=== PATIENT | male | born 1935 | race Native Hawaiian/Other Pacific Islander ===

== ENCOUNTER 2016-07-26 22:22 | Inpatient (IN) | payer MEDICARE ==
[2016-07-26 22:23] VITALS: BMI 23.1
[2016-07-26] MEDS ORDERED: Albuterol-Ipratrop 3 mg / 0.5 (3 ml) UD ONE (22:29)
--- NOTE | 2016-07-26 22:56 | C.PDOC ---
History Of Present Illness 81 y/o male presents to the ED with complains of SOB which onset after a bowel movement today. Pt denies chest pain, cough, dizziness or any other complaints. PMHx diabetes, renal failure. Pt stopped taking diuretic after running out of med 10 days ago. Chief Complaint (Nursing): Shortness Of Breath History Per: Patient History/Exam Limitations: no limitations Onset/Duration Of Symptoms: Hrs Current Symptoms Are (Timing): Still Present Severity: Mild Associated Symptoms: denies: Fever, Chills, Chest Pain, Dizziness Recent travel outside of the [place]: No Past Medical History Reviewed: Historical Data, Nursing Documentation, Vital Signs Vital Signs: Last Vital Signs Temp Pulse 73 07/26/16 22:36 Resp 18 07/26/16 23:15 BP 153/69 H 07/26/16 23:15 Pulse Ox 98 07/27/16 00:19 - Medical History PMH: Anemia, Diabetes, Diverticulitis, HTN, Hypercholesterolemia, Mitral Valve Prolapse, Pneumonia, Chronic Kidney Disease Surgical History: Appendectomy, Coronary Stent (3 yrs), Endoscopy - [facility] Procedures CYSTOSCOPY NEC (11/20/13) INSERT INDWELLING CATH (11/20/13) OTH LYSIS-PERITONEAL ADHES (11/20/13) URETHRAL DILATION (11/20/13) Family History: States: Unknown Family Hx - Social History Hx Tobacco Use: No Hx Alcohol Use: No Hx Substance Use: No - Immunization History Hx Tetanus Toxoid Vaccination: No Hx Influenza Vaccination: No Hx Pneumococcal Vaccination: No Review Of Systems Except As Marked, All Systems Reviewed And Found Negative. Constitutional: Negative for: Fever Cardiovascular: Negative for: Chest Pain Respiratory: Positive for: Shortness of Breath. Negative for: Cough Gastrointestinal: Negative for: Vomiting Neurological: Negative for: Dizziness Physical Exam - Physical Exam Appears: Non-toxic, No Acute Distress Skin: Warm, Dry, No Rash Head: Atraumatic, Normacephalic Oral Mucosa: Moist Throat: Normal, No Erythema Neck: Normal ROM, Supple, Other (JVD) Chest: Symmetrical Cardiovascular: Rhythm Regular, No Murmur Respiratory: Rales (bilateral lower lung quispe), No Rhonchi, No Wheezing, Other (patient short of breath) Gastrointestinal/Abdominal: Soft Extremity: No Pedal Edema Extremity: Bilateral: Atraumatic Neurological/Psych: Oriented x3, Normal Speech ED Course And Treatment - Laboratory Results Result Diagrams: 07/26/16 23:33 07/26/16 23:33 ECG: Interpreted By Me, Viewed By Me ECG Rhythm: Sinus Rhythm, 1st Degree HB ECG Interpretation: Normal, No Acute Changes Interpretation Of ECG: NSR, 1st degree av block, no acute change, normal tracings Rate From EC O2 Sat by Pulse Oximetry: 98 (on room air) Pulse Ox Interpretation: Normal - Radiology CXR: Interpreted by Me, Viewed By Me CXR Interpretation: Yes: Cardiomegaly, Other (pulm. congestion, lisa bases) Medical Decision Making Medical Decision Making: Plan: CXR, EKG, labs, IV fluids, Lasix Disposition Discussed With : Ana Noel Doctor Will See Patient In The: Hospital Counseled Patient/Family Regarding: Diagnosis - Disposition Disposition: HOSPITALIZED Disposition Time: 00:35 Condition: STABLE - POA Present On Arrival: None - Clinical Impression Clinical Impression: Dyspnea, CHF exacerbation, Hypertension, Renal insufficiency - Scribe Statement The provider has reviewed the documentation as recorded by the Beatris Moct[place]uma Provider Attestation: All medical record entries made by the Beatris were at my direction and personally dictated by me. I have reviewed the chart and agree that the record accurately reflects my personal performance of the history, physical exam, medical decision making, and the department course for this patient. I have also personally directed, reviewed, and agree with the discharge instructions and disposition.
[2016-07-26 23:36] LABS: BASO # 0.1 K/uL (0.0-0.2); BASO % 0.7 % (0.0-2.0); EOS # 0.4 K/uL (0.0-0.7); EOS % 3.8 % (0.0-4.0); HEMATOCRIT 25.5 % (35.0-51.0); LYMPH # 1.5 K/uL (1.0-4.3); LYMPH % 16.3 % (20.0-40.0); MEAN CELL VOLUME 61.6 fL (80.0-94.0); MEAN CORPUSCULAR HEMOGLOBIN 19.2 pg (27.0-31.0); MEAN CORPUSCULAR HGB CONC 31.1 g/dL (33.0-37.0); MEAN PLATELET VOLUME 8.8 fL (7.2-11.7); MONO # 1.1 K/uL (0.0-0.8); MONO % 11.3 % (0.0-10.0); RED CELL DISTRIBUTION WIDTH 18.1 % (11.5-14.5); WHITE BLOOD COUNT 9.5 K/uL (4.8-10.8)
[2016-07-26 23:41] LABS: POTASSIUM 4.5 mmol/L (3.6-5.2)
[2016-07-26 23:43] LABS: BILIRUBIN,TOTAL 0.4 mg/dL (0.2-1.3)
[2016-07-26 23:44] LABS: ALB/GLOB RATIO 1.4 (1.0-2.1); TOTAL PROTEIN 7.1 g/dL (6.3-8.3)
[2016-07-26 23:45] LABS: CALCIUM 8.3 mg/dl (8.6-10.4)
[2016-07-26 23:56] LABS: TROPONIN I 0.015 ng/mL (0.00-0.120)
[2016-07-27] MEDS ORDERED: Albuterol HFA 90 mcg/actuation (8 g) IH PRN (00:58)
--- NOTE | 2016-07-27 09:10 | RAD ---
PROCEDURE: CHEST RADIOGRAPH, 1 VIEW HISTORY: SOB COMPARISON: 02/11/2016 FINDINGS: LUNGS: Clear. PLEURA: No pneumothorax or pleural fluid seen. CARDIOVASCULAR: Mild cardiomegaly. Mild vascular congestion OSSEOUS STRUCTURES: No significant abnormalities. VISUALIZED UPPER ABDOMEN: Normal. OTHER FINDINGS: None. IMPRESSION: No active disease.
[2016-07-27] MEDS: Enoxaparin 30 mg Syringe SC SCH (09:34)
[2016-07-27] MEDS: (Novolog) Insulin Aspart, Recombinant 100 u/ml 10 ml vial SC SCH ×3 (09:38→16:52)
[2016-07-27] MEDS ORDERED: HYDROCHLOROTHIAZIDE PO SCH (10:00)
[2016-07-27] MEDS ORDERED: LOSARTAN PO SCH (10:00)
[2016-07-27] MEDS ORDERED: OLMESARTAN MED PO SCH (10:00)
[2016-07-27] MEDS ORDERED: AMLODIPINE BES PO SCH (10:00)
[2016-07-27] MEDS ORDERED: Home Med 1 UNIT (Atorvastatin [Lipitor] 20 MG) PO SCH (10:00)
[2016-07-27] MEDS ORDERED: Pantoprazole 40 mg EC Tab PO SCH (10:00)
--- NOTE | 2016-07-27 11:13 | CP.PCM.HP ---
History of Present Illness - History of Present Illness History of Present Illness: 81 y.o. male with PMH IDDM2 Hypertension CAD s/p Stent COPD CHF Anemia GIB admitted for acute onset of shortness of breath few hours prior to admission- there are no fevr no chest pain, no MARINELLI, but bety admits leg swelling and admits not taking his lasix for almost a week and reports wheezing but some occassional dry cough IN ER, patient was given asix CXR showed mild congestion, Hemoglobin showed 7, with no active bleeding patient was admitted for further evaluation and management PMH as above Surgery Stent meds see listing NKDA Present on Admission - Present on Admission Any Indicators Present on Admission: Yes History of DVT/PE: No History of Uncontrolled Diabetes: Yes Urinary Catheter: No Decubitus Ulcer Present: No Review of Systems - Constitutional Constitutional: absent: Chills, Fatigue, Lethargy, Malaise, Weakness - EENT Eyes: absent: Change in Vision, Other Visual Disturbances, Loss of Vision Ears: absent: Ear Discharge, Ear Pain Nose/Mouth/Throat: absent: Nasal Congestion, Nasal Discharge, Sore Throat - Cardiovascular Cardiovascular: absent: Chest Pain, Chest Pain at Rest, Dyspnea, Dyspnea on Exertion, Syncope - Respiratory Respiratory: Cough (occassional , dry ), Wheezing. absent: Chest Congestion - Gastrointestinal Gastrointestinal: absent: Abdominal Pain, Constipation, Diarrhea, Vomiting - Genitourinary Genitourinary: absent: Difficulty Urinating, Dysuria - Musculoskeletal Musculoskeletal: Joint Swelling (bipedal swelling ). absent: Abnormal Gait, Deformity - Integumentary Integumentary: absent: Bleeding Lesions, Skin Ulcer, Unusual Bruising - Neurological Neurological: absent: Abnormal Gait, Behavioral Changes, Convulsions - Psychiatric Psychiatric: absent: Behavioral Changes, Confusion, Depression - Endocrine Endocrine: absent: Polydipsia, Polyphagia, Polyuria - Hematologic/Lymphatic Hematologic: absent: Easy Bleeding, Easy Bruising Past Patient History - Infectious Disease Hx of Infectious Diseases: None - Tetanus Immunizations Tetanus Immunization: Unknown - Past Medical History & Family History Past Medical History?: Yes - Past Social History Smoking Status: Former Smoker - CARDIAC Hx Cardiac Disorders: Yes Hx Congestive Heart Failure: Yes Hx Hypercholesterolemia: Yes Hx Hypertension: Yes Hx Mitral Valve Prolapse: Yes - PULMONARY Hx Chronic Obstructive Pulmonary Disease (COPD): Yes Hx Pneumonia: Yes - NEUROLOGICAL Hx Neurological Disorder: No - HEENT Hx HEENT Problems: Yes Hx Cataracts: Yes (both eyes) - RENAL Hx Chronic Kidney Disease: Yes - ENDOCRINE/METABOLIC Hx Endocrine Disorders: Yes Hx Diabetes Mellitus Type 2: Yes - HEMATOLOGICAL/ONCOLOGICAL Hx Anemia: Yes - INTEGUMENTARY Hx Dermatological Problems: No - GASTROINTESTINAL Hx Diverticulitis: Yes - GENITOURINARY/GYNECOLOGICAL Hx Genitourinary Disorders: Yes Hx Prostate Cancer: Yes - PSYCHIATRIC Hx Substance Use: No - SURGICAL HISTORY Hx Appendectomy: Yes Hx Coronary Stent: Yes (3 yrs) - ANESTHESIA Hx Anesthesia: Yes Hx Anesthesia Reactions: No Hx Malignant Hyperthermia: No Meds Allergies/Adverse Reactions: Allergies Allergy/AdvReac Type Severity Reaction Status Date / Time No Known Allergies Allergy Verified 07/26/16 22:38 Physical Exam - Constitutional Appears: Non-toxic (in icu bed, conversant, ) - Head Exam Head Exam: ATRAUMATIC, NORMOCEPHALIC - Eye Exam Eye Exam: Normal appearance. absent: Nystagmus - ENT Exam ENT Exam: Mucous Membranes Moist - Neck Exam Neck exam: Positive for: Full Rom. Negative for: Tenderness - Respiratory Exam Respiratory Exam: Wheezes, NORMAL BREATHING PATTERN (distant ). absent: Respiratory Distress - Cardiovascular Exam Cardiovascular Exam: REGULAR RHYTHM - GI/Abdominal Exam GI & Abdominal Exam: Normal Bowel Sounds, Soft. absent: Tenderness - Extremities Exam Extremities exam: Positive for: full ROM, joint swelling (no edema at this point ) - Back Exam Back exam: FULL ROM. absent: tenderness - Neurological Exam Neurological exam: Alert, Normal Gait, Oriented x3 - Psychiatric Exam Psychiatric exam: Normal Affect, Normal Mood - Skin Skin Exam: Intact, Normal Color Results - Vital Signs Recent Vital Signs: Last Vital Signs Temp 98 F 07/27/16 07:20 Pulse 69 07/27/16 07:20 Resp 15 07/27/16 07:20 BP 173/68 H 07/27/16 09:33 Pulse Ox 100 07/27/16 07:20 - Labs Result Diagrams: 07/26/16 23:33 07/26/16 23:33 Labs: Laboratory Results - last 24 hr 07/27/16 07/27/16 06:28 07:35 POC Glucose (mg/dL) 161 H Total Creatine Kinase 232 H CK-MB (Mass) 2.99 Troponin I, Quant 0.0320 Assessment & Plan - Assessment and Plan (Free Text) Assessment: Patient admitted for acute SOB- possibilities Rule out PE- CT awaiting results COPD Exacerbation CHF axacerbation Severe Anemia- transfusion Gastro will try antibiotic , steroid, and respiratory treatment Lasix Gastro- will temporarily hold Aspirin, plavix and Lovenox- to leg sequential- until GI evaluation REnal and CHF diet heart healthy DM continue monitoring, sliding scale Discussion with consultants staff and patient and daughter at bedside
[2016-07-27] MEDS ORDERED: Azithromycin 500 MG in Sodium Chloride 0.9% 250 ML IVPB ONE (12:00)
[2016-07-27] MEDS ORDERED: MethylPREDNISolone 40 mg Vial IVP SCH (12:00)
[2016-07-27] MEDS: Albuterol-Ipratrop 3 mg / 0.5 (3 ml) UD INH SCH ×2 (13:47→19:14)
--- NOTE | 2016-07-27 14:00 | NM ---
COMPARISON: July 26, 2016. TECHNIQUE: 6.3 mCi technetium 99-m Xe-133 Gas. 3.4 mCI technetium 99-m MAA administered intravenously. FINDINGS: VENTILATION COMPONENT: Normal. PERFUSION COMPONENT: Heterogeneous distribution of radionuclide. No geographic, segmental, lobar abnormalities apparent on the present examination. IMPRESSION: Low probability ventilation perfusion scan for pulmonary embolism.
--- NOTE | 2016-07-27 17:53 | CP.PCM.CON ---
History of Present Illness - History of Present Illness History of Present Illness: pt seen and examined, full consult is dictated #[id number] Past Patient History - Infectious Disease Hx of Infectious Diseases: None - Tetanus Immunizations Tetanus Immunization: Unknown - Past Medical History & Family History Past Medical History?: Yes - Past Social History Smoking Status: Former Smoker - CARDIAC Hx Cardiac Disorders: Yes Hx Congestive Heart Failure: Yes Hx Hypercholesterolemia: Yes Hx Hypertension: Yes Hx Mitral Valve Prolapse: Yes - PULMONARY Hx Chronic Obstructive Pulmonary Disease (COPD): Yes Hx Pneumonia: Yes - NEUROLOGICAL Hx Neurological Disorder: No - HEENT Hx HEENT Problems: Yes Hx Cataracts: Yes (both eyes) - RENAL Hx Chronic Kidney Disease: Yes - ENDOCRINE/METABOLIC Hx Endocrine Disorders: Yes Hx Diabetes Mellitus Type 2: Yes - HEMATOLOGICAL/ONCOLOGICAL Hx Anemia: Yes - INTEGUMENTARY Hx Dermatological Problems: No - GASTROINTESTINAL Hx Diverticulitis: Yes - GENITOURINARY/GYNECOLOGICAL Hx Genitourinary Disorders: Yes Hx Prostate Cancer: Yes - PSYCHIATRIC Hx Substance Use: No - SURGICAL HISTORY Hx Appendectomy: Yes Hx Coronary Stent: Yes (3 yrs) - ANESTHESIA Hx Anesthesia: Yes Hx Anesthesia Reactions: No Hx Malignant Hyperthermia: No Meds Allergies/Adverse Reactions: Allergies Allergy/AdvReac Type Severity Reaction Status Date / Time No Known Allergies Allergy Verified 07/26/16 22:38 - Medications Medications: Current Medications Albuterol (Ventolin Hfa 90 Mcg/Actuation (8 G)) 2 puff IH RQ4 PRN PRN Reason: Wheezing Albuterol/Ipratropium (Duoneb 3 Mg/0.5 Mg (3 Ml) Ud) 3 ml INH RQ6 [facility] Last Admin: 07/27/16 13:47 Dose: 3 ml Amlodipine Besylate (Norvasc) 10 mg PO DAILY [facility] Last Admin: 07/27/16 12:26 Dose: 10 mg Aspirin (Ecotrin) 81 mg PO DAILY [facility] Last Admin: 07/27/16 09:34 Dose: 81 mg Azithromycin (Zithromax) 250 mg PO DAILY [facility] Stop: 07/31/16 10:01 Clopidogrel Bisulfate (Plavix) 75 mg PO DAILY [facility] Last Admin: 07/27/16 09:34 Dose: 75 mg Enoxaparin Sodium (Lovenox) 30 mg SC DAILY [facility] Last Admin: 07/27/16 09:34 Dose: 30 mg Famotidine (Pepcid) 20 mg PO DAILY [facility] Furosemide (Lasix) 20 mg IVP BID [facility] Glimepiride (Amaryl) 2 mg PO TID [facility] Last Admin: 07/27/16 13:51 Dose: 2 mg Hydralazine HCl (Apresoline) 50 mg PO TID [facility] Last Admin: 07/27/16 13:51 Dose: 50 mg Hydrochlorothiazide (Hydrodiuril) 25 mg PO DAILY [facility] Last Admin: 07/27/16 11:20 Dose: 25 mg Ceftriaxone Sodium 1 gm/ (Sodium Chloride) 100 mls @ 100 mls/hr IVPB Q24H [facility] Last Admin: 07/27/16 12:58 Dose: 100 mls/hr Insulin Aspart (Novolog) 0 unit SC TIDAC [facility] PRN Reason: Protocol Last Admin: 07/27/16 16:52 Dose: 10 unit Losartan Potassium (Cozaar) 100 mg PO DAILY [facility] Last Admin: 07/27/16 11:12 Dose: 100 mg Methylprednisolone (Solu-Medrol) 40 mg IVP Q8 [facility] Metoprolol Tartrate (Lopressor) 25 mg PO DAILY [facility] Rosuvastatin Calcium (Crestor) 10 mg PO HS [facility] Tiotropium [place] (Spiriva) 18 mcg INH RQ24 [facility] Results - Vital Signs Recent Vital Signs: Last Vital Signs Temp 97.2 F L 07/27/16 16:00 Pulse 67 07/27/16 16:00 Resp 16 07/27/16 16:00 BP 143/62 07/27/16 16:00 Pulse Ox 99 07/27/16 16:00 - Labs Result Diagrams: 07/26/16 23:33 07/26/16 23:33 Labs: Laboratory Results - last 24 hr 07/27/16 07/27/16 07/27/16 06:28 07:35 11:37 POC Glucose (mg/dL) 161 H Total Creatine Kinase 232 H CK-MB (Mass) 2.99 Troponin I, Quant 0.0320 Blood Type A POSITIVE Antibody Screen Negative 07/27/16 07/27/16 12:23 16:10 POC Glucose (mg/dL) 143 H 355 H Total Creatine Kinase CK-MB (Mass) Troponin I, Quant Blood Type Antibody Screen
--- NOTE | 2016-07-27 18:53 | CP.PCM.CON ---
History of Present Illness - History of Present Illness History of Present Illness: Reason for consultation: Shortness of breath 81-year-old male admitted for acute onset of shortness of breath few hours prior to admission, denies fever or chills, denies chest pain complaining of leg swelling and admits not taking his lasix for almost a week and reports wheezing but some occassional dry cough IN ER, patient was given asix CXR showed mild congestion, Hemoglobin showed 7, with no active bleeding Review of Systems - Review of Systems All systems: reviewed and no additional remarkable complaints except (Shortness of breath) Past Patient History - Infectious Disease Hx of Infectious Diseases: None - Tetanus Immunizations Tetanus Immunization: Unknown - Past Medical History & Family History Past Medical History?: Yes - Past Social History Smoking Status: Former Smoker - CARDIAC Hx Cardiac Disorders: Yes Hx Congestive Heart Failure: Yes Hx Hypercholesterolemia: Yes Hx Hypertension: Yes Hx Mitral Valve Prolapse: Yes - PULMONARY Hx Chronic Obstructive Pulmonary Disease (COPD): Yes Hx Pneumonia: Yes - NEUROLOGICAL Hx Neurological Disorder: No - HEENT Hx HEENT Problems: Yes Hx Cataracts: Yes (both eyes) - RENAL Hx Chronic Kidney Disease: Yes - ENDOCRINE/METABOLIC Hx Endocrine Disorders: Yes Hx Diabetes Mellitus Type 2: Yes - HEMATOLOGICAL/ONCOLOGICAL Hx Anemia: Yes - INTEGUMENTARY Hx Dermatological Problems: No - GASTROINTESTINAL Hx Diverticulitis: Yes - GENITOURINARY/GYNECOLOGICAL Hx Genitourinary Disorders: Yes Hx Prostate Cancer: Yes - PSYCHIATRIC Hx Substance Use: No - SURGICAL HISTORY Hx Appendectomy: Yes Hx Coronary Stent: Yes (3 yrs) - ANESTHESIA Hx Anesthesia: Yes Hx Anesthesia Reactions: No Hx Malignant Hyperthermia: No Meds Allergies/Adverse Reactions: Allergies Allergy/AdvReac Type Severity Reaction Status Date / Time No Known Allergies Allergy Verified 07/26/16 22:38 - Medications Medications: Current Medications Albuterol (Ventolin Hfa 90 Mcg/Actuation (8 G)) 2 puff IH RQ4 PRN PRN Reason: Wheezing Albuterol/Ipratropium (Duoneb 3 Mg/0.5 Mg (3 Ml) Ud) 3 ml INH RQ6 [facility] Last Admin: 07/27/16 13:47 Dose: 3 ml Amlodipine Besylate (Norvasc) 10 mg PO DAILY [facility] Last Admin: 07/27/16 12:26 Dose: 10 mg Aspirin (Ecotrin) 81 mg PO DAILY [facility] Last Admin: 07/27/16 09:34 Dose: 81 mg Azithromycin (Zithromax) 250 mg PO DAILY [facility] Stop: 07/31/16 10:01 Clopidogrel Bisulfate (Plavix) 75 mg PO DAILY [facility] Last Admin: 07/27/16 09:34 Dose: 75 mg Enoxaparin Sodium (Lovenox) 30 mg SC DAILY [facility] Last Admin: 07/27/16 09:34 Dose: 30 mg Famotidine (Pepcid) 20 mg PO DAILY [facility] Furosemide (Lasix) 20 mg IVP BID [facility] Last Admin: 07/27/16 18:09 Dose: 20 mg Glimepiride (Amaryl) 2 mg PO TID [facility] Last Admin: 07/27/16 18:09 Dose: 2 mg Hydralazine HCl (Apresoline) 50 mg PO TID [facility] Last Admin: 07/27/16 18:09 Dose: 50 mg Hydrochlorothiazide (Hydrodiuril) 25 mg PO DAILY [facility] Last Admin: 07/27/16 11:20 Dose: 25 mg Ceftriaxone Sodium 1 gm/ (Sodium Chloride) 100 mls @ 100 mls/hr IVPB Q24H [facility] Last Admin: 07/27/16 12:58 Dose: 100 mls/hr Insulin Aspart (Novolog) 0 unit SC TIDAC [facility] PRN Reason: Protocol Last Admin: 07/27/16 16:52 Dose: 10 unit Losartan Potassium (Cozaar) 100 mg PO DAILY [facility] Last Admin: 07/27/16 11:12 Dose: 100 mg Methylprednisolone (Solu-Medrol) 40 mg IVP Q8 [facility] Metoprolol Tartrate (Lopressor) 25 mg PO DAILY [facility] Rosuvastatin Calcium (Crestor) 10 mg PO HS [facility] Tiotropium [place] (Spiriva) 18 mcg INH RQ24 [facility] Physical Exam - Head Exam Head Exam: ATRAUMATIC, NORMOCEPHALIC - Eye Exam Eye Exam: Normal appearance - ENT Exam ENT Exam: Mucous Membranes Moist - Neck Exam Neck exam: Positive for: Normal Inspection - Respiratory Exam Respiratory Exam: Decreased Breath Sounds - Cardiovascular Exam Cardiovascular Exam: REGULAR RHYTHM - GI/Abdominal Exam GI & Abdominal Exam: Normal Bowel Sounds, Soft - Extremities Exam Extremities exam: Positive for: normal inspection Results - Vital Signs Recent Vital Signs: Last Vital Signs Temp 97.3 F L 07/27/16 18:00 Pulse 73 07/27/16 18:00 Resp 16 07/27/16 18:00 BP 151/69 H 07/27/16 18:09 Pulse Ox 99 07/27/16 16:00 - Labs Result Diagrams: 07/26/16 23:33 07/26/16 23:33 Labs: Laboratory Results - last 24 hr 07/27/16 07/27/16 07/27/16 06:28 07:35 11:37 POC Glucose (mg/dL) 161 H Total Creatine Kinase 232 H CK-MB (Mass) 2.99 Troponin I, Quant 0.0320 Stool Occult Blood Blood Type A POSITIVE Antibody Screen Negative 07/27/16 07/27/16 07/27/16 12:23 16:10 18:15 POC Glucose (mg/dL) 143 H 355 H Total Creatine Kinase CK-MB (Mass) Troponin I, Quant Stool Occult Blood Positive H Blood Type Antibody Screen Assessment & Plan (1) SOB (shortness of breath) Status: Acute Comment: Secondary to COPD and anemia. IV steroids and nebulizer treatment. Transfusions as necessary. Seen by nephrology
[2016-07-27] MEDS ORDERED: Fluticasone-Salmeterol 250-50mcg Diskus INH SCH (20:00)
[2016-07-27 20:25] LABS: HEMATOCRIT 29.5 % (35.0-51.0)
--- NOTE | 2016-07-27 20:47 | CON ---
DATE: 07/27/2016 The patient is located in ICU bed 18. Admitted to telemetry, but the patient is located in ICU at th is time. The patient is an 81-year-old elderly male with a past medical history significant for long-standing hypertension, diabetes, hyperlipidemia, coronary artery disease, chronic kidney disease, CHF status p ost cardiac cath and stent placement in May, was admitted to the Emergency Room with a chief com plaint of sudden onset shortness of breath. As per the patient, he tried to move his bowel movements yesterday. After that, he suddenly started feeling short of breath and he felt he was going to pass out, and he asked his to bring him to the hospital. The patient denies any chest pain, denies any palpitation. Denies any nausea, vomiting, diarrhea. Denies any abdominal pain. PAST MEDICAL HISTORY: Significant for long-standing hypertension, diabetes, hyperlipidemia, chronic kidney disease, proteinuria, coronary artery disease, and status post stent. PAST SURGICAL HISTORY: History of prostate surgery, and also hernia repair, and also appendectomy, a nd lipoma removal on the leg. ALLERGIES: No known drug allergies. SOCIAL HISTORY: The patient was a former smoker, quit a long time ago, more than 40 or 50 years ago. The patient takes a small quantity of wine after dinner daily. No drug abuse. PERSONAL HISTORY: He is and he has a very supportive family and . CURRENT MEDICATIONS: Include as follows: Glimepiride 0.2 mg p.o. t.i.d., and hydralazine 50 mg p.o. t.i.d., and Rocephin 1 g q. 24 hours, losartan 100 mg p.o. daily, Crestor 10 mg at bedtime, and DuoN eb inhaler q. 6 hours, aspirin 81 mg daily, hydrochlorothiazide 25 mg p.o. daily, and Lasix 20 mg p.o . b.i.d., metoprolol 25 mg p.o. daily, Lovenox on hold, and amlodipine 10 mg p.o. daily, NovoLog for sliding scale, and Pepcid 20 mg p.o. daily, Plavix 75 mg daily on hold, and prednisone 40 mg IV q. 8 hours, and Ventolin inhaler 2 puffs q. 4 hours, and Zithromax 250 mg p.o. daily. FAMILY HISTORY: Not significant. He has a very supportive family. REVIEW OF SYSTEMS: Significant for a sudden onset shortness of breath after moving his bowels, and d enies any chest pain. Denies any fever, cough. Denies any nausea, vomiting, diarrhea. The patient does complain of slight swelling of the legs last week, and he was noncompliant with Lasix. All othe r review of systems are reviewed and are negative. PHYSICAL EXAMINATION: VITAL SIGNS: As follows: Blood pressure 151/69, pulse 73, respirations 16, temperature 97.3, satura tion 99%. Height 5 feet 3 inches, and weight about 167 pounds. HENT AND PHYSICAL EXAMINATION: The patient is an 81-year-old elderly male, moderately built, moderat merline nourished, not in acute distress. HENT: Pupils normal, reactive to light and accommodation. Conjunctivae pink, sclerae anicteric. To ngue is moist. Trachea is midline. LUNGS: Symmetric on both sides. Bilateral breath sounds present. Occasional basal crackles present on the left side. CARDIOVASCULAR SYSTEM: Sunset at the 5th intercostal space midclavicular line. S1 and S2 audible. No murmur or gallop. ABDOMEN: Normal in appearance. Soft, tympanic, no guarding, no rigidity, no hepatosplenomegaly. CENTRAL NERVOUS SYSTEM: The patient is alert, awake, oriented x 3, nonfocal on examination. Cranial nerves II-XII grossly intact. Sensory and motor system is within normal limits. EXTREMITIES: No cyanosis, no clubbing, no edema. Dorsalis pedis pulses are palpable. LABORATORY DATA: Include as follows as of 07/26/2016: WBC 9.5, hemoglobin 7.9, hematocrit is 25.5, platelets 163, MCV 61.6. PT 11.2, PTT 36, and D-dimer 444. Sodium 129, potassium is 4.5, chloride 9 3, CO2 of 19, and anion gap is 22, BUN 48, creatinine is 2.5, and glucose is 190, calcium is 8.3, tot al bilirubin 0.4. AST 28, ALT 34, alkaline phos is 66. Troponin 0.015, and CPK 232, and CK-MB 2.9. Repeat troponin levels 0.032, and proBNP is 2810, total protein 7.1, albumin is 4.9. Stool for occu lt blood is positive. Accu-Cheks 161, 143, and 355. As of 07/26/2016, chest x-ray no active disease, and V/Q scan low probability for ventilation perfusi on scan for pulmonary embolism. In summary, the patient is an 81-year-old elderly Turk[place] male with a history of long-standing hyper tension, diabetes, hyperlipidemia, coronary artery disease status post cardiac cath and status post s tent placement in May, with elevated BUN and creatinine, low H and H. 1. 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 Cannot rule out u nderlying hypertensive nephrosclerosis. 2. Anemia, most likely a slow gastrointestinal bleed, and cannot rule out iron deficiency anemia. 3. Coronary artery disease. 4. Diabetes. 5. Hypertension. PLAN: Check iron, TIBC, ferritin level. The patient is receiving 1 unit of packed RBC transfusion a t this time. Follow up H and H level, and will consider to add erythropoietin stimulating agents dep ending upon iron saturation. Will follow with you. Thank you for allowing me to participate in your patient's care. Will also check PTH intact level, and repeat CBC, BMP in the a.m., and iron, TIBC, ferritin level in a.m. Aamir Galeano MD cc: [id number] TT: 07/27/2016 20:46:54 Confirmation # [id number] Dictation # [id number]
[2016-07-27 20:50] LABS: IRON 103 ug/dL (49-181)
--- NOTE | 2016-07-27 21:00 | CP.PCM.CON ---
History of Present Illness - History of Present Illness History of Present Illness: 81 Male with Hx of CAD s/p CHUCHO 06/16, HTN, CKD, Diastolic CHF admitted with Dyspnea and Anemia (GIB) feels better after IV Lasix and PRBC transfusion Past Patient History - Infectious Disease Hx of Infectious Diseases: None - Tetanus Immunizations Tetanus Immunization: Unknown - Past Medical History & Family History Past Medical History?: Yes - Past Social History Smoking Status: Former Smoker - CARDIAC Hx Cardiac Disorders: Yes Hx Congestive Heart Failure: Yes Hx Hypercholesterolemia: Yes Hx Hypertension: Yes Hx Mitral Valve Prolapse: Yes - PULMONARY Hx Chronic Obstructive Pulmonary Disease (COPD): Yes Hx Pneumonia: Yes - NEUROLOGICAL Hx Neurological Disorder: No - HEENT Hx HEENT Problems: Yes Hx Cataracts: Yes (both eyes) - RENAL Hx Chronic Kidney Disease: Yes - ENDOCRINE/METABOLIC Hx Endocrine Disorders: Yes Hx Diabetes Mellitus Type 2: Yes - HEMATOLOGICAL/ONCOLOGICAL Hx Anemia: Yes - INTEGUMENTARY Hx Dermatological Problems: No - GASTROINTESTINAL Hx Diverticulitis: Yes - GENITOURINARY/GYNECOLOGICAL Hx Genitourinary Disorders: Yes Hx Prostate Cancer: Yes - PSYCHIATRIC Hx Substance Use: No - SURGICAL HISTORY Hx Appendectomy: Yes Hx Coronary Stent: Yes (3 yrs) - ANESTHESIA Hx Anesthesia: Yes Hx Anesthesia Reactions: No Hx Malignant Hyperthermia: No Meds Allergies/Adverse Reactions: Allergies Allergy/AdvReac Type Severity Reaction Status Date / Time No Known Allergies Allergy Verified 07/26/16 22:38 - Medications Medications: Current Medications Albuterol (Ventolin Hfa 90 Mcg/Actuation (8 G)) 2 puff IH RQ4 PRN PRN Reason: Wheezing Albuterol/Ipratropium (Duoneb 3 Mg/0.5 Mg (3 Ml) Ud) 3 ml INH RQ6 [facility] Last Admin: 07/27/16 19:14 Dose: 3 ml Amlodipine Besylate (Norvasc) 10 mg PO DAILY [facility] Last Admin: 07/27/16 12:26 Dose: 10 mg Aspirin (Ecotrin) 81 mg PO DAILY [facility] Last Admin: 07/27/16 09:34 Dose: 81 mg Azithromycin (Zithromax) 250 mg PO DAILY [facility] Stop: 07/31/16 10:01 Clopidogrel Bisulfate (Plavix) 75 mg PO DAILY [facility] Last Admin: 07/27/16 09:34 Dose: 75 mg Enoxaparin Sodium (Lovenox) 30 mg SC DAILY [facility] Last Admin: 07/27/16 09:34 Dose: 30 mg Famotidine (Pepcid) 20 mg PO DAILY [facility] Furosemide (Lasix) 20 mg IVP BID [facility] Last Admin: 07/27/16 18:09 Dose: 20 mg Glimepiride (Amaryl) 2 mg PO TID [facility] Last Admin: 07/27/16 18:09 Dose: 2 mg Hydralazine HCl (Apresoline) 50 mg PO TID [facility] Last Admin: 07/27/16 18:09 Dose: 50 mg Hydrochlorothiazide (Hydrodiuril) 25 mg PO DAILY [facility] Last Admin: 07/27/16 11:20 Dose: 25 mg Ceftriaxone Sodium 1 gm/ (Sodium Chloride) 100 mls @ 100 mls/hr IVPB Q24H [facility] Last Admin: 07/27/16 12:58 Dose: 100 mls/hr Insulin Aspart (Novolog) 0 unit SC TIDAC [facility] PRN Reason: Protocol Last Admin: 07/27/16 16:52 Dose: 10 unit Losartan Potassium (Cozaar) 100 mg PO DAILY [facility] Last Admin: 07/27/16 11:12 Dose: 100 mg Methylprednisolone (Solu-Medrol) 40 mg IVP Q8 [facility] Metoprolol Tartrate (Lopressor) 25 mg PO DAILY [facility] Rosuvastatin Calcium (Crestor) 10 mg PO HS [facility] Tiotropium [place] (Spiriva) 18 mcg INH RQ24 [facility] Vitamin B Complex/Vit C/Folic Acid (Nephro-Anny) 1 tab PO DAILY [facility] Results - Vital Signs Recent Vital Signs: Last Vital Signs Temp 97.3 F L 07/27/16 18:00 Pulse 73 07/27/16 18:00 Resp 16 07/27/16 18:00 BP 151/69 H 07/27/16 18:09 Pulse Ox 99 07/27/16 16:00 - Labs Result Diagrams: 07/27/16 20:21 07/26/16 23:33 Labs: Laboratory Results - last 24 hr 07/27/16 07/27/16 07/27/16 06:28 07:35 11:37 Hgb Hct POC Glucose (mg/dL) 161 H Iron Total Creatine Kinase 232 H CK-MB (Mass) 2.99 Troponin I, Quant 0.0320 Stool Occult Blood Blood Type A POSITIVE Antibody Screen Negative 0307/27/16 07/27/16 12:23 16:10 18:15 Hgb Hct POC Glucose (mg/dL) 143 H 355 H Iron Total Creatine Kinase CK-MB (Mass) Troponin I, Quant Stool Occult Blood Positive H Blood Type Antibody Screen 07/27/16 20:21 Hgb 9.3 L Hct 29.5 L POC Glucose (mg/dL) Iron 103 Total Creatine Kinase 217 H CK-MB (Mass) 2.66 Troponin I, Quant 0.0190 Stool Occult Blood Blood Type Antibody Screen
--- NOTE | 2016-07-27 21:24 | CARD ---
APPROVED REPORT EKG Measurement Heart [id number] <Conclusion> Normal Sinus with mild first degree av block Atrial premature beats. Abnormal ECG
[2016-07-27] MEDS: MethylPREDNISolone 40 mg Vial IVP SCH (21:27)
[2016-07-28] MEDS: Albuterol-Ipratrop 3 mg / 0.5 (3 ml) UD INH SCH ×4 (01:18→19:16)
[2016-07-28] MEDS: MethylPREDNISolone 40 mg Vial IVP SCH ×3 (05:47→21:14)
[2016-07-28 06:26] LABS: HEMATOCRIT 29.6 % (35.0-51.0); MEAN CELL VOLUME 63.8 fL (80.0-94.0); MEAN CORPUSCULAR HEMOGLOBIN 20.2 pg (27.0-31.0); MEAN CORPUSCULAR HGB CONC 31.7 g/dL (33.0-37.0); MEAN PLATELET VOLUME 9.6 fL (7.2-11.7); WHITE BLOOD COUNT 9.2 K/uL (4.8-10.8)
[2016-07-28 06:37] LABS: INR 1.1
[2016-07-28 06:40] LABS: POTASSIUM 4.3 mmol/L (3.6-5.2)
[2016-07-28 06:43] LABS: PHOSPHOROUS 5.4 mg/dL (2.5-4.5)
[2016-07-28 06:44] LABS: CALCIUM 8.7 mg/dl (8.6-10.4)
--- NOTE | 2016-07-28 08:02 | CP.PCM.CON ---
History of Present Illness - History of Present Illness History of Present Illness: This is an 81 year old man admitted with shortness of breath and anemia. Patient is known to me from a previous admission in Aug, 2014, for abdominal pain. He had previously had an episode of abdominal pain attributed to small bowel obstruction in 2013, and he underwent laparotomy and lysis of adhesions on 11/20/13. He did well with NG suction, he resumed eating, and was discharged on the following day. Patient states that he was found to be anemic approximately one month ago and was started on iron supplements. He stopped taking his diuretic one week prior to admission, and began to experience leg swelling. On the day prior to admission, he noted shortness of breath. On evaluation in the ER, the hemoglobin was 7.9, down from 9.5 on 06/12/2016. Stool for occult blood was positive. He denies having nausea, vomiting, loss of appetite, loss of weight, heartburn, difficulty swallowing or rectal bleeding. The bowel movements have been regular , no constipation or diarrhea, but the color has been dark, which he has attributed to iron supplements. The patient has never had a colonoscopy. Review of Systems - Review of Systems All systems: reviewed and no additional remarkable complaints except - Constitutional Constitutional: absent: Fever - EENT Eyes: absent: Change in Vision - Cardiovascular Cardiovascular: Dyspnea, Dyspnea on Exertion. absent: Chest Pain, Syncope - Respiratory Respiratory: Wheezing. absent: Cough - Gastrointestinal Gastrointestinal: absent: Abdominal Pain, Constipation, Diarrhea, Dysphagia, Heartburn, Hematochezia, Nausea, Vomiting - Genitourinary Genitourinary: absent: Dysuria, Hematuria - Integumentary Integumentary: absent: Rash Past Patient History - Infectious Disease Hx of Infectious Diseases: None - Tetanus Immunizations Tetanus Immunization: Unknown - Past Medical History & Family History Past Medical History?: Yes - Past Social History Smoking Status: Former Smoker - CARDIAC Hx Cardiac Disorders: Yes Hx Congestive Heart Failure: Yes Hx Hypercholesterolemia: Yes Hx Hypertension: Yes Hx Mitral Valve Prolapse: Yes - PULMONARY Hx Chronic Obstructive Pulmonary Disease (COPD): Yes Hx Pneumonia: Yes - NEUROLOGICAL Hx Neurological Disorder: No - HEENT Hx HEENT Problems: Yes Hx Cataracts: Yes (both eyes) - RENAL Hx Chronic Kidney Disease: Yes - ENDOCRINE/METABOLIC Hx Endocrine Disorders: Yes Hx Diabetes Mellitus Type 2: Yes - HEMATOLOGICAL/ONCOLOGICAL Hx Anemia: Yes - INTEGUMENTARY Hx Dermatological Problems: No - GASTROINTESTINAL Hx Diverticulitis: Yes - GENITOURINARY/GYNECOLOGICAL Hx Genitourinary Disorders: Yes Hx Prostate Cancer: Yes - PSYCHIATRIC Hx Substance Use: No - SURGICAL HISTORY Hx Appendectomy: Yes Hx Coronary Stent: Yes (3 yrs) - ANESTHESIA Hx Anesthesia: Yes Hx Anesthesia Reactions: No Hx Malignant Hyperthermia: No Meds Allergies/Adverse Reactions: Allergies Allergy/AdvReac Type Severity Reaction Status Date / Time No Known Allergies Allergy Verified 07/26/16 22:38 - Medications Medications: Current Medications Albuterol (Ventolin Hfa 90 Mcg/Actuation (8 G)) 2 puff IH RQ4 PRN PRN Reason: Wheezing Albuterol/Ipratropium (Duoneb 3 Mg/0.5 Mg (3 Ml) Ud) 3 ml INH RQ6 [facility] Last Admin: 07/28/16 01:18 Dose: Not Given Amlodipine Besylate (Norvasc) 10 mg PO DAILY [facility] Last Admin: 07/27/16 12:26 Dose: 10 mg Aspirin (Ecotrin) 81 mg PO DAILY [facility] Last Admin: 07/27/16 09:34 Dose: 81 mg Azithromycin (Zithromax) 250 mg PO DAILY [facility] Stop: 07/31/16 10:01 Clopidogrel Bisulfate (Plavix) 75 mg PO DAILY [facility] Last Admin: 07/27/16 09:34 Dose: 75 mg Enoxaparin Sodium (Lovenox) 30 mg SC DAILY [facility] Last Admin: 07/27/16 09:34 Dose: 30 mg Famotidine (Pepcid) 20 mg PO DAILY [facility] Furosemide (Lasix) 20 mg IVP BID [facility] Last Admin: 07/27/16 18:09 Dose: 20 mg Glimepiride (Amaryl) 2 mg PO TID [facility] Last Admin: 07/27/16 18:09 Dose: 2 mg Hydralazine HCl (Apresoline) 50 mg PO TID [facility] Last Admin: 07/27/16 18:09 Dose: 50 mg Hydrochlorothiazide (Hydrodiuril) 25 mg PO DAILY [facility] Last Admin: 07/27/16 11:20 Dose: 25 mg Ceftriaxone Sodium 1 gm/ (Sodium Chloride) 100 mls @ 100 mls/hr IVPB Q24H [facility] Last Admin: 07/27/16 12:58 Dose: 100 mls/hr Insulin Aspart (Novolog) 0 unit SC TIDAC [facility] PRN Reason: Protocol Last Admin: 07/27/16 16:52 Dose: 10 unit Losartan Potassium (Cozaar) 100 mg PO DAILY [facility] Last Admin: 07/27/16 11:12 Dose: 100 mg Methylprednisolone (Solu-Medrol) 40 mg IVP Q8 [facility] Last Admin: 07/28/16 05:47 Dose: 40 mg Metoprolol Tartrate (Lopressor) 25 mg PO DAILY [facility] Rosuvastatin Calcium (Crestor) 10 mg PO HS [facility] Last Admin: 07/27/16 21:28 Dose: 10 mg Tiotropium [place] (Spiriva) 18 mcg INH RQ24 [facility] Vitamin B Complex/Vit C/Folic Acid (Nephro-Anny) 1 tab PO DAILY [facility] Physical Exam - Constitutional Appears: No Acute Distress - Head Exam Head Exam: ATRAUMATIC, NORMOCEPHALIC - Eye Exam Eye Exam: EOMI, PERRL - Neck Exam Neck exam: Negative for: Lymphadenopathy, Thyromegaly - Respiratory Exam Respiratory Exam: NORMAL BREATHING PATTERN. absent: Rales, Rhonchi, Wheezes - Cardiovascular Exam Cardiovascular Exam: REGULAR RHYTHM, +S1, +S2. absent: Gallop, Rubs, Systolic Murmur - GI/Abdominal Exam GI & Abdominal Exam: Normal Bowel Sounds, Soft. absent: Mass, Organomegaly, Tenderness - Rectal Exam Rectal Exam: Deferred - Extremities Exam Extremities exam: Negative for: calf tenderness, pedal edema Results - Vital Signs Recent Vital Signs: Last Vital Signs Temp 98 F 07/28/16 06:00 Pulse 87 07/28/16 06:00 Resp 13 07/28/16 06:00 BP 146/71 07/28/16 03:03 Pulse Ox 100 07/28/16 06:00 - Labs Result Diagrams: 07/28/16 06:18 07/28/16 06:18 Labs: Laboratory Results - last 24 hr 07/27/16 07/27/16 07/27/16 11:37 12:23 16:10 WBC RBC Hgb Hct MCV MCH MCHC RDW Plt Count MPV PT INR APTT Sodium Potassium Chloride Carbon Dioxide Anion Gap BUN Creatinine Est GFR ( Amer) Est GFR (Non-Af Amer) POC Glucose (mg/dL) 143 H 355 H Random Glucose Hemoglobin A1c Calcium Phosphorus Iron TIBC % Saturation Ferritin Total Creatine Kinase CK-MB (Mass) Troponin I, Quant Stool Occult Blood Blood Type A POSITIVE Antibody Screen Negative 07/27/16 07/27/16 07/27/16 18:15 20:21 21:11 WBC RBC Hgb 9.3 L Hct 29.5 L MCV MCH MCHC RDW Plt Count MPV PT INR APTT Sodium Potassium Chloride Carbon Dioxide Anion Gap BUN Creatinine Est GFR ( Amer) Est GFR (Non-Af Amer) POC Glucose (mg/dL) 162 H Random Glucose Hemoglobin A1c 7.8 H Calcium Phosphorus Iron 103 TIBC 278 % Saturation 37 Ferritin Total Creatine Kinase 217 H CK-MB (Mass) 2.66 Troponin I, Quant 0.0190 Stool Occult Blood Positive H Blood Type Antibody Screen 07/28/16 07/28/16 06:18 07:39 WBC 9.2 RBC 4.63 Hgb 9.4 L Hct 29.6 L MCV 63.8 L D MCH 20.2 L MCHC 31.7 L RDW 20.0 H Plt Count 198 MPV 9.6 PT 12.5 H INR 1.1 APTT 38 H Sodium 135 Potassium 4.3 Chloride 96 L Carbon Dioxide 18 L Anion Gap 25 H BUN 64 H Creatinine 2.8 H Est GFR ( Amer) 26 Est GFR (Non-Af Amer) 22 POC Glucose (mg/dL) 212 H Random Glucose 212 H Hemoglobin A1c Calcium 8.7 Phosphorus 5.4 H Iron TIBC % Saturation Ferritin 279.0 Total Creatine Kinase CK-MB (Mass) Troponin I, Quant Stool Occult Blood Blood Type Antibody Screen Assessment & Plan (1) Anemia Assessment and Plan: Patient was admitted with acute shortness of breath, exacerbation of CHF. He has been treated with aspirin, plavix and lovenox. There has been a documented drop in hemoglobin from 9.5 to 7.9, with positive stool occult blood. Patient should have EGD and colonoscopy when stable and cleared by cardiology. Status: Acute
[2016-07-28] MEDS: (Novolog) Insulin Aspart, Recombinant 100 u/ml 10 ml vial SC SCH ×4 (08:26→16:32)
--- NOTE | 2016-07-28 08:28 | CP.PCM.PN ---
Subjective - Date & Time of Evaluation Date of Evaluation: 07/28/16 Time of Evaluation: 08:15 - Subjective Subjective: Patient seen and examined. Lying comfortably in no acute distress Breathing much improved Afebrile Denies any chest pain For endoscopy today Status post transfusion of 1 unit packed RBCs Objective - Vital Signs/Intake and Output Vital Signs (last 24 hours): Temp Pulse Resp BP Pulse Ox 98 F 87 13 146/71 100 07/28/16 06:00 07/28/16 06:00 07/28/16 06:00 07/28/16 03:03 07/28/16 06:00 Intake and Output: 07/28/16 07/28/16 06:59 18:59 Intake Total 200 Output Total 900 Balance -700 - Medications Medications: Current Medications Albuterol (Ventolin Hfa 90 Mcg/Actuation (8 G)) 2 puff IH RQ4 PRN PRN Reason: Wheezing Albuterol/Ipratropium (Duoneb 3 Mg/0.5 Mg (3 Ml) Ud) 3 ml INH RQ6 [facility] Last Admin: 07/28/16 01:18 Dose: Not Given Amlodipine Besylate (Norvasc) 10 mg PO DAILY [facility] Last Admin: 07/27/16 12:26 Dose: 10 mg Aspirin (Ecotrin) 81 mg PO DAILY [facility] Last Admin: 07/27/16 09:34 Dose: 81 mg Azithromycin (Zithromax) 250 mg PO DAILY [facility] Stop: 07/31/16 10:01 Clopidogrel Bisulfate (Plavix) 75 mg PO DAILY [facility] Last Admin: 07/27/16 09:34 Dose: 75 mg Enoxaparin Sodium (Lovenox) 30 mg SC DAILY [facility] Last Admin: 07/27/16 09:34 Dose: 30 mg Famotidine (Pepcid) 20 mg PO DAILY [facility] Furosemide (Lasix) 20 mg IVP BID [facility] Last Admin: 07/27/16 18:09 Dose: 20 mg Glimepiride (Amaryl) 2 mg PO TID [facility] Last Admin: 07/27/16 18:09 Dose: 2 mg Hydralazine HCl (Apresoline) 50 mg PO TID [facility] Last Admin: 07/27/16 18:09 Dose: 50 mg Hydrochlorothiazide (Hydrodiuril) 25 mg PO DAILY [facility] Last Admin: 07/27/16 11:20 Dose: 25 mg Ceftriaxone Sodium 1 gm/ (Sodium Chloride) 100 mls @ 100 mls/hr IVPB Q24H [facility] Last Admin: 07/27/16 12:58 Dose: 100 mls/hr Insulin Aspart (Novolog) 0 unit SC TIDAC [facility] PRN Reason: Protocol Last Admin: 07/27/16 16:52 Dose: 10 unit Losartan Potassium (Cozaar) 100 mg PO DAILY [facility] Last Admin: 07/27/16 11:12 Dose: 100 mg Methylprednisolone (Solu-Medrol) 40 mg IVP Q8 [facility] Last Admin: 07/28/16 05:47 Dose: 40 mg Metoprolol Tartrate (Lopressor) 25 mg PO DAILY [facility] Rosuvastatin Calcium (Crestor) 10 mg PO HS [facility] Last Admin: 07/27/16 21:28 Dose: 10 mg Tiotropium [place] (Spiriva) 18 mcg INH RQ24 [facility] Vitamin B Complex/Vit C/Folic Acid (Nephro-Anny) 1 tab PO DAILY [facility] - Labs Labs: 07/28/16 06:18 07/28/16 06:18 PT 12.5 SECONDS (9.7-12.2) H 07/28/16 06:18 INR 1.1 07/28/16 06:18 APTT 38 SECONDS (21-34) H 07/28/16 06:18 - Head Exam Head Exam: ATRAUMATIC, NORMOCEPHALIC - Eye Exam Eye Exam: Normal appearance - ENT Exam ENT Exam: Mucous Membranes Moist - Neck Exam Neck Exam: Normal Inspection - Respiratory Exam Respiratory Exam: Clear to Ausculation Bilateral - Cardiovascular Exam Cardiovascular Exam: REGULAR RHYTHM - GI/Abdominal Exam GI & Abdominal Exam: Soft, Normal Bowel Sounds Assessment and Plan (1) SOB (shortness of breath) Assessment & Plan: Secondary to COPD and anemia Status post transfusion of 1 unit packed RBCs For EGD today Taper steroids and continue nebulizer treatment Status: Acute
[2016-07-28] MEDS: Tiotropium 18 mcg Cap For Inhalation INH SCH (09:12)
--- NOTE | 2016-07-28 10:24 | CP.PCM.PN ---
Subjective - Date & Time of Evaluation Date of Evaluation: 07/28/16 Time of Evaluation: 10:24 - Subjective Subjective: pt seen and examined, follow up consult is dictated #[id number] consider to taper off steroids with increasing bun check pth intact Objective - Vital Signs/Intake and Output Vital Signs (last 24 hours): Temp Pulse Resp BP Pulse Ox 98 F 87 13 146/71 100 07/28/16 06:00 07/28/16 06:00 07/28/16 06:00 07/28/16 03:03 07/28/16 06:00 Intake and Output: 07/28/16 07/28/16 06:59 18:59 Intake Total 200 Output Total 900 Balance -700 - Medications Medications: Current Medications Albuterol (Ventolin Hfa 90 Mcg/Actuation (8 G)) 2 puff IH RQ4 PRN PRN Reason: Wheezing Albuterol/Ipratropium (Duoneb 3 Mg/0.5 Mg (3 Ml) Ud) 3 ml INH RQ6 [facility] Last Admin: 07/28/16 08:48 Dose: 3 ml Amlodipine Besylate (Norvasc) 10 mg PO DAILY [facility] Last Admin: 07/27/16 12:26 Dose: 10 mg Aspirin (Ecotrin) 81 mg PO DAILY [facility] Last Admin: 07/27/16 09:34 Dose: 81 mg Azithromycin (Zithromax) 250 mg PO DAILY [facility] Stop: 07/31/16 10:01 Clopidogrel Bisulfate (Plavix) 75 mg PO DAILY [facility] Last Admin: 07/27/16 09:34 Dose: 75 mg Enoxaparin Sodium (Lovenox) 30 mg SC DAILY [facility] Last Admin: 07/27/16 09:34 Dose: 30 mg Famotidine (Pepcid) 20 mg PO DAILY [facility] Furosemide (Lasix) 20 mg IVP DAILY [facility] Glimepiride (Amaryl) 2 mg PO TID [facility] Last Admin: 07/27/16 18:09 Dose: 2 mg Hydralazine HCl (Apresoline) 50 mg PO TID [facility] Last Admin: 07/27/16 18:09 Dose: 50 mg Hydrochlorothiazide (Hydrodiuril) 25 mg PO DAILY [facility] Last Admin: 07/27/16 11:20 Dose: 25 mg Ceftriaxone Sodium 1 gm/ (Sodium Chloride) 100 mls @ 100 mls/hr IVPB Q24H [facility] Last Admin: 07/27/16 12:58 Dose: 100 mls/hr Insulin Aspart (Novolog) 0 unit SC TIDAC [facility] PRN Reason: Protocol Last Admin: 07/28/16 08:28 Dose: 4 unit Losartan Potassium (Cozaar) 100 mg PO DAILY [facility] Last Admin: 07/27/16 11:12 Dose: 100 mg Methylprednisolone (Solu-Medrol) 40 mg IVP Q8 [facility] Last Admin: 07/28/16 05:47 Dose: 40 mg Metoprolol Tartrate (Lopressor) 25 mg PO DAILY [facility] Rosuvastatin Calcium (Crestor) 10 mg PO HS [facility] Last Admin: 07/27/16 21:28 Dose: 10 mg Tiotropium [place] (Spiriva) 18 mcg INH RQ24 [facility] Last Admin: 07/28/16 09:12 Dose: 18 mcg Vitamin B Complex/Vit C/Folic Acid (Nephro-Anny) 1 tab PO DAILY [facility] - Labs Labs: 07/28/16 06:18 07/28/16 06:18 PT 12.5 SECONDS (9.7-12.2) H 07/28/16 06:18 INR 1.1 07/28/16 06:18 APTT 38 SECONDS (21-34) H 07/28/16 06:18
[2016-07-28] MEDS: Multivitamin Vitamin B Complex (Nephro-Vite) Tab PO SCH (10:26)
[2016-07-28 10:40] LABS: FOLATE > 20.0 ng/mL
--- NOTE | 2016-07-28 12:07 | CP.PCM.PN ---
Subjective - Date & Time of Evaluation Date of Evaluation: 07/28/16 Time of Evaluation: 11:00 - Subjective Subjective: patient seen- in ICU bed, was seen by renal and Gastro patient had 1 unit PRBC with no complication- has schedule for EGD off blood thinners temporarily Objective - Vital Signs/Intake and Output Vital Signs (last 24 hours): Temp Pulse Resp BP Pulse Ox 98 F 87 13 168/71 H 100 07/28/16 06:00 07/28/16 06:00 07/28/16 06:00 07/28/16 10:26 07/28/16 06:00 Intake and Output: 07/28/16 07/28/16 06:59 18:59 Intake Total 200 Output Total 900 Balance -700 - Medications Medications: Current Medications Albuterol (Ventolin Hfa 90 Mcg/Actuation (8 G)) 2 puff IH RQ4 PRN PRN Reason: Wheezing Albuterol/Ipratropium (Duoneb 3 Mg/0.5 Mg (3 Ml) Ud) 3 ml INH RQ6 [facility] Last Admin: 07/28/16 08:48 Dose: 3 ml Amlodipine Besylate (Norvasc) 10 mg PO DAILY [facility] Last Admin: 07/28/16 10:26 Dose: 10 mg Aspirin (Ecotrin) 81 mg PO DAILY [facility] Last Admin: 07/27/16 09:34 Dose: 81 mg Azithromycin (Zithromax) 250 mg PO DAILY [facility] Stop: 07/31/16 10:01 Last Admin: 07/28/16 10:27 Dose: 250 mg Clopidogrel Bisulfate (Plavix) 75 mg PO DAILY [facility] Last Admin: 07/27/16 09:34 Dose: 75 mg Enoxaparin Sodium (Lovenox) 30 mg SC DAILY [facility] Last Admin: 07/27/16 09:34 Dose: 30 mg Famotidine (Pepcid) 20 mg PO DAILY [facility] Last Admin: 07/28/16 10:26 Dose: 20 mg Furosemide (Lasix) 20 mg IVP DAILY [facility] Last Admin: 07/28/16 10:25 Dose: 20 mg Glimepiride (Amaryl) 2 mg PO TID [facility] Last Admin: 07/28/16 10:24 Dose: 2 mg Hydralazine HCl (Apresoline) 50 mg PO TID [facility] Last Admin: 07/28/16 10:24 Dose: 50 mg Hydrochlorothiazide (Hydrodiuril) 25 mg PO DAILY [facility] Last Admin: 07/28/16 10:25 Dose: 25 mg Ceftriaxone Sodium 1 gm/ (Sodium Chloride) 100 mls @ 100 mls/hr IVPB Q24H [facility] Last Admin: 07/28/16 10:43 Dose: 100 mls/hr Insulin Aspart (Novolog) 0 unit SC TIDAC [facility] PRN Reason: Protocol Last Admin: 07/28/16 11:50 Dose: 12 unit Losartan Potassium (Cozaar) 100 mg PO DAILY [facility] Last Admin: 07/28/16 10:25 Dose: 100 mg Methylprednisolone (Solu-Medrol) 40 mg IVP Q8 [facility] Last Admin: 07/28/16 05:47 Dose: 40 mg Metoprolol Tartrate (Lopressor) 25 mg PO DAILY [facility] Last Admin: 07/28/16 10:26 Dose: 25 mg Rosuvastatin Calcium (Crestor) 10 mg PO HS [facility] Last Admin: 07/27/16 21:28 Dose: 10 mg Tiotropium [place] (Spiriva) 18 mcg INH RQ24 [facility] Last Admin: 07/28/16 09:12 Dose: 18 mcg Vitamin B Complex/Vit C/Folic Acid (Nephro-Anny) 1 tab PO DAILY [facility] Last Admin: 07/28/16 10:26 Dose: 1 tab - Labs Labs: 07/28/16 06:18 07/28/16 06:18 PT 12.5 SECONDS (9.7-12.2) H 07/28/16 06:18 INR 1.1 07/28/16 06:18 APTT 38 SECONDS (21-34) H 07/28/16 06:18 - Constitutional Appears: Well, Non-toxic - Head Exam Head Exam: ATRAUMATIC, NORMOCEPHALIC - Eye Exam Eye Exam: Normal appearance - ENT Exam ENT Exam: Mucous Membranes Moist - Neck Exam Neck Exam: Full ROM. absent: Tenderness - Respiratory Exam Respiratory Exam: Clear to Ausculation Bilateral, NORMAL BREATHING PATTERN. absent: Wheezes (cleared) - Cardiovascular Exam Cardiovascular Exam: REGULAR RHYTHM - GI/Abdominal Exam GI & Abdominal Exam: Soft, Normal Bowel Sounds. absent: Tenderness - Extremities Exam Extremities Exam: Full ROM. absent: Pedal Edema - Back Exam Back Exam: Full ROM. absent: tenderness - Neurological Exam Neurological Exam: Alert, Awake, Normal Gait, Oriented x3 - Psychiatric Exam Psychiatric exam: Normal Affect, Normal Mood - Skin Skin Exam: Intact, Normal Color Assessment and Plan - Assessment and Plan (Free Text) Assessment: Patient admitted for Shortness of breath due to multiple factors Diastolic CHF- in exacerbation- due to non compliance - patient educated, meds adjusted cardio on case Severe Anemia- post PRBC with positive FOB- was seen by gastro -0 scheduled for endoscopy- off blood thinners temporarily, discussed with cardio. patient and family aware , risk discussed Hyponatremia- improved no seizure CRI- eval- Renal on case Copd exacerbation- o antibiotic, respiratory treatment steroid Diabets type 2, with recent elevation of sugar- on steroid, will follow sliding scale for now, will taper steroid , cannot start IVF-due to CHF Hypertension- monitopr adjust meds
--- NOTE | 2016-07-28 14:14 | CP.PCM.PN ---
Objective - Vital Signs/Intake and Output Vital Signs (last 24 hours): Temp Pulse Resp BP Pulse Ox 98 F 100 H 18 168/71 H 99 07/28/16 06:00 07/28/16 10:00 07/28/16 10:00 07/28/16 10:26 07/28/16 10:00 Intake and Output: 07/28/16 07/28/16 06:59 18:59 Intake Total 200 Output Total 900 Balance -700 - Medications Medications: Current Medications Albuterol (Ventolin Hfa 90 Mcg/Actuation (8 G)) 2 puff IH RQ4 PRN PRN Reason: Wheezing Albuterol/Ipratropium (Duoneb 3 Mg/0.5 Mg (3 Ml) Ud) 3 ml INH RQ6 [facility] Last Admin: 07/28/16 08:48 Dose: 3 ml Amlodipine Besylate (Norvasc) 10 mg PO DAILY [facility] Last Admin: 07/28/16 10:26 Dose: 10 mg Aspirin (Ecotrin) 81 mg PO DAILY [facility] Last Admin: 07/27/16 09:34 Dose: 81 mg Azithromycin (Zithromax) 250 mg PO DAILY [facility] Stop: 07/31/16 10:01 Last Admin: 07/28/16 10:27 Dose: 250 mg Clopidogrel Bisulfate (Plavix) 75 mg PO DAILY [facility] Last Admin: 07/27/16 09:34 Dose: 75 mg Enoxaparin Sodium (Lovenox) 30 mg SC DAILY [facility] Last Admin: 07/27/16 09:34 Dose: 30 mg Famotidine (Pepcid) 20 mg PO DAILY [facility] Last Admin: 07/28/16 10:26 Dose: 20 mg Furosemide (Lasix) 20 mg IVP DAILY [facility] Last Admin: 07/28/16 10:25 Dose: 20 mg Glimepiride (Amaryl) 2 mg PO TID [facility] Last Admin: 07/28/16 10:24 Dose: 2 mg Hydralazine HCl (Apresoline) 100 mg PO TID [facility] Hydrochlorothiazide (Hydrodiuril) 25 mg PO DAILY [facility] Last Admin: 07/28/16 10:25 Dose: 25 mg Ceftriaxone Sodium 1 gm/ (Sodium Chloride) 100 mls @ 100 mls/hr IVPB Q24H [facility] Last Admin: 07/28/16 10:43 Dose: 100 mls/hr Insulin Aspart (Novolog) 0 unit SC TIDAC [facility] PRN Reason: Protocol Last Admin: 07/28/16 11:50 Dose: 12 unit Losartan Potassium (Cozaar) 100 mg PO DAILY [facility] Last Admin: 07/28/16 10:25 Dose: 100 mg Methylprednisolone (Solu-Medrol) 40 mg IVP Q8 [facility] Last Admin: 07/28/16 05:47 Dose: 40 mg Metoprolol Tartrate (Lopressor) 25 mg PO DAILY [facility] Last Admin: 07/28/16 10:26 Dose: 25 mg Rosuvastatin Calcium (Crestor) 10 mg PO HS [facility] Last Admin: 07/27/16 21:28 Dose: 10 mg Tiotropium [place] (Spiriva) 18 mcg INH RQ24 [facility] Last Admin: 07/28/16 09:12 Dose: 18 mcg Vitamin B Complex/Vit C/Folic Acid (Nephro-Anny) 1 tab PO DAILY [facility] Last Admin: 07/28/16 10:26 Dose: 1 tab - Labs Labs: 07/28/16 06:18 07/28/16 06:18 PT 12.5 SECONDS (9.7-12.2) H 07/28/16 06:18 INR 1.1 07/28/16 06:18 APTT 38 SECONDS (21-34) H 07/28/16 06:18
--- NOTE | 2016-07-28 21:31 | CP.PCM.PN ---
Subjective - Date & Time of Evaluation Date of Evaluation: 07/28/16 Time of Evaluation: 17:00 - Subjective Subjective: Patient seen and evaluated Comfortable. Denies chest pain and dyspnea For GI work up on Sunday. Guiac positive stools Antiplatelets held Objective - Vital Signs/Intake and Output Vital Signs (last 24 hours): Temp Pulse Resp BP Pulse Ox 97.3 F L 82 17 136/52 L 96 07/28/16 18:00 07/28/16 20:02 07/28/16 20:02 07/28/16 20:02 07/28/16 20:02 Intake and Output: 07/28/16 07/29/16 18:59 06:59 Intake Total 1000 Output Total 870 Balance 130 - Medications Medications: Current Medications Albuterol (Ventolin Hfa 90 Mcg/Actuation (8 G)) 2 puff IH RQ4 PRN PRN Reason: Wheezing Albuterol/Ipratropium (Duoneb 3 Mg/0.5 Mg (3 Ml) Ud) 3 ml INH RQ6 [facility] Last Admin: 07/28/16 19:16 Dose: 3 ml Amlodipine Besylate (Norvasc) 10 mg PO DAILY [facility] Last Admin: 07/28/16 10:26 Dose: 10 mg Aspirin (Ecotrin) 81 mg PO DAILY [facility] Last Admin: 07/27/16 09:34 Dose: 81 mg Azithromycin (Zithromax) 250 mg PO DAILY [facility] Stop: 07/31/16 10:01 Last Admin: 07/28/16 10:27 Dose: 250 mg Clopidogrel Bisulfate (Plavix) 75 mg PO DAILY [facility] Last Admin: 07/27/16 09:34 Dose: 75 mg Enoxaparin Sodium (Lovenox) 30 mg SC DAILY [facility] Last Admin: 07/27/16 09:34 Dose: 30 mg Famotidine (Pepcid) 20 mg PO DAILY [facility] Last Admin: 07/28/16 10:26 Dose: 20 mg Furosemide (Lasix) 20 mg IVP DAILY [facility] Last Admin: 07/28/16 10:25 Dose: 20 mg Glimepiride (Amaryl) 2 mg PO TID [facility] Last Admin: 07/28/16 18:03 Dose: 2 mg Hydralazine HCl (Apresoline) 100 mg PO TID [facility] Last Admin: 07/28/16 18:29 Dose: 100 mg Hydrochlorothiazide (Hydrodiuril) 25 mg PO DAILY [facility] Last Admin: 07/28/16 10:25 Dose: 25 mg Ceftriaxone Sodium 1 gm/ (Sodium Chloride) 100 mls @ 100 mls/hr IVPB Q24H [facility] Last Admin: 07/28/16 10:43 Dose: 100 mls/hr Insulin Aspart (Novolog) 0 unit SC TIDAC [facility] PRN Reason: Protocol Last Admin: 07/28/16 16:32 Dose: Not Given Losartan Potassium (Cozaar) 100 mg PO DAILY [facility] Last Admin: 07/28/16 10:25 Dose: 100 mg Methylprednisolone (Solu-Medrol) 40 mg IVP Q8 [facility] Last Admin: 07/28/16 21:14 Dose: 40 mg Metoprolol Tartrate (Lopressor) 25 mg PO DAILY [facility] Last Admin: 07/28/16 10:26 Dose: 25 mg Rosuvastatin Calcium (Crestor) 10 mg PO HS [facility] Last Admin: 07/28/16 21:15 Dose: 10 mg Tiotropium [place] (Spiriva) 18 mcg INH RQ24 [facility] Last Admin: 07/28/16 09:12 Dose: 18 mcg Vitamin B Complex/Vit C/Folic Acid (Nephro-Anny) 1 tab PO DAILY [facility] Last Admin: 07/28/16 10:26 Dose: 1 tab - Labs Labs: 07/28/16 06:18 07/28/16 06:18 PT 12.5 SECONDS (9.7-12.2) H 07/28/16 06:18 INR 1.1 07/28/16 06:18 APTT 38 SECONDS (21-34) H 07/28/16 06:18
[2016-07-29] MEDS: Albuterol-Ipratrop 3 mg / 0.5 (3 ml) UD INH SCH ×4 (01:05→19:11)
--- NOTE | 2016-07-29 02:31 | PN ---
DATE: 07/28/2016 The patient is located in ICU, bed 18. REQUESTED BY: Dr. Ana Noel. REASON FOR FOLLOWUP: Chronic kidney disease. HISTORY OF PRESENT ILLNESS: The patient is an 81-year-old elderly Armenian male with a history of lo ngstanding hypertension, diabetes, CHF, coronary artery disease and is status post cardiac catheteriz ation and status post stent placement in 05/2016, was admitted with shortness of breath after moving his bowels in the house, sudden onset, and and decided to come to the hospital and the patient was found to be anemic also. The patient is not in acute distress, status post transfusion. Stool f or occult blood is positive. Denies any chest pain, palpitation. Denies any fever, cough, no abdomi nal pain, no nausea, vomiting, diarrhea. PHYSICAL EXAMINATION: VITAL SIGNS: This morning as follows: Blood pressure 168/71, pulse 100, respiration 18, saturation 99%, and temperature is 98. GENERAL: The patient is an 81-year-old elderly male, very pleasant, moderately built, moderately nou rished, not in acute distress. HEENT: Pupils normal, reactive to light and accommodation. Conjunctivae pink. Sclerae anicteric. Tongue is moist. NECK: Trachea is midline. LUNGS: Symmetric on both sides. Bilateral breath sounds present. Clear on auscultation. CARDIOVASCULAR: [place] in the fifth intercostal space midclavicular line. S1 and S2 audible. No murm ur or gallop. ABDOMEN: Normal in appearance, soft, tympanic. No guarding, no rigidity. No hepatosplenomegaly. CENTRAL NERVOUS SYSTEM: The patient is alert, awake, and oriented x 3. Nonfocal on examination. Cr anial nerves II through XII grossly intact. Sensory and motor system is within normal limits. EXTREMITIES: No cyanosis, no clubbing, no edema. CURRENT MEDICATIONS: Include as follows: Hydralazine 100 mg p.o. t.i.d., losartan 100 mg daily, Cre stor 10 mg at bedtime, DuoNeb inhaler 3 mL every 6 hours, aspirin 81 mg daily, on hold, and hydrochlo rothiazide 25 mg daily, Lasix 20 mg IV daily and metoprolol 25 mg daily. Lovenox is on hold and B co mplex 1 tablet daily and amlodipine 10 mg daily and famotidine 20 mg p.o. daily. Plavix on hold and Rocephin 1 gram daily and methylprednisolone 40 mg IV every 8 hours, Spiriva 18 mcg inhaler every 24 hours and azithromycin 500 mg IV piggyback daily and glimepiride 2 mg p.o. t.i.d. LABORATORY DATA: Include as follows: As of 07/28/2016, WBC 9.8, hemoglobin 9.4, hematocrit is 29.6, platelet 198. PT 12.5, INR is 1.1, PTT 38. Sodium 135, potassium 4.3, chloride 96, CO2 18, BUN 64, creatinine 2.8, glucose 212, calcium 8.7, phosphorus is 5.4. As of 07/27/2016, iron is 103, TIBC 27 8 and saturation is 37, ferritin level as of 07/28/2016 is 279 and B12 is more than 1000 an folic aci d is more than 20 and stool for occult blood is positive as of 07/27/2016 and hemoglobin A1c is 7.8. 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 1. 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 2. Anemia secondary to chronic kidney disease and cannot rule out a slow gastrointestinal bleed with positive stool for occult blood. 3. Coronary artery disease. 4. Hypertension. Blood pressure is stable. Continue his current medication. 5. Hyperphosphatemia, we will check PTH intact level to rule out secondary hyperparathyroidism. 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 Will follow with you. Thank you for allowing me to participate in your patient's care. Case discussed with Dr. Noel in [place] this morning. Aamir Galeano MD cc: [id number] TT: 07/29/2016 02:30:55 Confirmation # [id number] Dictation # [id number] mn
[2016-07-29] MEDS: MethylPREDNISolone 40 mg Vial IVP SCH ×3 (05:13→18:48)
[2016-07-29 07:38] LABS: HEMATOCRIT 29.1 % (38.5-50.0)
[2016-07-29] MEDS: (Novolog) Insulin Aspart, Recombinant 100 u/ml 10 ml vial SC SCH ×3 (08:00→16:30)
[2016-07-29] MEDS: Tiotropium 18 mcg Cap For Inhalation INH SCH (08:40)
[2016-07-29] MEDS: Enoxaparin 30 mg Syringe SC SCH (09:34)
[2016-07-29] MEDS: Multivitamin Vitamin B Complex (Nephro-Vite) Tab PO SCH (09:35)
--- NOTE | 2016-07-29 12:58 | CP.PCM.PN ---
Subjective - Date & Time of Evaluation Date of Evaluation: 07/29/16 Time of Evaluation: 12:58 - Subjective Subjective: COVERING DR ROBERTS Cleared by Cardiology per Dr Muñiz note No pain or bleeding Repeat CBC not seen Patient agreeable to EGD and Colonoscopy Sunday as he has been off anti- platelet Rx which will need to be resumed Objective - Vital Signs/Intake and Output Vital Signs (last 24 hours): Temp Pulse Resp BP Pulse Ox 98.0 F 86 20 140/72 96 07/29/16 08:25 07/29/16 08:25 07/29/16 08:25 07/29/16 09:35 07/28/16 23:40 Intake and Output: 07/29/16 07/29/16 06:59 18:59 Intake Total 290 Output Total 900 Balance -610 - Medications Medications: Current Medications Albuterol (Ventolin Hfa 90 Mcg/Actuation (8 G)) 2 puff IH RQ4 PRN PRN Reason: Wheezing Albuterol/Ipratropium (Duoneb 3 Mg/0.5 Mg (3 Ml) Ud) 3 ml INH RQ6 [facility] Last Admin: 07/29/16 08:40 Dose: Not Given Amlodipine Besylate (Norvasc) 10 mg PO DAILY [facility] Last Admin: 07/29/16 09:35 Dose: 10 mg Aspirin (Ecotrin) 81 mg PO DAILY [facility] Last Admin: 07/27/16 09:34 Dose: 81 mg Azithromycin (Zithromax) 250 mg PO DAILY [facility] Stop: 07/31/16 10:01 Last Admin: 07/29/16 09:35 Dose: 250 mg Clopidogrel Bisulfate (Plavix) 75 mg PO DAILY [facility] Last Admin: 07/27/16 09:34 Dose: 75 mg Enoxaparin Sodium (Lovenox) 30 mg SC DAILY [facility] Last Admin: 07/29/16 09:34 Dose: 30 mg Famotidine (Pepcid) 20 mg PO DAILY [facility] Last Admin: 07/29/16 09:35 Dose: 20 mg Furosemide (Lasix) 20 mg IVP DAILY [facility] Last Admin: 07/29/16 09:35 Dose: 20 mg Glimepiride (Amaryl) 2 mg PO TID [facility] Last Admin: 07/29/16 09:35 Dose: 2 mg Hydralazine HCl (Apresoline) 100 mg PO TID [facility] Last Admin: 07/29/16 09:46 Dose: 100 mg Hydrochlorothiazide (Hydrodiuril) 25 mg PO DAILY [facility] Last Admin: 07/29/16 09:34 Dose: 25 mg Ceftriaxone Sodium 1 gm/ (Sodium Chloride) 100 mls @ 100 mls/hr IVPB Q24H [facility] Last Admin: 07/29/16 11:02 Dose: 100 mls/hr Insulin Aspart (Novolog) 0 unit SC TIDAC [facility] PRN Reason: Protocol Last Admin: 07/29/16 08:00 Dose: 6 unit Losartan Potassium (Cozaar) 100 mg PO DAILY [facility] Last Admin: 07/29/16 09:34 Dose: 100 mg Methylprednisolone (Solu-Medrol) 40 mg IVP Q8 [facility] Last Admin: 07/29/16 05:13 Dose: 40 mg Metoprolol Tartrate (Lopressor) 25 mg PO DAILY [facility] Last Admin: 07/29/16 09:35 Dose: 25 mg Rosuvastatin Calcium (Crestor) 10 mg PO HS [facility] Last Admin: 07/28/16 21:15 Dose: 10 mg Tiotropium [place] (Spiriva) 18 mcg INH RQ24 [facility] Last Admin: 07/29/16 08:40 Dose: Not Given Vitamin B Complex/Vit C/Folic Acid (Nephro-Anny) 1 tab PO DAILY [facility] Last Admin: 07/29/16 09:35 Dose: 1 tab - Labs Labs: 07/28/16 06:18 07/29/16 06:30 PT 12.5 SECONDS (9.7-12.2) H 07/28/16 06:18 INR 1.1 07/28/16 06:18 APTT 38 SECONDS (21-34) H 07/28/16 06:18 - Constitutional Appears: No Acute Distress - Head Exam Head Exam: ATRAUMATIC, NORMOCEPHALIC - Eye Exam Eye Exam: EOMI, PERRL - Respiratory Exam Respiratory Exam: NORMAL BREATHING PATTERN - Cardiovascular Exam Cardiovascular Exam: REGULAR RHYTHM, +S1 - GI/Abdominal Exam GI & Abdominal Exam: Soft, Normal Bowel Sounds. absent: Guarding, Rigid, Tenderness, Mass, Organomegaly - Extremities Exam Extremities Exam: Normal Inspection Assessment and Plan (1) CHF exacerbation Assessment & Plan: Appears cleared by Cardio for GI workup on sunday Status: Acute (2) Coronary arteriosclerosis Assessment & Plan: antiplatelet meds on hold for GI work up. Status: Chronic (3) Iron deficiency anemia due to chronic blood loss Assessment & Plan: No further bleeding and tolerating his diet Discussed benefit of having both EGD and Colon performed on sunday as meds are currently held. Will need to resume anti-platelet drugs when clinically stable and work up is completed Prep order written for split dose prep. Status: Acute
--- NOTE | 2016-07-29 15:45 | CP.PCM.PN ---
Subjective - Date & Time of Evaluation Date of Evaluation: 07/29/16 Time of Evaluation: 03:00 - Subjective Subjective: Patient seen- was transferred to floor, ambulatory, no complaints- no episode of bleeding but reports stool was black when he was on iron patient was seen by Gastro and has schedule upper and lower endoscopy on sunday dpatient is aware that he is off blood thinner breathing is better Objective - Vital Signs/Intake and Output Vital Signs (last 24 hours): Temp Pulse Resp BP Pulse Ox 98.0 F 78 20 140/72 96 07/29/16 08:25 07/29/16 15:00 07/29/16 08:25 07/29/16 09:35 07/28/16 23:40 Intake and Output: 07/29/16 07/29/16 06:59 18:59 Intake Total 290 600 Output Total 900 Balance -610 600 - Medications Medications: Current Medications Albuterol (Ventolin Hfa 90 Mcg/Actuation (8 G)) 2 puff IH RQ4 PRN PRN Reason: Wheezing Albuterol/Ipratropium (Duoneb 3 Mg/0.5 Mg (3 Ml) Ud) 3 ml INH RQ6 [facility] Last Admin: 07/29/16 14:03 Dose: Not Given Amlodipine Besylate (Norvasc) 10 mg PO DAILY [facility] Last Admin: 07/29/16 09:35 Dose: 10 mg Aspirin (Ecotrin) 81 mg PO DAILY [facility] Last Admin: 07/27/16 09:34 Dose: 81 mg Azithromycin (Zithromax) 250 mg PO DAILY [facility] Stop: 07/31/16 10:01 Last Admin: 07/29/16 09:35 Dose: 250 mg Bisacodyl (Dulcolax) 10 mg PO ONCE ONE Stop: 07/29/16 17:01 Clopidogrel Bisulfate (Plavix) 75 mg PO DAILY [facility] Last Admin: 07/27/16 09:34 Dose: 75 mg Enoxaparin Sodium (Lovenox) 30 mg SC DAILY [facility] Last Admin: 07/29/16 09:34 Dose: 30 mg Famotidine (Pepcid) 20 mg PO DAILY [facility] Last Admin: 07/29/16 09:35 Dose: 20 mg Furosemide (Lasix) 20 mg IVP DAILY [facility] Last Admin: 07/29/16 09:35 Dose: 20 mg Glimepiride (Amaryl) 2 mg PO TID [facility] Last Admin: 07/29/16 13:10 Dose: 2 mg Hydralazine HCl (Apresoline) 100 mg PO TID [facility] Last Admin: 07/29/16 13:10 Dose: 100 mg Hydrochlorothiazide (Hydrodiuril) 25 mg PO DAILY [facility] Last Admin: 07/29/16 09:34 Dose: 25 mg Ceftriaxone Sodium 1 gm/ (Sodium Chloride) 100 mls @ 100 mls/hr IVPB Q24H [facility] Last Admin: 07/29/16 11:02 Dose: 100 mls/hr Insulin Aspart (Novolog) 0 unit SC TIDAC [facility] PRN Reason: Protocol Last Admin: 07/29/16 12:00 Dose: 12 unit Losartan Potassium (Cozaar) 100 mg PO DAILY [facility] Last Admin: 07/29/16 09:34 Dose: 100 mg Methylprednisolone (Solu-Medrol) 40 mg IVP Q8 [facility] Last Admin: 07/29/16 13:10 Dose: 40 mg Metoprolol Tartrate (Lopressor) 25 mg PO DAILY [facility] Last Admin: 07/29/16 09:35 Dose: 25 mg Polyethylene Glycol/Electrolytes (Golytely) 2,000 ml PO ONCE ONE Stop: 07/29/16 18:01 Polyethylene Glycol/Electrolytes (Golytely) 2,000 ml PO ONCE ONE Stop: 07/30/16 06:01 Rosuvastatin Calcium (Crestor) 10 mg PO HS [facility] Last Admin: 07/28/16 21:15 Dose: 10 mg Tiotropium [place] (Spiriva) 18 mcg INH RQ24 [facility] Last Admin: 07/29/16 08:40 Dose: Not Given Vitamin B Complex/Vit C/Folic Acid (Nephro-Anny) 1 tab PO DAILY [facility] Last Admin: 07/29/16 09:35 Dose: 1 tab - Labs Labs: 07/28/16 06:18 07/29/16 06:30 PT 12.5 SECONDS (9.7-12.2) H 07/28/16 06:18 INR 1.1 07/28/16 06:18 APTT 38 SECONDS (21-34) H 07/28/16 06:18 - Constitutional Appears: Well, Non-toxic - Head Exam Head Exam: ATRAUMATIC, NORMOCEPHALIC - Eye Exam Eye Exam: Normal appearance Pupil Exam: NORMAL ACCOMODATION - ENT Exam ENT Exam: Mucous Membranes Moist - Neck Exam Neck Exam: Full ROM. absent: Tenderness - Respiratory Exam Respiratory Exam: Clear to Ausculation Bilateral, NORMAL BREATHING PATTERN - Cardiovascular Exam Cardiovascular Exam: REGULAR RHYTHM - GI/Abdominal Exam GI & Abdominal Exam: Soft, Normal Bowel Sounds. absent: Tenderness - Extremities Exam Extremities Exam: Full ROM, Normal Capillary Refill, Normal Inspection - Neurological Exam Neurological Exam: Alert, Awake, Normal Gait, Oriented x3 - Psychiatric Exam Psychiatric exam: Normal Affect, Normal Mood - Skin Skin Exam: Intact, Normal Color Assessment and Plan - Assessment and Plan (Free Text) Assessment: Patient with multiple factors for shortness of breath- CHF- no more ingris breathing is better Anemia- post transfusion hemglobin improved to 9 and no active bleeding for endoscopy sunday COPD - improved with antibiotic and respiratory treatment will continue current meds- scherduled for endoscopy sunday-august resume blood thinners accordingly
[2016-07-29] MEDS ORDERED: Bisacodyl 5mg EC Tab PO ONE (17:00)
--- NOTE | 2016-07-29 17:32 | CP.PCM.PN ---
Subjective - Date & Time of Evaluation Date of Evaluation: 07/29/16 Time of Evaluation: 17:32 - Subjective Subjective: pt seen and examined, follow up consult is dictated #[id number] Objective - Vital Signs/Intake and Output Vital Signs (last 24 hours): Temp Pulse Resp BP Pulse Ox 97.3 F L 71 20 139/61 98 07/29/16 16:14 07/29/16 16:14 07/29/16 16:14 07/29/16 16:14 07/29/16 16:14 Intake and Output: 07/29/16 07/29/16 06:59 18:59 Intake Total 290 600 Output Total 900 Balance -610 600 - Medications Medications: Current Medications Albuterol (Ventolin Hfa 90 Mcg/Actuation (8 G)) 2 puff IH RQ4 PRN PRN Reason: Wheezing Albuterol/Ipratropium (Duoneb 3 Mg/0.5 Mg (3 Ml) Ud) 3 ml INH RQ6 [facility] Last Admin: 07/29/16 14:03 Dose: Not Given Amlodipine Besylate (Norvasc) 10 mg PO DAILY [facility] Last Admin: 07/29/16 09:35 Dose: 10 mg Aspirin (Ecotrin) 81 mg PO DAILY [facility] Last Admin: 07/27/16 09:34 Dose: 81 mg Azithromycin (Zithromax) 250 mg PO DAILY [facility] Stop: 07/31/16 10:01 Last Admin: 07/29/16 09:35 Dose: 250 mg Clopidogrel Bisulfate (Plavix) 75 mg PO DAILY [facility] Last Admin: 07/27/16 09:34 Dose: 75 mg Enoxaparin Sodium (Lovenox) 30 mg SC DAILY [facility] Last Admin: 07/29/16 09:34 Dose: 30 mg Famotidine (Pepcid) 20 mg PO DAILY [facility] Last Admin: 07/29/16 09:35 Dose: 20 mg Furosemide (Lasix) 20 mg IVP DAILY [facility] Last Admin: 07/29/16 09:35 Dose: 20 mg Glimepiride (Amaryl) 2 mg PO TID [facility] Last Admin: 07/29/16 13:10 Dose: 2 mg Hydralazine HCl (Apresoline) 100 mg PO TID [facility] Last Admin: 07/29/16 13:10 Dose: 100 mg Hydrochlorothiazide (Hydrodiuril) 25 mg PO DAILY [facility] Last Admin: 07/29/16 09:34 Dose: 25 mg Ceftriaxone Sodium 1 gm/ (Sodium Chloride) 100 mls @ 100 mls/hr IVPB Q24H [facility] Last Admin: 07/29/16 11:02 Dose: 100 mls/hr Insulin Aspart (Novolog) 0 unit SC TIDAC [facility] PRN Reason: Protocol Last Admin: 07/29/16 12:00 Dose: 12 unit Losartan Potassium (Cozaar) 100 mg PO DAILY [facility] Last Admin: 07/29/16 09:34 Dose: 100 mg Methylprednisolone (Solu-Medrol) 40 mg IVP Q8 [facility] Last Admin: 07/29/16 13:10 Dose: 40 mg Metoprolol Tartrate (Lopressor) 25 mg PO DAILY [facility] Last Admin: 07/29/16 09:35 Dose: 25 mg Polyethylene Glycol/Electrolytes (Golytely) 2,000 ml PO ONCE ONE Stop: 07/29/16 18:01 Polyethylene Glycol/Electrolytes (Golytely) 2,000 ml PO ONCE ONE Stop: 07/30/16 06:01 Rosuvastatin Calcium (Crestor) 10 mg PO HS [facility] Last Admin: 07/28/16 21:15 Dose: 10 mg Tiotropium [place] (Spiriva) 18 mcg INH RQ24 [facility] Last Admin: 07/29/16 08:40 Dose: Not Given Vitamin B Complex/Vit C/Folic Acid (Nephro-Anny) 1 tab PO DAILY [facility] Last Admin: 07/29/16 09:35 Dose: 1 tab - Labs Labs: 07/28/16 06:18 07/29/16 06:30 PT 12.5 SECONDS (9.7-12.2) H 07/28/16 06:18 INR 1.1 07/28/16 06:18 APTT 38 SECONDS (21-34) H 07/28/16 06:18
--- NOTE | 2016-07-29 17:55 | CP.PCM.PN ---
Subjective - Date & Time of Evaluation Date of Evaluation: 07/29/16 Time of Evaluation: 09:40 - Subjective Subjective: Patient seen and examined. Lying comfortably in no acute distress Denies shortness of breath, denies fever or chills, denies chest pain Objective - Vital Signs/Intake and Output Vital Signs (last 24 hours): Temp Pulse Resp BP Pulse Ox 97.3 F L 71 20 139/61 98 07/29/16 16:14 07/29/16 16:14 07/29/16 16:14 07/29/16 16:14 07/29/16 16:14 Intake and Output: 07/29/16 07/29/16 06:59 18:59 Intake Total 290 600 Output Total 900 Balance -610 600 - Medications Medications: Current Medications Albuterol (Ventolin Hfa 90 Mcg/Actuation (8 G)) 2 puff IH RQ4 PRN PRN Reason: Wheezing Albuterol/Ipratropium (Duoneb 3 Mg/0.5 Mg (3 Ml) Ud) 3 ml INH RQ6 [facility] Last Admin: 07/29/16 14:03 Dose: Not Given Amlodipine Besylate (Norvasc) 10 mg PO DAILY [facility] Last Admin: 07/29/16 09:35 Dose: 10 mg Aspirin (Ecotrin) 81 mg PO DAILY [facility] Last Admin: 07/27/16 09:34 Dose: 81 mg Azithromycin (Zithromax) 250 mg PO DAILY [facility] Stop: 07/31/16 10:01 Last Admin: 07/29/16 09:35 Dose: 250 mg Clopidogrel Bisulfate (Plavix) 75 mg PO DAILY [facility] Last Admin: 07/27/16 09:34 Dose: 75 mg Enoxaparin Sodium (Lovenox) 30 mg SC DAILY [facility] Last Admin: 07/29/16 09:34 Dose: 30 mg Famotidine (Pepcid) 20 mg PO DAILY [facility] Last Admin: 07/29/16 09:35 Dose: 20 mg Furosemide (Lasix) 20 mg IVP DAILY [facility] Last Admin: 07/29/16 09:35 Dose: 20 mg Glimepiride (Amaryl) 2 mg PO TID [facility] Last Admin: 07/29/16 13:10 Dose: 2 mg Hydralazine HCl (Apresoline) 100 mg PO TID [facility] Last Admin: 07/29/16 13:10 Dose: 100 mg Hydrochlorothiazide (Hydrodiuril) 25 mg PO DAILY [facility] Last Admin: 07/29/16 09:34 Dose: 25 mg Ceftriaxone Sodium 1 gm/ (Sodium Chloride) 100 mls @ 100 mls/hr IVPB Q24H [facility] Last Admin: 07/29/16 11:02 Dose: 100 mls/hr Insulin Aspart (Novolog) 0 unit SC TIDAC [facility] PRN Reason: Protocol Last Admin: 07/29/16 12:00 Dose: 12 unit Losartan Potassium (Cozaar) 100 mg PO DAILY [facility] Last Admin: 07/29/16 09:34 Dose: 100 mg Methylprednisolone (Solu-Medrol) 40 mg IVP Q8 [facility] Last Admin: 07/29/16 13:10 Dose: 40 mg Metoprolol Tartrate (Lopressor) 25 mg PO DAILY [facility] Last Admin: 07/29/16 09:35 Dose: 25 mg Polyethylene Glycol/Electrolytes (Golytely) 2,000 ml PO ONCE ONE Stop: 07/29/16 18:01 Polyethylene Glycol/Electrolytes (Golytely) 2,000 ml PO ONCE ONE Stop: 07/30/16 06:01 Rosuvastatin Calcium (Crestor) 10 mg PO HS [facility] Last Admin: 07/28/16 21:15 Dose: 10 mg Tiotropium [place] (Spiriva) 18 mcg INH RQ24 [facility] Last Admin: 07/29/16 08:40 Dose: Not Given Vitamin B Complex/Vit C/Folic Acid (Nephro-Anny) 1 tab PO DAILY [facility] Last Admin: 07/29/16 09:35 Dose: 1 tab - Labs Labs: 07/28/16 06:18 07/29/16 06:30 PT 12.5 SECONDS (9.7-12.2) H 07/28/16 06:18 INR 1.1 07/28/16 06:18 APTT 38 SECONDS (21-34) H 07/28/16 06:18 - Head Exam Head Exam: ATRAUMATIC, NORMOCEPHALIC - Eye Exam Eye Exam: Normal appearance - ENT Exam ENT Exam: Mucous Membranes Moist - Neck Exam Neck Exam: Normal Inspection - Respiratory Exam Respiratory Exam: Decreased Breath Sounds - Cardiovascular Exam Cardiovascular Exam: REGULAR RHYTHM - GI/Abdominal Exam GI & Abdominal Exam: Soft, Normal Bowel Sounds Assessment and Plan (1) SOB (shortness of breath) Assessment & Plan: Continue nebulizer treatment as needed For EGD and colonoscopy on Sunday Status: Acute
[2016-07-29] MEDS ORDERED: Peg-Electrolyte Oral Soln 4L (Golytely) PO ONE (18:00)
--- NOTE | 2016-07-29 22:40 | CP.PCM.PN ---
Subjective - Date & Time of Evaluation Date of Evaluation: 07/29/16 Time of Evaluation: 17:10 - Subjective Subjective: Patient feels better. denies chest pain and dyspnea Rising creatinine D/C lasix for now Patient assessed as low to intermediate risk for cardiac events for Endoscopy and Colonoscopy under concious sedation Objective - Vital Signs/Intake and Output Vital Signs (last 24 hours): Temp Pulse Resp BP Pulse Ox 97.3 F L 76 20 127/60 98 07/29/16 16:14 07/29/16 17:55 07/29/16 16:14 07/29/16 17:55 07/29/16 16:14 Intake and Output: 07/29/16 07/30/16 18:59 06:59 Intake Total 600 500 Balance 600 500 - Medications Medications: Current Medications Albuterol/Ipratropium (Duoneb 3 Mg/0.5 Mg (3 Ml) Ud) 3 ml INH RQ6 [facility] Last Admin: 07/29/16 19:11 Dose: 3 ml Amlodipine Besylate (Norvasc) 10 mg PO DAILY [facility] Last Admin: 07/29/16 09:35 Dose: 10 mg Aspirin (Ecotrin) 81 mg PO DAILY [facility] Last Admin: 07/27/16 09:34 Dose: 81 mg Azithromycin (Zithromax) 250 mg PO DAILY [facility] Stop: 07/31/16 10:01 Last Admin: 07/29/16 09:35 Dose: 250 mg Clopidogrel Bisulfate (Plavix) 75 mg PO DAILY [facility] Last Admin: 07/27/16 09:34 Dose: 75 mg Enoxaparin Sodium (Lovenox) 30 mg SC DAILY [facility] Last Admin: 07/29/16 09:34 Dose: 30 mg Famotidine (Pepcid) 20 mg PO DAILY [facility] Last Admin: 07/29/16 09:35 Dose: 20 mg Glimepiride (Amaryl) 2 mg PO TID [facility] Last Admin: 07/29/16 17:56 Dose: 2 mg Hydralazine HCl (Apresoline) 100 mg PO TID [facility] Last Admin: 07/29/16 17:56 Dose: 100 mg Hydrochlorothiazide (Hydrodiuril) 25 mg PO DAILY [facility] Last Admin: 07/29/16 09:34 Dose: 25 mg Ceftriaxone Sodium 1 gm/ (Sodium Chloride) 100 mls @ 100 mls/hr IVPB Q24H [facility] Last Admin: 07/29/16 11:02 Dose: 100 mls/hr Insulin Aspart (Novolog) 0 unit SC TIDAC [facility] PRN Reason: Protocol Last Admin: 07/29/16 16:30 Dose: Not Given Losartan Potassium (Cozaar) 100 mg PO DAILY [facility] Last Admin: 07/29/16 09:34 Dose: 100 mg Methylprednisolone (Solu-Medrol) 20 mg IVP Q8H [facility] Last Admin: 07/29/16 18:48 Dose: 20 mg Metoprolol Tartrate (Lopressor) 25 mg PO DAILY [facility] Last Admin: 07/29/16 09:35 Dose: 25 mg Polyethylene Glycol/Electrolytes (Golytely) 2,000 ml PO ONCE ONE Stop: 07/30/16 06:01 Polyethylene Glycol/Electrolytes (Golytely) 2,000 ml PO ONCE ONE Stop: 07/30/16 18:01 Polyethylene Glycol/Electrolytes (Golytely) 2,000 ml PO ONCE ONE Stop: 07/31/16 06:01 Rosuvastatin Calcium (Crestor) 10 mg PO HS [facility] Last Admin: 07/29/16 21:12 Dose: 10 mg Tiotropium [place] (Spiriva) 18 mcg INH RQ24 [facility] Last Admin: 07/29/16 08:40 Dose: Not Given Vitamin B Complex/Vit C/Folic Acid (Nephro-Anny) 1 tab PO DAILY [facility] Last Admin: 07/29/16 09:35 Dose: 1 tab - Labs Labs: 07/28/16 06:18 07/29/16 06:30 PT 12.5 SECONDS (9.7-12.2) H 07/28/16 06:18 INR 1.1 07/28/16 06:18 APTT 38 SECONDS (21-34) H 07/28/16 06:18
[2016-07-30] MEDS: Albuterol-Ipratrop 3 mg / 0.5 (3 ml) UD INH SCH ×6 (00:10→21:41)
--- NOTE | 2016-07-30 00:32 | PN ---
DATE: 07/29/2016 HISTORY OF PRESENT ILLNESS: The patient is an 81-year-old, elderly [place] male with a history of longstanding hypertension, diabetes, CHF, hyperlipidemia , coronary artery disease, status post stent placement about 2 months ago, was admitted with chief complaint of sudden onset of shortness of breath with defecation and denies any chest pain or palpitation. Denies any nausea, vomiting, or diarrhea. The patient was also found to have a low H and H, being treated for advanced congestive heart failure and status post transfusion of packed RBC transfusion 2 days ago and also found to have a stool for occult blood positive. The patient is being scheduled for possible EGD on Sunday. Denies any chest pain or palpitation. Denies any fever or cough. No abdominal pain. No nausea, vomiting, or diarrhea. PHYSICAL EXAMINATION: VITAL SIGNS: As follows: Blood pressure 139/61, pulse 71, respirations 20, temperature 97.3, saturation 98%. Height 5 feet 3 inches and weight is 145 pounds. GENERAL: The patient is an 81-year-old elderly male, well built, well nourished , not in acute distress. HEENT: Pupils normally reactive to light and accommodation. Conjunctivae pink. Sclerae anicteric. Tongue is moist. NECK: Trachea midline. LUNGS: Symmetric on both sides. Bilateral breath sounds present. Clear on auscultation. CARDIOVASCULAR: [place] in the 5th intercostal space midclavicular line. S1 and S2 audible. No murmur or gallop. ABDOMEN: Normal in appearance, soft, tympanic. No guarding, no rigidity. No hepatosplenomegaly. CENTRAL NERVOUS SYSTEM: The patient is alert, awake, oriented x 3, nonfocal on examination. Cranial nerves II-XII grossly intact. Sensory and motor system is within normal limits. EXTREMITIES: No cyanosis, no clubbing, no edema. CURRENT MEDICATIONS: Include as follows: Hydralazine 100 mg p.o. t.i.d., losartan 100 mg daily, Crestor 10 mg at bedtime, Dulcolax 10 mg p.o. x 1, DuoNeb inhaler q. 6 hours, aspirin 81 mg daily, hydrochlorothiazide 25 mg p.o. daily, Lasix 20 mg p.o. daily, metoprolol 25 mg p.o. daily, Lovenox 30 mg subcu daily, Nephro-Anny 1 tablet daily, amlodipine 10 mg daily, famotidine 20 mg p.o. daily, Plavix on hold, Rocephin 1 gram daily, methylprednisolone 20 mg IV q. 8 hours, Spiriva 18 mcg daily, azithromycin 250 mg p.o. daily, glimepiride 2 mg p.o. t.i.d. LABORATORY DATA: Include as follows: As of 07/29/2016, sodium 134, potassium is 4, chloride 93, CO2 19, BUN 85, creatinine 3.1, glucose 298, calcium is 8.0, . SUMMARY: The patient is an 81-year-old elderly male, with hypertension, diabetes, hyperlipidemia, chronic kidney disease, proteinuria, coronary artery disease, status post stent, with shortness of breath. 1. Renal failure and acute on chronic kidney disease. 2. Congestive heart failure. 3. Anemia secondary to renal failure and lower gastrointestinal bleed. 4. Hypertension. 5. Diabetes. 6. Chronic obstructive pulmonary disease. Check CMP and CBC daily. Consider to taper off steroids if possible. We will follow with you. Thank you for allowing me to participate in your patient's care. Aamir Galeano MD cc: [id number] TT: 07/30/2016 00:31:19 Confirmation # [id number] Dictation # [id number] [place] MTDD
[2016-07-30] MEDS ORDERED: Peg-Electrolyte Oral Soln 4L (Golytely) PO ONE ×2 (06:00→18:00)
[2016-07-30] MEDS: MethylPREDNISolone 40 mg Vial IVP SCH ×3 (06:14→17:47)
[2016-07-30 07:21] LABS: HEMOGLOBIN F <1.0 Percent (<2.0)
[2016-07-30 07:36] LABS: HEMATOCRIT 28.2 % (35.0-51.0); MEAN CELL VOLUME 64.1 fL (80.0-94.0); MEAN CORPUSCULAR HEMOGLOBIN 19.7 pg (27.0-31.0); MEAN CORPUSCULAR HGB CONC 30.8 g/dL (33.0-37.0); MEAN PLATELET VOLUME 9.1 fL (7.2-11.7); RED CELL DISTRIBUTION WIDTH 19.7 % (11.5-14.5)
[2016-07-30] MEDS: Tiotropium 18 mcg Cap For Inhalation INH SCH (07:39)
[2016-07-30] MEDS: (Novolog) Insulin Aspart, Recombinant 100 u/ml 10 ml vial SC SCH ×3 (08:01→16:36)
[2016-07-30] MEDS: Multivitamin Vitamin B Complex (Nephro-Vite) Tab PO SCH (09:30)
[2016-07-30] MEDS: Enoxaparin 30 mg Syringe SC SCH (09:30)
--- NOTE | 2016-07-30 11:09 | CP.PCM.PN ---
Subjective - Date & Time of Evaluation Date of Evaluation: 07/30/16 Time of Evaluation: 11:07 - Subjective Subjective: COVERING DR ROBERTS No bleeding or melena. On clear liquids Cardiac clearance now to intermediate risk with conscious sedation. Prep orders in progress Objective - Vital Signs/Intake and Output Vital Signs (last 24 hours): Temp Pulse Resp BP Pulse Ox 97.5 F L 87 20 143/63 96 07/30/16 08:16 07/30/16 08:27 07/30/16 08:16 07/30/16 09:31 07/30/16 08:16 Intake and Output: 07/30/16 07/30/16 06:59 18:59 Intake Total 500 Balance 500 - Medications Medications: Current Medications Albuterol/Ipratropium (Duoneb 3 Mg/0.5 Mg (3 Ml) Ud) 3 ml INH RQ6 [facility] Last Admin: 07/30/16 07:40 Dose: Not Given Amlodipine Besylate (Norvasc) 10 mg PO DAILY [facility] Last Admin: 07/30/16 09:31 Dose: 10 mg Aspirin (Ecotrin) 81 mg PO DAILY [facility] Last Admin: 07/30/16 09:31 Dose: 81 mg Azithromycin (Zithromax) 250 mg PO DAILY [facility] Stop: 07/31/16 10:01 Last Admin: 07/30/16 09:30 Dose: 250 mg Clopidogrel Bisulfate (Plavix) 75 mg PO DAILY [facility] Last Admin: 07/30/16 09:31 Dose: 75 mg Enoxaparin Sodium (Lovenox) 30 mg SC DAILY [facility] Last Admin: 07/30/16 09:30 Dose: 30 mg Famotidine (Pepcid) 20 mg PO DAILY [facility] Last Admin: 07/30/16 09:31 Dose: 20 mg Glimepiride (Amaryl) 2 mg PO TID [facility] Last Admin: 07/30/16 09:31 Dose: 2 mg Hydralazine HCl (Apresoline) 100 mg PO TID [facility] Last Admin: 07/30/16 09:35 Dose: 100 mg Hydrochlorothiazide (Hydrodiuril) 25 mg PO DAILY [facility] Last Admin: 07/30/16 09:35 Dose: 25 mg Ceftriaxone Sodium 1 gm/ (Sodium Chloride) 100 mls @ 100 mls/hr IVPB Q24H [facility] Last Admin: 07/29/16 11:02 Dose: 100 mls/hr Insulin Aspart (Novolog) 0 unit SC TIDAC [facility] PRN Reason: Protocol Last Admin: 07/30/16 08:01 Dose: 10 unit Losartan Potassium (Cozaar) 100 mg PO DAILY [facility] Last Admin: 07/30/16 09:31 Dose: 100 mg Methylprednisolone (Solu-Medrol) 20 mg IVP Q8H [facility] Last Admin: 07/30/16 09:31 Dose: 20 mg Metoprolol Tartrate (Lopressor) 25 mg PO DAILY [facility] Last Admin: 07/30/16 09:31 Dose: 25 mg Polyethylene Glycol/Electrolytes (Golytely) 2,000 ml PO ONCE ONE Stop: 07/30/16 18:01 Polyethylene Glycol/Electrolytes (Golytely) 2,000 ml PO ONCE ONE Stop: 07/31/16 06:01 Rosuvastatin Calcium (Crestor) 10 mg PO HS [facility] Last Admin: 07/29/16 21:12 Dose: 10 mg Tiotropium [place] (Spiriva) 18 mcg INH RQ24 [facility] Last Admin: 07/30/16 07:39 Dose: Not Given Vitamin B Complex/Vit C/Folic Acid (Nephro-Anny) 1 tab PO DAILY [facility] Last Admin: 07/30/16 09:30 Dose: 1 tab - Labs Labs: 07/30/16 07:28 07/29/16 06:30 PT 12.5 SECONDS (9.7-12.2) H 07/28/16 06:18 INR 1.1 07/28/16 06:18 APTT 38 SECONDS (21-34) H 07/28/16 06:18 - Constitutional Appears: No Acute Distress - Head Exam Head Exam: ATRAUMATIC, NORMOCEPHALIC - Eye Exam Eye Exam: EOMI, PERRL - Respiratory Exam Respiratory Exam: NORMAL BREATHING PATTERN - Cardiovascular Exam Cardiovascular Exam: REGULAR RHYTHM - GI/Abdominal Exam GI & Abdominal Exam: Soft, Normal Bowel Sounds. absent: Distended, Tenderness, Mass, Organomegaly Assessment and Plan (1) CHF exacerbation Assessment & Plan: stable at present, no SOB or CP Status: Acute (2) Coronary arteriosclerosis Assessment & Plan: as per Dr Muñiz Status: Chronic (3) Iron deficiency anemia due to chronic blood loss Assessment & Plan: Plan for EGD/Colonoscopy tomorrow. Prep orders for split dose prep in progress On clear liquid diet. Drop in Hgb to 8.7 noted Will repeat tomorrow Anti platelet meds on hold Status: Acute
--- NOTE | 2016-07-30 19:09 | CP.PCM.PN ---
Subjective - Date & Time of Evaluation Date of Evaluation: 07/30/16 Time of Evaluation: 19:09 - Subjective Subjective: pt seen and examined, follow up consult is dictated #[id number] Objective - Vital Signs/Intake and Output Vital Signs (last 24 hours): Temp Pulse Resp BP Pulse Ox 97.9 F 71 20 129/67 97 07/30/16 15:35 07/30/16 15:35 07/30/16 15:35 07/30/16 15:35 07/30/16 15:35 - Medications Medications: Current Medications Albuterol/Ipratropium (Duoneb 3 Mg/0.5 Mg (3 Ml) Ud) 3 ml INH RQ6 [facility] Last Admin: 07/30/16 13:36 Dose: 3 ml Amlodipine Besylate (Norvasc) 10 mg PO DAILY [facility] Last Admin: 07/30/16 09:31 Dose: 10 mg Aspirin (Ecotrin) 81 mg PO DAILY [facility] Last Admin: 07/30/16 09:31 Dose: 81 mg Azithromycin (Zithromax) 250 mg PO DAILY [facility] Stop: 07/31/16 10:01 Last Admin: 07/30/16 09:30 Dose: 250 mg Clopidogrel Bisulfate (Plavix) 75 mg PO DAILY [facility] Last Admin: 07/30/16 09:31 Dose: 75 mg Enoxaparin Sodium (Lovenox) 30 mg SC DAILY [facility] Last Admin: 07/30/16 09:30 Dose: 30 mg Famotidine (Pepcid) 20 mg PO DAILY [facility] Last Admin: 07/30/16 09:31 Dose: 20 mg Glimepiride (Amaryl) 2 mg PO TID [facility] Last Admin: 07/30/16 17:47 Dose: 2 mg Hydralazine HCl (Apresoline) 100 mg PO TID [facility] Last Admin: 07/30/16 18:48 Dose: 100 mg Hydrochlorothiazide (Hydrodiuril) 25 mg PO DAILY [facility] Last Admin: 07/30/16 09:35 Dose: 25 mg Ceftriaxone Sodium 1 gm/ (Sodium Chloride) 100 mls @ 100 mls/hr IVPB Q24H [facility] Last Admin: 07/30/16 11:10 Dose: 100 mls/hr Insulin Aspart (Novolog) 0 unit SC TIDAC [facility] PRN Reason: Protocol Last Admin: 07/30/16 16:36 Dose: 8 unit Losartan Potassium (Cozaar) 100 mg PO DAILY [facility] Last Admin: 07/30/16 09:31 Dose: 100 mg Methylprednisolone (Solu-Medrol) 20 mg IVP Q8H [facility] Last Admin: 07/30/16 17:47 Dose: 20 mg Metoprolol Tartrate (Lopressor) 25 mg PO DAILY [facility] Last Admin: 07/30/16 09:31 Dose: 25 mg Polyethylene Glycol/Electrolytes (Golytely) 2,000 ml PO ONCE ONE Stop: 07/31/16 06:01 Rosuvastatin Calcium (Crestor) 10 mg PO HS [facility] Last Admin: 07/29/16 21:12 Dose: 10 mg Tiotropium [place] (Spiriva) 18 mcg INH RQ24 [facility] Last Admin: 07/30/16 07:39 Dose: Not Given Vitamin B Complex/Vit C/Folic Acid (Nephro-Anny) 1 tab PO DAILY [facility] Last Admin: 07/30/16 09:30 Dose: 1 tab - Labs Labs: 07/30/16 07:28 07/29/16 06:30 PT 12.5 SECONDS (9.7-12.2) H 07/28/16 06:18 INR 1.1 07/28/16 06:18 APTT 38 SECONDS (21-34) H 07/28/16 06:18
--- NOTE | 2016-07-30 19:41 | CP.PCM.PN ---
Subjective - Date & Time of Evaluation Date of Evaluation: 07/30/16 Time of Evaluation: 01:10 - Subjective Subjective: Patient seen, in the floor, able to ambulate- aware of endoscopy procedure in am , on steroid , tapering - sugar - on the high side patient has no complaint reports, respoiratory treatment is helping Objective - Vital Signs/Intake and Output Vital Signs (last 24 hours): Temp Pulse Resp BP Pulse Ox 97.9 F 71 20 129/67 97 07/30/16 15:35 07/30/16 15:35 07/30/16 15:35 07/30/16 15:35 07/30/16 15:35 - Medications Medications: Current Medications Albuterol/Ipratropium (Duoneb 3 Mg/0.5 Mg (3 Ml) Ud) 3 ml INH RQ6 [facility] Last Admin: 07/30/16 13:36 Dose: 3 ml Amlodipine Besylate (Norvasc) 10 mg PO DAILY [facility] Last Admin: 07/30/16 09:31 Dose: 10 mg Aspirin (Ecotrin) 81 mg PO DAILY [facility] Last Admin: 07/30/16 09:31 Dose: 81 mg Azithromycin (Zithromax) 250 mg PO DAILY [facility] Stop: 07/31/16 10:01 Last Admin: 07/30/16 09:30 Dose: 250 mg Clopidogrel Bisulfate (Plavix) 75 mg PO DAILY [facility] Last Admin: 07/30/16 09:31 Dose: 75 mg Enoxaparin Sodium (Lovenox) 30 mg SC DAILY [facility] Last Admin: 07/30/16 09:30 Dose: 30 mg Famotidine (Pepcid) 20 mg PO DAILY [facility] Last Admin: 07/30/16 09:31 Dose: 20 mg Glimepiride (Amaryl) 2 mg PO TID [facility] Last Admin: 07/30/16 17:47 Dose: 2 mg Hydralazine HCl (Apresoline) 100 mg PO TID [facility] Last Admin: 07/30/16 18:48 Dose: 100 mg Hydrochlorothiazide (Hydrodiuril) 25 mg PO DAILY [facility] Last Admin: 07/30/16 09:35 Dose: 25 mg Ceftriaxone Sodium 1 gm/ (Sodium Chloride) 100 mls @ 100 mls/hr IVPB Q24H [facility] Last Admin: 07/30/16 11:10 Dose: 100 mls/hr Insulin Aspart (Novolog) 0 unit SC TIDAC [facility] PRN Reason: Protocol Last Admin: 07/30/16 16:36 Dose: 8 unit Losartan Potassium (Cozaar) 100 mg PO DAILY [facility] Last Admin: 07/30/16 09:31 Dose: 100 mg Metoprolol Tartrate (Lopressor) 25 mg PO DAILY [facility] Last Admin: 07/30/16 09:31 Dose: 25 mg Polyethylene Glycol/Electrolytes (Golytely) 2,000 ml PO ONCE ONE Stop: 07/31/16 06:01 Rosuvastatin Calcium (Crestor) 10 mg PO HS [facility] Last Admin: 07/29/16 21:12 Dose: 10 mg Tiotropium [place] (Spiriva) 18 mcg INH RQ24 [facility] Last Admin: 07/30/16 07:39 Dose: Not Given Vitamin B Complex/Vit C/Folic Acid (Nephro-Anny) 1 tab PO DAILY [facility] Last Admin: 07/30/16 09:30 Dose: 1 tab - Labs Labs: 07/30/16 07:28 07/29/16 06:30 PT 12.5 SECONDS (9.7-12.2) H 07/28/16 06:18 INR 1.1 07/28/16 06:18 APTT 38 SECONDS (21-34) H 07/28/16 06:18 - Constitutional Appears: Well, Non-toxic (ambulatroy conversant ) - Head Exam Head Exam: ATRAUMATIC, NORMOCEPHALIC - Eye Exam Eye Exam: Normal appearance - ENT Exam ENT Exam: Mucous Membranes Moist - Neck Exam Neck Exam: Full ROM. absent: Tenderness - Respiratory Exam Respiratory Exam: Clear to Ausculation Bilateral, NORMAL BREATHING PATTERN - Cardiovascular Exam Cardiovascular Exam: REGULAR RHYTHM - GI/Abdominal Exam GI & Abdominal Exam: Distended (slight, from fluid intake ), Soft, Normal Bowel Sounds. absent: Tenderness - Extremities Exam Extremities Exam: Full ROM. absent: Pedal Edema - Back Exam Back Exam: Full ROM. absent: tenderness - Neurological Exam Neurological Exam: Alert, Awake, Normal Gait, Oriented x3 - Psychiatric Exam Psychiatric exam: Normal Affect, Normal Mood - Skin Skin Exam: Intact, Normal Color Assessment and Plan - Assessment and Plan (Free Text) Assessment: Patient with hypertension, DM2, CAD admitted for CHF, COPD exacerbation, Anemia currently has dropping hemoglobin- blood thinners on hold- for endoscopy- will transufuse one unit prior to proceduer Hyperglycemia- will taper -stop steroid - planning for Insulin but will keep on sliding scale- -patient will be will be NPO tonight DEbility- discussion of subacute- patient will discuss with family
--- NOTE | 2016-07-30 20:07 | CP.PCM.PN ---
Subjective - Date & Time of Evaluation Date of Evaluation: 07/30/16 Time of Evaluation: 09:10 - Subjective Subjective: Patient scheduled for Endo/Colonoscopy tomorrow GIB with dropping Hgb Objective - Vital Signs/Intake and Output Vital Signs (last 24 hours): Temp Pulse Resp BP Pulse Ox 97.9 F 71 20 129/67 97 07/30/16 15:35 07/30/16 15:35 07/30/16 15:35 07/30/16 15:35 07/30/16 15:35 - Medications Medications: Current Medications Albuterol/Ipratropium (Duoneb 3 Mg/0.5 Mg (3 Ml) Ud) 3 ml INH RQ6 [facility] Last Admin: 07/30/16 13:36 Dose: 3 ml Amlodipine Besylate (Norvasc) 10 mg PO DAILY [facility] Last Admin: 07/30/16 09:31 Dose: 10 mg Aspirin (Ecotrin) 81 mg PO DAILY [facility] Last Admin: 07/30/16 09:31 Dose: 81 mg Azithromycin (Zithromax) 250 mg PO DAILY [facility] Stop: 07/31/16 10:01 Last Admin: 07/30/16 09:30 Dose: 250 mg Clopidogrel Bisulfate (Plavix) 75 mg PO DAILY [facility] Last Admin: 07/30/16 09:31 Dose: 75 mg Enoxaparin Sodium (Lovenox) 30 mg SC DAILY [facility] Last Admin: 07/30/16 09:30 Dose: 30 mg Famotidine (Pepcid) 20 mg PO DAILY [facility] Last Admin: 07/30/16 09:31 Dose: 20 mg Glimepiride (Amaryl) 2 mg PO TID [facility] Last Admin: 07/30/16 17:47 Dose: 2 mg Hydralazine HCl (Apresoline) 100 mg PO TID [facility] Last Admin: 07/30/16 18:48 Dose: 100 mg Hydrochlorothiazide (Hydrodiuril) 25 mg PO DAILY [facility] Last Admin: 07/30/16 09:35 Dose: 25 mg Ceftriaxone Sodium 1 gm/ (Sodium Chloride) 100 mls @ 100 mls/hr IVPB Q24H [facility] Last Admin: 07/30/16 11:10 Dose: 100 mls/hr Insulin Aspart (Novolog) 0 unit SC TIDAC [facility] PRN Reason: Protocol Last Admin: 04/02/17 16:36 Dose: 8 unit Losartan Potassium (Cozaar) 100 mg PO DAILY [facility] Last Admin: 07/30/16 09:31 Dose: 100 mg Metoprolol Tartrate (Lopressor) 25 mg PO DAILY [facility] Last Admin: 07/30/16 09:31 Dose: 25 mg Polyethylene Glycol/Electrolytes (Golytely) 2,000 ml PO ONCE ONE Stop: 07/31/16 06:01 Rosuvastatin Calcium (Crestor) 10 mg PO HS [facility] Last Admin: 07/29/16 21:12 Dose: 10 mg Tiotropium [place] (Spiriva) 18 mcg INH RQ24 [facility] Last Admin: 07/30/16 07:39 Dose: Not Given Vitamin B Complex/Vit C/Folic Acid (Nephro-Anny) 1 tab PO DAILY [facility] Last Admin: 07/30/16 09:30 Dose: 1 tab - Labs Labs: 07/30/16 07:28 07/29/16 06:30 PT 12.5 SECONDS (9.7-12.2) H 07/28/16 06:18 INR 1.1 07/28/16 06:18 APTT 38 SECONDS (21-34) H 07/28/16 06:18
--- NOTE | 2016-07-30 22:33 | PN ---
DATE: 07/30/2016 The patient is located in room 658, bed B. REQUESTED BY: Dr. Ana Noel REASON FOR FOLLOWUP: Acute renal failure, chronic kidney disease. HISTORY OF PRESENT ILLNESS: The patient is an 81-year-old elderly [place] male with history of longstanding hypertension, diabetes, proteinuria, hyperlipidemia, chronic kidney disease, anemia, CAD status post stents 2 months ago. Was admitted with the chief complaints of shortness of breath, sudden onset during defecation and patient was admitted for possible CHF and COPD exacerbation and rule out acute OH. The patient was also found to have a low H and H and is status post transfusion. The patient is scheduled for a possible EGD and colonoscopy in a.m. The patient is not in acute distress. Denies any chest pain, palpitation. Denies any fever or cough. No abdominal pain, no nausea, vomiting, diarrhea. PHYSICAL EXAMINATION: VITAL SIGNS: As follows: Blood pressure 129/67, pulse 71, respirations 20, temperature 97.9, saturation 97%. Height 5 feet 3 inches and weight is 145 pounds. GENERAL: The patient is an 81-year-old elderly male, moderately built, moderately nourished, not in distress. HEENT: Pupils normal, reactive to light and accommodation. Conjunctivae pink. Sclerae anicteric. Tongue is moist. NECK: Trachea is midline. LUNGS: Symmetric on both sides. Bilateral breath sounds present. Clear on auscultation. CARDIOVASCULAR: [place] at the fifth intercostal space midclavicular line. S1 and S2 audible. No murmur or gallop. ABDOMEN: Normal in appearance, soft, tympanic. No guarding, no rigidity. No hepatosplenomegaly. CENTRAL NERVOUS SYSTEM: The patient is alert, awake, oriented x 3, nonfocal on examination. Cranial nerves II-XII grossly intact. Sensory and motor system is within normal limits. EXTREMITIES: No cyanosis, no clubbing, no edema. CURRENT MEDICATIONS: Include, as follows: Hydralazine 100 mg p.o. t.i.d., losartan 100 mg daily, Crestor 10 mg, Dulcolax 10 mg p.o. daily, DuoNeb inhaler q.6 hours, aspirin 81 mg daily, hydrochlorothiazide 25 mg p.o. daily and metoprolol 25 mg p.o. daily and Lovenox and Nephro-Anny 1 tablet daily and amlodipine 10 mg daily, famotidine 20 mg p.o. daily and Plavix 75 mg daily and Rocephin 1 gram daily and Spiriva 18 mcg q.24 hours and azithromycin 250 mg p.o. daily and glimepiride 2 mg p.o. t.i.d. LABORATORY DATA: Includes, as follows: As of 07/30/2016: WBC 13, hemoglobin 9.7 , hematocrit is 28.2, MCV 64.1, platelets 176. Glucose 314 and 395, 343 and 240. SUMMARY: The patient is an 81-year-old elderly [place] male with a history of hypertension, diabetes, peripheral hypertension, diabetes, coronary artery disease, hyperlipidemia, chronic kidney disease, anemia and now stool for occult blood is positive. Was admitted with shortness of breath, status post transfusion. 1. Acute renal failure on chronic kidney disease, most likely secondary to vigorous diuresis. 2. Anemia secondary to renal failure and iron deficiency anemia and slow gastrointestinal loss. 3. Hypertension. 4. Status post congestive heart failure. The patient had a complete workup in the previous visits and also in the office. Continue to monitor hemoglobin and hematocrit and follow up with gastrointestinal for EGD and colonoscopy. Continue intravenous iron and Epogen. We will follow with you. Thank you for allowing me to participate in your patient's care and also, we will check for a hemoglobinopathy. Aamir Galeano MD cc: [id number] TT: 07/30/2016 22:32:30 Confirmation # [id number] Dictation # [id number] sn MTDD
[2016-07-31] MEDS: Albuterol-Ipratrop 3 mg / 0.5 (3 ml) UD INH SCH ×4 (02:10→19:13)
[2016-07-31] MEDS ORDERED: Peg-Electrolyte Oral Soln 4L (Golytely) PO ONE (06:00)
[2016-07-31 06:25] LABS: HEMATOCRIT 31.7 % (35.0-51.0); MEAN CELL VOLUME 65.6 fL (80.0-94.0); MEAN CORPUSCULAR HEMOGLOBIN 21.2 pg (27.0-31.0); MEAN CORPUSCULAR HGB CONC 32.3 g/dL (33.0-37.0); MEAN PLATELET VOLUME 9.1 fL (7.2-11.7); RED CELL DISTRIBUTION WIDTH 23.3 % (11.5-14.5); WHITE BLOOD COUNT 9.9 K/uL (4.8-10.8)
[2016-07-31] MEDS: Tiotropium 18 mcg Cap For Inhalation INH SCH (08:02)
[2016-07-31] MEDS: (Novolog) Insulin Aspart, Recombinant 100 u/ml 10 ml vial SC SCH ×4 (08:07→18:11)
[2016-07-31] MEDS ORDERED: Propofol 10 mg/ml Inj (20 ML) ONE ×2 (09:28)
[2016-07-31] MEDS ORDERED: Lactated Ringer's 500 ML IV ONE (09:32)
--- NOTE | 2016-07-31 11:13 | CP.PCM.PN ---
Subjective - Date & Time of Evaluation Date of Evaluation: 07/31/16 Time of Evaluation: 11:12 - Subjective Subjective: Pt was seen and examined at bedside after EGD and colonoscopy. Pt denies any dyspnea, chest pain, headache, palpitations, pain with inspiration, wheezes. Pt reports that he is doing well after the procedure. Objective - Vital Signs/Intake and Output Vital Signs (last 24 hours): Temp Pulse Resp BP Pulse Ox 98.2 F 71 13 138/61 99 07/31/16 10:20 07/31/16 10:50 07/31/16 10:50 07/31/16 10:50 07/31/16 10:50 Intake and Output: 07/31/16 07/31/16 06:59 18:59 Intake Total 375 Balance 375 - Medications Medications: Current Medications Albuterol/Ipratropium (Duoneb 3 Mg/0.5 Mg (3 Ml) Ud) 3 ml INH RQ6 [facility] Last Admin: 07/31/16 08:02 Dose: Not Given Amlodipine Besylate (Norvasc) 10 mg PO DAILY [facility] Last Admin: 07/30/16 09:31 Dose: 10 mg Aspirin (Ecotrin) 81 mg PO DAILY [facility] Last Admin: 07/30/16 09:31 Dose: 81 mg Clopidogrel Bisulfate (Plavix) 75 mg PO DAILY [facility] Last Admin: 07/30/16 09:31 Dose: 75 mg Famotidine (Pepcid) 20 mg PO DAILY [facility] Last Admin: 07/30/16 09:31 Dose: 20 mg Glimepiride (Amaryl) 2 mg PO TID [facility] Last Admin: 07/30/16 17:47 Dose: 2 mg Hydralazine HCl (Apresoline) 100 mg PO TID [facility] Last Admin: 07/30/16 18:48 Dose: 100 mg Hydrochlorothiazide (Hydrodiuril) 25 mg PO DAILY [facility] Last Admin: 07/30/16 09:35 Dose: 25 mg Ceftriaxone Sodium 1 gm/ (Sodium Chloride) 100 mls @ 100 mls/hr IVPB Q24H [facility] Last Admin: 07/30/16 11:10 Dose: 100 mls/hr Insulin Aspart (Novolog) 0 unit SC TIDAC [facility] PRN Reason: Protocol Last Admin: 07/31/16 08:32 Dose: 2 unit Losartan Potassium (Cozaar) 100 mg PO DAILY [facility] Last Admin: 07/30/16 09:31 Dose: 100 mg Metoprolol Tartrate (Lopressor) 25 mg PO DAILY [facility] Last Admin: 07/30/16 09:31 Dose: 25 mg Rosuvastatin Calcium (Crestor) 10 mg PO HS [facility] Last Admin: 07/30/16 22:36 Dose: 10 mg Tiotropium [place] (Spiriva) 18 mcg INH RQ24 [facility] Last Admin: 07/31/16 08:02 Dose: Not Given Vitamin B Complex/Vit C/Folic Acid (Nephro-Anny) 1 tab PO DAILY [facility] Last Admin: 07/30/16 09:30 Dose: 1 tab - Labs Labs: 07/31/16 05:58 07/29/16 06:30 PT 12.5 SECONDS (9.7-12.2) H 07/28/16 06:18 INR 1.1 07/28/16 06:18 APTT 38 SECONDS (21-34) H 07/28/16 06:18 - Constitutional Appears: Well, Non-toxic, No Acute Distress - Head Exam Head Exam: ATRAUMATIC, NORMAL INSPECTION - Eye Exam Eye Exam: Normal appearance - Respiratory Exam Respiratory Exam: Decreased Breath Sounds - Cardiovascular Exam Cardiovascular Exam: +S1, +S2 - Neurological Exam Neurological Exam: Alert, Awake, Oriented x3 - Skin Skin Exam: Dry, Normal Color, Warm Assessment and Plan (1) SOB (shortness of breath) Assessment & Plan: Pt is improving continue nebulizer treatments as needed continue recommendations by medicine team Status: Acute
[2016-07-31] MEDS: Multivitamin Vitamin B Complex (Nephro-Vite) Tab PO SCH (11:18)
--- NOTE | 2016-07-31 13:48 | CP.PCM.PN ---
Subjective - Date & Time of Evaluation Date of Evaluation: 07/31/16 Time of Evaluation: 13:47 - Subjective Subjective: pt seen and examined, follow up consult is dictated #[id number] d/c hctz, ivf 1/2 ns at 70-60 ml/hr bmp in am Objective - Vital Signs/Intake and Output Vital Signs (last 24 hours): Temp Pulse Resp BP Pulse Ox 97.3 F L 62 18 168/76 H 97 07/31/16 11:10 07/31/16 11:10 07/31/16 11:10 07/31/16 11:18 07/31/16 11:10 Intake and Output: 07/31/16 07/31/16 06:59 18:59 Intake Total 375 Balance 375 - Medications Medications: Current Medications Albuterol/Ipratropium (Duoneb 3 Mg/0.5 Mg (3 Ml) Ud) 3 ml INH RQ6 [facility] Last Admin: 07/31/16 08:02 Dose: Not Given Amlodipine Besylate (Norvasc) 10 mg PO DAILY [facility] Last Admin: 07/31/16 11:17 Dose: 10 mg Aspirin (Ecotrin) 81 mg PO DAILY [facility] Last Admin: 07/31/16 11:18 Dose: 81 mg Clopidogrel Bisulfate (Plavix) 75 mg PO DAILY [facility] Last Admin: 07/31/16 11:17 Dose: 75 mg Famotidine (Pepcid) 20 mg PO DAILY [facility] Last Admin: 07/31/16 11:24 Dose: 20 mg Glimepiride (Amaryl) 2 mg PO TID [facility] Last Admin: 07/31/16 11:18 Dose: 2 mg Hydralazine HCl (Apresoline) 100 mg PO TID [facility] Last Admin: 07/31/16 11:21 Dose: 100 mg Hydrochlorothiazide (Hydrodiuril) 25 mg PO DAILY [facility] Last Admin: 07/31/16 11:17 Dose: 25 mg Ceftriaxone Sodium 1 gm/ (Sodium Chloride) 100 mls @ 100 mls/hr IVPB Q24H [facility] Last Admin: 07/31/16 11:21 Dose: 100 mls/hr Insulin Aspart (Novolog) 0 unit SC TIDAC [facility] PRN Reason: Protocol Last Admin: 07/31/16 12:52 Dose: 4 unit Losartan Potassium (Cozaar) 100 mg PO DAILY [facility] Last Admin: 07/31/16 11:17 Dose: 100 mg Metoprolol Tartrate (Lopressor) 25 mg PO DAILY [facility] Last Admin: 07/31/16 11:18 Dose: 25 mg Rosuvastatin Calcium (Crestor) 10 mg PO HS [facility] Last Admin: 07/30/16 22:36 Dose: 10 mg Tiotropium [place] (Spiriva) 18 mcg INH RQ24 [facility] Last Admin: 07/31/16 08:02 Dose: Not Given Vitamin B Complex/Vit C/Folic Acid (Nephro-Anny) 1 tab PO DAILY [facility] Last Admin: 07/31/16 11:18 Dose: 1 tab - Labs Labs: 07/31/16 05:58 07/29/16 06:30 PT 12.5 SECONDS (9.7-12.2) H 07/28/16 06:18 INR 1.1 07/28/16 06:18 APTT 38 SECONDS (21-34) H 07/28/16 06:18
[2016-07-31 14:59] LABS: POTASSIUM 4.1 mmol/L (3.6-5.2)
[2016-07-31 15:32] LABS: CALCIUM 7.6 mg/dl (8.6-10.4)
[2016-07-31] MEDS: Sodium Chloride 0.45% 1,000 ML IV SCH (16:45)
--- NOTE | 2016-07-31 17:12 | CP.PCM.PN ---
Subjective - Date & Time of Evaluation Date of Evaluation: 07/31/16 Time of Evaluation: 01:10 - Subjective Subjective: patient seen, post endoscopy- is ambulatory conversant aware of EGD findings no complaints on breathing no current complaints Objective - Vital Signs/Intake and Output Vital Signs (last 24 hours): Temp Pulse Resp BP Pulse Ox 97.5 F L 64 20 119/58 L 97 07/31/16 16:12 07/31/16 16:12 07/31/16 16:12 07/31/16 16:12 07/31/16 16:12 Intake and Output: 07/31/16 07/31/16 06:59 18:59 Intake Total 375 Balance 375 - Medications Medications: Current Medications Albuterol/Ipratropium (Duoneb 3 Mg/0.5 Mg (3 Ml) Ud) 3 ml INH RQ6 [facility] Last Admin: 07/31/16 14:21 Dose: 3 ml Amlodipine Besylate (Norvasc) 10 mg PO DAILY [facility] Last Admin: 07/31/16 11:17 Dose: 10 mg Aspirin (Ecotrin) 81 mg PO DAILY [facility] Last Admin: 07/31/16 11:18 Dose: 81 mg Clopidogrel Bisulfate (Plavix) 75 mg PO DAILY [facility] Last Admin: 07/31/16 11:17 Dose: 75 mg Famotidine (Pepcid) 20 mg PO DAILY [facility] Last Admin: 07/31/16 11:24 Dose: 20 mg Glimepiride (Amaryl) 2 mg PO TID [facility] Last Admin: 07/31/16 14:12 Dose: 2 mg Hydralazine HCl (Apresoline) 100 mg PO TID [facility] Last Admin: 07/31/16 14:12 Dose: 100 mg Hydrochlorothiazide (Hydrodiuril) 25 mg PO DAILY [facility] Last Admin: 07/31/16 11:17 Dose: 25 mg Ceftriaxone Sodium 1 gm/ (Sodium Chloride) 100 mls @ 100 mls/hr IVPB Q24H [facility] Last Admin: 07/31/16 11:21 Dose: 100 mls/hr Sodium Chloride (Sodium Chloride 0.45%) 1,000 mls @ 70 mls/hr IV .[id number] [facility] Insulin Aspart (Novolog) 0 unit SC TIDAC [facility] PRN Reason: Protocol Last Admin: 07/31/16 12:52 Dose: 4 unit Losartan Potassium (Cozaar) 100 mg PO DAILY [facility] Last Admin: 07/31/16 11:17 Dose: 100 mg Metoprolol Tartrate (Lopressor) 25 mg PO DAILY [facility] Last Admin: 07/31/16 11:18 Dose: 25 mg Rosuvastatin Calcium (Crestor) 10 mg PO HS [facility] Last Admin: 07/30/16 22:36 Dose: 10 mg Tiotropium [place] (Spiriva) 18 mcg INH RQ24 [facility] Last Admin: 07/31/16 08:02 Dose: Not Given Vitamin B Complex/Vit C/Folic Acid (Nephro-Anny) 1 tab PO DAILY [facility] Last Admin: 07/31/16 11:18 Dose: 1 tab - Labs Labs: 07/31/16 05:58 07/31/16 14:36 PT 12.5 SECONDS (9.7-12.2) H 07/28/16 06:18 INR 1.1 07/28/16 06:18 APTT 38 SECONDS (21-34) H 07/28/16 06:18 - Constitutional Appears: Well - Head Exam Head Exam: ATRAUMATIC, NORMOCEPHALIC - Eye Exam Eye Exam: Normal appearance - ENT Exam ENT Exam: Mucous Membranes Moist - Neck Exam Neck Exam: Full ROM. absent: Tenderness - Respiratory Exam Respiratory Exam: Clear to Ausculation Bilateral, NORMAL BREATHING PATTERN - Cardiovascular Exam Cardiovascular Exam: REGULAR RHYTHM - GI/Abdominal Exam GI & Abdominal Exam: Soft, Normal Bowel Sounds. absent: Tenderness - Extremities Exam Extremities Exam: Full ROM. absent: Pedal Edema, Tenderness - Neurological Exam Neurological Exam: Alert, Awake, Normal Gait, Oriented x3 - Psychiatric Exam Psychiatric exam: Normal Affect, Normal Mood - Skin Skin Exam: Intact, Normal Color Assessment and Plan - Assessment and Plan (Free Text) Assessment: Patient with COPD,improving Anemia - improved after transfusion ChF- on lasix is status pos Endoscopy with bleeding andiodytsplaisa, blood thinners on hold discussed with Cardio is currently has worsened CRI and Dehydration possibly from colonoscopy prep/ cleansing , on IVF, with CHF monitoring Hyperglycemia- off steroid will continue to monitor for now
--- NOTE | 2016-07-31 21:05 | CP.PCM.PN ---
Subjective - Date & Time of Evaluation Date of Evaluation: 07/31/16 Time of Evaluation: 14:10 - Subjective Subjective: Patient seen and evaluated Breathing better S/P EGD Resume ASA and Plavix after clearance from GI Rising BUN/Creatinine. Renal on case Objective - Vital Signs/Intake and Output Vital Signs (last 24 hours): Temp Pulse Resp BP Pulse Ox 97.5 F L 64 20 119/58 L 97 07/31/16 16:12 07/31/16 16:12 07/31/16 16:12 07/31/16 16:12 07/31/16 16:12 - Medications Medications: Current Medications Albuterol/Ipratropium (Duoneb 3 Mg/0.5 Mg (3 Ml) Ud) 3 ml INH RQ6 [facility] Last Admin: 07/31/16 19:13 Dose: 3 ml Amlodipine Besylate (Norvasc) 10 mg PO DAILY [facility] Last Admin: 07/31/16 11:17 Dose: 10 mg Aspirin (Ecotrin) 81 mg PO DAILY [facility] Last Admin: 07/31/16 11:18 Dose: 81 mg Famotidine (Pepcid) 20 mg PO DAILY [facility] Last Admin: 07/31/16 11:24 Dose: 20 mg Glimepiride (Amaryl) 2 mg PO TID [facility] Last Admin: 07/31/16 17:50 Dose: 2 mg Hydralazine HCl (Apresoline) 100 mg PO TID [facility] Last Admin: 07/31/16 17:48 Dose: 100 mg Ceftriaxone Sodium 1 gm/ (Sodium Chloride) 100 mls @ 100 mls/hr IVPB Q24H [facility] Last Admin: 07/31/16 11:21 Dose: 100 mls/hr Sodium Chloride (Sodium Chloride 0.45%) 1,000 mls @ 70 mls/hr IV .[id number] [facility] Last Admin: 07/31/16 16:45 Dose: 70 mls/hr Insulin Aspart (Novolog) 0 unit SC TIDAC [facility] PRN Reason: Protocol Last Admin: 07/31/16 18:11 Dose: 2 unit Losartan Potassium (Cozaar) 100 mg PO DAILY [facility] Last Admin: 07/31/16 11:17 Dose: 100 mg Metoprolol Tartrate (Lopressor) 25 mg PO DAILY [facility] Last Admin: 07/31/16 11:18 Dose: 25 mg Rosuvastatin Calcium (Crestor) 10 mg PO HS [facility] Last Admin: 07/30/16 22:36 Dose: 10 mg Tiotropium [place] (Spiriva) 18 mcg INH RQ24 [facility] Last Admin: 07/31/16 08:02 Dose: Not Given Vitamin B Complex/Vit C/Folic Acid (Nephro-Anny) 1 tab PO DAILY [facility] Last Admin: 07/31/16 11:18 Dose: 1 tab - Labs Labs: 07/31/16 05:58 07/31/16 14:36 PT 12.5 SECONDS (9.7-12.2) H 07/28/16 06:18 INR 1.1 07/28/16 06:18 APTT 38 SECONDS (21-34) H 07/28/16 06:18
--- NOTE | 2016-07-31 21:46 | PN ---
DATE: 07/31/2016 The patient is located in room 658, bed B. REQUESTED BY: Dr. Ana Noel. REASON FOR FOLLOWUP: Acute renal failure, chronic kidney disease. HISTORY OF PRESENT ILLNESS: The patient is an 81-year-old elderly [place] male with a history of longstanding hypertension, diabetes, hyperlipidemia, coronary artery disease, CHF, CAD status post stent placement, was admitted with shortness of breath and also found to have a low H and H, and stool for occult blood was positive and increased BUN and creatinine. The patient underwent EGD and colonoscopy today. Colonoscopy consistent with internal hemorrhoids. EGD consistent with bleeding angiodysplasia, which was cauterized. The patient is not in acute distress, drowsy, arousable, following commands appropriately. No chest pain, no palpitations, no fever, no cough, no abdominal pain, no nausea, vomiting, diarrhea. No edema of the legs. PHYSICAL EXAMINATION: VITAL SIGNS: As follows: Blood pressure 119/58, pulse 64, respiration 20, temperature 97.5, saturation 97%, height 5 feet 3 inches and weight is 152 pounds. GENERAL: The patient is an 81-year-old elderly male, moderately built, moderately nourished, not in acute distress. HEENT: Pupils normal, reactive to light and accommodation. Conjunctivae pink. Sclerae anicteric. Tongue is moist. NECK: Trachea midline. LUNGS: Symmetric on both sides. Bilateral breath sounds present. Clear on auscultation. CARDIOVASCULAR: [place] in the fifth intercostal space midclavicular line. S1 and S2 audible. No murmur or gallop. ABDOMEN: Normal in appearance, soft, tympanic. No guarding, no rigidity. No hepatosplenomegaly. CENTRAL NERVOUS SYSTEM: The patient is alert, awake, oriented x 3, nonfocal on examination. EXTREMITIES: No cyanosis, no clubbing, no edema. CURRENT MEDICATIONS: Include as follows: Hydralazine 100 mg p.o. t.i.d., losartan 100 mg p.o. daily, Crestor 10 mg at bedtime, DuoNeb inhaler q. 6 hours , aspirin 81 mg daily, hydrochlorothiazide 25 mg p.o. daily, metoprolol 25 mg p.o. daily, Nephro-Anny 1 tablet daily, amlodipine 10 mg daily, famotidine 20 mg p.o. daily, Rocephin 1 gram daily, Spiriva 18 mcg inhaler q. 24 hours and glimepiride 2 mg p.o. t.i.d. LABORATORY DATA: Include as follows: As of 07/31/2016, WBC 9.9, hematocrit is 31.7, MCV 65.6, and platelets 189. Sodium 134, potassium 4.1, chloride 98, CO2 of 19, BUN 100, creatinine 3.2, glucose 217, calcium 7.6. SUMMARY: The patient is an 81-year-old elderly male with a history of longstanding hypertension, diabetes, hyperlipidemia, chronic kidney disease with proteinuria, CAD status post stent placement, was admitted with shortness of breath and low H and H, status post EGD and colonoscopy today and increased BUN and creatinine. 1. Acute on chronic kidney disease, baseline creatinine about 2-2.5. Increasing azotemia and increased creatinine is most likely secondary to GI bleed and steroids and vigorous diuresis. 2. Hypertension. Blood pressure is stable. 3. Anemia, status post transfusion. H and H is stable. Continue IV iron and Epogen. We will hold hydrochlorothiazide and we will start IV fluids half normal saline at 60-70 mL per hour and repeat BMP in the a.m. Hemoglobin electrophoresis normal pattern. Other laboratory data, PTH intact level is 64 as of 07/28/2016. [place] acid is more than 20. B12 is more than 1000. In summary, the patient is an 81-year-old elderly male with hypertension, diabetes, hyperlipidemia, chronic kidney disease. We will continue to monitor. BMP in a.m. We will follow with you. Thank you for allowing me to participate in your patient's care. Aamir Galeano MD cc: [id number] TT: 07/31/2016 21:45:13 Confirmation # [id number] Dictation # [id number]
[2016-08-01] MEDS: Albuterol-Ipratrop 3 mg / 0.5 (3 ml) UD INH SCH ×4 (01:20→13:20)
[2016-08-01] MEDS: Sodium Chloride 0.45% 1,000 ML IV SCH (05:27)
[2016-08-01 06:43] LABS: POTASSIUM 3.9 mmol/L (3.6-5.2)
[2016-08-01 06:47] LABS: CALCIUM 7.8 mg/dl (8.6-10.4)
[2016-08-01] MEDS: (Novolog) Insulin Aspart, Recombinant 100 u/ml 10 ml vial SC SCH ×3 (07:58→17:32)
[2016-08-01] MEDS: Multivitamin Vitamin B Complex (Nephro-Vite) Tab PO SCH (09:37)
--- NOTE | 2016-08-01 10:15 | CP.PCM.PN ---
Subjective - Date & Time of Evaluation Date of Evaluation: 08/01/16 Time of Evaluation: 09:30 - Subjective Subjective: Patient seen, is on liquid diet after endoscopy- tolerating was placed on IVF yesterday due to dehydration following colonoscopy prep today , patient has no complaints aware of endoscopy findings Objective - Vital Signs/Intake and Output Vital Signs (last 24 hours): Temp Pulse Resp BP Pulse Ox 97.7 F 80 18 167/74 H 96 08/01/16 07:10 08/01/16 07:10 08/01/16 07:10 08/01/16 09:38 08/01/16 07:10 Intake and Output: 08/01/16 08/01/16 06:59 18:59 Intake Total 560 Output Total 1200 Balance -640 - Medications Medications: Current Medications Albuterol/Ipratropium (Duoneb 3 Mg/0.5 Mg (3 Ml) Ud) 3 ml INH RQ6 [facility] Last Admin: 08/01/16 08:08 Dose: 3 ml Amlodipine Besylate (Norvasc) 10 mg PO DAILY [facility] Last Admin: 08/01/16 09:37 Dose: 10 mg Aspirin (Ecotrin) 81 mg PO DAILY [facility] Last Admin: 07/31/16 11:18 Dose: 81 mg Famotidine (Pepcid) 20 mg PO DAILY [facility] Last Admin: 08/01/16 09:36 Dose: 20 mg Glimepiride (Amaryl) 2 mg PO TID [facility] Last Admin: 08/01/16 09:36 Dose: 2 mg Hydralazine HCl (Apresoline) 100 mg PO TID [facility] Last Admin: 08/01/16 09:37 Dose: 100 mg Ceftriaxone Sodium 1 gm/ (Sodium Chloride) 100 mls @ 100 mls/hr IVPB Q24H [facility] Last Admin: 07/31/16 11:21 Dose: 100 mls/hr Insulin Aspart (Novolog) 0 unit SC TIDAC [facility] PRN Reason: Protocol Last Admin: 08/01/16 07:58 Dose: Not Given Losartan Potassium (Cozaar) 100 mg PO DAILY [facility] Last Admin: 08/01/16 09:37 Dose: 100 mg Metoprolol Tartrate (Lopressor) 25 mg PO DAILY [facility] Last Admin: 08/01/16 09:38 Dose: 25 mg Rosuvastatin Calcium (Crestor) 10 mg PO HS [facility] Last Admin: 07/31/16 21:45 Dose: 10 mg Tiotropium [place] (Spiriva) 18 mcg INH RQ24 [facility] Last Admin: 07/31/16 08:02 Dose: Not Given Vitamin B Complex/Vit C/Folic Acid (Nephro-Anny) 1 tab PO DAILY [facility] Last Admin: 08/01/16 09:37 Dose: 1 tab - Labs Labs: 07/31/16 05:58 08/01/16 06:05 PT 12.5 SECONDS (9.7-12.2) H 07/28/16 06:18 INR 1.1 07/28/16 06:18 APTT 38 SECONDS (21-34) H 07/28/16 06:18 - Constitutional Appears: Well, Non-toxic - Head Exam Head Exam: ATRAUMATIC, NORMOCEPHALIC - Eye Exam Eye Exam: Normal appearance - ENT Exam ENT Exam: Mucous Membranes Moist - Neck Exam Neck Exam: Full ROM. absent: Tenderness - Respiratory Exam Respiratory Exam: Decreased Breath Sounds (starts to congest ), NORMAL BREATHING PATTERN - Cardiovascular Exam Cardiovascular Exam: REGULAR RHYTHM - GI/Abdominal Exam GI & Abdominal Exam: Soft, Normal Bowel Sounds. absent: Tenderness - Extremities Exam Extremities Exam: Full ROM. absent: Pedal Edema - Neurological Exam Neurological Exam: Alert, Awake, Normal Gait, Oriented x3 - Psychiatric Exam Psychiatric exam: Normal Affect, Normal Mood - Skin Skin Exam: Intact, Normal Color Assessment and Plan - Assessment and Plan (Free Text) Assessment: Patient with COPD CHF DM2 CAD with Acute on chronic anemia- s/p transfusion EGD bleeding dysplasia, ,, ongoing diet observation post endoscopy episode of dehydration- placed on IVF - but starts to congest now- will DC IVF , currently no breathing problem, to monitor DM-sugar starts to go down =off steroid further observation
--- NOTE | 2016-08-01 13:21 | CP.PCM.PN ---
Subjective - Date & Time of Evaluation Date of Evaluation: 08/01/16 Time of Evaluation: 13:18 - Subjective Subjective: Pt seen and examined today at bedside, no acute distress, no acute events overnight. Pt was resting comfortably in bed, reports mild shortness of breath in the morning and required one breathing treatment but has since been asymptomatic. Pt currently denies chest pain, headache, nausea, fever, chills, vomiting, palpitations. Objective - Vital Signs/Intake and Output Vital Signs (last 24 hours): Temp Pulse Resp BP Pulse Ox 97.7 F 68 18 167/74 H 96 08/01/16 07:10 08/01/16 10:16 08/01/16 07:10 08/01/16 09:38 08/01/16 07:10 Intake and Output: 08/01/16 08/01/16 06:59 18:59 Intake Total 560 Output Total 1200 Balance -640 - Medications Medications: Current Medications Albuterol/Ipratropium (Duoneb 3 Mg/0.5 Mg (3 Ml) Ud) 3 ml INH RQ6 [facility] Last Admin: 08/01/16 08:08 Dose: 3 ml Amlodipine Besylate (Norvasc) 10 mg PO DAILY [facility] Last Admin: 08/01/16 09:37 Dose: 10 mg Aspirin (Ecotrin) 81 mg PO DAILY [facility] Last Admin: 07/31/16 11:18 Dose: 81 mg Famotidine (Pepcid) 20 mg PO DAILY [facility] Last Admin: 08/01/16 09:36 Dose: 20 mg Glimepiride (Amaryl) 2 mg PO TID [facility] Last Admin: 08/01/16 09:36 Dose: 2 mg Hydralazine HCl (Apresoline) 100 mg PO TID [facility] Last Admin: 08/01/16 09:37 Dose: 100 mg Ceftriaxone Sodium 1 gm/ (Sodium Chloride) 100 mls @ 100 mls/hr IVPB Q24H [facility] Last Admin: 08/01/16 11:28 Dose: 100 mls/hr Insulin Aspart (Novolog) 0 unit SC TIDAC [facility] PRN Reason: Protocol Last Admin: 08/01/16 12:42 Dose: 6 unit Losartan Potassium (Cozaar) 100 mg PO DAILY [facility] Last Admin: 08/01/16 09:37 Dose: 100 mg Metoprolol Tartrate (Lopressor) 25 mg PO DAILY [facility] Last Admin: 08/01/16 09:38 Dose: 25 mg Rosuvastatin Calcium (Crestor) 10 mg PO HS [facility] Last Admin: 07/31/16 21:45 Dose: 10 mg Tiotropium [place] (Spiriva) 18 mcg INH RQ24 [facility] Last Admin: 07/31/16 08:02 Dose: Not Given Vitamin B Complex/Vit C/Folic Acid (Nephro-Anny) 1 tab PO DAILY [facility] Last Admin: 08/01/16 09:37 Dose: 1 tab - Labs Labs: 07/31/16 05:58 08/01/16 06:05 PT 12.5 SECONDS (9.7-12.2) H 07/28/16 06:18 INR 1.1 07/28/16 06:18 APTT 38 SECONDS (21-34) H 07/28/16 06:18 - Constitutional Appears: Well, Non-toxic, No Acute Distress - Head Exam Head Exam: ATRAUMATIC, NORMAL INSPECTION - Eye Exam Eye Exam: Normal appearance - Respiratory Exam Respiratory Exam: Clear to Ausculation Bilateral. absent: Rales, Rhonchi, Wheezes - Neurological Exam Neurological Exam: Alert, Awake, Oriented x3 - Skin Skin Exam: Dry, Normal Color, Warm Assessment and Plan (1) SOB (shortness of breath) Assessment & Plan: Patient is improving Taper steroid dose today continue recommendations by medicine team Status: Acute
--- NOTE | 2016-08-01 17:52 | CP.PCM.PN ---
Subjective - Date & Time of Evaluation Date of Evaluation: 08/01/16 Time of Evaluation: 17:51 - Subjective Subjective: Discussed with Dr. Hakeem Mason to start ASA 81 now Resume Plavix after 2 weeks (Nightly doses) Continue PPI (Morning doses) Objective - Vital Signs/Intake and Output Vital Signs (last 24 hours): Temp Pulse Resp BP Pulse Ox 98.1 F 66 20 165/65 H 98 08/01/16 15:48 08/01/16 17:45 08/01/16 15:48 08/01/16 15:48 08/01/16 15:48 Intake and Output: 08/01/16 08/01/16 06:59 18:59 Intake Total 560 Output Total 1200 400 Balance -640 -400 - Medications Medications: Current Medications Amlodipine Besylate (Norvasc) 10 mg PO DAILY [facility] Last Admin: 08/01/16 09:37 Dose: 10 mg Aspirin (Ecotrin) 81 mg PO DAILY [facility] Last Admin: 07/31/16 11:18 Dose: 81 mg Famotidine (Pepcid) 20 mg PO DAILY [facility] Last Admin: 08/01/16 09:36 Dose: 20 mg Glimepiride (Amaryl) 2 mg PO TID [facility] Last Admin: 08/01/16 13:44 Dose: 2 mg Hydralazine HCl (Apresoline) 100 mg PO TID [facility] Last Admin: 08/01/16 13:44 Dose: 100 mg Ceftriaxone Sodium 1 gm/ (Sodium Chloride) 100 mls @ 100 mls/hr IVPB Q24H [facility] Last Admin: 08/01/16 11:28 Dose: 100 mls/hr Insulin Aspart (Novolog) 0 unit SC TIDAC [facility] PRN Reason: Protocol Last Admin: 08/01/16 17:32 Dose: Not Given Losartan Potassium (Cozaar) 100 mg PO DAILY [facility] Last Admin: 08/01/16 09:37 Dose: 100 mg Metoprolol Tartrate (Lopressor) 25 mg PO DAILY [facility] Last Admin: 08/01/16 09:38 Dose: 25 mg Rosuvastatin Calcium (Crestor) 10 mg PO HS [facility] Last Admin: 07/31/16 21:45 Dose: 10 mg Tiotropium [place] (Spiriva) 18 mcg INH RQ24 [facility] Last Admin: 07/31/16 08:02 Dose: Not Given Vitamin B Complex/Vit C/Folic Acid (Nephro-Anny) 1 tab PO DAILY [facility] Last Admin: 08/01/16 09:37 Dose: 1 tab - Labs Labs: 07/31/16 05:58 08/01/16 06:05 PT 12.5 SECONDS (9.7-12.2) H 07/28/16 06:18 INR 1.1 07/28/16 06:18 APTT 38 SECONDS (21-34) H 07/28/16 06:18
--- NOTE | 2016-08-01 19:50 | CP.PCM.PN ---
Subjective - Date & Time of Evaluation Date of Evaluation: 08/01/16 Time of Evaluation: 19:49 - Subjective Subjective: pt seen and examined, follow up consult is dictated #[id number] add lasix 40 mg daily po/iv agree to d/c ivf Objective - Vital Signs/Intake and Output Vital Signs (last 24 hours): Temp Pulse Resp BP Pulse Ox 98.1 F 71 20 169/67 H 98 08/01/16 15:48 08/01/16 17:53 08/01/16 15:48 08/01/16 17:53 08/01/16 15:48 Intake and Output: 08/01/16 08/02/16 18:59 06:59 Output Total 400 Balance -400 - Medications Medications: Current Medications Amlodipine Besylate (Norvasc) 10 mg PO DAILY [facility] Last Admin: 08/01/16 09:37 Dose: 10 mg Aspirin (Ecotrin) 81 mg PO DAILY [facility] Last Admin: 07/31/16 11:18 Dose: 81 mg Famotidine (Pepcid) 20 mg PO DAILY [facility] Last Admin: 08/01/16 09:36 Dose: 20 mg Glimepiride (Amaryl) 2 mg PO TID [facility] Last Admin: 08/01/16 17:51 Dose: 2 mg Hydralazine HCl (Apresoline) 100 mg PO TID [facility] Last Admin: 08/01/16 17:50 Dose: 100 mg Ceftriaxone Sodium 1 gm/ (Sodium Chloride) 100 mls @ 100 mls/hr IVPB Q24H [facility] Last Admin: 08/01/16 11:28 Dose: 100 mls/hr Insulin Aspart (Novolog) 0 unit SC TIDAC [facility] PRN Reason: Protocol Last Admin: 08/01/16 17:32 Dose: Not Given Losartan Potassium (Cozaar) 100 mg PO DAILY [facility] Last Admin: 08/01/16 09:37 Dose: 100 mg Metoprolol Tartrate (Lopressor) 25 mg PO DAILY [facility] Last Admin: 08/01/16 09:38 Dose: 25 mg Rosuvastatin Calcium (Crestor) 10 mg PO HS [facility] Last Admin: 07/31/16 21:45 Dose: 10 mg Tiotropium [place] (Spiriva) 18 mcg INH RQ24 [facility] Last Admin: 07/31/16 08:02 Dose: Not Given Vitamin B Complex/Vit C/Folic Acid (Nephro-Anny) 1 tab PO DAILY [facility] Last Admin: 08/01/16 09:37 Dose: 1 tab - Labs Labs: 07/31/16 05:58 08/01/16 06:05 PT 12.5 SECONDS (9.7-12.2) H 07/28/16 06:18 INR 1.1 07/28/16 06:18 APTT 38 SECONDS (21-34) H 07/28/16 06:18
--- NOTE | 2016-08-01 21:17 | PN ---
DATE: 08/01/2016 The patient is located in room 658, bed B. HISTORY OF PRESENT ILLNESS: The patient is an 81-year-old elderly [place] male with a history of lo ngstanding hypertension, diabetes, hyperlipidemia, proteinuria, chronic kidney disease, CAD, status p ost stent placement, who was admitted with shortness of breath. The patient is not in acute distress at this time, complaining of shortness of breath this morning, and IV fluids were discontinued. The patient was also found to have a low H and H and also positive stool for occult blood and underwent an EGD and colonoscopy, found to have internal hemorrhoids and also bleeding [facility], status post cauterization. The patient is on clear liquids. The patient is not in acute dist ress at this time. PHYSICAL EXAMINATION: VITAL SIGNS: Blood pressure 169/67, pulse 71, respirations 20, temperature 98.1, height is 5 feet 3 inches and weight is 171 pounds. GENERAL: The patient is an 81-year-old elderly male, moderately built, moderately nourished, not in acute distress. HEENT: Pupils normal, reactive to light and accommodation. Conjunctivae pink. Sclerae anicteric. Tongue is moist. NECK: Trachea is midline. LUNGS: Symmetric on both sides. Bilateral breath sounds present. Bilateral basal crackles present. CARDIOVASCULAR: [place] in the fifth intercostal space midclavicular line. S1 and S2 audible. No murm ur or gallop. ABDOMEN: Normal in appearance, soft, tympanic. No guarding, no rigidity. No hepatosplenomegaly. CENTRAL NERVOUS SYSTEM: The patient is alert, awake, oriented x 3, nonfocal on examination. Cranial nerves II through XII grossly intact. Sensory and motor system is within normal limits. EXTREMITIES: No cyanosis, no clubbing, no edema. CURRENT MEDICATIONS: Include as follows: Hydralazine 100 mg p.o. t.i.d., losartan 100 mg p.o. daily , Crestor 10 mg at bedtime, aspirin 81 mg daily, metoprolol 25 mg p.o. daily, Nephro-Anny 1 tablet da latisha, amlodipine 10 mg daily, insulin aspart for sliding scale, Pepcid 20 mg p.o. daily, Rocephin 1 gr am daily, Spiriva 18 mcg daily, Amaryl 2 mg p.o. t.i.d. LABORATORY DATA: MRSA screening from the nares are negative from 07/27 and 07/28. As of 08/01/2016, sodi um 140, potassium 3.9, chloride 98, CO2 23, BUN 87, creatinine 2.8, glucose 125, calcium 7.8. SUMMARY: The patient is an 81-year-old elderly male with a history of hypertension, diabetes, hyperl ipidemia, proteinuria, chronic kidney disease, anemia, status post transfusion, status post EGD and c olonoscopy, consistent with internal hemorrhoids and bleeding, angiodysplasia, and status post cauter ization. 1. Acute renal failure on chronic kidney disease. Renal function is slowly improving. 2. Hypertension. 3. Anemia secondary to slow upper gastrointestinal bleed from the angiodysplasia. 4. Congestive heart failure. We will add Lasix 40 mg p.o. daily starting from tomorrow if patient c an take by mouth. Otherwise, we will give Lasix 40 mg IV daily. Repeat BMP, CBC in a.m. We will fo llow with you. Thank you for allowing me to participate in your patient's care. Aamir Galeano MD cc: [id number] TT: 08/01/2016 21:17:05 Confirmation # [id number] Dictation # [id number]
[2016-08-02] MEDS: (Novolog) Insulin Aspart, Recombinant 100 u/ml 10 ml vial SC SCH ×3 (07:59→17:45)
[2016-08-02 08:27] LABS: HEMATOCRIT 38.1 % (35.0-51.0); MEAN CELL VOLUME 66.9 fL (80.0-94.0); MEAN CORPUSCULAR HEMOGLOBIN 20.6 pg (27.0-31.0); MEAN CORPUSCULAR HGB CONC 30.8 g/dL (33.0-37.0); MEAN PLATELET VOLUME 8.9 fL (7.2-11.7); RED CELL DISTRIBUTION WIDTH 23.4 % (11.5-14.5); WHITE BLOOD COUNT 8.3 K/uL (4.8-10.8)
[2016-08-02] MEDS: Tiotropium 18 mcg Cap For Inhalation INH SCH (08:31)
[2016-08-02 08:38] LABS: POTASSIUM 3.7 mmol/L (3.6-5.2)
[2016-08-02 08:41] LABS: CALCIUM 8.4 mg/dl (8.6-10.4)
[2016-08-02] MEDS: Multivitamin Vitamin B Complex (Nephro-Vite) Tab PO SCH (10:15)
--- NOTE | 2016-08-02 11:00 | CP.PCM.PN ---
Subjective - Date & Time of Evaluation Date of Evaluation: 08/02/16 Time of Evaluation: 10:00 - Subjective Subjective: Patient seen, in bed feels weak, does not feel good to get out of bed, no abdominal pain , no discolored stool no chest pain breathing is stable at bedside Objective - Vital Signs/Intake and Output Vital Signs (last 24 hours): Temp Pulse Resp BP Pulse Ox 98.3 F 81 20 161/61 H 94 L 08/02/16 09:04 08/02/16 09:04 08/02/16 09:04 08/02/16 10:15 08/02/16 09:04 Intake and Output: 08/02/16 08/02/16 06:59 18:59 Intake Total 600 Output Total 800 Balance -200 - Medications Medications: Current Medications Amlodipine Besylate (Norvasc) 10 mg PO DAILY [facility] Last Admin: 08/02/16 10:16 Dose: 10 mg Aspirin (Ecotrin) 81 mg PO DAILY [facility] Last Admin: 08/02/16 10:16 Dose: 81 mg Famotidine (Pepcid) 20 mg PO DAILY [facility] Last Admin: 08/02/16 10:16 Dose: 20 mg Furosemide (Lasix) 40 mg PO DAILY [facility] Last Admin: 08/02/16 10:15 Dose: 40 mg Glimepiride (Amaryl) 2 mg PO TID [facility] Last Admin: 08/02/16 10:16 Dose: 2 mg Hydralazine HCl (Apresoline) 100 mg PO TID [facility] Last Admin: 08/02/16 07:56 Dose: 100 mg Ceftriaxone Sodium 1 gm/ (Sodium Chloride) 100 mls @ 100 mls/hr IVPB Q24H [facility] Last Admin: 08/02/16 10:41 Dose: 100 mls/hr Insulin Aspart (Novolog) 0 unit SC TIDAC [facility] PRN Reason: Protocol Last Admin: 08/02/16 07:59 Dose: Not Given Losartan Potassium (Cozaar) 100 mg PO DAILY [facility] Last Admin: 08/02/16 10:16 Dose: 100 mg Metoprolol Tartrate (Lopressor) 25 mg PO DAILY [facility] Last Admin: 08/02/16 10:15 Dose: 25 mg Rosuvastatin Calcium (Crestor) 10 mg PO HS [facility] Last Admin: 08/01/16 21:36 Dose: 10 mg Tiotropium [place] (Spiriva) 18 mcg INH RQ24 [facility] Last Admin: 08/02/16 08:31 Dose: 18 mcg Vitamin B Complex/Vit C/Folic Acid (Nephro-Anny) 1 tab PO DAILY [facility] Last Admin: 08/02/16 10:15 Dose: 1 tab - Labs Labs: 08/02/16 08:17 08/02/16 08:17 PT 12.5 SECONDS (9.7-12.2) H 07/28/16 06:18 INR 1.1 07/28/16 06:18 APTT 38 SECONDS (21-34) H 07/28/16 06:18 - Constitutional Appears: Non-toxic ( but feels weak , stays in bed ) - Head Exam Head Exam: ATRAUMATIC, NORMOCEPHALIC - Eye Exam Eye Exam: Normal appearance. absent: Nystagmus - ENT Exam ENT Exam: Mucous Membranes Moist - Neck Exam Neck Exam: Full ROM. absent: Tenderness - Respiratory Exam Respiratory Exam: Decreased Breath Sounds, NORMAL BREATHING PATTERN - Cardiovascular Exam Cardiovascular Exam: REGULAR RHYTHM - Extremities Exam Extremities Exam: Full ROM. absent: Pedal Edema, Tenderness - Neurological Exam Neurological Exam: Alert, Awake, Normal Gait, Oriented x3 - Psychiatric Exam Psychiatric exam: Normal Affect, Normal Mood - Skin Skin Exam: Intact, Normal Color Assessment and Plan - Assessment and Plan (Free Text) Assessment: Patient with multiple medical problems anemia s/p transfusion improved s/p endoscopy COPD improving CHF improving Hypertension on ehigh side- adjust meds feeling weak, post prep liquid diets will observe monitor today
--- NOTE | 2016-08-02 11:28 | CP.PCM.PN ---
Subjective - Date & Time of Evaluation Date of Evaluation: 08/02/16 Time of Evaluation: 11:40 - Subjective Subjective: Patient seen and examined at bedside, no acute distress, no acute events overnight. The pt reports that he feels a bit weak but breathing is much better. Pt denies dyspnea, chest pain, palpitations, headache, nausea, vomiting , fever, chills, at this time. Objective - Vital Signs/Intake and Output Vital Signs (last 24 hours): Temp Pulse Resp BP Pulse Ox 98.3 F 81 20 161/61 H 94 L 08/02/16 09:04 08/02/16 09:04 08/02/16 09:04 08/02/16 10:15 08/02/16 09:04 Intake and Output: 08/02/16 08/02/16 06:59 18:59 Intake Total 600 Output Total 800 Balance -200 - Medications Medications: Current Medications Amlodipine Besylate (Norvasc) 10 mg PO DAILY [facility] Last Admin: 08/02/16 10:16 Dose: 10 mg Aspirin (Ecotrin) 81 mg PO DAILY [facility] Last Admin: 08/02/16 10:16 Dose: 81 mg Famotidine (Pepcid) 20 mg PO DAILY [facility] Last Admin: 08/02/16 10:16 Dose: 20 mg Furosemide (Lasix) 40 mg PO DAILY [facility] Last Admin: 08/02/16 10:15 Dose: 40 mg Glimepiride (Amaryl) 2 mg PO TID [facility] Last Admin: 08/02/16 10:16 Dose: 2 mg Hydralazine HCl (Apresoline) 100 mg PO TID [facility] Last Admin: 08/02/16 11:09 Dose: Not Given Ceftriaxone Sodium 1 gm/ (Sodium Chloride) 100 mls @ 100 mls/hr IVPB Q24H [facility] Last Admin: 08/02/16 10:41 Dose: 100 mls/hr Insulin Aspart (Novolog) 0 unit SC TIDAC [facility] PRN Reason: Protocol Last Admin: 08/02/16 07:59 Dose: Not Given Losartan Potassium (Cozaar) 100 mg PO DAILY [facility] Last Admin: 08/02/16 10:16 Dose: 100 mg Metoprolol Tartrate (Lopressor) 25 mg PO BID [facility] Rosuvastatin Calcium (Crestor) 10 mg PO HS [facility] Last Admin: 04/04/17 21:36 Dose: 10 mg Tiotropium [place] (Spiriva) 18 mcg INH RQ24 [facility] Last Admin: 08/02/16 08:31 Dose: 18 mcg Vitamin B Complex/Vit C/Folic Acid (Nephro-Anny) 1 tab PO DAILY [facility] Last Admin: 08/02/16 10:15 Dose: 1 tab - Labs Labs: 08/02/16 08:17 08/02/16 08:17 PT 12.5 SECONDS (9.7-12.2) H 07/28/16 06:18 INR 1.1 07/28/16 06:18 APTT 38 SECONDS (21-34) H 07/28/16 06:18 - Constitutional Appears: Well, Non-toxic, No Acute Distress - Head Exam Head Exam: ATRAUMATIC, NORMAL INSPECTION - Eye Exam Eye Exam: Normal appearance - Respiratory Exam Respiratory Exam: Clear to Ausculation Bilateral - Neurological Exam Neurological Exam: Alert, Awake, Oriented x3 - Skin Skin Exam: Dry, Normal Color, Warm Assessment and Plan (1) SOB (shortness of breath) Assessment & Plan: Patient is stable from pulm standpoint, cleared for discharge. Follow up if necessary. Patient COPD improving, continue with steroid treatments Continue recommendations from medicine team Status: Acute
--- NOTE | 2016-08-02 17:57 | CP.PCM.PN ---
Subjective - Date & Time of Evaluation Date of Evaluation: 08/02/16 Time of Evaluation: 17:57 - Subjective Subjective: pt seen and examined, follow up consult is dictated #[id number] Objective - Vital Signs/Intake and Output Vital Signs (last 24 hours): Temp Pulse Resp BP Pulse Ox 98.0 F 68 20 168/65 H 96 08/02/16 16:12 08/02/16 16:12 08/02/16 16:12 08/02/16 17:45 08/02/16 16:12 Intake and Output: 08/02/16 08/02/16 06:59 18:59 Intake Total 600 400 Output Total 800 Balance -200 400 - Medications Medications: Current Medications Amlodipine Besylate (Norvasc) 10 mg PO DAILY [facility] Last Admin: 08/02/16 10:16 Dose: 10 mg Aspirin (Ecotrin) 81 mg PO DAILY [facility] Last Admin: 08/02/16 10:16 Dose: 81 mg Famotidine (Pepcid) 20 mg PO DAILY [facility] Last Admin: 08/02/16 10:16 Dose: 20 mg Furosemide (Lasix) 40 mg PO DAILY [facility] Last Admin: 08/02/16 10:15 Dose: 40 mg Glimepiride (Amaryl) 2 mg PO TID [facility] Last Admin: 08/02/16 17:45 Dose: 2 mg Hydralazine HCl (Apresoline) 100 mg PO TID [facility] Last Admin: 08/02/16 17:44 Dose: 100 mg Ceftriaxone Sodium 1 gm/ (Sodium Chloride) 100 mls @ 100 mls/hr IVPB Q24H [facility] Last Admin: 08/02/16 10:41 Dose: 100 mls/hr Insulin Aspart (Novolog) 0 unit SC TIDAC [facility] PRN Reason: Protocol Last Admin: 08/02/16 17:45 Dose: 6 unit Losartan Potassium (Cozaar) 100 mg PO DAILY [facility] Last Admin: 08/02/16 10:16 Dose: 100 mg Metoprolol Tartrate (Lopressor) 25 mg PO BID [facility] Last Admin: 08/02/16 17:45 Dose: 25 mg Rosuvastatin Calcium (Crestor) 10 mg PO HS [facility] Last Admin: 08/01/16 21:36 Dose: 10 mg Tiotropium [place] (Spiriva) 18 mcg INH RQ24 [facility] Last Admin: 04/05/17 08:31 Dose: 18 mcg Vitamin B Complex/Vit C/Folic Acid (Nephro-Anny) 1 tab PO DAILY [facility] Last Admin: 08/02/16 10:15 Dose: 1 tab - Labs Labs: 08/02/16 08:17 08/02/16 08:17 PT 12.5 SECONDS (9.7-12.2) H 07/28/16 06:18 INR 1.1 07/28/16 06:18 APTT 38 SECONDS (21-34) H 07/28/16 06:18
--- NOTE | 2016-08-02 22:21 | CP.PCM.PN ---
Subjective - Date & Time of Evaluation Date of Evaluation: 08/02/16 Time of Evaluation: 12:05 - Subjective Subjective: Patient without cardiac events Objective - Vital Signs/Intake and Output Vital Signs (last 24 hours): Temp Pulse Resp BP Pulse Ox 98.0 F 78 20 168/65 H 96 08/02/16 16:12 08/02/16 17:00 08/02/16 16:12 08/02/16 17:45 08/02/16 16:12 Intake and Output: 08/02/16 08/03/16 18:59 06:59 Intake Total 400 Balance 400 - Medications Medications: Current Medications Amlodipine Besylate (Norvasc) 10 mg PO DAILY [facility] Last Admin: 08/02/16 10:16 Dose: 10 mg Aspirin (Ecotrin) 81 mg PO DAILY [facility] Last Admin: 08/02/16 10:16 Dose: 81 mg Famotidine (Pepcid) 20 mg PO DAILY [facility] Last Admin: 08/02/16 10:16 Dose: 20 mg Furosemide (Lasix) 40 mg PO DAILY [facility] Last Admin: 08/02/16 10:15 Dose: 40 mg Glimepiride (Amaryl) 2 mg PO TID [facility] Last Admin: 08/02/16 17:45 Dose: 2 mg Hydralazine HCl (Apresoline) 100 mg PO TID [facility] Last Admin: 08/02/16 17:44 Dose: 100 mg Ceftriaxone Sodium 1 gm/ (Sodium Chloride) 100 mls @ 100 mls/hr IVPB Q24H [facility] Last Admin: 08/02/16 10:41 Dose: 100 mls/hr Insulin Aspart (Novolog) 0 unit SC TIDAC [facility] PRN Reason: Protocol Last Admin: 08/02/16 17:45 Dose: 6 unit Losartan Potassium (Cozaar) 100 mg PO DAILY [facility] Last Admin: 08/02/16 10:16 Dose: 100 mg Metoprolol Tartrate (Lopressor) 25 mg PO BID [facility] Last Admin: 08/02/16 17:45 Dose: 25 mg Rosuvastatin Calcium (Crestor) 10 mg PO HS [facility] Last Admin: 08/02/16 21:14 Dose: 10 mg Tiotropium [place] (Spiriva) 18 mcg INH RQ24 [facility] Last Admin: 08/02/16 08:31 Dose: 18 mcg Vitamin B Complex/Vit C/Folic Acid (Nephro-Anny) 1 tab PO DAILY [facility] Last Admin: 08/02/16 10:15 Dose: 1 tab - Labs Labs: 08/02/16 08:17 08/02/16 08:17 PT 12.5 SECONDS (9.7-12.2) H 07/28/16 06:18 INR 1.1 07/28/16 06:18 APTT 38 SECONDS (21-34) H 07/28/16 06:18
--- NOTE | 2016-08-02 22:53 | PN ---
DATE: 08/02/2016 The patient is located in room 658, bed B. REQUESTED BY: Dr. Ana Noel. REASON FOR FOLLOWUP: Acute renal failure, chronic kidney disease stage IV. The patient is an 81-year-old elderly [place] male with a history of long- standing hypertension, diabetes, hyperlipidemia, chronic kidney disease stage IV , proteinuria, coronary artery disease status post stent placement, CHF, who was admitted with the chief complaints of shortness of breath. The patient is being treated for possible CONGESTIVE HEART FAILURE, and also found to have a low H and H status post transfusion of 2 units packed RBC. Subsequently, the patient underwent EGD and colonoscopy; found to have internal hemorrhoids and bleeding angiodysplasia in the stomach, status post cauterization. The patient was initially placed on clear liquids after cauterization. Now the patient is on regular diet. The patient is tolerating without any complications. Denies any chest pain, palpitations. Denies any fever or cough. VITAL SIGNS: As follows: Blood pressure 168/65, pulse 78, respirations 20, temperature 98, saturation 96%. Height 5 feet 3 inches, and weight is 150 pounds. HENT AND PHYSICAL EXAMINATION: The patient is an 81-year-old elderly [place] male, well built, well nourished, not in acute distress. HENT: Pupils normal, reactive to light and accommodation. Conjunctivae pink, sclerae anicteric. Tongue is moist. Trachea is midline. LUNGS: Symmetric on both sides. Bilateral breath sounds present. Clear on auscultation. CARDIOVASCULAR SYSTEM: [place] in the fifth intercostal space midclavicular line. S1 and S2 audible. No murmur or gallop. ABDOMEN: Normal in appearance, soft, tympanic. No guarding, no rigidity. No hepatosplenomegaly. CENTRAL NERVOUS SYSTEM: The patient is alert, awake, oriented x 3, nonfocal on examination. Cranial nerves II-XII grossly intact. Sensory and motor system is within normal limits. EXTREMITIES: No cyanosis, no clubbing, no edema. CURRENT MEDICATIONS: Include as follows: Hydralazine 100 mg p.o. t.i.d., losartan 100 mg p.o. daily, Crestor 10 mg at bedtime, aspirin 81 mg daily, Lasix 40 mg daily, and metoprolol 25 mg p.o. b.i.d., Nephro-Anny 1 tablet daily , amlodipine 10 mg p.o. daily, and famotidine 20 mg daily, Rocephin 1 g daily, and Spiriva 18 mcg inhaler daily, and glimepiride 2 mg p.o. t.i.d. LABORATORY DATA: Include as follows as of 08/02/2016: WBC 8.3, hemoglobin 11.7 , hematocrit is 38.1, and MCV is 66.9, platelets 174. Sodium 138, potassium 3.7 , chloride 98, CO2 of 29, BUN 55, creatinine 2.2, glucose 104, calcium 8.4. In summary, the patient is an 81-year-old elderly [place] male with a history of long-standing hypertension, diabetes, hyperlipidemia, coronary artery disease status post stents, chronic kidney disease stage IV, admitted with shortness of breath. 1. Acute on chronic kidney disease secondary to vigorous diuresis and steroids. Renal function is slowly improving; almost back to his baseline between 2 to 2.5. 2. Hypertension. Blood pressure is stable. 3. Status post upper gastrointestinal bleed. H and H is stable after EGD and cauterization of the angiodysplasia Will continue gentle diuresis, 40 mg Lasix, and titrate as needed. Will follow with you. Thank you for allowing me to participate in your patient's care, and the patient is stable from the renal standpoint to DC in a.m. Aamir Galeano MD cc: [id number] TT: 08/02/2016 22:53:05 Confirmation # [id number] Dictation # [id number] MTDD
[2016-08-03] MEDS: (Novolog) Insulin Aspart, Recombinant 100 u/ml 10 ml vial SC SCH ×3 (08:15→17:30)
[2016-08-03] MEDS: Multivitamin Vitamin B Complex (Nephro-Vite) Tab PO SCH (09:14)
[2016-08-03] MEDS: Tiotropium 18 mcg Cap For Inhalation INH SCH (10:13)
[2016-08-03 15:32] VITALS: BP 149/68; RESP 20; TEMP 98.3; O2SAT 94
--- NOTE | 2016-08-03 19:03 | CP.PCM.PN ---
Subjective - Date & Time of Evaluation Date of Evaluation: 08/03/16 Time of Evaluation: 11:15 - Subjective Subjective: Patient seen at bedside. patient had walkimg , no complaints no chets pain is ready to go home discussion of medications to call the clinic will RTC on sunday or sunday Objective - Vital Signs/Intake and Output Vital Signs (last 24 hours): Temp Pulse Resp BP Pulse Ox 98.3 F 63 20 149/68 94 L 08/03/16 15:31 08/03/16 15:31 08/03/16 15:31 08/03/16 17:30 08/03/16 15:31 Intake and Output: 08/03/16 08/03/16 06:59 18:59 Intake Total 360 460 Output Total 0 Balance 360 460 - Medications Medications: Current Medications Amlodipine Besylate (Norvasc) 10 mg PO DAILY [facility] Last Admin: 08/03/16 09:13 Dose: 10 mg Aspirin (Ecotrin) 81 mg PO DAILY [facility] Last Admin: 08/03/16 09:14 Dose: 81 mg Famotidine (Pepcid) 20 mg PO DAILY [facility] Last Admin: 08/03/16 09:13 Dose: 20 mg Furosemide (Lasix) 40 mg PO DAILY [facility] Last Admin: 08/03/16 09:14 Dose: 40 mg Glimepiride (Amaryl) 2 mg PO TID [facility] Last Admin: 08/03/16 17:30 Dose: 2 mg Hydralazine HCl (Apresoline) 100 mg PO Q8H [facility] Last Admin: 08/03/16 14:30 Dose: 100 mg Ceftriaxone Sodium 1 gm/ (Sodium Chloride) 100 mls @ 100 mls/hr IVPB Q24H [facility] Last Admin: 08/03/16 12:18 Dose: 100 mls/hr Insulin Aspart (Novolog) 0 unit SC TIDAC [facility] PRN Reason: Protocol Last Admin: 08/03/16 17:30 Dose: 4 unit Losartan Potassium (Cozaar) 100 mg PO DAILY [facility] Last Admin: 08/03/16 09:12 Dose: 100 mg Metoprolol Tartrate (Lopressor) 50 mg PO QAM [facility] Metoprolol Tartrate (Lopressor) 25 mg PO QPM [facility] Last Admin: 08/03/16 17:30 Dose: 25 mg Rosuvastatin Calcium (Crestor) 10 mg PO HS [facility] Last Admin: 08/02/16 21:14 Dose: 10 mg Tiotropium [place] (Spiriva) 18 mcg INH RQ24 [facility] Last Admin: 08/03/16 10:13 Dose: Not Given Vitamin B Complex/Vit C/Folic Acid (Nephro-Anny) 1 tab PO DAILY [facility] Last Admin: 08/03/16 09:14 Dose: 1 tab - Labs Labs: 08/02/16 08:17 08/02/16 08:17 PT 12.5 SECONDS (9.7-12.2) H 07/28/16 06:18 INR 1.1 07/28/16 06:18 APTT 38 SECONDS (21-34) H 07/28/16 06:18 - Constitutional Appears: Well, Non-toxic - Head Exam Head Exam: ATRAUMATIC, NORMOCEPHALIC - Eye Exam Eye Exam: Normal appearance - ENT Exam ENT Exam: Mucous Membranes Moist - Neck Exam Neck Exam: Full ROM. absent: Tenderness - Respiratory Exam Respiratory Exam: Decreased Breath Sounds, NORMAL BREATHING PATTERN - Cardiovascular Exam Cardiovascular Exam: REGULAR RHYTHM - GI/Abdominal Exam GI & Abdominal Exam: Soft, Normal Bowel Sounds. absent: Tenderness - Extremities Exam Extremities Exam: Full ROM, Normal Inspection. absent: Tenderness - Neurological Exam Neurological Exam: Alert, Awake, Normal Gait, Oriented x3 - Skin Skin Exam: Intact, Normal Color Assessment and Plan - Assessment and Plan (Free Text) Assessment: Patient with CHF Anemia COPD =. Hypertension improved Diabetes and creatinine to continue to monitor and will adjust medication as out patient discussed complaince to [facility] and meds patient to come to clinic sunday or sunday
--- NOTE | 2016-08-03 19:06 | CP.PCM.PN ---
Subjective - Date & Time of Evaluation Date of Evaluation: 08/03/16 Time of Evaluation: 19:05 - Subjective Subjective: pt seen and examined, follow up consult is dictated #[id number] Objective - Vital Signs/Intake and Output Vital Signs (last 24 hours): Temp Pulse Resp BP Pulse Ox 98.3 F 63 20 149/68 94 L 08/03/16 15:31 08/03/16 15:31 08/03/16 15:31 08/03/16 17:30 08/03/16 15:31 Intake and Output: 08/03/16 08/04/16 18:59 06:59 Intake Total 460 Output Total 0 Balance 460 - Medications Medications: Current Medications Amlodipine Besylate (Norvasc) 10 mg PO DAILY [facility] Last Admin: 08/03/16 09:13 Dose: 10 mg Aspirin (Ecotrin) 81 mg PO DAILY [facility] Last Admin: 08/03/16 09:14 Dose: 81 mg Famotidine (Pepcid) 20 mg PO DAILY [facility] Last Admin: 08/03/16 09:13 Dose: 20 mg Furosemide (Lasix) 40 mg PO DAILY [facility] Last Admin: 08/03/16 09:14 Dose: 40 mg Glimepiride (Amaryl) 2 mg PO TID [facility] Last Admin: 08/03/16 17:30 Dose: 2 mg Hydralazine HCl (Apresoline) 100 mg PO Q8H [facility] Last Admin: 08/03/16 14:30 Dose: 100 mg Ceftriaxone Sodium 1 gm/ (Sodium Chloride) 100 mls @ 100 mls/hr IVPB Q24H [facility] Last Admin: 08/03/16 12:18 Dose: 100 mls/hr Insulin Aspart (Novolog) 0 unit SC TIDAC [facility] PRN Reason: Protocol Last Admin: 08/03/16 17:30 Dose: 4 unit Losartan Potassium (Cozaar) 100 mg PO DAILY [facility] Last Admin: 08/03/16 09:12 Dose: 100 mg Metoprolol Tartrate (Lopressor) 50 mg PO QAM [facility] Metoprolol Tartrate (Lopressor) 25 mg PO QPM [facility] Last Admin: 08/03/16 17:30 Dose: 25 mg Rosuvastatin Calcium (Crestor) 10 mg PO HS [facility] Last Admin: 08/02/16 21:14 Dose: 10 mg Tiotropium [place] (Spiriva) 18 mcg INH RQ24 [facility] Last Admin: 08/03/16 10:13 Dose: Not Given Vitamin B Complex/Vit C/Folic Acid (Nephro-Anny) 1 tab PO DAILY [facility] Last Admin: 08/03/16 09:14 Dose: 1 tab - Labs Labs: 08/02/16 08:17 08/02/16 08:17 PT 12.5 SECONDS (9.7-12.2) H 07/28/16 06:18 INR 1.1 07/28/16 06:18 APTT 38 SECONDS (21-34) H 07/28/16 06:18
--- NOTE | 2016-08-03 19:06 | CP.PCM.DIS ---
Provider - Provider Date of Admission: 07/27/16 00:43 Attending physician: Ana Noel MD Time Spent in preparation of Discharge (in minutes): 30 Hospital Course - Lab Results Lab Results: Micro Results 07/28/16 Unknown Naris MRSA Culture - Final MRSA NOT DETECTED 07/27/16 09:23 Naris MRSA Culture (Admit) - Final MRSA NOT DETECTED Most Recent Lab Values WBC 8.3 K/uL (4.8-10.8) 08/02/16 08: RBC 5.70 Mil/uL (4.40-5.90) 08/02/16 08:17 Hgb 11.7 g/dL (12.0-18.0) L 08/02/16 08: Hct 38.1 % (35.0-51.0) 08/02/16 08: MCV 66.9 fL (80.0-94.0) L 08/02/16 08: MCH 20.6 pg (27.0-31.0) L 08/02/16 08: MCHC 30.8 g/dL (33.0-37.0) L 08/02/16 08:17 RDW 23.4 % (11.5-14.5) H 08/02/16 08:17 Plt Count 174 K/uL (130-400) 08/02/16 08:17 MPV 8.9 fL (7.2-11.7) 08/02/16 08:17 Neut % (Auto) 67.9 % (50.0-75.0) 07/26/16 23:33 Lymph % (Auto) 16.3 % (20.0-40.0) L 07/26/16 23:33 [place] % (Auto) 11.3 % (0.0-10.0) H 07/26/16 23:33 Eos % (Auto) 3.8 % (0.0-4.0) 07/26/16 23:33 Baso % (Auto) 0.7 % (0.0-2.0) 07/26/16 23:33 Neut # 6.4 K/uL (1.8-7.0) 07/26/16 23:33 Lymph # 1.5 K/uL (1.0-4.3) 07/26/16 23:33 [place] # 1.1 K/uL (0.0-0.8) H 07/26/16 23:33 Eos # 0.4 K/uL (0.0-0.7) 07/26/16 23:33 Baso # 0.1 K/uL (0.0-0.2) 07/26/16 23:33 Retic Count 1.5 % (0.5-1.5) 07/28/16 09:11 Hemoglobin A 96.9 Percent (>96.0) 07/28/16 09:11 Hemoglobin A2 2.1 Percent (1.8-3.5) 07/28/16 09:11 Hemoglobin C 0.0 Percent (0.0-0.0) 07/28/16 09:11 Hemoglobin F () <1.0 Percent (<2.0) 07/28/16 09:11 Hemoglobin S 0.0 Percent (0.0-0.0) 07/28/16 09:11 Variant Hemoglobin 0.0 Percent (0.0-0.0) 07/28/16 09:11 Hemoglobinopathy Red Blood Count 4.47 Mill/mcL (4.20-5.80) 07/28/16 09:11 Hemoglobinopathy Hct 29.1 % (38.5-50.0) L 07/28/16 09:11 Hemoglobinopathy Hgb 9.0 g/dL (13.2-17.1) L 07/28/16 09:11 Hemoglobinopathy MCV 65.2 fL (80.0-100.0) L 07/28/16 09:11 Hemoglobinopathy MCH 20.2 pg (27.0-33.0) L 07/28/16 09:11 Hemoglobinopathy RDW 20.0 % (11.0-15.0) H 07/28/16 09:11 Hemoglobinopathy Interp See note (()) 07/28/16 09:11 PT 12.5 SECONDS (9.7-12.2) H 07/28/16 06:18 INR 1.1 07/28/16 06:18 APTT 38 SECONDS (21-34) H 07/28/16 06:18 D-Dimer, Quantitative 444 ng/mlDDU (0-243) H 07/26/16 23:33 Sodium 138 mmol/L (132-148) 08/02/16 08:17 Potassium 3.7 mmol/L (3.6-5.2) 08/02/16 08:17 Chloride 98 mmol/L (98-107) 08/02/16 08:17 Carbon Dioxide 25 mmol/L (22-30) 08/02/16 08:17 Anion Gap 19 (10-20) 08/02/16 08:17 BUN 55 mg/dL (9-20) H 08/02/16 08:17 Creatinine 2.2 MG/DL (0.8-1.5) H 08/02/16 08:17 Est GFR ( Amer) 35 08/02/16 08:17 Est GFR (Non-Af Amer) 29 08/02/16 08:17 POC Glucose (mg/dL) 238 mg/dL (65-110) H 08/03/16 16:09 Random Glucose 104 mg/dL (75-110) 08/02/16 08:17 Hemoglobin A1c 7.8 % (4.2-6.5) H 07/27/16 20:21 Calcium 8.4 mg/dl (8.6-10.4) L 08/02/16 08:17 Phosphorus 5.4 mg/dL (2.5-4.5) H 07/28/16 06:18 Iron 103 ug/dL (49-181) 07/27/16 20:21 TIBC 278 ug/dL (250-450) 07/27/16 20:21 % Saturation 37 (20-55) 07/27/16 20:21 Ferritin 279.0 ng/mL 07/28/16 06:18 Total Bilirubin 0.4 mg/dL (0.2-1.3) 07/26/16 23:33 AST 28 U/L (17-59) 07/26/16 23:33 ALT 34 U/L (21-72) 07/26/16 23:33 Alkaline Phosphatase 66 U/L (38-126) 07/26/16 23:33 Total Creatine Kinase 176 U/L (55-170) H 07/28/16 09:11 CK-MB (Mass) 2.56 ng/mL (0.0-3.38) 07/28/16 09:11 Troponin I 0.0150 ng/mL (0.00-0.120) 07/26/16 23:33 Troponin I, Quant 0.0270 ng/mL (0.00-0.120) 07/28/16 09:11 NT-Pro-B Natriuret Pep 4360 pg/mL (0-900) H 07/28/16 09:11 Total Protein 7.1 g/dL (6.3-8.3) 07/26/16 23:33 Albumin 4.2 g/dL (3.5-5.0) 07/26/16 23:33 Globulin 2.9 gm/dL (2.2-3.9) 07/26/16 23:33 Albumin/Globulin Ratio 1.4 (1.0-2.1) 07/26/16 23:33 Vitamin B12 > 1000 pg/mL (239-931) H 07/28/16 09:11 Folate > 20.0 ng/mL 07/28/16 09:11 PTH Intact Whole Molec 64 pg/mL (14-64) 07/28/16 06:18 Stool Occult Blood Positive (NEGATIVE) H 07/27/16 18:15 Blood Type A POSITIVE 07/30/16 20:26 Antibody Screen Negative 07/30/16 20:26 - Hospital Course Hospital Course: patient admitted for acute SOB vq sacn indetreminate- found to have wheezing copd exacerbation and low h/h and fluid retention , patient had transfusion, lasix, copd treatment and patient improved, patient got weak after colon prep from liquid diet but improved - wants home Discharge Exam - Head Exam Head Exam: ATRAUMATIC, NORMOCEPHALIC - Eye Exam Eye Exam: Normal appearance. absent: Nystagmus - ENT Exam ENT Exam: Mucous Membranes Moist - Neck Exam Neck exam: Full Rom - Respiratory Exam Respiratory Exam: Decreased Breath Sounds, Clear to PA & Lateral, NORMAL BREATHING PATTERN - Cardiovascular Exam Cardiovascular Exam: REGULAR RHYTHM - GI/Abdominal Exam GI & Abdominal Exam: Normal Bowel Sounds, Soft. absent: Tenderness - Extremities Exam Extremities exam: full ROM - Back Exam Back exam: absent: tenderness - Neurological Exam Neurological exam: Alert, Normal Gait, Oriented x3 - Psychiatric Exam Psychiatric exam: Normal Affect, Normal Mood - Skin Skin Exam: Intact, Normal Color Discharge Plan - Follow Up Plan Condition: STABLE Disposition: HOME/ ROUTINE Instructions: Heart Failure (DC), Colonoscopy (DC), Heart Healthy Diet (DC), Upper Endoscopy (DC) Referrals: Hector Alicia MD [Staff Provider] - Rogerio Muñiz MD [Staff Provider] - Ana Noel MD [Medical Doctor] - Elias Wellington MD [Staff Provider] -
[2016-08-03 21:43] VITALS: PULSE 65
--- NOTE | 2016-08-04 01:28 | PN ---
DATE: 08/03/2016 LOCATION: The patient is located in room 658, bed B. REQUESTED BY: Dr. Ana Noel. REASON FOR FOLLOWUP: Acute renal failure, chronic kidney disease. HISTORY OF PRESENT ILLNESS: The patient is an 81-year-old elderly [place]amese male with a history of longstanding hypertension, diabetes, hyperlipidemia, proteinuria, chronic kidney disease stage IV, coronary artery disease status post stent placement, who was initially admitted with shortness of breath and found to have CHF and anemia and upper gastrointestinal bleed, status post esophagogastroduodenoscopy and colonoscopy consistent with UGI bledd sec to bleeding angiodysplasia, status post transfusion of 2 units packed RBC on admission. The patient is feeling much better, not in acute distress and denies any headache, dizziness. Denies any chest pain, palpitation. Denies any fever, cough. No nausea, vomiting, diarrhea and tolerating regular diet. PHYSICAL EXAMINATION: VITAL SIGNS: As follows: Blood pressure 149/68, pulse 63, respirations 20, temperature 98.3, saturation 94%. Height 5 feet 3 inches and weight is 150 pounds. GENERAL: The patient is an 81-year-old elderly male, moderately built, moderately nourished, not in acute distress. HEENT: Pupils normal, reactive to light and accommodation. Conjunctivae pink. Sclerae anicteric. Tongue is moist. NECK: Trachea is midline. LUNGS: Symmetric on both sides. Bilateral breath sounds present. Clear on auscultation. CARDIOVASCULAR: Moss in the fifth intercostal space midclavicular line. S1 and S2 audible. No murmur or gallop. ABDOMEN: Normal in appearance, soft, tympanic. No guarding, no rigidity. No hepatosplenomegaly. CENTRAL NERVOUS SYSTEM: The patient is alert, awake, oriented x 3, nonfocal on examination. Cranial nerves II through XII grossly intact. Sensory and motor system is within normal limits. EXTREMITIES: No cyanosis, no clubbing, no edema. CURRENT MEDICATIONS: Include as follows, glimepiride 2 mg p.o. t.i.d., hydralazine 100 mg p.o. t.i.d., Rocephin 1 gram daily and losartan 100 mg p.o. daily, Crestor 10 mg at bedtime, Ecotrin 81 mg daily, Lasix 40 mg p.o. daily, Lopressor 25 mg p.o. b.i.d., Nephro-Anny 1 tablet daily, amlodipine 10 mg daily , NovoLog for sliding scale, Pepcid 20 mg p.o. daily, Spiriva 18 mcg inhaler q. 24 hours. LABORATORY DATA: Includes as follows: Accu-Cheks 137, 201 and 238. As of 08/2016, sodium 138, potassium 3.7, chloride 98, CO2 25, BUN 55, creatinine 2.2 , glucose is 104 and calcium 8.4. SUMMARY: The patient is an 81-year-old elderly male with hypertension, diabetes , hyperlipidemia, coronary artery disease, proteinuria, chronic kidney disease, anemia status post gastrointestinal bleed secondary to angiodysplasia and status post EGD, colonoscopy and cauterization of angiodysplasia. 1. Acute renal failure and chronic kidney disease. Renal function is improving back to his baseline. 2. Hypertension. Blood pressure is stable. 3. Congestive heart failure. The lungs are clear. Continue Lasix 40 mg daily. 4. Status post anemia secondary to gastrointestinal bleed. H and H are stable. 5. Continue nephro care now and Nephro-Anny 1 tablet daily. The patient can be discharged from the renal standpoint and follow up in the office in 1 month. Thank you for allowing me to participate in your patient's care. Case discussed with Dr. Noel and also Dr. Cortés, mechanotherapist, in rounds. Aamir Galeano MD cc: [id number] TT: 08/04/2016 01:27:55 Confirmation # [id number] Dictation # [id number] adrianna GIORDANO
--- NOTE | 2016-08-05 17:13 | PCM.HF ---
Heart Failure Core Measure - Heart Failure Ejection Fraction: 40 % or Greater HEAVEN Inhibitor Prescribed: No Contraindication/Reason for not providing: on ARB Beta-Cami Prescribed: Metoprolol Succinate Angiotensin II Receptor Cami Prescribed: Yes AnticoagulationTherapy for Atrial Fibrillation/Atrialflutter: No Contraindication/Reason for not providing: no hx of afib Contraindication/Reason for not providing: ef>50 Hydralazine Nitrate Prescribed: Yes Implantable Cardioverter Defibrillator Therapy: No Contraindication/Reason for not providing: ef>50 Cardiac Resynchronization Therapy Prescribed: No Contraindication/Reason for not providing: ef>50 - Follow up Will be discharged to: Home Follow Up Date (must be within 7 days from discharge): 08/07/16 Follow Up Time: 09:00
== END 2016-08-03 21:00 | disposition home or self-care (01) | DRG 682 ==
LOC: C.ER 22:22 → C.9E 07-27 00:43 → C.9I 07-27 06:57 → C.6T 07-28 22:14
PROVIDERS: ADMIT Internal Medicine; ATTEND Internal Medicine
PROC: 0DJ08ZZ Inspection of Upper Intestinal Tract, Via Natural or Artificial Opening Endoscopic (ICD-10-PCS; 2016-07-31)
PROC: 0DJD8ZZ Inspection of Lower Intestinal Tract, Via Natural or Artificial Opening Endoscopic (ICD-10-PCS; principal; 2016-07-31 09:39)
PROC: 3E0G8GC Introduction of Other Therapeutic Substance into Upper GI, Via Natural or Artificial Opening Endoscopic (ICD-10-PCS; 2016-07-31 09:39)
DX: N17.9 Acute kidney failure, unspecified (principal); K55.21 Angiodysplasia of colon with hemorrhage; E87.1 Hypo-osmolality and hyponatremia; I13.0 Hypertensive heart and chronic kidney disease with heart failure and stage 1 through stage 4 chronic kidney disease, or unspecified chronic kidney disease; I50.32 Chronic diastolic (congestive) heart failure; N18.4 Chronic kidney disease, stage 4 (severe); E86.0 Dehydration; D50.0 Iron deficiency anemia secondary to blood loss (chronic); E78.00 Pure hypercholesterolemia, unspecified; I25.10 Atherosclerotic heart disease of native coronary artery without angina pectoris; K64.8 Other hemorrhoids; Z79.4 Long term (current) use of insulin; Z87.891 Personal history of nicotine dependence; K44.9 Diaphragmatic hernia without obstruction or gangrene

== ENCOUNTER 2017-03-19 18:21 | Emergency (ER) | payer MEDICARE ==
[2017-03-19 18:22] VITALS: BMI 23.1
[2017-03-19 18:30] VITALS: PULSE 54; RESP 16; TEMP 97.4; O2SAT 100
--- NOTE | 2017-03-19 19:58 | C.PDOC ---
History Of Present Illness 81 y/o male presents to ED with sudden onset left eye color change of conjunctiva from white to red. Patient also complaints of non productive cough for "couple of days", saw PMD and was given Amoxicillin with no improvement. Patient was singing in high notes earlier. No other complaints at this time. Time Seen by Provider: 03/19/17 18:36 Chief Complaint (Nursing): Eye Problem History Per: Patient History/Exam Limitations: no limitations Onset/Duration Of Symptoms: Days Current Symptoms Are (Timing): Still Present Past Medical History Reviewed: Historical Data, Nursing Documentation, Vital Signs Vital Signs: Last Vital Signs Temp 97.4 F L 03/19/17 18:28 Pulse 54 L 03/19/17 18:28 Resp 16 03/19/17 18:28 BP 131/58 L 03/19/17 20:17 Pulse Ox 100 03/19/17 20:01 - Medical History PMH: Anemia, CHF, COPD, Diabetes, Diverticulitis, HTN, Hypercholesterolemia, Mitral Valve Prolapse, Pneumonia, Chronic Kidney Disease Surgical History: Appendectomy, Coronary Stent (3 yrs), Endoscopy - [facility] Procedures CYSTOSCOPY NEC (11/20/13) INSERT INDWELLING CATH (11/20/13) INSPECTION OF LOWER INTESTINAL TRACT, ENDO (07/27/16) INSPECTION OF UPPER INTESTINAL TRACT, ENDO (07/27/16) INTRODUCTION OF OTHER THERAPEUTIC SUBSTANCE INTO UP GI, ENDO (07/27/16) OTH LYSIS-PERITONEAL ADHES (11/20/13) URETHRAL DILATION (11/20/13) Family History: States: No Known Family Hx - Social History Hx Tobacco Use: No Hx Alcohol Use: No Hx Substance Use: No - Immunization History Hx Tetanus Toxoid Vaccination: No Hx Influenza Vaccination: No Hx Pneumococcal Vaccination: No Review Of Systems Constitutional: Negative for: Fever, Chills Eyes: Positive for: Redness. Negative for: Vision Change Cardiovascular: Negative for: Chest Pain Respiratory: Negative for: Shortness of Breath Skin: Negative for: Rash Physical Exam - Physical Exam Appears: Non-toxic, No Acute Distress Skin: Warm, Dry, No Rash Head: Atraumatic, Normacephalic Eye(s): right: Normal Inspection, left: Other (+subconjunctival hemmorhage w/ mild pertusion respect to iris. (-)surrounding erythema ) Oral Mucosa: Moist Throat: Normal, No Erythema, No Exudate Neck: Normal ROM, Supple Chest: Symmetrical Cardiovascular: Rhythm Regular Respiratory: Normal Breath Sounds, No Rales, No Rhonchi, No Wheezing Gastrointestinal/Abdominal: Soft, No Tenderness, No Guarding, No Rebound Neurological/Psych: Oriented x3 ED Course And Treatment O2 Sat by Pulse Oximetry: 100 (RA) Pulse Ox Interpretation: Normal Reevaluation Time: 20:00 Reassessment Condition: Improved - Physician Consult Information Outcome Of Conversation: d/w Dr. Stephens- Optho Department Chairperson @ [facility], ok to f/ u in office tomorrow/ @ 9AM Medical Decision Making Medical Decision Making: spontaneous L subconjunctival hemorriage, painless, recent coughing and singing (nailing that high note) may have provoked Only on ASA so no sig anticoagulants to defer. though he took this AM HTN meds, supplemental dose given and well controlled @ d /c. OK to f/u with Optho tomorrow per Dr. Stephens Disposition Doctor Will See Patient In The: Office Counseled Patient/Family Regarding: Studies Performed, Diagnosis - Disposition Referrals: Redd Stephens MD [Staff Provider] - Disposition: HOME/ ROUTINE Disposition Time: 20:00 Condition: GOOD Additional Instructions: keep blood pressure well controlled Ice packs to L eye as needed Artificial Tears or eye lubricant for L eye discomfort Follow-up with Dr. Stephens @ [facility] tomorrow/Sunday @ 9AM Instructions: Subconjunctival Hemorrhage (ED) Forms: [facility] (Hebrew) - Clinical Impression Clinical Impression: Subconjunctival hemorrhage, Hypertension - Scribe Statement The provider has reviewed the documentation as recorded by the Gagandeepibmacho Hirsch All medical record entries made by the Scribe were at my direction and personally dictated by me. I have reviewed the chart and agree that the record accurately reflects my personal performance of the history, physical exam, medical decision making, and the department course for this patient. I have also personally directed, reviewed, and agree with the discharge instructions and disposition.
[2017-03-19 20:17] VITALS: BP 131/58
== END 2017-03-19 20:21 | disposition home or self-care (01) ==
LOC: C.ER 18:21
DX: H11.32 Conjunctival hemorrhage, left eye (principal); I10 Essential (primary) hypertension

== ENCOUNTER 2017-04-19 05:30 | Inpatient (IN) | payer MEDICARE ==
[2017-04-19 05:30] VITALS: BMI 23.1
[2017-04-19] MEDS ORDERED: Sodium Chloride 0.9% 1,000 ML IV ONE (05:44)
--- NOTE | 2017-04-19 05:46 | C.PDOC ---
History Of Present Illness Patient is a 81 y/o male who presents to the ED with a complaint of severe abdominal pain and obstipation for the last 10 hours. Denies nausea or vomiting. Patient has Hx of multiple bowel obstructions 3 years ago, DM, HTN, 1 cardiac stent, HLD, stage 4 chronic kidney disease, CHF, and anemia. Chief Complaint (Nursing): Abdominal Pain History Per: Patient History/Exam Limitations: no limitations Onset/Duration Of Symptoms: Hrs (10 hours) Current Symptoms Are (Timing): Still Present Location Of Pain/Discomfort: Diffuse Associated Symptoms: denies: Nausea, Vomiting Recent travel outside of the [place]: No Past Medical History Reviewed: Historical Data, Nursing Documentation, Vital Signs Vital Signs: Last Vital Signs Temp 98.4 F 04/19/17 06:23 Pulse 72 04/19/17 06:23 Resp 20 04/19/17 06:23 BP 178/58 H 04/19/17 06:23 Pulse Ox 96 04/19/17 06:23 - Medical History PMH: Anemia, CHF, COPD, Diabetes, Diverticulitis, HTN, Hypercholesterolemia, Mitral Valve Prolapse, Obstructive Bowel, Pneumonia, Chronic Kidney Disease Surgical History: Appendectomy, Coronary Stent (3 yrs), Endoscopy Other Surgeries: catheter March 2016 - [facility] Procedures CYSTOSCOPY NEC (11/20/13) INSERT INDWELLING CATH (11/20/13) INSPECTION OF LOWER INTESTINAL TRACT, ENDO (07/27/16) INSPECTION OF UPPER INTESTINAL TRACT, ENDO (07/27/16) INTRODUCTION OF OTHER THERAPEUTIC SUBSTANCE INTO UP GI, ENDO (07/27/16) OTH LYSIS-PERITONEAL ADHES (11/20/13) URETHRAL DILATION (11/20/13) Family History: States: Unknown Family Hx - Social History Hx Tobacco Use: No Hx Alcohol Use: No Hx Substance Use: No - Immunization History Hx Tetanus Toxoid Vaccination: No Hx Influenza Vaccination: No Hx Pneumococcal Vaccination: Yes Review Of Systems Constitutional: Negative for: Fever, Weakness Eyes: Negative for: Pain ENT: Negative for: Ear Pain Cardiovascular: Negative for: Chest Pain Respiratory: Negative for: Cough, Shortness of Breath Gastrointestinal: Positive for: Abdominal Pain, Constipation, Other (obstipation ). Negative for: Nausea, Vomiting Genitourinary: Negative for: Dysuria, Hematuria Musculoskeletal: Negative for: Neck Pain, Back Pain Skin: Negative for: Rash Neurological: Negative for: Weakness, Change in Speech, Confusion Physical Exam - Physical Exam Appears: Well, Non-toxic, In Acute Distress Skin: Normal Color, Warm, Dry Head: Atraumatic, Normacephalic Eye(s): bilateral: Normal Inspection Ear(s): Bilateral: Normal Oral Mucosa: Moist Tongue: Normal Appearing Lips: Normal Appearing Gingiva: Normal Appearing Chest: Symmetrical Cardiovascular: Rhythm Regular, No Murmur Respiratory: Normal Breath Sounds, No Rales, No Rhonchi, No Wheezing Gastrointestinal/Abdominal: No Bowel Sounds, Tenderness (diffusely), Distention , Guarding, No Rebound Back: Normal Inspection Male Genital: Normal Inspection Extremity: Normal ROM Neurological/Psych: Oriented x3, Normal Speech, Normal Cognition ED Course And Treatment - Laboratory Results Result Diagrams: 04/19/17 06:11 04/19/17 06:08 ECG Rhythm: Sinus Rhythm, 1st Degree HB Interpretation Of ECG: Infusion complexes. OK: 264. QRS: 98. QT: 402. QTC: 440. No ischemic changes Rate From EC (bpm) Progress Note: CXR, obstructive series XR, UA, and blood work ordered. Medical Decision Making Medical Decision Making: pt with abd pain with hx of multiple bowel obstructions. Ct a/p with po ordered. case turned over to physician at change of shift. Disposition - Disposition Disposition Time: 07:16 Condition: GUARDED Forms: [facility] (Yakut) - Clinical Impression Clinical Impression: Abdominal bloating, Abdominal distension, Abdominal wall pain, Small bowel obstruction due to adhesions - Scribe Statement The provider has reviewed the documentation as recorded by the Scribmacho Wilson All medical record entries made by the Gagandeepibmacho were at my direction and personally dictated by me. I have reviewed the chart and agree that the record accurately reflects my personal performance of the history, physical exam, medical decision making, and the department course for this patient. I have also personally directed, reviewed, and agree with the discharge instructions and disposition.
[2017-04-19 06:22] LABS: ALB/GLOB RATIO 1.5 (1.0-2.1); BILIRUBIN,TOTAL 0.6 mg/dL (0.2-1.3); CALCIUM 8.1 mg/dl (8.6-10.4); POTASSIUM 3.9 mmol/L (3.6-5.2); TOTAL PROTEIN 7.3 g/dL (6.3-8.3)
[2017-04-19 06:28] LABS: HEMATOCRIT 35.4 % (35.0-51.0); MEAN CORPUSCULAR HGB CONC 31.9 g/dL (33.0-37.0)
[2017-04-19 06:31] LABS: BASO % 0.3 % (0.0-2.0); EOS # 0.2 K/uL (0.0-0.7); EOS % 1.5 % (0.0-4.0); LYMPH # 1.6 K/uL (1.0-4.3); MEAN CORPUSCULAR HEMOGLOBIN 20.2 pg (27.0-31.0); MEAN PLATELET VOLUME 8.8 fL (7.2-11.7); MONO # 1.1 K/uL (0.0-0.8)
[2017-04-19 06:35] LABS: TROPONIN I 0.023 ng/mL (0.00-0.120)
[2017-04-19 06:42] LABS: MEAN CELL VOLUME 63.4 fL (80.0-94.0); WHITE BLOOD COUNT 16.1 K/uL (4.8-10.8)
[2017-04-19 06:43] LABS: LYMPH % 10.3 % (20.0-40.0); MONO % 6.6 % (0.0-10.0)
[2017-04-19] MEDS ORDERED: Iohexol 240 (50 ml) PO ONE (06:58)
[2017-04-19] MEDS ORDERED: Iohexol 240 (50 ml) ONE (07:02)
[2017-04-19 07:10] LABS: RBC URINE 1 /hpf (0-3); URINE BILIRUBIN NEGATIVE (NEGATIVE); URINE BLOOD NEGATIVE (NEGATIVE); URINE COLOR Straw (YELLOW); URINE GLUCOSE (UA) 2+ mg/dL (Normal); URINE KETONE NEGATIVE (NEGATIVE); URINE LEUKOCYTE ESTERASE NEG Leu/uL (Negative); URINE PROTEIN 2+ mg/dL (NEGATIVE); URINE UROBILINOGEN NORMAL mg/dL (0.2-1.0); WBC URINE < 1 /hpf (0-5)
--- NOTE | 2017-04-19 09:22 | RAD ---
PROCEDURE: Radiographs of the chest and abdomen (obstructive series) HISTORY: abd pain COMPARISON: No prior. TECHNIQUE: AP radiograph of the chest, with upright and supine radiographs of the abdomen. FINDINGS: CHEST: Lungs: Clear. Cardiovascular: Mild cardiomegaly. No pulmonary vascular congestion. Pleura: No pleural fluid. No pneumothorax. Other findings: Asymmetrically elevated right hemidiaphragm ABDOMEN AND PELVIS: Bowel: Air-fluid levels in mostly top-normal small bowel caliber loops are noted. A central mid-lower small bowel loop borderline focally prominent 4 point 2 cm. The other regional small bowel loops are not as focally prominent. Gas and stool throughout the colon is noted right stool retention noted Unremarkable bowel gas pattern. No evidence of mechanical obstruction. Free air: None. Bones: Thoraco lumbar spondylosis. Bilateral hip arthrosis Other findings: Hemipelvic surgical clips noted. Arterial vascular calcifications medial groin aspects. Source margins maintain IMPRESSION: No pulmonary infiltrate. Cardiomegaly Nonspecific bowel pattern. No high-grade or complete obstruction suggested. Small bowel air-fluid levels a nonspecific -a central level small-bowel loops is borderline caliber prominent -a minimal focal ileus here or a intermittent partial small bowel obstruction here or top-normal variant are all considerations. Consider CT abdomen and pelvis (which appears to have already been ordered)
--- NOTE | 2017-04-19 09:52 | CT ---
PROCEDURE: CT Abdomen and Pelvis with contrast HISTORY: Abdominal pain COMPARISON: 07/21/2015. TECHNIQUE: CT scan of the abdomen and pelvis was performed without administration of intravenous contrast. Oral contrast was administered. Coronal and sagittal reformatted images were obtained. Radiation dose: Total exam DLP = 384.13 mGy-cm. This CT exam was performed using one or more of the following dose reduction techniques: Automated exposure control, adjustment of the mA and/or kV according to patient size, and/or use of iterative reconstruction technique. FINDINGS: LOWER THORAX: There is right basilar atelectasis. The visualized left lung is clear. LIVER: Normal in size. No gross lesion or ductal dilatation. GALLBLADDER AND BILE DUCTS: No calcified gallstones. PANCREAS: Normal in size. No gross lesion or ductal dilatation. SPLEEN: Normal in size. ADRENALS: No discrete nodule. KIDNEYS AND URETERS: Normal in size. No nephrolithiasis or hydronephrosis. No solid mass. VASCULATURE: There are advanced atherosclerotic aortoiliac calcifications. No aortic aneurysm. BOWEL: There is moderate dilatation of the proximal and mid small bowel loops. The distal small bowel loops are decompressed. The ileocecal junction is normal. No definite transition zone is identified. There is moderate amount of stool scattered throughout the colon. APPENDIX: Normal appendix. PERITONEUM: No free-fluid. No free air. LYMPH NODES: No enlarged lymph nodes. BLADDER: Grossly normal in appearance. REPRODUCTIVE: Unremarkable. BONES: No acute fracture. Mild diffuse bone demineralization and multilevel degenerative disc disease, worse at L4-5. OTHER FINDINGS: There is a small sliding hiatal hernia and mild gastroesophageal reflux. There is a left inguinal hernia containing a segment of nonobstructed sigmoid colon. IMPRESSION: 1. Findings are most compatible with acute small bowel obstruction with a transition zone presumably in the distal small bowel in the right lower quadrant. 2. Small left inguinal hernia containing a segment of nonobstructed sigmoid colon. 3. Small sliding hiatal hernia and mild gastroesophageal reflux
[2017-04-19] MEDS ORDERED: Dextrose 5%/0.9% NS 1,000 ML IV ONE ×2 (10:29→10:45)
--- NOTE | 2017-04-19 10:35 | RAD ---
PROCEDURE: CHEST RADIOGRAPH, 1 VIEW HISTORY: NG TUBE INSERTION COMPARISON: Member 09/2016 FINDINGS: LUNGS: Clear. Mammilation to the right hemidiaphragm noted -unchanged PLEURA: No pneumothorax or pleural fluid seen. CARDIOVASCULAR: Cardiomegaly- and thoracic aortic arterial vascular calcifications-similar OSSEOUS STRUCTURES: Bilateral shoulder arthrosis VISUALIZED UPPER ABDOMEN: Normal. OTHER FINDINGS: NG tube tip below diaphragm in stomach IMPRESSION: NG tube tip in stomach. No acute cardiopulmonary pathology noted
--- NOTE | 2017-04-19 11:23 | CP.PCM.CON ---
History of Present Illness - History of Present Illness History of Present Illness: General Surgery Dr. Seymour 81 y/o M w/ PMHx of SBO presents to the ED c/o diffuse abd pain. Pain started around 5pm yesterday. Pain is intermittent w/ no radiation. Family present at bedside contributing to history. Per , pt had BM yesterday morning and small BM this morning. reports pt having dry heaves overnight but no emesis. Pt admits to nausea and abd distention but denies F/C, D/C. Family reports similar symptoms in the past for SBO. The last occurrence was in 2014 for which pt was successfully treated conservatively. PMHx: HTN, HLD, MVP, DM2, SBO, CAD Meds: reviewed in cahrt NKDA PSHx: Appy, Prostatectomy, Coronary stents x3, R inguinal hernia repair, likely enterolysis for SBO SHx: denies tobacco, EtOH, drug use FHx: noncontributory Review of Systems - Review of Systems All systems: reviewed and no additional remarkable complaints except (see HPI) Past Patient History - Infectious Disease Hx of Infectious Diseases: None - Tetanus Immunizations Tetanus Immunization: Unknown - Past Medical History & Family History Past Medical History?: Yes - Past Social History Smoking Status: Former Smoker - CARDIAC Hx Congestive Heart Failure: Yes Hx Hypercholesterolemia: Yes Hx Hypertension: Yes Hx Mitral Valve Prolapse: Yes - PULMONARY Hx Chronic Obstructive Pulmonary Disease (COPD): Yes Hx Pneumonia: Yes - NEUROLOGICAL Hx Neurological Disorder: No - HEENT Hx HEENT Problems: Yes Hx Cataracts: Yes (both eyes) - RENAL Hx Chronic Kidney Disease: Yes - ENDOCRINE/METABOLIC Hx Endocrine Disorders: Yes Hx Diabetes Mellitus Type 2: Yes - HEMATOLOGICAL/ONCOLOGICAL Hx Anemia: Yes - INTEGUMENTARY Hx Dermatological Problems: No - GASTROINTESTINAL Hx Diverticulitis: Yes - GENITOURINARY/GYNECOLOGICAL Hx Genitourinary Disorders: Yes Hx Prostate Cancer: Yes - PSYCHIATRIC Hx Substance Use: No - SURGICAL HISTORY Hx Appendectomy: Yes Hx Coronary Stent: Yes (3 yrs) - ANESTHESIA Hx Anesthesia: Yes Hx Anesthesia Reactions: No Hx Malignant Hyperthermia: No Meds Allergies/Adverse Reactions: Allergies Allergy/AdvReac Type Severity Reaction Status Date / Time No Known Allergies Allergy Verified 04/19/17 05:43 - Medications Medications: Current Medications Dextrose/Sodium Chloride (Dextrose 5%/0.9% Ns 1000 Ml) 1,000 mls @ 100 mls/hr IV .Q10H ONE Stop: 04/19/17 20:28 Last Admin: 04/19/17 10:53 Dose: 100 mls/hr Physical Exam - Constitutional Appears: Non-toxic, No Acute Distress - Head Exam Head Exam: NORMAL INSPECTION - Eye Exam Eye Exam: Normal appearance - ENT Exam ENT Exam: Mucous Membranes Moist - Respiratory Exam Respiratory Exam: NORMAL BREATHING PATTERN. absent: Accessory Muscle Use, Respiratory Distress - Cardiovascular Exam Cardiovascular Exam: absent: Bradycardia, Tachycardia - GI/Abdominal Exam GI & Abdominal Exam: Distended, Firm, Hernia (L inguinal hernia), Tenderness ( minimal TTP). absent: Guarding, Rebound, Rigid - Extremities Exam Extremities exam: Positive for: normal inspection - Neurological Exam Neurological exam: Alert, Oriented x3 - Psychiatric Exam Psychiatric exam: Normal Affect, Normal Mood - Skin Skin Exam: Intact, Normal Color, Warm Additional comments: midline abd scar present Results - Vital Signs Recent Vital Signs: Last Vital Signs Temp 98.4 F 04/19/17 06:23 Pulse 79 04/19/17 10:40 Resp 18 04/19/17 10:40 BP 173/74 H 04/19/17 10:40 Pulse Ox 96 04/19/17 10:40 - Labs Result Diagrams: 04/19/17 06:11 04/19/17 06:08 Labs: Laboratory Results - last 24 hr 04/19/17 04/19/17 04/19/17 05:47 06:08 06:08 WBC RBC Hgb Hct MCV MCH MCHC RDW Plt Count MPV Neut % (Auto) Lymph % (Auto) [place] % (Auto) Eos % (Auto) Baso % (Auto) Neut # Lymph # M[place]at # Eos # Baso # PT INR APTT Sodium 130 L Potassium 3.9 Chloride 97 L Carbon Dioxide 19 L Anion Gap 17 BUN 48 H Creatinine 2.7 H Est GFR ( Amer) 28 Est GFR (Non-Af Amer) 23 POC Glucose (mg/dL) 234 H Random Glucose 228 H Lactic Acid 1.4 Calcium 8.1 L Total Bilirubin 0.6 AST 24 ALT 27 Alkaline Phosphatase 74 Troponin I 0.0230 NT-Pro-B Natriuret Pep 801 Total Protein 7.3 Albumin 4.4 Globulin 2.9 Albumin/Globulin Ratio 1.5 Lipase 170 Urine Color Urine Clarity Urine pH Ur Specific [place] Urine Protein Urine Glucose (UA) Urine Ketones Urine Blood Urine Nitrate Urine Bilirubin Urine Urobilinogen Ur Leukocyte Esterase Urine WBC (Auto) Urine RBC (Auto) Ur Squamous Epith Cells 04/19/17 04/19/17 04/19/17 06:11 06:11 07:05 WBC 16.1 H D RBC 5.59 Hgb 11.3 L Hct 35.4 MCV 63.4 L D MCH 20.2 L MCHC 31.9 L RDW 16.0 H Plt Count 160 MPV 8.8 Neut % (Auto) 81.3 H Lymph % (Auto) 10.3 L [place] % (Auto) 6.6 Eos % (Auto) 1.5 Baso % (Auto) 0.3 Neut # 13.1 H Lymph # 1.6 [place]at # 1.1 H Eos # 0.2 Baso # 0.0 PT 10.7 INR 1.0 APTT 35 H Sodium Potassium Chloride Carbon Dioxide Anion Gap BUN Creatinine Est GFR ( Amer) Est GFR (Non-Af Amer) POC Glucose (mg/dL) Random Glucose Lactic Acid Calcium Total Bilirubin AST ALT Alkaline Phosphatase Troponin I NT-Pro-B Natriuret Pep Total Protein Albumin Globulin Albumin/Globulin Ratio Lipase Urine Color Straw Urine Clarity Clear Urine pH 5.0 Ur Specific [place] 1.012 Urine Protein 2+ H Urine Glucose (UA) 2+ H Urine Ketones Negative Urine Blood Negative Urine Nitrate Negative Urine Bilirubin Negative Urine Urobilinogen Normal Ur Leukocyte Esterase Neg Urine WBC (Auto) < 1 Urine RBC (Auto) 1 Ur Squamous Epith Cells < 1 - Imaging and Cardiology CT scan - abdomen Status: Image reviewed by me, Report reviewed by me Assessment & Plan - Assessment and Plan (Free Text) Assessment: 81 y/o M w/ SBO likely 2/2 adhesions - NGT to continuous suction - monitor NGT output - NPO, IVF - serum lactate and procal - pain management - serial abd exams - monitor bowel function - daily labs - GI/DVT PPx Pt discussed w/ Dr. Lion Puckett DO PGY2
--- NOTE | 2017-04-19 15:59 | CP.PCM.HP ---
History of Present Illness - History of Present Illness History of Present Illness: Patient with PMHNIDDM2 CAD S/p Stent CT 2008 Hypertenbsion cholesterol CHF S/p Appendenctomy SBO with repeated partial SBO with one SBO surgery CRI-Dr Iqbal History of GIB history Atrial Fib Prostate Ca s/p surgery with history of urinary retention episode was brought to ER due to abdominal pain and unable to move bowel for one day patient was eatinmg peanut- drink less water- and developed abdpminal pain- and inability to move bowel- he report s he had bowel movement previous day denies fever vomiting urinary bleeding chest pain he was [place] to ER [place] - Ct showed SBO- wast placed on NGT suction, NPO, surgeon was contacted admitted for further evaluation and mangement Surgery Appendectomy SBOP dehesion Prostate Ca Surgery Immunization- no Flu shot and no Pneumonia on record patient was advised but refuses and keep delaying Present on Admission - Present on Admission Any Indicators Present on Admission: Yes History of DVT/PE: No History of Uncontrolled Diabetes: Yes Urinary Catheter: No Decubitus Ulcer Present: No Review of Systems - Constitutional Constitutional: absent: Fever, Frequent Falls - EENT Eyes: absent: Other Visual Disturbances Ears: absent: Disequilibrium Nose/Mouth/Throat: absent: Sinus Pain, Dysphagia, Sore Throat, Neck Pain - Cardiovascular Cardiovascular: absent: Chest Pain, Dyspnea, Palpitations, Syncope - Respiratory Respiratory: absent: Cough, Dyspnea - Gastrointestinal Gastrointestinal: Abdominal Pain, Constipation. absent: Diarrhea, Vomiting - Genitourinary Genitourinary: absent: Difficulty Urinating, Hematuria - Musculoskeletal Musculoskeletal: absent: Abnormal Gait, Deformity - Integumentary Integumentary: absent: Rash, Swelling - Neurological Neurological: absent: Abnormal Gait, Abnormal Hearing, Abnormal Movements, Abnormal Speech, Behavioral Changes - Psychiatric Psychiatric: absent: Behavioral Changes, Confusion, Memory Loss - Endocrine Endocrine: absent: Palpitations - Hematologic/Lymphatic Hematologic: absent: Easy Bleeding, Easy Bruising Past Patient History - Infectious Disease Hx of Infectious Diseases: None - Tetanus Immunizations Tetanus Immunization: Unknown - Past Medical History & Family History Past Medical History?: Yes - Past Social History Smoking Status: Former Smoker Chewing Tobacco Use: No Cigar Use: No Alcohol: None - CARDIAC Hx Cardiac Disorders: Yes (CAD S/P Stent ) Hx Congestive Heart Failure: Yes Hx Hypercholesterolemia: Yes Hx Hypertension: Yes Hx Mitral Valve Prolapse: Yes - PULMONARY Hx Chronic Obstructive Pulmonary Disease (COPD): Yes Hx Pneumonia: Yes - NEUROLOGICAL Hx Neurological Disorder: No - HEENT Hx HEENT Problems: Yes Hx Cataracts: Yes (both eyes) - RENAL Hx Chronic Kidney Disease: Yes - ENDOCRINE/METABOLIC Hx Endocrine Disorders: Yes Hx Diabetes Mellitus Type 2: Yes - HEMATOLOGICAL/ONCOLOGICAL Hx Anemia: Yes - INTEGUMENTARY Hx Dermatological Problems: No - GASTROINTESTINAL Hx Diverticulitis: Yes - GENITOURINARY/GYNECOLOGICAL Hx Genitourinary Disorders: Yes Hx Prostate Cancer: Yes - PSYCHIATRIC Hx Substance Use: No - SURGICAL HISTORY Hx Appendectomy: Yes Hx Coronary Stent: Yes (3 yrs) - ANESTHESIA Hx Anesthesia: Yes Hx Anesthesia Reactions: No Hx Malignant Hyperthermia: No Meds Allergies/Adverse Reactions: Allergies Allergy/AdvReac Type Severity Reaction Status Date / Time No Known Allergies Allergy Verified 04/19/17 05:43 Physical Exam - Constitutional Appears: No Acute Distress (, in bed connected to NGT suction with coffe ground , conversant ) - ENT Exam ENT Exam: Mucous Membranes Moist - Neck Exam Neck exam: Positive for: Full Rom. Negative for: Tenderness - Respiratory Exam Respiratory Exam: Clear to Auscultation Bilateral, NORMAL BREATHING PATTERN - Cardiovascular Exam Cardiovascular Exam: REGULAR RHYTHM - GI/Abdominal Exam GI & Abdominal Exam: Distended, Hypoactive Bowel Sounds, Soft. absent: Tenderness - Neurological Exam Neurological exam: Alert, Normal Gait, Oriented x3 - Psychiatric Exam Psychiatric exam: Normal Affect, Normal Mood - Skin Skin Exam: Intact, Normal Color Results - Vital Signs Recent Vital Signs: Last Vital Signs Temp 97.3 F L 04/19/17 15:40 Pulse 75 04/19/17 15:40 Resp 16 04/19/17 15:40 BP 160/72 H 04/19/17 15:40 Pulse Ox 96 04/19/17 15:40 - Labs Result Diagrams: 04/22/17 07:54 04/22/17 07:54 Labs: Laboratory Results - last 24 hr 04/19/17 04/19/17 04/19/17 05:47 06:08 06:08 WBC RBC Hgb Hct MCV MCH MCHC RDW Plt Count MPV Neut % (Auto) Lymph % (Auto) [place] % (Auto) Eos % (Auto) Baso % (Auto) Neut # Lymph # [place] # Eos # Baso # PT INR APTT Sodium 130 L Potassium 3.9 Chloride 97 L Carbon Dioxide 19 L Anion Gap 17 BUN 48 H Creatinine 2.7 H Est GFR ( Amer) 28 Est GFR (Non-Af Amer) 23 POC Glucose (mg/dL) 234 H Random Glucose 228 H Lactic Acid 1.4 Calcium 8.1 L Total Bilirubin 0.6 AST 24 ALT 27 Alkaline Phosphatase 74 Troponin I 0.0230 NT-Pro-B Natriuret Pep 801 Total Protein 7.3 Albumin 4.4 Globulin 2.9 Albumin/Globulin Ratio 1.5 Lipase 170 Urine Color Urine Clarity Urine pH Ur Specific [place] Urine Protein Urine Glucose (UA) Urine Ketones Urine Blood Urine Nitrate Urine Bilirubin Urine Urobilinogen Ur Leukocyte Esterase Urine WBC (Auto) Urine RBC (Auto) Ur Squamous Epith Cells 04/19/17 04/19/17 04/19/17 06:11 06:11 07:05 WBC 16.1 H D RBC 5.59 Hgb 11.3 L Hct 35.4 MCV 63.4 L D MCH 20.2 L MCHC 31.9 L RDW 16.0 H Plt Count 160 MPV 8.8 Neut % (Auto) 81.3 H Lymph % (Auto) 10.3 L [place] % (Auto) 6.6 Eos % (Auto) 1.5 Baso % (Auto) 0.3 Neut # 13.1 H Lymph # 1.6 [place] # 1.1 H Eos # 0.2 Baso # 0.0 PT 10.7 INR 1.0 APTT 35 H Sodium Potassium Chloride Carbon Dioxide Anion Gap BUN Creatinine Est GFR ( Amer) Est GFR (Non-Af Amer) POC Glucose (mg/dL) Random Glucose Lactic Acid Calcium Total Bilirubin AST ALT Alkaline Phosphatase Troponin I NT-Pro-B Natriuret Pep Total Protein Albumin Globulin Albumin/Globulin Ratio Lipase Urine Color Straw Urine Clarity Clear Urine pH 5.0 Ur Specific [place] 1.012 Urine Protein 2+ H Urine Glucose (UA) 2+ H Urine Ketones Negative Urine Blood Negative Urine Nitrate Negative Urine Bilirubin Negative Urine Urobilinogen Normal Ur Leukocyte Esterase Neg Urine WBC (Auto) < 1 Urine RBC (Auto) 1 Ur Squamous Epith Cells < 1 04/19/17 04/19/17 04/19/17 12:47 13:42 15:16 WBC RBC Hgb Hct MCV MCH MCHC RDW Plt Count MPV Neut % (Auto) Lymph % (Auto) [place] % (Auto) Eos % (Auto) Baso % (Auto) Neut # Lymph # [place] # Eos # Baso # PT INR APTT Sodium Potassium Chloride Carbon Dioxide Anion Gap BUN Creatinine Est GFR ( Amer) Est GFR (Non-Af Amer) POC Glucose (mg/dL) 206 H Random Glucose Lactic Acid 1.8 1.8 Calcium Total Bilirubin AST ALT Alkaline Phosphatase Troponin I NT-Pro-B Natriuret Pep Total Protein Albumin Globulin Albumin/Globulin Ratio Lipase Urine Color Urine Clarity Urine pH Ur Specific [place] Urine Protein Urine Glucose (UA) Urine Ketones Urine Blood Urine Nitrate Urine Bilirubin Urine Urobilinogen Ur Leukocyte Esterase Urine WBC (Auto) Urine RBC (Auto) Ur Squamous Epith Cells Assessment & Plan - Assessment and Plan (Free Text) Assessment: Patient with PMH NIDDM2- will be NPO- hold oral hypoglycemics Hypertension to continue medication CHF- continue lasix CRI Protenuria- under the care of Renal history GIB- currently normal H/H, no active bleeding History of abdominal surgery , Appendectomy , dehsion , with recurrent SBO admissions that resolve spontaneously High WBC-afebrile, vitals stable- CXR no abnormality, will repeat CBC now admitted for SBO- currently on NGT suction- surgery aware - plan as per their notes will keep NPO , GI prophyaxis hold DVT prophyaxis- due to impending surgery discussion with patient and family ( and daughter)
[2017-04-19 20:16] LABS: BASO % 0.3 % (0.0-2.0); EOS # 0.2 K/uL (0.0-0.7); EOS % 2.1 % (0.0-4.0); HEMATOCRIT 32.4 % (35.0-51.0); LYMPH # 1.4 K/uL (1.0-4.3); LYMPH % 13.2 % (20.0-40.0); MEAN CORPUSCULAR HEMOGLOBIN 20.1 pg (27.0-31.0); MEAN CORPUSCULAR HGB CONC 31.9 g/dL (33.0-37.0); MEAN PLATELET VOLUME 9.1 fL (7.2-11.7); MONO # 0.9 K/uL (0.0-0.8); MONO % 8.9 % (0.0-10.0); RED CELL DISTRIBUTION WIDTH 15.4 % (11.5-14.5); WHITE BLOOD COUNT 10.4 K/uL (4.8-10.8)
[2017-04-19] MEDS: Dextrose 5%/0.9% NS 1,000 ML IV SCH (23:59)
--- NOTE | 2017-04-20 07:52 | CP.PCM.CON ---
History of Present Illness - History of Present Illness History of Present Illness: CC: Pre Operative cardiac risk assessment 81 y/o M w/ PMHx of SBO presents to the ED c/o diffuse abd pain. Pain started around 5pm day before yesterday. Pain is intermittent w/ no radiation. Family present at bedside contributing to history. Per , pt had BM yesterday morning and small BM this morning. reports pt having dry heaves overnight but no emesis. Pt admits to nausea and abd distention but denies F/C, D/C. Family reports similar symptoms in the past for SBO. The last occurrence was in 2014 for which pt was successfully treated conservatively. Patient had a RCA stent 05/2016, Normal EF. No interval cardiac events or symptoms PMHx: CAD s/p RCA stent CHUCHO, HTN, HLD, DM2, SBO, CAD Meds: reviewed in cahrt NKDA PSHx: Appy, Prostatectomy, Coronary stents x3, R inguinal hernia repair, likely enterolysis for SBO SHx: denies tobacco, EtOH, drug use FHx: noncontributory Review of Systems - Review of Systems All systems: reviewed and no additional remarkable complaints except (see HPI) Meds Allergies/Adverse Reactions: Allergies Allergy/AdvReac Type Severity Reaction Status Date / Time No Known Allergies Allergy Verified 04/19/17 05:43 - Medications Medications: Current Medications Dextrose/Sodium Chloride (Dextrose 5%/0.9% Ns 1000 Ml) 1,000 mls @ 100 mls/hr IV .Q10H ONE Stop: 04/19/17 20:28 Last Admin: 04/19/17 10:53 Dose: 100 mls/hr Physical Exam - Constitutional Appears: Non-toxic, No Acute Distress - Head Exam Head Exam: NORMAL INSPECTION - Eye Exam Eye Exam: Normal appearance - ENT Exam ENT Exam: Mucous Membranes Moist - Respiratory Exam Respiratory Exam: NORMAL BREATHING PATTERN. absent: Accessory Muscle Use, Respiratory Distress - Cardiovascular Exam Cardiovascular Exam: absent: Bradycardia, Tachycardia - GI/Abdominal Exam GI & Abdominal Exam: Distended, Firm, Hernia (L inguinal hernia), Tenderness ( minimal TTP). absent: Guarding, Rebound, Rigid - Extremities Exam Extremities exam: Positive for: normal inspection - Neurological Exam Neurological exam: Alert, Oriented x3 - Psychiatric Exam Psychiatric exam: Normal Affect, Normal Mood - Skin Skin Exam: Intact, Normal Color, Warm Additional comments: midline abd scar present Past Patient History - Infectious Disease Hx of Infectious Diseases: None - Tetanus Immunizations Tetanus Immunization: Unknown - Past Medical History & Family History Past Medical History?: Yes - Past Social History Smoking Status: Former Smoker Chewing Tobacco Use: No Cigar Use: No Alcohol: None - CARDIAC Hx Cardiac Disorders: Yes (CAD S/P Stent ) Hx Congestive Heart Failure: Yes Hx Hypercholesterolemia: Yes Hx Hypertension: Yes Hx Mitral Valve Prolapse: Yes - PULMONARY Hx Chronic Obstructive Pulmonary Disease (COPD): Yes Hx Pneumonia: Yes - NEUROLOGICAL Hx Neurological Disorder: No - HEENT Hx HEENT Problems: Yes Hx Cataracts: Yes (both eyes) - RENAL Hx Chronic Kidney Disease: Yes - ENDOCRINE/METABOLIC Hx Endocrine Disorders: Yes Hx Diabetes Mellitus Type 2: Yes - HEMATOLOGICAL/ONCOLOGICAL Hx Anemia: Yes - INTEGUMENTARY Hx Dermatological Problems: No - GASTROINTESTINAL Hx Diverticulitis: Yes - GENITOURINARY/GYNECOLOGICAL Hx Genitourinary Disorders: Yes Hx Prostate Cancer: Yes - PSYCHIATRIC Hx Substance Use: No - SURGICAL HISTORY Hx Appendectomy: Yes Hx Coronary Stent: Yes (3 yrs) - ANESTHESIA Hx Anesthesia: Yes Hx Anesthesia Reactions: No Hx Malignant Hyperthermia: No Meds Allergies/Adverse Reactions: Allergies Allergy/AdvReac Type Severity Reaction Status Date / Time No Known Allergies Allergy Verified 04/19/17 05:43 - Medications Medications: Current Medications Amlodipine Besylate (Norvasc) 10 mg PO DAILY [facility] Furosemide (Lasix) 20 mg PO DAILY [facility] Last Admin: 04/19/17 18:46 Dose: 20 mg Hydrochlorothiazide (Hydrodiuril) 25 mg PO DAILY [facility] Dextrose/Sodium Chloride (Dextrose 5%/0.9% Ns 1000 Ml) 1,000 mls @ 100 mls/hr IV .Q10H [facility] Last Admin: 04/19/17 23:59 Dose: 100 mls/hr Losartan Potassium (Cozaar) 100 mg PO DAILY [facility] Metoprolol Tartrate (Lopressor) 25 mg PO DAILY [facility] Last Admin: 04/19/17 18:47 Dose: 25 mg Morphine Sulfate (Morphine) 1 mg IV Q4 PRN PRN Reason: pain Last Admin: 04/19/17 22:24 Dose: 1 mg Ondansetron HCl (Zofran Inj) 4 mg IVP Q4H PRN PRN Reason: Nausea/Vomiting Pantoprazole Sodium (Protonix Inj) 40 mg IVP DAILY [facility] Last Admin: 04/19/17 18:20 Dose: 40 mg Pantoprazole Sodium (Protonix Ec Tab) 40 mg PO DAILY [facility] Rosuvastatin Calcium (Crestor) 10 mg PO HS [facility] Last Admin: 04/19/17 22:11 Dose: 10 mg Results - Vital Signs Recent Vital Signs: Last Vital Signs Temp 99.1 F 04/19/17 23:25 Pulse 85 04/19/17 23:25 Resp 20 04/19/17 23:25 BP 160/71 H 04/19/17 23:25 Pulse Ox 97 04/19/17 23:25 - Labs Result Diagrams: 04/19/17 20:09 04/19/17 06:08 Labs: Laboratory Results - last 24 hr 04/19/17 04/19/17 04/19/17 11:38 12:47 13:42 WBC RBC Hgb Hct MCV MCH MCHC RDW Plt Count MPV Neut % (Auto) Lymph % (Auto) [place] % (Auto) Eos % (Auto) Baso % (Auto) Neut # Lymph # [place] # Eos # Baso # POC Glucose (mg/dL) Lactic Acid 1.8 1.8 Procalcitonin 0.08 L 04/19/17 04/19/17 04/19/17 15:16 20:09 21:05 WBC 10.4 RBC 5.15 Hgb 10.4 L Hct 32.4 L MCV 63.0 L MCH 20.1 L MCHC 31.9 L RDW 15.4 H Plt Count 145 MPV 9.1 Neut % (Auto) 75.5 H Lymph % (Auto) 13.2 L [place] % (Auto) 8.9 Eos % (Auto) 2.1 Baso % (Auto) 0.3 Neut # 7.8 H Lymph # 1.4 [place] # 0.9 H Eos # 0.2 Baso # 0.0 POC Glucose (mg/dL) 206 H 181 H Lactic Acid Procalcitonin 04/20/17 07:34 WBC RBC Hgb Hct MCV MCH MCHC RDW Plt Count MPV Neut % (Auto) Lymph % (Auto) [place] % (Auto) Eos % (Auto) Baso % (Auto) Neut # Lymph # [place] # Eos # Baso # POC Glucose (mg/dL) 186 H Lactic Acid Procalcitonin Assessment & Plan - Assessment and Plan (Free Text) Assessment: 1. CAD s/p RCA stent 05/2016. No interval cardiac symptoms 2. Normal EF 3. HTN 4. CKD Patient planned for surgery for possible SBO Basing on the clinical profile: This patient is considered moderate Cardiac risk (2-5%) for abdominal surgery under general anaesthesia If benefit out weighs the risk please proceed with the surgery Recommend DVT prophylaxis and resume ASA 81 daily as soon as possible
--- NOTE | 2017-04-20 08:31 | CP.PCM.PN ---
Subjective - Date & Time of Evaluation Date of Evaluation: 04/20/17 Time of Evaluation: 08:40 - Subjective Subjective: patient seen- in bed- awake alert- still with NGT suction- today denies abdominal pain- takes BP meds, no i=urinary complaints no cough NPO FS on monitoring no fever repeat WBC normal noted patient aware of condition and plan Objective - Vital Signs/Intake and Output Vital Signs (last 24 hours): Temp Pulse Resp BP Pulse Ox 98.4 F 67 20 164/77 H 96 04/20/17 08:16 04/20/17 08:16 04/20/17 08:16 04/20/17 08:16 04/20/17 08:16 Intake and Output: 04/20/17 04/20/17 06:59 18:59 Intake Total 860 800 Output Total 450 900 Balance 410 -100 - Medications Medications: Current Medications Amlodipine Besylate (Norvasc) 10 mg PO DAILY [facility] Furosemide (Lasix) 20 mg PO DAILY [facility] Last Admin: 04/19/17 18:46 Dose: 20 mg Hydrochlorothiazide (Hydrodiuril) 25 mg PO DAILY [facility] Dextrose/Sodium Chloride (Dextrose 5%/0.9% Ns 1000 Ml) 1,000 mls @ 100 mls/hr IV .Q10H [facility] Last Admin: 04/19/17 23:59 Dose: 100 mls/hr Losartan Potassium (Cozaar) 100 mg PO DAILY [facility] Metoprolol Tartrate (Lopressor) 25 mg PO DAILY [facility] Last Admin: 04/19/17 18:47 Dose: 25 mg Morphine Sulfate (Morphine) 1 mg IV Q4 PRN PRN Reason: pain Last Admin: 04/19/17 22:24 Dose: 1 mg Ondansetron HCl (Zofran Inj) 4 mg IVP Q4H PRN PRN Reason: Nausea/Vomiting Pantoprazole Sodium (Protonix Susp) 40 mg PO DAILY [facility] Rosuvastatin Calcium (Crestor) 10 mg PO HS [facility] Last Admin: 04/19/17 22:11 Dose: 10 mg - Labs Labs: 04/19/17 20:09 04/19/17 06:08 PT 10.7 SECONDS (9.7-12.2) 04/19/17 06:11 INR 1.0 04/19/17 06:11 APTT 35 SECONDS (21-34) H 04/19/17 06:11 - Constitutional Appears: No Acute Distress - Head Exam Head Exam: ATRAUMATIC, NORMOCEPHALIC - Eye Exam Eye Exam: Normal appearance. absent: Nystagmus - ENT Exam ENT Exam: Mucous Membranes Moist - Neck Exam Neck Exam: Full ROM - Respiratory Exam Respiratory Exam: Clear to Ausculation Bilateral, NORMAL BREATHING PATTERN - Cardiovascular Exam Cardiovascular Exam: REGULAR RHYTHM - GI/Abdominal Exam GI & Abdominal Exam: Soft, Diminished Bowel Sounds - Back Exam Back Exam: absent: tenderness - Neurological Exam Neurological Exam: Alert, Awake, Normal Gait, Oriented x3 - Psychiatric Exam Psychiatric exam: Normal Affect, Normal Mood. absent: Depressed - Skin Skin Exam: Intact, Normal Color Assessment and Plan - Assessment and Plan (Free Text) Assessment: Patient SBO- improving with NGT suction, due to non worsening condition- patient placed on monitoring , no current plan for surgery Hypertension a will adjust dose accordingly DM- is NPO , oral hypoglycemics on hold, CAD seen and evaluste by cardio for possible surgery CRI, been evaluated by renal , stable, will monitor CHF- on diuretics, not in exacerbation continue monitoring
[2017-04-20] MEDS ORDERED: Phenol Topical 1.4% Throat Spray (180 ml) MT PRN (08:34)
[2017-04-20] MEDS: Pantoprazole 40 mg Susp UD PO SCH (09:36)
[2017-04-20] MEDS: Dextrose 5%/0.9% NS 1,000 ML IV SCH ×2 (09:37→18:20)
[2017-04-20] MEDS ORDERED: Influenza Vaccine 60 mcg/0.5 mL SYR (4YR UP) IM ONE (10:00)
--- NOTE | 2017-04-20 10:12 | CP.PCM.PN ---
Subjective - Date & Time of Evaluation Date of Evaluation: 04/20/17 Time of Evaluation: 07:15 - Subjective Subjective: General Surgery Dr. Seymour Pt S&E@bedside. NAEO. Pt's overall appearance better today than yesterday. Pt denies F/C, N/V. reports improved abd pain and distention. NGT output 300cc Objective - Vital Signs/Intake and Output Vital Signs (last 24 hours): Temp Pulse Resp BP Pulse Ox 98.4 F 67 20 164/77 H 96 04/20/17 08:16 04/20/17 08:16 04/20/17 08:16 04/20/17 09:36 04/20/17 08:16 Intake and Output: 04/20/17 04/20/17 06:59 18:59 Intake Total 860 800 Output Total 450 900 Balance 410 -100 - Medications Medications: Current Medications Amlodipine Besylate (Norvasc) 10 mg PO DAILY [facility] Last Admin: 04/20/17 09:36 Dose: 10 mg Furosemide (Lasix) 20 mg PO DAILY [facility] Last Admin: 04/20/17 09:36 Dose: 20 mg Hydrochlorothiazide (Hydrodiuril) 25 mg PO DAILY [facility] Last Admin: 04/20/17 09:36 Dose: 25 mg Dextrose/Sodium Chloride (Dextrose 5%/0.9% Ns 1000 Ml) 1,000 mls @ 100 mls/hr IV .Q10H [facility] Last Admin: 04/20/17 09:37 Dose: 100 mls/hr Losartan Potassium (Cozaar) 100 mg PO DAILY [facility] Last Admin: 04/20/17 09:36 Dose: 100 mg Metoprolol Tartrate (Lopressor) 25 mg PO DAILY [facility] Last Admin: 04/20/17 09:35 Dose: 25 mg Morphine Sulfate (Morphine) 1 mg IV Q4 PRN PRN Reason: pain Last Admin: 04/19/17 22:24 Dose: 1 mg Ondansetron HCl (Zofran Inj) 4 mg IVP Q4H PRN PRN Reason: Nausea/Vomiting Pantoprazole Sodium (Protonix Susp) 40 mg PO DAILY [facility] Last Admin: 04/20/17 09:36 Dose: 40 mg Phenol/Menthol (Phenaseptic 1.4% Throat [place]) 1 ml MT Q2H PRN PRN Reason: Sore Throat Rosuvastatin Calcium (Crestor) 10 mg PO HS [facility] Last Admin: 04/19/17 22:11 Dose: 10 mg - Labs Labs: 04/19/17 20:09 04/19/17 06:08 PT 10.7 SECONDS (9.7-12.2) 04/19/17 06:11 INR 1.0 04/19/17 06:11 APTT 35 SECONDS (21-34) H 04/19/17 06:11 - Constitutional Appears: Non-toxic, No Acute Distress - Head Exam Head Exam: NORMAL INSPECTION - Eye Exam Eye Exam: Normal appearance - ENT Exam ENT Exam: Mucous Membranes Moist Additional comments: NGT in place - Respiratory Exam Respiratory Exam: NORMAL BREATHING PATTERN. absent: Accessory Muscle Use, Respiratory Distress - Cardiovascular Exam Cardiovascular Exam: absent: Bradycardia, Tachycardia - GI/Abdominal Exam GI & Abdominal Exam: Distended (improved), Soft. absent: Firm, Guarding, Tenderness, Rebound - Extremities Exam Extremities Exam: Normal Inspection - Neurological Exam Neurological Exam: Alert, Awake, Oriented x3 - Psychiatric Exam Psychiatric exam: Normal Affect, Normal Mood - Skin Skin Exam: Dry, Intact, Normal Color, Warm Additional comments: midline scar present Assessment and Plan - Assessment and Plan (Free Text) Assessment: 81 y/o M w/ SBO - cont NGT to continuous suction - clamp NGT for Ambulation - cont NPO, IVF - f/u AM labs - cont pain management - serial abd exams - monitor bowel function - GI/DVT PPx Pt discussed w/ Dr. Lion Puckett DO PGY2
[2017-04-20 11:39] LABS: HEMATOCRIT 31.8 % (35.0-51.0); MEAN CELL VOLUME 63.5 fL (80.0-94.0); MEAN CORPUSCULAR HEMOGLOBIN 20.6 pg (27.0-31.0); MEAN CORPUSCULAR HGB CONC 32.4 g/dL (33.0-37.0); MEAN PLATELET VOLUME 9.1 fL (7.2-11.7); RED CELL DISTRIBUTION WIDTH 15.6 % (11.5-14.5); WHITE BLOOD COUNT 8.4 K/uL (4.8-10.8)
[2017-04-20 12:07] LABS: CALCIUM 7.3 mg/dl (8.6-10.4); POTASSIUM 3.2 mmol/L (3.6-5.2)
--- NOTE | 2017-04-20 18:42 | CARD ---
APPROVED REPORT EKG Measurement Heart [id number] <Conclusion> Sinus rhythm with 1st degree AV block with fusion complexes Inferior infarct, age undetermined Abnormal ECG
[2017-04-21 07:50] VITALS: RESP 20
--- NOTE | 2017-04-21 08:42 | CP.PCM.PN ---
Subjective - Date & Time of Evaluation Date of Evaluation: 04/21/17 Time of Evaluation: 09:00 - Subjective Subjective: patient seen- NGT out- started on clear liquids- tolerating - no abdominal jude- diet will be adjusted avccordingly had enema last night successful had gas paassage no fever noted low potassium supplemented yesterday noted BP - on the high side- will adjust meds patient has no other complaints patient aware of condition and plan Objective - Vital Signs/Intake and Output Vital Signs (last 24 hours): Temp Pulse Resp BP Pulse Ox 98.7 F 62 20 161/61 H 95 04/21/17 07:48 04/21/17 07:48 04/21/17 07:48 04/21/17 07:48 04/21/17 07:48 Intake and Output: 04/21/17 04/21/17 06:59 18:59 Intake Total 1700 Balance 1700 - Medications Medications: Current Medications Amlodipine Besylate (Norvasc) 10 mg PO DAILY [facility] Last Admin: 04/20/17 09:36 Dose: 10 mg Furosemide (Lasix) 20 mg PO DAILY [facility] Last Admin: 04/20/17 09:36 Dose: 20 mg Hydrochlorothiazide (Hydrodiuril) 25 mg PO DAILY [facility] Last Admin: 04/20/17 09:36 Dose: 25 mg Potassium Chloride/Dextrose/Sod Cl (Potassium Chl 20 Meq In D5-1/2ns) 1,000 mls @ 0 mls/hr IV .Q0M [facility] PRN Reason: Per Protocol Losartan Potassium (Cozaar) 100 mg PO DAILY [facility] Last Admin: 04/20/17 09:36 Dose: 100 mg Metoprolol Tartrate (Lopressor) 25 mg PO DAILY [facility] Last Admin: 04/20/17 09:35 Dose: 25 mg Morphine Sulfate (Morphine) 1 mg IV Q4 PRN PRN Reason: pain Last Admin: 04/19/17 22:24 Dose: 1 mg Ondansetron HCl (Zofran Inj) 4 mg IVP Q4H PRN PRN Reason: Nausea/Vomiting Pantoprazole Sodium (Protonix Susp) 40 mg PO DAILY [facility] Last Admin: 04/20/17 09:36 Dose: 40 mg Phenol/Menthol (Phenaseptic 1.4% Throat [place]) 1 ml MT Q2H PRN PRN Reason: Sore Throat Rosuvastatin Calcium (Crestor) 10 mg PO HS [facility] Last Admin: 04/20/17 21:25 Dose: 10 mg - Labs Labs: 04/20/17 11:29 04/20/17 11:29 PT 10.7 SECONDS (9.7-12.2) 04/19/17 06:11 INR 1.0 04/19/17 06:11 APTT 35 SECONDS (21-34) H 04/19/17 06:11 - Constitutional Appears: No Acute Distress - Head Exam Head Exam: ATRAUMATIC, NORMOCEPHALIC (eating tolerating clear lquids) - Eye Exam Eye Exam: Normal appearance - ENT Exam ENT Exam: Mucous Membranes Moist - Neck Exam Neck Exam: Full ROM - Respiratory Exam Respiratory Exam: Clear to Ausculation Bilateral, NORMAL BREATHING PATTERN - Cardiovascular Exam Cardiovascular Exam: REGULAR RHYTHM - GI/Abdominal Exam GI & Abdominal Exam: Soft, Diminished Bowel Sounds. absent: Tenderness - Back Exam Back Exam: absent: tenderness - Neurological Exam Neurological Exam: Alert, Awake, Normal Gait (walks to the bathroom), Oriented x3 - Psychiatric Exam Psychiatric exam: Normal Affect, Normal Mood - Skin Skin Exam: Intact, Normal Color Assessment and Plan - Assessment and Plan (Free Text) Assessment: Episode of SBO- post history of abdominal surgery- post NGT- tolerating clear liquids- to advance diet- and plan for home if improved DM- started on clear liquids- gladis start when on full diet TLC DM education Hypertension on the high side- will adjust does CRI with low ppotassium from GI disease- supplemented- not to be aggressive due to CRI Debilty- PT rehab referral continue other medications
[2017-04-21] MEDS ORDERED: Potassium Ch 20mEq in D5-1/2NS 1,000 ML IV SCH (08:45)
[2017-04-21] MEDS ORDERED: Influenza Vaccine 60 mcg/0.5 mL SYR (4YR UP) IM ONE (10:00)
[2017-04-21] MEDS: Pantoprazole 40 mg Susp UD PO SCH (10:41)
[2017-04-21 11:52] LABS: HEMATOCRIT 30.6 % (35.0-51.0); MEAN CELL VOLUME 63.8 fL (80.0-94.0); MEAN CORPUSCULAR HEMOGLOBIN 20.4 pg (27.0-31.0); MEAN PLATELET VOLUME 9.1 fL (7.2-11.7); RED CELL DISTRIBUTION WIDTH 15.6 % (11.5-14.5); WHITE BLOOD COUNT 7.3 K/uL (4.8-10.8)
[2017-04-21 12:23] LABS: CALCIUM 8.1 mg/dl (8.6-10.4); POTASSIUM 3.5 mmol/L (3.6-5.2)
--- NOTE | 2017-04-21 16:30 | CP.PCM.PN ---
Subjective - Date & Time of Evaluation Date of Evaluation: 04/21/17 Time of Evaluation: 15:10 - Subjective Subjective: Patient seen and evaluated Denies chest pain and dyspnea Patient passed flatus No surgery planned Resume ASA and Plavix Objective - Vital Signs/Intake and Output Vital Signs (last 24 hours): Temp Pulse Resp BP Pulse Ox 98.3 F 64 20 168/71 H 99 04/21/17 16:21 04/21/17 16:21 04/21/17 16:21 04/21/17 16:21 04/21/17 16:21 Intake and Output: 04/21/17 04/21/17 06:59 18:59 Intake Total 1700 450 Balance 1700 450 - Medications Medications: Current Medications Amlodipine Besylate (Norvasc) 10 mg PO DAILY [facility] Last Admin: 04/21/17 10:41 Dose: 10 mg Furosemide (Lasix) 20 mg PO DAILY [facility] Last Admin: 04/21/17 10:41 Dose: 20 mg Hydrochlorothiazide (Hydrodiuril) 25 mg PO DAILY [facility] Last Admin: 04/21/17 10:40 Dose: 25 mg Losartan Potassium (Cozaar) 100 mg PO DAILY [facility] Last Admin: 04/21/17 10:41 Dose: 100 mg Metoprolol Tartrate (Lopressor) 50 mg PO DAILY [facility] Morphine Sulfate (Morphine) 1 mg IV Q4 PRN PRN Reason: pain Last Admin: 04/19/17 22:24 Dose: 1 mg Ondansetron HCl (Zofran Inj) 4 mg IVP Q4H PRN PRN Reason: Nausea/Vomiting Pantoprazole Sodium (Protonix Susp) 40 mg PO DAILY [facility] Last Admin: 04/21/17 10:41 Dose: 40 mg Phenol/Menthol (Phenaseptic 1.4% Throat [place]) 1 ml MT Q2H PRN PRN Reason: Sore Throat Rosuvastatin Calcium (Crestor) 10 mg PO HS [facility] Last Admin: 04/20/17 21:25 Dose: 10 mg - Labs Labs: 04/21/17 11:30 04/21/17 11:30 PT 10.7 SECONDS (9.7-12.2) 04/19/17 06:11 INR 1.0 04/19/17 06:11 APTT 35 SECONDS (21-34) H 04/19/17 06:11
[2017-04-21] MEDS: Enoxaparin 40 mg Syringe SC SCH (17:41)
--- NOTE | 2017-04-21 18:06 | CP.PCM.PN ---
Subjective - Date & Time of Evaluation Date of Evaluation: 04/21/17 Time of Evaluation: 18:03 - Subjective Subjective: General surgery progress note for Dr. Magnus Cade, PGY-1 Pt S & E at bedside. Pt reports tolerating regular diet, flatus, ambulation. Denies N & V, F & C, abdominal pain, BM. Objective - Vital Signs/Intake and Output Vital Signs (last 24 hours): Temp Pulse Resp BP Pulse Ox 98.3 F 64 20 168/71 H 99 04/21/17 16:21 04/21/17 16:21 04/21/17 16:21 04/21/17 16:21 04/21/17 16:21 Intake and Output: 04/21/17 04/21/17 06:59 18:59 Intake Total 1700 450 Balance 1700 450 - Medications Medications: Current Medications Amlodipine Besylate (Norvasc) 10 mg PO DAILY [facility] Last Admin: 04/21/17 10:41 Dose: 10 mg Aspirin (Ecotrin) 81 mg PO DAILY [facility] Last Admin: 04/21/17 17:41 Dose: 81 mg Enoxaparin Sodium (Lovenox) 40 mg SC DAILY [facility] Last Admin: 04/21/17 17:41 Dose: 40 mg Furosemide (Lasix) 20 mg PO DAILY [facility] Last Admin: 04/21/17 10:41 Dose: 20 mg Hydrochlorothiazide (Hydrodiuril) 25 mg PO DAILY [facility] Last Admin: 04/21/17 10:40 Dose: 25 mg Losartan Potassium (Cozaar) 100 mg PO DAILY [facility] Last Admin: 04/21/17 10:41 Dose: 100 mg Metoprolol Tartrate (Lopressor) 50 mg PO DAILY [facility] Morphine Sulfate (Morphine) 1 mg IV Q4 PRN PRN Reason: pain Last Admin: 04/19/17 22:24 Dose: 1 mg Ondansetron HCl (Zofran Inj) 4 mg IVP Q4H PRN PRN Reason: Nausea/Vomiting Pantoprazole Sodium (Protonix Susp) 40 mg PO DAILY [facility] Last Admin: 04/21/17 10:41 Dose: 40 mg Phenol/Menthol (Phenaseptic 1.4% Throat [place]) 1 ml MT Q2H PRN PRN Reason: Sore Throat Rosuvastatin Calcium (Crestor) 10 mg PO [facility] Last Admin: 04/20/17 21:25 Dose: 10 mg - Labs Labs: 04/21/17 11:30 04/21/17 11:30 PT 10.7 SECONDS (9.7-12.2) 04/19/17 06:11 INR 1.0 04/19/17 06:11 APTT 35 SECONDS (21-34) H 04/19/17 06:11 - Constitutional Appears: Non-toxic, No Acute Distress - Head Exam Head Exam: ATRAUMATIC, NORMAL INSPECTION, NORMOCEPHALIC - Eye Exam Eye Exam: EOMI, Normal appearance - ENT Exam ENT Exam: Mucous Membranes Moist, Normal Exam - Neck Exam Neck Exam: Full ROM, Normal Inspection - Respiratory Exam Respiratory Exam: Clear to Ausculation Bilateral, NORMAL BREATHING PATTERN - Cardiovascular Exam Cardiovascular Exam: REGULAR RHYTHM, +S1, +S2 - GI/Abdominal Exam GI & Abdominal Exam: Soft, Normal Bowel Sounds. absent: Distended, Firm, Guarding, Rigid, Tenderness, Hyperactive Bowel Sounds, Rebound - Extremities Exam Extremities Exam: Normal Inspection. absent: Pedal Edema - Neurological Exam Neurological Exam: Alert, Awake, CN II-XII Intact, Oriented x3 - Psychiatric Exam Psychiatric exam: Normal Affect, Normal Mood - Skin Skin Exam: Dry, Intact, Normal Color, Warm Additional comments: Well healed midline linear abdominal scar Assessment and Plan - Assessment and Plan (Free Text) Assessment: 81M w/SBO -resolving Plan: Encourage ambulation Cont regular diet Pt has not required pain meds x 2 days [place] for BM DW attending Alyssia, PGY-1
[2017-04-22 08:06] LABS: HEMATOCRIT 30.8 % (35.0-51.0); MEAN CELL VOLUME 63.2 fL (80.0-94.0); MEAN CORPUSCULAR HEMOGLOBIN 20.5 pg (27.0-31.0); MEAN CORPUSCULAR HGB CONC 32.5 g/dL (33.0-37.0); MEAN PLATELET VOLUME 9.1 fL (7.2-11.7); RED CELL DISTRIBUTION WIDTH 15.2 % (11.5-14.5); WHITE BLOOD COUNT 7.1 K/uL (4.8-10.8)
[2017-04-22 08:38] LABS: CALCIUM 7.9 mg/dl (8.6-10.4); POTASSIUM 3.7 mmol/L (3.6-5.2)
--- NOTE | 2017-04-22 08:43 | CP.PCM.PN ---
Subjective - Date & Time of Evaluation Date of Evaluation: 04/22/17 Time of Evaluation: 09:30 - Subjective Subjective: Patient seen had no Ngt had eaten0 tolerated surgery clarified BM before sending home patienthas no BM up to this point denies other complaints no nausea no vomiting Objective - Vital Signs/Intake and Output Vital Signs (last 24 hours): Temp Pulse Resp BP Pulse Ox 98.4 F 66 20 162/69 H 98 04/22/17 07:39 04/22/17 07:39 04/22/17 07:39 04/22/17 07:39 04/22/17 07:39 Intake and Output: 04/22/17 04/22/17 06:59 18:59 Intake Total 250 Output Total 2 Balance 248 - Medications Medications: Current Medications Amlodipine Besylate (Norvasc) 10 mg PO DAILY [facility] Last Admin: 04/21/17 10:41 Dose: 10 mg Aspirin (Ecotrin) 81 mg PO DAILY [facility] Last Admin: 04/21/17 17:41 Dose: 81 mg Enoxaparin Sodium (Lovenox) 40 mg SC DAILY [facility] Last Admin: 04/21/17 17:41 Dose: 40 mg Furosemide (Lasix) 20 mg PO DAILY [facility] Last Admin: 04/21/17 10:41 Dose: 20 mg Hydrochlorothiazide (Hydrodiuril) 25 mg PO DAILY [facility] Last Admin: 04/21/17 10:40 Dose: 25 mg Losartan Potassium (Cozaar) 100 mg PO DAILY [facility] Last Admin: 04/21/17 10:41 Dose: 100 mg Metoprolol Tartrate (Lopressor) 50 mg PO DAILY [facility] Morphine Sulfate (Morphine) 1 mg IV Q4 PRN PRN Reason: pain Last Admin: 04/19/17 22:24 Dose: 1 mg Ondansetron HCl (Zofran Inj) 4 mg IVP Q4H PRN PRN Reason: Nausea/Vomiting Pantoprazole Sodium (Protonix Susp) 40 mg PO DAILY [facility] Last Admin: 04/21/17 10:41 Dose: 40 mg Phenol/Menthol (Phenaseptic 1.4% Throat [place]) 1 ml MT Q2H PRN PRN Reason: Sore Throat Rosuvastatin Calcium (Crestor) 10 mg PO HS [facility] Last Admin: 04/21/17 21:52 Dose: 10 mg - Labs Labs: 04/22/17 07:54 04/22/17 07:54 PT 10.7 SECONDS (9.7-12.2) 04/19/17 06:11 INR 1.0 04/19/17 06:11 APTT 35 SECONDS (21-34) H 04/19/17 06:11 - Constitutional Appears: Non-toxic - Head Exam Head Exam: ATRAUMATIC, NORMOCEPHALIC - Eye Exam Eye Exam: Normal appearance - ENT Exam ENT Exam: Mucous Membranes Moist - Respiratory Exam Respiratory Exam: Clear to Ausculation Bilateral, NORMAL BREATHING PATTERN - GI/Abdominal Exam GI & Abdominal Exam: Soft, Diminished Bowel Sounds. absent: Tenderness - Neurological Exam Neurological Exam: Alert, Awake, Normal Gait, Oriented x3 - Psychiatric Exam Psychiatric exam: Normal Affect, Normal Mood - Skin Skin Exam: Intact, Normal Color Assessment and Plan - Assessment and Plan (Free Text) Assessment: Patient with SBO_ with improved pain after NGT- awaiting BM prior yto discharge as per surgery NIDDM- started feeding- will adjust DM meds accordingly Hypertension- adjusted and monitro CRI- stable Hypokalemia corrected Anemia of chronic disease- stable Debility referred to PT
--- NOTE | 2017-04-22 09:05 | CP.PCM.PN ---
Subjective - Date & Time of Evaluation Date of Evaluation: 04/22/17 Time of Evaluation: 07:25 - Subjective Subjective: General surgery progress note for Dr. Magnus Cade, PGY-1 Pt S & E at bedside. Pt admits to flatus, ambulation, no recent BM. Denies N & V, F & C, ab pain. Tolerating diet. Objective - Vital Signs/Intake and Output Vital Signs (last 24 hours): Temp Pulse Resp BP Pulse Ox 98.4 F 66 20 162/69 H 98 04/22/17 07:39 04/22/17 07:39 04/22/17 07:39 04/22/17 07:39 04/22/17 07:39 Intake and Output: 04/22/17 04/22/17 06:59 18:59 Intake Total 250 Output Total 2 Balance 248 - Medications Medications: Current Medications Amlodipine Besylate (Norvasc) 10 mg PO DAILY [facility] Last Admin: 04/21/17 10:41 Dose: 10 mg Aspirin (Ecotrin) 81 mg PO DAILY [facility] Last Admin: 04/21/17 17:41 Dose: 81 mg Enoxaparin Sodium (Lovenox) 40 mg SC DAILY [facility] Last Admin: 04/21/17 17:41 Dose: 40 mg Furosemide (Lasix) 20 mg PO DAILY [facility] Last Admin: 04/21/17 10:41 Dose: 20 mg Hydrochlorothiazide (Hydrodiuril) 25 mg PO DAILY [facility] Last Admin: 04/21/17 10:40 Dose: 25 mg Losartan Potassium (Cozaar) 100 mg PO DAILY [facility] Last Admin: 04/21/17 10:41 Dose: 100 mg Metoprolol Tartrate (Lopressor) 50 mg PO DAILY [facility] Morphine Sulfate (Morphine) 1 mg IV Q4 PRN PRN Reason: pain Last Admin: 04/19/17 22:24 Dose: 1 mg Ondansetron HCl (Zofran Inj) 4 mg IVP Q4H PRN PRN Reason: Nausea/Vomiting Pantoprazole Sodium (Protonix Susp) 40 mg PO DAILY [facility] Last Admin: 04/21/17 10:41 Dose: 40 mg Phenol/Menthol (Phenaseptic 1.4% Throat [place]) 1 ml MT Q2H PRN PRN Reason: Sore Throat Rosuvastatin Calcium (Crestor) 10 mg PO HS [facility] Last Admin: 04/21/17 21:52 Dose: 10 mg - Labs Labs: 04/22/17 07:54 04/22/17 07:54 PT 10.7 SECONDS (9.7-12.2) 04/19/17 06:11 INR 1.0 04/19/17 06:11 APTT 35 SECONDS (21-34) H 04/19/17 06:11 - Constitutional Appears: Non-toxic, No Acute Distress - Head Exam Head Exam: ATRAUMATIC, NORMAL INSPECTION, NORMOCEPHALIC - Eye Exam Eye Exam: EOMI, Normal appearance - ENT Exam ENT Exam: Mucous Membranes Moist, Normal Exam - Neck Exam Neck Exam: Full ROM, Normal Inspection - Respiratory Exam Respiratory Exam: NORMAL BREATHING PATTERN - Cardiovascular Exam Cardiovascular Exam: REGULAR RHYTHM, +S1, +S2 - GI/Abdominal Exam GI & Abdominal Exam: Soft, Normal Bowel Sounds. absent: Distended, Firm, Guarding, Rigid, Tenderness, Rebound Additional comments: Well healed midline scar - Extremities Exam Extremities Exam: Normal Inspection. absent: Tenderness - Neurological Exam Neurological Exam: Alert, Awake, CN II-XII Intact, Oriented x3 - Psychiatric Exam Psychiatric exam: Normal Affect, Normal Mood - Skin Skin Exam: Dry, Intact, Normal Color, Warm Assessment and Plan - Assessment and Plan (Free Text) Assessment: 81M w/SBO- resolved Plan: Encourage ambulation Cont regular diet OK to d/c home after BM from surgical standpoint DW attending Alyssia, PGY-1
[2017-04-22] MEDS: Pantoprazole 40 mg Susp UD PO SCH (09:56)
[2017-04-22] MEDS: Enoxaparin 40 mg Syringe SC SCH (09:56)
--- NOTE | 2017-04-22 20:42 | CP.PCM.PN ---
Subjective - Date & Time of Evaluation Date of Evaluation: 04/22/17 Time of Evaluation: 15:10 - Subjective Subjective: Patient seen and evaluated Denies chest pain and dyspnea Passed flatus but no BM Will continue to monitor Objective - Vital Signs/Intake and Output Vital Signs (last 24 hours): Temp Pulse Resp BP Pulse Ox 97.9 F 57 L 20 157/70 H 98 04/22/17 15:00 04/22/17 15:00 04/22/17 15:00 04/22/17 15:00 04/22/17 15:00 Intake and Output: 04/22/17 04/23/17 18:59 06:59 Intake Total 450 Balance 450 - Medications Medications: Current Medications Amlodipine Besylate (Norvasc) 10 mg PO DAILY [facility] Last Admin: 04/22/17 09:55 Dose: 10 mg Aspirin (Ecotrin) 81 mg PO DAILY [facility] Last Admin: 04/22/17 09:56 Dose: 81 mg Enoxaparin Sodium (Lovenox) 40 mg SC DAILY [facility] Last Admin: 04/22/17 09:56 Dose: 40 mg Furosemide (Lasix) 20 mg PO DAILY [facility] Last Admin: 04/22/17 09:56 Dose: 20 mg Hydrochlorothiazide (Hydrodiuril) 25 mg PO DAILY [facility] Last Admin: 04/22/17 09:56 Dose: 25 mg Losartan Potassium (Cozaar) 100 mg PO DAILY [facility] Last Admin: 04/22/17 09:55 Dose: 100 mg Metoprolol Tartrate (Lopressor) 50 mg PO DAILY [facility] Last Admin: 04/22/17 09:55 Dose: 50 mg Morphine Sulfate (Morphine) 1 mg IV Q4 PRN PRN Reason: pain Last Admin: 04/19/17 22:24 Dose: 1 mg Ondansetron HCl (Zofran Inj) 4 mg IVP Q4H PRN PRN Reason: Nausea/Vomiting Pantoprazole Sodium (Protonix Susp) 40 mg PO DAILY [facility] Last Admin: 04/22/17 09:56 Dose: 40 mg Phenol/Menthol (Phenaseptic 1.4% Throat [place]) 1 ml MT Q2H PRN PRN Reason: Sore Throat Rosuvastatin Calcium (Crestor) 10 mg PO HS [facility] Last Admin: 04/21/17 21:52 Dose: 10 mg - Labs Labs: 04/22/17 07:54 04/22/17 07:54 PT 10.7 SECONDS (9.7-12.2) 04/19/17 06:11 INR 1.0 04/19/17 06:11 APTT 35 SECONDS (21-34) H 04/19/17 06:11
--- NOTE | 2017-04-23 05:39 | CP.PCM.PN ---
Subjective - Date & Time of Evaluation Date of Evaluation: 04/23/17 Time of Evaluation: 05:38 - Subjective Subjective: Gen Surg: Dr Seymour Pt S&E. Condition unchanged. Denies any further N/V. Passing flatus. Has not had BM yesterday but did have one on sunday. Pt cleared from surgery for discharge Objective - Vital Signs/Intake and Output Vital Signs (last 24 hours): Temp Pulse Resp BP Pulse Ox 97.8 F 68 20 174/55 H 98 04/23/17 00:00 04/23/17 00:00 04/23/17 00:00 04/23/17 00:00 04/23/17 00:00 Intake and Output: 04/22/17 04/23/17 18:59 06:59 Intake Total 450 Balance 450 - Medications Medications: Current Medications Amlodipine Besylate (Norvasc) 10 mg PO DAILY [facility] Last Admin: 04/22/17 09:55 Dose: 10 mg Aspirin (Ecotrin) 81 mg PO DAILY [facility] Last Admin: 04/22/17 09:56 Dose: 81 mg Enoxaparin Sodium (Lovenox) 40 mg SC DAILY [facility] Last Admin: 04/22/17 09:56 Dose: 40 mg Furosemide (Lasix) 20 mg PO DAILY [facility] Last Admin: 04/22/17 09:56 Dose: 20 mg Hydrochlorothiazide (Hydrodiuril) 25 mg PO DAILY [facility] Last Admin: 04/22/17 09:56 Dose: 25 mg Losartan Potassium (Cozaar) 100 mg PO DAILY [facility] Last Admin: 04/22/17 09:55 Dose: 100 mg Metoprolol Tartrate (Lopressor) 50 mg PO DAILY [facility] Last Admin: 04/22/17 09:55 Dose: 50 mg Morphine Sulfate (Morphine) 1 mg IV Q4 PRN PRN Reason: pain Last Admin: 04/19/17 22:24 Dose: 1 mg Ondansetron HCl (Zofran Inj) 4 mg IVP Q4H PRN PRN Reason: Nausea/Vomiting Pantoprazole Sodium (Protonix Susp) 40 mg PO DAILY [facility] Last Admin: 04/22/17 09:56 Dose: 40 mg Phenol/Menthol (Phenaseptic 1.4% Throat [place]) 1 ml MT Q2H PRN PRN Reason: Sore Throat Rosuvastatin Calcium (Crestor) 10 mg PO HS [facility] Last Admin: 04/22/17 21:50 Dose: 10 mg - Labs Labs: 04/22/17 07:54 04/22/17 07:54 PT 10.7 SECONDS (9.7-12.2) 04/19/17 06:11 INR 1.0 04/19/17 06:11 APTT 35 SECONDS (21-34) H 04/19/17 06:11 - Constitutional Appears: Non-toxic, No Acute Distress - Respiratory Exam Respiratory Exam: absent: Respiratory Distress - Cardiovascular Exam Cardiovascular Exam: REGULAR RHYTHM - GI/Abdominal Exam GI & Abdominal Exam: Soft. absent: Distended, Tenderness Assessment and Plan - Assessment and Plan (Free Text) Assessment: 81M with SBO; resolved Plan: clear for discharge d/w Dr Lion Pappas, PGY3
[2017-04-23 06:55] LABS: HEMATOCRIT 29.9 % (35.0-51.0); MEAN CELL VOLUME 62.5 fL (80.0-94.0); MEAN CORPUSCULAR HEMOGLOBIN 20.1 pg (27.0-31.0); MEAN CORPUSCULAR HGB CONC 32.1 g/dL (33.0-37.0); MEAN PLATELET VOLUME 8.9 fL (7.2-11.7); RED CELL DISTRIBUTION WIDTH 15.7 % (11.5-14.5); WHITE BLOOD COUNT 6.9 K/uL (4.8-10.8)
[2017-04-23 07:04] LABS: CALCIUM 7.3 mg/dl (8.6-10.4); POTASSIUM 3.4 mmol/L (3.6-5.2)
[2017-04-23 07:44] VITALS: PULSE 74; TEMP 97.9; O2SAT 97
[2017-04-23] MEDS: Pantoprazole 40 mg Susp UD PO SCH (09:07)
[2017-04-23] MEDS: Enoxaparin 40 mg Syringe SC SCH (09:07)
[2017-04-23 09:09] VITALS: BP 179/78
--- NOTE | 2017-04-23 10:23 | CP.PCM.PN ---
Subjective - Date & Time of Evaluation Date of Evaluation: 04/23/17 Time of Evaluation: 10:15 - Subjective Subjective: patient seen happy wants to go home had bowel movement with no pain no vomiting discussion of diet further plan will see patient first week of april in the clinic Objective - Vital Signs/Intake and Output Vital Signs (last 24 hours): Temp Pulse Resp BP Pulse Ox 97.9 F 74 20 179/78 H 97 04/23/17 07:41 04/23/17 07:41 04/23/17 07:41 04/23/17 09:08 04/23/17 07:41 - Medications Medications: Current Medications Amlodipine Besylate (Norvasc) 10 mg PO DAILY [facility] Last Admin: 04/23/17 09:07 Dose: 10 mg Aspirin (Ecotrin) 81 mg PO DAILY [facility] Last Admin: 04/23/17 09:08 Dose: 81 mg Enoxaparin Sodium (Lovenox) 40 mg SC DAILY [facility] Last Admin: 04/23/17 09:07 Dose: 40 mg Furosemide (Lasix) 20 mg PO DAILY [facility] Last Admin: 04/23/17 09:08 Dose: 20 mg Hydrochlorothiazide (Hydrodiuril) 25 mg PO DAILY [facility] Last Admin: 04/23/17 09:08 Dose: 25 mg Losartan Potassium (Cozaar) 100 mg PO DAILY [facility] Last Admin: 04/23/17 09:08 Dose: 100 mg Metoprolol Tartrate (Lopressor) 50 mg PO DAILY [facility] Last Admin: 04/23/17 09:07 Dose: 50 mg Morphine Sulfate (Morphine) 1 mg IV Q4 PRN PRN Reason: pain Last Admin: 04/19/17 22:24 Dose: 1 mg Ondansetron HCl (Zofran Inj) 4 mg IVP Q4H PRN PRN Reason: Nausea/Vomiting Pantoprazole Sodium (Protonix Susp) 40 mg PO DAILY [facility] Last Admin: 04/23/17 09:07 Dose: 40 mg Phenol/Menthol (Phenaseptic 1.4% Throat [place]) 1 ml MT Q2H PRN PRN Reason: Sore Throat Rosuvastatin Calcium (Crestor) 10 mg PO HS [facility] Last Admin: 04/22/17 21:50 Dose: 10 mg - Labs Labs: 04/23/17 06:45 04/23/17 06:45 PT 10.7 SECONDS (9.7-12.2) 04/19/17 06:11 INR 1.0 04/19/17 06:11 APTT 35 SECONDS (21-34) H 04/19/17 06:11 - Constitutional Appears: No Acute Distress - Head Exam Head Exam: ATRAUMATIC, NORMOCEPHALIC - Eye Exam Eye Exam: Normal appearance - ENT Exam ENT Exam: Mucous Membranes Moist - Respiratory Exam Respiratory Exam: Clear to Ausculation Bilateral, NORMAL BREATHING PATTERN - Cardiovascular Exam Cardiovascular Exam: REGULAR RHYTHM - GI/Abdominal Exam GI & Abdominal Exam: Soft, Normal Bowel Sounds. absent: Tenderness - Neurological Exam Neurological Exam: Alert, Awake, Normal Gait, Oriented x3 - Psychiatric Exam Psychiatric exam: Normal Affect, Normal Mood - Skin Skin Exam: Intact, Normal Color Assessment and Plan - Assessment and Plan (Free Text) Assessment: patient with SBO_ resolved improved with medical treatment with no surgical intervention patient stable can go home Hypertension will adjust medication IDDM- patient instructed to resume medication since he is back to feeding CRI Anemi will monitor gfollow up in the clinic in a week
--- NOTE | 2017-04-23 10:28 | CP.PCM.DIS ---
Provider - Provider Date of Admission: 04/19/17 11:43 Attending physician: Ana Noel MD Time Spent in preparation of Discharge (in minutes): 30 Hospital Course - Lab Results Lab Results: Most Recent Lab Values WBC 6.9 K/uL (4.8-10.8) 04/23/17 06:45 RBC 4.78 Mil/uL (4.40-5.90) 04/23/17 06:45 Hgb 9.6 g/dL (12.0-18.0) L 04/23/17 06:45 Hct 29.9 % (35.0-51.0) L 04/23/17 06:45 MCV 62.5 fL (80.0-94.0) L 04/23/17 06:45 MCH 20.1 pg (27.0-31.0) L 04/23/17 06:45 MCHC 32.1 g/dL (33.0-37.0) L 04/23/17 06:45 RDW 15.7 % (11.5-14.5) H 04/23/17 06:45 Plt Count 149 K/uL (130-400) 04/23/17 06:45 MPV 8.9 fL (7.2-11.7) 04/23/17 06:45 Neut % (Auto) 75.5 % (50.0-75.0) H 04/19/17 20:09 Lymph % (Auto) 13.2 % (20.0-40.0) L 04/19/17 20:09 [place] % (Auto) 8.9 % (0.0-10.0) 04/19/17 20:09 Eos % (Auto) 2.1 % (0.0-4.0) 04/19/17 20:09 Baso % (Auto) 0.3 % (0.0-2.0) 04/19/17 20:09 Neut # 7.8 K/uL (1.8-7.0) H 04/19/17 20:09 Lymph # 1.4 K/uL (1.0-4.3) 04/19/17 20:09 [place] # 0.9 K/uL (0.0-0.8) H 04/19/17 20:09 Eos # 0.2 K/uL (0.0-0.7) 04/19/17 20:09 Baso # 0.0 K/uL (0.0-0.2) 04/19/17 20:09 PT 10.7 SECONDS (9.7-12.2) 04/19/17 06:11 INR 1.0 04/19/17 06:11 APTT 35 SECONDS (21-34) H 04/19/17 06:11 Sodium 133 mmol/L (132-148) 04/23/17 06:45 Potassium 3.4 mmol/L (3.6-5.2) L 04/23/17 06:45 Chloride 98 mmol/L (98-107) 04/23/17 06:45 Carbon Dioxide 25 mmol/L (22-30) 04/23/17 06:45 Anion Gap 13 (10-20) 04/23/17 06:45 BUN 31 mg/dL (9-20) H 04/23/17 06:45 Creatinine 2.5 mg/dL (0.8-1.5) H 04/23/17 06:45 Est GFR ( Amer) 30 04/23/17 06:45 Est GFR (Non-Af Amer) 25 04/23/17 06:45 POC Glucose (mg/dL) 126 mg/dL (65-110) H 04/23/17 06:59 Random Glucose 129 mg/dL (75-110) H 04/23/17 06:45 Lactic Acid 1.8 mmol/L (0.7-2.1) 04/19/17 13:42 Calcium 7.3 mg/dl (8.6-10.4) L 04/23/17 06:45 Total Bilirubin 0.6 mg/dL (0.2-1.3) 04/19/17 06:08 AST 24 U/L (17-59) 04/19/17 06:08 ALT 27 U/L (21-72) 04/19/17 06:08 Alkaline Phosphatase 74 U/L (38-126) 04/19/17 06:08 Troponin I 0.0230 ng/mL (0.00-0.120) 04/19/17 06:08 NT-Pro-B Natriuret Pep 801 pg/mL (0-900) 04/19/17 06:08 Total Protein 7.3 g/dL (6.3-8.3) 04/19/17 06:08 Albumin 4.4 g/dL (3.5-5.0) 04/19/17 06:08 Globulin 2.9 gm/dL (2.2-3.9) 04/19/17 06:08 Albumin/Globulin Ratio 1.5 (1.0-2.1) 04/19/17 06:08 Lipase 170 U/L (23-300) 04/19/17 06:08 Procalcitonin 0.08 NG/ML (0.19-0.49) L 04/19/17 11:38 Urine Color Straw (YELLOW) 04/19/17 07:05 Urine Clarity Clear (Clear) 04/19/17 07:05 Urine pH 5.0 (5.0-8.0) 04/19/17 07:05 Ur Specific [place] 1.012 (1.003-1.030) 04/19/17 07:05 Urine Protein 2+ mg/dL (NEGATIVE) H 04/19/17 07:05 Urine Glucose (UA) 2+ mg/dL (Normal) H 04/19/17 07:05 Urine Ketones Negative mg/dL (NEGATIVE) 04/19/17 07:05 Urine Blood Negative (NEGATIVE) 04/19/17 07:05 Urine Nitrate Negative (NEGATIVE) 04/19/17 07:05 Urine Bilirubin Negative (NEGATIVE) 04/19/17 07:05 Urine Urobilinogen Normal mg/dL (0.2-1.0) 04/19/17 07:05 Ur Leukocyte Esterase Neg [place]/uL (Negative) 04/19/17 07:05 Urine WBC (Auto) < 1 /hpf (0-5) 04/19/17 07:05 Urine RBC (Auto) 1 /hpf (0-3) 04/19/17 07:05 Ur Squamous Epith Cells < 1 /hpf (0-5) 04/19/17 07:05 - Hospital Course Hospital Course: patient admitted for abdominal pain difficulty passing BM- was placed on NGT suction andNPO and improved had BM accodingly and was sent home without surgical intervention Discharge Exam - Head Exam Head Exam: ATRAUMATIC, NORMOCEPHALIC - Eye Exam Eye Exam: Normal appearance. absent: Nystagmus - ENT Exam ENT Exam: Mucous Membranes Moist - Neck Exam Neck exam: Full Rom - Respiratory Exam Respiratory Exam: Clear to PA & Lateral, NORMAL BREATHING PATTERN - GI/Abdominal Exam GI & Abdominal Exam: Normal Bowel Sounds, Soft. absent: Tenderness - Extremities Exam Extremities exam: full ROM - Neurological Exam Neurological exam: Alert, Normal Gait, Oriented x3 - Psychiatric Exam Psychiatric exam: Normal Affect, Normal Mood - Skin Skin Exam: Intact, Normal Color Discharge Plan - Follow Up Plan Condition: GUARDED Disposition: HOME/ ROUTINE
--- NOTE | 2017-04-23 22:02 | CP.PCM.PN ---
Subjective - Date & Time of Evaluation Date of Evaluation: 04/23/17 Time of Evaluation: 07:30 - Subjective Subjective: Patient seen and evaluated Denies chest pain and dyspnea No abdominal pain Possible d/c today Objective - Vital Signs/Intake and Output Vital Signs (last 24 hours): Temp Pulse Resp BP Pulse Ox 97.9 F 74 20 179/78 H 97 04/23/17 07:41 04/23/17 07:41 04/23/17 07:41 04/23/17 09:08 04/23/17 07:41 - Labs Labs: 04/23/17 06:45 04/23/17 06:45 PT 10.7 SECONDS (9.7-12.2) 04/19/17 06:11 INR 1.0 04/19/17 06:11 APTT 35 SECONDS (21-34) H 04/19/17 06:11
== END 2017-04-23 13:00 | disposition home or self-care (01) | DRG 389 ==
LOC: C.ER 05:30 → C.9E 11:43 → C.3T 15:34
PROVIDERS: ADMIT Internal Medicine; ATTEND Internal Medicine
DX: K56.50 Intestinal adhesions [bands], unspecified as to partial versus complete obstruction (principal); I13.0 Hypertensive heart and chronic kidney disease with heart failure and stage 1 through stage 4 chronic kidney disease, or unspecified chronic kidney disease; N18.4 Chronic kidney disease, stage 4 (severe); E11.22 Type 2 diabetes mellitus with diabetic chronic kidney disease; I48.91 Unspecified atrial fibrillation; I50.9 Heart failure, unspecified; E78.00 Pure hypercholesterolemia, unspecified; E87.6 Hypokalemia; I25.10 Atherosclerotic heart disease of native coronary artery without angina pectoris; I25.2 Old myocardial infarction; J44.9 Chronic obstructive pulmonary disease, unspecified; D63.8 Anemia in other chronic diseases classified elsewhere; Z79.02 Long term (current) use of antithrombotics/antiplatelets; Z79.4 Long term (current) use of insulin; Z79.82 Long term (current) use of aspirin; Z85.46 Personal history of malignant neoplasm of prostate; Z87.891 Personal history of nicotine dependence; Z95.5 Presence of coronary angioplasty implant and graft

== ENCOUNTER 2017-11-21 19:54 | Emergency (ER) | payer OTHER, MEDICARE ==
[2017-11-21 19:54] VITALS: BMI 23.1
[2017-11-21 20:09] VITALS: TEMP 98.4
--- NOTE | 2017-11-21 20:28 | C.PDOC ---
Time Seen by Provider: 11/21/17 20:11 Chief Complaint (Nursing): Abnormal Skin Integrity Past Medical History Vital Signs: Last Vital Signs Temp 98.4 F 11/21/17 20:03 Pulse 60 11/21/17 20:03 Resp 22 11/21/17 20:03 BP 206/57 H 11/21/17 20:03 Pulse Ox 99 11/21/17 20:03 - Medical History PMH: Anemia, CHF, COPD, Diabetes, Diverticulitis, HTN, Hypercholesterolemia, Mitral Valve Prolapse, Obstructive Bowel, Pneumonia, Chronic Kidney Disease Surgical History: Appendectomy, Coronary Stent (3 yrs), Endoscopy - [facility] Procedures CYSTOSCOPY NEC (11/20/13) INSERT INDWELLING CATH (11/20/13) INSPECTION OF LOWER INTESTINAL TRACT, ENDO (07/27/16) INSPECTION OF UPPER INTESTINAL TRACT, ENDO (07/27/16) INTRODUCTION OF OTHER THERAPEUTIC SUBSTANCE INTO UP GI, ENDO (07/27/16) OTH LYSIS-PERITONEAL ADHES (11/20/13) URETHRAL DILATION (11/20/13) Family History: States: Unknown Family Hx - Social History Hx Tobacco Use: No Hx Alcohol Use: Yes (occasionally) Hx Substance Use: No - Immunization History Hx Tetanus Toxoid Vaccination: No Hx Influenza Vaccination: No Hx Pneumococcal Vaccination: Yes ED Course And Treatment O2 Sat by Pulse Oximetry: 99 Disposition - Disposition
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
[2017-11-21 20:42] VITALS: BP 203/76; PULSE 58; RESP 20
[2017-11-21 20:53] VITALS: O2SAT 99
== END 2017-11-21 21:03 | disposition home or self-care (01) ==
LOC: C.ER 19:54
DX: Z04.1 Encounter for examination and observation following transport accident (principal); V49.59XA Passenger injured in collision with other motor vehicles in traffic accident, initial encounter; Y92.410 Unspecified street and highway as the place of occurrence of the external cause; E11.9 Type 2 diabetes mellitus without complications

== ENCOUNTER 2018-06-06 03:06 | Inpatient (IN) | payer MEDICARE ==
[2018-06-06 03:06] VITALS: BMI 23.1
--- NOTE | 2018-06-06 03:28 | C.PDOC ---
History Of Present Illness Patient ate sahni soup at dinner, and now presents with abdominal bloating, cramping. States he feels"backed up" and unable to have any flatus. Speaking in complete sentences. No f/c/n/v. Is a niddm Time Seen by Provider: 06/06/18 03:27 Chief Complaint (Nursing): Abdominal Pain History Per: Patient History/Exam Limitations: no limitations Onset/Duration Of Symptoms: Hrs Current Symptoms Are (Timing): Still Present Context: Food Severity: Moderate Pain Scale Rating Of: 5 Location Of Pain/Discomfort: Diffuse Radiation Of Pain To:: Back Quality Of Discomfort: Dull, Cramping, Pressure Associated Symptoms: denies: Fever, Chills, Nausea, Vomiting Exacerbating Factors: None Alleviating Factors: None Last Bowel Movement: Yesterday Recent travel outside of the [place]: No Additional History Per: Family Past Medical History Reviewed: Historical Data, Nursing Documentation, Vital Signs Vital Signs: Last Vital Signs Temp 97.7 F 06/06/18 03:13 Pulse 73 06/06/18 03:13 Resp 18 06/06/18 03:13 BP 198/65 H 06/06/18 03:13 Pulse Ox 99 06/06/18 03:13 - Medical History PMH: Anemia, CHF, COPD, Diabetes, Diverticulitis, HTN, Hypercholesterolemia, Mitral Valve Prolapse, Obstructive Bowel, Pneumonia, Chronic Kidney Disease Surgical History: Appendectomy, Coronary Stent (3 yrs), Endoscopy - [facility] Procedures CYSTOSCOPY NEC (11/20/13) INSERT INDWELLING CATH (11/20/13) INSPECTION OF LOWER INTESTINAL TRACT, ENDO (07/27/16) INSPECTION OF UPPER INTESTINAL TRACT, ENDO (07/27/16) INTRODUCTION OF OTHER THERAPEUTIC SUBSTANCE INTO UP GI, ENDO (07/27/16) OTH LYSIS-PERITONEAL ADHES (11/20/13) URETHRAL DILATION (11/20/13) Family History: States: No Known Family Hx - Social History Hx Tobacco Use: No Hx Alcohol Use: Yes (occasionally) Hx Substance Use: No - Immunization History Hx Tetanus Toxoid Vaccination: No Hx Influenza Vaccination: Yes Hx Pneumococcal Vaccination: Yes Review Of Systems Constitutional: Negative for: Fever, Chills Cardiovascular: Negative for: Chest Pain Respiratory: Negative for: Shortness of Breath Gastrointestinal: Positive for: Abdominal Pain. Negative for: Nausea, Vomiting Genitourinary: Negative for: Dysuria Musculoskeletal: Negative for: Back Pain Skin: Negative for: Rash Neurological: Negative for: Weakness Psych: Negative for: Anxiety Physical Exam - Physical Exam Appears: Non-toxic, No Acute Distress Skin: Warm, Dry Oral Mucosa: Moist Neck: Supple Chest: Symmetrical Cardiovascular: Rhythm Regular Respiratory: No Rales, No Rhonchi, No Wheezing Gastrointestinal/Abdominal: Bowel Sounds (tympanic to percussion), Soft, Tenderness, Distention, No Guarding, No Rebound Back: Normal Inspection Extremity: Normal ROM Extremity: Bilateral: Atraumatic Neurological/Psych: Oriented x3 Gait: Steady ED Course And Treatment - Laboratory Results Result Diagrams: 06/06/18 03:46 06/06/18 03:46 ECG: Interpreted By Me, Viewed By Me ECG Rhythm: Sinus Rhythm (71), 1st Degree HB, Nonspecific Changes O2 Sat by Pulse Oximetry: 99 Pulse Ox Interpretation: Normal Progress Note: i've placed an 18 fr NGT right nare without difficulty. about 200 cc of stomach contents drained. PT tolerated the procedure well Disposition Discussed With Dr.: Ana Noel Comment: accepted the pt on her service and took over the care at 5:44 AM Doctor Will See Patient In The: Hospital Counseled Patient/Family Regarding: Studies Performed, Diagnosis - Disposition Disposition: HOSPITALIZED Disposition Time: 03:28 Condition: FAIR Forms: [facility] (Yakut) - POA Present On Arrival: Poor Glycemic Control - Clinical Impression Clinical Impression: Small bowel obstruction, Abdominal pain in male, Abdominal bloating, Renal insufficiency Decision To Admit - Pt Status Changed To: Hospital Disposition Of: Inpatient - Admit Certification Admit to Inpatient:: After my assessment, the patient will require hospitalization for at least two midnights. This is because of the severity of symptoms shown, intensity of services needed, and/or the medical risk in this patient being treated as an outpatient. - InPatient: Physician Admission Certification:: After my assessment, the patient will r equire hospitalization for at least two midnights. This is because of the severity of symptoms shown, intensity of services needed, and/or the medical risk in this patient being treated as an outpatient. - . Bed Request Type: Regular Admitting Physician: Ana Noel Patient Diagnosis: Small bowel obstruction, Abdominal pain in male, Abdominal bloating, Renal insufficiency
[2018-06-06] MEDS ORDERED: Sodium Chloride 0.9% 1,000 ML ONE (03:49)
[2018-06-06 03:53] LABS: BASO # 0.1 K/uL (0.0-0.2); BASO % 0.8 % (0.0-2.0); EOS # 0.5 K/uL (0.0-0.7); EOS % 3.6 % (0.0-4.0); HEMOGLOBIN 8.3 g/dL (12.0-18.0); LYMPH # 1.4 K/uL (1.0-4.3); LYMPH % 11.2 % (20.0-40.0); MEAN CELL VOLUME 64.1 fL (80.0-94.0); MEAN CORPUSCULAR HEMOGLOBIN 19.5 pg (27.0-31.0); MEAN CORPUSCULAR HGB CONC 30.4 g/dL (33.0-37.0); MEAN PLATELET VOLUME 8.9 fL (7.2-11.7); MONO % 7.9 % (0.0-10.0); NEUT # 9.9 K/uL (1.8-7.0); NEUT % 76.5 % (50.0-75.0); RBC 4.25 Mil/uL (4.40-5.90); RED CELL DISTRIBUTION WIDTH 15.9 % (11.5-14.5); WHITE BLOOD COUNT 12.9 K/uL (4.8-10.8)
[2018-06-06] MEDS: Sodium Chloride 0.9% 1,000 ML IV ONE ×2 (03:53→11:12)
[2018-06-06 04:00] LABS: VENOUS BLOOD GAS BASE EXCESS -3.6 mmol/L (0.0-2.0); VENOUS BLOOD GAS PCO2 38 mmHg (40-60); VENOUS BLOOD GAS PO2 29 mm/Hg (30-55); VENOUS BLOOD PH 7.36 (7.32-7.43)
[2018-06-06 04:01] LABS: INR 1.1; PROTHROMBIN TIME 11.9 SECONDS (9.7-12.2)
[2018-06-06 04:08] LABS: ALB/GLOB RATIO 1.4 (1.0-2.1); ALBUMIN 4.4 g/dL (3.5-5.0); CALCIUM 8.3 mg/dl (8.6-10.4)
[2018-06-06 05:17] LABS: URINE BILIRUBIN NEGATIVE (NEGATIVE); URINE BLOOD NEGATIVE (NEGATIVE); URINE CLARITY Clear (Clear); URINE COLOR Straw (YELLOW); URINE GLUCOSE (UA) 1+ mg/dL (Normal); URINE HYALINE CAST 0-2 /lpf (0-2); URINE LEUKOCYTE ESTERASE NEG Leu/uL (Negative); URINE PROTEIN 3+ mg/dL (NEGATIVE); URINE UROBILINOGEN NORMAL mg/dL (0.2-1.0)
[2018-06-06] MEDS ORDERED: Sodium Chloride 0.9% 1,000 ML IV SCH (06:30)
--- NOTE | 2018-06-06 07:46 | CP.PCM.CON ---
History of Present Illness - History of Present Illness History of Present Illness: SURGERY CONSULT NOTE FOR DR. ANTON Reason: SBO 83M presents with abdominal pain that started yesterday. Patient states the pain is diffuse and achy. He denies nausea, vomiting, fevers and chills. Patient states he has not passed gas since yesterday. Last bowel movement was yesterday. He has a history of small bowel obstruction in 2013 that he was operated for and then 2017 which was managed non-operatively. PMH: HTN, HLD, MVP, DM, SBO, CAD PSH: Appy, prostatectomy, coronary stents*3, Ex-lap DEVIN Social: denies tobacco, alcohol and illicit drugs use Allergies: NKDA Past Patient History - Infectious Disease Hx of Infectious Diseases: None - Tetanus Immunizations Tetanus Immunization: Unknown - Past Medical History & Family History Past Medical History?: Yes - Past Social History Smoking Status: Former Smoker - CARDIAC Hx Congestive Heart Failure: Yes Hx Hypercholesterolemia: Yes Hx Hypertension: Yes Hx Mitral Valve Prolapse: Yes - PULMONARY Hx Chronic Obstructive Pulmonary Disease (COPD): Yes Hx Pneumonia: Yes - NEUROLOGICAL Hx Neurological Disorder: No - HEENT Hx HEENT Problems: Yes Hx Cataracts: Yes (both eyes) - RENAL Hx Chronic Kidney Disease: Yes - ENDOCRINE/METABOLIC Hx Endocrine Disorders: Yes Hx Diabetes Mellitus Type 2: Yes - HEMATOLOGICAL/ONCOLOGICAL Hx Anemia: Yes - INTEGUMENTARY Hx Dermatological Problems: No - GASTROINTESTINAL Hx Diverticulitis: Yes - GENITOURINARY/GYNECOLOGICAL Hx Genitourinary Disorders: Yes Hx Prostate Cancer: Yes - PSYCHIATRIC Hx Substance Use: No - SURGICAL HISTORY Hx Appendectomy: Yes Hx Coronary Stent: Yes (3 yrs) - ANESTHESIA Hx Anesthesia: Yes Hx Anesthesia Reactions: No Hx Malignant Hyperthermia: No Meds Allergies/Adverse Reactions: Allergies Allergy/AdvReac Type Severity Reaction Status Date / Time No Known Allergies Allergy Verified 06/06/18 03:16 - Medications Medications: Current Medications Amlodipine Besylate (Norvasc) 5 mg PO DAILY [facility] Aspirin (Ecotrin) 81 mg PO DAILY PATTI Home Med (Losartan/Hydrochlorothiazide [Losartan-Hctz 100-25 Mg Tab]) 1 each PO DAILY PATTI Home Med (Multivit-Min/Fa/Lycopen/Lutein [Centrum Silver Men Tablet]) 1 each PO DAILY PATTI Sodium Chloride (Sodium Chloride 0.9%) 1,000 mls @ 100 mls/hr IV .Q10H ONE Stop: 06/06/18 13:29 Last Admin: 06/06/18 03:53 Dose: 100 mls/hr Sodium Chloride (Sodium Chloride 0.9%) 1,000 mls @ 60 mls/hr IV .[id number] PATTI Labetalol HCl (Trandate) 50 mg PO AMHS PATTI Pantoprazole Sodium (Protonix Inj) 20 mg IVP DAILY PATTI Rosuvastatin Calcium (Crestor) 10 mg PO HS PATTI Physical Exam - Constitutional Appears: Non-toxic, No Acute Distress - ENT Exam ENT Exam: Mucous Membranes Moist - Respiratory Exam Respiratory Exam: Clear to Auscultation Bilateral, NORMAL BREATHING PATTERN - Cardiovascular Exam Cardiovascular Exam: REGULAR RHYTHM, +S1, +S2 - GI/Abdominal Exam GI & Abdominal Exam: Distended, Soft, Tenderness. absent: Firm, Guarding, Rebound, Rigid Additional comments: full, tender, distended NGT in place with bilious output Ex lap scar noted - Extremities Exam Extremities exam: Negative for: pedal edema, tenderness - Neurological Exam Neurological exam: Alert, Oriented x3 - Psychiatric Exam Psychiatric exam: Normal Affect, Normal Mood - Skin Skin Exam: Dry, Intact, Normal Color, Warm Results - Vital Signs Recent Vital Signs: Last Vital Signs Temp 98.2 F 06/06/18 06:49 Pulse 71 06/06/18 06:49 Resp 20 06/06/18 06:49 BP 182/71 H 06/06/18 06:49 Pulse Ox 95 06/06/18 06:49 - Labs Result Diagrams: 06/06/18 03:46 06/06/18 03:46 Labs: Laboratory Results - last 24 hr 06/06/18 06/06/18 06/06/18 03:44 03:46 03:46 WBC 12.9 H D RBC 4.25 L Hgb 8.3 L Hct 27.2 L MCV 64.1 L MCH 19.5 L MCHC 30.4 L RDW 15.9 H Plt Count 202 MPV 8.9 Neut % (Auto) 76.5 H Lymph % (Auto) 11.2 L [place] % (Auto) 7.9 Eos % (Auto) 3.6 Baso % (Auto) 0.8 Neut # (Auto) 9.9 H Lymph # (Auto) 1.4 [place] # (Auto) 1.0 H Eos # (Auto) 0.5 Baso # (Auto) 0.1 PT 11.9 INR 1.1 APTT 38 H pO2 29 L VBG pH 7.36 VBG pCO2 38 L VBG HCO3 20.9 VBG Total CO2 22.7 VBG O2 Sat (Calc) 60.7 VBG Base Excess -3.6 L VBG Potassium 4.4 Sodium 132.0 Chloride 101.0 Glucose 144 H Lactate 0.9 Potassium Carbon Dioxide Anion Gap BUN Creatinine Est GFR ( Amer) Est GFR (Non-Af Amer) POC Glucose (mg/dL) Random Glucose Calcium Total Bilirubin AST ALT Alkaline Phosphatase Total Protein Albumin Globulin Albumin/Globulin Ratio Lipase Venous Blood Potassium 4.4 Urine Color Urine Clarity Urine pH Ur Specific [place] Urine Protein Urine Glucose (UA) Urine Ketones Urine Blood Urine Nitrate Urine Bilirubin Urine Urobilinogen Ur Leukocyte Esterase Urine WBC (Auto) Urine RBC (Auto) Hyaline Casts B-Hydroxybutyrate 06/06/18 06/06/18 06/06/18 03:46 05:09 06:47 WBC RBC Hgb Hct MCV MCH MCHC RDW Plt Count MPV Neut % (Auto) Lymph % (Auto) [place] % (Auto) Eos % (Auto) Baso % (Auto) Neut # (Auto) Lymph # (Auto) [place] # (Auto) Eos # (Auto) Baso # (Auto) PT INR APTT pO2 VBG pH VBG pCO2 VBG HCO3 VBG Total CO2 VBG O2 Sat (Calc) VBG Base Excess VBG Potassium Sodium 129 L Chloride 94 L Glucose Lactate Potassium 5.1 Carbon Dioxide 20 L Anion Gap 20 BUN 64 H Creatinine 4.2 H Est GFR ( Amer) 16 Est GFR (Non-Af Amer) 14 POC Glucose (mg/dL) 178 H Random Glucose 153 H D Calcium 8.3 L Total Bilirubin 0.6 AST 23 ALT 12 L D Alkaline Phosphatase 106 Total Protein 7.5 Albumin 4.4 Globulin 3.0 Albumin/Globulin Ratio 1.4 Lipase 157 Venous Blood Potassium Urine Color Straw Urine Clarity Clear Urine pH 6.0 Ur Specific [place] 1.011 Urine Protein 3+ H Urine Glucose (UA) 1+ H Urine Ketones Negative Urine Blood Negative Urine Nitrate Negative Urine Bilirubin Negative Urine Urobilinogen Normal Ur Leukocyte Esterase Neg Urine WBC (Auto) < 1 Urine RBC (Auto) 1 Hyaline Casts 0-2 B-Hydroxybutyrate 0.60 H Assessment & Plan - Assessment and Plan (Free Text) Assessment: 83M with SBO Plan: - NPO - IVF - Pain control - Anti emetics - Monitor for flatus - F/u abdominal x-ray tomm AM Discussed with Dr. Lion Rios, PGY3
--- NOTE | 2018-06-06 09:15 | CP.PCM.HP ---
History of Present Illness - History of Present Illness History of Present Illness: 83 y.o. with PMH Hypertension CAD NIDDM2 REcurrent hospitalizations for SBO [facility] CHF admitted due to abdominal pain that showed SBO- patient reports that abdominal pain started one day [employer], after eating monggo. He denies vomiting nor nausea, his last regular BM was a day before. The pain became crampy attacks, he tried to move BM but very small came out,,, abdominal pain worsened hence ER. In ER- Ct abdomen showed SBO, NGT placed and admitted subsequently for further evaluation and management PMH and surgery as above CAD post stent Prostate ca s/p surgery Appendectomy Multiple hospitalization for SBO that resolved spontaneously Dehesion surgery one time Right inguinal Hernia repair NKDA Medication as per list Present on Admission - Present on Admission Any Indicators Present on Admission: Yes History of DVT/PE: No History of Uncontrolled Diabetes: Yes Urinary Catheter: No Decubitus Ulcer Present: No Review of Systems - Constitutional Constitutional: absent: Chills, Fatigue, Fever, Lethargy, Weakness - EENT Eyes: absent: Other Visual Disturbances Ears: absent: Disequilibrium, Dizziness Nose/Mouth/Throat: absent: Epistaxis, Nasal Obstruction, Sore Throat, Neck Pain - Cardiovascular Cardiovascular: absent: Chest Pain, Diaphoresis, Dyspnea, Rapid Heart Rate, Slow Heart Rate, Syncope - Respiratory Respiratory: absent: Cough, Dyspnea on Exertion, Chest Congestion - Gastrointestinal Gastrointestinal: Abdominal Pain, Change in Bowel Habits, Constipation - Genitourinary Genitourinary: absent: Difficulty Urinating - Musculoskeletal Musculoskeletal: absent: Abnormal Gait, Deformity, Joint Swelling, Numbness, Stiffness - Integumentary Integumentary: absent: Rash, Skin Ulcer, Jaundice - Neurological Neurological: absent: Abnormal Gait, Abnormal Hearing, Behavioral Changes, Convulsions, Dizziness, Syncope - Psychiatric Psychiatric: absent: Behavioral Changes, Confusion, Depression - Endocrine Endocrine: absent: Excessive Sweating, Flushing, Polydipsia, Polyphagia, Polyuria - Hematologic/Lymphatic Hematologic: absent: Easy Bleeding, Easy Bruising Past Patient History - Infectious Disease Hx of Infectious Diseases: None - Tetanus Immunizations Tetanus Immunization: Unknown - Past Medical History & Family History Past Medical History?: Yes - Past Social History Smoking Status: Never Smoked - CARDIAC Hx Congestive Heart Failure: Yes Hx Hypercholesterolemia: Yes Hx Hypertension: Yes Hx Mitral Valve Prolapse: Yes - PULMONARY Hx Chronic Obstructive Pulmonary Disease (COPD): Yes Hx Pneumonia: Yes - NEUROLOGICAL Hx Neurological Disorder: No - HEENT Hx HEENT Problems: Yes Hx Cataracts: Yes (both eyes) - RENAL Hx Chronic Kidney Disease: Yes - ENDOCRINE/METABOLIC Hx Endocrine Disorders: Yes Hx Diabetes Mellitus Type 2: Yes - HEMATOLOGICAL/ONCOLOGICAL Hx Anemia: Yes - INTEGUMENTARY Hx Dermatological Problems: No - MUSCULOSKELETAL/RHEUMATOLOGICAL Hx Falls: No - GASTROINTESTINAL Hx Diverticulitis: Yes - GENITOURINARY/GYNECOLOGICAL Hx Genitourinary Disorders: Yes Hx Prostate Cancer: Yes - PSYCHIATRIC Hx Substance Use: No - SURGICAL HISTORY Hx Appendectomy: Yes Hx Coronary Stent: Yes (3 yrs) - ANESTHESIA Hx Anesthesia: Yes Hx Anesthesia Reactions: No Hx Malignant Hyperthermia: No Meds Allergies/Adverse Reactions: Allergies Allergy/AdvReac Type Severity Reaction Status Date / Time No Known Allergies Allergy Verified 06/06/18 03:16 Physical Exam - Constitutional Appears: Non-toxic, No Acute Distress - Head Exam Head Exam: ATRAUMATIC, NORMOCEPHALIC - Eye Exam Eye Exam: Normal appearance - ENT Exam ENT Exam: Mucous Membranes Moist - Neck Exam Neck exam: Positive for: Full Rom. Negative for: Tenderness - Respiratory Exam Respiratory Exam: Clear to Auscultation Bilateral, NORMAL BREATHING PATTERN - Cardiovascular Exam Cardiovascular Exam: REGULAR RHYTHM - GI/Abdominal Exam GI & Abdominal Exam: Soft. absent: Distended (no ditention now, connected to NGT suction ), Guarding, Tenderness - Extremities Exam Extremities exam: Positive for: full ROM, normal inspection. Negative for: joint swelling, pedal edema, tenderness - Neurological Exam Neurological exam: Alert, Normal Gait, Oriented x3 - Psychiatric Exam Psychiatric exam: Normal Affect, Normal Mood - Skin Skin Exam: Intact, Normal Color Results - Vital Signs Recent Vital Signs: Last Vital Signs Temp 97.4 F L 06/06/18 09:05 Pulse 71 06/06/18 09:05 Resp 20 06/06/18 09:05 BP 184/75 H 06/06/18 09:05 Pulse Ox 95 06/06/18 09:05 - Labs Result Diagrams: 06/06/18 03:46 06/06/18 03:46 Labs: Laboratory Results - last 24 hr 06/06/18 06/06/18 06/06/18 03:44 03:46 03:46 WBC 12.9 H D RBC 4.25 L Hgb 8.3 L Hct 27.2 L MCV 64.1 L MCH 19.5 L MCHC 30.4 L RDW 15.9 H Plt Count 202 MPV 8.9 Neut % (Auto) 76.5 H Lymph % (Auto) 11.2 L [place] % (Auto) 7.9 Eos % (Auto) 3.6 Baso % (Auto) 0.8 Neut # (Auto) 9.9 H Lymph # (Auto) 1.4 [place] # (Auto) 1.0 H Eos # (Auto) 0.5 Baso # (Auto) 0.1 PT 11.9 INR 1.1 APTT 38 H pO2 29 L VBG pH 7.36 VBG pCO2 38 L VBG HCO3 20.9 VBG Total CO2 22.7 VBG O2 Sat (Calc) 60.7 VBG Base Excess -3.6 L VBG Potassium 4.4 Sodium 132.0 Chloride 101.0 Glucose 144 H Lactate 0.9 Potassium Carbon Dioxide Anion Gap BUN Creatinine Est GFR ( Amer) Est GFR (Non-Af Amer) POC Glucose (mg/dL) Random Glucose Calcium Total Bilirubin AST ALT Alkaline Phosphatase Total Protein Albumin Globulin Albumin/Globulin Ratio Lipase Venous Blood Potassium 4.4 Urine Color Urine Clarity Urine pH Ur Specific [place] Urine Protein Urine Glucose (UA) Urine Ketones Urine Blood Urine Nitrate Urine Bilirubin Urine Urobilinogen Ur Leukocyte Esterase Urine WBC (Auto) Urine RBC (Auto) Hyaline Casts B-Hydroxybutyrate 06/06/18 06/06/18 06/06/18 03:46 05:09 06:47 WBC RBC Hgb Hct MCV MCH MCHC RDW Plt Count MPV Neut % (Auto) Lymph % (Auto) [place] % (Auto) Eos % (Auto) Baso % (Auto) Neut # (Auto) Lymph # (Auto) [place] # (Auto) Eos # (Auto) Baso # (Auto) PT INR APTT pO2 VBG pH VBG pCO2 VBG HCO3 VBG Total CO2 VBG O2 Sat (Calc) VBG Base Excess VBG Potassium Sodium 129 L Chloride 94 L Glucose Lactate Potassium 5.1 Carbon Dioxide 20 L Anion Gap 20 BUN 64 H Creatinine 4.2 H Est GFR ( Amer) 16 Est GFR (Non-Af Amer) 14 POC Glucose (mg/dL) 178 H Random Glucose 153 H D Calcium 8.3 L Total Bilirubin 0.6 AST 23 ALT 12 L D Alkaline Phosphatase 106 Total Protein 7.5 Albumin 4.4 Globulin 3.0 Albumin/Globulin Ratio 1.4 Lipase 157 Venous Blood Potassium Urine Color Straw Urine Clarity Clear Urine pH 6.0 Ur Specific [place] 1.011 Urine Protein 3+ H Urine Glucose (UA) 1+ H Urine Ketones Negative Urine Blood Negative Urine Nitrate Negative Urine Bilirubin Negative Urine Urobilinogen Normal Ur Leukocyte Esterase Neg Urine WBC (Auto) < 1 Urine RBC (Auto) 1 Hyaline Casts 0-2 B-Hydroxybutyrate 0.60 H Assessment & Plan (1) Small bowel obstruction Assessment and Plan: with history of multiple surgeries, appendectomy, prostate cancer surgery, right inguinal hernia surgery, with repeated SBO hospitalizations , currently on NGT suction, no pain, for further observation, NPO, surgery on case Status: Acute (2) Anemia Assessment and Plan: acute drop in H/H- will transfuse, discussed with patient and daughter, also for prep for impending surgery Status: Acute (3) Coronary arteriosclerosis Assessment and Plan: with history of stent , due to pending surgery- 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 Status: Chronic (4) Hypertension associated with chronic kidney disease due to type 2 diabetes mellitus Assessment and Plan: currently uncontrolled, will adjust BP medications, further monitoring, Creatinine increasing -4 , will call renal , Status: Acute (5) CHF (congestive heart failure) Assessment and Plan: history of CHF, currently no fluid overload, patient is NPO, will place on IVF and monitor for congestion, add lasix Status: Acute (6) Diabetes mellitus Assessment and Plan: will hold DM meds, is currently NPO, on NGT suction, monitor sugar with no coverage for now Status: Acute - Assessment and Plan (Free Text) Assessment: Patient withmultiple medical problems, admitted for another episode of SBO- currently on NGT , no pain, under observation, surgery on case
--- NOTE | 2018-06-06 09:40 | CT ---
Date of service: 06/06/2018 PROCEDURE: CT Abdomen and Pelvis without intravenous contrast HISTORY: abd pain, bloated COMPARISON: Abdomen and pelvis CT 04/19/2017. TECHNIQUE: Helical CT of the abdomen and pelvis was performed without oral or intravenous contrast as per referring physician request. Coronal and sagittal reformats were generated.. Contrast dose: None Radiation dose: Total exam DLP = 271.71 mGy-cm. This CT exam was performed using one or more of the following dose reduction techniques: Automated exposure control, adjustment of the mA and/or kV according to patient size, and/or use of iterative reconstruction technique. FINDINGS: LOWER THORAX: Cardiomegaly reiterated with extensive coronary artery calcifications. No acute infiltrates, pleural or pericardial effusion. LIVER: Unremarkable. No gross lesion or ductal dilatation. GALLBLADDER AND BILE DUCTS: Prior cholecystectomy reiterated. PANCREAS: Unremarkable. No gross lesion or ductal dilatation. SPLEEN: Unremarkable. ADRENALS: Unremarkable. No mass. KIDNEYS AND URETERS: Unremarkable. No hydronephrosis. No solid mass. VASCULATURE: Nonaneurysmal abdominal aortic calcific atherosclerotic changes are identified. BOWEL: Stomach is distended with fluid without gross mural thickening evident. Small bowel is distended by fluid and a bit of gas with fecalization of a loop the begins at the left lower quadrant and transitions at the left upper quadrant to collapsed bowel compatible with high-grade mid to distal small bowel obstruction. Distal small bowel is collapsed. There is variable collapse or distention of colon with the ascending colon and partially filled with retained fecal material in the descending colon completely collapsed. There is no free intrarenal gas or definite mesenteric edema identified. No ascites. APPENDIX: Appendix not identified. Clinically correlate as to whether there is prior appendectomy. No CT evidence to suggest appendicitis. PERITONEUM: Unremarkable. No free fluid. No free air. LYMPH NODES: Unremarkable. No enlarged lymph nodes. BLADDER: Unremarkable. REPRODUCTIVE: Unremarkable. BONES: No acute fracture. OTHER FINDINGS: None. IMPRESSION: High-grade mid to distal small-bowel obstruction transitioning at left upper quadrant abdomen. Surgical consultation recommended. No free intra peritoneal gas collection or abscess identified. Concordant preliminary report from [place], 06/06/2017, 5:37 a.m..
[2018-06-06] MEDS ORDERED: LUTEIN PO SCH (10:00)
[2018-06-06] MEDS ORDERED: [UNRECOGNIZED DRUG - OTHER] PO SCH (10:00)
[2018-06-06] MEDS ORDERED: HYDROCHLOROTHIAZIDE PO SCH (10:00)
[2018-06-06] MEDS ORDERED: LYCOPEN PO SCH (10:00)
[2018-06-06] MEDS ORDERED: MULTIVIT MIN PO SCH (10:00)
[2018-06-06] MEDS ORDERED: LOSARTAN PO SCH (10:00)
[2018-06-06 14:58] LABS: HEMOGLOBIN 8.3 g/dL (12.0-18.0)
--- NOTE | 2018-06-06 18:11 | CP.PCM.CON ---
History of Present Illness - History of Present Illness History of Present Illness: pt is seen and examined, full consult is dictate #[id number] 1. 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 SBO 3. Anemia sec to ckd , can't r/o fe dificiency 4. htn 5. dm check fe,tibc, ferritin, b12, fa, pth intact urine for spep, upep, hept.b,c serology will add epogen 28872 units sc tiw iv fe if fes is <20% c/w ngt suction Past Patient History - Infectious Disease Hx of Infectious Diseases: None - Tetanus Immunizations Tetanus Immunization: Unknown - Past Medical History & Family History Past Medical History?: Yes - Past Social History Smoking Status: Never Smoked - CARDIAC Hx Congestive Heart Failure: Yes Hx Hypercholesterolemia: Yes Hx Hypertension: Yes Hx Mitral Valve Prolapse: Yes - PULMONARY Hx Chronic Obstructive Pulmonary Disease (COPD): Yes Hx Pneumonia: Yes - NEUROLOGICAL Hx Neurological Disorder: No - HEENT Hx HEENT Problems: Yes Hx Cataracts: Yes (both eyes) - RENAL Hx Chronic Kidney Disease: Yes - ENDOCRINE/METABOLIC Hx Endocrine Disorders: Yes Hx Diabetes Mellitus Type 2: Yes - HEMATOLOGICAL/ONCOLOGICAL Hx Anemia: Yes - INTEGUMENTARY Hx Dermatological Problems: No - MUSCULOSKELETAL/RHEUMATOLOGICAL Hx Falls: No - GASTROINTESTINAL Hx Diverticulitis: Yes - GENITOURINARY/GYNECOLOGICAL Hx Genitourinary Disorders: Yes Hx Prostate Cancer: Yes - PSYCHIATRIC Hx Substance Use: No - SURGICAL HISTORY Hx Appendectomy: Yes Hx Coronary Stent: Yes (3 yrs) - ANESTHESIA Hx Anesthesia: Yes Hx Anesthesia Reactions: No Hx Malignant Hyperthermia: No Meds Allergies/Adverse Reactions: Allergies Allergy/AdvReac Type Severity Reaction Status Date / Time No Known Allergies Allergy Verified 06/06/18 03:16 - Medications Medications: Current Medications Amlodipine Besylate (Norvasc) 5 mg PO DAILY [facility] Last Admin: 06/06/18 11:06 Dose: Not Given Aspirin (Ecotrin) 81 mg PO DAILY [facility] Furosemide (Lasix) 10 mg IVP ONCE ONE Stop: 06/06/18 22:01 Home Med (Multivit-Min/Fa/Lycopen/Lutein [Centrum Silver Men Tablet]) 1 each PO DAILY [facility] Sodium Chloride (Sodium Chloride 0.9%) 1,000 mls @ 60 mls/hr IV .[id number] [facility] Last Admin: 06/06/18 11:12 Dose: 60 mls/hr Labetalol HCl (Trandate) 50 mg PO [facility] Last Admin: 06/06/18 11:11 Dose: Not Given Losartan Potassium (Cozaar) 100 mg PO DAILY [facility] Ondansetron HCl (Zofran Inj) 4 mg IVP Q6 PRN PRN Reason: Nausea/Vomiting Pantoprazole Sodium (Protonix Inj) 20 mg IVP DAILY [facility] Last Admin: 06/06/18 11:09 Dose: 20 mg Rosuvastatin Calcium (Crestor) 10 mg PO HS [facility] Results - Vital Signs Recent Vital Signs: Last Vital Signs Temp 99 F 06/06/18 15:55 Pulse 74 06/06/18 15:55 Resp 20 06/06/18 15:55 BP 167/75 H 06/06/18 15:55 Pulse Ox 96 06/06/18 15:55 - Labs Result Diagrams: 06/06/18 14:55 06/06/18 03:46 Labs: Laboratory Results - last 24 hr 06/06/18 06/06/18 06/06/18 03:44 03:46 03:46 WBC 12.9 H D RBC 4.25 L Hgb 8.3 L Hct 27.2 L MCV 64.1 L MCH 19.5 L MCHC 30.4 L RDW 15.9 H Plt Count 202 MPV 8.9 Neut % (Auto) 76.5 H Lymph % (Auto) 11.2 L [place] % (Auto) 7.9 Eos % (Auto) 3.6 Baso % (Auto) 0.8 Neut # (Auto) 9.9 H Lymph # (Auto) 1.4 [place] # (Auto) 1.0 H Eos # (Auto) 0.5 Baso # (Auto) 0.1 PT 11.9 INR 1.1 APTT 38 H pO2 29 L VBG pH 7.36 VBG pCO2 38 L VBG HCO3 20.9 VBG Total CO2 22.7 VBG O2 Sat (Calc) 60.7 VBG Base Excess -3.6 L VBG Potassium 4.4 Sodium 132.0 Chloride 101.0 Glucose 144 H Lactate 0.9 Potassium Carbon Dioxide Anion Gap BUN Creatinine Est GFR ( Amer) Est GFR (Non-Af Amer) POC Glucose (mg/dL) Random Glucose Calcium Total Bilirubin AST ALT Alkaline Phosphatase Total Protein Albumin Globulin Albumin/Globulin Ratio Lipase Venous Blood Potassium 4.4 Urine Color Urine Clarity Urine pH Ur Specific [place] Urine Protein Urine Glucose (UA) Urine Ketones Urine Blood Urine Nitrate Urine Bilirubin Urine Urobilinogen Ur Leukocyte Esterase Urine WBC (Auto) Urine RBC (Auto) Hyaline Casts B-Hydroxybutyrate Blood Type Antibody Screen 06/06/18 06/06/18 06/06/18 03:46 05:09 06:47 WBC RBC Hgb Hct MCV MCH MCHC RDW Plt Count MPV Neut % (Auto) Lymph % (Auto) [place] % (Auto) Eos % (Auto) Baso % (Auto) Neut # (Auto) Lymph # (Auto) [place] # (Auto) Eos # (Auto) Baso # (Auto) PT INR APTT pO2 VBG pH VBG pCO2 VBG HCO3 VBG Total CO2 VBG O2 Sat (Calc) VBG Base Excess VBG Potassium Sodium 129 L Chloride 94 L Glucose Lactate Potassium 5.1 Carbon Dioxide 20 L Anion Gap 20 BUN 64 H Creatinine 4.2 H Est GFR ( Amer) 16 Est GFR (Non-Af Amer) 14 POC Glucose (mg/dL) 178 H Random Glucose 153 H D Calcium 8.3 L Total Bilirubin 0.6 AST 23 ALT 12 L D Alkaline Phosphatase 106 Total Protein 7.5 Albumin 4.4 Globulin 3.0 Albumin/Globulin Ratio 1.4 Lipase 157 Venous Blood Potassium Urine Color Straw Urine Clarity Clear Urine pH 6.0 Ur Specific [place] 1.011 Urine Protein 3+ H Urine Glucose (UA) 1+ H Urine Ketones Negative Urine Blood Negative Urine Nitrate Negative Urine Bilirubin Negative Urine Urobilinogen Normal Ur Leukocyte Esterase Neg Urine WBC (Auto) < 1 Urine RBC (Auto) 1 Hyaline Casts 0-2 B-Hydroxybutyrate 0.60 H Blood Type Antibody Screen 06/06/18 06/06/18 06/06/18 10:00 11:54 14:55 WBC RBC Hgb 8.3 L Hct 27.0 L MCV MCH MCHC RDW Plt Count MPV Neut % (Auto) Lymph % (Auto) [place] % (Auto) Eos % (Auto) Baso % (Auto) Neut # (Auto) Lymph # (Auto) [place] # (Auto) Eos # (Auto) Baso # (Auto) PT INR APTT pO2 VBG pH VBG pCO2 VBG HCO3 VBG Total CO2 VBG O2 Sat (Calc) VBG Base Excess VBG Potassium Sodium Chloride Glucose Lactate Potassium Carbon Dioxide Anion Gap BUN Creatinine Est GFR ( Amer) Est GFR (Non-Af Amer) POC Glucose (mg/dL) 110 Random Glucose Calcium Total Bilirubin AST ALT Alkaline Phosphatase Total Protein Albumin Globulin Albumin/Globulin Ratio Lipase Venous Blood Potassium Urine Color Urine Clarity Urine pH Ur Specific [place] Urine Protein Urine Glucose (UA) Urine Ketones Urine Blood Urine Nitrate Urine Bilirubin Urine Urobilinogen Ur Leukocyte Esterase Urine WBC (Auto) Urine RBC (Auto) Hyaline Casts B-Hydroxybutyrate Blood Type A POSITIVE Antibody Screen Negative
[2018-06-06] MEDS: Dextrose 5%/0.9% NS 1,000 ML IV SCH (22:23)
--- NOTE | 2018-06-07 06:16 | CON ---
DATE: 06/06/2018 LOCATION: The patient is located in room 671, bed B. REQUESTED BY: Dr. Ana Noel. REASON FOR CONSULTATION: Increased BUN and creatinine, anemia, for further evaluation. HISTORY OF PRESENT ILLNESS: Mr. Irving is about 83 years old [place], very pleasant, elderly [place] male with a past medical history significant for longstanding hypertension, diabetes, hyperlipidemia, coronary artery disease, status post stent placement, chronic kidney disease, CHF, status post stent placement in May 2016 who was admitted with chief complaints of sudden onset of abdominal distention, bloating sensation, abdominal pain since yesterday, unable to pass even gas. The patient also complains of abdominal pain. Denies any vomiting. The patient does complain of nausea and denies any headache, dizziness. Denies any chest pain. Denies any fever or cough. Denies any dysuria or frequency. Denies any edema of the legs. PAST MEDICAL HISTORY: Significant for longstanding hypertension, diabetes, hyperlipidemia, chronic kidney disease, proteinuria, coronary artery disease, status post stent placement. PAST SURGICAL HISTORY: Status post hernia repair and also history of appendectomy and lipoma removal on the leg and also prostate surgery and also surgery for intestinal obstruction about 5 years ago. ALLERGIES: NO KNOWN DRUG ALLERGIES. SOCIAL HISTORY: The patient was a former smoker, quit long time ago more than about 40-50 years ago. Occasional intake of wine after dinner. No drug abuse. PERSONAL HISTORY: He is . He has a very supportive and daughter. CURRENT MEDICATIONS: Include as follows: Losartan 100 mg p.o. daily, Crestor 10 mg p.o. at bedtime, IV fluids D5 normal saline at 80 mL/hour, aspirin on hold, amlodipine 5 mg p.o. daily, Protonix 20 mg IV daily, labetalol 50 mg p.o. in the morning and at bedtime, Zofran 4 mg IV every 6 hours p.r.n. FAMILY HISTORY: Not significant. Has a very supportive family. REVIEW OF SYSTEMS: Significant for sudden onset of abdominal distention and abdominal pain. All other review of systems are reviewed and are negative. PHYSICAL EXAMINATION: VITAL SIGNS: As follows: Blood pressure 167/75, pulse 74, respirations 20, temperature 99, saturation 96% on 2 liters nasal cannula. Height 5 feet 4 inches, weight is 140 pounds. GENERAL: Mr. Ha Irving is an 83 years old elderly [place] male, on [employer] with . HEENT: Pupils normal, reactive to light and accommodation. Conjunctivae slightly pale. Sclerae anicteric. Tongue is moist. Trachea is midline. LUNGS: Symmetric on both sides. Bilateral breath sounds present. Clear to auscultation. CVS: [place] at the fifth intercostal space, midclavicular line. S1, S2 audible. No murmur or gallop. ABDOMEN: Distended. Mild diffuse tenderness. Bowel sounds present. No guarding, no rigidity. No hepatosplenomegaly. The patient has a midline scar present from the previous surgery. HOSPITAL SUPERINTENDENT: The patient is alert, awake and oriented x3. Nonfocal neuro examination. Cranial nerves II-XII grossly intact. Sensory and motor system is within normal limits. EXTREMITIES: No cyanosis, no clubbing, no edema. LABORATORY DATA: Includes as follows: As of 06/06/2018, H and H, hemoglobin 8.3, hematocrit is 27. Accu-Cheks 178, 110, 121 and 116. Urinalysis, straw color, clear, pH 6, specific gravity 1.011 and protein 3+, glucose 1+, ketones negative, blood negative, nitrites negative, bilirubin negative, urobilinogen normal, leukocyte esterase negative, wbc less than 1, rbc 1, hyaline cast 0 to 2. As of 06/16/2018, WBC 12.9 hemoglobin 8.3, hematocrit is 27.2, MCV 64.1 and platelets 202 and PT 11.9 and INR is 1.1. PTT 38. ABG, VBG, pH 7.36, pO2 of 29, pCO2 of 38, bicarb 20.9 and saturation 60. Sodium 129, potassium 5.1, chloride 94, CO2 of 20, BUN 64 and creatinine 4.2, glucose 153, calcium 8.3. Total bili 0.6, AST 23, ALT 12, alkaline phosphatase 106, total protein 7.5, albumin is 4.4 and beta-hydroxybutyrate is 0.60. CT of the abdomen and pelvis as of 06/06/2018, high-grade mid to distal small bowel obstruction, transitioning at the left upper quadrant abdomen. Surgical consultation recommended. No free intraperitoneal gas collection or abscess identified. Adrenals unremarkable. Spleen unremarkable. Pancreas unremarkable, and kidneys and ureter unremarkable, no hydronephrosis, no solid mass. Peritoneum unremarkable. No free fluid or free air. Appendix not identified. Bladder unremarkable. Other lab data as of 09/27/2017, serum creatinine 3.3. As of 12/29/2017, serum creatinine 3.7. As of 04/18/2018, serum creatinine 4.2. As of 06/06/2018, serum creatinine 4.2. On review of the labs from the previous admissions, urinalysis as of 04/18/2018, 3+ protein and urine microalbumin as of 04/18/2018 more than 950. As of 07/23/2015, 24-hour urine protein 10.63 g. ASSESSMENT AND PLAN: In summary, Mr. Irving is an 83-year-old elderly [place] male with a history of longstanding hypertension, diabetes, hyperlipidemia, coronary artery disease, status post stent placement, anemia, chronic kidney disease with a glomerular filtration rate less than 15 mL/minute, proteinuria, was admitted with sudden onset of abdominal distention and abdominal pain since last night on [facility]. CT scan consistent with small bowel obstruction. 1. 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 The patient had a complete workup in the past. 2. High-grade mid to distal small bowel obstruction, transitioning at the left upper quadrant abdomen. 3. Anemia secondary to renal failure, rule out iron-deficiency anemia. 4. Hypertension. 5. Diabetes. Continue [facility]. Continue intravenous fluids D5 normal saline at 80 mL/hour, and we will check urine for random sample for the protein and creatinine ratio, and also we will check PTH intact level, iron, TIBC, ferritin level, hepatitis B and C serology, DARY, SPEP and UPEP and we will also add Epogen 10,000 units three times a week, Nephrocaps 1 tablet p.o. daily when the patient can take it and also we will give intravenous iron and hemoglobin electrophoresis. We will follow up with you. Thank you for allowing me to participate in your patient's care. Discussed with the patient's primary care physician, Dr. Ana Noel in rounds. Aamir Galeano MD [facility] # [id number]
[2018-06-07 08:16] LABS: BASO % 0.3 % (0.0-2.0); EOS # 0.2 K/uL (0.0-0.7); EOS % 2.7 % (0.0-4.0); HEMOGLOBIN 8.3 g/dL (12.0-18.0); LYMPH # 0.5 K/uL (1.0-4.3); LYMPH % 6.2 % (20.0-40.0); MEAN CELL VOLUME 64.4 fL (80.0-94.0); MEAN CORPUSCULAR HEMOGLOBIN 19.8 pg (27.0-31.0); MEAN CORPUSCULAR HGB CONC 30.7 g/dL (33.0-37.0); MEAN PLATELET VOLUME 8.8 fL (7.2-11.7); MONO # 0.3 K/uL (0.0-0.8); MONO % 3.9 % (0.0-10.0); NEUT # 7.2 K/uL (1.8-7.0); NEUT % 86.9 % (50.0-75.0); PLATELET COUNT 188 K/uL (130-400); RED CELL DISTRIBUTION WIDTH 15.8 % (11.5-14.5); WHITE BLOOD COUNT 8.3 K/uL (4.8-10.8)
[2018-06-07 09:28] LABS: CALCIUM 8.2 mg/dl (8.6-10.4)
--- NOTE | 2018-06-07 09:42 | CP.PCM.PN ---
Subjective - Date & Time of Evaluation Date of Evaluation: 06/07/18 Time of Evaluation: 07:00 - Subjective Subjective: Surgery: Dr. Seymour Pt seen and examined. No acute overnight events. Pt states his NGT fell out overnight but he denies any episodes of nausea/vomiting since then. He sates he is feeling a little better and abdominal pain has resolved. However, denies flatus or BM. Denies fevers/chills. Objective - Vital Signs/Intake and Output Vital Signs (last 24 hours): Temp Pulse Resp BP Pulse Ox 99.6 F 88 20 187/77 H 99 06/07/18 07:00 06/07/18 07:00 06/07/18 07:00 06/07/18 07:00 06/07/18 07:00 Intake and Output: 06/07/18 06/07/18 06:59 18:59 Intake Total 1100 Output Total 900 Balance 200 - Medications Medications: Current Medications Amlodipine Besylate (Norvasc) 5 mg PO DAILY [facility] Last Admin: 06/06/18 11:06 Dose: Not Given Aspirin (Ecotrin) 81 mg PO DAILY [facility] Home Med (Multivit-Min/Fa/Lycopen/Lutein [Centrum Silver Men Tablet]) 1 each PO DAILY [facility] Dextrose/Sodium Chloride (Dextrose 5%/0.9% Ns 1000 Ml) 1,000 mls @ 80 mls/hr IV .[id number] [facility] Last Admin: 06/06/18 22:23 Dose: 80 mls/hr Labetalol HCl (Trandate) 50 mg PO AMHS [facility] Last Admin: 06/06/18 22:24 Dose: Not Given Losartan Potassium (Cozaar) 100 mg PO DAILY [facility] Ondansetron HCl (Zofran Inj) 4 mg IVP Q6 PRN PRN Reason: Nausea/Vomiting Pantoprazole Sodium (Protonix Inj) 20 mg IVP DAILY [facility] Last Admin: 06/06/18 11:09 Dose: 20 mg Rosuvastatin Calcium (Crestor) 10 mg PO HS [facility] Last Admin: 06/06/18 22:23 Dose: Not Given - Labs Labs: 06/07/18 08:11 06/07/18 08:11 PT 11.9 SECONDS (9.7-12.2) 06/06/18 03:46 INR 1.1 06/06/18 03:46 APTT 38 SECONDS (21-34) H 06/06/18 03:46 - Constitutional Appears: Well, No Acute Distress - Head Exam Head Exam: ATRAUMATIC, NORMOCEPHALIC - Eye Exam Eye Exam: Normal appearance - ENT Exam ENT Exam: Mucous Membranes Moist - Respiratory Exam Respiratory Exam: NORMAL BREATHING PATTERN - Cardiovascular Exam Cardiovascular Exam: RRR - GI/Abdominal Exam GI & Abdominal Exam: Soft. absent: Tenderness - Extremities Exam Extremities Exam: absent: Tenderness - Neurological Exam Neurological Exam: Alert, Awake, Oriented x3 - Skin Skin Exam: Dry, Warm Assessment and Plan - Assessment and Plan (Free Text) Assessment: 83M with SBO Plan: - will need to replace NGT if starts vomiting - f/u abdominal X-ray - cont IVF per nephro for renal insufficiency - serial abdominal exams - encourage ambulation - d/w Dr. Lion Rowan
[2018-06-07] MEDS: Dextrose 5%/0.9% NS 1,000 ML IV SCH ×2 (09:52→23:42)
[2018-06-07 09:54] LABS: ANISOCYTOSIS SLIGHT; BANDS 1 % (0-2); EOSINOPHIL 5 % (0-4); HYPOCHROMIC SLIGHT; LYMPHOCYTE 8 % (20-40); MONOCYTE 5 % (0-10); NEUTROPHIL 81 % (50-75); PLATELET ESTIMATE NORMAL (NORMAL); POIKILOCYTOSIS SLIGHT; TOTAL CELLS COUNTED 100
[2018-06-07 09:55] LABS: OVALOCYTES SLIGHT
[2018-06-07] MEDS ORDERED: Furosemide 10 mg/mL LIQ (60mL) PO SCH (10:00)
[2018-06-07] MEDS: Multiple Vitamins Tab PO SCH (10:05)
--- NOTE | 2018-06-07 11:25 | CP.PCM.PN ---
Subjective - Date & Time of Evaluation Date of Evaluation: 06/07/18 Time of Evaluation: 11:23 - Subjective Subjective: todya filma showa gas down to lag bowel suggesting relief of obstruction. will start oral fuids today. Objective - Vital Signs/Intake and Output Vital Signs (last 24 hours): Temp Pulse Resp BP Pulse Ox 98.4 F 88 20 187/77 H 99 06/07/18 09:49 06/07/18 07:00 06/07/18 07:00 06/07/18 07:00 06/07/18 07:00 Intake and Output: 06/07/18 06/07/18 06:59 18:59 Intake Total 1100 Output Total 900 Balance 200 - Medications Medications: Current Medications Amlodipine Besylate (Norvasc) 5 mg PO DAILY [facility] Last Admin: 06/07/18 09:52 Dose: 5 mg Aspirin (Ecotrin) 81 mg PO DAILY [facility] Heparin Sodium (Porcine) (Heparin) 5,000 units SC Q8 [facility] Dextrose/Sodium Chloride (Dextrose 5%/0.9% Ns 1000 Ml) 1,000 mls @ 80 mls/hr IV .[id number] [facility] Last Admin: 06/07/18 09:52 Dose: Not Given Losartan Potassium (Cozaar) 100 mg PO DAILY [facility] Last Admin: 06/07/18 09:52 Dose: 100 mg Metoprolol Tartrate (Lopressor) 50 mg PO BID [facility] Last Admin: 06/07/18 10:01 Dose: Not Given Multivitamins (Hexavitamin) 1 tab PO DAILY [facility] Last Admin: 06/07/18 10:05 Dose: 1 tab Ondansetron HCl (Zofran Inj) 4 mg IVP Q6 PRN PRN Reason: Nausea/Vomiting Pantoprazole Sodium (Protonix Inj) 20 mg IVP DAILY [facility] Last Admin: 06/07/18 09:51 Dose: 20 mg Rosuvastatin Calcium (Crestor) 10 mg PO HS [facility] Last Admin: 06/06/18 22:23 Dose: Not Given - Labs Labs: 06/07/18 08:11 06/07/18 08:11 PT 11.9 SECONDS (9.7-12.2) 06/06/18 03:46 INR 1.1 06/06/18 03:46 APTT 38 SECONDS (21-34) H 06/06/18 03:46
--- NOTE | 2018-06-07 12:46 | RAD ---
Date of service: 06/07/2018 HISTORY: f/u SBO COMPARISON: None available. FINDINGS: BOWEL: There are gas-filled mildly prominent small bowel loops and gas in the colon. No free intraperitoneal air. The BONES: Normal. OTHER FINDINGS: None. IMPRESSION: Mildly prominent gas-filled small bowel loops and gas in the colon. No evidence of bowel obstruction.
--- NOTE | 2018-06-07 13:36 | CP.PCM.PN ---
Subjective - Date & Time of Evaluation Date of Evaluation: 06/07/18 Time of Evaluation: 03:00 - Subjective Subjective: chart review Vitals BP noted on high side repeat h/h low patient refused transfusion had discussed with renal reagarding epoietin noted passing flatus patient seen no more NGT patient reports he sneezed and NGT came out - no complications noted he had passed flatus- seen by surgery started on clear feeding Objective - Vital Signs/Intake and Output Vital Signs (last 24 hours): Temp Pulse Resp BP Pulse Ox 98.4 F 88 20 187/77 H 99 06/07/18 09:49 06/07/18 07:00 06/07/18 07:00 06/07/18 07:00 06/07/18 07:00 Intake and Output: 06/07/18 06/07/18 06:59 18:59 Intake Total 1100 Output Total 900 Balance 200 - Medications Medications: Current Medications Amlodipine Besylate (Norvasc) 5 mg PO DAILY [facility] Last Admin: 06/07/18 09:52 Dose: 5 mg Aspirin (Ecotrin) 81 mg PO DAILY [facility] Heparin Sodium (Porcine) (Heparin) 5,000 units SC Q8 [facility] Dextrose/Sodium Chloride (Dextrose 5%/0.9% Ns 1000 Ml) 1,000 mls @ 80 mls/hr IV .[id number] [facility] Last Admin: 06/07/18 09:52 Dose: Not Given Losartan Potassium (Cozaar) 100 mg PO DAILY [facility] Last Admin: 06/07/18 09:52 Dose: 100 mg Metoprolol Tartrate (Lopressor) 50 mg PO BID [facility] Last Admin: 06/07/18 10:01 Dose: Not Given Multivitamins (Hexavitamin) 1 tab PO DAILY [facility] Last Admin: 06/07/18 10:05 Dose: 1 tab Ondansetron HCl (Zofran Inj) 4 mg IVP Q6 PRN PRN Reason: Nausea/Vomiting Pantoprazole Sodium (Protonix Inj) 20 mg IVP DAILY [facility] Last Admin: 06/07/18 09:51 Dose: 20 mg Rosuvastatin Calcium (Crestor) 10 mg PO HS [facility] Last Admin: 06/06/18 22:23 Dose: Not Given - Labs Labs: 06/07/18 08:11 06/07/18 08:11 PT 11.9 SECONDS (9.7-12.2) 06/06/18 03:46 INR 1.1 06/06/18 03:46 APTT 38 SECONDS (21-34) H 06/06/18 03:46 - Constitutional Appears: Non-toxic, No Acute Distress - Head Exam Head Exam: ATRAUMATIC, NORMOCEPHALIC - Eye Exam Eye Exam: Normal appearance - ENT Exam ENT Exam: Mucous Membranes Moist - Neck Exam Neck Exam: Full ROM. absent: Tenderness - Respiratory Exam Respiratory Exam: Clear to Ausculation Bilateral - Cardiovascular Exam Cardiovascular Exam: REGULAR RHYTHM - GI/Abdominal Exam GI & Abdominal Exam: Soft, Hyperactive Bowel Sounds. absent: Tenderness - Extremities Exam Extremities Exam: Full ROM. absent: Joint Swelling, Pedal Edema, Tenderness - Neurological Exam Neurological Exam: Alert, Awake, Normal Gait, Oriented x3 - Psychiatric Exam Psychiatric exam: Normal Affect, Normal Mood - Skin Skin Exam: Intact, Normal Color Assessment and Plan (1) Small bowel obstruction Assessment & Plan: currently with passage of gas, feeding on observation Status: Acute (2) Anemia Assessment & Plan: refuses transfusion- will give procrit and iron - discussed with renal Status: Acute (3) Coronary arteriosclerosis Assessment & Plan: stable on meds Status: Chronic (4) Hypertension associated with chronic kidney disease due to type 2 diabetes mellitus Assessment & Plan: BP uncontrolled- will adjust meds Status: Acute (5) CHF (congestive heart failure) Assessment & Plan: stbale no fluid overload Status: Acute (6) Diabetes mellitus Assessment & Plan: NPO- now started on clear food and to advance - will resume accordingly Status: Acute
[2018-06-07] MEDS ORDERED: EPOETIN ALFA 10,000 UNIT/ML ML SC ONE (14:20)
[2018-06-07] MEDS: Ferric Sodium Gluconat Complex 62.5 mg/5 ml Vial IVPB SCH (15:04)
--- NOTE | 2018-06-07 18:25 | CP.PCM.PN ---
Subjective - Date & Time of Evaluation Date of Evaluation: 06/07/18 Time of Evaluation: 18:24 - Subjective Subjective: pt is seen and examined, follow up consult is dictated #[id number] Objective - Vital Signs/Intake and Output Vital Signs (last 24 hours): Temp Pulse Resp BP Pulse Ox 99 F 83 20 130/57 L 97 06/07/18 15:40 06/07/18 15:40 06/07/18 15:40 06/07/18 15:40 06/07/18 15:40 Intake and Output: 06/07/18 06/07/18 06:59 18:59 Intake Total 1100 Output Total 900 Balance 200 - Medications Medications: Current Medications Amlodipine Besylate (Norvasc) 5 mg PO DAILY [facility] Last Admin: 06/07/18 09:52 Dose: 5 mg Aspirin (Ecotrin) 81 mg PO DAILY [facility] Ferric Sodium Gluconate Complex (Ferrlecit) 125 mg IVPB DAILY [facility] Stop: 06/09/18 14:31 Last Admin: 06/07/18 15:04 Dose: 125 mg Heparin Sodium (Porcine) (Heparin) 5,000 units SC Q8 [facility] Last Admin: 06/07/18 14:07 Dose: 5,000 units Hydrochlorothiazide (Hydrodiuril) 25 mg PO DAILY [facility] Dextrose/Sodium Chloride (Dextrose 5%/0.9% Ns 1000 Ml) 1,000 mls @ 80 mls/hr IV .[id number] [facility] Last Admin: 06/07/18 09:52 Dose: Not Given Losartan Potassium (Cozaar) 100 mg PO DAILY [facility] Last Admin: 06/07/18 09:52 Dose: 100 mg Metoprolol Tartrate (Lopressor) 50 mg PO BID [facility] Last Admin: 06/07/18 10:01 Dose: Not Given Multivitamins (Hexavitamin) 1 tab PO DAILY [facility] Last Admin: 06/07/18 10:05 Dose: 1 tab Ondansetron HCl (Zofran Inj) 4 mg IVP Q6 PRN PRN Reason: Nausea/Vomiting Pantoprazole Sodium (Protonix Inj) 20 mg IVP DAILY [facility] Last Admin: 06/07/18 09:51 Dose: 20 mg Rosuvastatin Calcium (Crestor) 10 mg PO HS [facility] Last Admin: 06/06/18 22:23 Dose: Not Given - Labs Labs: 06/07/18 08:11 06/07/18 08:11 PT 11.9 SECONDS (9.7-12.2) 06/06/18 03:46 INR 1.1 06/06/18 03:46 APTT 38 SECONDS (21-34) H 06/06/18 03:46
--- NOTE | 2018-06-07 20:10 | CP.PCM.CON ---
History of Present Illness - History of Present Illness History of Present Illness: Reason For Consultation: CAD and cardiac assessment 83M presents with abdominal pain that started yesterday. Patient states the pain is diffuse and achy. He denies nausea, vomiting, fevers and chills. Patient states he has not passed gas since yesterday. Last bowel movement was yesterday. He has a history of small bowel obstruction in 2013 that he was operated for and then 2017 which was managed non-operatively. PMH: HTN, HLD, MVP, DM, SBO, CAD PSH: Appy, prostatectomy, coronary stents*3, Ex-lap DEVIN Social: denies tobacco, alcohol and illicit drugs use Allergies: NKDA Physical Exam - Constitutional Appears: Non-toxic, No Acute Distress - ENT Exam ENT Exam: Mucous Membranes Moist - Respiratory Exam Respiratory Exam: Clear to Auscultation Bilateral, NORMAL BREATHING PATTERN - Cardiovascular Exam Cardiovascular Exam: REGULAR RHYTHM, +S1, +S2 - GI/Abdominal Exam GI & Abdominal Exam: Distended, Soft, Tenderness. absent: Firm, Guarding, Rebound, Rigid Additional comments: full, tender, distended NGT in place with bilious output Ex lap scar noted - Extremities Exam Extremities exam: Negative for: pedal edema, tenderness - Neurological Exam Neurological exam: Alert, Oriented x3 - Psychiatric Exam Psychiatric exam: Normal Affect, Normal Mood - Skin Skin Exam: Dry, Intact, Normal Color, Warm Past Patient History - Infectious Disease Hx of Infectious Diseases: None - Tetanus Immunizations Tetanus Immunization: Unknown - Past Medical History & Family History Past Medical History?: Yes - Past Social History Smoking Status: Never Smoked - CARDIAC Hx Congestive Heart Failure: Yes Hx Hypercholesterolemia: Yes Hx Hypertension: Yes Hx Mitral Valve Prolapse: Yes - PULMONARY Hx Chronic Obstructive Pulmonary Disease (COPD): Yes Hx Pneumonia: Yes - NEUROLOGICAL Hx Neurological Disorder: No - HEENT Hx HEENT Problems: Yes Hx Cataracts: Yes (both eyes) - RENAL Hx Chronic Kidney Disease: Yes - ENDOCRINE/METABOLIC Hx Endocrine Disorders: Yes Hx Diabetes Mellitus Type 2: Yes - HEMATOLOGICAL/ONCOLOGICAL Hx Anemia: Yes - INTEGUMENTARY Hx Dermatological Problems: No - MUSCULOSKELETAL/RHEUMATOLOGICAL Hx Falls: No - GASTROINTESTINAL Hx Diverticulitis: Yes - GENITOURINARY/GYNECOLOGICAL Hx Genitourinary Disorders: Yes Hx Prostate Cancer: Yes - PSYCHIATRIC Hx Substance Use: No - SURGICAL HISTORY Hx Appendectomy: Yes Hx Coronary Stent: Yes (3 yrs) - ANESTHESIA Hx Anesthesia: Yes Hx Anesthesia Reactions: No Hx Malignant Hyperthermia: No Meds Allergies/Adverse Reactions: Allergies Allergy/AdvReac Type Severity Reaction Status Date / Time No Known Allergies Allergy Verified 06/06/18 03:16 - Medications Medications: Current Medications Amlodipine Besylate (Norvasc) 5 mg PO DAILY [facility] Last Admin: 06/07/18 09:52 Dose: 5 mg Aspirin (Ecotrin) 81 mg PO DAILY [facility] Ferric Sodium Gluconate Complex (Ferrlecit) 125 mg IVPB DAILY [facility] Stop: 06/09/18 14:31 Last Admin: 06/07/18 15:04 Dose: 125 mg Heparin Sodium (Porcine) (Heparin) 5,000 units SC Q8 [facility] Last Admin: 06/07/18 14:07 Dose: 5,000 units Hydrochlorothiazide (Hydrodiuril) 25 mg PO DAILY [facility] Dextrose/Sodium Chloride (Dextrose 5%/0.9% Ns 1000 Ml) 1,000 mls @ 80 mls/hr IV .[id number] [facility] Last Admin: 06/07/18 09:52 Dose: Not Given Losartan Potassium (Cozaar) 100 mg PO DAILY [facility] Last Admin: 06/07/18 09:52 Dose: 100 mg Metoprolol Tartrate (Lopressor) 50 mg PO BID [facility] Last Admin: 06/07/18 18:24 Dose: 50 mg Multivitamins (Hexavitamin) 1 tab PO DAILY [facility] Last Admin: 06/07/18 10:05 Dose: 1 tab Ondansetron HCl (Zofran Inj) 4 mg IVP Q6 PRN PRN Reason: Nausea/Vomiting Pantoprazole Sodium (Protonix Inj) 20 mg IVP DAILY [facility] Last Admin: 06/07/18 09:51 Dose: 20 mg Rosuvastatin Calcium (Crestor) 10 mg PO HS [facility] Last Admin: 06/06/18 22:23 Dose: Not Given Results - Vital Signs Recent Vital Signs: Last Vital Signs Temp 99 F 06/07/18 15:40 Pulse 83 06/07/18 15:40 Resp 20 06/07/18 15:40 BP 130/57 L 06/07/18 15:40 Pulse Ox 97 06/07/18 15:40 - Labs Result Diagrams: 06/07/18 08:11 06/07/18 08:11 Labs: Laboratory Results - last 24 hr 06/06/18 06/06/18 06/07/18 16:39 20:50 06:49 WBC RBC Hgb Hct MCV MCH MCHC RDW Plt Count MPV Neut % (Auto) Lymph % (Auto) [place] % (Auto) Eos % (Auto) Baso % (Auto) Neut # (Auto) Lymph # (Auto) [place] # (Auto) Eos # (Auto) Baso # (Auto) Neutrophils % (Manual) Band Neutrophils % Lymphocytes % (Manual) Monocytes % (Manual) Eosinophils % (Manual) Platelet Estimate Hypochromasia (manual) Poikilocytosis (manual Anisocytosis (manual) Ovalocytes Sodium Potassium Chloride Carbon Dioxide Anion Gap BUN Creatinine Est GFR ( Amer) Est GFR (Non-Af Amer) POC Glucose (mg/dL) 121 H 116 H 132 H Random Glucose Calcium 06/07/18 06/07/18 06/07/18 08:11 08:11 11:30 WBC 8.3 RBC 4.20 L Hgb 8.3 L Hct 27.0 L MCV 64.4 L MCH 19.8 L MCHC 30.7 L RDW 15.8 H Plt Count 188 MPV 8.8 Neut % (Auto) 86.9 H Lymph % (Auto) 6.2 L [place] % (Auto) 3.9 Eos % (Auto) 2.7 Baso % (Auto) 0.3 Neut # (Auto) 7.2 H Lymph # (Auto) 0.5 L [place] # (Auto) 0.3 Eos # (Auto) 0.2 Baso # (Auto) 0.0 Neutrophils % (Manual) 81 H Band Neutrophils % 1 Lymphocytes % (Manual) 8 L Monocytes % (Manual) 5 Eosinophils % (Manual) 5 H Platelet Estimate Normal Hypochromasia (manual) Slight Poikilocytosis (manual Slight Anisocytosis (manual) Slight Ovalocytes Slight Sodium 137 Potassium 4.3 Chloride 104 Carbon Dioxide 21 L Anion Gap 16 BUN 64 H Creatinine 5.0 H Est GFR ( Amer) 13 Est GFR (Non-Af Amer) 11 POC Glucose (mg/dL) 176 H Random Glucose 138 H Calcium 8.2 L 06/07/18 16:31 WBC RBC Hgb Hct MCV MCH MCHC RDW Plt Count MPV Neut % (Auto) Lymph % (Auto) [place] % (Auto) Eos % (Auto) Baso % (Auto) Neut # (Auto) Lymph # (Auto) [place] # (Auto) Eos # (Auto) Baso # (Auto) Neutrophils % (Manual) Band Neutrophils % Lymphocytes % (Manual) Monocytes % (Manual) Eosinophils % (Manual) Platelet Estimate Hypochromasia (manual) Poikilocytosis (manual Anisocytosis (manual) Ovalocytes Sodium Potassium Chloride Carbon Dioxide Anion Gap BUN Creatinine Est GFR ( Amer) Est GFR (Non-Af Amer) POC Glucose (mg/dL) 223 H Random Glucose Calcium Assessment & Plan - Assessment and Plan (Free Text) Assessment: SBO improving 1. CAD s/p RCA stent 05/2016. No interval cardiac symptoms 2. Normal EF 3. HTN 4. CKD
[2018-06-07 23:10] LABS: HEMOGLOBIN 6.8 g/dL (12.0-18.0); MEAN CELL VOLUME 62.6 fL (80.0-94.0); MEAN CORPUSCULAR HEMOGLOBIN 19.8 pg (27.0-31.0); MEAN CORPUSCULAR HGB CONC 31.6 g/dL (33.0-37.0); MEAN PLATELET VOLUME 8.4 fL (7.2-11.7); RBC 3.44 Mil/uL (4.40-5.90); RED CELL DISTRIBUTION WIDTH 15.2 % (11.5-14.5); WHITE BLOOD COUNT 7.9 K/uL (4.8-10.8)
[2018-06-07 23:27] LABS: SQUAMOUS EPITHIAL < 1 /hpf (0-5); URINE BILIRUBIN NEGATIVE (NEGATIVE); URINE BLOOD NEGATIVE (NEGATIVE); URINE CLARITY Clear (Clear); URINE COLOR Yellow (YELLOW); URINE GLUCOSE (UA) 1+ mg/dL (Normal); URINE LEUKOCYTE ESTERASE NEG Leu/uL (Negative); URINE PROTEIN 3+ mg/dL (NEGATIVE); URINE UROBILINOGEN NORMAL mg/dL (0.2-1.0)
[2018-06-07 23:37] LABS: ALB/GLOB RATIO 1.2 (1.0-2.1); ALBUMIN 3.1 g/dL (3.5-5.0); CALCIUM 7.4 mg/dl (8.6-10.4)
--- NOTE | 2018-06-08 04:57 | PN ---
DATE: 06/07/2018 FOLLOWUP RENAL CONSULTATION LOCATION: The patient is located in room 668, bed A. REQUESTED BY: Ana Noel MD REASON FOR FOLLOWUP: Acute renal failure on chronic kidney disease, small bowel obstruction. SUBJECTIVE: Mr. Irving is an 83-year-old elderly very pleasant [place] male with a history of longstanding hypertension, diabetes, coronary artery disease, status post stent placement, chronic kidney disease stage 4, proteinuria, anemia, history of small bowel obstruction few years ago, who was admitted with chief complaints of abdominal distention and pain and found to have a small bowel obstruction, and the patient was placed on NG tube suction yesterday. The patient is feeling much better and NG tube was removed and started on clear liquids. The patient still complains of mild abdominal pain. No nausea, no vomiting, no edema of the legs, no urinary symptoms. PHYSICAL EXAMINATION: VITAL SIGNS: As follows: Blood pressure 130/57, pulse 83, respirations 20, temperature 99, saturation 97%. Height 5 feet 4 inches, weight is 140 pounds. GENERAL: Mr. Irving is an 83-year-old elderly male, moderately built, moderately nourished, not in distress. HEENT: Pupils normal, reactive to light and accommodation. Conjunctivae pink. Sclerae anicteric and is moist. Trachea is midline. LUNGS: Symmetric on both sides. Bilateral breath sounds present. Clear to auscultation. CVS: [place] at the fifth intercostal space, midclavicular line. S1 and S2 audible. No murmur or gallop. ABDOMEN: Slightly distended and soft. Bowel sounds present. Mild diffuse tenderness present. No guarding. No rigidity. LINEN TECH: The patient is alert, awake, oriented x3. Nonfocal neuro examination. Cranial nerves II-XII grossly intact. Sensory motor system is within normal limits. EXTREMITIES: No cyanosis, no clubbing, no edema. CURRENT MEDICATIONS: Include as follows, losartan 100 mg p.o. daily, Crestor 10 mg daily, IV fluids of D5 normal saline at 80 mL/hour, aspirin 81 mg daily on hold, Ferrlecit 125 mg IV daily, subcu heparin 5000 units every 8 hours, multivitamin 1 tablet daily, hydrochlorothiazide 25 mg p.o. daily, metoprolol 50 mg p.o. b.i.d., amlodipine 5 mg p.o. daily, Protonix 20 mg IV daily, Tylenol and Zofran. LABORATORY DATA: Include as follows: As of 06/07/2018, WBC 8.3, hemoglobin 8.3, hematocrit is 27, MCV 64.4 and platelet 188. Sodium 137, potassium 4.3, chloride 104, CO2 of 21, BUN 64, creatinine is 5, glucose 138, calcium 8.2. ASSESSMENT AND PLAN: In summary, Mr. Irving is an 83-year-old elderly [place] male with a history of hypertension, diabetes, coronary artery disease, status post stent placement and chronic kidney disease stage 4, proteinuria, anemia, who was admitted with small bowel obstruction, abdominal pain and nausea. 1. Acute renal failure on chronic kidney disease secondary to decreased intravascular volume secondary to a nasogastric tube suction, and decreased oral intake. 2. Hypertension. Continue his current blood pressure medications, losartan, metoprolol and amlodipine. 3. Anemia secondary to renal failure and iron-deficiency anemia. Continue Ferrlecit and continue multivitamin. I agree with Epogen 10,000 units subcutaneously x1 dose. We will place him on three times a week. Continue clear liquids and advance as recommended by surgery team. 4. Hyperlipidemia. Continue Crestor 10 mg at bedtime. 5. Type 2 diabetes. Continue to monitor Accu-Cheks. We will follow with you. Thank you for allowing me to participate in your patient's care. Aamir Galeano MD
--- NOTE | 2018-06-08 08:31 | CP.PCM.PN ---
Subjective - Date & Time of Evaluation Date of Evaluation: 06/08/18 Time of Evaluation: 08:30 - Subjective Subjective: chart reviw patient had drop in H/H blood transfusion given on Procrit and ferlicit Temperature noted patient seen, no complaints, had eaten- no complaints, had bowel movement , urine no complaints temperature noted , resolved with tylenol cxr negative, , no cough no other complaints Objective - Vital Signs/Intake and Output Vital Signs (last 24 hours): Temp Pulse Resp BP Pulse Ox 97.4 F L 61 20 140/62 98 06/08/18 06:14 06/08/18 06:14 06/08/18 06:14 06/08/18 06:29 06/08/18 01:55 Intake and Output: 06/08/18 06/08/18 06:59 18:59 Intake Total 848 Output Total 300 Balance 548 - Medications Medications: Current Medications Acetaminophen (Tylenol 325mg Tab) 650 mg PO Q6 PRN PRN Reason: for temp 101 and above Last Admin: 06/07/18 21:59 Dose: 650 mg Amlodipine Besylate (Norvasc) 5 mg PO DAILY [facility] Last Admin: 06/07/18 09:52 Dose: 5 mg Aspirin (Ecotrin) 81 mg PO DAILY [facility] Ferric Sodium Gluconate Complex (Ferrlecit) 125 mg IVPB DAILY [facility] Stop: 06/09/18 14:31 Last Admin: 06/07/18 15:04 Dose: 125 mg Furosemide (Lasix) 20 mg IVP ONCE PRN PRN Reason: AFTER BLOOD TRANSFUSION Last Admin: 06/08/18 06:29 Dose: 20 mg Heparin Sodium (Porcine) (Heparin) 5,000 units SC Q8 [facility] Last Admin: 06/08/18 06:30 Dose: 5,000 units Hydrochlorothiazide (Hydrodiuril) 25 mg PO DAILY [facility] Dextrose/Sodium Chloride (Dextrose 5%/0.9% Ns 1000 Ml) 1,000 mls @ 80 mls/hr IV .[id number] [facility] Last Admin: 06/07/18 23:42 Dose: 80 mls/hr Losartan Potassium (Cozaar) 100 mg PO DAILY [facility] Last Admin: 06/07/18 09:52 Dose: 100 mg Metoprolol Tartrate (Lopressor) 50 mg PO BID [facility] Last Admin: 02/08/19 18:24 Dose: 50 mg Multivitamins (Hexavitamin) 1 tab PO DAILY [facility] Last Admin: 06/07/18 10:05 Dose: 1 tab Ondansetron HCl (Zofran Inj) 4 mg IVP Q6 PRN PRN Reason: Nausea/Vomiting Pantoprazole Sodium (Protonix Inj) 20 mg IVP DAILY [facility] Last Admin: 06/07/18 09:51 Dose: 20 mg Rosuvastatin Calcium (Crestor) 10 mg PO HS [facility] Last Admin: 06/07/18 22:03 Dose: 10 mg - Labs Labs: 06/07/18 23:07 06/07/18 23:07 PT 11.9 SECONDS (9.7-12.2) 06/06/18 03:46 INR 1.1 06/06/18 03:46 APTT 38 SECONDS (21-34) H 06/06/18 03:46 - Constitutional Appears: No Acute Distress - Head Exam Head Exam: ATRAUMATIC, NORMOCEPHALIC - Eye Exam Eye Exam: Normal appearance - ENT Exam ENT Exam: Mucous Membranes Moist - Neck Exam Neck Exam: Full ROM. absent: Tenderness - Respiratory Exam Respiratory Exam: Clear to Ausculation Bilateral, NORMAL BREATHING PATTERN - Cardiovascular Exam Cardiovascular Exam: REGULAR RHYTHM - GI/Abdominal Exam GI & Abdominal Exam: Soft, Normal Bowel Sounds. absent: Distended, Guarding, Tenderness - Extremities Exam Extremities Exam: Full ROM. absent: Joint Swelling, Pedal Edema, Tenderness - Back Exam Back Exam: Full ROM - Neurological Exam Neurological Exam: Alert, Awake, Normal Gait, Oriented x3 - Psychiatric Exam Psychiatric exam: Normal Affect, Normal Mood - Skin Skin Exam: Intact, Normal Color Assessment and Plan (1) Small bowel obstruction Assessment & Plan: improving , on advancing diet on observation Status: Acute (2) Anemia Assessment & Plan: with renal failure Creatinine 4- post transfusion , on ferlicit and procrit Status: Acute (3) Coronary arteriosclerosis Assessment & Plan: stabl sukumar chest pain Status: Chronic (4) Hypertension associated with chronic kidney disease due to type 2 diabetes mellitus Assessment & Plan: on monitoring Status: Acute (5) Diabetes mellitus Assessment & Plan: npo on advancing diet , still off DM meds- will resume accordingly Status: Acute
[2018-06-08] MEDS: Multiple Vitamins Tab PO SCH (09:57)
[2018-06-08] MEDS: Ferric Sodium Gluconat Complex 62.5 mg/5 ml Vial IVPB SCH (09:57)
--- NOTE | 2018-06-08 10:53 | CP.PCM.PN ---
Subjective - Date & Time of Evaluation Date of Evaluation: 06/08/18 Time of Evaluation: 10:52 - Subjective Subjective: pt is seen and examined, follow up consult is dictated #[id number] Objective - Vital Signs/Intake and Output Vital Signs (last 24 hours): Temp Pulse Resp BP Pulse Ox 97.3 F L 66 20 147/53 L 97 06/08/18 09:05 06/08/18 09:05 06/08/18 09:05 06/08/18 09:05 06/08/18 09:05 Intake and Output: 06/08/18 06/08/18 06:59 18:59 Intake Total 848 Output Total 300 Balance 548 - Medications Medications: Current Medications Acetaminophen (Tylenol 325mg Tab) 650 mg PO Q6 PRN PRN Reason: for temp 101 and above Last Admin: 06/07/18 21:59 Dose: 650 mg Amlodipine Besylate (Norvasc) 5 mg PO DAILY [facility] Last Admin: 06/08/18 09:58 Dose: 5 mg Aspirin (Ecotrin) 81 mg PO DAILY [facility] Ferric Sodium Gluconate Complex (Ferrlecit) 125 mg IVPB DAILY [facility] Stop: 06/09/18 14:31 Last Admin: 06/08/18 09:57 Dose: 125 mg Furosemide (Lasix) 20 mg IVP ONCE PRN PRN Reason: AFTER BLOOD TRANSFUSION Last Admin: 06/08/18 06:29 Dose: 20 mg Heparin Sodium (Porcine) (Heparin) 5,000 units SC Q8 [facility] Last Admin: 06/08/18 06:30 Dose: 5,000 units Hydrochlorothiazide (Hydrodiuril) 25 mg PO DAILY [facility] Last Admin: 06/08/18 09:58 Dose: 25 mg Dextrose/Sodium Chloride (Dextrose 5%/0.9% Ns 1000 Ml) 1,000 mls @ 80 mls/hr IV .[id number] [facility] Last Admin: 06/07/18 23:42 Dose: 80 mls/hr Losartan Potassium (Cozaar) 100 mg PO DAILY [facility] Last Admin: 06/08/18 09:57 Dose: 100 mg Metoprolol Tartrate (Lopressor) 50 mg PO BID [facility] Last Admin: 06/08/18 09:58 Dose: 50 mg Multivitamins (Hexavitamin) 1 tab PO DAILY [facility] Last Admin: 02/09/19 09:57 Dose: 1 tab Ondansetron HCl (Zofran Inj) 4 mg IVP Q6 PRN PRN Reason: Nausea/Vomiting Pantoprazole Sodium (Protonix Inj) 20 mg IVP DAILY [facility] Last Admin: 06/08/18 10:05 Dose: 20 mg Rosuvastatin Calcium (Crestor) 10 mg PO HS [facility] Last Admin: 06/07/18 22:03 Dose: 10 mg - Labs Labs: 06/07/18 23:07 06/07/18 23:07 PT 11.9 SECONDS (9.7-12.2) 06/06/18 03:46 INR 1.1 06/06/18 03:46 APTT 38 SECONDS (21-34) H 06/06/18 03:46
--- NOTE | 2018-06-08 11:08 | RAD ---
Date of service: 06/07/2018 HISTORY: Fever COMPARISON: No prior. FINDINGS: LUNGS: No active pulmonary disease. PLEURA: No significant pleural effusion identified, no pneumothorax apparent. CARDIOVASCULAR: Calcific atherosclerotic changes are seen related to the thoracic aorta. Cardiomegaly stable. No pulmonary vascular congestion. OSSEOUS STRUCTURES: No significant abnormalities. VISUALIZED UPPER ABDOMEN: Normal. OTHER FINDINGS: None. IMPRESSION: Stable cardiomegaly. No acute interval cardiopulmonary changes appreciable.
[2018-06-08 11:12] LABS: BASO % 0.6 % (0.0-2.0); EOS # 0.2 K/uL (0.0-0.7); EOS % 2.4 % (0.0-4.0); HEMOGLOBIN 8.4 g/dL (12.0-18.0); LYMPH % 13.9 % (20.0-40.0); MEAN CELL VOLUME 67.9 fL (80.0-94.0); MEAN CORPUSCULAR HEMOGLOBIN 21.4 pg (27.0-31.0); MEAN CORPUSCULAR HGB CONC 31.5 g/dL (33.0-37.0); MEAN PLATELET VOLUME 9.3 fL (7.2-11.7); MONO # 0.8 K/uL (0.0-0.8); NEUT # 5.2 K/uL (1.8-7.0); NEUT % 72.1 % (50.0-75.0); RBC 3.9 Mil/uL (4.40-5.90); RED CELL DISTRIBUTION WIDTH 17.4 % (11.5-14.5); WHITE BLOOD COUNT 7.2 K/uL (4.8-10.8)
[2018-06-08 11:20] LABS: CALCIUM 7.6 mg/dl (8.6-10.4)
[2018-06-08 11:28] LABS: COMPLEMENT C4 9.5 mg/dL (14.0-44.0)
[2018-06-08 11:53] LABS: HEPATITIS B SURFACE AG Negative (NEGATIVE)
[2018-06-08 11:59] LABS: % IRON SATURATION 55.6 (20-55)
[2018-06-08 12:00] LABS: HEPATITIS A IGM NEGATIVE (NEGATIVE); HEPATITIS B CORE AB NEGATIVE (NEGATIVE)
[2018-06-08 12:09] LABS: HEPATITIS C ANTIBODY NEGATIVE (NEGATIVE)
--- NOTE | 2018-06-08 20:03 | PN ---
DATE: 06/08/2018 REASON FOR FOLLOWUP: Acute renal failure, chronic kidney disease, small bowel obstruction, anemia. SUBJECTIVE: Mr. Irving is an 83 years old elderly very pleasant [place] male with a past medical history significant for longstanding hypertension, diabetes, coronary artery disease status post stent placement, hyperlipidemia, proteinuria nephrotic range, chronic kidney disease, anemia who was admitted with chief complaints of abdominal pain, distention and found to have a small bowel obstruction, status post NG tube placement and . NG tube was discontinued yesterday and started with clear liquids. The patient is tolerating clear liquids and no complaints. Mild abdominal discomfort. No fever. No cough. No chest pain or palpitation. No dysuria or frequency. No edema of the legs. OBJECTIVE: VITAL SIGNS: As follows, blood pressure 147/53, pulse 66, respirations 20, temperature 97.3, saturation 97%. Height 5 feet 4 inches and weight is 140 pounds. GENERAL: Mr. Irving is an 83-year-old elderly male, moderately moderate nourished, not in acute distress. HEENT: The pupils normal and reactive to light and accommodation. Conjunctivae pink. Sclerae anicteric. Tongue is moist. Trachea is midline. LUNGS: Symmetric on both sides. Bilateral breath sounds present. Clear to auscultation. CARDIOVASCULAR SYSTEM: [place] at the fifth intercostal space, midclavicular area. S1, S2 audible. No murmur or gallop. ABDOMEN: Normal in appearance, soft, tympanitic. Mild diffuse tenderness. No guarding. No rigidity. No hepatosplenomegaly. CENTRAL NERVOUS SYSTEM: The patient is alert, awake and oriented x3. Nonfocal neuro examination. Cranial nerves II-XII grossly intact. Sensory and motor system is within normal limits. EXTREMITIES: No cyanosis, no clubbing or edema. CURRENT MEDICATIONS: Include as follows, losartan 100 mg p.o. daily, Crestor 10 mg at bedtime, aspirin on hold, Ferrlecit 125 mg IV daily, subcu heparin 5000 units every 8 hours, multivitamin 1 tablet daily, hydrochlorothiazide 25 mg p.o. daily, Lasix 20 mg x1 dose, Lopressor 50 mg p.o. b.i.d., amlodipine 5 mg daily, Procrit 10,000 units three times a week, Protonix 20 mg IV daily, Tylenol and Zofran. LABORATORY DATA: Include as follows as of 06/08/2018, WBC 7.2, hemoglobin 8.4, hematocrit is 26.5, platelets 154. Sodium is 135, potassium 4.1, chloride 107, CO2 of 20, BUN 55, creatinine 4.7, glucose 215, calcium 7.6, phosphorus 3.8. Iron is 119, TIBC is 214, saturation is 55.6 and ferritin is 676. Urinalysis as of 06/07/2018, yellow clear, pH is 6, specific gravity 1.011, protein 3+, glucose 1+, ketone negative, blood negative, nitrite negative, bilirubin negative, urobilinogen normal, leukocyte esterase negative, wbc less than 1, rbc less than 1. Other laboratory data, complement level C3 is 84 and C4 is 9.5. Hepatitis C IgM antibody is negative, hepatitis B surface antigen negative, hepatitis B core antibody study IgM negative and hep C antibody is negative. DARY is pending. SPEP and UPEP is also pending. ASSESSMENT: In summary, Mr. Irving is an 83-year-old elderly [place] male with history of hypertension, diabetes, coronary artery disease, hyperlipidemia, chronic kidney disease, proteinuria was admitted with abdominal distention and pain and found to have a small bowel obstruction. 1. Small bowel obstruction, most likely secondary to previous surgery and adhesions. 2. Acute renal failure on chronic kidney disease. 3. Anemia most likely multifactorial. Chronic kidney disease and rule out lower gastrointestinal loss versus hemoglobinopathies. 3. Hypertension. 4. Diabetes. PLAN: Continue gentle IV hydration and half-normal saline 70 mL/hour. Continue Ferrlecit. Continue vitamins and we will start Epogen 10,000 units three times a week and also we will take hemoglobin electrophoresis. Continue his current blood pressure medication amlodipine 5 mg daily and metoprolol 50 mg p.o. b.i.d., and losartan 100 mg p.o. daily. Continue Crestor for hyperlipidemia. Continue clear liquids and advance diet as per the surgery recommendation. We will follow with you. Thank you for allowing me to participate in your patient's care. Aamir Galeano MD
--- NOTE | 2018-06-08 20:59 | CP.PCM.PN ---
Subjective - Date & Time of Evaluation Date of Evaluation: 06/08/18 Time of Evaluation: 17:30 - Subjective Subjective: General surgery note for Dr. Seymour Patient seen and examined at bedside. He has no complaints. tolerating soft diet well. denies N/V. endorses BM and flatus Objective - Vital Signs/Intake and Output Vital Signs (last 24 hours): Temp Pulse Resp BP Pulse Ox 97.7 F 58 L 20 160/73 H 98 06/08/18 15:00 06/08/18 16:18 06/08/18 15:00 06/08/18 15:00 06/08/18 16:18 - Medications Medications: Current Medications Acetaminophen (Tylenol 325mg Tab) 650 mg PO Q6 PRN PRN Reason: for temp 101 and above Last Admin: 06/07/18 21:59 Dose: 650 mg Amlodipine Besylate (Norvasc) 5 mg PO DAILY [facility] Last Admin: 06/08/18 09:58 Dose: 5 mg Aspirin (Ecotrin) 81 mg PO DAILY [facility] Epoetin Manny (Procrit) 10,000 unit SC MWF [facility] Ferric Sodium Gluconate Complex (Ferrlecit) 125 mg IVPB DAILY [facility] Stop: 06/09/18 14:31 Last Admin: 06/08/18 09:57 Dose: 125 mg Furosemide (Lasix) 20 mg IVP ONCE PRN PRN Reason: AFTER BLOOD TRANSFUSION Last Admin: 06/08/18 06:29 Dose: 20 mg Heparin Sodium (Porcine) (Heparin) 5,000 units SC Q8 [facility] Last Admin: 06/08/18 14:20 Dose: 5,000 units Hydrochlorothiazide (Hydrodiuril) 25 mg PO DAILY [facility] Last Admin: 06/08/18 09:58 Dose: 25 mg Losartan Potassium (Cozaar) 100 mg PO DAILY [facility] Last Admin: 06/08/18 09:57 Dose: 100 mg Metoprolol Tartrate (Lopressor) 50 mg PO BID [facility] Last Admin: 06/08/18 17:08 Dose: 50 mg Multivitamins (Hexavitamin) 1 tab PO DAILY [facility] Last Admin: 06/08/18 09:57 Dose: 1 tab Ondansetron HCl (Zofran Inj) 4 mg IVP Q6 PRN PRN Reason: Nausea/Vomiting Pantoprazole Sodium (Protonix Inj) 20 mg IVP DAILY [facility] Last Admin: 06/08/18 10:05 Dose: 20 mg Rosuvastatin Calcium (Crestor) 10 mg PO HS [facility] Last Admin: 06/07/18 22:03 Dose: 10 mg - Labs Labs: 06/08/18 11:00 06/08/18 11:00 PT 11.9 SECONDS (9.7-12.2) 06/06/18 03:46 INR 1.1 06/06/18 03:46 APTT 38 SECONDS (21-34) H 06/06/18 03:46 - Constitutional Appears: Well, Non-toxic, No Acute Distress - Head Exam Head Exam: ATRAUMATIC, NORMOCEPHALIC - Eye Exam Eye Exam: EOMI - ENT Exam ENT Exam: Mucous Membranes Moist - Respiratory Exam Respiratory Exam: NORMAL BREATHING PATTERN - Cardiovascular Exam Cardiovascular Exam: REGULAR RHYTHM - GI/Abdominal Exam GI & Abdominal Exam: Distended (mild, improved), Soft, Tenderness (LLQ). absent: Firm - Extremities Exam Extremities Exam: absent: Calf Tenderness, Pedal Edema - Neurological Exam Neurological Exam: Alert, Awake, Oriented x3 - Psychiatric Exam Psychiatric exam: Normal Affect, Normal Mood - Skin Skin Exam: Dry, Intact, Normal Color, Warm Assessment and Plan - Assessment and Plan (Free Text) Assessment: 83 M with PMH significant for recurrent SBO hospitalizations with resolving/resolved SBO Plan: - patient may be advanced to [facility] as tolerated - no further surgical management needed at this time, patient clear for D/C from surgical standpoint - discussed with Dr. Lion Thompson, PGY 1
--- NOTE | 2018-06-08 22:55 | CARD ---
APPROVED REPORT Date of service: 06/08/2018 EXAM: Two-dimensional and M-mode echocardiogram with Doppler and color Doppler. INDICATION CAD Mitral Valve Prolapse Congestive Heart Failure RISK FACTORS Hypertension Hyperlipidemia Diabetes 2D DIMENSIONS IVSd0.9 (0.7-1.1cm)Aortic Root (2D)3.1 (2.0-3.7cm) LVDd5.9 (3.9-5.9cm)PWd0.8 (0.7-1.1cm) LA [id number] (18-58mL)LVDs4.9 (2.5-4.0cm) FS (%) 25.0 %LVEF (%)55.0 (>50%) LVEF (Reynolds's)59.71 %IVC0.00 cm M-Mode DIMENSIONS Left Atrium (MM)4.69 (2.5-4.0cm)IVSd0.78 (0.7-1.1cm) Aortic Root2.77 (2.2-3.7cm)LVDd6.34 (4.0-5.6cm) Aortic Cusp Exc.1.63 (1.5-2.0cm)PWd0.75 (0.7-1.1cm) FS (%) 31 %LVDs4.36 (2.0-3.8cm) TAPSE16.01 cmLVEF (%)58 (>50%) Aortic Valve AI P 1/2 [id number] Mitral Valve MV E Wwwdosim763.1cm/sMV A Tulrjgqn21.7cm/sE/A ratio1.9 TDI Lateral E' Peak V7.00cm/sMedial E' Peak V4.03cm/sE/Lateral E'21.0 E/Medial E'36.5 Tricuspid Valve TR Peak [id number]/sTR Peak Gr.[id number] LEFT VENTRICLE The Left Ventricle is mildly dilated. There is normal left ventricular wall thickness. Left ventricle systolic function is normal. The Ejection Fraction is 55-60%. There is normal LV segmental wall motion. The left ventricular diastolic function is normal. RIGHT VENTRICLE The right ventricle is normal size. There is normal right ventricular wall thickness. The right ventricular systolic function is normal. ATRIA The left atrium is mildly dilated. The right atrium size is normal. The interatrial septum is intact with no evidence for an atrial septal defect. AORTIC VALVE The aortic valve is normal in structure. There is trace aortic regurgitation. There is no aortic valvular stenosis. MITRAL VALVE The mitral valve is normal in structure. There is no evidence of mitral valve prolapse. There is no mitral valve stenosis. Mitral regurgitation is moderate with eccentric jet. TRICUSPID VALVE The tricuspid valve is normal in structure. There is mild tricuspid regurgitation. Right ventricular systolic pressure is estimated at greater than 60 mmHg. There is severe pulmonary hypertension. PULMONIC VALVE The pulmonic valve is not well visualized. There is mild pulmonic valvular regurgitation. GREAT VESSELS The aortic root is normal in size. PERICARDIAL EFFUSION There is no significant pericardial effusion. <Conclusion> The LV systolic function is normal. The Ejection Fraction is 55-60%. There is trace aortic regurgitation. Mitral regurgitation is moderate with eccentric jet. There is mild tricuspid regurgitation. There is severe pulmonary hypertension. There is mild pulmonic valvular regurgitation.
[2018-06-09 08:03] LABS: BASO # 0.1 K/uL (0.0-0.2); BASO % 0.6 % (0.0-2.0); EOS # 0.5 K/uL (0.0-0.7); EOS % 4.5 % (0.0-4.0); HEMOGLOBIN 8.6 g/dL (12.0-18.0); LYMPH # 1.8 K/uL (1.0-4.3); LYMPH % 16.6 % (20.0-40.0); MEAN CORPUSCULAR HEMOGLOBIN 21.5 pg (27.0-31.0); MEAN CORPUSCULAR HGB CONC 31.9 g/dL (33.0-37.0); MEAN PLATELET VOLUME 8.8 fL (7.2-11.7); MONO # 1.3 K/uL (0.0-0.8); MONO % 12.5 % (0.0-10.0); NEUT % 65.8 % (50.0-75.0); RBC 4.02 Mil/uL (4.40-5.90); RED CELL DISTRIBUTION WIDTH 17.9 % (11.5-14.5); WHITE BLOOD COUNT 10.6 K/uL (4.8-10.8)
[2018-06-09 08:07] LABS: MEAN CELL VOLUME 67.4 fL (80.0-94.0)
--- NOTE | 2018-06-09 08:38 | CP.PCM.PN ---
Subjective - Date & Time of Evaluation Date of Evaluation: 06/09/18 Time of Evaluation: 07:00 - Subjective Subjective: GENERAL SURGERY PROGRESS NOTE FOR DR. ANTON Patient seen and examined at bedside. Pt is ambulating, tolerating diet. Denies nausea or vomiting. Had another BM this AM. Denies abdominal pain. Objective - Vital Signs/Intake and Output Vital Signs (last 24 hours): Temp Pulse Resp BP Pulse Ox 97.9 F 65 20 164/59 H 98 06/08/18 23:45 06/08/18 23:45 06/08/18 23:45 06/08/18 23:45 06/08/18 23:45 Intake and Output: 06/09/18 06/09/18 06:59 18:59 Intake Total 470 Output Total 450 Balance 20 - Medications Medications: Current Medications Acetaminophen (Tylenol 325mg Tab) 650 mg PO Q6 PRN PRN Reason: for temp 101 and above Last Admin: 06/07/18 21:59 Dose: 650 mg Amlodipine Besylate (Norvasc) 5 mg PO DAILY [facility] Last Admin: 06/08/18 09:58 Dose: 5 mg Aspirin (Ecotrin) 81 mg PO DAILY [facility] Epoetin Manny (Procrit) 10,000 unit SC MWF [facility] Ferric Sodium Gluconate Complex (Ferrlecit) 125 mg IVPB DAILY [facility] Stop: 06/09/18 14:31 Last Admin: 06/08/18 09:57 Dose: 125 mg Furosemide (Lasix) 20 mg IVP ONCE PRN PRN Reason: AFTER BLOOD TRANSFUSION Last Admin: 06/08/18 06:29 Dose: 20 mg Heparin Sodium (Porcine) (Heparin) 5,000 units SC Q8 [facility] Last Admin: 06/09/18 05:46 Dose: 5,000 units Hydrochlorothiazide (Hydrodiuril) 25 mg PO DAILY [facility] Last Admin: 06/08/18 09:58 Dose: 25 mg Losartan Potassium (Cozaar) 100 mg PO DAILY [facility] Last Admin: 06/08/18 09:57 Dose: 100 mg Metoprolol Tartrate (Lopressor) 50 mg PO BID [facility] Last Admin: 06/08/18 17:08 Dose: 50 mg Multivitamins (Hexavitamin) 1 tab PO DAILY [facility] Last Admin: 06/08/18 09:57 Dose: 1 tab Ondansetron HCl (Zofran Inj) 4 mg IVP Q6 PRN PRN Reason: Nausea/Vomiting Pantoprazole Sodium (Protonix Inj) 20 mg IVP DAILY [facility] Last Admin: 06/08/18 10:05 Dose: 20 mg Rosuvastatin Calcium (Crestor) 10 mg PO HS [facility] Last Admin: 06/08/18 21:13 Dose: 10 mg - Labs Labs: 06/09/18 08:00 06/08/18 11:00 PT 11.9 SECONDS (9.7-12.2) 06/06/18 03:46 INR 1.1 06/06/18 03:46 APTT 38 SECONDS (21-34) H 06/06/18 03:46 - Constitutional Appears: Non-toxic, No Acute Distress - Head Exam Head Exam: ATRAUMATIC, NORMAL INSPECTION - Eye Exam Eye Exam: EOMI, Normal appearance - Respiratory Exam Respiratory Exam: NORMAL BREATHING PATTERN. absent: Respiratory Distress - Cardiovascular Exam Cardiovascular Exam: +S1, +S2 - GI/Abdominal Exam GI & Abdominal Exam: Soft. absent: Distended, Firm, Guarding, Rigid, Tenderness, Rebound - Neurological Exam Neurological Exam: Alert, Awake, Oriented x3 - Psychiatric Exam Psychiatric exam: Normal Affect, Normal Mood - Skin Skin Exam: Normal Color Assessment and Plan - Assessment and Plan (Free Text) Assessment: 83yo M with SBO, resolved - Tolerating diet, having bowel function, ambulating - Clear for DC from surgical standpoint - D/w Dr. Lion Leavitt PGY-4
[2018-06-09] MEDS: Multiple Vitamins Tab PO SCH (09:23)
[2018-06-09] MEDS: Ferric Sodium Gluconat Complex 62.5 mg/5 ml Vial IVPB SCH (09:24)
--- NOTE | 2018-06-09 09:34 | CP.PCM.PN ---
Subjective - Date & Time of Evaluation Date of Evaluation: 06/09/18 Time of Evaluation: 09:30 - Subjective Subjective: chart review vitals noted high BP had BM had advanced diet patient seen conversant - happy no complaints discussed cardiac evaluation to complte before going home no surgery needed Objective - Vital Signs/Intake and Output Vital Signs (last 24 hours): Temp Pulse Resp BP Pulse Ox 98.3 F 76 20 194/80 H 97 06/09/18 08:51 06/09/18 08:51 06/09/18 08:51 06/09/18 08:51 06/09/18 08:51 Intake and Output: 06/09/18 06/09/18 06:59 18:59 Intake Total 470 Output Total 450 Balance 20 - Medications Medications: Current Medications Acetaminophen (Tylenol 325mg Tab) 650 mg PO Q6 PRN PRN Reason: for temp 101 and above Last Admin: 06/07/18 21:59 Dose: 650 mg Amlodipine Besylate (Norvasc) 5 mg PO DAILY [facility] Last Admin: 06/09/18 09:23 Dose: 5 mg Aspirin (Ecotrin) 81 mg PO DAILY [facility] Epoetin Manny (Procrit) 10,000 unit SC MWF [facility] Ferric Sodium Gluconate Complex (Ferrlecit) 125 mg IVPB DAILY [facility] Stop: 06/09/18 14:31 Last Admin: 06/09/18 09:24 Dose: 125 mg Furosemide (Lasix) 20 mg IVP ONCE PRN PRN Reason: AFTER BLOOD TRANSFUSION Last Admin: 06/08/18 06:29 Dose: 20 mg Heparin Sodium (Porcine) (Heparin) 5,000 units SC Q8 [facility] Last Admin: 06/09/18 05:46 Dose: 5,000 units Hydrochlorothiazide (Hydrodiuril) 25 mg PO DAILY [facility] Last Admin: 06/09/18 09:23 Dose: 25 mg Losartan Potassium (Cozaar) 100 mg PO DAILY [facility] Last Admin: 06/09/18 09:23 Dose: 100 mg Metoprolol Tartrate (Lopressor) 50 mg PO BID [facility] Last Admin: 06/09/18 09:24 Dose: 50 mg Multivitamins (Hexavitamin) 1 tab PO DAILY [facility] Last Admin: 06/09/18 09:23 Dose: 1 tab Ondansetron HCl (Zofran Inj) 4 mg IVP Q6 PRN PRN Reason: Nausea/Vomiting Pantoprazole Sodium (Protonix Inj) 20 mg IVP DAILY [facility] Last Admin: 06/09/18 09:23 Dose: 20 mg Rosuvastatin Calcium (Crestor) 10 mg PO HS [facility] Last Admin: 06/08/18 21:13 Dose: 10 mg - Labs Labs: 06/09/18 08:00 06/08/18 11:00 PT 11.9 SECONDS (9.7-12.2) 06/06/18 03:46 INR 1.1 06/06/18 03:46 APTT 38 SECONDS (21-34) H 06/06/18 03:46 - Constitutional Appears: No Acute Distress - Head Exam Head Exam: ATRAUMATIC, NORMOCEPHALIC - Eye Exam Eye Exam: Normal appearance - ENT Exam ENT Exam: Mucous Membranes Moist - Neck Exam Neck Exam: Full ROM - Respiratory Exam Respiratory Exam: Decreased Breath Sounds (clear but slighly congested towards bases ) - Cardiovascular Exam Cardiovascular Exam: REGULAR RHYTHM - GI/Abdominal Exam GI & Abdominal Exam: Soft, Normal Bowel Sounds. absent: Tenderness - Back Exam Back Exam: Full ROM. absent: rash noted - Neurological Exam Neurological Exam: Alert, Awake, Normal Gait, Oriented x3 - Psychiatric Exam Psychiatric exam: Normal Affect, Normal Mood - Skin Skin Exam: Intact, Normal Color Assessment and Plan (1) Small bowel obstruction Assessment & Plan: resolved with no surgery needed Status: Acute (2) Anemia Assessment & Plan: post transfusion, with CRI- on ferlicit and pocrit follw up h/h Status: Acute (3) Coronary arteriosclerosis Assessment & Plan: no chest pain on meds Status: Chronic (4) Hypertension associated with chronic kidney disease due to type 2 diabetes mellitus Assessment & Plan: renal aware, BP to control Status: Acute (5) Diabetes mellitus Assessment & Plan: due to NPO status, Dm meds were held, on FS monitoring, patient just resumed feeding- will resume accordingly Status: Acute - Assessment and Plan (Free Text) Assessment: further plan as per cardio
[2018-06-09] MEDS ORDERED: Nitroglycerin 50mg in D5W 50 MG/250 ML BOTTLE IV PRN ×3 (11:00→11:30)
--- NOTE | 2018-06-09 11:06 | PCM.RRT ---
<Roseanne Nicole Rosina - Last Filed: 06/10/18 07:06> [facility] Nurses Assessment - Situation Date: 06/09/18 Time [facility] was called: 10:54 [facility] Responder Arrival Time:: 10:55 [facility] Location:: Med/Surg [facility] Reason for Call: Respiratory Distress, Looks Sicker [facility] Called By: Physician, Patient/Family Request - IV IV Inserted during [facility]?: Yes New IV Insertion Tolerance: Good - Respiratory [facility] Delivery Method: Non Rebreather @% (15L) Oxygen Flow Rate: 20 - Ventilator Settings Ventilator Respiratory Rate Settin Ventilator Tidal Volume Settin - Diagnostic Test Ordered EKG: Yes Chest X-Ray: Yes - Stat Labs Ordered [facility] Stat Labs Ordered: CBC, TROPONIN [facility] Other Labs Ordered: CMP, Mag, Phos - Dede Coma Scale Coma Scale Eye Opening: Spontaneous Coma Scale Motor: Obeys Commands Movement Coma Scale Verbal: Oriented Coma Scale Total: 15 - Recommendations 5) [facility] Level of Care Recommendations: Transfer to ICU Notifications: Attending Physician, Consultations, Family or Designated Caregiver I.Reason for [facility] - A) Acute Change in Patient: (Select all that apply): Staff member or family is worried about patient, Acute change in respiratory rate less than 8 or greater than 28 (tachypnea) - Neurological Status (Select all that apply): Alert, Oriented - Respiratory Oxygen Delivery Method: Non Rebreather @% Oxygen Flow Rate: 20 - Constitutional Appears: Non-toxic, In Acute Distress - Head Head Exam: ATRAUMATIC, NORMAL INSPECTION, NORMOCEPHALIC - Eyes Eye Exam: EOMI, Normal appearance - Respiratory Exam Respiratory Exam: Accessory Muscle Use, Decreased Breath Sounds, Rhonchi - Cardiovascular Exam Cardiovascular Exam: Bradycardia, +S1, +S2 - GI/Abdominal Exam GI & Abdominal Exam: Soft, Normal Bowel Sounds. absent: Tenderness - Neurological Exam Neurological Exam: Alert, Awake, Oriented x3 - Extremities Exam Extremities Exam: Normal Inspection Plan - Assessment of Findings&Treatment Plan [facility] called for patient feeling very short of breath. Initial BP 237/91. Patient denied chest pain. Patient was found to have acute pulmonary edema with pink frothy sputum with severe shortness of breath and accessory muscle use. Lasix 20mg ivp given. Nitro drip ordered. Another Lasix 20mg ivp given and 2mg morphine iv. Cxray, EKG, CBC, CMP, Mag, Phos, AMANDA ordered. Patient placed on BiPAP and transferred immediately to ICU. <Surya Schwartz - Last Filed: 06/20/18 19:41> [facility] Nurses Assessment - Vital Signs Vital Signs: Rapid Response Vital Sign Blood Pressure 237/94 Temperature 97.5 F Oxygen Saturation 97 Attending/Attestation - Attestation I have personally seen and examined this patient.: Yes I have fully participated in the care of the patient.: Yes I have reviewed all pertinent clinical information, including history, physical exam and plan: Yes Notes (Text): 06/20/18 19:41 This is a late entry. Care of this patient was gone over in detail with resident Dr. Nicole. Surya Schwartz D.O.
[2018-06-09] MEDS ORDERED: Morphine 4 MG/ML VIAL ONE (11:16)
--- NOTE | 2018-06-09 11:47 | CP.PCM.CON ---
History of Present Illness - History of Present Illness History of Present Illness: Patient with a history of hypertension CAD diabetes small bowel obstruction renal insufficiency heart failure admitted to the hospital with possible recurrent small bowel obstruction. Patient was being monitored in the medical floor for small bowel obstruction. Had NG tube, it was removed later. Today suddenly patient become severe shortness of breath. Rapid response was called. Patient was immediately transferred to the intensive care unit Patient was noted to having severe acute pulmonary edema with pink frothy sputum, shortness of breath, and a severe accessory muscle usage on hypoxia and bradycardia. Patient was brought immediately to the ICU. Making some urine. Now he is placed on BiPAP. Nitroglycerin drip is running. Ramsay catheter inserted slight improvement in the vital signs noted Past medical history: CAD, post stent, prostate cancer, status post surgery, appendectomy, multiple hospitalization for small bowel obstruction, history of inguinal hernia repair in the past. Medications noted from the chart. Review of systems noted from the chart On examination: Patient is currently on BiPAP. ICU bed. FiO2 60%. Tolerating. Nitroglycerin 30 mcg/min Chest there are diffuse bilateral rales noted Regular heart sounds noted Abdomen soft nontender no pedal edema Patient's current labs reviewed, the labs during the [employer] still pending X-ray of the chest showing evidence of acute pulmonary edema Patient has elevated creatinine level 4.6 Patient received 60 mg IV Lasix now Nitroglycerin drip running now Morphine 2 mg IV given now. Assessment and recommendation: 83-year-old male With a history of renal insufficiency diabetes hypertension CAD now admitted with acute pulmonary edema systolic likely heart failure underlying diastolic heart failure cannot be ruled out. Flash pulmonary edema Supportive treatment at this time. BiPAP bronchodilator nitroglycerin drip. EKG done showing mild ischemic changes, but no ST-T changes noted Awaiting for labs We will continue to monitor in the intensive care unit closely. Patient's daughter at bedside spoke to her in detail. The overall prognosis is guarded, but condition is very critical. Past Patient History - Infectious Disease Hx of Infectious Diseases: None - Tetanus Immunizations Tetanus Immunization: Unknown - Past Medical History & Family History Past Medical History?: Yes - Past Social History Smoking Status: Never Smoked - CARDIAC Hx Cardiac Disorders: Yes (Coronary stent) Hx Congestive Heart Failure: Yes Hx Hypercholesterolemia: Yes Hx Hypertension: Yes - PULMONARY Hx Chronic Obstructive Pulmonary Disease (COPD): Yes - NEUROLOGICAL Hx Neurological Disorder: No - HEENT Hx HEENT Problems: Yes Hx Cataracts: Yes (both eyes) - RENAL Hx Chronic Kidney Disease: Yes - ENDOCRINE/METABOLIC Hx Diabetes Mellitus Type 2: Yes - HEMATOLOGICAL/ONCOLOGICAL Hx Anemia: Yes - INTEGUMENTARY Hx Dermatological Problems: No - MUSCULOSKELETAL/RHEUMATOLOGICAL Hx Falls: No - GASTROINTESTINAL Hx Diverticulitis: Yes - GENITOURINARY/GYNECOLOGICAL Hx Genitourinary Disorders: Yes Hx Prostate Cancer: Yes - PSYCHIATRIC Hx Substance Use: No - SURGICAL HISTORY Hx Appendectomy: Yes Hx Coronary Stent: Yes (3 yrs) - ANESTHESIA Hx Anesthesia: Yes Hx Anesthesia Reactions: No Hx Malignant Hyperthermia: No Meds Allergies/Adverse Reactions: Allergies Allergy/AdvReac Type Severity Reaction Status Date / Time No Known Allergies Allergy Verified 06/06/18 03:16 - Medications Medications: Current Medications Acetaminophen (Tylenol 325mg Tab) 650 mg PO Q6 PRN PRN Reason: for temp 101 and above Last Admin: 06/07/18 21:59 Dose: 650 mg Amlodipine Besylate (Norvasc) 5 mg PO DAILY [facility] Last Admin: 06/09/18 09:23 Dose: 5 mg Aspirin (Ecotrin) 81 mg PO DAILY [facility] Epoetin Manny (Procrit) 10,000 unit SC MWF [facility] Ferric Sodium Gluconate Complex (Ferrlecit) 125 mg IVPB DAILY [facility] Stop: 06/09/18 14:31 Last Admin: 06/09/18 09:24 Dose: 125 mg Furosemide (Lasix) 20 mg IVP ONCE PRN PRN Reason: AFTER BLOOD TRANSFUSION Last Admin: 06/08/18 06:29 Dose: 20 mg Heparin Sodium (Porcine) (Heparin) 5,000 units SC Q8 [facility] Last Admin: 06/09/18 05:46 Dose: 5,000 units Hydrochlorothiazide (Hydrodiuril) 25 mg PO DAILY [facility] Last Admin: 06/09/18 09:23 Dose: 25 mg Nitroglycerin/Dextrose (Nitroglycerin 50 Mg/250 Ml D5w) 50 mg in 250 mls @ 1.5 mls/hr IV .Q24H PRN; Protocol Losartan Potassium (Cozaar) 100 mg PO DAILY [facility] Last Admin: 06/09/18 09:23 Dose: 100 mg Metoprolol Tartrate (Lopressor) 50 mg PO BID [facility] Last Admin: 06/09/18 09:24 Dose: 50 mg Multivitamins (Hexavitamin) 1 tab PO DAILY [facility] Last Admin: 06/09/18 09:23 Dose: 1 tab Ondansetron HCl (Zofran Inj) 4 mg IVP Q6 PRN PRN Reason: Nausea/Vomiting Pantoprazole Sodium (Protonix Inj) 20 mg IVP DAILY [facility] Last Admin: 06/09/18 09:23 Dose: 20 mg Rosuvastatin Calcium (Crestor) 10 mg PO HS [facility] Last Admin: 06/08/18 21:13 Dose: 10 mg Results - Vital Signs Recent Vital Signs: Last Vital Signs Temp 98.3 F 06/09/18 08:51 Pulse 76 06/09/18 08:51 Resp 20 06/09/18 08:51 BP 195/80 H 06/09/18 11:33 Pulse Ox 97 06/09/18 08:51 - Labs Result Diagrams: 06/09/18 08:00 06/08/18 11:00 Labs: Laboratory Results - last 24 hr 06/07/18 06/08/18 06/08/18 08:33 09:10 11:00 WBC RBC Hgb Hct MCV MCH MCHC RDW Plt Count MPV Neut % (Auto) Lymph % (Auto) [place] % (Auto) Eos % (Auto) Baso % (Auto) Neut # (Auto) Lymph # (Auto) [place] # (Auto) Eos # (Auto) Baso # (Auto) Differential Comment POC Glucose (mg/dL) Iron % Saturation Ferritin 676.0 Total Protein (PEP) Ur Random Creatinine 38 U Random Total Protein 1991 H 2263 H Hepatitis A IgM Ab Hep Bs Antigen Hep B Core IgM Ab Hepatitis C Antibody 06/08/18 06/08/18 06/08/18 11:00 11:00 11:00 WBC RBC Hgb Hct MCV MCH MCHC RDW Plt Count MPV Neut % (Auto) Lymph % (Auto) [place] % (Auto) Eos % (Auto) Baso % (Auto) Neut # (Auto) Lymph # (Auto) [place] # (Auto) Eos # (Auto) Baso # (Auto) Differential Comment POC Glucose (mg/dL) Iron 119 % Saturation 55.6 H Ferritin Total Protein (PEP) 5.6 L Ur Random Creatinine U Random Total Protein Hepatitis A IgM Ab Negative Hep Bs Antigen Negative Hep B Core IgM Ab Negative Hepatitis C Antibody Negative 06/08/18 06/08/18 06/09/18 17:14 21:35 08:00 WBC 10.6 RBC 4.02 L Hgb 8.6 L Hct 27.1 L MCV 67.4 L MCH 21.5 L MCHC 31.9 L RDW 17.9 H Plt Count 168 MPV 8.8 Neut % (Auto) 65.8 Lymph % (Auto) 16.6 L [place] % (Auto) 12.5 H Eos % (Auto) 4.5 H Baso % (Auto) 0.6 Neut # (Auto) 7.0 Lymph # (Auto) 1.8 [place] # (Auto) 1.3 H Eos # (Auto) 0.5 Baso # (Auto) 0.1 Differential Comment POC Glucose (mg/dL) 118 H 184 H Iron % Saturation Ferritin Total Protein (PEP) Ur Random Creatinine U Random Total Protein Hepatitis A IgM Ab Hep Bs Antigen Hep B Core IgM Ab Hepatitis C Antibody
--- NOTE | 2018-06-09 15:03 | CP.PCM.PN ---
Subjective - Date & Time of Evaluation Date of Evaluation: 06/08/18 Time of Evaluation: 18:20 - Subjective Subjective: Patient seen and evaluated enies chest pain and dyspnea Physical Exam - Constitutional Appears: Non-toxic, No Acute Distress - ENT Exam ENT Exam: Mucous Membranes Moist - Respiratory Exam Respiratory Exam: Clear to Auscultation Bilateral, NORMAL BREATHING PATTERN - Cardiovascular Exam Cardiovascular Exam: REGULAR RHYTHM, +S1, +S2 - GI/Abdominal Exam GI & Abdominal Exam: Distended, Soft, Tenderness. absent: Firm, Guarding, Rebound, Rigid Additional comments: full, tender, distended NGT in place with bilious output Ex lap scar noted - Extremities Exam Extremities exam: Negative for: pedal edema, tenderness - Neurological Exam Neurological exam: Alert, Oriented x3 - Psychiatric Exam Psychiatric exam: Normal Affect, Normal Mood - Skin Skin Exam: Dry, Intact, Normal Color, Warm Assessment & Plan - Assessment and Plan (Free Text) Assessment: SBO improving 1. CAD s/p RCA stent 05/2016. No interval cardiac symptoms 2. Normal EF 3. HTN 4. CKD 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 EF 55% Avoid fluid overload Lasix as needed Naomy needs HD soon Objective - Vital Signs/Intake and Output Vital Signs (last 24 hours): Temp Pulse Resp BP Pulse Ox 98.8 F 71 17 136/65 100 06/09/18 12:00 06/09/18 14:40 06/09/18 14:40 06/09/18 14:36 06/09/18 14:40 Intake and Output: 06/09/18 06/09/18 06:59 18:59 Intake Total 470 12 Output Total 450 200 Balance 20 -188 - Medications Medications: Current Medications Acetaminophen (Tylenol 325mg Tab) 650 mg PO Q6 PRN PRN Reason: for temp 101 and above Last Admin: 06/07/18 21:59 Dose: 650 mg Amlodipine Besylate (Norvasc) 5 mg PO DAILY [facility] Last Admin: 06/09/18 09:23 Dose: 5 mg Aspirin (Ecotrin) 81 mg PO DAILY [facility] Epoetin Manny (Procrit) 10,000 unit SC MWF [facility] Furosemide (Lasix) 20 mg IVP ONCE PRN PRN Reason: AFTER BLOOD TRANSFUSION Last Admin: 06/08/18 06:29 Dose: 20 mg Furosemide (Lasix) 20 mg IVP BID [facility] Heparin Sodium (Porcine) (Heparin) 5,000 units SC Q8 [facility] Last Admin: 06/09/18 14:47 Dose: 5,000 units Hydrochlorothiazide (Hydrodiuril) 25 mg PO DAILY [facility] Last Admin: 06/09/18 09:23 Dose: 25 mg Nitroglycerin/Dextrose (Nitroglycerin 50 Mg/250 Ml D5w) 50 mg in 250 mls @ 1.5 mls/hr IV .Q24H PRN; Protocol Last Admin: 06/09/18 11:04 Dose: 5 mcg/min, 1.5 mls/hr Losartan Potassium (Cozaar) 100 mg PO DAILY [facility] Last Admin: 06/09/18 09:23 Dose: 100 mg Metoprolol Tartrate (Lopressor) 50 mg PO BID [facility] Last Admin: 06/09/18 09:24 Dose: 50 mg Multivitamins (Hexavitamin) 1 tab PO DAILY [facility] Last Admin: 06/09/18 09:23 Dose: 1 tab Pantoprazole Sodium (Protonix Inj) 20 mg IVP DAILY [facility] Last Admin: 06/09/18 09:23 Dose: 20 mg Rosuvastatin Calcium (Crestor) 10 mg PO HS [facility] Last Admin: 06/08/18 21:13 Dose: 10 mg - Labs Labs: 06/09/18 08:00 06/08/18 11:00 PT 11.9 SECONDS (9.7-12.2) 06/06/18 03:46 INR 1.1 06/06/18 03:46 APTT 38 SECONDS (21-34) H 06/06/18 03:46
--- NOTE | 2018-06-09 15:04 | CP.PCM.PN ---
Subjective - Date & Time of Evaluation Date of Evaluation: 06/09/18 Time of Evaluation: 15:03 - Subjective Subjective: Patient seen and evaluated Transferred to ICU for flash pulmonary edema On BiPAP Physical Exam - Constitutional Appears: Non-toxic, No Acute Distress - ENT Exam ENT Exam: Mucous Membranes Moist - Respiratory Exam Respiratory Exam: Clear to Auscultation Bilateral, NORMAL BREATHING PATTERN - Cardiovascular Exam Cardiovascular Exam: REGULAR RHYTHM, +S1, +S2 - GI/Abdominal Exam GI & Abdominal Exam: Distended, Soft, Tenderness. absent: Firm, Guarding, Rebound, Rigid Additional comments: full, tender, distended NGT in place with bilious output Ex lap scar noted - Extremities Exam Extremities exam: Negative for: pedal edema, tenderness - Neurological Exam Neurological exam: Alert, Oriented x3 - Psychiatric Exam Psychiatric exam: Normal Affect, Normal Mood - Skin Skin Exam: Dry, Intact, Normal Color, Warm Assessment & Plan - Assessment and Plan (Free Text) Assessment: SBO improving 1. CAD s/p RCA stent 05/2016. No interval cardiac symptoms 2. Normal EF 3. HTN 4. CKD 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 EF 55% Avoid fluid overload Lasix IV 20 bid Naomy needs HD soon Objective - Vital Signs/Intake and Output Vital Signs (last 24 hours): Temp Pulse Resp BP Pulse Ox 98.8 F 71 17 136/65 100 06/09/18 12:00 06/09/18 14:40 06/09/18 14:40 06/09/18 14:36 06/09/18 14:40 Intake and Output: 06/09/18 06/09/18 06:59 18:59 Intake Total 470 12 Output Total 450 200 Balance 20 -188 - Medications Medications: Current Medications Acetaminophen (Tylenol 325mg Tab) 650 mg PO Q6 PRN PRN Reason: for temp 101 and above Last Admin: 06/07/18 21:59 Dose: 650 mg Amlodipine Besylate (Norvasc) 5 mg PO DAILY [facility] Last Admin: 06/09/18 09:23 Dose: 5 mg Aspirin (Ecotrin) 81 mg PO DAILY [facility] Epoetin Manny (Procrit) 10,000 unit SC MWF [facility] Furosemide (Lasix) 20 mg IVP ONCE PRN PRN Reason: AFTER BLOOD TRANSFUSION Last Admin: 06/08/18 06:29 Dose: 20 mg Furosemide (Lasix) 20 mg IVP BID [facility] Heparin Sodium (Porcine) (Heparin) 5,000 units SC Q8 [facility] Last Admin: 06/09/18 14:47 Dose: 5,000 units Hydrochlorothiazide (Hydrodiuril) 25 mg PO DAILY [facility] Last Admin: 06/09/18 09:23 Dose: 25 mg Nitroglycerin/Dextrose (Nitroglycerin 50 Mg/250 Ml D5w) 50 mg in 250 mls @ 1.5 mls/hr IV .Q24H PRN; Protocol Last Admin: 06/09/18 11:04 Dose: 5 mcg/min, 1.5 mls/hr Losartan Potassium (Cozaar) 100 mg PO DAILY [facility] Last Admin: 06/09/18 09:23 Dose: 100 mg Metoprolol Tartrate (Lopressor) 50 mg PO BID [facility] Last Admin: 06/09/18 09:24 Dose: 50 mg Multivitamins (Hexavitamin) 1 tab PO DAILY [facility] Last Admin: 06/09/18 09:23 Dose: 1 tab Pantoprazole Sodium (Protonix Inj) 20 mg IVP DAILY [facility] Last Admin: 06/09/18 09:23 Dose: 20 mg Rosuvastatin Calcium (Crestor) 10 mg PO HS [facility] Last Admin: 06/08/18 21:13 Dose: 10 mg - Labs Labs: 06/09/18 08:00 06/08/18 11:00 PT 11.9 SECONDS (9.7-12.2) 06/06/18 03:46 INR 1.1 06/06/18 03:46 APTT 38 SECONDS (21-34) H 06/06/18 03:46
[2018-06-09 15:29] LABS: URINE BACTERIA RARE (<OCC); URINE BILIRUBIN NEGATIVE (NEGATIVE); URINE BLOOD 1+ (NEGATIVE); URINE CLARITY Clear (Clear); URINE COLOR Straw (YELLOW); URINE GLUCOSE (UA) NORMAL (Normal); URINE HYALINE CAST 0-2 /lpf (0-2); URINE LEUKOCYTE ESTERASE NEG Leu/uL (Negative); URINE PROTEIN 2+ mg/dL (NEGATIVE); URINE UROBILINOGEN NORMAL mg/dL (0.2-1.0)
[2018-06-09 16:30] LABS: BASO % 0.2 % (0.0-2.0); EOS % 0.3 % (0.0-4.0); HEMOGLOBIN 8.1 g/dL (12.0-18.0); LYMPH # 0.5 K/uL (1.0-4.3); LYMPH % 3.3 % (20.0-40.0); MEAN CELL VOLUME 68.1 fL (80.0-94.0); MEAN CORPUSCULAR HEMOGLOBIN 20.9 pg (27.0-31.0); MEAN CORPUSCULAR HGB CONC 30.6 g/dL (33.0-37.0); MEAN PLATELET VOLUME 8.9 fL (7.2-11.7); MONO % 6.4 % (0.0-10.0); NEUT # 13.5 K/uL (1.8-7.0); NEUT % 89.8 % (50.0-75.0); NRBC % 0.1 % (0.0-2.0); PLATELET COUNT 144 K/uL (130-400); RBC 3.88 Mil/uL (4.40-5.90); RED CELL DISTRIBUTION WIDTH 17.4 % (11.5-14.5)
--- NOTE | 2018-06-09 16:32 | RAD ---
Date of service: 06/09/2018 HISTORY: sob COMPARISON: Portable chest 06/07/2018 10:27 p.m.. FINDINGS: LUNGS: Patchy density right greater than left perihilar regions. PLEURA: No significant pleural effusion identified, no pneumothorax apparent. CARDIOVASCULAR: Calcific atherosclerotic changes are seen related to the thoracic aorta. Cardiomegaly appears stable. Moderate pulmonary vascular congestion suspected. OSSEOUS STRUCTURES: No significant abnormalities. VISUALIZED UPPER ABDOMEN: Normal. OTHER FINDINGS: None. IMPRESSION: Interval moderate pulmonary vascular congestion. Underlying airspace disease not excluded bilateral hilar regions, right greater than left.
[2018-06-09 16:49] LABS: ALB/GLOB RATIO 1.4 (1.0-2.1); ALBUMIN 3.5 g/dL (3.5-5.0); CALCIUM 7.9 mg/dl (8.6-10.4)
[2018-06-09 17:00] LABS: CK-MB 2.12 ng/mL (0.0-3.38); TROPONIN I 0.555 ng/mL (0.00-0.120)
[2018-06-09 17:09] LABS: BANDS 8 % (0-2); LYMPHOCYTE 4 % (20-40); MONOCYTE 4 % (0-10); NEUTROPHIL 84 % (50-75); PLATELET ESTIMATE NORMAL (NORMAL); TOTAL CELLS COUNTED 100
--- NOTE | 2018-06-09 17:49 | CP.PCM.PN ---
Subjective - Date & Time of Evaluation Date of Evaluation: 06/09/18 Time of Evaluation: 17:48 - Subjective Subjective: pt is seen and examined, follow up consult is dictated #[id number] Objective - Vital Signs/Intake and Output Vital Signs (last 24 hours): Temp Pulse Resp BP Pulse Ox 98.1 F 67 16 152/62 H 100 06/09/18 16:00 06/09/18 17:40 06/09/18 17:40 06/09/18 17:37 06/09/18 17:40 Intake and Output: 06/09/18 06/09/18 06:59 18:59 Intake Total 470 261 Output Total 450 725 Balance 20 -464 - Medications Medications: Current Medications Acetaminophen (Tylenol 325mg Tab) 650 mg PO Q6 PRN PRN Reason: for temp 101 and above Last Admin: 06/07/18 21:59 Dose: 650 mg Amlodipine Besylate (Norvasc) 5 mg PO DAILY [facility] Last Admin: 06/09/18 09:23 Dose: 5 mg Aspirin (Ecotrin) 81 mg PO DAILY [facility] Epoetin Manny (Procrit) 10,000 unit SC MWF [facility] Furosemide (Lasix) 20 mg IVP ONCE PRN PRN Reason: AFTER BLOOD TRANSFUSION Last Admin: 06/08/18 06:29 Dose: 20 mg Furosemide (Lasix) 20 mg IVP BID [facility] Heparin Sodium (Porcine) (Heparin) 5,000 units SC Q8 [facility] Last Admin: 06/09/18 14:47 Dose: 5,000 units Hydrochlorothiazide (Hydrodiuril) 25 mg PO DAILY [facility] Last Admin: 06/09/18 09:23 Dose: 25 mg Nitroglycerin/Dextrose (Nitroglycerin 50 Mg/250 Ml D5w) 50 mg in 250 mls @ 1.5 mls/hr IV .Q24H PRN; Protocol Last Admin: 06/09/18 11:04 Dose: 5 mcg/min, 1.5 mls/hr Losartan Potassium (Cozaar) 100 mg PO DAILY [facility] Last Admin: 06/09/18 09:23 Dose: 100 mg Metoprolol Tartrate (Lopressor) 50 mg PO BID [facility] Last Admin: 06/09/18 09:24 Dose: 50 mg Multivitamins (Hexavitamin) 1 tab PO DAILY [facility] Last Admin: 06/09/18 09:23 Dose: 1 tab Pantoprazole Sodium (Protonix Inj) 20 mg IVP DAILY [facility] Last Admin: 06/09/18 09:23 Dose: 20 mg Rosuvastatin Calcium (Crestor) 10 mg PO HS [facility] Last Admin: 06/08/18 21:13 Dose: 10 mg - Labs Labs: 06/09/18 16:25 06/09/18 16:25 PT 11.9 SECONDS (9.7-12.2) 06/06/18 03:46 INR 1.1 06/06/18 03:46 APTT 38 SECONDS (21-34) H 06/06/18 03:46
[2018-06-10] MEDS ORDERED: Labetalol 5mg/ml (4ml) IVP ONE (00:46)
--- NOTE | 2018-06-10 03:12 | PN ---
DATE: 06/09/2018 FOLLOWUP RENAL CONSULTATION LOCATION: The patient is located in ICU room 3. REQUESTED BY: Ana Noel MD REASON FOR FOLLOWUP: Chronic kidney disease, anemia, shortness of breath. SUBJECTIVE: Mr. Irving is an 83-year-old elderly [place] male with a past medical history significant for longstanding hypertension, diabetes, coronary artery disease, status post stent placement, hyperlipidemia, chronic kidney disease, proteinuria, anemia who was admitted with chief complaints of abdominal distention and pain. The patient was found to have a small bowel obstruction. Subsequently, the patient was placed on NG tube with low suction, and his symptoms improved slowly. The patient was also found to have anemia on admission and status post transfusion of 2 units of packed RBC. The patient was on clear liquids for recent small bowel obstruction. The patient was suddenly complaining of shortness of breath this morning. The patient had ASSISTANT OFFSET PRESS OPERATOR and transferred to ICU, started on IV nitro and also BiPAP and IV Lasix. The patient is feeling much better now and less shortness of breath. No chest pain. No palpitation. No fever. No cough. No abdominal pain. No nausea, vomiting, or diarrhea. PHYSICAL EXAMINATION: VITAL SIGNS: As follows: Blood pressure this evening 162/68, pulse 63, respirations 16, saturation 100% and temperature is 98.1. Height 5 feet 4 inches. Weight is 135 pounds. GENERAL: Mr. Irving is an 83-year-old elderly [place] male, moderately built, moderate nourished, not in acute distress. HEENT: Pupils are normal and reactive to light and accommodation. Conjunctivae pink. Sclerae anicteric. Tongue is moist. Trachea is midline. LUNGS: Symmetric on both sides. Bilateral breath sounds present. Bilateral crackles present, left more than the right. CARDIOVASCULAR SYSTEMS: Paoli at the fifth intercostal space, midclavicular line. S1 and S2 audible. No murmur. No gallop. ABDOMEN: Normal in appearance. Soft, tympanitic. No guarding. No rigidity. No hepatosplenomegaly. CENTRAL NERVOUS SYSTEM: The patient is alert, awake, oriented x3. Nonfocal neuro examination. Cranial nerves II through XII grossly intact. Sensory and motor system is within normal limits. EXTREMITIES: No cyanosis, no clubbing, no edema. MEDICATIONS: His current medications include as follows: Losartan 100 mg p.o. daily, Crestor 10 mg daily, aspirin 81 mg daily, subcu heparin 5000 units every 8 hours, multivitamin one tablet daily, hydrochlorothiazide 25 mg p.o. daily, Lasix 40 mg IV b.i.d., metoprolol 50 mg p.o. b.i.d., IV nitroglycerin at 5 mcg per minute, amlodipine 5 mg p.o. daily, Procrit 10,000 units three times a week, Protonix 20 mg IV daily, and Tylenol. LABORATORY DATA: Include as follows as of this afternoon: Sodium 135, potassium 4.8, chloride 104, CO2 of 21, BUN 54, creatinine is 5, GFR is 11, glucose 232, calcium 7.9, phosphorus 3.1, and magnesium is 2. Total bili 0.9, AST 25, ALT 19, alkaline phosphatase 114. CPK 137, CK-MB 2.1, and troponin 0.55. Total protein 6 and albumin is 3.5.. Chest x-ray this morning, interval moderate pulmonary venous vascular congestion and underlying airspace disease not excluded in bilateral hilar regions, right greater than the left. Echocardiogram as of 06/07/2018, impression, left ventricular systolic function is normal and ejection fraction is 55% to 60%. There is trace aortic regurgitation and mitral regurgitation is moderate with left eccentric jet. There is mild tricuspid regurgitation. There is severe pulmonary hypertension. There is mild pulmonary vascular regurgitation. ASSESSMENT AND PLAN: In summary, Mr. Irving is an about 83-year-old elderly [place] male with a history of longstanding hypertension, diabetes, coronary artery disease, status post stent placement, hyperlipidemia, anemia, proteinuria, chronic kidney disease with worsening renal function with a baseline creatinine on 05/21/2015 about 2 and on 07/28/2016 creatinine 2.8. His recent creatinine on 12/29/2017 was 3.7 and 04/18/2018 was 4.2 with flash pulmonary edema and status post ASSISTANT OFFSET PRESS OPERATOR this morning. 1. 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 2. Status post small bowel obstruction. 3. Anemia secondary to renal failure, cannot rule out iron-deficiency anemia. 4. Congestive heart failure. 5. Severe pulmonary hypertension. Discussed with the patient's family regarding possible very near future hemodialysis and need for hemodialysis access placement. Also, we will continue Lasix 40 mg intravenously every 12 hours today and re-evaluate in the morning, and we will adjust the dose as needed. Also, we will obtain vein mapping of the both upper extremities. Avoid intravenous lines and blood drawn from the left upper extremity. I discussed with the patient's two daughters and the patient's at bedside in detail regarding the need for access, and also we will continue to monitor troponin levels. We will get troponin levels every 8 hours x3. Thank you for allowing me to participate in your patient's care. Continue Epogen, continue intravenous iron and continue vitamins. Thank you for allowing me to participate in your patient's care. Follow up with Cardiology. Aamir Galeano MD
[2018-06-10 06:17] LABS: BASO # 0.1 K/uL (0.0-0.2); BASO % 0.3 % (0.0-2.0); HEMOGLOBIN 7.9 g/dL (12.0-18.0); LYMPH # 1.5 K/uL (1.0-4.3); LYMPH % 7.4 % (20.0-40.0); MEAN CELL VOLUME 67.1 fL (80.0-94.0); MEAN CORPUSCULAR HEMOGLOBIN 21.1 pg (27.0-31.0); MEAN CORPUSCULAR HGB CONC 31.5 g/dL (33.0-37.0); MEAN PLATELET VOLUME 9.8 fL (7.2-11.7); MONO # 2.9 K/uL (0.0-0.8); MONO % 14.5 % (0.0-10.0); NEUT # 15.3 K/uL (1.8-7.0); NEUT % 77.8 % (50.0-75.0); NRBC % 0.1 % (0.0-2.0); PLATELET COUNT 122 K/uL (130-400); RBC 3.75 Mil/uL (4.40-5.90); RED CELL DISTRIBUTION WIDTH 16.9 % (11.5-14.5); WHITE BLOOD COUNT 19.7 K/uL (4.8-10.8)
[2018-06-10 06:37] LABS: ALB/GLOB RATIO 1.2 (1.0-2.1); ALBUMIN 3.3 g/dL (3.5-5.0)
[2018-06-10 06:45] LABS: TROPONIN I 1.36 ng/mL (0.00-0.120)
[2018-06-10 08:11] LABS: BANDS 7 % (0-2); LYMPHOCYTE 6 % (20-40); MONOCYTE 18 % (0-10); NEUTROPHIL 68 % (50-75); REACTIVE LYMPHOCYTES 1 % (0-0); TOTAL CELLS COUNTED 100
[2018-06-10 08:12] LABS: ANISOCYTOSIS SLIGHT; HYPOCHROMIC MODERATE; MICROCYTOSIS SLIGHT; PLATELET ESTIMATE SLIGHTLY DECREASED (NORMAL)
[2018-06-10 08:13] LABS: OVALOCYTES SLIGHT
--- NOTE | 2018-06-10 08:24 | CP.PCM.PN ---
Subjective - Date & Time of Evaluation Date of Evaluation: 06/10/18 Time of Evaluation: 08:30 - Subjective Subjective: chart review had rapid response and transferred to ICU on BIPAP CXR review-congestion Labs noted elevated troponin patient seen in ICU daughter by bedside conversant, currently no complaints aware of condition and further plan had discussion with dialysis aware of further cardiac eval Objective - Vital Signs/Intake and Output Vital Signs (last 24 hours): Temp Pulse Resp BP Pulse Ox 97.6 F 65 16 135/54 L 100 06/10/18 04:00 06/10/18 06:23 06/10/18 06:23 06/10/18 06:23 06/10/18 06:23 Intake and Output: 06/10/18 06/10/18 06:59 18:59 Intake Total 36 6 Output Total 810 75 Balance -774 -69 - Medications Medications: Current Medications Acetaminophen (Tylenol 325mg Tab) 650 mg PO Q6 PRN PRN Reason: for temp 101 and above Last Admin: 06/09/18 23:45 Dose: 650 mg Amlodipine Besylate (Norvasc) 5 mg PO DAILY [facility] Last Admin: 06/09/18 09:23 Dose: 5 mg Aspirin (Ecotrin) 81 mg PO DAILY [facility] Epoetin Manny (Procrit) 10,000 unit SC MWF [facility] Furosemide (Lasix) 40 mg IVP BID [facility] Last Admin: 06/10/18 00:38 Dose: 40 mg Heparin Sodium (Porcine) (Heparin) 5,000 units SC Q8 [facility] Last Admin: 06/10/18 06:36 Dose: 5,000 units Hydrochlorothiazide (Hydrodiuril) 25 mg PO DAILY [facility] Last Admin: 06/09/18 09:23 Dose: 25 mg Nitroglycerin/Dextrose (Nitroglycerin 50 Mg/250 Ml D5w) 50 mg in 250 mls @ 1.5 mls/hr IV .Q24H PRN; Protocol Last Titration: 06/09/18 14:00 Dose: 10 mcg/min, 3 mls/hr Losartan Potassium (Cozaar) 100 mg PO DAILY [facility] Last Admin: 06/09/18 09:23 Dose: 100 mg Metoprolol Tartrate (Lopressor) 50 mg PO BID [facility] Last Admin: 06/09/18 18:21 Dose: 50 mg Multivitamins (Hexavitamin) 1 tab PO DAILY [facility] Last Admin: 06/09/18 09:23 Dose: 1 tab Pantoprazole Sodium (Protonix Inj) 20 mg IVP DAILY [facility] Last Admin: 06/09/18 09:23 Dose: 20 mg Rosuvastatin Calcium (Crestor) 10 mg PO HS [facility] Last Admin: 06/09/18 23:10 Dose: 10 mg - Labs Labs: 06/10/18 06:11 06/10/18 06:09 PT 11.9 SECONDS (9.7-12.2) 06/06/18 03:46 INR 1.1 06/06/18 03:46 APTT 38 SECONDS (21-34) H 06/06/18 03:46 - Constitutional Appears: No Acute Distress - Head Exam Head Exam: ATRAUMATIC, NORMOCEPHALIC - Eye Exam Eye Exam: Normal appearance. absent: Nystagmus - ENT Exam ENT Exam: Mucous Membranes Moist - Neck Exam Neck Exam: Full ROM - Respiratory Exam Respiratory Exam: Decreased Breath Sounds (with mild congestion), NORMAL BREATHING PATTERN - Cardiovascular Exam Cardiovascular Exam: REGULAR RHYTHM - GI/Abdominal Exam GI & Abdominal Exam: Soft, Normal Bowel Sounds. absent: Tenderness - Extremities Exam Extremities Exam: Full ROM. absent: Pedal Edema - Back Exam Back Exam: Full ROM. 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 Assessment & Plan: Patient with Hypertension and Renal Failure-with impending dialysis- plan as per renal Status: Acute (2) Coronary arteriosclerosis Assessment & Plan: CAD need further cardiac evaluation- discussion with cardio, awaiting dialysis plan Status: Chronic (3) Small bowel obstruction Assessment & Plan: resolved with BM Status: Acute (4) Anemia Assessment & Plan: with Renal failure procrit iron post transfusion- monitor Status: Acute (5) Diabetes mellitus Assessment & Plan: continue to monitor - FS onthe 200's, will re start medications Status: Acute (6) Renal insufficiency Assessment & Plan: plan for dialysis asper renal Status: Acute (7) Fever of unknown origin (FUO) Assessment & Plan: Fever, with no clear focus with episodic respiratory attack- antibiotic started Status: Acute
--- NOTE | 2018-06-10 09:41 | CP.PCM.PN ---
Subjective - Date & Time of Evaluation Date of Evaluation: 06/10/18 Time of Evaluation: 07:00 - Subjective Subjective: Surgery: Dr. Seymour Pt seen and examined. Yesterday an COMMUNICATIONS CLERK was called due to pt feeling SOB. He was transferred to the ICU and started on BiPAP secondary to flash pulmonary edema. This morning pt states he feels well and denies any abdominal pain. States he's tolerating diet and had a BM yesterday. Denies fevers/chills. Objective - Vital Signs/Intake and Output Vital Signs (last 24 hours): Temp Pulse Resp BP Pulse Ox 98.5 F 67 16 132/60 100 06/10/18 08:00 06/10/18 08:00 06/10/18 08:00 06/10/18 07:23 06/10/18 08:00 Intake and Output: 06/10/18 06/10/18 06:59 18:59 Intake Total 36 6 Output Total 810 75 Balance -774 -69 - Medications Medications: Current Medications Amlodipine Besylate (Norvasc) 10 mg PO DAILY [facility] Aspirin (Ecotrin) 81 mg PO DAILY [facility] Epoetin Manny (Procrit) 10,000 unit SC MWF [facility] Furosemide (Lasix) 40 mg IVP BID [facility] Last Admin: 06/10/18 00:38 Dose: 40 mg Heparin Sodium (Porcine) (Heparin) 5,000 units SC Q8 [facility] Last Admin: 06/10/18 06:36 Dose: 5,000 units Hydralazine HCl (Apresoline) 10 mg PO TID [facility] Hydrochlorothiazide (Hydrodiuril) 25 mg PO DAILY [facility] Last Admin: 06/09/18 09:23 Dose: 25 mg Nitroglycerin/Dextrose (Nitroglycerin 50 Mg/250 Ml D5w) 50 mg in 250 mls @ 1.5 mls/hr IV .Q24H PRN; Protocol Last Titration: 06/09/18 14:00 Dose: 10 mcg/min, 3 mls/hr Losartan Potassium (Cozaar) 100 mg PO DAILY [facility] Last Admin: 06/09/18 09:23 Dose: 100 mg Metoprolol Tartrate (Lopressor) 50 mg PO BID [facility] Last Admin: 06/09/18 18:21 Dose: 50 mg Multivitamins (Hexavitamin) 1 tab PO DAILY [facility] Last Admin: 06/09/18 09:23 Dose: 1 tab Pantoprazole Sodium (Protonix Inj) 20 mg IVP DAILY [facility] Last Admin: 06/09/18 09:23 Dose: 20 mg Rosuvastatin Calcium (Crestor) 10 mg PO HS [facility] Last Admin: 06/09/18 23:10 Dose: 10 mg - Labs Labs: 06/10/18 06:11 06/10/18 06:09 PT 11.9 SECONDS (9.7-12.2) 06/06/18 03:46 INR 1.1 06/06/18 03:46 APTT 38 SECONDS (21-34) H 06/06/18 03:46 - Constitutional Appears: Well, No Acute Distress - Head Exam Head Exam: ATRAUMATIC, NORMOCEPHALIC - Eye Exam Eye Exam: Normal appearance - ENT Exam ENT Exam: Mucous Membranes Moist - Respiratory Exam Respiratory Exam: NORMAL BREATHING PATTERN - Cardiovascular Exam Cardiovascular Exam: RRR - GI/Abdominal Exam GI & Abdominal Exam: Soft. absent: Distended, Tenderness - Neurological Exam Neurological Exam: Alert, Awake, Oriented x3 - Skin Skin Exam: Dry, Warm Assessment and Plan - Assessment and Plan (Free Text) Assessment: 83M admitted for SBO, now resolved. However, pt with flash pulmonary edema being treated in the ICU Plan: - cont medical mangement per ICU/primary teams - no further surgical intervention at this time - encourage ambulation - d/w Dr. Lion Rowan
[2018-06-10] MEDS: Multiple Vitamins Tab PO SCH (10:00)
[2018-06-10] MEDS: EPOETIN ALFA 10,000 UNIT/ML ML SC SCH (10:01)
--- NOTE | 2018-06-10 12:55 | CT ---
PROCEDURE: CT Abdomen and Pelvis without Oral or IV contrast. HISTORY: wbc increasing, hx sbo COMPARISON: CT abdomen and pelvis without contrast performed 06/06/18 TECHNIQUE: Contiguous axial images of the abdomen and pelvis. No oral or IV contrast administered. Coronal and Sagittal reformats generated and reviewed. Radiation dose: Total exam DLP = 1351.86 mGy-cm. This CT exam was performed using one or more of the following dose reduction techniques: Automated exposure control, adjustment of the mA and/or kV according to patient size, and/or use of iterative reconstruction technique. FINDINGS: There is limited evaluation of the solid organs without the administration of IV contrast. Examination limited by motion. LOWER THORAX: Small bibasilar infiltrates/edema. Small bilateral pleural effusions and associated consolidations. No visible pneumothorax. Partially imaged cardiomegaly. Trace pericardial effusion. Small hiatal hernia. LIVER: Unremarkable unenhanced appearance. GALLBLADDER AND BILE DUCTS: Unremarkable unenhanced appearance. PANCREAS: Unremarkable unenhanced appearance. SPLEEN: Unremarkable unenhanced appearance. ADRENALS: Nodular hypertrophy left adrenal gland. Right adrenal gland appears grossly unremarkable. KIDNEYS AND URETERS: No hydronephrosis or obstructing renal calculus. BLADDER: Ramsay catheter within a decompressed thick-walled urinary bladder. Air within the urinary bladder presumably due to recent instrumentation. REPRODUCTIVE: Uterus is present. APPENDIX: The appendix appears within normal limits of caliber. No secondary signs of acute appendicitis. BOWEL: The stomach is nondistended. Lack of oral contrast limits evaluation for bowel pathology. The bowel loops appear within normal limits of caliber without evidence of intestinal obstruction. PERITONEUM: No significant free fluid. No definite free air. LYMPH NODES: No bulky lymphadenopathy identified. VASCULATURE: Dense atherosclerotic calcifications of the aorta and branches. No aortic aneurysm. BONES: Osseous demineralization. Degenerative changes. Grade 1 anterolisthesis of L4 on L5. OTHER FINDINGS: Nonobstructive bowel containing left inguinal hernia. IMPRESSION: Examination limited by motion as well as lack of oral and IV contrast. Small bibasilar infiltrates/edema. Small bilateral pleural effusions and associated consolidations. Nonobstructive bowel containing left inguinal hernia. Nodular hypertrophy left adrenal gland. Ramsay catheter within a decompressed thick-walled urinary bladder. Air within the urinary bladder presumably due to recent instrumentation. Additional findings as above.
--- NOTE | 2018-06-10 13:34 | CP.CCUPN ---
CCU Subjective - Physician Review Subjective (Free Text): 06/10/18 13:28 Critical care progress note for Dr. Rodriguez. Patient seen and examined at bedside. Overnight patient spiked 1x fever of 102; controlled with tylenol. Additionally patient stated overnight he had some SOB that required the use of BIPAP. This AM patient has no active complaints. Patient is sitting well in bed and states he currently has no SOB. Patient denies headaches, vision changes, nausea, vomiting, f/c, chest pain. CCU Objective - Vital Signs / Intake & Output Vital Signs (Last 4 hours): Vital Signs Temp Pulse Resp BP Pulse Ox 06/10/18 12:31 67 19 143/44 L 100 06/10/18 12:05 72 17 146/47 L 100 06/10/18 12:00 100.8 F H 75 17 100 06/10/18 11:42 78 21 179/76 H 100 06/10/18 11:30 84 25 H 241/107 H 99 06/10/18 11:26 90 29 H 224/118 H 100 06/10/18 11:20 71 06/10/18 11:12 92 H 26 H 06/10/18 10:52 75 180/68 H 99 06/10/18 10:44 76 16 176/61 H 100 06/10/18 10:29 79 16 152/59 H 100 06/10/18 10:00 75 18 143/58 L 100 Intake and Output (Last 8hrs): Intake & Output 06/09/18 06/10/18 06/10/18 22:59 06:59 14:59 Intake Total 264 24 564 Output Total 915 570 475 Balance -651 -546 89 Intake: IV 189 Intake, IV Amount 24 24 15 Right Antecubital 24 24 15 Oral 240 360 Output: Urine 915 570 475 Urethral (Ramsay) [phone] - Physical Exam Head: Positive for: Atraumatic, Normocephalic Pupils: Positive for: PERRL Conjunctiva: Positive for: Normal Mouth: Positive for: Moist Mucous Membranes Neck: Positive for: Normal Range of Motion Respiratory/Chest: Positive for: Good Air Exchange, Rales (R > L ). Negative for: Accessory Muscle Use Cardiovascular: Positive for: Normal S1, S2 Abdomen: Positive for: Normal Bowel Sounds. Negative for: Tenderness, Distention Lower Extremity: Positive for: Normal Inspection. Negative for: Edema, Cyanosis Neurological: Positive for: GCS=15, Speech Normal Skin: Positive for: Warm, Normal Color Psychiatric: Positive for: Oriented x 3 - Medications Active Medications: Active Medications Generic Name Dose Route Start Last Admin Trade Name Freq PRN Reason Stop Dose Admin Amlodipine Besylate 10 mg 06/10/18 10:00 06/10/18 10:05 Norvasc PO 10 mg DAILY PATTI Administration Aspirin 81 mg 06/06/18 10:00 06/10/18 10:00 Ecotrin PO 81 mg DAILY PATTI Administration Epoetin Manny 10,000 unit 06/10/18 09:00 06/10/18 10:01 Procrit SC 10,000 unit MWF [facility] Administration Furosemide 40 mg 06/09/18 20:00 06/10/18 10:00 Lasix IVP 40 mg BID PATTI Administration Heparin Sodium (Porcine) 5,000 units 06/07/18 14:00 06/10/18 06:36 Heparin SC 5,000 units Q8 PATTI Administration Hydralazine HCl 10 mg 06/10/18 10:00 06/10/18 10:03 Apresoline PO 10 mg TID PATTI Administration Hydrochlorothiazide 25 mg 06/08/18 10:00 06/10/18 10:03 Hydrodiuril PO 25 mg DAILY [facility] Administration Nitroglycerin/Dextrose 50 mg in 250 mls @ 1.5 mls/hr 06/09/18 11:30 06/10/18 13:01 Nitroglycerin 50 Mg/250 Ml D5w IV 0 mcg/min .Q24H PRN 0 mls/hr Titration Protocol 5 MCG/MIN Vancomycin/Sodium Chloride 1 gm in 200 mls @ 133.333 mls/hr 06/10/18 14:00 Vancomycin 1 Gm/Ns 200 Ml IVPB 06/10/18 15:29 ONCE ONE Protocol Piperacillin Sod/Tazobactam Sod 2.25 gm in 50 mls @ 100 mls/hr 06/10/18 13:30 Zosyn 2.25 Gm Iv Premix IVPB Q6H [facility] Protocol Insulin Aspart 0 unit 06/10/18 16:30 Novolog SC ACHS [facility] Protocol Losartan Potassium 100 mg 06/07/18 10:00 06/10/18 09:59 Cozaar PO 100 mg DAILY [facility] Administration Metoprolol Tartrate 50 mg 06/07/18 10:00 06/10/18 10:00 Lopressor PO 50 mg BID PATTI Administration Multivitamins 1 tab 06/07/18 10:00 06/10/18 10:00 Hexavitamin PO 1 tab DAILY PATTI Administration Pantoprazole Sodium 20 mg 06/06/18 10:00 06/10/18 10:01 Protonix Inj IVP 20 mg DAILY PATTI Administration Rosuvastatin Calcium 10 mg 06/06/18 22:00 06/09/18 23:10 Crestor PO 10 mg HS PATTI Administration - Patient Studies Lab Studies: Microbiology Studies 06/09/18 15:14 Urine Culture - Final Urine,Ramsay No Growth (<1,000 CFU/ML) 06/07/18 21:49 Blood Culture - Preliminary Blood-Venous NO GROWTH AFTER 48 HOURS 06/07/18 21:49 Blood Culture - Preliminary Blood-Venous NO GROWTH AFTER 48 HOURS 06/07/18 23:15 Urine Culture - Final Urine Random No Growth (<1,000 CFU/ML) Lab Studies 06/10/18 06/10/18 06/10/18 Range/Units 11:52 07:14 06:11 WBC 19.7 H (4.8-10.8) K/uL RBC 3.75 L (4.40-5.90) Mil/uL Hgb 7.9 L (12.0-18.0) g/dL Hct 25.2 L (35.0-51.0) % MCV 67.1 L (80.0-94.0) fL MCH 21.1 L (27.0-31.0) pg MCHC 31.5 L (33.0-37.0) g/dL RDW 16.9 H (11.5-14.5) % Plt Count 122 L D (130-400) K/uL MPV 9.8 (7.2-11.7) fL Neut % (Auto) 77.8 H (50.0-75.0) % Lymph % (Auto) 7.4 L (20.0-40.0) % [place] % (Auto) 14.5 H (0.0-10.0) % Eos % (Auto) 0.0 (0.0-4.0) % Baso % (Auto) 0.3 (0.0-2.0) % Neut # (Auto) 15.3 H (1.8-7.0) K/uL Lymph # (Auto) 1.5 (1.0-4.3) K/uL [place] # (Auto) 2.9 H (0.0-0.8) K/uL Eos # (Auto) 0.0 (0.0-0.7) K/uL Baso # (Auto) 0.1 (0.0-0.2) K/uL Neutrophils % (Manual) 68 (50-75) % Band Neutrophils % 7 H (0-2) % Lymphocytes % (Manual) 6 L (20-40) % Reactive Lymphs % 1 H (0-0) % Monocytes % (Manual) 18 H (0-10) % Platelet Estimate Slightly decreased L (NORMAL) Hypochromasia (manual) Moderate Anisocytosis (manual) Slight Microcytosis (manual) Slight Ovalocytes Slight Sodium (132-148) mmol/L Potassium (3.6-5.2) mmol/L Chloride (98-107) mmol/L Carbon Dioxide (22-30) mmol/L Anion Gap (10-20) BUN (9-20) mg/dL Creatinine (0.8-1.5) mg/dL Est GFR ( Amer) Est GFR (Non-Af Amer) POC Glucose (mg/dL) 246 H 174 H (65-110) mg/dL Random Glucose (75-110) mg/dL Calcium (8.6-10.4) mg/dl Phosphorus (2.5-4.5) mg/dL Magnesium (1.6-2.3) mg/dL Total Bilirubin (0.2-1.3) mg/dL AST (17-59) U/L ALT (21-72) U/L Alkaline Phosphatase (38-126) U/L Total Creatine Kinase (55-170) U/L CK-MB (Mass) (0.0-3.38) ng/mL Troponin I (0.00-0.120) ng/mL Total Protein (6.3-8.3) g/dL Albumin (3.5-5.0) g/dL Globulin (2.2-3.9) gm/dL Albumin/Globulin Ratio (1.0-2.1) Urine Color (YELLOW) Urine Clarity (Clear) Urine pH (5.0-8.0) Ur Specific [place] (1.003-1.030) Urine Protein (NEGATIVE) mg/dL Urine Glucose (UA) (Normal) mg/dL Urine Ketones (NEGATIVE) mg/dL Urine Blood (NEGATIVE) Urine Nitrate (NEGATIVE) Urine Bilirubin (NEGATIVE) Urine Urobilinogen (0.2-1.0) mg/dL Ur Leukocyte Esterase (Negative) Fredy/uL Urine WBC (Auto) (0-5) /hpf Urine RBC (Auto) (0-3) /hpf Urine Bacteria (<OCC) Hyaline Casts (0-2) /lpf 06/10/18 06/09/18 06/09/18 Range/Units 06:09 23:29 20:49 WBC (4.8-10.8) K/uL RBC (4.40-5.90) Mil/uL Hgb (12.0-18.0) g/dL Hct (35.0-51.0) % MCV (80.0-94.0) fL MCH (27.0-31.0) pg MCHC (33.0-37.0) g/dL RDW (11.5-14.5) % Plt Count (130-400) K/uL MPV (7.2-11.7) fL Neut % (Auto) (50.0-75.0) % Lymph % (Auto) (20.0-40.0) % [place] % (Auto) (0.0-10.0) % Eos % (Auto) (0.0-4.0) % Baso % (Auto) (0.0-2.0) % Neut # (Auto) (1.8-7.0) K/uL Lymph # (Auto) (1.0-4.3) K/uL [place] # (Auto) (0.0-0.8) K/uL Eos # (Auto) (0.0-0.7) K/uL Baso # (Auto) (0.0-0.2) K/uL Neutrophils % (Manual) (50-75) % Band Neutrophils % (0-2) % Lymphocytes % (Manual) (20-40) % Reactive Lymphs % (0-0) % Monocytes % (Manual) (0-10) % Platelet Estimate (NORMAL) Hypochromasia (manual) Anisocytosis (manual) Microcytosis (manual) Ovalocytes Sodium 135 (132-148) mmol/L Potassium 4.0 (3.6-5.2) mmol/L Chloride 103 (98-107) mmol/L Carbon Dioxide 22 (22-30) mmol/L Anion Gap 15 (10-20) BUN 63 H (9-20) mg/dL Creatinine 5.3 H (0.8-1.5) mg/dL Est GFR ( Amer) 13 Est GFR (Non-Af Amer) 10 POC Glucose (mg/dL) 196 H (65-110) mg/dL Random Glucose 170 H D (75-110) mg/dL Calcium 8.0 L (8.6-10.4) mg/dl Phosphorus 4.2 (2.5-4.5) mg/dL Magnesium 2.1 (1.6-2.3) mg/dL Total Bilirubin 1.1 (0.2-1.3) mg/dL AST 22 (17-59) U/L ALT 22 (21-72) U/L Alkaline Phosphatase 102 (38-126) U/L Total Creatine Kinase (55-170) U/L CK-MB (Mass) (0.0-3.38) ng/mL Troponin I 1.3600 H* 0.5260 H* (0.00-0.120) ng/mL Total Protein 6.0 L (6.3-8.3) g/dL Albumin 3.3 L (3.5-5.0) g/dL Globulin 2.7 (2.2-3.9) gm/dL Albumin/Globulin Ratio 1.2 (1.0-2.1) Urine Color (YELLOW) Urine Clarity (Clear) Urine pH (5.0-8.0) Ur Specific [place] (1.003-1.030) Urine Protein (NEGATIVE) mg/dL Urine Glucose (UA) (Normal) mg/dL Urine Ketones (NEGATIVE) mg/dL Urine Blood (NEGATIVE) Urine Nitrate (NEGATIVE) Urine Bilirubin (NEGATIVE) Urine Urobilinogen (0.2-1.0) mg/dL Ur Leukocyte Esterase (Negative) Fredy/uL Urine WBC (Auto) (0-5) /hpf Urine RBC (Auto) (0-3) /hpf Urine Bacteria (<OCC) Hyaline Casts (0-2) /lpf 06/09/18 06/09/18 06/09/18 Range/Units 16:27 16:25 16:25 WBC 15.0 H (4.8-10.8) K/uL RBC 3.88 L (4.40-5.90) Mil/uL Hgb 8.1 L (12.0-18.0) g/dL Hct 26.4 L (35.0-51.0) % MCV 68.1 L (80.0-94.0) fL MCH 20.9 L (27.0-31.0) pg MCHC 30.6 L (33.0-37.0) g/dL RDW 17.4 H (11.5-14.5) % Plt Count 144 (130-400) K/uL MPV 8.9 (7.2-11.7) fL Neut % (Auto) 89.8 H (50.0-75.0) % Lymph % (Auto) 3.3 L (20.0-40.0) % [place] % (Auto) 6.4 (0.0-10.0) % Eos % (Auto) 0.3 (0.0-4.0) % Baso % (Auto) 0.2 (0.0-2.0) % Neut # (Auto) 13.5 H (1.8-7.0) K/uL Lymph # (Auto) 0.5 L (1.0-4.3) K/uL [place] # (Auto) 1.0 H (0.0-0.8) K/uL Eos # (Auto) 0.0 (0.0-0.7) K/uL Baso # (Auto) 0.0 (0.0-0.2) K/uL Neutrophils % (Manual) 84 H (50-75) % Band Neutrophils % 8 H (0-2) % Lymphocytes % (Manual) 4 L (20-40) % Reactive Lymphs % (0-0) % Monocytes % (Manual) 4 (0-10) % Platelet Estimate Normal (NORMAL) Hypochromasia (manual) Anisocytosis (manual) Microcytosis (manual) Ovalocytes Sodium 135 (132-148) mmol/L Potassium 4.8 (3.6-5.2) mmol/L Chloride 104 (98-107) mmol/L Carbon Dioxide 21 L (22-30) mmol/L Anion Gap 15 (10-20) BUN 54 H (9-20) mg/dL Creatinine 5.0 H (0.8-1.5) mg/dL Est GFR ( Amer) 13 Est GFR (Non-Af Amer) 11 POC Glucose (mg/dL) 264 H (65-110) mg/dL Random Glucose 232 H (75-110) mg/dL Calcium 7.9 L (8.6-10.4) mg/dl Phosphorus 3.1 (2.5-4.5) mg/dL Magnesium 2.0 (1.6-2.3) mg/dL Total Bilirubin 0.9 (0.2-1.3) mg/dL AST 25 (17-59) U/L ALT 19 L (21-72) U/L Alkaline Phosphatase 114 (38-126) U/L Total Creatine Kinase 137 (55-170) U/L CK-MB (Mass) 2.12 (0.0-3.38) ng/mL Troponin I 0.5550 H* (0.00-0.120) ng/mL Total Protein 6.0 L (6.3-8.3) g/dL Albumin 3.5 (3.5-5.0) g/dL Globulin 2.6 (2.2-3.9) gm/dL Albumin/Globulin Ratio 1.4 (1.0-2.1) Urine Color (YELLOW) Urine Clarity (Clear) Urine pH (5.0-8.0) Ur Specific [place] (1.003-1.030) Urine Protein (NEGATIVE) mg/dL Urine Glucose (UA) (Normal) mg/dL Urine Ketones (NEGATIVE) mg/dL Urine Blood (NEGATIVE) Urine Nitrate (NEGATIVE) Urine Bilirubin (NEGATIVE) Urine Urobilinogen (0.2-1.0) mg/dL Ur Leukocyte Esterase (Negative) Fredy/uL Urine WBC (Auto) (0-5) /hpf Urine RBC (Auto) (0-3) /hpf Urine Bacteria (<OCC) Hyaline Casts (0-2) /lpf 06/09/18 Range/Units 15:14 WBC (4.8-10.8) K/uL RBC (4.40-5.90) Mil/uL Hgb (12.0-18.0) g/dL Hct (35.0-51.0) % MCV (80.0-94.0) fL MCH (27.0-31.0) pg MCHC (33.0-37.0) g/dL RDW (11.5-14.5) % Plt Count (130-400) K/uL MPV (7.2-11.7) fL Neut % (Auto) (50.0-75.0) % Lymph % (Auto) (20.0-40.0) % [place] % (Auto) (0.0-10.0) % Eos % (Auto) (0.0-4.0) % Baso % (Auto) (0.0-2.0) % Neut # (Auto) (1.8-7.0) K/uL Lymph # (Auto) (1.0-4.3) K/uL [place] # (Auto) (0.0-0.8) K/uL Eos # (Auto) (0.0-0.7) K/uL Baso # (Auto) (0.0-0.2) K/uL Neutrophils % (Manual) (50-75) % Band Neutrophils % (0-2) % Lymphocytes % (Manual) (20-40) % Reactive Lymphs % (0-0) % Monocytes % (Manual) (0-10) % Platelet Estimate (NORMAL) Hypochromasia (manual) Anisocytosis (manual) Microcytosis (manual) Ovalocytes Sodium (132-148) mmol/L Potassium (3.6-5.2) mmol/L Chloride (98-107) mmol/L Carbon Dioxide (22-30) mmol/L Anion Gap (10-20) BUN (9-20) mg/dL Creatinine (0.8-1.5) mg/dL Est GFR ( Amer) Est GFR (Non-Af Amer) POC Glucose (mg/dL) (65-110) mg/dL Random Glucose (75-110) mg/dL Calcium (8.6-10.4) mg/dl Phosphorus (2.5-4.5) mg/dL Magnesium (1.6-2.3) mg/dL Total Bilirubin (0.2-1.3) mg/dL AST (17-59) U/L ALT (21-72) U/L Alkaline Phosphatase (38-126) U/L Total Creatine Kinase (55-170) U/L CK-MB (Mass) (0.0-3.38) ng/mL Troponin I (0.00-0.120) ng/mL Total Protein (6.3-8.3) g/dL Albumin (3.5-5.0) g/dL Globulin (2.2-3.9) gm/dL Albumin/Globulin Ratio (1.0-2.1) Urine Color Straw (YELLOW) Urine Clarity Clear (Clear) Urine pH 5.0 (5.0-8.0) Ur Specific [place] 1.006 (1.003-1.030) Urine Protein 2+ H (NEGATIVE) mg/dL Urine Glucose (UA) Normal (Normal) mg/dL Urine Ketones Negative (NEGATIVE) mg/dL Urine Blood 1+ H (NEGATIVE) Urine Nitrate Negative (NEGATIVE) Urine Bilirubin Negative (NEGATIVE) Urine Urobilinogen Normal (0.2-1.0) mg/dL Ur Leukocyte Esterase Neg (Negative) Fredy/uL Urine WBC (Auto) 2 (0-5) /hpf Urine RBC (Auto) 4 H (0-3) /hpf Urine Bacteria Rare (<OCC) Hyaline Casts 0-2 (0-2) /lpf Laboratory Results - last 24 hr 06/09/18 06/09/18 06/09/18 15:14 16:25 16:25 WBC 15.0 H RBC 3.88 L Hgb 8.1 L Hct 26.4 L MCV 68.1 L MCH 20.9 L MCHC 30.6 L RDW 17.4 H Plt Count 144 MPV 8.9 Neut % (Auto) 89.8 H Lymph % (Auto) 3.3 L [place] % (Auto) 6.4 Eos % (Auto) 0.3 Baso % (Auto) 0.2 Neut # (Auto) 13.5 H Lymph # (Auto) 0.5 L [place] # (Auto) 1.0 H Eos # (Auto) 0.0 Baso # (Auto) 0.0 Neutrophils % (Manual) 84 H Band Neutrophils % 8 H Lymphocytes % (Manual) 4 L Reactive Lymphs % Monocytes % (Manual) 4 Platelet Estimate Normal Hypochromasia (manual) Anisocytosis (manual) Microcytosis (manual) Ovalocytes Sodium 135 Potassium 4.8 Chloride 104 Carbon Dioxide 21 L Anion Gap 15 BUN 54 H Creatinine 5.0 H Est GFR ( Amer) 13 Est GFR (Non-Af Amer) 11 POC Glucose (mg/dL) Random Glucose 232 H Calcium 7.9 L Phosphorus 3.1 Magnesium 2.0 Total Bilirubin 0.9 AST 25 ALT 19 L Alkaline Phosphatase 114 Total Creatine Kinase 137 CK-MB (Mass) 2.12 Troponin I 0.5550 H* Total Protein 6.0 L Albumin 3.5 Globulin 2.6 Albumin/Globulin Ratio 1.4 Urine Color Straw Urine Clarity Clear Urine pH 5.0 Ur Specific [place] 1.006 Urine Protein 2+ H Urine Glucose (UA) Normal Urine Ketones Negative Urine Blood 1+ H Urine Nitrate Negative Urine Bilirubin Negative Urine Urobilinogen Normal Ur Leukocyte Esterase Neg Urine WBC (Auto) 2 Urine RBC (Auto) 4 H Urine Bacteria Rare Hyaline Casts 0-2 06/09/18 06/09/18 06/09/18 16:27 20:49 23:29 WBC RBC Hgb Hct MCV MCH MCHC RDW Plt Count MPV Neut % (Auto) Lymph % (Auto) [place] % (Auto) Eos % (Auto) Baso % (Auto) Neut # (Auto) Lymph # (Auto) [place] # (Auto) Eos # (Auto) Baso # (Auto) Neutrophils % (Manual) Band Neutrophils % Lymphocytes % (Manual) Reactive Lymphs % Monocytes % (Manual) Platelet Estimate Hypochromasia (manual) Anisocytosis (manual) Microcytosis (manual) Ovalocytes Sodium Potassium Chloride Carbon Dioxide Anion Gap BUN Creatinine Est GFR ( Amer) Est GFR (Non-Af Amer) POC Glucose (mg/dL) 264 H 196 H Random Glucose Calcium Phosphorus Magnesium Total Bilirubin AST ALT Alkaline Phosphatase Total Creatine Kinase CK-MB (Mass) Troponin I 0.5260 H* Total Protein Albumin Globulin Albumin/Globulin Ratio Urine Color Urine Clarity Urine pH Ur Specific [place] Urine Protein Urine Glucose (UA) Urine Ketones Urine Blood Urine Nitrate Urine Bilirubin Urine Urobilinogen Ur Leukocyte Esterase Urine WBC (Auto) Urine RBC (Auto) Urine Bacteria Hyaline Casts 06/10/18 06/10/18 06/10/18 06:09 06:11 07:14 WBC 19.7 H RBC 3.75 L Hgb 7.9 L Hct 25.2 L MCV 67.1 L MCH 21.1 L MCHC 31.5 L RDW 16.9 H Plt Count 122 L D MPV 9.8 Neut % (Auto) 77.8 H Lymph % (Auto) 7.4 L [place] % (Auto) 14.5 H Eos % (Auto) 0.0 Baso % (Auto) 0.3 Neut # (Auto) 15.3 H Lymph # (Auto) 1.5 [place] # (Auto) 2.9 H Eos # (Auto) 0.0 Baso # (Auto) 0.1 Neutrophils % (Manual) 68 Band Neutrophils % 7 H Lymphocytes % (Manual) 6 L Reactive Lymphs % 1 H Monocytes % (Manual) 18 H Platelet Estimate Slightly decreased L Hypochromasia (manual) Moderate Anisocytosis (manual) Slight Microcytosis (manual) Slight Ovalocytes Slight Sodium 135 Potassium 4.0 Chloride 103 Carbon Dioxide 22 Anion Gap 15 BUN 63 H Creatinine 5.3 H Est GFR ( Amer) 13 Est GFR (Non-Af Amer) 10 POC Glucose (mg/dL) 174 H Random Glucose 170 H D Calcium 8.0 L Phosphorus 4.2 Magnesium 2.1 Total Bilirubin 1.1 AST 22 ALT 22 Alkaline Phosphatase 102 Total Creatine Kinase CK-MB (Mass) Troponin I 1.3600 H* Total Protein 6.0 L Albumin 3.3 L Globulin 2.7 Albumin/Globulin Ratio 1.2 Urine Color Urine Clarity Urine pH Ur Specific [place] Urine Protein Urine Glucose (UA) Urine Ketones Urine Blood Urine Nitrate Urine Bilirubin Urine Urobilinogen Ur Leukocyte Esterase Urine WBC (Auto) Urine RBC (Auto) Urine Bacteria Hyaline Casts 06/10/18 11:52 WBC RBC Hgb Hct MCV MCH MCHC RDW Plt Count MPV Neut % (Auto) Lymph % (Auto) [place] % (Auto) Eos % (Auto) Baso % (Auto) Neut # (Auto) Lymph # (Auto) [place] # (Auto) Eos # (Auto) Baso # (Auto) Neutrophils % (Manual) Band Neutrophils % Lymphocytes % (Manual) Reactive Lymphs % Monocytes % (Manual) Platelet Estimate Hypochromasia (manual) Anisocytosis (manual) Microcytosis (manual) Ovalocytes Sodium Potassium Chloride Carbon Dioxide Anion Gap BUN Creatinine Est GFR ( Amer) Est GFR (Non-Af Amer) POC Glucose (mg/dL) 246 H Random Glucose Calcium Phosphorus Magnesium Total Bilirubin AST ALT Alkaline Phosphatase Total Creatine Kinase CK-MB (Mass) Troponin I Total Protein Albumin Globulin Albumin/Globulin Ratio Urine Color Urine Clarity Urine pH Ur Specific [place] Urine Protein Urine Glucose (UA) Urine Ketones Urine Blood Urine Nitrate Urine Bilirubin Urine Urobilinogen Ur Leukocyte Esterase Urine WBC (Auto) Urine RBC (Auto) Urine Bacteria Hyaline Casts Radiology Impressions: Radiology Impressions Chest X-Ray 06/09/18 11:00 IMPRESSION: Interval moderate pulmonary vascular congestion. Underlying airspace disease not excluded bilateral hilar regions, right greater than left. Abdomen/Pelvis CT 06/10/18 09:16 IMPRESSION: Examination limited by motion as well as lack of oral and IV contrast. Small bibasilar infiltrates/edema. Small bilateral pleural effusions and associated consolidations. Nonobstructive bowel containing left inguinal hernia. Nodular hypertrophy left adrenal gland. Ramsay catheter within a decompressed thick-walled urinary bladder. Air within the urinary bladder presumably due to recent instrumentation. Additional findings as above. Fingerstick Blood Sugar Results: 246 Review of Systems - Constitutional Constitutional: absent: Fever, Chills, Sweats - EENT Eyes: UNREMARKABLE. absent: Blurred Vision Ears: UNREMARKABLE Nose/Mouth/Throat: UNREMARKABLE - Cardiovascular Cardiovascular: UNREMARKABLE. absent: Chest Pain, Chest Pain at Rest - Respiratory Respiratory: Cough, UNREMARKABLE. absent: Dyspnea - Gastrointestinal Gastrointestinal: absent: Abdominal Pain, Diarrhea, UNREMARKABLE - Genitourinary Genitourinary: absent: Dysuria - Musculoskeletal Musculoskeletal: UNREMARKABLE - Integumentary Integumentary: absent: Bleeding Lesions - Neurological Neurological: UNREMARKABLE. absent: Headaches - Psychiatric Psychiatric: UNREMARKABLE - Endocrine Endocrine: UNREMARKABLE - Hematologic/Lymphatic Hematologic: UNREMARKABLE Critical Care Progress Note - Extremities/Vascular Does the Patient have a Central Venous Catheter?: No Does the Patient need a Ramsay Catheter?: Yes Catheter Insertion Criteria: Need for accurate measurement of output in critically ill patient - Prophylaxis GI Prophylaxis GI: PPI - Prophylaxis DVT Prophylaxis DVT: Heparin SQ - Nutrition Nutrition: Nutrition Category Date Time Status Heart Healthy Diet [DIET] Diets 06/09/18 Breakfast Active Assessment/Plan - Assessment and Plan (Free Text) Assessment: 83 M w/ PMHx of SBO, renal insufficiency, HF transferred to ICU for SOB/ pulmonary edema Plan: Neuro: - A&O x 3 Cardiac: - elevated trops; likely due to pulmonary congestion - EKG: sinus w/ 1st degree block - Echo: EF 55-60%, normal systolic fxn, trace aortic reguirgiation, moderate mitral regurgitation, severe pulmonary HTN - Hx of HTN, increase norvasc to 10 mg PO daily, hydralizine 10 mg PO TID, HCTZ 25 mg PO daily, Lasix 40 mg IV BID, metoprolol 50 mg PO BID - aspirin 81 mg po daily - nitrodrip - crestor 10 mg daily Pulm - CXR 06/10: no infiltrate observed, improved pulmonary congestion from 06/09; will await official read GI - admitted for SBO, NGT removed 06/09, denies N/V - CT abd/pelv (06/10): Small bibasilar infiltrates/edema. Small bilateral pleural effusions and associated consolidations. 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 Small bilateral pleura l effusions and associated consolidations. - 1 X Vanc - start Zosyn 2.25 gm Q6H PPx - Protonix 20 for GI ppx - DVT ppx: SCDs, Heparin contraindicated as patient is active
--- NOTE | 2018-06-10 13:44 | RAD ---
Date of service: 06/10/2018 HISTORY: shortness of breath COMPARISON: Chest radiograph dated 06/09/2018. FINDINGS: LUNGS: Improved aeration. Pulmonary vascular congestion. No focal consolidation. PLEURA: Eventration of the right hemidiaphragm. No significant pleural effusion identified, no pneumothorax apparent. CARDIOVASCULAR: Aortic atherosclerotic calcifications. Cardiomediastinal silhouette stably enlarged. OSSEOUS STRUCTURES: Unchanged. VISUALIZED UPPER ABDOMEN: Normal. OTHER FINDINGS: None. IMPRESSION: Improved aeration. Pulmonary vascular congestion. No focal consolidation or pleural effusion.
[2018-06-10] MEDS ORDERED: Vancomycin 1 gm/NS 200 ml 1 GM/200 ML BAG IVPB ONE (14:00)
[2018-06-10] MEDS: Piperacill/Tazo 2.25gm in Dex 2.25 GM/50 ML BAG IVPB SCH ×2 (15:03→19:45)
[2018-06-10] MEDS: (Novolog) Insulin Aspart, Recombinant 100 u/ml 10 ml vial SC SCH ×2 (16:56→21:27)
[2018-06-10] MEDS: Insulin Detemir 100 units/ml Vial (Levemir) SC SCH (17:59)
--- NOTE | 2018-06-10 18:07 | CP.PCM.PN ---
Subjective - Date & Time of Evaluation Date of Evaluation: 06/10/18 Time of Evaluation: 18:07 - Subjective Subjective: pt is seen and examined, follow up consult is dictated #[id number] Objective - Vital Signs/Intake and Output Vital Signs (last 24 hours): Temp Pulse Resp BP Pulse Ox 98.4 F 65 15 114/43 L 100 06/10/18 16:00 06/10/18 17:01 06/10/18 17:01 06/10/18 17:59 06/10/18 17:01 Intake and Output: 06/10/18 06/10/18 06:59 18:59 Intake Total 36 1054 Output Total 810 670 Balance -774 384 - Medications Medications: Current Medications Amlodipine Besylate (Norvasc) 10 mg PO DAILY [facility] Last Admin: 06/10/18 10:05 Dose: 10 mg Aspirin (Ecotrin) 81 mg PO DAILY [facility] Last Admin: 06/10/18 10:00 Dose: 81 mg Epoetin Manny (Procrit) 10,000 unit SC MWF [facility] Last Admin: 06/10/18 10:01 Dose: 10,000 unit Furosemide (Lasix) 40 mg IVP BID [facility] Last Admin: 06/10/18 17:59 Dose: 40 mg Heparin Sodium (Porcine) (Heparin) 5,000 units SC Q8 [facility] Last Admin: 06/10/18 15:27 Dose: Not Given Hydralazine HCl (Apresoline) 10 mg PO TID [facility] Last Admin: 06/10/18 17:54 Dose: Not Given Hydrochlorothiazide (Hydrodiuril) 25 mg PO DAILY [facility] Last Admin: 06/10/18 10:03 Dose: 25 mg Nitroglycerin/Dextrose (Nitroglycerin 50 Mg/250 Ml D5w) 50 mg in 250 mls @ 1.5 mls/hr IV .Q24H [facility]N; Protocol Last Titration: 06/10/18 13:01 Dose: 0 mcg/min, 0 mls/hr Piperacillin Sod/Tazobactam Sod (Zosyn 2.25 Gm Iv Premix) 2.25 gm in 50 mls @ 100 mls/hr IVPB Q6H [facility]; Protocol Last Admin: 06/10/18 15:03 Dose: 100 mls/hr Insulin Aspart (Novolog) 0 unit SC ACHS [facility]; Protocol Last Admin: 06/10/18 16:56 Dose: 3 u Insulin Detemir (Levemir) 10 unit SC DAILY [facility] Last Admin: 06/10/18 17:59 Dose: 10 u Losartan Potassium (Cozaar) 100 mg PO DAILY [facility] Last Admin: 06/10/18 09:59 Dose: 100 mg Metoprolol Tartrate (Lopressor) 50 mg PO BID [facility] Last Admin: 06/10/18 10:00 Dose: 50 mg Multivitamins (Hexavitamin) 1 tab PO DAILY [facility] Last Admin: 06/10/18 10:00 Dose: 1 tab Pantoprazole Sodium (Protonix Inj) 20 mg IVP DAILY [facility] Last Admin: 06/10/18 10:01 Dose: 20 mg Rosuvastatin Calcium (Crestor) 10 mg PO HS [facility] Last Admin: 06/09/18 23:10 Dose: 10 mg - Labs Labs: 06/10/18 06:11 06/10/18 06:09 PT 11.9 SECONDS (9.7-12.2) 06/06/18 03:46 INR 1.1 06/06/18 03:46 APTT 38 SECONDS (21-34) H 06/06/18 03:46
[2018-06-11] MEDS: Piperacill/Tazo 2.25gm in Dex 2.25 GM/50 ML BAG IVPB SCH ×4 (00:36→20:56)
--- NOTE | 2018-06-11 03:25 | PN ---
DATE: 06/10/2018 FOLLOWUP RENAL CONSULTATION LOCATION: The patient is located in ICU, 3. REQUESTED BY: Ana Noel MD HISTORY OF PRESENT ILLNESS: Mr. Irving is an 83-year-old elderly Citizen Of [place] male with a past medical history significant for longstanding hypertension, diabetes, coronary artery disease, status post stent placement, chronic kidney disease stage IV, anemia, alpha thalassemia, proteinuria who was admitted with chief complaints of abdominal distention and pain and found to have a small bowel obstruction, status post NG tube placement and low Gumco suction, and the patient symptoms improved after 24 hours and started on clear liquids, and the patient went into flash pulmonary edema yesterday, requiring transfer to ICU and placed on BiPAP machine, and also IV nitroglycerin drip and IV Lasix was given. The patient is feeling much better, resting comfortably, not in distress. PHYSICAL EXAMINATION: VITAL SIGNS: As follows: Blood pressure 115/48, pulse 67, respirations about 17, saturation 100%, and temperature is 98.8. T-max early this morning was 102. Height 5 feet 4 inches, weight is 139 pounds. GENERAL: Mr. Irving is an 83-year-old elderly Citizen [place] male, moderately built, moderately nourished, not in acute distress. HEENT: Pupils normal and reactive to light and accommodation. Conjunctivae pale. Sclerae anicteric. Tongue is moist. Trachea is midline. LUNGS: Symmetric on both sides. Bilateral breath sounds present. Occasional basal crackles present. CARDIOVASCULAR SYSTEM: [place] at the fifth intercostal space, midclavicular line. S1, S2 audible. No murmur or gallop. ABDOMEN: Normal in appearance, soft, tympanitic. No guarding. No rigidity. No hepatosplenomegaly. CENTRAL NERVOUS SYSTEM: The patient is alert, awake, oriented x3. Nonfocal neuro examination. Cranial nerves II through XII grossly intact. Sensory and motor system is within normal limits. EXTREMITIES: No cyanosis, no clubbing, no edema. LABORATORY DATA: Include as follows: As of 06/10/2018, WBC 19.7, hemoglobin 7.9, hematocrit is 25.2, platelets 122, neutrophils 68, bands 7, lymphs 6, monos 18. Sodium 135, potassium is 4, chloride 103, CO2 of 22, BUN 63, creatinine 5.3, glucose 170, calcium is 8, phosphorus 4.2, magnesium 2.1. Total bili 1.1, AST 22, ALT 22, alkaline phosphatase 102. Troponin levels 0.55, 0.52, and 1.36. Blood cultures as of 06/07/2018 negative day 2, and urine culture was negative as of 06/07/2018, and a repeat urine culture as of 06/09/2018 no growth and blood culture x1 identified as a gram-negative rods. Other reports, chest x-ray as of 06/10/2018, improved aeration, pulmonary vascular congestion. No focal consolidation or pleural effusion. CT of the abdomen and pelvis as of 06/10/2018, impression, examination limited by motion as well as lack of oral and IV contrast, small bibasilar infiltrates and edema, small bilateral pleural effusions and associated consolidation. Nonobstructive bowel containing left inguinal hernia, nodular hypertrophy of left adrenal gland. A Ramsay catheter with a decompressive thick-walled within the urinary bladder, presumably due to recent instrumentation. IMPRESSION: In summary, Mr. Irving is an 83-year-old elderly Citizen Of [place] male with a history of hypertension, diabetes, chronic kidney disease, anemia, proteinuria who was admitted with abdominal pain and distention and found to have a small bowel obstruction and status post NG tube placement and attaching low Gumco suction, and improved his symptoms after 24 hours, and subsequently, the patient was on clear liquids, and the patient went into flash pulmonary edema yesterday morning, and requiring transfer to intensive care unit, and also placed on BiLevel positive airway pressure and intravenous nitroglycerin and intravenous Lasix. The patient spiked to 102 last night, and his blood culture now is positive for gram-negative rods x1. 1. Acute on chronic kidney disease, IV to V. 2. Anemia secondary to chronic kidney disease and cannot rule out secondary to thalassemia alpha in view of persistent microcytic anemia with normal liver function test and normal iron studies. 3. Hypertension. 4. Diabetes. 5. Non-ST elevation myocardial infarction, most likely stress induced secondary to flash pulmonary edema. Follow up with Cardiology, and continue gentle diuresis, and the patient's family is thinking still about dialysis. We will continue monitor and continue IV antibiotics, and we will follow with you. Thank you for allowing me to participate in your patient's care. Discussed with the patient's at bedside this evening. Aamir Galeano MD
[2018-06-11 05:34] LABS: ALBUMIN (PEP) 3.1 g/dL (3.8-4.8); ALPHA-1-GLOBULIN (PEP) 0.4 g/dL (0.2-0.3)
--- NOTE | 2018-06-11 06:10 | CP.PCM.PN ---
Subjective - Date & Time of Evaluation Date of Evaluation: 06/10/18 Time of Evaluation: 15:00 - Subjective Subjective: Patient seen and evaluated Transferred to ICU for flash pulmonary edema On BiPAP last night Now with NC feels better Physical Exam - Constitutional Appears: Non-toxic, No Acute Distress - ENT Exam ENT Exam: Mucous Membranes Moist - Respiratory Exam Respiratory Exam: Clear to Auscultation Bilateral, NORMAL BREATHING PATTERN - Cardiovascular Exam Cardiovascular Exam: REGULAR RHYTHM, +S1, +S2 - GI/Abdominal Exam GI & Abdominal Exam: Distended, Soft, Tenderness. absent: Firm, Guarding, Rebound, Rigid Additional comments: full, tender, distended NGT in place with bilious output Ex lap scar noted - Extremities Exam Extremities exam: Negative for: pedal edema, tenderness - Neurological Exam Neurological exam: Alert, Oriented x3 - Psychiatric Exam Psychiatric exam: Normal Affect, Normal Mood - Skin Skin Exam: Dry, Intact, Normal Color, Warm Assessment & Plan - Assessment and Plan (Free Text) Assessment: SBO improving 1. CAD s/p RCA stent 05/2016. No interval cardiac symptoms 2. Normal EF 3. HTN 4. CKD 5. ACS 6. Fevere/Sepsis? 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 EF 55% Avoid fluid overload Lasix IV as needed Naomy needs HD soon Consider Heparin drip for 1-2 days No plavix for now Objective - Vital Signs/Intake and Output Vital Signs (last 24 hours): Temp Pulse Resp BP Pulse Ox 98.2 F 63 12 135/46 L 100 06/11/18 04:00 06/11/18 04:01 06/11/18 04:01 06/11/18 04:01 06/11/18 04:01 Intake and Output: 06/10/18 06/11/18 18:59 06:59 Intake Total 1054 330 Output Total 700 640 Balance 354 -310 - Medications Medications: Current Medications Amlodipine Besylate (Norvasc) 10 mg PO DAILY [facility] Last Admin: 06/10/18 10:05 Dose: 10 mg Aspirin (Ecotrin) 81 mg PO DAILY [facility] Last Admin: 06/10/18 10:00 Dose: 81 mg Epoetin Manny (Procrit) 10,000 unit SC MWF [facility] Last Admin: 06/10/18 10:01 Dose: 10,000 unit Furosemide (Lasix) 40 mg IVP BID [facility] Last Admin: 06/10/18 17:59 Dose: 40 mg Heparin Sodium (Porcine) (Heparin) 5,000 units SC Q8 [facility] Last Admin: 06/10/18 22:10 Dose: 5,000 units Hydralazine HCl (Apresoline) 10 mg PO TID [facility] Last Admin: 06/10/18 17:54 Dose: Not Given Hydrochlorothiazide (Hydrodiuril) 25 mg PO DAILY [facility] Last Admin: 06/10/18 10:03 Dose: 25 mg Nitroglycerin/Dextrose (Nitroglycerin 50 Mg/250 Ml D5w) 50 mg in 250 mls @ 1.5 mls/hr IV .Q24H [facility]; Protocol Last Titration: 06/10/18 13:01 Dose: 0 mcg/min, 0 mls/hr Piperacillin Sod/Tazobactam Sod (Zosyn 2.25 Gm Iv Premix) 2.25 gm in 50 mls @ 100 mls/hr IVPB Q6H [facility]; Protocol Last Admin: 06/11/18 00:36 Dose: 100 mls/hr Insulin Aspart (Novolog) 0 unit SC ACHS [facility]; Protocol Last Admin: 06/10/18 21:27 Dose: Not Given Insulin Detemir (Levemir) 10 unit SC DAILY [facility] Last Admin: 06/10/18 17:59 Dose: 10 u Losartan Potassium (Cozaar) 100 mg PO DAILY [facility] Last Admin: 06/10/18 09:59 Dose: 100 mg Metoprolol Tartrate (Lopressor) 50 mg PO BID [facility] Last Admin: 06/10/18 18:51 Dose: Not Given Multivitamins (Hexavitamin) 1 tab PO DAILY [facility] Last Admin: 06/10/18 10:00 Dose: 1 tab Pantoprazole Sodium (Protonix Inj) 20 mg IVP DAILY [facility] Last Admin: 06/10/18 10:01 Dose: 20 mg Rosuvastatin Calcium (Crestor) 10 mg PO HS [facility] Last Admin: 06/10/18 22:10 Dose: 10 mg - Labs Labs: 06/10/18 06:11 06/10/18 06:09 PT 11.9 SECONDS (9.7-12.2) 06/06/18 03:46 INR 1.1 06/06/18 03:46 APTT 38 SECONDS (21-34) H 06/06/18 03:46
[2018-06-11 06:20] LABS: BASO # 0.1 K/uL (0.0-0.2); BASO % 0.3 % (0.0-2.0); EOS # 0.1 K/uL (0.0-0.7); EOS % 0.6 % (0.0-4.0); HEMOGLOBIN 7.4 g/dL (12.0-18.0); LYMPH # 1.8 K/uL (1.0-4.3); LYMPH % 10.2 % (20.0-40.0); MEAN CELL VOLUME 65.8 fL (80.0-94.0); MEAN CORPUSCULAR HEMOGLOBIN 21.3 pg (27.0-31.0); MEAN CORPUSCULAR HGB CONC 32.4 g/dL (33.0-37.0); MEAN PLATELET VOLUME 9.7 fL (7.2-11.7); MONO # 1.9 K/uL (0.0-0.8); NEUT # 13.4 K/uL (1.8-7.0); NEUT % 77.9 % (50.0-75.0); RBC 3.45 Mil/uL (4.40-5.90); RED CELL DISTRIBUTION WIDTH 16.5 % (11.5-14.5); WHITE BLOOD COUNT 17.2 K/uL (4.8-10.8)
[2018-06-11 06:39] LABS: ALB/GLOB RATIO 1.2 (1.0-2.1); ALBUMIN 3.2 g/dL (3.5-5.0); CALCIUM 7.4 mg/dl (8.6-10.4)
[2018-06-11] MEDS: (Novolog) Insulin Aspart, Recombinant 100 u/ml 10 ml vial SC SCH ×4 (07:30→21:55)
--- NOTE | 2018-06-11 08:21 | CP.PCM.PN ---
Subjective - Date & Time of Evaluation Date of Evaluation: 06/11/18 Time of Evaluation: 07:30 - Subjective Subjective: General Surgery Dr. Seymour Pt seen and examined @bedside. No acute events overnight. denies CP, SBO, abd pain, F/C, N/V. (+)BM/Flatus. tolerating diet. Objective - Vital Signs/Intake and Output Vital Signs (last 24 hours): Temp Pulse Resp BP Pulse Ox 98.2 F 67 14 134/49 L 100 06/11/18 04:00 06/11/18 07:00 06/11/18 07:00 06/11/18 06:55 06/11/18 07:00 Intake and Output: 06/11/18 06/11/18 06:59 18:59 Intake Total 380 Output Total 640 Balance -260 - Medications Medications: Current Medications Amlodipine Besylate (Norvasc) 10 mg PO DAILY [facility] Last Admin: 06/10/18 10:05 Dose: 10 mg Aspirin (Ecotrin) 81 mg PO DAILY [facility] Last Admin: 06/10/18 10:00 Dose: 81 mg Epoetin Manny (Procrit) 10,000 unit SC MWF [facility] Last Admin: 06/10/18 10:01 Dose: 10,000 unit Furosemide (Lasix) 40 mg IVP BID [facility] Last Admin: 06/10/18 17:59 Dose: 40 mg Heparin Sodium (Porcine) (Heparin) 5,000 units SC Q8 [facility] Last Admin: 06/11/18 06:55 Dose: 5,000 units Hydralazine HCl (Apresoline) 10 mg PO TID [facility] Last Admin: 06/10/18 17:54 Dose: Not Given Hydrochlorothiazide (Hydrodiuril) 25 mg PO DAILY [facility] Last Admin: 06/10/18 10:03 Dose: 25 mg Nitroglycerin/Dextrose (Nitroglycerin 50 Mg/250 Ml D5w) 50 mg in 250 mls @ 1.5 mls/hr IV .Q24H [facility]; Protocol Last Titration: 06/10/18 13:01 Dose: 0 mcg/min, 0 mls/hr Piperacillin Sod/Tazobactam Sod (Zosyn 2.25 Gm Iv Premix) 2.25 gm in 50 mls @ 100 mls/hr IVPB Q6H [facility]; Protocol Last Admin: 06/11/18 00:36 Dose: 100 mls/hr Insulin Aspart (Novolog) 0 unit SC ACHS [facility]; Protocol Last Admin: 06/10/18 21:27 Dose: Not Given Insulin Detemir (Levemir) 10 unit SC DAILY [facility] Last Admin: 06/10/18 17:59 Dose: 10 u Losartan Potassium (Cozaar) 100 mg PO DAILY [facility] Last Admin: 06/10/18 09:59 Dose: 100 mg Metoprolol Tartrate (Lopressor) 50 mg PO BID [facility] Last Admin: 06/10/18 18:51 Dose: Not Given Multivitamins (Hexavitamin) 1 tab PO DAILY [facility] Last Admin: 06/10/18 10:00 Dose: 1 tab Pantoprazole Sodium (Protonix Inj) 20 mg IVP DAILY [facility] Last Admin: 06/10/18 10:01 Dose: 20 mg Rosuvastatin Calcium (Crestor) 10 mg PO HS [facility] Last Admin: 06/10/18 22:10 Dose: 10 mg - Labs Labs: 06/11/18 06:10 06/11/18 06:10 PT 11.9 SECONDS (9.7-12.2) 06/06/18 03:46 INR 1.1 06/06/18 03:46 APTT 38 SECONDS (21-34) H 06/06/18 03:46 - Constitutional Appears: Non-toxic, No Acute Distress - Eye Exam Eye Exam: Normal appearance - ENT Exam ENT Exam: Mucous Membranes Moist - Respiratory Exam Respiratory Exam: absent: Accessory Muscle Use, Respiratory Distress, NORMAL BREATHING PATTERN - Cardiovascular Exam Cardiovascular Exam: Irregular Rhythm. absent: Bradycardia, Tachycardia - GI/Abdominal Exam GI & Abdominal Exam: Soft. absent: Distended, Firm, Guarding, Tenderness - Extremities Exam Extremities Exam: Normal Inspection - Neurological Exam Neurological Exam: Alert, Awake, Oriented x3 - Psychiatric Exam Psychiatric exam: Normal Affect, Normal Mood - Skin Skin Exam: Dry, Intact, Normal Color, Warm Assessment and Plan - Assessment and Plan (Free Text) Assessment: 83 y/o M w/ resolved SBO Plan: - advance diet as tolerated - monitor bowel fxn - cont medical management for resolved Pulm edema - no surgical intervention at this time. - Pt cleared for discharge from surgical stand point Pt discussed w/ Dr. Lion Puckett DO PGY3
--- NOTE | 2018-06-11 09:18 | CP.PCM.PN ---
Subjective - Date & Time of Evaluation Date of Evaluation: 06/11/18 Time of Evaluation: 10:40 - Subjective Subjective: chart review vitals BP stable Temp-afebrile chills noted yesterday lab -cultur- positive juani on antibiotic Patient seen was eating -no abdominal pain- has passed gas no BM aware of Renal plan of dialysis currently no complaints Discussion with ICU- for dialysis today Objective - Vital Signs/Intake and Output Vital Signs (last 24 hours): Temp Pulse Resp BP Pulse Ox 98.2 F 67 14 134/49 L 100 06/11/18 04:00 06/11/18 07:00 06/11/18 07:00 06/11/18 06:55 06/11/18 07:00 Intake and Output: 06/11/18 06/11/18 06:59 18:59 Intake Total 380 Output Total 640 Balance -260 - Medications Medications: Current Medications Amlodipine Besylate (Norvasc) 10 mg PO DAILY [facility] Last Admin: 06/10/18 10:05 Dose: 10 mg Aspirin (Ecotrin) 81 mg PO DAILY [facility] Last Admin: 06/10/18 10:00 Dose: 81 mg Epoetin Manny (Procrit) 10,000 unit SC MWF [facility] Last Admin: 06/10/18 10:01 Dose: 10,000 unit Furosemide (Lasix) 40 mg IVP BID [facility] Last Admin: 06/10/18 17:59 Dose: 40 mg Heparin Sodium (Porcine) (Heparin) 5,000 units SC Q8 [facility] Last Admin: 06/11/18 06:55 Dose: 5,000 units Hydralazine HCl (Apresoline) 10 mg PO TID [facility] Last Admin: 06/10/18 17:54 Dose: Not Given Hydrochlorothiazide (Hydrodiuril) 25 mg PO DAILY [facility] Last Admin: 06/10/18 10:03 Dose: 25 mg Nitroglycerin/Dextrose (Nitroglycerin 50 Mg/250 Ml D5w) 50 mg in 250 mls @ 1.5 mls/hr IV .Q24H [facility]; Protocol Last Titration: 06/10/18 13:01 Dose: 0 mcg/min, 0 mls/hr Piperacillin Sod/Tazobactam Sod (Zosyn 2.25 Gm Iv Premix) 2.25 gm in 50 mls @ 100 mls/hr IVPB Q6H [facility]; Protocol Last Admin: 06/11/18 08:30 Dose: 100 mls/hr Insulin Aspart (Novolog) 0 unit SC ACHS [facility]; Protocol Last Admin: 06/11/18 07:30 Dose: Not Given Insulin Detemir (Levemir) 10 unit SC DAILY [facility] Last Admin: 06/10/18 17:59 Dose: 10 u Losartan Potassium (Cozaar) 100 mg PO DAILY [facility] Last Admin: 06/10/18 09:59 Dose: 100 mg Metoprolol Tartrate (Lopressor) 50 mg PO BID [facility] Last Admin: 06/10/18 18:51 Dose: Not Given Multivitamins (Hexavitamin) 1 tab PO DAILY [facility] Last Admin: 06/10/18 10:00 Dose: 1 tab Pantoprazole Sodium (Protonix Inj) 20 mg IVP DAILY [facility] Last Admin: 06/10/18 10:01 Dose: 20 mg Rosuvastatin Calcium (Crestor) 10 mg PO HS [facility] Last Admin: 06/10/18 22:10 Dose: 10 mg - Labs Labs: 06/11/18 06:10 06/11/18 06:10 PT 11.9 SECONDS (9.7-12.2) 06/06/18 03:46 INR 1.1 06/06/18 03:46 APTT 38 SECONDS (21-34) H 06/06/18 03:46 - Constitutional Appears: No Acute Distress - Head Exam Head Exam: ATRAUMATIC, NORMOCEPHALIC - Eye Exam Eye Exam: Normal appearance. absent: Nystagmus - ENT Exam ENT Exam: Mucous Membranes Moist - Neck Exam Neck Exam: Full ROM. absent: Tenderness - Respiratory Exam Respiratory Exam: Clear to Ausculation Bilateral, NORMAL BREATHING PATTERN ( ) - Cardiovascular Exam Cardiovascular Exam: Irregular Rhythm - GI/Abdominal Exam GI & Abdominal Exam: Soft, Normal Bowel Sounds. absent: Tenderness - Extremities Exam Extremities Exam: Full ROM. absent: Pedal Edema - Back Exam Back Exam: Full ROM - Neurological Exam Neurological Exam: Alert, Awake, Normal Gait, Oriented x3 - Psychiatric Exam Psychiatric exam: Normal Affect, Normal Mood - Skin Skin Exam: Intact, Normal Color Assessment and Plan (1) Renal insufficiency Assessment & Plan: worsening- for HD as per alma; Status: Acute (2) Hypertension associated with chronic kidney disease due to type 2 diabetes mellitus Assessment & Plan: BP control and renal intervention Status: Acute (3) Coronary arteriosclerosis Assessment & Plan: no chest pain,stable Status: Chronic (4) Small bowel obstruction Assessment & Plan: resolved- feeding no abdominal pain, has flatus no bowel antonieta[=vement- further observation Status: Acute (5) Anemia Assessment & Plan: with ANNIE, post transfusion on procrit ferlicit, further monitoring Status: Acute (6) Diabetes mellitus Assessment & Plan: is now feeding- with Insulin resumed, monitoring and adjust accordingly Status: Acute (7) Fever of unknown origin (FUO) Assessment & Plan: on antibiotic, Status: Acute (8) CHF (congestive heart failure) Assessment & Plan: Diastolic, acute over chronic- ,post repid response, ICU, lasix, currently respiratory better , Status: Acute
[2018-06-11] MEDS: Multiple Vitamins Tab PO SCH ×2 (10:00→12:37)
[2018-06-11 10:52] LABS: BASO % 0.3 % (0.0-2.0); EOS # 0.2 K/uL (0.0-0.7); HEMOGLOBIN 7.6 g/dL (12.0-18.0); LYMPH # 1.5 K/uL (1.0-4.3); LYMPH % 9.1 % (20.0-40.0); MEAN CELL VOLUME 65.7 fL (80.0-94.0); MEAN CORPUSCULAR HEMOGLOBIN 20.9 pg (27.0-31.0); MEAN CORPUSCULAR HGB CONC 31.8 g/dL (33.0-37.0); MEAN PLATELET VOLUME 9.2 fL (7.2-11.7); MONO # 1.5 K/uL (0.0-0.8); NEUT # 13.6 K/uL (1.8-7.0); NEUT % 80.6 % (50.0-75.0); NRBC % 0.1 % (0.0-2.0); PLATELET COUNT 89 K/uL (130-400); RBC 3.65 Mil/uL (4.40-5.90); RED CELL DISTRIBUTION WIDTH 17.5 % (11.5-14.5); WHITE BLOOD COUNT 16.9 K/uL (4.8-10.8)
[2018-06-11 10:59] LABS: INR 1.1; PROTHROMBIN TIME 12.5 SECONDS (9.7-12.2)
[2018-06-11 11:12] LABS: ALB/GLOB RATIO 1.2 (1.0-2.1); ALBUMIN 3.2 g/dL (3.5-5.0); CALCIUM 7.6 mg/dl (8.6-10.4)
--- NOTE | 2018-06-11 11:31 | CP.PCM.PN ---
Subjective - Date & Time of Evaluation Date of Evaluation: 06/11/18 Time of Evaluation: 11:30 - Subjective Subjective: pt is seen and examined, follow up consult is dictated # pt will benefit from hemodialysis if pt and his family agrees , please obtain vascular surgery consult for perma cath and av fistula avoid iv line and blood draw from left ue Objective - Vital Signs/Intake and Output Vital Signs (last 24 hours): Temp Pulse Resp BP Pulse Ox 98.2 F 70 14 139/58 L 100 06/11/18 08:00 06/11/18 10:00 06/11/18 10:00 06/11/18 09:55 06/11/18 10:00 Intake and Output: 06/11/18 06/11/18 06:59 18:59 Intake Total 380 440 Output Total 640 450 Balance -260 -10 - Medications Medications: Current Medications Amlodipine Besylate (Norvasc) 10 mg PO DAILY [facility] Last Admin: 06/10/18 10:05 Dose: 10 mg Aspirin (Ecotrin) 81 mg PO DAILY [facility] Last Admin: 06/10/18 10:00 Dose: 81 mg Epoetin Manny (Procrit) 10,000 unit SC MWF [facility] Last Admin: 06/10/18 10:01 Dose: 10,000 unit Furosemide (Lasix) 40 mg IVP BID [facility] Last Admin: 06/10/18 17:59 Dose: 40 mg Heparin Sodium (Porcine) (Heparin) 5,000 units SC Q8 [facility] Last Admin: 06/11/18 06:55 Dose: 5,000 units Hydralazine HCl (Apresoline) 10 mg PO TID [facility] Last Admin: 06/10/18 17:54 Dose: Not Given Hydrochlorothiazide (Hydrodiuril) 25 mg PO DAILY [facility] Last Admin: 06/10/18 10:03 Dose: 25 mg Nitroglycerin/Dextrose (Nitroglycerin 50 Mg/250 Ml D5w) 50 mg in 250 mls @ 1.5 mls/hr IV .Q24H [facility]; Protocol Last Titration: 06/10/18 13:01 Dose: 0 mcg/min, 0 mls/hr Piperacillin Sod/Tazobactam Sod (Zosyn 2.25 Gm Iv Premix) 2.25 gm in 50 mls @ 100 mls/hr IVPB Q6H [facility]; Protocol Last Admin: 06/11/18 08:30 Dose: 100 mls/hr Insulin Aspart (Novolog) 0 unit SC ACHS [facility]; Protocol Last Admin: 06/11/18 07:30 Dose: Not Given Insulin Detemir (Levemir) 10 unit SC DAILY [facility] Last Admin: 06/10/18 17:59 Dose: 10 u Losartan Potassium (Cozaar) 100 mg PO DAILY [facility] Last Admin: 06/10/18 09:59 Dose: 100 mg Metoprolol Tartrate (Lopressor) 50 mg PO BID [facility] Last Admin: 06/10/18 18:51 Dose: Not Given Multivitamins (Hexavitamin) 1 tab PO DAILY [facility] Last Admin: 06/10/18 10:00 Dose: 1 tab Pantoprazole Sodium (Protonix Ec Tab) 20 mg PO DAILY [facility] Rosuvastatin Calcium (Crestor) 10 mg PO HS [facility] Last Admin: 06/10/18 22:10 Dose: 10 mg - Labs Labs: 06/11/18 10:48 06/11/18 10:48 PT 12.5 SECONDS (9.7-12.2) H 06/11/18 10:48 INR 1.1 06/11/18 10:48 APTT 57 SECONDS (21-34) H 06/11/18 10:48
[2018-06-11 11:38] LABS: BANDS 2 % (0-2); EOSINOPHIL 1 % (0-4); LYMPHOCYTE 7 % (20-40); MONOCYTE 5 % (0-10); NEUTROPHIL 85 % (50-75); PLATELET ESTIMATE DECREASED (NORMAL); TOTAL CELLS COUNTED 100
[2018-06-11 11:39] LABS: ANISOCYTOSIS SLIGHT; HYPOCHROMIC MODERATE; MICROCYTOSIS MODERATE; OVALOCYTES MODERATE
--- NOTE | 2018-06-11 11:42 | PQF ---
PROVIDER RESPONSE TEXT: Acute on chronic diastolic CHF, Patient transferred to [facility], presented pulmonary Edema, on Lasix REVIEWER QUERY TEXT: CHF Acuity and Type Congestive Heart Failure is documented in the Medical Record. Please document the type and acuity (in cludes probable or suspected) Such as: Type: The patient's Clinical Indicators include: "83-year-old male With a history of renal insufficiency diabetes hypertension CAD now admitted with a cute pulmonary edema systolic likely heart failure underlying diastolic heart failure cannot be ruled out". ECHO: The LV systolic function is normal. The Ejection Fraction is 55-60%. There is trace aortic regurgitation. Mitral regurgitation is moderate with eccentric jet. There is mild tricuspid regurgitation. There is severe pulmonary hypertension. There is mild pulmonic valvular regurgitation. "[employer] called for patient feeling very short of breath. Initial BP 237/91.Patient denied chest pain. Patient was found to have acute pulmonary edema with pink frothy sputum with severe shortness of rae th and accessory muscle use. Lasix 20mg ivp given. Nitro drip ordered. Another Lasix 20mg ivp given and 2mg morphine iv. Patient placed on BiPAP and transferred immediately to ICU". Please consider verify clinical findings possible matching with acute on chronic diastolic CHF, and d ocument it, if agree. Query created by: Jin Simpson on 06/10/2018 10:44 AM Electronically signed by: Ana Noel MD 06/11/2018 11:40 AM
--- NOTE | 2018-06-11 12:42 | CP.CCUPN ---
<Primo Mclain M - Last Filed: 06/11/18 15:24> CCU Subjective - Physician Review Subjective (Free Text): Critical care progress note for Dr. Alicia. Patient seen and examined at bedside. No overnight events. Patient last fever yesterday 06/10 @ 100.8 F @ 12PM. Patient states he has no SOB, producing urine, bowel movements. Patient has no active complaints. Patient denies headaches, vision changes, nausea, vomiting, f/c, chest pain. CCU Objective - Vital Signs / Intake & Output Vital Signs (Last 4 hours): Vital Signs Pulse Resp BP Pulse Ox 06/11/18 10:00 70 14 100 06/11/18 09:55 71 10 L 139/58 L 100 06/11/18 09:00 70 14 98 06/11/18 08:55 69 13 142/47 L 100 Intake and Output (Last 8hrs): Intake & Output 06/10/18 06/11/18 06/11/18 22:59 06:59 14:59 Intake Total 300 330 440 Output Total 240 550 450 Balance 60 -220 -10 Intake: Intake, IV Amount 300 50 Right Antecubital 300 50 Oral 0 280 440 Output: Urine 240 550 450 Urethral (Ramsay) 240 550 Urine, Voided 450 - Physical Exam Head: Positive for: Atraumatic, Normocephalic Pupils: Positive for: PERRL Conjunctiva: Positive for: Normal Mouth: Positive for: Moist Mucous Membranes Neck: Positive for: Normal Range of Motion Respiratory/Chest: Positive for: Good Air Exchange, Rales (R > L ). Negative for: Accessory Muscle Use Cardiovascular: Positive for: Normal S1, S2 Abdomen: Positive for: Normal Bowel Sounds. Negative for: Tenderness, Distention Lower Extremity: Positive for: Normal Inspection. Negative for: Edema, Cyanosis Neurological: Positive for: GCS=15, Speech Normal Skin: Positive for: Warm, Normal Color Psychiatric: Positive for: Oriented x 3 - Medications Active Medications: Active Medications Generic Name Dose Route Start Last Admin Trade Name Freq PRN Reason Stop Dose Admin Amlodipine Besylate 10 mg 06/10/18 10:00 06/11/18 12:39 Norvasc PO 10 mg DAILY PATTI Administration Aspirin 81 mg 06/06/18 10:00 06/10/18 10:00 Ecotrin PO 81 mg DAILY PATTI Administration Epoetin Manny 10,000 unit 06/10/18 09:00 06/10/18 10:01 Procrit SC 10,000 unit MWF [facility] Administration Furosemide 40 mg 06/09/18 20:00 06/10/18 17:59 Lasix IVP 40 mg BID PATTI Administration Heparin Sodium (Porcine) 5,000 units 06/10/18 16:00 06/11/18 06:55 Heparin SC 5,000 units Q8 PATTI Administration Hydralazine HCl 10 mg 06/10/18 10:00 06/10/18 17:54 Apresoline PO Not Given TID PATTI Hydrochlorothiazide 25 mg 06/08/18 10:00 06/11/18 10:00 Hydrodiuril PO 25 mg DAILY [facility] Administration Nitroglycerin/Dextrose 50 mg in 250 mls @ 1.5 mls/hr 06/09/18 11:30 06/10/18 13:01 Nitroglycerin 50 Mg/250 Ml D5w IV 0 mcg/min .Q24H PRN 0 mls/hr Titration Protocol 5 MCG/MIN Piperacillin Sod/Tazobactam Sod 2.25 gm in 50 mls @ 100 mls/hr 06/10/18 13:30 06/11/18 08:30 Zosyn 2.25 Gm Iv Premix IVPB 100 mls/hr Q6H [facility] Administration Protocol Insulin Aspart 0 unit 06/10/18 16:30 06/11/18 07:30 Novolog SC Not Given ACHS [facility] Protocol Insulin Detemir 10 unit 06/10/18 17:45 06/10/18 17:59 Levemir SC 10 u DAILY [facility] Administration Losartan Potassium 100 mg 06/07/18 10:00 06/11/18 12:39 Cozaar PO 100 mg DAILY [facility] Administration Metoprolol Tartrate 50 mg 06/07/18 10:00 06/11/18 10:50 Lopressor PO 50 mg BID PATTI Administration Multivitamins 1 tab 06/07/18 10:00 06/11/18 12:37 Hexavitamin PO 1 tab DAILY [facility] Administration Pantoprazole Sodium 20 mg 06/12/18 10:00 Protonix Ec Tab PO DAILY [facility] Rosuvastatin Calcium 10 mg 06/06/18 22:00 06/10/18 22:10 Crestor PO 10 mg HS [facility] Administration - Patient Studies Lab Studies: Microbiology Studies 06/10/18 10:36 Blood Culture - Preliminary Blood Gram Negative Carlos Gram Stain - Final 06/07/18 21:49 Blood Culture - Preliminary Blood-Venous NO GROWTH AFTER 3 DAYS 06/07/18 21:49 Blood Culture - Preliminary Blood-Venous NO GROWTH AFTER 3 DAYS 06/09/18 13:20 MRSA Culture (Admit) - Final Nose MRSA NOT DETECTED 06/09/18 15:14 Urine Culture - Final Urine,Ramsay No Growth (<1,000 CFU/ML) Lab Studies 06/11/18 06/11/18 06/11/18 Range/Units 10:48 10:48 10:48 WBC 16.9 H (4.8-10.8) K/uL RBC 3.65 L (4.40-5.90) Mil/uL Hgb 7.6 L (12.0-18.0) g/dL Hct 24.0 L (35.0-51.0) % MCV 65.7 L (80.0-94.0) fL MCH 20.9 L (27.0-31.0) pg MCHC 31.8 L (33.0-37.0) g/dL RDW 17.5 H (11.5-14.5) % Plt Count 89 L (130-400) K/uL MPV 9.2 (7.2-11.7) fL Neut % (Auto) 80.6 H (50.0-75.0) % Lymph % (Auto) 9.1 L (20.0-40.0) % [place] % (Auto) 9.0 (0.0-10.0) % Eos % (Auto) 1.0 (0.0-4.0) % Baso % (Auto) 0.3 (0.0-2.0) % Neut # (Auto) 13.6 H (1.8-7.0) K/uL Lymph # (Auto) 1.5 (1.0-4.3) K/uL [place] # (Auto) 1.5 H (0.0-0.8) K/uL Eos # (Auto) 0.2 (0.0-0.7) K/uL Baso # (Auto) 0.0 (0.0-0.2) K/uL Neutrophils % (Manual) 85 H (50-75) % Band Neutrophils % 2 (0-2) % Lymphocytes % (Manual) 7 L (20-40) % Monocytes % (Manual) 5 (0-10) % Eosinophils % (Manual) 1 (0-4) % Platelet Estimate Decreased L (NORMAL) Hypochromasia (manual) Moderate Anisocytosis (manual) Slight Microcytosis (manual) Moderate Ovalocytes Moderate PT 12.5 H (9.7-12.2) SECONDS INR 1.1 APTT 57 H (21-34) SECONDS Sodium 134 (132-148) mmol/L Potassium 3.3 L (3.6-5.2) mmol/L Chloride 99 (98-107) mmol/L Carbon Dioxide 21 L (22-30) mmol/L Anion Gap 17 (10-20) BUN 82 H (9-20) mg/dL Creatinine 6.1 H (0.8-1.5) mg/dL Est GFR ( Amer) 11 Est GFR (Non-Af Amer) 9 POC Glucose (mg/dL) (65-110) mg/dL Random Glucose 197 H D (75-110) mg/dL Calcium 7.6 L (8.6-10.4) mg/dl Phosphorus (2.5-4.5) mg/dL Magnesium (1.6-2.3) mg/dL Total Bilirubin 1.1 (0.2-1.3) mg/dL AST 25 (17-59) U/L ALT 28 (21-72) U/L Alkaline Phosphatase 105 (38-126) U/L Total Protein 6.0 L (6.3-8.3) g/dL Albumin 3.2 L (3.5-5.0) g/dL Albumin (PEP) (3.8-4.8) g/dL Globulin 2.8 (2.2-3.9) gm/dL Albumin/Globulin Ratio 1.2 (1.0-2.1) Dxizm-9-Ouwmcxyqd (0.2-0.3) g/dL Bjtcg-9-Nwtdcujph (0.5-0.9) g/dL Dgau-6-Ukengoyf (0.4-0.6) g/dL Iwtw-6-Oxslhayb (0.2-0.5) g/dL Gamma Globulins (0.8-1.7) g/dL Abnorm Protein Band 1 Abnorm Protein Band 2 Abnorm Protein Band 3 PTH Intact Whole Molec (14-64) pg/mL CAROLINE & SPEP Interp DARY Screen (Negative) 06/11/18 06/11/18 06/11/18 Range/Units 07:24 06:10 06:10 WBC 17.2 H (4.8-10.8) K/uL RBC 3.45 L (4.40-5.90) Mil/uL Hgb 7.4 L (12.0-18.0) g/dL Hct 22.7 L (35.0-51.0) % MCV 65.8 L (80.0-94.0) fL MCH 21.3 L (27.0-31.0) pg MCHC 32.4 L (33.0-37.0) g/dL RDW 16.5 H (11.5-14.5) % Plt Count 84 L D (130-400) K/uL MPV 9.7 (7.2-11.7) fL Neut % (Auto) 77.9 H (50.0-75.0) % Lymph % (Auto) 10.2 L (20.0-40.0) % [place] % (Auto) 11.0 H (0.0-10.0) % Eos % (Auto) 0.6 (0.0-4.0) % Baso % (Auto) 0.3 (0.0-2.0) % Neut # (Auto) 13.4 H (1.8-7.0) K/uL Lymph # (Auto) 1.8 (1.0-4.3) K/uL [place] # (Auto) 1.9 H (0.0-0.8) K/uL Eos # (Auto) 0.1 (0.0-0.7) K/uL Baso # (Auto) 0.1 (0.0-0.2) K/uL Neutrophils % (Manual) (50-75) % Band Neutrophils % (0-2) % Lymphocytes % (Manual) (20-40) % Monocytes % (Manual) (0-10) % Eosinophils % (Manual) (0-4) % Platelet Estimate (NORMAL) Hypochromasia (manual) Anisocytosis (manual) Microcytosis (manual) Ovalocytes PT (9.7-12.2) SECONDS INR APTT (21-34) SECONDS Sodium 135 (132-148) mmol/L Potassium 3.5 L (3.6-5.2) mmol/L Chloride 102 (98-107) mmol/L Carbon Dioxide 22 (22-30) mmol/L Anion Gap 15 (10-20) BUN 80 H (9-20) mg/dL Creatinine 5.9 H (0.8-1.5) mg/dL Est GFR ( Amer) 11 Est GFR (Non-Af Amer) 9 POC Glucose (mg/dL) 105 (65-110) mg/dL Random Glucose 103 D (75-110) mg/dL Calcium 7.4 L (8.6-10.4) mg/dl Phosphorus 4.6 H (2.5-4.5) mg/dL Magnesium 2.3 (1.6-2.3) mg/dL Total Bilirubin 1.2 (0.2-1.3) mg/dL AST 32 (17-59) U/L ALT 30 (21-72) U/L Alkaline Phosphatase 97 (38-126) U/L Total Protein 5.9 L (6.3-8.3) g/dL Albumin 3.2 L (3.5-5.0) g/dL Albumin (PEP) (3.8-4.8) g/dL Globulin 2.7 (2.2-3.9) gm/dL Albumin/Globulin Ratio 1.2 (1.0-2.1) Gumwj-1-Fwtbrwgrj (0.2-0.3) g/dL Vdpmg-5-Diukvjdsk (0.5-0.9) g/dL Dxav-0-Ipknjhul (0.4-0.6) g/dL Nxjn-2-Sngkgyef (0.2-0.5) g/dL Gamma Globulins (0.8-1.7) g/dL Abnorm Protein Band 1 Abnorm Protein Band 2 Abnorm Protein Band 3 PTH Intact Whole Molec (14-64) pg/mL CAROLINE & SPEP Interp DARY Screen (Negative) 06/10/18 06/10/18 06/08/18 Range/Units 21:00 16:31 11:00 WBC (4.8-10.8) K/uL RBC (4.40-5.90) Mil/uL Hgb (12.0-18.0) g/dL Hct (35.0-51.0) % MCV (80.0-94.0) fL MCH (27.0-31.0) pg MCHC (33.0-37.0) g/dL RDW (11.5-14.5) % Plt Count (130-400) K/uL MPV (7.2-11.7) fL Neut % (Auto) (50.0-75.0) % Lymph % (Auto) (20.0-40.0) % [place] % (Auto) (0.0-10.0) % Eos % (Auto) (0.0-4.0) % Baso % (Auto) (0.0-2.0) % Neut # (Auto) (1.8-7.0) K/uL Lymph # (Auto) (1.0-4.3) K/uL [place] # (Auto) (0.0-0.8) K/uL Eos # (Auto) (0.0-0.7) K/uL Baso # (Auto) (0.0-0.2) K/uL Neutrophils % (Manual) (50-75) % Band Neutrophils % (0-2) % Lymphocytes % (Manual) (20-40) % Monocytes % (Manual) (0-10) % Eosinophils % (Manual) (0-4) % Platelet Estimate (NORMAL) Hypochromasia (manual) Anisocytosis (manual) Microcytosis (manual) Ovalocytes PT (9.7-12.2) SECONDS INR APTT (21-34) SECONDS Sodium (132-148) mmol/L Potassium (3.6-5.2) mmol/L Chloride (98-107) mmol/L Carbon Dioxide (22-30) mmol/L Anion Gap (10-20) BUN (9-20) mg/dL Creatinine (0.8-1.5) mg/dL Est GFR ( Amer) Est GFR (Non-Af Amer) POC Glucose (mg/dL) 215 H 272 H (65-110) mg/dL Random Glucose (75-110) mg/dL Calcium (8.6-10.4) mg/dl Phosphorus (2.5-4.5) mg/dL Magnesium (1.6-2.3) mg/dL Total Bilirubin (0.2-1.3) mg/dL AST (17-59) U/L ALT (21-72) U/L Alkaline Phosphatase (38-126) U/L Total Protein (6.3-8.3) g/dL Albumin (3.5-5.0) g/dL Albumin (PEP) 3.1 L (3.8-4.8) g/dL Globulin (2.2-3.9) gm/dL Albumin/Globulin Ratio (1.0-2.1) Igjmw-7-Yifwmgyty 0.4 H (0.2-0.3) g/dL Xjlfc-1-Qdmwcgnui 0.8 (0.5-0.9) g/dL Zann-2-Ygjccysc 0.3 L (0.4-0.6) g/dL Twsp-5-Vhuvzxvl 0.3 (0.2-0.5) g/dL Gamma Globulins 0.8 (0.8-1.7) g/dL Abnorm Protein Band 1 TEST NOT PERFORMED Abnorm Protein Band 2 TEST NOT PERFORMED Abnorm Protein Band 3 TEST NOT PERFORMED PTH Intact Whole Molec (14-64) pg/mL CAROLINE & SPEP Interp See note DARY Screen Negative (Negative) 06/08/18 Range/Units 11:00 WBC (4.8-10.8) K/uL RBC (4.40-5.90) Mil/uL Hgb (12.0-18.0) g/dL Hct (35.0-51.0) % MCV (80.0-94.0) fL MCH (27.0-31.0) pg MCHC (33.0-37.0) g/dL RDW (11.5-14.5) % Plt Count (130-400) K/uL MPV (7.2-11.7) fL Neut % (Auto) (50.0-75.0) % Lymph % (Auto) (20.0-40.0) % [place] % (Auto) (0.0-10.0) % Eos % (Auto) (0.0-4.0) % Baso % (Auto) (0.0-2.0) % Neut # (Auto) (1.8-7.0) K/uL Lymph # (Auto) (1.0-4.3) K/uL [place] # (Auto) (0.0-0.8) K/uL Eos # (Auto) (0.0-0.7) K/uL Baso # (Auto) (0.0-0.2) K/uL Neutrophils % (Manual) (50-75) % Band Neutrophils % (0-2) % Lymphocytes % (Manual) (20-40) % Monocytes % (Manual) (0-10) % Eosinophils % (Manual) (0-4) % Platelet Estimate (NORMAL) Hypochromasia (manual) Anisocytosis (manual) Microcytosis (manual) Ovalocytes PT (9.7-12.2) SECONDS INR APTT (21-34) SECONDS Sodium (132-148) mmol/L Potassium (3.6-5.2) mmol/L Chloride (98-107) mmol/L Carbon Dioxide (22-30) mmol/L Anion Gap (10-20) BUN (9-20) mg/dL Creatinine (0.8-1.5) mg/dL Est GFR ( Amer) Est GFR (Non-Af Amer) POC Glucose (mg/dL) (65-110) mg/dL Random Glucose (75-110) mg/dL Calcium (8.6-10.4) mg/dl Phosphorus (2.5-4.5) mg/dL Magnesium (1.6-2.3) mg/dL Total Bilirubin (0.2-1.3) mg/dL AST (17-59) U/L ALT (21-72) U/L Alkaline Phosphatase (38-126) U/L Total Protein (6.3-8.3) g/dL Albumin (3.5-5.0) g/dL Albumin (PEP) (3.8-4.8) g/dL Globulin (2.2-3.9) gm/dL Albumin/Globulin Ratio (1.0-2.1) Mmbie-6-Jklgwyado (0.2-0.3) g/dL Jtcxi-0-Altdtflub (0.5-0.9) g/dL Pahf-9-Nmeiupiv (0.4-0.6) g/dL Xggu-2-Tjjafmhi (0.2-0.5) g/dL Gamma Globulins (0.8-1.7) g/dL Abnorm Protein Band 1 Abnorm Protein Band 2 Abnorm Protein Band 3 PTH Intact Whole Molec 135 H (14-64) pg/mL CAROLINE & SPEP Interp DARY Screen (Negative) Laboratory Results - last 24 hr 06/08/18 06/08/18 06/10/18 11:00 11:00 16:31 WBC RBC Hgb Hct MCV MCH MCHC RDW Plt Count MPV Neut % (Auto) Lymph % (Auto) [place] % (Auto) Eos % (Auto) Baso % (Auto) Neut # (Auto) Lymph # (Auto) [place] # (Auto) Eos # (Auto) Baso # (Auto) Neutrophils % (Manual) Band Neutrophils % Lymphocytes % (Manual) Monocytes % (Manual) Eosinophils % (Manual) Platelet Estimate Hypochromasia (manual) Anisocytosis (manual) Microcytosis (manual) Ovalocytes PT INR APTT Sodium Potassium Chloride Carbon Dioxide Anion Gap BUN Creatinine Est GFR ( Amer) Est GFR (Non-Af Amer) POC Glucose (mg/dL) 272 H Random Glucose Calcium Phosphorus Magnesium Total Bilirubin AST ALT Alkaline Phosphatase Total Protein Albumin Albumin (PEP) 3.1 L Globulin Albumin/Globulin Ratio [place]-7-Bjqfqwwdt 0.4 H Iiewb-9-Hohraarwf 0.8 Fgeg-9-Xcrjwqqh 0.3 L Zfby-9-Loovxbqx 0.3 Gamma Globulins 0.8 Abnorm Protein Band 1 TEST NOT PERFORMED Abnorm Protein Band 2 TEST NOT PERFORMED Abnorm Protein Band 3 TEST NOT PERFORMED PTH Intact Whole Molec 135 H CAROLINE & SPEP Interp See note DARY Screen Negative 06/10/18 06/11/18 06/11/18 21:00 06:10 06:10 WBC 17.2 H RBC 3.45 L Hgb 7.4 L Hct 22.7 L MCV 65.8 L MCH 21.3 L MCHC 32.4 L RDW 16.5 H Plt Count 84 L D MPV 9.7 Neut % (Auto) 77.9 H Lymph % (Auto) 10.2 L [place] % (Auto) 11.0 H Eos % (Auto) 0.6 Baso % (Auto) 0.3 Neut # (Auto) 13.4 H Lymph # (Auto) 1.8 [place] # (Auto) 1.9 H Eos # (Auto) 0.1 Baso # (Auto) 0.1 Neutrophils % (Manual) Band Neutrophils % Lymphocytes % (Manual) Monocytes % (Manual) Eosinophils % (Manual) Platelet Estimate Hypochromasia (manual) Anisocytosis (manual) Microcytosis (manual) Ovalocytes PT INR APTT Sodium 135 Potassium 3.5 L Chloride 102 Carbon Dioxide 22 Anion Gap 15 BUN 80 H Creatinine 5.9 H Est GFR ( Amer) 11 Est GFR (Non-Af Amer) 9 POC Glucose (mg/dL) 215 H Random Glucose 103 D Calcium 7.4 L Phosphorus 4.6 H Magnesium 2.3 Total Bilirubin 1.2 AST 32 ALT 30 Alkaline Phosphatase 97 Total Protein 5.9 L Albumin 3.2 L Albumin (PEP) Globulin 2.7 Albumin/Globulin Ratio 1.2 Heeum-4-Aaapnidff Uxqym-9-Wcdmgiami Deyk-6-Lhbjsxtn Nedl-3-Gcqslmyb Gamma Globulins Abnorm Protein Band 1 Abnorm Protein Band 2 Abnorm Protein Band 3 PTH Intact Whole Molec CAROLINE & SPEP Interp DARY Screen 06/11/18 06/11/18 06/11/18 07:24 10:48 10:48 WBC 16.9 H RBC 3.65 L Hgb 7.6 L Hct 24.0 L MCV 65.7 L MCH 20.9 L MCHC 31.8 L RDW 17.5 H Plt Count 89 L MPV 9.2 Neut % (Auto) 80.6 H Lymph % (Auto) 9.1 L [place] % (Auto) 9.0 Eos % (Auto) 1.0 Baso % (Auto) 0.3 Neut # (Auto) 13.6 H Lymph # (Auto) 1.5 [place] # (Auto) 1.5 H Eos # (Auto) 0.2 Baso # (Auto) 0.0 Neutrophils % (Manual) 85 H Band Neutrophils % 2 Lymphocytes % (Manual) 7 L Monocytes % (Manual) 5 Eosinophils % (Manual) 1 Platelet Estimate Decreased L Hypochromasia (manual) Moderate Anisocytosis (manual) Slight Microcytosis (manual) Moderate Ovalocytes Moderate PT 12.5 H INR 1.1 APTT 57 H Sodium Potassium Chloride Carbon Dioxide Anion Gap BUN Creatinine Est GFR ( Amer) Est GFR (Non-Af Amer) POC Glucose (mg/dL) 105 Random Glucose Calcium Phosphorus Magnesium Total Bilirubin AST ALT Alkaline Phosphatase Total Protein Albumin Albumin (PEP) Globulin Albumin/Globulin Ratio [place]-7-Hrapiomph Mtbgb-3-Kvrvqixnm Idea-8-Fzdmxryd Ompd-6-Gunddkkc Gamma Globulins Abnorm Protein Band 1 Abnorm Protein Band 2 Abnorm Protein Band 3 PTH Intact Whole Molec CAROLINE & SPEP Interp DARY Screen 06/11/18 10:48 WBC RBC Hgb Hct MCV MCH MCHC RDW Plt Count MPV Neut % (Auto) Lymph % (Auto) [place] % (Auto) Eos % (Auto) Baso % (Auto) Neut # (Auto) Lymph # (Auto) [place] # (Auto) Eos # (Auto) Baso # (Auto) Neutrophils % (Manual) Band Neutrophils % Lymphocytes % (Manual) Monocytes % (Manual) Eosinophils % (Manual) Platelet Estimate Hypochromasia (manual) Anisocytosis (manual) Microcytosis (manual) Ovalocytes PT INR APTT Sodium 134 Potassium 3.3 L Chloride 99 Carbon Dioxide 21 L Anion Gap 17 BUN 82 H Creatinine 6.1 H Est GFR ( Amer) 11 Est GFR (Non-Af Amer) 9 POC Glucose (mg/dL) Random Glucose 197 H D Calcium 7.6 L Phosphorus Magnesium Total Bilirubin 1.1 AST 25 ALT 28 Alkaline Phosphatase 105 Total Protein 6.0 L Albumin 3.2 L Albumin (PEP) Globulin 2.8 Albumin/Globulin Ratio 1.2 Cpbmd-9-Nlxfgmdyq Pwyui-8-Fxavcpyzn Wjsp-8-Bwksvlib Thgz-7-Mqvadryv Gamma Globulins Abnorm Protein Band 1 Abnorm Protein Band 2 Abnorm Protein Band 3 PTH Intact Whole Molec CAROLINE & SPEP Interp DARY Screen Radiology Impressions: Radiology Impressions Chest X-Ray 06/10/18 09:10 IMPRESSION: Improved aeration. Pulmonary vascular congestion. No focal consolidation or pleural effusion. Abdomen/Pelvis CT 06/10/18 09:16 IMPRESSION: Examination limited by motion as well as lack of oral and IV contrast. Small bibasilar infiltrates/edema. Small bilateral pleural effusions and associated consolidations. Nonobstructive bowel containing left inguinal hernia. Nodular hypertrophy left adrenal gland. Ramsay catheter within a decompressed thick-walled urinary bladder. Air within the urinary bladder presumably due to recent instrumentation. Additional findings as above. Fingerstick Blood Sugar Results: 145 Review of Systems - Constitutional Constitutional: absent: Fever, Chills, Sweats, Weakness - EENT Eyes: UNREMARKABLE Ears: UNREMARKABLE Nose/Mouth/Throat: UNREMARKABLE - Cardiovascular Cardiovascular: UNREMARKABLE. absent: Dyspnea on Exertion - Respiratory Respiratory: UNREMARKABLE - Gastrointestinal Gastrointestinal: UNREMARKABLE - Genitourinary Genitourinary: UNREMARKABLE - Reproductive: Male Reproductive:Male: UNREMARKABLE - Musculoskeletal Musculoskeletal: UNREMARKABLE - Integumentary Integumentary: UNREMARKABLE - Neurological Neurological: UNREMARKABLE - Psychiatric Psychiatric: UNREMARKABLE - Endocrine Endocrine: UNREMARKABLE - Hematologic/Lymphatic Hematologic: UNREMARKABLE Critical Care Progress Note - Extremities/Vascular Does the Patient have a Central Venous Catheter?: No Does the Patient need a Central Venous Catheter?: No Does the Patient have a Ramsay Catheter?: No Does the Patient need a Ramsay Catheter?: No - Prophylaxis GI Prophylaxis GI: PPI - Prophylaxis DVT Prophylaxis DVT: Heparin SQ - Nutrition Nutrition: Nutrition Category Date Time Status Heart Healthy Diet [DIET] Diets 06/09/18 Breakfast Active Assessment/Plan - Assessment and Plan (Free Text) Assessment: 83 M w/ PMHx of SBO, renal insufficiency, HF transferred to ICU for SOB/ pulmonary edema; platlets downtrending, Cr uptremding, gram negative carlos bacteremia Plan: Neuro: - A&O x 3 Cardiac: - elevated trops; likely due to pulmonary congestion - EKG: sinus w/ 1st degree block - Echo: EF 55-60%, normal systolic fxn, trace aortic reguirgiation, moderate mitral regurgitation, severe pulmonary HTN - Hx of HTN, increase norvasc to 10 mg PO daily, hydralizine 10 mg PO TID, HCTZ 25 mg PO daily, Lasix 40 mg IV BID, metoprolol 50 mg PO BID - aspirin 81 mg po daily - crestor 10 mg daily - possible cardiac cath prior to discharge per cardio Pulm - CXR 06/11: no infiltrate observed, improved pulmonary congestion from 06/09; will await official read GI - admitted for SBO, resolved via NGT; removed 06/09, denies N/V - CT abd/pelv (06/10): Small bibasilar infiltrates/edema. Small bilateral pleural effusions and associated consolidations. 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 Evans vascular for permacath & AVF - vein mapping - possible OR tomorrow, provided patient consent - c/w cozaar 100 mg PO daily, HCTZ 25 mg PO daily Endo - hx of diabetes - ISS Heme - H/H 7.4/22.7 - possibly due to CKD5 - per nephro procrit 10k SC MWF ID - Afebrile for 24H - Blood culture06/10 - gram negative rods - CT abd/pelv (06/10): Small bibasilar infiltrates/edema. Small bilateral pleural effusions and associated consolidations. - 1 X Vanc on 06/10 - start Zosyn 2.25 gm Q6H (06/10) PPx - Protonix 20 for GI ppx - DVT ppx: SCDs, Heparin 5000 units Q8 <Hector Alicia - Last Filed: 06/11/18 17:53> CCU Subjective - Physician Review Critical Care Time Spent (in minutes): 45 CCU Objective - Vital Signs / Intake & Output Vital Signs (Last 4 hours): Vital Signs Pulse Resp BP Pulse Ox 06/11/18 15:00 64 14 100 06/11/18 14:54 62 14 141/53 L 100 06/11/18 14:00 67 14 100 06/11/18 13:55 68 16 139/57 L 100 Intake and Output (Last 8hrs): Intake & Output 06/11/18 06/11/18 06/11/18 06:59 14:59 22:59 Intake Total 330 1260 Output Total 550 1020 0 Balance -220 240 0 Weight 139 lb 9.6 oz Intake: Intake, IV Amount 50 Right Antecubital 50 Oral 280 1260 Output: Urine 550 1020 0 Urethral (Ramsay) 550 Urine, Voided 1020 0 - Medications Active Medications: Active Medications Generic Name Dose Route Start Last Admin Trade Name Freq PRN Reason Stop Dose Admin Amlodipine Besylate 10 mg 06/10/18 10:00 06/11/18 12:39 Norvasc PO 10 mg DAILY PATTI Administration Aspirin 81 mg 06/06/18 10:00 06/11/18 10:00 Ecotrin PO Not Given DAILY PATTI Epoetin Manny 10,000 unit 06/10/18 09:00 06/10/18 10:01 Procrit SC 10,000 unit MWF PATTI Administration Furosemide 40 mg 06/09/18 20:00 06/11/18 11:00 Lasix IVP 40 mg BID PATTI Administration Heparin Sodium (Porcine) 5,000 units 06/10/18 16:00 06/11/18 14:00 Heparin SC 5,000 units Q8 PATTI Administration Hydralazine HCl 10 mg 06/10/18 10:00 06/11/18 15:30 Apresoline PO 10 mg TID PATTI Administration Hydrochlorothiazide 25 mg 06/08/18 10:00 06/11/18 10:00 Hydrodiuril PO 25 mg DAILY PATTI Administration Nitroglycerin/Dextrose 50 mg in 250 mls @ 1.5 mls/hr 06/09/18 11:30 06/10/18 13:01 Nitroglycerin 50 Mg/250 Ml D5w IV 0 mcg/min .Q24H PRN 0 mls/hr Titration Protocol 5 MCG/MIN Piperacillin Sod/Tazobactam Sod 2.25 gm in 50 mls @ 100 mls/hr 06/10/18 13:30 06/11/18 13:00 Zosyn 2.25 Gm Iv Premix IVPB 100 mls/hr Q6H [facility] Administration Protocol Insulin Aspart 0 unit 06/10/18 16:30 06/11/18 17:09 Novolog SC 3 u ACHS [facility] Administration Protocol Insulin Detemir 10 unit 06/10/18 17:45 06/11/18 13:09 Levemir SC Not Given DAILY [facility] Losartan Potassium 100 mg 06/07/18 10:00 06/11/18 12:39 Cozaar PO 100 mg DAILY [facility] Administration Metoprolol Tartrate 50 mg 06/07/18 10:00 06/11/18 10:50 Lopressor PO 50 mg BID [facility] Administration Multivitamins 1 tab 06/07/18 10:00 06/11/18 12:37 Hexavitamin PO 1 tab DAILY [facility] Administration Pantoprazole Sodium 20 mg 06/12/18 10:00 Protonix Ec Tab PO DAILY [facility] Potassium Chloride 40 meq 06/12/18 12:45 K-Dur 20 Meq Er Tab PO 06/12/18 12:46 ONCE ONE Rosuvastatin Calcium 10 mg 06/06/18 22:00 06/10/18 22:10 Crestor PO 10 mg HS [facility] Administration - Patient Studies Lab Studies: Microbiology Studies 06/10/18 10:36 Blood Culture - Preliminary Blood Gram Negative Carlos Gram Stain - Final 06/07/18 21:49 Blood Culture - Preliminary Blood-Venous NO GROWTH AFTER 3 DAYS 06/07/18 21:49 Blood Culture - Preliminary Blood-Venous NO GROWTH AFTER 3 DAYS 06/09/18 13:20 MRSA Culture (Admit) - Final Nose MRSA NOT DETECTED Lab Studies 06/11/18 06/11/18 06/11/18 Range/Units 16:29 11:15 10:48 WBC (4.8-10.8) K/uL RBC (4.40-5.90) Mil/uL Hgb (12.0-18.0) g/dL Hct (35.0-51.0) % MCV (80.0-94.0) fL MCH (27.0-31.0) pg MCHC (33.0-37.0) g/dL RDW (11.5-14.5) % Plt Count (130-400) K/uL MPV (7.2-11.7) fL Neut % (Auto) (50.0-75.0) % Lymph % (Auto) (20.0-40.0) % [place] % (Auto) (0.0-10.0) % Eos % (Auto) (0.0-4.0) % Baso % (Auto) (0.0-2.0) % Neut # (Auto) (1.8-7.0) K/uL Lymph # (Auto) (1.0-4.3) K/uL [place] # (Auto) (0.0-0.8) K/uL Eos # (Auto) (0.0-0.7) K/uL Baso # (Auto) (0.0-0.2) K/uL Neutrophils % (Manual) (50-75) % Band Neutrophils % (0-2) % Lymphocytes % (Manual) (20-40) % Monocytes % (Manual) (0-10) % Eosinophils % (Manual) (0-4) % Platelet Estimate (NORMAL) Hypochromasia (manual) Anisocytosis (manual) Microcytosis (manual) Ovalocytes PT (9.7-12.2) SECONDS INR APTT (21-34) SECONDS Sodium 134 (132-148) mmol/L Potassium 3.3 L (3.6-5.2) mmol/L Chloride 99 (98-107) mmol/L Carbon Dioxide 21 L (22-30) mmol/L Anion Gap 17 (10-20) BUN 82 H (9-20) mg/dL Creatinine 6.1 H (0.8-1.5) mg/dL Est GFR ( Amer) 11 Est GFR (Non-Af Amer) 9 POC Glucose (mg/dL) 278 H 233 H (65-110) mg/dL Random Glucose 197 H D (75-110) mg/dL Calcium 7.6 L (8.6-10.4) mg/dl Phosphorus (2.5-4.5) mg/dL Magnesium (1.6-2.3) mg/dL Total Bilirubin 1.1 (0.2-1.3) mg/dL AST 25 (17-59) U/L ALT 28 (21-72) U/L Alkaline Phosphatase 105 (38-126) U/L Total Protein 6.0 L (6.3-8.3) g/dL Albumin 3.2 L (3.5-5.0) g/dL Albumin (PEP) (3.8-4.8) g/dL Globulin 2.8 (2.2-3.9) gm/dL Albumin/Globulin Ratio 1.2 Qbkkc-9-Yatfiuezp % Gncen-4-Jxwushvgh % Beta Globulins % Jwue-8-Oyyykjoc (0.4-0.6) g/dL Lkof-5-Pzxkwmuc (0.2-0.5) g/dL Gamma Globulins % Abnorm Protein Band 1 Abnorm Protein Band 2 Abnorm Protein Band 3 Urine Albumin (PEP) % Ur Protein Fractions CAROLINE & SPEP Interp 06/11/18 06/11/18 06/11/18 Range/Units 10:48 10:48 07:24 WBC 16.9 H (4.8-10.8) K/uL RBC 3.65 L (4.40-5.90) Mil/uL Hgb 7.6 L (12.0-18.0) g/dL Hct 24.0 L (35.0-51.0) % MCV 65.7 L (80.0-94.0) fL MCH 20.9 L (27.0-31.0) pg MCHC 31.8 L (33.0-37.0) g/dL RDW 17.5 H (11.5-14.5) % Plt Count 89 L (130-400) K/uL MPV 9.2 (7.2-11.7) fL Neut % (Auto) 80.6 H (50.0-75.0) % Lymph % (Auto) 9.1 L (20.0-40.0) % [place] % (Auto) 9.0 (0.0-10.0) % Eos % (Auto) 1.0 (0.0-4.0) % Baso % (Auto) 0.3 (0.0-2.0) % Neut # (Auto) 13.6 H (1.8-7.0) K/uL Lymph # (Auto) 1.5 (1.0-4.3) K/uL [place] # (Auto) 1.5 H (0.0-0.8) K/uL Eos # (Auto) 0.2 (0.0-0.7) K/uL Baso # (Auto) 0.0 (0.0-0.2) K/uL Neutrophils % (Manual) 85 H (50-75) % Band Neutrophils % 2 (0-2) % Lymphocytes % (Manual) 7 L (20-40) % Monocytes % (Manual) 5 (0-10) % Eosinophils % (Manual) 1 (0-4) % Platelet Estimate Decreased L (NORMAL) Hypochromasia (manual) Moderate Anisocytosis (manual) Slight Microcytosis (manual) Moderate Ovalocytes Moderate PT 12.5 H (9.7-12.2) SECONDS INR 1.1 APTT 57 H (21-34) SECONDS Sodium (132-148) mmol/L Potassium (3.6-5.2) mmol/L Chloride (98-107) mmol/L Carbon Dioxide (22-30) mmol/L Anion Gap (10-20) BUN (9-20) mg/dL Creatinine (0.8-1.5) mg/dL Est GFR ( Amer) Est GFR (Non-Af Amer) POC Glucose (mg/dL) 105 (65-110) mg/dL Random Glucose (75-110) mg/dL Calcium (8.6-10.4) mg/dl Phosphorus (2.5-4.5) mg/dL Magnesium (1.6-2.3) mg/dL Total Bilirubin (0.2-1.3) mg/dL AST (17-59) U/L ALT (21-72) U/L Alkaline Phosphatase (38-126) U/L Total Protein (6.3-8.3) g/dL Albumin (3.5-5.0) g/dL Albumin (PEP) (3.8-4.8) g/dL Globulin (2.2-3.9) gm/dL Albumin/Globulin Ratio Eteni-6-Luvrsxwyb % Pjwud-3-Wyorefvkh % Beta Globulins % Wklg-2-Bitcpqqu (0.4-0.6) g/dL Snrc-8-Hlcrgweb (0.2-0.5) g/dL Gamma Globulins % Abnorm Protein Band 1 Abnorm Protein Band 2 Abnorm Protein Band 3 Urine Albumin (PEP) % Ur Protein Fractions CAROLINE & SPEP Interp 06/11/18 06/11/18 06/10/18 Range/Units 06:10 06:10 21:00 WBC 17.2 H (4.8-10.8) K/uL RBC 3.45 L (4.40-5.90) Mil/uL Hgb 7.4 L (12.0-18.0) g/dL Hct 22.7 L (35.0-51.0) % MCV 65.8 L (80.0-94.0) fL MCH 21.3 L (27.0-31.0) pg MCHC 32.4 L (33.0-37.0) g/dL RDW 16.5 H (11.5-14.5) % Plt Count 84 L D (130-400) K/uL MPV 9.7 (7.2-11.7) fL Neut % (Auto) 77.9 H (50.0-75.0) % Lymph % (Auto) 10.2 L (20.0-40.0) % [place] % (Auto) 11.0 H (0.0-10.0) % Eos % (Auto) 0.6 (0.0-4.0) % Baso % (Auto) 0.3 (0.0-2.0) % Neut # (Auto) 13.4 H (1.8-7.0) K/uL Lymph # (Auto) 1.8 (1.0-4.3) K/uL [place] # (Auto) 1.9 H (0.0-0.8) K/uL Eos # (Auto) 0.1 (0.0-0.7) K/uL Baso # (Auto) 0.1 (0.0-0.2) K/uL Neutrophils % (Manual) (50-75) % Band Neutrophils % (0-2) % Lymphocytes % (Manual) (20-40) % Monocytes % (Manual) (0-10) % Eosinophils % (Manual) (0-4) % Platelet Estimate (NORMAL) Hypochromasia (manual) Anisocytosis (manual) Microcytosis (manual) Ovalocytes PT (9.7-12.2) SECONDS INR APTT (21-34) SECONDS Sodium 135 (132-148) mmol/L Potassium 3.5 L (3.6-5.2) mmol/L Chloride 102 (98-107) mmol/L Carbon Dioxide 22 (22-30) mmol/L Anion Gap 15 (10-20) BUN 80 H (9-20) mg/dL Creatinine 5.9 H (0.8-1.5) mg/dL Est GFR ( Amer) 11 Est GFR (Non-Af Amer) 9 POC Glucose (mg/dL) 215 H (65-110) mg/dL Random Glucose 103 D (75-110) mg/dL Calcium 7.4 L (8.6-10.4) mg/dl Phosphorus 4.6 H (2.5-4.5) mg/dL Magnesium 2.3 (1.6-2.3) mg/dL Total Bilirubin 1.2 (0.2-1.3) mg/dL AST 32 (17-59) U/L ALT 30 (21-72) U/L Alkaline Phosphatase 97 (38-126) U/L Total Protein 5.9 L (6.3-8.3) g/dL Albumin 3.2 L (3.5-5.0) g/dL Albumin (PEP) (3.8-4.8) g/dL Globulin 2.7 (2.2-3.9) gm/dL Albumin/Globulin Ratio 1.2 Wgjak-6-Gshdarhbo % Jalfy-5-Yhjjeuoic % Beta Globulins % Odem-6-Igcslxkk (0.4-0.6) g/dL Mkft-2-Sidlojra (0.2-0.5) g/dL Gamma Globulins % Abnorm Protein Band 1 Abnorm Protein Band 2 Abnorm Protein Band 3 Urine Albumin (PEP) % Ur Protein Fractions CAROLINE & SPEP Interp 06/08/18 06/08/18 Range/Units 11:00 09:10 WBC (4.8-10.8) K/uL RBC (4.40-5.90) Mil/uL Hgb (12.0-18.0) g/dL Hct (35.0-51.0) % MCV (80.0-94.0) fL MCH (27.0-31.0) pg MCHC (33.0-37.0) g/dL RDW (11.5-14.5) % Plt Count (130-400) K/uL MPV (7.2-11.7) fL Neut % (Auto) (50.0-75.0) % Lymph % (Auto) (20.0-40.0) % [place] % (Auto) (0.0-10.0) % Eos % (Auto) (0.0-4.0) % Baso % (Auto) (0.0-2.0) % Neut # (Auto) (1.8-7.0) K/uL Lymph # (Auto) (1.0-4.3) K/uL [place] # (Auto) (0.0-0.8) K/uL Eos # (Auto) (0.0-0.7) K/uL Baso # (Auto) (0.0-0.2) K/uL Neutrophils % (Manual) (50-75) % Band Neutrophils % (0-2) % Lymphocytes % (Manual) (20-40) % Monocytes % (Manual) (0-10) % Eosinophils % (Manual) (0-4) % Platelet Estimate (NORMAL) Hypochromasia (manual) Anisocytosis (manual) Microcytosis (manual) Ovalocytes PT (9.7-12.2) SECONDS INR APTT (21-34) SECONDS Sodium (132-148) mmol/L Potassium (3.6-5.2) mmol/L Chloride (98-107) mmol/L Carbon Dioxide (22-30) mmol/L Anion Gap (10-20) BUN (9-20) mg/dL Creatinine (0.8-1.5) mg/dL Est GFR ( Amer) Est GFR (Non-Af Amer) POC Glucose (mg/dL) (65-110) mg/dL Random Glucose (75-110) mg/dL Calcium (8.6-10.4) mg/dl Phosphorus (2.5-4.5) mg/dL Magnesium (1.6-2.3) mg/dL Total Bilirubin (0.2-1.3) mg/dL AST (17-59) U/L ALT (21-72) U/L Alkaline Phosphatase (38-126) U/L Total Protein (6.3-8.3) g/dL Albumin (3.5-5.0) g/dL Albumin (PEP) 3.1 L (3.8-4.8) g/dL Globulin (2.2-3.9) gm/dL Albumin/Globulin Ratio 1.82 Femvf-2-Xvwbhczrd 0.4 H 7.6 % Aaxyy-9-Zfdpgsmee 0.8 5.9 % Beta Globulins 11.2 % Wrii-2-Xorhvnzr 0.3 L (0.4-0.6) g/dL Tgsb-2-Pohtyqjs 0.3 (0.2-0.5) g/dL Gamma Globulins 0.8 10.8 % Abnorm Protein Band 1 TEST NOT PERFORMED Abnorm Protein Band 2 TEST NOT PERFORMED Abnorm Protein Band 3 TEST NOT PERFORMED Urine Albumin (PEP) 64.5 % Ur Protein Fractions See note CAROLINE & SPEP Interp See note Laboratory Results - last 24 hr 06/08/18 06/08/18 06/10/18 09:10 11:00 21:00 WBC RBC Hgb Hct MCV MCH MCHC RDW Plt Count MPV Neut % (Auto) Lymph % (Auto) [place] % (Auto) Eos % (Auto) Baso % (Auto) Neut # (Auto) Lymph # (Auto) [place] # (Auto) Eos # (Auto) Baso # (Auto) Neutrophils % (Manual) Band Neutrophils % Lymphocytes % (Manual) Monocytes % (Manual) Eosinophils % (Manual) Platelet Estimate Hypochromasia (manual) Anisocytosis (manual) Microcytosis (manual) Ovalocytes PT INR APTT Sodium Potassium Chloride Carbon Dioxide Anion Gap BUN Creatinine Est GFR ( Amer) Est GFR (Non-Af Amer) POC Glucose (mg/dL) 215 H Random Glucose Calcium Phosphorus Magnesium Total Bilirubin AST ALT Alkaline Phosphatase Total Protein Albumin Albumin (PEP) 3.1 L Globulin Albumin/Globulin Ratio 1.82 Nrhbg-1-Omptkravp 7.6 0.4 H Apisc-1-Uxtfdvcro 5.9 0.8 Beta Globulins 11.2 Xtri-2-Yrbzpllt 0.3 L Vite-9-Tziwtfmo 0.3 Gamma Globulins 10.8 0.8 Abnorm Protein Band 1 TEST NOT PERFORMED Abnorm Protein Band 2 TEST NOT PERFORMED Abnorm Protein Band 3 TEST NOT PERFORMED Urine Albumin (PEP) 64.5 Ur Protein Fractions See note CAROLINE & SPEP Interp See note 06/11/18 06/11/18 06/11/18 06:10 06:10 07:24 WBC 17.2 H RBC 3.45 L Hgb 7.4 L Hct 22.7 L MCV 65.8 L MCH 21.3 L MCHC 32.4 L RDW 16.5 H Plt Count 84 L D MPV 9.7 Neut % (Auto) 77.9 H Lymph % (Auto) 10.2 L [place] % (Auto) 11.0 H Eos % (Auto) 0.6 Baso % (Auto) 0.3 Neut # (Auto) 13.4 H Lymph # (Auto) 1.8 [place] # (Auto) 1.9 H Eos # (Auto) 0.1 Baso # (Auto) 0.1 Neutrophils % (Manual) Band Neutrophils % Lymphocytes % (Manual) Monocytes % (Manual) Eosinophils % (Manual) Platelet Estimate Hypochromasia (manual) Anisocytosis (manual) Microcytosis (manual) Ovalocytes PT INR APTT Sodium 135 Potassium 3.5 L Chloride 102 Carbon Dioxide 22 Anion Gap 15 BUN 80 H Creatinine 5.9 H Est GFR ( Amer) 11 Est GFR (Non-Af Amer) 9 POC Glucose (mg/dL) 105 Random Glucose 103 D Calcium 7.4 L Phosphorus 4.6 H Magnesium 2.3 Total Bilirubin 1.2 AST 32 ALT 30 Alkaline Phosphatase 97 Total Protein 5.9 L Albumin 3.2 L Albumin (PEP) Globulin 2.7 Albumin/Globulin Ratio 1.2 Fjgce-4-Zlnoejrif Ritan-0-Uywwycnzu Beta Globulins Hlyp-0-Crhudrea Dphn-1-Prbyibfc Gamma Globulins Abnorm Protein Band 1 Abnorm Protein Band 2 Abnorm Protein Band 3 Urine Albumin (PEP) Ur Protein Fractions CAROLINE & SPEP Interp 06/11/18 06/11/18 06/11/18 10:48 10:48 10:48 WBC 16.9 H RBC 3.65 L Hgb 7.6 L Hct 24.0 L MCV 65.7 L MCH 20.9 L MCHC 31.8 L RDW 17.5 H Plt Count 89 L MPV 9.2 Neut % (Auto) 80.6 H Lymph % (Auto) 9.1 L [place] % (Auto) 9.0 Eos % (Auto) 1.0 Baso % (Auto) 0.3 Neut # (Auto) 13.6 H Lymph # (Auto) 1.5 [place] # (Auto) 1.5 H Eos # (Auto) 0.2 Baso # (Auto) 0.0 Neutrophils % (Manual) 85 H Band Neutrophils % 2 Lymphocytes % (Manual) 7 L Monocytes % (Manual) 5 Eosinophils % (Manual) 1 Platelet Estimate Decreased L Hypochromasia (manual) Moderate Anisocytosis (manual) Slight Microcytosis (manual) Moderate Ovalocytes Moderate PT 12.5 H INR 1.1 APTT 57 H Sodium 134 Potassium 3.3 L Chloride 99 Carbon Dioxide 21 L Anion Gap 17 BUN 82 H Creatinine 6.1 H Est GFR ( Amer) 11 Est GFR (Non-Af Amer) 9 POC Glucose (mg/dL) Random Glucose 197 H D Calcium 7.6 L Phosphorus Magnesium Total Bilirubin 1.1 AST 25 ALT 28 Alkaline Phosphatase 105 Total Protein 6.0 L Albumin 3.2 L Albumin (PEP) Globulin 2.8 Albumin/Globulin Ratio 1.2 Doyaa-5-Biklnqxmh Oqfwq-3-Ycmyrumnp Beta Globulins Zxse-0-Vtvbxubk Kxop-2-Oiqtjsrw Gamma Globulins Abnorm Protein Band 1 Abnorm Protein Band 2 Abnorm Protein Band 3 Urine Albumin (PEP) Ur Protein Fractions CAROLINE & SPEP Interp 06/11/18 06/11/18 11:15 16:29 WBC RBC Hgb Hct MCV MCH MCHC RDW Plt Count MPV Neut % (Auto) Lymph % (Auto) [place] % (Auto) Eos % (Auto) Baso % (Auto) Neut # (Auto) Lymph # (Auto) [place] # (Auto) Eos # (Auto) Baso # (Auto) Neutrophils % (Manual) Band Neutrophils % Lymphocytes % (Manual) Monocytes % (Manual) Eosinophils % (Manual) Platelet Estimate Hypochromasia (manual) Anisocytosis (manual) Microcytosis (manual) Ovalocytes PT INR APTT Sodium Potassium Chloride Carbon Dioxide Anion Gap BUN Creatinine Est GFR ( Amer) Est GFR (Non-Af Amer) POC Glucose (mg/dL) 233 H 278 H Random Glucose Calcium Phosphorus Magnesium Total Bilirubin AST ALT Alkaline Phosphatase Total Protein Albumin Albumin (PEP) Globulin Albumin/Globulin Ratio Ojzfe-2-Mivawfdyh Xczif-8-Ibhgynujt Beta Globulins Dflr-0-Odzozihi Sllb-2-Fquydkjz Gamma Globulins Abnorm Protein Band 1 Abnorm Protein Band 2 Abnorm Protein Band 3 Urine Albumin (PEP) Ur Protein Fractions CAROLINE & SPEP Interp Radiology Impressions: Radiology Impressions Abdomen/Pelvis CT 06/10/18 09:16 IMPRESSION: Examination limited by motion as well as lack of oral and IV contrast. Small bibasilar infiltrates/edema. Small bilateral pleural effusions and associated consolidations. Nonobstructive bowel containing left inguinal hernia. Nodular hypertrophy left adrenal gland. Ramsay catheter within a decompressed thick-walled urinary bladder. Air within the urinary bladder presumably due to recent instrumentation. Additional findings as above. Critical Care Progress Note - Nutrition Nutrition: Nutrition Category Date Time Status Heart Healthy Diet [DIET] Diets 06/09/18 Breakfast Active NPO Diet [DIET] Diets 06/12/18 Breakfast Active Attending/Attestation - Attestation I have personally seen and examined this patient.: Yes I have fully participated in the care of the patient.: Yes I have reviewed all pertinent clinical information: Yes Notes (Text): 06/11/18 17:51 Patient seen and examined in the intensive care unit. Case discussed with nephrology and the plan is to start hemodialysis Patient indecisive about the dialysis Possible cardiac cath once hemodialysis done Continue present medication
[2018-06-11] MEDS: Insulin Detemir 100 units/ml Vial (Levemir) SC SCH (13:09)
[2018-06-11 15:16] LABS: ALBUMIN 64.5 %; ALPHA-1 GLOBULIN 7.6 %
--- NOTE | 2018-06-11 17:07 | CP.PCM.CON ---
History of Present Illness - History of Present Illness History of Present Illness: SURGERY CONSULT NOTE FOR DR. BILLINGS Reason: Renal failure 83M with PMHx of HTN, hyperlipidemia, DM, SBO, CAD originally presented to the ED on 06/06 with abdominal pain. He was found to have SBO which was treated conservatively with NG tube and bowel rest. However, on 06/09, pt had [employer] for SOB and was found to have acute pulmonary edema and was transferred to the ICU. Pt had worsening renal function and nephrology recommending dialysis. PMH: HTN, HLD, MVP, DM, SBO, CAD, renal insufficiency PSH: Appy, prostatectomy, coronary stents*3, Ex-lap DEVIN Social: denies tobacco, alcohol and illicit drugs use Allergies: NKDA Review of Systems - Review of Systems All systems: reviewed and no additional remarkable complaints except (as per hpi) Past Patient History - Infectious Disease Hx of Infectious Diseases: None - Tetanus Immunizations Tetanus Immunization: Unknown - Past Medical History & Family History Past Medical History?: Yes - Past Social History Smoking Status: Never Smoked - CARDIAC Hx Cardiac Disorders: Yes (Coronary stent) Hx Congestive Heart Failure: Yes Hx Hypercholesterolemia: Yes Hx Hypertension: Yes - PULMONARY Hx Chronic Obstructive Pulmonary Disease (COPD): Yes - NEUROLOGICAL Hx Neurological Disorder: No - HEENT Hx HEENT Problems: Yes Hx Cataracts: Yes (both eyes) - RENAL Hx Chronic Kidney Disease: Yes - ENDOCRINE/METABOLIC Hx Diabetes Mellitus Type 2: Yes - HEMATOLOGICAL/ONCOLOGICAL Hx Anemia: Yes - INTEGUMENTARY Hx Dermatological Problems: No - MUSCULOSKELETAL/RHEUMATOLOGICAL Hx Falls: No - GASTROINTESTINAL Hx Diverticulitis: Yes - GENITOURINARY/GYNECOLOGICAL Hx Genitourinary Disorders: Yes Hx Prostate Cancer: Yes - PSYCHIATRIC Hx Substance Use: No - SURGICAL HISTORY Hx Appendectomy: Yes Hx Coronary Stent: Yes (3 yrs) - ANESTHESIA Hx Anesthesia: Yes Hx Anesthesia Reactions: No Hx Malignant Hyperthermia: No Meds Allergies/Adverse Reactions: Allergies Allergy/AdvReac Type Severity Reaction Status Date / Time No Known Allergies Allergy Verified 06/06/18 03:16 - Medications Medications: Current Medications Amlodipine Besylate (Norvasc) 10 mg PO DAILY [facility] Last Admin: 06/11/18 12:39 Dose: 10 mg Aspirin (Ecotrin) 81 mg PO DAILY [facility] Last Admin: 06/11/18 10:00 Dose: Not Given Epoetin Manny (Procrit) 10,000 unit SC MWF [facility] Last Admin: 06/10/18 10:01 Dose: 10,000 unit Furosemide (Lasix) 40 mg IVP BID [facility] Last Admin: 06/11/18 11:00 Dose: 40 mg Heparin Sodium (Porcine) (Heparin) 5,000 units SC Q8 [facility] Last Admin: 06/11/18 14:00 Dose: 5,000 units Hydralazine HCl (Apresoline) 10 mg PO TID [facility] Last Admin: 06/11/18 15:30 Dose: 10 mg Hydrochlorothiazide (Hydrodiuril) 25 mg PO DAILY [facility] Last Admin: 06/11/18 10:00 Dose: 25 mg Nitroglycerin/Dextrose (Nitroglycerin 50 Mg/250 Ml D5w) 50 mg in 250 mls @ 1.5 mls/hr IV .Q24H PRN; Protocol Last Titration: 06/10/18 13:01 Dose: 0 mcg/min, 0 mls/hr Piperacillin Sod/Tazobactam Sod (Zosyn 2.25 Gm Iv Premix) 2.25 gm in 50 mls @ 100 mls/hr IVPB Q6H [facility]; Protocol Last Admin: 06/11/18 13:00 Dose: 100 mls/hr Insulin Aspart (Novolog) 0 unit SC ACHS [facility]; Protocol Last Admin: 06/11/18 11:30 Dose: Not Given Insulin Detemir (Levemir) 10 unit SC DAILY [facility] Last Admin: 06/11/18 13:09 Dose: Not Given Losartan Potassium (Cozaar) 100 mg PO DAILY [facility] Last Admin: 06/11/18 12:39 Dose: 100 mg Metoprolol Tartrate (Lopressor) 50 mg PO BID [facility] Last Admin: 06/11/18 10:50 Dose: 50 mg Multivitamins (Hexavitamin) 1 tab PO DAILY [facility] Last Admin: 06/11/18 12:37 Dose: 1 tab Pantoprazole Sodium (Protonix Ec Tab) 20 mg PO DAILY [facility] Potassium Chloride (K-Dur 20 Meq Er Tab) 40 meq PO ONCE ONE Stop: 06/12/18 12:46 Rosuvastatin Calcium (Crestor) 10 mg PO HS [facility] Last Admin: 06/10/18 22:10 Dose: 10 mg Physical Exam - Constitutional Appears: Non-toxic, No Acute Distress - Head Exam Head Exam: ATRAUMATIC, NORMAL INSPECTION - Eye Exam Eye Exam: EOMI, Normal appearance - Respiratory Exam Respiratory Exam: NORMAL BREATHING PATTERN. absent: Respiratory Distress - Cardiovascular Exam Cardiovascular Exam: +S1, +S2 - GI/Abdominal Exam GI & Abdominal Exam: Soft. absent: Distended, Rigid, Tenderness - Neurological Exam Neurological exam: Alert, CN II-XII Intact, Oriented x3 - Psychiatric Exam Psychiatric exam: Normal Affect, Normal Mood - Skin Skin Exam: Dry, Warm Results - Vital Signs Recent Vital Signs: Last Vital Signs Temp 98.2 F 06/11/18 09:55 Pulse 64 06/11/18 15:00 Resp 14 06/11/18 15:00 BP 141/53 L 06/11/18 14:54 Pulse Ox 100 06/11/18 15:00 - Labs Result Diagrams: 06/11/18 10:48 06/11/18 10:48 Labs: Laboratory Results - last 24 hr 06/08/18 06/08/18 06/10/18 09:10 11:00 21:00 WBC RBC Hgb Hct MCV MCH MCHC RDW Plt Count MPV Neut % (Auto) Lymph % (Auto) [place] % (Auto) Eos % (Auto) Baso % (Auto) Neut # (Auto) Lymph # (Auto) [place] # (Auto) Eos # (Auto) Baso # (Auto) Neutrophils % (Manual) Band Neutrophils % Lymphocytes % (Manual) Monocytes % (Manual) Eosinophils % (Manual) Platelet Estimate Hypochromasia (manual) Anisocytosis (manual) Microcytosis (manual) Ovalocytes PT INR APTT Sodium Potassium Chloride Carbon Dioxide Anion Gap BUN Creatinine Est GFR ( Amer) Est GFR (Non-Af Amer) POC Glucose (mg/dL) 215 H Random Glucose Calcium Phosphorus Magnesium Total Bilirubin AST ALT Alkaline Phosphatase Total Protein Albumin Albumin (PEP) 3.1 L Globulin Albumin/Globulin Ratio 1.82 Etgcn-0-Chidhvmkn 7.6 0.4 H Mqtej-3-Gtnppklyd 5.9 0.8 Beta Globulins 11.2 Xtpc-1-Mtdfshhw 0.3 L Gwef-5-Lgyaaefd 0.3 Gamma Globulins 10.8 0.8 Abnorm Protein Band 1 TEST NOT PERFORMED Abnorm Protein Band 2 TEST NOT PERFORMED Abnorm Protein Band 3 TEST NOT PERFORMED Urine Albumin (PEP) 64.5 Ur Protein Fractions See note CAROLINE & SPEP Interp See note 06/11/18 06/11/18 06/11/18 06:10 06:10 07:24 WBC 17.2 H RBC 3.45 L Hgb 7.4 L Hct 22.7 L MCV 65.8 L MCH 21.3 L MCHC 32.4 L RDW 16.5 H Plt Count 84 L D MPV 9.7 Neut % (Auto) 77.9 H Lymph % (Auto) 10.2 L [place] % (Auto) 11.0 H Eos % (Auto) 0.6 Baso % (Auto) 0.3 Neut # (Auto) 13.4 H Lymph # (Auto) 1.8 [place] # (Auto) 1.9 H Eos # (Auto) 0.1 Baso # (Auto) 0.1 Neutrophils % (Manual) Band Neutrophils % Lymphocytes % (Manual) Monocytes % (Manual) Eosinophils % (Manual) Platelet Estimate Hypochromasia (manual) Anisocytosis (manual) Microcytosis (manual) Ovalocytes PT INR APTT Sodium 135 Potassium 3.5 L Chloride 102 Carbon Dioxide 22 Anion Gap 15 BUN 80 H Creatinine 5.9 H Est GFR ( Amer) 11 Est GFR (Non-Af Amer) 9 POC Glucose (mg/dL) 105 Random Glucose 103 D Calcium 7.4 L Phosphorus 4.6 H Magnesium 2.3 Total Bilirubin 1.2 AST 32 ALT 30 Alkaline Phosphatase 97 Total Protein 5.9 L Albumin 3.2 L Albumin (PEP) Globulin 2.7 Albumin/Globulin Ratio 1.2 Vdpef-5-Mksaofkvo Pclvs-9-Rqkekzofl Beta Globulins Wlwv-2-Wsdynamv Vynv-1-Xdujlrcy Gamma Globulins Abnorm Protein Band 1 Abnorm Protein Band 2 Abnorm Protein Band 3 Urine Albumin (PEP) Ur Protein Fractions CAROLINE & SPEP Interp 06/11/18 06/11/18 06/11/18 10:48 10:48 10:48 WBC 16.9 H RBC 3.65 L Hgb 7.6 L Hct 24.0 L MCV 65.7 L MCH 20.9 L MCHC 31.8 L RDW 17.5 H Plt Count 89 L MPV 9.2 Neut % (Auto) 80.6 H Lymph % (Auto) 9.1 L [place] % (Auto) 9.0 Eos % (Auto) 1.0 Baso % (Auto) 0.3 Neut # (Auto) 13.6 H Lymph # (Auto) 1.5 [place] # (Auto) 1.5 H Eos # (Auto) 0.2 Baso # (Auto) 0.0 Neutrophils % (Manual) 85 H Band Neutrophils % 2 Lymphocytes % (Manual) 7 L Monocytes % (Manual) 5 Eosinophils % (Manual) 1 Platelet Estimate Decreased L Hypochromasia (manual) Moderate Anisocytosis (manual) Slight Microcytosis (manual) Moderate Ovalocytes Moderate PT 12.5 H INR 1.1 APTT 57 H Sodium 134 Potassium 3.3 L Chloride 99 Carbon Dioxide 21 L Anion Gap 17 BUN 82 H Creatinine 6.1 H Est GFR ( Amer) 11 Est GFR (Non-Af Amer) 9 POC Glucose (mg/dL) Random Glucose 197 H D Calcium 7.6 L Phosphorus Magnesium Total Bilirubin 1.1 AST 25 ALT 28 Alkaline Phosphatase 105 Total Protein 6.0 L Albumin 3.2 L Albumin (PEP) Globulin 2.8 Albumin/Globulin Ratio 1.2 Khikk-4-Kqtemoarc Ygivs-8-Vbomwebvt Beta Globulins Pilc-6-Bwlmmdly Yavy-7-Atnktbtf Gamma Globulins Abnorm Protein Band 1 Abnorm Protein Band 2 Abnorm Protein Band 3 Urine Albumin (PEP) Ur Protein Fractions CAROLINE & SPEP Interp 06/11/18 06/11/18 11:15 16:29 WBC RBC Hgb Hct MCV MCH MCHC RDW Plt Count MPV Neut % (Auto) Lymph % (Auto) [place] % (Auto) Eos % (Auto) Baso % (Auto) Neut # (Auto) Lymph # (Auto) [place] # (Auto) Eos # (Auto) Baso # (Auto) Neutrophils % (Manual) Band Neutrophils % Lymphocytes % (Manual) Monocytes % (Manual) Eosinophils % (Manual) Platelet Estimate Hypochromasia (manual) Anisocytosis (manual) Microcytosis (manual) Ovalocytes PT INR APTT Sodium Potassium Chloride Carbon Dioxide Anion Gap BUN Creatinine Est GFR ( Amer) Est GFR (Non-Af Amer) POC Glucose (mg/dL) 233 H 278 H Random Glucose Calcium Phosphorus Magnesium Total Bilirubin AST ALT Alkaline Phosphatase Total Protein Albumin Albumin (PEP) Globulin Albumin/Globulin Ratio Rnspx-9-Tvdqikbss Sitxf-8-Vkqrmmvfk Beta Globulins Tbek-3-Nvfrpejh Dkqd-0-Bnsuopoc Gamma Globulins Abnorm Protein Band 1 Abnorm Protein Band 2 Abnorm Protein Band 3 Urine Albumin (PEP) Ur Protein Fractions CAROLINE & SPEP Interp Assessment & Plan - Assessment and Plan (Free Text) Assessment: 83M with PMHx of HTN, hyperlipidemia, DM, SBO, CAD, resolved SBO now with renal failure requiring dialysis - Plan for Permacath tomorrow - Risks, benefits, and alternatives discussed with pt and family at length. Pt agrees for procedure and written consent was obtained - NPO past midnight - Hold heparin in AM - Discussed plan with Dr. Nathan Leavitt PGY-4
[2018-06-11] MEDS ORDERED: Potassium Chloride 20 mEq/15 ml LIQ UD PO ONE ×2 (18:49→20:30)
[2018-06-12] MEDS: Piperacill/Tazo 2.25gm in Dex 2.25 GM/50 ML BAG IVPB SCH ×2 (01:30→06:46)
[2018-06-12 05:53] LABS: BASO # 0.1 K/uL (0.0-0.2); BASO % 0.6 % (0.0-2.0); EOS # 0.4 K/uL (0.0-0.7); EOS % 2.9 % (0.0-4.0); HEMOGLOBIN 7.7 g/dL (12.0-18.0); LYMPH # 1.9 K/uL (1.0-4.3); MEAN CELL VOLUME 66.6 fL (80.0-94.0); MEAN CORPUSCULAR HGB CONC 31.5 g/dL (33.0-37.0); MEAN PLATELET VOLUME 9.8 fL (7.2-11.7); MONO # 1.3 K/uL (0.0-0.8); MONO % 8.8 % (0.0-10.0); NEUT # 10.8 K/uL (1.8-7.0); NEUT % 74.7 % (50.0-75.0); NRBC % 0.1 % (0.0-2.0); RBC 3.67 Mil/uL (4.40-5.90); RED CELL DISTRIBUTION WIDTH 17.2 % (11.5-14.5); WHITE BLOOD COUNT 14.5 K/uL (4.8-10.8)
[2018-06-12 06:19] LABS: ALB/GLOB RATIO 1.1 (1.0-2.1); ALBUMIN 3.2 g/dL (3.5-5.0); CALCIUM 7.6 mg/dl (8.6-10.4)
--- NOTE | 2018-06-12 07:03 | CP.PCM.PN ---
Subjective - Date & Time of Evaluation Date of Evaluation: 06/11/18 Time of Evaluation: 17:30 - Subjective Subjective: Patient seen and evaluatedPatient seen and evaluated Denies chest pain and dyspnea Physical Exam - Constitutional Appears: Non-toxic, No Acute Distress - ENT Exam ENT Exam: Mucous Membranes Moist - Respiratory Exam Respiratory Exam: Clear to Auscultation Bilateral, NORMAL BREATHING PATTERN - Cardiovascular Exam Cardiovascular Exam: REGULAR RHYTHM, +S1, +S2 - GI/Abdominal Exam GI & Abdominal Exam: Distended, Soft, Tenderness. absent: Firm, Guarding, Rebound, Rigid Additional comments: full, tender, distended NGT in place with bilious output Ex lap scar noted - Extremities Exam Extremities exam: Negative for: pedal edema, tenderness - Neurological Exam Neurological exam: Alert, Oriented x3 - Psychiatric Exam Psychiatric exam: Normal Affect, Normal Mood - Skin Skin Exam: Dry, Intact, Normal Color, Warm Assessment & Plan - Assessment and Plan (Free Text) Assessment: SBO improved 1. CAD s/p RCA stent 05/2016. No interval cardiac symptoms 2. Normal EF 3. HTN 4. CKD 5. ACS 6. Fevere/Sepsis? 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 EF 55% Avoid fluid overload Lasix IV as needed Patient developing anemia likely CKD May need transfusion and definitive renal therapy (HD) phillip Objective - Vital Signs/Intake and Output Vital Signs (last 24 hours): Temp Pulse Resp BP Pulse Ox 98.2 F 66 11 L 136/59 L 95 06/12/18 03:00 06/12/18 06:09 06/12/18 06:09 06/12/18 06:09 06/12/18 06:09 Intake and Output: 06/11/18 06/12/18 18:59 06:59 Intake Total 1260 460 Output Total 1020 500 Balance 240 -40 - Medications Medications: Current Medications Amlodipine Besylate (Norvasc) 10 mg PO DAILY [facility] Last Admin: 06/11/18 12:39 Dose: 10 mg Aspirin (Ecotrin) 81 mg PO DAILY [facility] Last Admin: 06/11/18 10:00 Dose: Not Given Epoetin Manny (Procrit) 10,000 unit SC MWF [facility] Last Admin: 06/10/18 10:01 Dose: 10,000 unit Furosemide (Lasix) 40 mg IVP BID [facility] Last Admin: 06/11/18 18:35 Dose: 40 mg Heparin Sodium (Porcine) (Heparin) 5,000 units SC Q8 [facility] Last Admin: 06/11/18 21:05 Dose: 5,000 units Hydralazine HCl (Apresoline) 10 mg PO TID [facility] Last Admin: 06/11/18 18:37 Dose: 10 mg Hydrochlorothiazide (Hydrodiuril) 25 mg PO DAILY [facility] Last Admin: 06/11/18 10:00 Dose: 25 mg Nitroglycerin/Dextrose (Nitroglycerin 50 Mg/250 Ml D5w) 50 mg in 250 mls @ 1.5 mls/hr IV .Q24H PRN; Protocol Last Titration: 06/10/18 13:01 Dose: 0 mcg/min, 0 mls/hr Piperacillin Sod/Tazobactam Sod (Zosyn 2.25 Gm Iv Premix) 2.25 gm in 50 mls @ 100 mls/hr IVPB Q6H [facility]; Protocol Last Admin: 06/12/18 06:46 Dose: 100 mls/hr Insulin Aspart (Novolog) 0 unit SC ACHS [facility]; Protocol Last Admin: 06/11/18 21:55 Dose: Not Given Insulin Detemir (Levemir) 10 unit SC DAILY [facility] Last Admin: 06/11/18 13:09 Dose: Not Given Losartan Potassium (Cozaar) 100 mg PO DAILY [facility] Last Admin: 06/11/18 12:39 Dose: 100 mg Metoprolol Tartrate (Lopressor) 50 mg PO BID [facility] Last Admin: 06/11/18 18:37 Dose: 50 mg Multivitamins (Hexavitamin) 1 tab PO DAILY [facility] Last Admin: 06/11/18 12:37 Dose: 1 tab Pantoprazole Sodium (Protonix Ec Tab) 20 mg PO DAILY [facility] Rosuvastatin Calcium (Crestor) 10 mg PO HS [facility] Last Admin: 06/11/18 21:05 Dose: 10 mg - Labs Labs: 06/12/18 05:49 06/12/18 05:49 PT 12.5 SECONDS (9.7-12.2) H 06/11/18 10:48 INR 1.1 06/11/18 10:48 APTT 57 SECONDS (21-34) H 06/11/18 10:48
--- NOTE | 2018-06-12 07:13 | PN ---
DATE: 06/11/2018 FOLLOWUP RENAL CONSULTATION LOCATION: The patient is located in ICU, bed 3. REQUESTED BY: Ana Noel MD REASON FOR FOLLOWUP: Acute renal failure, chronic kidney disease, anemia, non-ST elevation myocardial infarction, status post flash pulmonary edema. HISTORY OF PRESENT ILLNESS: The patient is an 83-year-old elderly very pleasant [place] male with a past medical history significant for longstanding hypertension, diabetes, hyperlipidemia, chronic kidney disease, anemia, alpha thalassemia, microcytic anemia, CKD, nephrotic-range proteinuria, CAD, status post stent placement, status post abdominal surgery who was admitted with chief complaints of abdominal pain, abdominal distention, found to have a small bowel obstruction, and subsequently, the patient was placed on low Gumco suction. His symptoms improved after 24 hours and started on clear liquids. The patient went into flash pulmonary edema two days ago requiring transfer to ICU and placed initially BiPAP machine and also IV nitroglycerin and IV Lasix. The patient is feeling much better, not in acute distress, and also the patient had elevated troponin levels. The patient is not in acute distress. Denies any chest pain or palpitation. Denies any fever or cough. No abdominal pain. No nausea, vomiting, or diarrhea. PHYSICAL EXAMINATION: VITAL SIGNS: As follows: Blood pressure 141/53, pulse 62, respirations 14, saturation 100%, and temperature 98.2. Height 5 feet 4 inches, weight is 139 pounds. GENERAL: The patient is an 83-year-old elderly [place] male, moderately built, moderately nourished, not in acute distress. HEENT: Pupils normal and reactive to light and accommodation. Conjunctivae pink. Sclerae anicteric. Tongue is moist. Trachea is midline. LUNGS: Symmetric on both sides. Bilateral breath sounds present. Occasional basal crackles present. CARDIOVASCULAR SYSTEM: [place] at the fifth intercostal space, midclavicular line. S1, S2 audible. No murmur or gallop. ABDOMEN: Normal in appearance, soft, tympanitic. No guarding. No rigidity. No hepatosplenomegaly. CENTRAL NERVOUS SYSTEM: The patient is alert, awake, and oriented x3. Nonfocal neuro examination. Cranial nerves II through XII grossly intact. Sensory and motor system is within normal limits. EXTREMITIES: No cyanosis, no clubbing, no edema. MEDICATIONS: Include hydralazine 10 mg p.o. t.i.d., losartan 100 mg p.o. daily, Crestor 10 mg at bedtime, aspirin 81 mg daily, heparin on hold, vitamins, multivitamin 1 tablet daily, hydrochlorothiazide 25 mg p.o. daily, Lasix 40 mg IV b.i.d., Levemir 10 units subcu daily, Lopressor 50 mg p.o. b.i.d., IV nitroglycerin 5 mcg per minute, amlodipine 10 mg p.o. daily, Procrit 10,000 units 3 times a week, Protonix 20 mg p.o. daily, Zosyn 2.25 g IV every 6 hours. LABORATORY DATA: Include as follows: Blood culture x1 as of 06/10/2018, blood cultures are positive for gram-negative rods by aerobic and anaerobic bottles. Urine culture was negative as of 06/09/2018. Other laboratory data as of 06/11/2018, WBC 16.9, hemoglobin 7.6, hematocrit is 24, MCV 65.7, platelets 89, neutrophils 85, bands 2, lymphs 7, monos 5, eosinophils 1, PT 12.5, PTT 57. Sodium 134, potassium 3.3, chloride 99, CO2 of 21, BUN 82, creatinine 6.1, glucose 197, calcium 7.6, total bili 1.5, AST 25, ALT 28, alkaline phosphatase 105, total protein 6, and albumin is 3.2. Chest x-ray report is pending as of 06/11/2018. IMPRESSION: In summary, the patient is an 83-year-old elderly [place] male with a history of longstanding hypertension, diabetes, hyperlipidemia, coronary artery disease, status post stent placement who was admitted with small bowel obstruction and status post low Gumco suction and status post flash pulmonary edema requiring transfer to ICU and the patient has spiked to 102 on 06/09/2018, and his blood culture is positive for gram-negative rods, both aerobic and anaerobic bottles. 1. Acute renal failure, on chronic kidney disease. 2. Gram-negative sepsis. 3. Anemia, most likely secondary to chronic kidney disease and alpha thalassemia. 4. Status post pulmonary edema. 5. Non-ST elevation myocardial infarction. PLAN: Continue IV antibiotics and consider ID consultation and also discuss with rubber goods inspector tester, who is also agreeing for possible initiation for the renal replacement therapy. Discussed with the patient, and he is awaiting for the patient's family decision. Repeat blood cultures and consider to wait for PermCath until the repeat blood cultures are negative. No need for emergency dialysis in a.m., and we will wait for the PermCath until blood cultures are negative. We will follow with you. Thank you for allowing me to participate in your patient's care Aamir Galeano MD
[2018-06-12] MEDS: (Novolog) Insulin Aspart, Recombinant 100 u/ml 10 ml vial SC SCH ×4 (07:30→22:26)
--- NOTE | 2018-06-12 10:19 | CP.PCM.PN ---
Subjective - Date & Time of Evaluation Date of Evaluation: 06/12/18 Time of Evaluation: 10:18 - Subjective Subjective: pt is seen and examined, follow up consult is dictated #[id number] please consider nettie catheter for now once repeat c/s are negative can plan perma cath transfuse 2 units prbc Objective - Vital Signs/Intake and Output Vital Signs (last 24 hours): Temp Pulse Resp BP Pulse Ox 98.3 F 67 13 144/50 L 100 06/12/18 07:00 06/12/18 08:09 06/12/18 08:09 06/12/18 08:09 06/12/18 07:10 Intake and Output: 06/12/18 06/12/18 06:59 18:59 Intake Total 460 0 Output Total 500 Balance -40 0 - Medications Medications: Current Medications Amlodipine Besylate (Norvasc) 10 mg PO DAILY [facility] Last Admin: 06/11/18 12:39 Dose: 10 mg Aspirin (Ecotrin) 81 mg PO DAILY [facility] Last Admin: 06/11/18 10:00 Dose: Not Given Epoetin Manny (Procrit) 10,000 unit SC MWF [facility] Last Admin: 06/10/18 10:01 Dose: 10,000 unit Furosemide (Lasix) 40 mg IVP BID [facility] Last Admin: 06/11/18 18:35 Dose: 40 mg Heparin Sodium (Porcine) (Heparin) 5,000 units SC Q8 [facility] Last Admin: 06/11/18 21:05 Dose: 5,000 units Hydralazine HCl (Apresoline) 10 mg PO TID [facility] Last Admin: 06/11/18 18:37 Dose: 10 mg Hydrochlorothiazide (Hydrodiuril) 25 mg PO DAILY [facility] Last Admin: 06/11/18 10:00 Dose: 25 mg Nitroglycerin/Dextrose (Nitroglycerin 50 Mg/250 Ml D5w) 50 mg in 250 mls @ 1.5 mls/hr IV .Q24H [facility]; Protocol Last Titration: 06/10/18 13:01 Dose: 0 mcg/min, 0 mls/hr Meropenem 500 mg/ Sodium (Chloride) 100 mls @ 100 mls/hr IVPB Q24H [facility]; Protocol Insulin Aspart (Novolog) 0 unit SC ACHS [facility]; Protocol Last Admin: 06/12/18 07:30 Dose: Not Given Insulin Detemir (Levemir) 10 unit SC DAILY [facility] Last Admin: 06/11/18 13:09 Dose: Not Given Losartan Potassium (Cozaar) 100 mg PO DAILY [facility] Last Admin: 06/11/18 12:39 Dose: 100 mg Metoprolol Tartrate (Lopressor) 50 mg PO BID [facility] Last Admin: 06/11/18 18:37 Dose: 50 mg Multivitamins (Hexavitamin) 1 tab PO DAILY [facility] Last Admin: 06/11/18 12:37 Dose: 1 tab Pantoprazole Sodium (Protonix Ec Tab) 20 mg PO DAILY [facility] Rosuvastatin Calcium (Crestor) 10 mg PO HS [facility] Last Admin: 06/11/18 21:05 Dose: 10 mg - Labs Labs: 06/12/18 05:49 06/12/18 05:49 PT 12.5 SECONDS (9.7-12.2) H 06/11/18 10:48 INR 1.1 06/11/18 10:48 APTT 57 SECONDS (21-34) H 06/11/18 10:48
[2018-06-12] MEDS: Insulin Detemir 100 units/ml Vial (Levemir) SC SCH (11:15)
[2018-06-12] MEDS: EPOETIN ALFA 10,000 UNIT/ML ML SC SCH (11:22)
--- NOTE | 2018-06-12 11:23 | CP.PCM.PN ---
Subjective - Date & Time of Evaluation Date of Evaluation: 06/12/18 Time of Evaluation: 12:00 - Subjective Subjective: chart review noted preparation for dialysis noted constipation vitals reviewed patient seen, had bowel movement after supository no abdominal pain feeding - no complaints was seen by renal- prep for dialysis ongoing daughter by bedside aware no breathing problem Objective - Vital Signs/Intake and Output Vital Signs (last 24 hours): Temp Pulse Resp BP Pulse Ox 98.3 F 67 16 144/51 L 97 06/12/18 07:00 06/12/18 11:09 06/12/18 11:09 06/12/18 11:09 06/12/18 11:09 Intake and Output: 06/12/18 06/12/18 06:59 18:59 Intake Total 460 0 Output Total 500 Balance -40 0 - Medications Medications: Current Medications Amlodipine Besylate (Norvasc) 10 mg PO DAILY [facility] Last Admin: 06/11/18 12:39 Dose: 10 mg Aspirin (Ecotrin) 81 mg PO DAILY [facility] Last Admin: 06/11/18 10:00 Dose: Not Given Epoetin Manny (Procrit) 10,000 unit SC MWF [facility] Last Admin: 06/10/18 10:01 Dose: 10,000 unit Furosemide (Lasix) 40 mg IVP BID [facility] Last Admin: 06/11/18 18:35 Dose: 40 mg Heparin Sodium (Porcine) (Heparin) 5,000 units SC Q8 [facility] Last Admin: 06/11/18 21:05 Dose: 5,000 units Hydralazine HCl (Apresoline) 10 mg PO TID [facility] Last Admin: 06/12/18 11:13 Dose: Not Given Hydrochlorothiazide (Hydrodiuril) 25 mg PO DAILY [facility] Last Admin: 06/11/18 10:00 Dose: 25 mg Nitroglycerin/Dextrose (Nitroglycerin 50 Mg/250 Ml D5w) 50 mg in 250 mls @ 1.5 mls/hr IV .Q24H [facility]; Protocol Last Titration: 06/10/18 13:01 Dose: 0 mcg/min, 0 mls/hr Meropenem 500 mg/ Sodium (Chloride) 100 mls @ 100 mls/hr IVPB Q24H [facility]; Protocol Insulin Aspart (Novolog) 0 unit SC ACHS [facility]; Protocol Last Admin: 06/12/18 11:16 Dose: Not Given Insulin Detemir (Levemir) 10 unit SC DAILY [facility] Last Admin: 06/12/18 11:15 Dose: Not Given Losartan Potassium (Cozaar) 100 mg PO DAILY [facility] Last Admin: 06/11/18 12:39 Dose: 100 mg Metoprolol Tartrate (Lopressor) 50 mg PO BID [facility] Last Admin: 06/12/18 11:15 Dose: Not Given Multivitamins (Hexavitamin) 1 tab PO DAILY [facility] Last Admin: 06/11/18 12:37 Dose: 1 tab Pantoprazole Sodium (Protonix Ec Tab) 20 mg PO DAILY [facility] Rosuvastatin Calcium (Crestor) 10 mg PO HS [facility] Last Admin: 06/11/18 21:05 Dose: 10 mg - Labs Labs: 06/12/18 05:49 06/12/18 05:49 PT 12.5 SECONDS (9.7-12.2) H 06/11/18 10:48 INR 1.1 06/11/18 10:48 APTT 57 SECONDS (21-34) H 06/11/18 10:48 - Constitutional Appears: Non-toxic, No Acute Distress - Head Exam Head Exam: ATRAUMATIC, NORMOCEPHALIC - Eye Exam Eye Exam: Normal appearance. absent: Nystagmus - ENT Exam ENT Exam: Mucous Membranes Moist - Neck Exam Neck Exam: Full ROM. absent: Tenderness - Respiratory Exam Respiratory Exam: Decreased Breath Sounds - Cardiovascular Exam Cardiovascular Exam: REGULAR RHYTHM - GI/Abdominal Exam GI & Abdominal Exam: Soft, Normal Bowel Sounds. absent: Distended, Tenderness - Back Exam Back Exam: Full ROM - Neurological Exam Neurological Exam: Alert, Awake, Oriented x3 (in bed in icu ) - Psychiatric Exam Psychiatric exam: Normal Affect, Normal Mood - Skin Skin Exam: Intact, Normal Color Assessment and Plan (1) Renal insufficiency Assessment & Plan: preparation for HD Status: Acute (2) Hypertension associated with chronic kidney disease due to type 2 diabetes mellitus Assessment & Plan: under renal care prep for dialysis, adjust BP meds Status: Acute (3) Coronary arteriosclerosis Assessment & Plan: currently no chest pain, furher cardiac evaluation after renal Status: Chronic (4) Small bowel obstruction Assessment & Plan: currently no abdominal pain, feeding with BM yesterday Status: Acute (5) Anemia Assessment & Plan: with renal failure on ferlicit propcrit , post transfusion, monitoring Status: Acute (6) Diabetes mellitus Status: Acute (7) Fever of unknown origin (FUO) Assessment & Plan: culture came back positive, on antibiotic with improvement Status: Acute (8) CHF (congestive heart failure) Assessment & Plan: with episode of rapid response, better, on diuretics, with renal failure HD prep Status: Acute
--- NOTE | 2018-06-12 11:38 | CP.CCUPN ---
<Chantell Mclains M - Last Filed: 06/12/18 13:52> CCU Subjective - Physician Review Subjective (Free Text): Critical care progress note for Dr. Alicia. Patient seen and examined at bedside. No overnight events. Patient afebrile > 24H with downtrending WBC. Patient states he has no SOB, producing urine, bowel movements. Patient has no active complaints. Patient denies headaches, vision changes, nausea, vomiting, f/c, chest pain. Patient scheduled for permacath later today. 06/12/18 11:40 CCU Objective - Vital Signs / Intake & Output Vital Signs (Last 4 hours): Vital Signs Pulse Resp BP Pulse Ox 06/12/18 11:22 144/51 L 06/12/18 11:09 67 16 144/51 L 97 06/12/18 10:09 143/58 L 06/12/18 10:00 62 13 99 06/12/18 09:10 64 13 154/55 H 99 06/12/18 08:09 67 13 144/50 L Intake and Output (Last 8hrs): Intake & Output 06/11/18 06/12/18 06/12/18 22:59 06:59 14:59 Intake Total 410 50 0 Output Total 0 500 Balance 410 -450 0 Intake: Intake, IV Amount 50 50 Right Antecubital 50 50 Oral 360 0 0 Output: Urine 0 500 Urine, Voided 0 500 Stool 0 0 Other: # Bowel Movements 1 - Physical Exam Head: Positive for: Atraumatic, Normocephalic Pupils: Positive for: PERRL Conjunctiva: Positive for: Normal Mouth: Positive for: Moist Mucous Membranes Neck: Positive for: Normal Range of Motion Respiratory/Chest: Positive for: Good Air Exchange, Rales (R > L ). Negative for: Accessory Muscle Use Cardiovascular: Positive for: Normal S1, S2 Abdomen: Positive for: Normal Bowel Sounds. Negative for: Tenderness, Distention Lower Extremity: Positive for: Normal Inspection. Negative for: Edema, Cyanosis Neurological: Positive for: GCS=15, Speech Normal Skin: Positive for: Warm, Normal Color Psychiatric: Positive for: Oriented x 3 - Medications Active Medications: Active Medications Generic Name Dose Route Start Last Admin Trade Name Freq PRN Reason Stop Dose Admin Amlodipine Besylate 10 mg 06/10/18 10:00 06/11/18 12:39 Norvasc PO 10 mg DAILY [facility] Administration Aspirin 81 mg 06/06/18 10:00 06/11/18 10:00 Ecotrin PO Not Given DAILY [facility] Epoetin Manny 10,000 unit 06/10/18 09:00 06/12/18 11:22 Procrit SC 10,000 unit MWF [facility] Administration Furosemide 40 mg 06/09/18 20:00 06/12/18 11:22 Lasix IVP 40 mg BID [facility] Administration Heparin Sodium (Porcine) 5,000 units 06/10/18 16:00 06/11/18 21:05 Heparin SC 5,000 units Q8 [facility] Administration Hydralazine HCl 10 mg 06/10/18 10:00 06/12/18 11:13 Apresoline PO Not Given TID [facility] Hydrochlorothiazide 25 mg 06/08/18 10:00 06/11/18 10:00 Hydrodiuril PO 25 mg DAILY [facility] Administration Nitroglycerin/Dextrose 50 mg in 250 mls @ 1.5 mls/hr 06/09/18 11:30 06/10/18 13:01 Nitroglycerin 50 Mg/250 Ml D5w IV 0 mcg/min .Q24H PRN 0 mls/hr Titration Protocol 5 MCG/MIN Meropenem 500 mg/ Sodium 100 mls @ 100 mls/hr 06/12/18 14:00 Chloride IVPB Q24H [facility] Protocol Insulin Aspart 0 unit 06/10/18 16:30 06/12/18 11:16 Novolog SC Not Given ACHS [facility] Protocol Insulin Detemir 10 unit 06/10/18 17:45 06/12/18 11:15 Levemir SC Not Given DAILY [facility] Losartan Potassium 100 mg 06/07/18 10:00 06/11/18 12:39 Cozaar PO 100 mg DAILY [facility] Administration Metoprolol Tartrate 50 mg 06/07/18 10:00 06/12/18 11:15 Lopressor PO Not Given BID [facility] Multivitamins 1 tab 06/07/18 10:00 06/11/18 12:37 Hexavitamin PO 1 tab DAILY [facility] Administration Pantoprazole Sodium 20 mg 06/12/18 10:00 Protonix Ec Tab PO DAILY [facility] Rosuvastatin Calcium 10 mg 06/06/18 22:00 06/11/18 21:05 Crestor PO 10 mg HS [facility] Administration - Patient Studies Lab Studies: Microbiology Studies 06/10/18 10:36 Blood Culture - Final Blood Klebsiella Pneumoniae Ssp Pneu Gram Stain - Final 06/07/18 21:49 Blood Culture - Preliminary Blood-Venous NO GROWTH AFTER 4 DAYS 06/07/18 21:49 Blood Culture - Preliminary Blood-Venous NO GROWTH AFTER 4 DAYS Lab Studies 06/12/18 06/12/18 06/12/18 Range/Units 07:04 05:49 05:49 WBC (4.8-10.8) K/uL RBC (4.40-5.90) Mil/uL Hgb (12.0-18.0) g/dL Hct (35.0-51.0) % MCV (80.0-94.0) fL MCH (27.0-31.0) pg MCHC (33.0-37.0) g/dL RDW (11.5-14.5) % Plt Count (130-400) K/uL MPV (7.2-11.7) fL Neut % (Auto) (50.0-75.0) % Lymph % (Auto) (20.0-40.0) % Sunflower % (Auto) (0.0-10.0) % Eos % (Auto) (0.0-4.0) % Baso % (Auto) (0.0-2.0) % Neut # (Auto) (1.8-7.0) K/uL Lymph # (Auto) (1.0-4.3) K/uL Sunflower # (Auto) (0.0-0.8) K/uL Eos # (Auto) (0.0-0.7) K/uL Baso # (Auto) (0.0-0.2) K/uL Neutrophils % (Manual) (50-75) % Band Neutrophils % (0-2) % Lymphocytes % (Manual) (20-40) % Monocytes % (Manual) (0-10) % Eosinophils % (Manual) (0-4) % Platelet Estimate (NORMAL) Hypochromasia (manual) Anisocytosis (manual) Microcytosis (manual) Ovalocytes Sodium 134 (132-148) mmol/L Potassium 3.7 (3.6-5.2) mmol/L Chloride 100 (98-107) mmol/L Carbon Dioxide 21 L (22-30) mmol/L Anion Gap 17 (10-20) BUN 83 H (9-20) mg/dL Creatinine 7.1 H (0.8-1.5) mg/dL Est GFR ( Amer) 9 Est GFR (Non-Af Amer) 7 POC Glucose (mg/dL) 165 H (65-110) mg/dL Random Glucose 173 H (75-110) mg/dL Calcium 7.6 L (8.6-10.4) mg/dl Phosphorus 4.4 (2.5-4.5) mg/dL Magnesium 2.3 (1.6-2.3) mg/dL Total Bilirubin 0.8 (0.2-1.3) mg/dL AST 21 (17-59) U/L ALT 34 (21-72) U/L Alkaline Phosphatase 135 H D (38-126) U/L Total Protein 6.1 L (6.3-8.3) g/dL Albumin 3.2 L (3.5-5.0) g/dL Globulin 2.9 (2.2-3.9) gm/dL Albumin/Globulin Ratio 1.1 Skvyv-2-Tquzubfsf % Uyqti-4-Ezxxbmaor % Beta Globulins % Gamma Globulins % Urine Albumin (PEP) % Ur Protein Fractions Blood Type A POSITIVE Antibody Screen Negative 06/12/18 06/11/18 06/11/18 Range/Units 05:49 21:19 16:29 WBC 14.5 H (4.8-10.8) K/uL RBC 3.67 L (4.40-5.90) Mil/uL Hgb 7.7 L (12.0-18.0) g/dL Hct 24.4 L (35.0-51.0) % MCV 66.6 L (80.0-94.0) fL MCH 21.0 L (27.0-31.0) pg MCHC 31.5 L (33.0-37.0) g/dL RDW 17.2 H (11.5-14.5) % Plt Count 102 L (130-400) K/uL MPV 9.8 (7.2-11.7) fL Neut % (Auto) 74.7 (50.0-75.0) % Lymph % (Auto) 13.0 L (20.0-40.0) % Sunflower % (Auto) 8.8 (0.0-10.0) % Eos % (Auto) 2.9 (0.0-4.0) % Baso % (Auto) 0.6 (0.0-2.0) % Neut # (Auto) 10.8 H (1.8-7.0) K/uL Lymph # (Auto) 1.9 (1.0-4.3) K/uL Sunflower # (Auto) 1.3 H (0.0-0.8) K/uL Eos # (Auto) 0.4 (0.0-0.7) K/uL Baso # (Auto) 0.1 (0.0-0.2) K/uL Neutrophils % (Manual) (50-75) % Band Neutrophils % (0-2) % Lymphocytes % (Manual) (20-40) % Monocytes % (Manual) (0-10) % Eosinophils % (Manual) (0-4) % Platelet Estimate (NORMAL) Hypochromasia (manual) Anisocytosis (manual) Microcytosis (manual) Ovalocytes Sodium (132-148) mmol/L Potassium (3.6-5.2) mmol/L Chloride (98-107) mmol/L Carbon Dioxide (22-30) mmol/L Anion Gap (10-20) BUN (9-20) mg/dL Creatinine (0.8-1.5) mg/dL Est GFR ( Amer) Est GFR (Non-Af Amer) POC Glucose (mg/dL) 209 H 278 H (65-110) mg/dL Random Glucose (75-110) mg/dL Calcium (8.6-10.4) mg/dl Phosphorus (2.5-4.5) mg/dL Magnesium (1.6-2.3) mg/dL Total Bilirubin (0.2-1.3) mg/dL AST (17-59) U/L ALT (21-72) U/L Alkaline Phosphatase (38-126) U/L Total Protein (6.3-8.3) g/dL Albumin (3.5-5.0) g/dL Globulin (2.2-3.9) gm/dL Albumin/Globulin Ratio Bjgzd-8-Uhkevukxf % Dvoxs-9-Nyvkiqeri % Beta Globulins % Gamma Globulins % Urine Albumin (PEP) % Ur Protein Fractions Blood Type Antibody Screen 06/11/18 06/11/18 06/08/18 Range/Units 11:15 10:48 09:10 WBC (4.8-10.8) K/uL RBC (4.40-5.90) Mil/uL Hgb (12.0-18.0) g/dL Hct (35.0-51.0) % MCV (80.0-94.0) fL MCH (27.0-31.0) pg MCHC (33.0-37.0) g/dL RDW (11.5-14.5) % Plt Count (130-400) K/uL MPV (7.2-11.7) fL Neut % (Auto) (50.0-75.0) % Lymph % (Auto) (20.0-40.0) % Sunflower % (Auto) (0.0-10.0) % Eos % (Auto) (0.0-4.0) % Baso % (Auto) (0.0-2.0) % Neut # (Auto) (1.8-7.0) K/uL Lymph # (Auto) (1.0-4.3) K/uL Sunflower # (Auto) (0.0-0.8) K/uL Eos # (Auto) (0.0-0.7) K/uL Baso # (Auto) (0.0-0.2) K/uL Neutrophils % (Manual) 85 H (50-75) % Band Neutrophils % 2 (0-2) % Lymphocytes % (Manual) 7 L (20-40) % Monocytes % (Manual) 5 (0-10) % Eosinophils % (Manual) 1 (0-4) % Platelet Estimate Decreased L (NORMAL) Hypochromasia (manual) Moderate Anisocytosis (manual) Slight Microcytosis (manual) Moderate Ovalocytes Moderate Sodium (132-148) mmol/L Potassium (3.6-5.2) mmol/L Chloride (98-107) mmol/L Carbon Dioxide (22-30) mmol/L Anion Gap (10-20) BUN (9-20) mg/dL Creatinine (0.8-1.5) mg/dL Est GFR ( Amer) Est GFR (Non-Af Amer) POC Glucose (mg/dL) 233 H (65-110) mg/dL Random Glucose (75-110) mg/dL Calcium (8.6-10.4) mg/dl Phosphorus (2.5-4.5) mg/dL Magnesium (1.6-2.3) mg/dL Total Bilirubin (0.2-1.3) mg/dL AST (17-59) U/L ALT (21-72) U/L Alkaline Phosphatase (38-126) U/L Total Protein (6.3-8.3) g/dL Albumin (3.5-5.0) g/dL Globulin (2.2-3.9) gm/dL Albumin/Globulin Ratio 1.82 Gbjif-2-Tpadrfmpa 7.6 % Urpoy-5-Uzjzalbqf 5.9 % Beta Globulins 11.2 % Gamma Globulins 10.8 % Urine Albumin (PEP) 64.5 % Ur Protein Fractions See note Blood Type Antibody Screen Laboratory Results - last 24 hr 06/08/18 06/11/18 06/11/18 09:10 10:48 11:15 WBC RBC Hgb Hct MCV MCH MCHC RDW Plt Count MPV Neut % (Auto) Lymph % (Auto) Sunflower % (Auto) Eos % (Auto) Baso % (Auto) Neut # (Auto) Lymph # (Auto) Sunflower # (Auto) Eos # (Auto) Baso # (Auto) Neutrophils % (Manual) 85 H Band Neutrophils % 2 Lymphocytes % (Manual) 7 L Monocytes % (Manual) 5 Eosinophils % (Manual) 1 Platelet Estimate Decreased L Hypochromasia (manual) Moderate Anisocytosis (manual) Slight Microcytosis (manual) Moderate Ovalocytes Moderate Sodium Potassium Chloride Carbon Dioxide Anion Gap BUN Creatinine Est GFR ( Amer) Est GFR (Non-Af Amer) POC Glucose (mg/dL) 233 H Random Glucose Calcium Phosphorus Magnesium Total Bilirubin AST ALT Alkaline Phosphatase Total Protein Albumin Globulin Albumin/Globulin Ratio 1.82 Hwkpp-2-Txvnkudbm 7.6 Btnwi-0-Blwpmggwk 5.9 Beta Globulins 11.2 Gamma Globulins 10.8 Urine Albumin (PEP) 64.5 Ur Protein Fractions See note Blood Type Antibody Screen 06/11/18 06/11/18 06/12/18 16:29 21:19 05:49 WBC 14.5 H RBC 3.67 L Hgb 7.7 L Hct 24.4 L MCV 66.6 L MCH 21.0 L MCHC 31.5 L RDW 17.2 H Plt Count 102 L MPV 9.8 Neut % (Auto) 74.7 Lymph % (Auto) 13.0 L Sunflower % (Auto) 8.8 Eos % (Auto) 2.9 Baso % (Auto) 0.6 Neut # (Auto) 10.8 H Lymph # (Auto) 1.9 Sunflower # (Auto) 1.3 H Eos # (Auto) 0.4 Baso # (Auto) 0.1 Neutrophils % (Manual) Band Neutrophils % Lymphocytes % (Manual) Monocytes % (Manual) Eosinophils % (Manual) Platelet Estimate Hypochromasia (manual) Anisocytosis (manual) Microcytosis (manual) Ovalocytes Sodium Potassium Chloride Carbon Dioxide Anion Gap BUN Creatinine Est GFR ( Amer) Est GFR (Non-Af Amer) POC Glucose (mg/dL) 278 H 209 H Random Glucose Calcium Phosphorus Magnesium Total Bilirubin AST ALT Alkaline Phosphatase Total Protein Albumin Globulin Albumin/Globulin Ratio Cnjek-2-Xjttqlegd Arvhu-0-Inmkvmbyw Beta Globulins Gamma Globulins Urine Albumin (PEP) Ur Protein Fractions Blood Type Antibody Screen 06/12/18 06/12/18 06/12/18 05:49 05:49 07:04 WBC RBC Hgb Hct MCV MCH MCHC RDW Plt Count MPV Neut % (Auto) Lymph % (Auto) Sunflower % (Auto) Eos % (Auto) Baso % (Auto) Neut # (Auto) Lymph # (Auto) Sunflower # (Auto) Eos # (Auto) Baso # (Auto) Neutrophils % (Manual) Band Neutrophils % Lymphocytes % (Manual) Monocytes % (Manual) Eosinophils % (Manual) Platelet Estimate Hypochromasia (manual) Anisocytosis (manual) Microcytosis (manual) Ovalocytes Sodium 134 Potassium 3.7 Chloride 100 Carbon Dioxide 21 L Anion Gap 17 BUN 83 H Creatinine 7.1 H Est GFR ( Amer) 9 Est GFR (Non-Af Amer) 7 POC Glucose (mg/dL) 165 H Random Glucose 173 H Calcium 7.6 L Phosphorus 4.4 Magnesium 2.3 Total Bilirubin 0.8 AST 21 ALT 34 Alkaline Phosphatase 135 H D Total Protein 6.1 L Albumin 3.2 L Globulin 2.9 Albumin/Globulin Ratio 1.1 Wtwbm-4-Zywgojobs Xdehb-9-Uhggntloa Beta Globulins Gamma Globulins Urine Albumin (PEP) Ur Protein Fractions Blood Type A POSITIVE Antibody Screen Negative Radiology Impressions: Radiology Impressions Abdomen/Pelvis CT 06/10/18 09:16 IMPRESSION: Examination limited by motion as well as lack of oral and IV contrast. Small bibasilar infiltrates/edema. Small bilateral pleural effusions and associated consolidations. Nonobstructive bowel containing left inguinal hernia. Nodular hypertrophy left adrenal gland. Ramsay catheter within a decompressed thick-walled urinary bladder. Air within the urinary bladder presumably due to recent instrumentation. Additional findings as above. Fingerstick Blood Sugar Results: 165 Review of Systems - Constitutional Constitutional: absent: Fever, Chills, Sweats - EENT Eyes: UNREMARKABLE Ears: UNREMARKABLE Nose/Mouth/Throat: UNREMARKABLE - Cardiovascular Cardiovascular: UNREMARKABLE - Respiratory Respiratory: UNREMARKABLE - Gastrointestinal Gastrointestinal: UNREMARKABLE - Genitourinary Genitourinary: UNREMARKABLE - Musculoskeletal Musculoskeletal: UNREMARKABLE - Integumentary Integumentary: UNREMARKABLE - Neurological Neurological: UNREMARKABLE - Psychiatric Psychiatric: UNREMARKABLE - Endocrine Endocrine: UNREMARKABLE - Hematologic/Lymphatic Hematologic: UNREMARKABLE Critical Care Progress Note - Extremities/Vascular Does the Patient have a Central Venous Catheter?: No Does the Patient need a Central Venous Catheter?: No Does the Patient have a Ramsay Catheter?: No Does the Patient need a Ramsay Catheter?: No - Prophylaxis GI Prophylaxis GI: PPI - Prophylaxis DVT Prophylaxis DVT: Heparin SQ, SCDs - Nutrition Nutrition: Nutrition Category Date Time Status NPO Diet [DIET] Diets 06/12/18 Breakfast Active Assessment/Plan - Assessment and Plan (Free Text) Assessment: 83 M w/ PMHx of SBO, renal insufficiency, HF transferred to ICU for SOB/ pulmonary edema; platlets normalizing, Cr uptremding, klebsiella bacteremia, in itially supposed to go to [facility] 06/12, however due to bacteremia changed to nettie catheter Plan: Neuro: - A&O x 3 Cardiac: - elevated trops; likely due to pulmonary congestion - EKG: sinus w/ 1st degree block - Echo: EF 55-60%, normal systolic fxn, trace aortic reguirgiation, moderate mitral regurgitation, severe pulmonary HTN - Hx of HTN, increase norvasc to 10 mg PO daily, hydralizine 10 mg PO TID, HCTZ 25 mg PO daily, Lasix 40 mg IV BID, metoprolol 50 mg PO BID - aspirin 81 mg po daily - crestor 10 mg daily - possible cardiac cath prior to discharge per cardio Pulm - CXR 06/11: no infiltrate observed, improved pulmonary congestion from 06/09; will await official read GI - admitted for SBO, resolved via NGT; removed 06/09, denies N/V - CT abd/pelv (06/10): Small bibasilar infiltrates/edema. Small bilateral pleural effusions and associated consolidations. 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 Evans vascular for dialysis placement - vein mapping - OR today for nettie cath (no longer permcath due to gram (-) rods) - c/w cozaar 100 mg PO daily, HCTZ 25 mg PO daily Endo - hx of diabetes - ISS Heme - H/H 7.7/24.7 - possibly due to CKD5 - per nephro procrit 10k SC MWF - will transfuse 2 X PRBC w/ dialysis in preparation for cardiac cath ID - CT abd/pelv (06/10): Small bibasilar infiltrates/edema. Small bilateral pleural effusions and associated consolidations - Afebrile > 24H, WBC downtrending to 14.5 - Blood culture 06/10 - gram negative rods- klebsiella, sensitive to meropenum - F/u repeat B/C from 06/11 - Zosyn 2.25 gm Q6H (06/10) switched to meropenum (06/12) - 1 X Vanc on 06/10 PPx - Protonix 20 for GI ppx - DVT ppx: SCDs, Heparin 5000 units Q8 (held prior to OR) <Hector Alicia - Last Filed: 06/12/18 16:46> CCU Subjective - Physician Review Critical Care Time Spent (in minutes): 45 CCU Objective - Vital Signs / Intake & Output Vital Signs (Last 4 hours): Vital Signs Pulse Resp BP Pulse Ox 06/12/18 13:09 67 13 156/63 H 98 Intake and Output (Last 8hrs): Intake & Output 06/12/18 06/12/18 06/12/18 06:59 14:59 22:59 Intake Total 50 50 Output Total 500 Balance -450 50 Intake: IV 50 Intake, IV Amount 50 Right Antecubital 50 Oral 0 0 Output: Urine 500 Urine, Voided 500 Stool 0 - Medications Active Medications: Active Medications Generic Name Dose Route Start Last Admin Trade Name Freq PRN Reason Stop Dose Admin Amlodipine Besylate 10 mg 06/10/18 10:00 06/11/18 12:39 Norvasc PO 10 mg DAILY [facility] Administration Aspirin 81 mg 06/06/18 10:00 06/11/18 10:00 Ecotrin PO Not Given DAILY [facility] Epoetin Manny 10,000 unit 06/10/18 09:00 06/12/18 11:22 Procrit SC 10,000 unit MWF [facility] Administration Furosemide 40 mg 06/09/18 20:00 06/12/18 11:22 Lasix IVP 40 mg BID [facility] Administration Heparin Sodium (Porcine) 5,000 units 06/10/18 16:00 06/11/18 21:05 Heparin SC 5,000 units Q8 [facility] Administration Hydralazine HCl 10 mg 06/12/18 14:00 Apresoline PO QID [facility] Hydrochlorothiazide 25 mg 06/08/18 10:00 06/11/18 10:00 Hydrodiuril PO 25 mg DAILY [facility] Administration Meropenem 500 mg/ Sodium 100 mls @ 100 mls/hr 06/12/18 14:00 06/12/18 15:43 Chloride IVPB 100 mls/hr Q24H [facility] Administration Protocol Insulin Aspart 0 unit 06/10/18 16:30 06/12/18 11:16 Novolog SC Not Given ACHS [facility] Protocol Insulin Detemir 10 unit 06/10/18 17:45 06/12/18 11:15 Levemir SC Not Given DAILY [facility] Losartan Potassium 100 mg 06/07/18 10:00 06/11/18 12:39 Cozaar PO 100 mg DAILY [facility] Administration Metoprolol Tartrate 50 mg 06/07/18 10:00 06/12/18 11:15 Lopressor PO Not Given BID [facility] Multivitamins 1 tab 06/07/18 10:00 06/11/18 12:37 Hexavitamin PO 1 tab DAILY [facility] Administration Pantoprazole Sodium 20 mg 06/12/18 10:00 Protonix Ec Tab PO DAILY [facility] Rosuvastatin Calcium 10 mg 06/06/18 22:00 06/11/18 21:05 Crestor PO 10 mg HS [facility] Administration - Patient Studies Lab Studies: Microbiology Studies 06/10/18 10:36 Blood Culture - Final Blood Klebsiella Pneumoniae Ssp Pneu Gram Stain - Final 06/07/18 21:49 Blood Culture - Preliminary Blood-Venous NO GROWTH AFTER 4 DAYS 06/07/18 21:49 Blood Culture - Preliminary Blood-Venous NO GROWTH AFTER 4 DAYS Lab Studies 06/12/18 06/12/18 06/12/18 Range/Units 16:33 11:20 07:04 WBC (4.8-10.8) K/uL RBC (4.40-5.90) Mil/uL Hgb (12.0-18.0) g/dL Hct (35.0-51.0) % MCV (80.0-94.0) fL MCH (27.0-31.0) pg MCHC (33.0-37.0) g/dL RDW (11.5-14.5) % Plt Count (130-400) K/uL MPV (7.2-11.7) fL Neut % (Auto) (50.0-75.0) % Lymph % (Auto) (20.0-40.0) % Sunflower % (Auto) (0.0-10.0) % Eos % (Auto) (0.0-4.0) % Baso % (Auto) (0.0-2.0) % Neut # (Auto) (1.8-7.0) K/uL Lymph # (Auto) (1.0-4.3) K/uL Sunflower # (Auto) (0.0-0.8) K/uL Eos # (Auto) (0.0-0.7) K/uL Baso # (Auto) (0.0-0.2) K/uL Sodium (132-148) mmol/L Potassium (3.6-5.2) mmol/L Chloride (98-107) mmol/L Carbon Dioxide (22-30) mmol/L Anion Gap (10-20) BUN (9-20) mg/dL Creatinine (0.8-1.5) mg/dL Est GFR ( Amer) Est GFR (Non-Af Amer) POC Glucose (mg/dL) 157 H 146 H 165 H (65-110) mg/dL Random Glucose (75-110) mg/dL Calcium (8.6-10.4) mg/dl Phosphorus (2.5-4.5) mg/dL Magnesium (1.6-2.3) mg/dL Total Bilirubin (0.2-1.3) mg/dL AST (17-59) U/L ALT (21-72) U/L Alkaline Phosphatase (38-126) U/L Total Protein (6.3-8.3) g/dL Albumin (3.5-5.0) g/dL Globulin (2.2-3.9) gm/dL Albumin/Globulin Ratio (1.0-2.1) Blood Type Antibody Screen 06/12/18 06/12/18 06/12/18 Range/Units 05:49 05:49 05:49 WBC 14.5 H (4.8-10.8) K/uL RBC 3.67 L (4.40-5.90) Mil/uL Hgb 7.7 L (12.0-18.0) g/dL Hct 24.4 L (35.0-51.0) % MCV 66.6 L (80.0-94.0) fL MCH 21.0 L (27.0-31.0) pg MCHC 31.5 L (33.0-37.0) g/dL RDW 17.2 H (11.5-14.5) % Plt Count 102 L (130-400) K/uL MPV 9.8 (7.2-11.7) fL Neut % (Auto) 74.7 (50.0-75.0) % Lymph % (Auto) 13.0 L (20.0-40.0) % Sunflower % (Auto) 8.8 (0.0-10.0) % Eos % (Auto) 2.9 (0.0-4.0) % Baso % (Auto) 0.6 (0.0-2.0) % Neut # (Auto) 10.8 H (1.8-7.0) K/uL Lymph # (Auto) 1.9 (1.0-4.3) K/uL Sunflower # (Auto) 1.3 H (0.0-0.8) K/uL Eos # (Auto) 0.4 (0.0-0.7) K/uL Baso # (Auto) 0.1 (0.0-0.2) K/uL Sodium 134 (132-148) mmol/L Potassium 3.7 (3.6-5.2) mmol/L Chloride 100 (98-107) mmol/L Carbon Dioxide 21 L (22-30) mmol/L Anion Gap 17 (10-20) BUN 83 H (9-20) mg/dL Creatinine 7.1 H (0.8-1.5) mg/dL Est GFR ( Amer) 9 Est GFR (Non-Af Amer) 7 POC Glucose (mg/dL) (65-110) mg/dL Random Glucose 173 H (75-110) mg/dL Calcium 7.6 L (8.6-10.4) mg/dl Phosphorus 4.4 (2.5-4.5) mg/dL Magnesium 2.3 (1.6-2.3) mg/dL Total Bilirubin 0.8 (0.2-1.3) mg/dL AST 21 (17-59) U/L ALT 34 (21-72) U/L Alkaline Phosphatase 135 H D (38-126) U/L Total Protein 6.1 L (6.3-8.3) g/dL Albumin 3.2 L (3.5-5.0) g/dL Globulin 2.9 (2.2-3.9) gm/dL Albumin/Globulin Ratio 1.1 (1.0-2.1) Blood Type A POSITIVE Antibody Screen Negative 06/11/18 Range/Units 21:19 WBC (4.8-10.8) K/uL RBC (4.40-5.90) Mil/uL Hgb (12.0-18.0) g/dL Hct (35.0-51.0) % MCV (80.0-94.0) fL MCH (27.0-31.0) pg MCHC (33.0-37.0) g/dL RDW (11.5-14.5) % Plt Count (130-400) K/uL MPV (7.2-11.7) fL Neut % (Auto) (50.0-75.0) % Lymph % (Auto) (20.0-40.0) % Sunflower % (Auto) (0.0-10.0) % Eos % (Auto) (0.0-4.0) % Baso % (Auto) (0.0-2.0) % Neut # (Auto) (1.8-7.0) K/uL Lymph # (Auto) (1.0-4.3) K/uL Sunflower # (Auto) (0.0-0.8) K/uL Eos # (Auto) (0.0-0.7) K/uL Baso # (Auto) (0.0-0.2) K/uL Sodium (132-148) mmol/L Potassium (3.6-5.2) mmol/L Chloride (98-107) mmol/L Carbon Dioxide (22-30) mmol/L Anion Gap (10-20) BUN (9-20) mg/dL Creatinine (0.8-1.5) mg/dL Est GFR ( Amer) Est GFR (Non-Af Amer) POC Glucose (mg/dL) 209 H (65-110) mg/dL Random Glucose (75-110) mg/dL Calcium (8.6-10.4) mg/dl Phosphorus (2.5-4.5) mg/dL Magnesium (1.6-2.3) mg/dL Total Bilirubin (0.2-1.3) mg/dL AST (17-59) U/L ALT (21-72) U/L Alkaline Phosphatase (38-126) U/L Total Protein (6.3-8.3) g/dL Albumin (3.5-5.0) g/dL Globulin (2.2-3.9) gm/dL Albumin/Globulin Ratio (1.0-2.1) Blood Type Antibody Screen Laboratory Results - last 24 hr 06/11/18 06/12/18 06/12/18 21:19 05:49 05:49 WBC 14.5 H RBC 3.67 L Hgb 7.7 L Hct 24.4 L MCV 66.6 L MCH 21.0 L MCHC 31.5 L RDW 17.2 H Plt Count 102 L MPV 9.8 Neut % (Auto) 74.7 Lymph % (Auto) 13.0 L Sunflower % (Auto) 8.8 Eos % (Auto) 2.9 Baso % (Auto) 0.6 Neut # (Auto) 10.8 H Lymph # (Auto) 1.9 Sunflower # (Auto) 1.3 H Eos # (Auto) 0.4 Baso # (Auto) 0.1 Sodium 134 Potassium 3.7 Chloride 100 Carbon Dioxide 21 L Anion Gap 17 BUN 83 H Creatinine 7.1 H Est GFR ( Amer) 9 Est GFR (Non-Af Amer) 7 POC Glucose (mg/dL) 209 H Random Glucose 173 H Calcium 7.6 L Phosphorus 4.4 Magnesium 2.3 Total Bilirubin 0.8 AST 21 ALT 34 Alkaline Phosphatase 135 H D Total Protein 6.1 L Albumin 3.2 L Globulin 2.9 Albumin/Globulin Ratio 1.1 Blood Type Antibody Screen 06/12/18 06/12/18 06/12/18 05:49 07:04 11:20 WBC RBC Hgb Hct MCV MCH MCHC RDW Plt Count MPV Neut % (Auto) Lymph % (Auto) Sunflower % (Auto) Eos % (Auto) Baso % (Auto) Neut # (Auto) Lymph # (Auto) Sunflower # (Auto) Eos # (Auto) Baso # (Auto) Sodium Potassium Chloride Carbon Dioxide Anion Gap BUN Creatinine Est GFR ( Amer) Est GFR (Non-Af Amer) POC Glucose (mg/dL) 165 H 146 H Random Glucose Calcium Phosphorus Magnesium Total Bilirubin AST ALT Alkaline Phosphatase Total Protein Albumin Globulin Albumin/Globulin Ratio Blood Type A POSITIVE Antibody Screen Negative 06/12/18 16:33 WBC RBC Hgb Hct MCV MCH MCHC RDW Plt Count MPV Neut % (Auto) Lymph % (Auto) Sunflower % (Auto) Eos % (Auto) Baso % (Auto) Neut # (Auto) Lymph # (Auto) Sunflower # (Auto) Eos # (Auto) Baso # (Auto) Sodium Potassium Chloride Carbon Dioxide Anion Gap BUN Creatinine Est GFR ( Amer) Est GFR (Non-Af Amer) POC Glucose (mg/dL) 157 H Random Glucose Calcium Phosphorus Magnesium Total Bilirubin AST ALT Alkaline Phosphatase Total Protein Albumin Globulin Albumin/Globulin Ratio Blood Type Antibody Screen Radiology Impressions: Radiology Impressions Chest X-Ray 06/11/18 06:58 IMPRESSION: No active disease. Resolved pulmonary edema identified previously Critical Care Progress Note - Nutrition Nutrition: Nutrition Category Date Time Status Renal Diet [DIET] Diets 06/12/18 Dinner Active Attending/Attestation - Attestation I have personally seen and examined this patient.: Yes I have fully participated in the care of the patient.: Yes I have reviewed all pertinent clinical information: Yes Notes (Text): 06/12/18 16:45 Patient seen and examined in the intensive care unit. Status post dialysis catheter insertion Hemodialysis Possible cardiac cath on Sunday Continue present treatment
--- NOTE | 2018-06-12 11:56 | RAD ---
Date of service: 06/11/2018 HISTORY: flash pulmonary edema COMPARISON: 06/09/2018 and 06/10/2018 serial chest radiographs FINDINGS: LUNGS: No active pulmonary disease. PLEURA: No significant pleural effusion identified, no pneumothorax apparent. CARDIOVASCULAR: No radiographic findings to suggest acute or significant cardiovascular disease. Atherosclerotic calcifications identified primarily aortic arch. OSSEOUS STRUCTURES: No significant abnormalities. VISUALIZED UPPER ABDOMEN: Normal. OTHER FINDINGS: None. IMPRESSION: No active disease. Resolved pulmonary edema identified previously
[2018-06-12] MEDS ORDERED: Potassium Chloride 20 mEq ER Tab PO ONE (12:45)
[2018-06-12] MEDS ORDERED: Meropenem 500 MG in Sodium Chloride 0.9% 100 ML IVPB SCH (14:00)
[2018-06-12] MEDS ORDERED: Lidocaine Hydrochloride 0 ML INJ ONE (15:59)
[2018-06-12] MEDS ORDERED: HEPARIN-NS 5,000 UNITS/500 ML 5,000 UNIT/500 ML BAG IV ONE (15:59)
[2018-06-12] MEDS ORDERED: Midazolam 2 MG/2 ML VIAL ONE (16:01)
--- NOTE | 2018-06-12 16:24 | PCM.SURG1 ---
Surgeon's Initial Post Op Note - Surgeon's Notes Surgeon: Dr. Evans Switchman Supervisor: Dr. Leavitt PGY-4 Type of Anesthesia: IV Sedation, Local Pre-Operative Diagnosis: Renal failure requiring dialysis Operative Findings: placement confirmed via fluoro Post-Operative Diagnosis: Renal failure requiring dialysis Operation Performed: Right IJ Dialysis catheter placement Specimen/Specimens Removed: none Estimated Blood Loss: EBL {In ML}: 20 Blood Products Given: N/A Drains Used: No Drains Post-Op Condition: Fair Date of Surgery/Procedure: 06/12/18 Time of Surgery/Procedure: 16:24
--- NOTE | 2018-06-12 17:22 | RAD ---
HISTORY: s/p Right IJ [place] COMPARISON: Chest x-ray performed 06/11/18 TECHNIQUE: Chest, one view. FINDINGS: LUNGS: External artifact limits evaluation of the right lung apex. Right IJ approach catheter extends to the right atrium. Patchy atelectasis or infiltrate within the medial inferior aspect of the right upper lobe. PLEURA: No significant pleural effusion identified. No definite pneumothorax . CARDIOVASCULAR: Cardiomegaly. Atherosclerotic calcifications present. OSSEOUS STRUCTURES: Degenerative changes. VISUALIZED UPPER ABDOMEN: Elevation of the right hemithorax. OTHER FINDINGS: None. IMPRESSION: External artifact limits evaluation of the right lung apex. Right IJ approach catheter extends to the right atrium. Patchy atelectasis or infiltrate within the medial inferior aspect of the right upper lobe. Cardiomegaly.
[2018-06-12] MEDS: Multiple Vitamins Tab PO SCH (18:52)
[2018-06-12] MEDS: Pantoprazole 20 mg EC Tab PO SCH (18:58)
--- NOTE | 2018-06-13 01:09 | PN ---
DATE: 06/12/2018 LOCATION: The patient is located in ICU, Room 3. REQUESTED BY: Dr. Ana Noel. REASON FOR RENAL FOLLOWUP: Acute renal failure, chronic kidney disease, for initiation of the renal replacement therapy. SUBJECTIVE: Mr. 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 The patient was initially admitted for small bowel obstruction and status post NG tube placement and Gumco suction. His symptoms improved with low Gumco suction and started on clear liquids. Subsequently, the patient underwent into flash pulmonary edema requiring initiation of the IV nitro, IV Lasix and BiPAP machine. His symptoms improved and his hospital course complicated by fever on 06/09/2018 and blood culture was drawn during the febrile period and blood culture is positive for Klebsiella pneumonia. The patient is on IV antibiotic. The patient is not in acute distress. Denies any chest pain or palpitation. Denies any fever or cough. No abdominal pain. No nausea, vomiting. His renal function is slowly deteriorating and the patient agreed for initiation of the renal replacement therapy and signed the consent for the Augie catheter placement and also for the hemodialysis placement. The patient is not in distress. The patient is being dialyzed. PHYSICAL EXAMINATION: VITAL SIGNS: As follows: Blood pressure 166/77, pulse 72, respirations 14, temperature 96.9, saturation 100%. Height 5 feet 4 inches and weight 164 pounds. GENERAL: Mr. Irving is an 83 years old elderly male, moderately built, moderately nourished, not in acute distress. HEENT: Pupils normal, react to light and accommodation. Conjunctivae pale. Sclerae anicteric. Tongue is moist and trachea is midline. LUNGS: Symmetric on both sides. Bilateral breath sounds present. Clear to auscultation. CARDIOVASCULAR SYSTEM: [place] at the fifth intercostal space, midclavicular line. S1, S2 audible. No murmur or gallop. ABDOMEN: Normal in appearance. Soft, tympanitic. No guarding, no rigidity. No hepatosplenomegaly. CENTRAL NERVOUS SYSTEM: The patient is alert, awake, oriented x3. Nonfocal neuro examination. Cranial nerves II-XII grossly intact. Sensory and motor system is within normal limits. EXTREMITIES: No cyanosis, no clubbing, no edema. CURRENT MEDICATIONS: Include as follows: Hydralazine 10 mg p.o. four times a day, losartan 100 mg p.o. daily, Crestor 10 mg at bedtime, aspirin 81 mg daily, subcu heparin on hold, multivitamin 1 tablet daily, hydrochlorothiazide 25 mg p.o. daily, Lasix 40 mg IV b.i.d., Levemir 10 units subcu daily, Lopressor 50 mg p.o. b.i.d., meropenem 500 mg IV every 24 hours, Norvasc 10 mg daily, NovoLog for sliding scale, Epogen 10,000 units subcu three times a week, and Protonix 20 mg p.o. daily. LABORATORY DATA: Includes as follows: As of 06/12/2018, WBC 14.5, hemoglobin 7.7, hematocrit is 24.4, platelets 102 and sodium 134, potassium 3.7, chloride 100, CO2 of 21, BUN 83, creatinine 7.1 and glucose is 173, calcium 7.6, phosphorus 4.4, magnesium 2.3. Total bili 0.3, AST 21, ALT 34, alkaline phosphatase 135, total protein 6.1, albumin is 3.2. His blood culture report as of 06/10/2018, positive for Klebsiella pneumonia. ASSESSMENT: In summary, Mr. 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 Due to worsening renal function, his baseline creatinine was 4.2 in 03/2018 and the patient was admitted with a creatinine 5 and small bowel obstruction and also his hospital course complicated by flash pulmonary edema and also elevated troponin levels, status post transfusion of 2 units during his initial admission with worsening renal function and blood culture from 06/10/2018 positive for Klebsiella pneumonia. 1. Acute renal failure on chronic kidney disease. 2. Gram-negative sepsis. 3. 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 4. Hypertension. 5. Diabetes. 6. Status post flash pulmonary edema. 7. Pulmonary hypertension. PLAN: The patient agreed for initiation of the renal replacement therapy. Requested Augie catheter placement at this time due to recent gram-negative sepsis, and we will wait for PermCath until the blood cultures are negative and white count is improved. The patient is being dialyzed at this time and we will also transfuse 1 unit of packed RBC during dialysis today and another unit tomorrow. Continue IV antibiotics for gram-negative sepsis as per the primary team and ICU, Merrem 500 mg every 24 hours. Continue his antihypertensive medication, losartan and metoprolol and also amlodipine and hydralazine. Follow up with Cardiology for further recommendation. We will follow up with you. Thank you for allowing me to participate in your patient's care. Aamir Galeano MD
--- NOTE | 2018-06-13 01:10 | OP ---
PROCEDURE DATE: 06/12/2018 PREOPERATIVE DIAGNOSIS: Renal failure. POSTOPERATIVE DIAGNOSIS: Renal failure. PROCEDURE CARRIED OUT: Placement of temporary dialysis catheter in right jugular vein with ultrasound guidance. SURGEON: Tate Evans Jr., MD BEAD WIRE TAPER: Mary Leavitt DO. ANESTHESIOLOGIST: Epi Almanza DO INDICATIONS: The patient is an 83-year-old man with renal insufficiency, who now requires urgent dialysis. OPERATIVE FINDINGS: Catheter was inserted uneventfully via the jugular vein. DESCRIPTION OF PROCEDURE: The patient was given local anesthesia. Using ultrasound guidance and micropuncture technique, the right jugular vein was punctured under fluoroscopic control. The guidewire was advanced centrally. This was initially punctured with micropuncture kit. This was exchanged with an 0.035 wire, and the catheter was positioned appropriately. This was flushed with heparinized saline with good return. There were no operative complications or problems. It was secured to the skin with sutures. It originated on the right jugular vein and terminated in the superior vena cava. Tate Evans Jr., MD
[2018-06-13 06:20] LABS: BASO # 0.1 K/uL (0.0-0.2); EOS # 0.5 K/uL (0.0-0.7); EOS % 4.4 % (0.0-4.0); HEMOGLOBIN 9.6 g/dL (12.0-18.0); LYMPH # 1.4 K/uL (1.0-4.3); LYMPH % 12.2 % (20.0-40.0); MEAN CELL VOLUME 68.8 fL (80.0-94.0); MEAN CORPUSCULAR HEMOGLOBIN 21.8 pg (27.0-31.0); MEAN CORPUSCULAR HGB CONC 31.7 g/dL (33.0-37.0); MEAN PLATELET VOLUME 9.5 fL (7.2-11.7); MONO # 1.2 K/uL (0.0-0.8); MONO % 10.5 % (0.0-10.0); NEUT # 8.1 K/uL (1.8-7.0); NEUT % 71.9 % (50.0-75.0); NRBC % 0.1 % (0.0-2.0); RBC 4.42 Mil/uL (4.40-5.90); RED CELL DISTRIBUTION WIDTH 25.2 % (11.5-14.5); WHITE BLOOD COUNT 11.2 K/uL (4.8-10.8)
[2018-06-13 06:36] LABS: ALB/GLOB RATIO 1.2 (1.0-2.1); ALBUMIN 3.6 g/dL (3.5-5.0); CALCIUM 8.1 mg/dl (8.6-10.4)
[2018-06-13] MEDS: (Novolog) Insulin Aspart, Recombinant 100 u/ml 10 ml vial SC SCH ×5 (07:58→21:37)
[2018-06-13] MEDS ORDERED: Potassium Chloride 20 mEq ER Tab PO ONE (08:06)
--- NOTE | 2018-06-13 08:56 | CP.PCM.PN ---
Subjective - Date & Time of Evaluation Date of Evaluation: 06/13/18 Time of Evaluation: 06:45 - Subjective Subjective: Vascular Surgery: Dr. Evans Pt seen and examined. No acute overnight events. States he feels well and denies any complaints at this time. Pt is tolerating regular diet and having BMs/flatus. Admits to ambulating. Denies fevers/chills. Objective - Vital Signs/Intake and Output Vital Signs (last 24 hours): Temp Pulse Resp BP Pulse Ox 99.1 F 75 15 162/60 H 100 06/13/18 08:00 06/13/18 08:00 06/13/18 08:00 06/13/18 07:21 06/13/18 08:00 Intake and Output: 06/13/18 06/13/18 06:59 18:59 Intake Total 325 0 Output Total 450 Balance -125 0 - Medications Medications: Current Medications Amlodipine Besylate (Norvasc) 10 mg PO DAILY [facility] Last Admin: 06/12/18 18:58 Dose: Not Given Aspirin (Ecotrin) 81 mg PO DAILY [facility] Last Admin: 06/12/18 11:00 Dose: Not Given Epoetin Manny (Procrit) 10,000 unit SC MWF [facility] Last Admin: 06/12/18 11:22 Dose: 10,000 unit Furosemide (Lasix) 40 mg IVP BID [facility] Last Admin: 06/12/18 19:46 Dose: 40 mg Heparin Sodium (Porcine) (Heparin) 5,000 units SC Q8 [facility] Last Admin: 06/11/18 21:05 Dose: 5,000 units Hydralazine HCl (Apresoline) 10 mg PO QID [facility] Last Admin: 06/12/18 22:26 Dose: 10 mg Hydrochlorothiazide (Hydrodiuril) 25 mg PO DAILY [facility] Last Admin: 06/12/18 18:53 Dose: Not Given Meropenem 500 mg/ Sodium (Chloride) 100 mls @ 100 mls/hr IVPB Q24H [facility]; Protocol Last Admin: 06/12/18 15:43 Dose: 100 mls/hr Insulin Aspart (Novolog) 0 unit SC ACHS [facility]; Protocol Last Admin: 06/13/18 07:58 Dose: Not Given Insulin Detemir (Levemir) 10 unit SC DAILY [facility] Last Admin: 02/13/19 11:15 Dose: Not Given Losartan Potassium (Cozaar) 100 mg PO DAILY [facility] Last Admin: 06/12/18 11:00 Dose: Not Given Metoprolol Tartrate (Lopressor) 50 mg PO BID [facility] Last Admin: 06/12/18 19:47 Dose: 50 mg Multivitamins (Hexavitamin) 1 tab PO DAILY [facility] Last Admin: 06/12/18 18:52 Dose: Not Given Pantoprazole Sodium (Protonix Ec Tab) 20 mg PO DAILY [facility] Last Admin: 06/12/18 18:58 Dose: Not Given Rosuvastatin Calcium (Crestor) 10 mg PO HS [facility] Last Admin: 06/12/18 22:25 Dose: 10 mg - Labs Labs: 06/13/18 06:12 06/13/18 06:12 PT 12.5 SECONDS (9.7-12.2) H 06/11/18 10:48 INR 1.1 06/11/18 10:48 APTT 57 SECONDS (21-34) H 06/11/18 10:48 - Constitutional Appears: Well, No Acute Distress - Eye Exam Eye Exam: Normal appearance - ENT Exam ENT Exam: Mucous Membranes Moist - Neck Exam Additional comments: R neck with HD catheter, dressing C/D/I - Respiratory Exam Respiratory Exam: NORMAL BREATHING PATTERN - Cardiovascular Exam Cardiovascular Exam: RRR - GI/Abdominal Exam GI & Abdominal Exam: Soft. absent: Tenderness - Extremities Exam Extremities Exam: absent: Tenderness - Neurological Exam Neurological Exam: Alert, Awake, Oriented x3 - Skin Skin Exam: Dry, Warm Assessment and Plan - Assessment and Plan (Free Text) Assessment: 83M s/p R IJ HD catheter; POD#1 Plan: - cont IV ABX - if pt still needs HD and once infection resolved; will switch out for permacath - d/w Dr. Nathan Rwoan
[2018-06-13] MEDS: Insulin Detemir 100 units/ml Vial (Levemir) SC SCH (09:35)
[2018-06-13] MEDS: Multiple Vitamins Tab PO SCH (09:36)
[2018-06-13] MEDS: Pantoprazole 20 mg EC Tab PO SCH (09:37)
--- NOTE | 2018-06-13 11:08 | RAD ---
PROCEDURE: HISTORY: As above COMPARISON: None TECHNIQUE: Total fluoroscopic time utilized during the procedure: 4.5 seconds ; 0.97927 mGy cm 2 FINDINGS: Submitted images from the current procedure: 1 Please refer to the physician's notes performing the procedure. IMPRESSION: Less than 1 hour fluoroscopic time utilized during performance of the procedure
--- NOTE | 2018-06-13 11:09 | CP.CCUPN ---
<Primo Mclain M - Last Filed: 06/13/18 13:55> CCU Subjective - Physician Review Subjective (Free Text): Critical care progress note for Dr. Blackburn. Patient seen and examined at bedside. No acute overnight events reported. Patient had 1st time dialysis yesterday with 0 ml volume removed, received 1 PRBC with transfusion. Patient has no active complaints. Patient denies chest pain, SOB, abdominal pain, diarrhea, constipation. Patient is still producing urine with no complaints. Critical Care Time Spent (in minutes): 40 CCU Objective - Vital Signs / Intake & Output Vital Signs (Last 4 hours): Vital Signs Temp Pulse Resp BP Pulse Ox 06/13/18 11:00 69 14 100 06/13/18 10:36 70 11 L 185/66 H 06/13/18 10:00 81 12 06/13/18 09:36 179/61 H 06/13/18 09:21 75 13 179/61 H 88 L 06/13/18 09:00 76 14 100 06/13/18 08:21 70 15 152/56 H 94 L 06/13/18 08:00 99.1 F 75 15 100 06/13/18 07:21 66 12 162/60 H 95 Intake and Output (Last 8hrs): Intake & Output 06/12/18 06/13/18 06/13/18 22:59 06:59 14:59 Intake Total 325 0 470 Output Total 350 450 400 Balance -25 -450 70 Weight 64 lb 6.4 oz 132 lb 12.8 oz Intake: Intake, IV Amount 0 0 0 Right Antecubital 0 0 Right Forearm 0 Right Wrist 0 Oral 0 470 Blood Product 325 Red Blood Cells Cpd As1 325 Lr Unit [id number] Output: Urine 350 450 200 Urine, Voided 350 450 200 Urine/Stool Mix 200 Other: # Voids Urine, Voided 1 1 # Bowel Movements 0 1 - Physical Exam Head: Positive for: Atraumatic, Normocephalic Pupils: Positive for: PERRL Conjunctiva: Positive for: Normal Mouth: Positive for: Moist Mucous Membranes Neck: Positive for: Normal Range of Motion, Other (L nettie cath in place, dr estephaniaing clean, dry, intact ) Respiratory/Chest: Positive for: Good Air Exchange, Rales (R > L ). Negative for: Accessory Muscle Use Cardiovascular: Positive for: Normal S1, S2 Abdomen: Positive for: Normal Bowel Sounds. Negative for: Tenderness, Distention Upper Extremity: Positive for: NORMAL PULSES, Other (Left limb alert for future AVF) Lower Extremity: Positive for: Normal Inspection. Negative for: Edema, Cyanosis Neurological: Positive for: GCS=15, Speech Normal Skin: Positive for: Warm, Normal Color Psychiatric: Positive for: Oriented x 3 - Medications Active Medications: Active Medications Generic Name Dose Route Start Last Admin Trade Name [place] PRN Reason Stop Dose Admin Amlodipine Besylate 10 mg 06/10/18 10:00 06/13/18 09:38 Norvasc PO 10 mg DAILY [facility] Administration Aspirin 81 mg 06/06/18 10:00 06/13/18 09:36 Ecotrin PO 81 mg DAILY [facility] Administration Epoetin Manny 10,000 unit 06/10/18 09:00 06/12/18 11:22 Procrit SC 10,000 unit MWF [facility] Administration Furosemide 40 mg 06/09/18 20:00 06/13/18 09:36 Lasix IVP 40 mg BID [facility] Administration Heparin Sodium (Porcine) 5,000 units 06/10/18 16:00 06/11/18 21:05 Heparin SC 5,000 units Q8 [facility] Administration Hydralazine HCl 10 mg 06/13/18 12:00 Apresoline PO Q6H [facility] Hydrochlorothiazide 25 mg 06/08/18 10:00 06/13/18 09:36 Hydrodiuril PO 25 mg DAILY [facility] Administration Ceftriaxone Sodium 1 gm/ 100 mls @ 100 mls/hr 06/13/18 15:00 Sodium Chloride IVPB Q12H [facility] Protocol Insulin Aspart 0 unit 06/10/18 16:30 06/13/18 07:58 Novolog SC Not Given ACHS [facility] Protocol Insulin Detemir 10 unit 06/10/18 17:45 06/13/18 09:35 Levemir SC 10 u DAILY [facility] Administration Losartan Potassium 100 mg 06/07/18 10:00 06/13/18 09:37 Cozaar PO 100 mg DAILY [facility] Administration Metoprolol Tartrate 50 mg 06/13/18 22:00 Lopressor PO Q12H [facility] Multivitamins 1 tab 06/07/18 10:00 06/13/18 09:36 Hexavitamin PO 1 tab DAILY [facility] Administration Pantoprazole Sodium 20 mg 06/12/18 10:00 02/14/19 09:37 Protonix Ec Tab PO 20 mg DAILY [facility] Administration Rosuvastatin Calcium 10 mg 06/06/18 22:00 06/12/18 22:25 Crestor PO 10 mg HS [facility] Administration - Patient Studies Lab Studies: Microbiology Studies 06/12/18 00:37 Blood Culture - Preliminary Blood-Venous NO GROWTH AFTER 24 HOURS 06/12/18 00:37 Blood Culture - Preliminary Blood-Venous NO GROWTH AFTER 24 HOURS 06/07/18 21:49 Blood Culture - Final Blood-Venous NO GROWTH AFTER 5 DAYS Gram Stain - Final TEST NOT PERFORMED 06/07/18 21:49 Blood Culture - Final Blood-Venous NO GROWTH AFTER 5 DAYS Gram Stain - Final TEST NOT PERFORMED 06/10/18 10:36 Blood Culture - Final Blood Klebsiella Pneumoniae Ssp Pneu Gram Stain - Final Lab Studies 06/13/18 06/13/18 06/13/18 Range/Units 07:07 06:12 06:12 WBC 11.2 H (4.8-10.8) K/uL RBC 4.42 (4.40-5.90) Mil/uL Hgb 9.6 L (12.0-18.0) g/dL Hct 30.4 L (35.0-51.0) % MCV 68.8 L D (80.0-94.0) fL MCH 21.8 L (27.0-31.0) pg MCHC 31.7 L (33.0-37.0) g/dL RDW 25.2 H (11.5-14.5) % Plt Count 145 (130-400) K/uL MPV 9.5 (7.2-11.7) fL Neut % (Auto) 71.9 (50.0-75.0) % Lymph % (Auto) 12.2 L (20.0-40.0) % [place] % (Auto) 10.5 H (0.0-10.0) % Eos % (Auto) 4.4 H (0.0-4.0) % Baso % (Auto) 1.0 (0.0-2.0) % Neut # (Auto) 8.1 H (1.8-7.0) K/uL Lymph # (Auto) 1.4 (1.0-4.3) K/uL [place] # (Auto) 1.2 H (0.0-0.8) K/uL Eos # (Auto) 0.5 (0.0-0.7) K/uL Baso # (Auto) 0.1 (0.0-0.2) K/uL Sodium 135 (132-148) mmol/L Potassium 3.5 L (3.6-5.2) mmol/L Chloride 97 L (98-107) mmol/L Carbon Dioxide 27 (22-30) mmol/L Anion Gap 14 (10-20) BUN 50 H (9-20) mg/dL Creatinine 4.7 H (0.8-1.5) mg/dL Est GFR ( Amer) 14 Est GFR (Non-Af Amer) 12 POC Glucose (mg/dL) 132 H (65-110) mg/dL Random Glucose 129 H D (75-110) mg/dL Calcium 8.1 L (8.6-10.4) mg/dl Phosphorus 4.4 (2.5-4.5) mg/dL Magnesium 2.1 (1.6-2.3) mg/dL Total Bilirubin 0.9 (0.2-1.3) mg/dL AST 34 (17-59) U/L ALT 35 (21-72) U/L Alkaline Phosphatase 213 H D (38-126) U/L Total Protein 6.7 (6.3-8.3) g/dL Albumin 3.6 (3.5-5.0) g/dL Globulin 3.1 (2.2-3.9) gm/dL Albumin/Globulin Ratio 1.2 (1.0-2.1) Blood Type Antibody Screen 06/12/18 06/12/18 06/12/18 Range/Units 21:01 16:33 11:20 WBC (4.8-10.8) K/uL RBC (4.40-5.90) Mil/uL Hgb (12.0-18.0) g/dL Hct (35.0-51.0) % MCV (80.0-94.0) fL MCH (27.0-31.0) pg MCHC (33.0-37.0) g/dL RDW (11.5-14.5) % Plt Count (130-400) K/uL MPV (7.2-11.7) fL Neut % (Auto) (50.0-75.0) % Lymph % (Auto) (20.0-40.0) % [place] % (Auto) (0.0-10.0) % Eos % (Auto) (0.0-4.0) % Baso % (Auto) (0.0-2.0) % Neut # (Auto) (1.8-7.0) K/uL Lymph # (Auto) (1.0-4.3) K/uL [place] # (Auto) (0.0-0.8) K/uL Eos # (Auto) (0.0-0.7) K/uL Baso # (Auto) (0.0-0.2) K/uL Sodium (132-148) mmol/L Potassium (3.6-5.2) mmol/L Chloride (98-107) mmol/L Carbon Dioxide (22-30) mmol/L Anion Gap (10-20) BUN (9-20) mg/dL Creatinine (0.8-1.5) mg/dL Est GFR ( Amer) Est GFR (Non-Af Amer) POC Glucose (mg/dL) 128 H 157 H 146 H (65-110) mg/dL Random Glucose (75-110) mg/dL Calcium (8.6-10.4) mg/dl Phosphorus (2.5-4.5) mg/dL Magnesium (1.6-2.3) mg/dL Total Bilirubin (0.2-1.3) mg/dL AST (17-59) U/L ALT (21-72) U/L Alkaline Phosphatase (38-126) U/L Total Protein (6.3-8.3) g/dL Albumin (3.5-5.0) g/dL Globulin (2.2-3.9) gm/dL Albumin/Globulin Ratio (1.0-2.1) Blood Type Antibody Screen 06/12/18 Range/Units 05:49 WBC (4.8-10.8) K/uL RBC (4.40-5.90) Mil/uL Hgb (12.0-18.0) g/dL Hct (35.0-51.0) % MCV (80.0-94.0) fL MCH (27.0-31.0) pg MCHC (33.0-37.0) g/dL RDW (11.5-14.5) % Plt Count (130-400) K/uL MPV (7.2-11.7) fL Neut % (Auto) (50.0-75.0) % Lymph % (Auto) (20.0-40.0) % [place] % (Auto) (0.0-10.0) % Eos % (Auto) (0.0-4.0) % Baso % (Auto) (0.0-2.0) % Neut # (Auto) (1.8-7.0) K/uL Lymph # (Auto) (1.0-4.3) K/uL [place] # (Auto) (0.0-0.8) K/uL Eos # (Auto) (0.0-0.7) K/uL Baso # (Auto) (0.0-0.2) K/uL Sodium (132-148) mmol/L Potassium (3.6-5.2) mmol/L Chloride (98-107) mmol/L Carbon Dioxide (22-30) mmol/L Anion Gap (10-20) BUN (9-20) mg/dL Creatinine (0.8-1.5) mg/dL Est GFR ( Amer) Est GFR (Non-Af Amer) POC Glucose (mg/dL) (65-110) mg/dL Random Glucose (75-110) mg/dL Calcium (8.6-10.4) mg/dl Phosphorus (2.5-4.5) mg/dL Magnesium (1.6-2.3) mg/dL Total Bilirubin (0.2-1.3) mg/dL AST (17-59) U/L ALT (21-72) U/L Alkaline Phosphatase (38-126) U/L Total Protein (6.3-8.3) g/dL Albumin (3.5-5.0) g/dL Globulin (2.2-3.9) gm/dL Albumin/Globulin Ratio (1.0-2.1) Blood Type A POSITIVE Antibody Screen Negative Laboratory Results - last 24 hr 06/12/18 06/12/18 06/12/18 05:49 11:20 16:33 WBC RBC Hgb Hct MCV MCH MCHC RDW Plt Count MPV Neut % (Auto) Lymph % (Auto) [place] % (Auto) Eos % (Auto) Baso % (Auto) Neut # (Auto) Lymph # (Auto) [place] # (Auto) Eos # (Auto) Baso # (Auto) Sodium Potassium Chloride Carbon Dioxide Anion Gap BUN Creatinine Est GFR ( Amer) Est GFR (Non-Af Amer) POC Glucose (mg/dL) 146 H 157 H Random Glucose Calcium Phosphorus Magnesium Total Bilirubin AST ALT Alkaline Phosphatase Total Protein Albumin Globulin Albumin/Globulin Ratio Blood Type A POSITIVE Antibody Screen Negative 06/12/18 06/13/18 06/13/18 21:01 06:12 06:12 WBC 11.2 H RBC 4.42 Hgb 9.6 L Hct 30.4 L MCV 68.8 L D MCH 21.8 L MCHC 31.7 L RDW 25.2 H Plt Count 145 MPV 9.5 Neut % (Auto) 71.9 Lymph % (Auto) 12.2 L [place] % (Auto) 10.5 H Eos % (Auto) 4.4 H Baso % (Auto) 1.0 Neut # (Auto) 8.1 H Lymph # (Auto) 1.4 [place] # (Auto) 1.2 H Eos # (Auto) 0.5 Baso # (Auto) 0.1 Sodium 135 Potassium 3.5 L Chloride 97 L Carbon Dioxide 27 Anion Gap 14 BUN 50 H Creatinine 4.7 H Est GFR ( Amer) 14 Est GFR (Non-Af Amer) 12 POC Glucose (mg/dL) 128 H Random Glucose 129 H D Calcium 8.1 L Phosphorus 4.4 Magnesium 2.1 Total Bilirubin 0.9 AST 34 ALT 35 Alkaline Phosphatase 213 H D Total Protein 6.7 Albumin 3.6 Globulin 3.1 Albumin/Globulin Ratio 1.2 Blood Type Antibody Screen 06/13/18 07:07 WBC RBC Hgb Hct MCV MCH MCHC RDW Plt Count MPV Neut % (Auto) Lymph % (Auto) [place] % (Auto) Eos % (Auto) Baso % (Auto) Neut # (Auto) Lymph # (Auto) [place] # (Auto) Eos # (Auto) Baso # (Auto) Sodium Potassium Chloride Carbon Dioxide Anion Gap BUN Creatinine Est GFR ( Amer) Est GFR (Non-Af Amer) POC Glucose (mg/dL) 132 H Random Glucose Calcium Phosphorus Magnesium Total Bilirubin AST ALT Alkaline Phosphatase Total Protein Albumin Globulin Albumin/Globulin Ratio Blood Type Antibody Screen Radiology Impressions: Radiology Impressions Chest X-Ray 06/11/18 06:58 IMPRESSION: No active disease. Resolved pulmonary edema identified previously Chest X-Ray 06/12/18 16:24 IMPRESSION: External artifact limits evaluation of the right lung apex. Right IJ approach catheter extends to the right atrium. Patchy atelectasis or infiltrate within the medial inferior aspect of the right upper lobe. Cardiomegaly. Interventional Procedure 06/12/18 16:40 IMPRESSION: Less than 1 hour fluoroscopic time utilized during performance of the procedure Fingerstick Blood Sugar Results: 132 Review of Systems - Constitutional Constitutional: absent: Fever, Chills, Sweats - EENT Eyes: UNREMARKABLE Ears: UNREMARKABLE - Cardiovascular Cardiovascular: UNREMARKABLE. absent: Chest Pain, Dyspnea - Respiratory Respiratory: UNREMARKABLE - Gastrointestinal Gastrointestinal: UNREMARKABLE - Genitourinary Genitourinary: UNREMARKABLE. absent: Hematuria - Musculoskeletal Musculoskeletal: UNREMARKABLE - Integumentary Integumentary: UNREMARKABLE. absent: Hirsutism - Neurological Neurological: UNREMARKABLE. absent: Abnormal Hearing, Headaches - Psychiatric Psychiatric: UNREMARKABLE. absent: Confusion, Depression - Endocrine Endocrine: UNREMARKABLE Critical Care Progress Note - Extremities/Vascular Does the Patient have a Central Venous Catheter?: No Does the Patient need a Central Venous Catheter?: No Does the Patient have a Ramsay Catheter?: No Does the Patient need a Ramsay Catheter?: No - Prophylaxis GI Prophylaxis GI: PPI - Prophylaxis DVT Prophylaxis DVT: Heparin SQ - Nutrition Nutrition: Nutrition Category Date Time Status Renal Diet [DIET] Diets 06/12/18 Dinner Active Assessment/Plan - Assessment and Plan (Free Text) Assessment: 83 M w/ PMHx of SBO, renal insufficiency, HF transferred to ICU for SOB/ pulmonary edema; platlets normalizing, POD #1 s/p nettie catheter insertion (permacath avoided due to bactermia), klebsiella bacteremia, had tolerated dialysis 2, post 1 PRBC, likely ICU downgrade to [facility] following dialysis and repeat CBC/CMP Plan: Neuro: - A&O x 3 Cardiac: - elevated trops; likely due to pulmonary congestion, currently down trending - EKG: sinus w/ 1st degree block - Echo: EF 55-60%, normal systolic fxn, trace aortic reguirgiation, moderate mitral regurgitation, severe pulmonary HTN - Hx of HTN, norvasc to 10 mg PO daily, hydralizine 10 mg PO Q6H, HCTZ 25 mg PO daily, Lasix 40 mg IV BID, metoprolol 50 mg PO Q12H - aspirin 81 mg po daily - crestor 10 mg daily - possible cardiac cath Sunday Pulm - CXR 06/12: patchy atelectasis or infiltrate within medial inferior aspect of RUL GI - admitted for SBO, resolved via NGT; removed 06/09, denies N/V - CT abd/pelv (06/10): Small bibasilar infiltrates/edema. Small bilateral pleural effusions and associated consolidations. 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 Small bilateral pleural effusions and associated consolidations - Afebrile > 48H, WBC downtrending to 11s - Blood culture 06/10 - gram negative rods- klebsiella, sensitive to meropenum, ceftriaxone - Repeat Blood culture from 06/11 - negative - Zosyn 2.25 gm Q6H (06/10) switched to meropenum (06/12) switched to ceftriaxone 1g daily (06/13) - 1 X Vanc on 06/10 PPx - Protonix 20 for GI ppx - DVT ppx: SCDs, Heparin 5000 units Q8 <Juan Blackburn M - Last Filed: 06/18/18 08:05> CCU Objective - Vital Signs / Intake & Output Vital Signs (Last 4 hours): Vital Signs Temp Pulse Resp BP Pulse Ox 06/18/18 08:00 98.7 F 62 20 166/68 H 97 Intake and Output (Last 8hrs): Intake & Output 06/17/18 06/18/18 06/18/18 22:59 06:59 14:59 Output Total 350 Balance -350 Weight 130 lb Output: Urine 350 Urine, Voided 350 Other: # Voids Urine, Voided 2 1 - Medications Active Medications: Active Medications Generic Name Dose Route Start Last Admin Trade Name Rg PRN Reason Stop Dose Admin Amlodipine Besylate 10 mg 06/10/18 10:00 06/17/18 10:06 Norvasc PO 10 mg DAILY [facility] Administration Aspirin 81 mg 06/06/18 10:00 06/17/18 10:06 Ecotrin PO 81 mg DAILY [facility] Administration Epoetin Manny 10,000 unit 06/15/18 11:30 06/17/18 08:21 Procrit SC 10,000 unit MWF [facility] Administration Furosemide 40 mg 06/09/18 20:00 06/17/18 17:31 Lasix IVP 40 mg BID [facility] Administration Heparin Sodium (Porcine) 2,200 units 06/15/18 10:00 06/15/18 12:05 Heparin (For Dialysis) IVP 2,200 units TTS [facility] Administration Heparin Sodium (Porcine) 5,000 units 06/17/18 00:45 06/18/18 05:37 Heparin SC 5,000 units Q8 [facility] Administration Hydralazine HCl 50 mg 06/16/18 10:00 06/17/18 22:09 Apresoline PO 50 mg QID [facility] Administration Hydrochlorothiazide 25 mg 06/08/18 10:00 06/17/18 10:06 Hydrodiuril PO 25 mg DAILY [facility] Administration Ceftriaxone Sodium 1 gm/ 100 mls @ 100 mls/hr 06/13/18 18:00 06/17/18 17:33 Sodium Chloride IVPB 100 mls/hr 1800 [facility] Administration Protocol Insulin Aspart 0 unit 06/10/18 16:30 06/17/18 22:00 Novolog SC Not Given ACHS [facility] Protocol Insulin Detemir 15 unit 06/14/18 12:42 06/17/18 10:07 Levemir SC 15 u DAILY [facility] Administration Losartan Potassium 100 mg 06/07/18 10:00 06/17/18 10:06 Cozaar PO 100 mg DAILY [facility] Administration Metoprolol Tartrate 50 mg 06/13/18 22:00 06/17/18 22:10 Lopressor PO 50 mg Q12H [facility] Administration Multivitamins 1 tab 06/07/18 10:00 06/17/18 10:06 Hexavitamin PO 1 tab DAILY [facility] Administration Pantoprazole Sodium 20 mg 06/12/18 10:00 06/17/18 10:06 Protonix Ec Tab PO 20 mg DAILY [facility] Administration Paricalcitol 2 mcg 06/15/18 10:00 06/15/18 12:04 Zemplar IV 2 mcg TTS [facility] Administration Rosuvastatin Calcium 10 mg 06/06/18 22:00 06/17/18 22:10 Crestor PO 10 mg HS [facility] Administration - Patient Studies Lab Studies: Lab Studies 06/17/18 06/17/18 Range/Units 07:42 07:42 WBC 11.9 H (4.8-10.8) K/uL RBC 4.70 (4.40-5.90) Mil/uL Hgb 10.3 L (12.0-18.0) g/dL Hct 33.0 L (35.0-51.0) % MCV 70.4 L (80.0-94.0) fL MCH 21.8 L (27.0-31.0) pg MCHC 31.1 L (33.0-37.0) g/dL RDW 24.6 H (11.5-14.5) % Plt Count 236 (130-400) K/uL MPV 9.7 (7.2-11.7) fL Neut % (Auto) 67.0 (50.0-75.0) % Lymph % (Auto) 18.1 L (20.0-40.0) % [place] % (Auto) 9.6 (0.0-10.0) % Eos % (Auto) 4.2 H (0.0-4.0) % Baso % (Auto) 1.1 (0.0-2.0) % Neut # (Auto) 8.0 H (1.8-7.0) K/uL Lymph # (Auto) 2.1 (1.0-4.3) K/uL [place] # (Auto) 1.1 H (0.0-0.8) K/uL Eos # (Auto) 0.5 (0.0-0.7) K/uL Baso # (Auto) 0.1 (0.0-0.2) K/uL Sodium 134 (132-148) mmol/L Potassium 3.5 L (3.6-5.2) mmol/L Chloride 97 L (98-107) mmol/L Carbon Dioxide 24 (22-30) mmol/L Anion Gap 17 (10-20) BUN 43 H (9-20) mg/dL Creatinine 5.2 H (0.8-1.5) mg/dL Est GFR ( Amer) 13 Est GFR (Non-Af Amer) 11 Random Glucose 154 H (75-110) mg/dL Calcium 8.3 L (8.6-10.4) mg/dl Phosphorus 5.0 H (2.5-4.5) mg/dL Magnesium 1.9 (1.6-2.3) mg/dL Total Bilirubin 0.4 (0.2-1.3) mg/dL AST 33 (17-59) U/L ALT 39 (21-72) U/L Alkaline Phosphatase 161 H D (38-126) U/L Total Protein 6.7 (6.3-8.3) g/dL Albumin 3.7 (3.5-5.0) g/dL Globulin 3.0 (2.2-3.9) gm/dL Albumin/Globulin Ratio 1.2 (1.0-2.1) Laboratory Results - last 24 hr 06/17/18 06/17/18 07:42 07:42 WBC 11.9 H RBC 4.70 Hgb 10.3 L Hct 33.0 L MCV 70.4 L MCH 21.8 L MCHC 31.1 L RDW 24.6 H Plt Count 236 MPV 9.7 Neut % (Auto) 67.0 Lymph % (Auto) 18.1 L [place] % (Auto) 9.6 Eos % (Auto) 4.2 H Baso % (Auto) 1.1 Neut # (Auto) 8.0 H Lymph # (Auto) 2.1 [place] # (Auto) 1.1 H Eos # (Auto) 0.5 Baso # (Auto) 0.1 Sodium 134 Potassium 3.5 L Chloride 97 L Carbon Dioxide 24 Anion Gap 17 BUN 43 H Creatinine 5.2 H Est GFR ( Amer) 13 Est GFR (Non-Af Amer) 11 Random Glucose 154 H Calcium 8.3 L Phosphorus 5.0 H Magnesium 1.9 Total Bilirubin 0.4 AST 33 ALT 39 Alkaline Phosphatase 161 H D Total Protein 6.7 Albumin 3.7 Globulin 3.0 Albumin/Globulin Ratio 1.2 Critical Care Progress Note - Nutrition Nutrition: Nutrition Category Date Time Status Renal Diet [DIET] Diets 06/12/18 Dinner Active Attending/Attestation - Attestation I have personally seen and examined this patient.: Yes I have fully participated in the care of the patient.: Yes I have reviewed all pertinent clinical information: Yes Notes (Text): Today: May The patient was Seen/interviewed and examined by me at the bedside during ICU round, Medical records reviewed and Management issues were discussed and formulated with the house staff. Events reviewed I have reviewed all the relevant clinical, laboratory, hemodynamic, radiographic data and medications Pain issues, skin care, head of the bed elevation, glycemic control were addressed. I concur with resident's assessment and plan of care as transcribed in Dr. Mclain note.
--- NOTE | 2018-06-13 11:10 | CP.PCM.PN ---
Subjective - Date & Time of Evaluation Date of Evaluation: 06/13/18 Time of Evaluation: 11:00 - Subjective Subjective: chart review Vitals noted had first dialysis yesterday had one unit PRBC no unusual event patient seen discussion with HD nurse patient reports no complain can transfer from bed to chair he will have another HD today plan of transfer today feeding no abdominal pain had BM Objective - Vital Signs/Intake and Output Vital Signs (last 24 hours): Temp Pulse Resp BP Pulse Ox 99.1 F 69 14 185/66 H 100 06/13/18 08:00 06/13/18 11:00 06/13/18 11:00 06/13/18 10:36 06/13/18 11:00 Intake and Output: 06/13/18 06/13/18 06:59 18:59 Intake Total 325 470 Output Total 450 400 Balance -125 70 - Medications Medications: Current Medications Amlodipine Besylate (Norvasc) 10 mg PO DAILY [facility] Last Admin: 06/13/18 09:38 Dose: 10 mg Aspirin (Ecotrin) 81 mg PO DAILY [facility] Last Admin: 06/13/18 09:36 Dose: 81 mg Epoetin Manny (Procrit) 10,000 unit SC MWF [facility] Last Admin: 06/12/18 11:22 Dose: 10,000 unit Furosemide (Lasix) 40 mg IVP BID [facility] Last Admin: 06/13/18 09:36 Dose: 40 mg Heparin Sodium (Porcine) (Heparin) 5,000 units SC Q8 [facility] Last Admin: 06/11/18 21:05 Dose: 5,000 units Hydralazine HCl (Apresoline) 10 mg PO Q6H [facility] Hydrochlorothiazide (Hydrodiuril) 25 mg PO DAILY [facility] Last Admin: 06/13/18 09:36 Dose: 25 mg Ceftriaxone Sodium 1 gm/ (Sodium Chloride) 100 mls @ 100 mls/hr IVPB Q12H [facility]; Protocol Insulin Aspart (Novolog) 0 unit SC ACHS [facility]; Protocol Last Admin: 06/13/18 07:58 Dose: Not Given Insulin Detemir (Levemir) 10 unit SC DAILY [facility] Last Admin: 06/13/18 09:35 Dose: 10 u Losartan Potassium (Cozaar) 100 mg PO DAILY [facility] Last Admin: 06/13/18 09:37 Dose: 100 mg Metoprolol Tartrate (Lopressor) 50 mg PO Q12H [facility] Multivitamins (Hexavitamin) 1 tab PO DAILY [facility] Last Admin: 06/13/18 09:36 Dose: 1 tab Pantoprazole Sodium (Protonix Ec Tab) 20 mg PO DAILY [facility] Last Admin: 06/13/18 09:37 Dose: 20 mg Rosuvastatin Calcium (Crestor) 10 mg PO HS [facility] Last Admin: 06/12/18 22:25 Dose: 10 mg - Labs Labs: 06/13/18 06:12 06/13/18 06:12 PT 12.5 SECONDS (9.7-12.2) H 06/11/18 10:48 INR 1.1 06/11/18 10:48 APTT 57 SECONDS (21-34) H 06/11/18 10:48 - Constitutional Appears: Non-toxic, No Acute Distress - Head Exam Head Exam: ATRAUMATIC, NORMOCEPHALIC - Eye Exam Eye Exam: absent: Nystagmus - ENT Exam ENT Exam: Mucous Membranes Moist - Neck Exam Neck Exam: Full ROM - Respiratory Exam Respiratory Exam: Clear to Ausculation Bilateral, NORMAL BREATHING PATTERN - Cardiovascular Exam Cardiovascular Exam: REGULAR RHYTHM - GI/Abdominal Exam GI & Abdominal Exam: Soft, Tenderness, Normal Bowel Sounds. absent: Distended - Extremities Exam Extremities Exam: Full ROM. 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 improved with antibiotic Status: Acute (8) CHF (congestive heart failure) Status: Acute - Assessment and Plan (Free Text) Assessment: Debility- for PT eval for subacute
--- NOTE | 2018-06-13 11:12 | CP.PCM.PN ---
Subjective - Date & Time of Evaluation Date of Evaluation: 06/13/18 Time of Evaluation: 11:12 - Subjective Subjective: pt is seen and examined by me, follow up consult is dictated #[id number] s/p rtijv nettie cath placement yesterday s/p 1 st hd yesterday for another treatment of hd today Objective - Vital Signs/Intake and Output Vital Signs (last 24 hours): Temp Pulse Resp BP Pulse Ox 99.1 F 69 14 185/66 H 100 06/13/18 08:00 06/13/18 11:00 06/13/18 11:00 06/13/18 10:36 06/13/18 11:00 Intake and Output: 06/13/18 06/13/18 06:59 18:59 Intake Total 325 470 Output Total 450 400 Balance -125 70 - Medications Medications: Current Medications Amlodipine Besylate (Norvasc) 10 mg PO DAILY [facility] Last Admin: 06/13/18 09:38 Dose: 10 mg Aspirin (Ecotrin) 81 mg PO DAILY [facility] Last Admin: 06/13/18 09:36 Dose: 81 mg Epoetin Manny (Procrit) 10,000 unit SC MWF [facility] Last Admin: 06/12/18 11:22 Dose: 10,000 unit Furosemide (Lasix) 40 mg IVP BID [facility] Last Admin: 06/13/18 09:36 Dose: 40 mg Heparin Sodium (Porcine) (Heparin) 5,000 units SC Q8 [facility] Last Admin: 06/11/18 21:05 Dose: 5,000 units Hydralazine HCl (Apresoline) 10 mg PO Q6H [facility] Hydrochlorothiazide (Hydrodiuril) 25 mg PO DAILY [facility] Last Admin: 06/13/18 09:36 Dose: 25 mg Ceftriaxone Sodium 1 gm/ (Sodium Chloride) 100 mls @ 100 mls/hr IVPB Q12H [facility]; Protocol Insulin Aspart (Novolog) 0 unit SC ACHS [facility]; Protocol Last Admin: 06/13/18 07:58 Dose: Not Given Insulin Detemir (Levemir) 10 unit SC DAILY [facility] Last Admin: 06/13/18 09:35 Dose: 10 u Losartan Potassium (Cozaar) 100 mg PO DAILY [facility] Last Admin: 06/13/18 09:37 Dose: 100 mg Metoprolol Tartrate (Lopressor) 50 mg PO Q12H [facility] Multivitamins (Hexavitamin) 1 tab PO DAILY [facility] Last Admin: 06/13/18 09:36 Dose: 1 tab Pantoprazole Sodium (Protonix Ec Tab) 20 mg PO DAILY [facility] Last Admin: 06/13/18 09:37 Dose: 20 mg Rosuvastatin Calcium (Crestor) 10 mg PO HS [facility] Last Admin: 06/12/18 22:25 Dose: 10 mg - Labs Labs: 06/13/18 06:12 06/13/18 06:12 PT 12.5 SECONDS (9.7-12.2) H 06/11/18 10:48 INR 1.1 06/11/18 10:48 APTT 57 SECONDS (21-34) H 06/11/18 10:48
[2018-06-13] MEDS ORDERED: Paricalcitol 2 mcg/ml Inj IV ONE ×2 (13:00→16:15)
[2018-06-13 17:35] LABS: BASO # 0.1 K/uL (0.0-0.2); EOS # 0.3 K/uL (0.0-0.7); EOS % 3.6 % (0.0-4.0); HEMOGLOBIN 10.2 g/dL (12.0-18.0); LYMPH # 1.3 K/uL (1.0-4.3); LYMPH % 13.9 % (20.0-40.0); MEAN CELL VOLUME 69.7 fL (80.0-94.0); MEAN CORPUSCULAR HEMOGLOBIN 21.6 pg (27.0-31.0); MEAN PLATELET VOLUME 9.6 fL (7.2-11.7); MONO # 1.1 K/uL (0.0-0.8); MONO % 11.3 % (0.0-10.0); NEUT # 6.8 K/uL (1.8-7.0); NEUT % 70.2 % (50.0-75.0); NRBC % 0.3 % (0.0-2.0); RBC 4.71 Mil/uL (4.40-5.90); RED CELL DISTRIBUTION WIDTH 24.9 % (11.5-14.5); WHITE BLOOD COUNT 9.7 K/uL (4.8-10.8)
[2018-06-13 18:25] LABS: ALB/GLOB RATIO 1.1 (1.0-2.1); ALBUMIN 3.7 g/dL (3.5-5.0); CALCIUM 8.3 mg/dl (8.6-10.4)
--- NOTE | 2018-06-14 00:55 | PN ---
DATE: 06/13/2018 LOCATION: The patient is located in room ICU, bed 3. REQUESTED BY: Dr. Ana Noel. 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 SUBJECTIVE: Mr. 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 Subsequently, the patient underwent flash pulmonary edema and hypertension and also elevated troponin levels requiring transfer to ICU, placed on IV nitro and IV Lasix and BiPAP. His symptoms gradually improved and also the patient spiked to 102 on 06/09/2018 in ICU and blood cultures were drawn and identified as positive for Klebsiella pneumoniae, on IV antibiotics. The patient also found to have worsening renal function with diuresis requiring initiation of the renal replacement therapy. The patient agreed for hemodialysis and underwent Augie catheter placement for hemodialysis. The patient underwent hemodialysis yesterday and also scheduled for another treatment this afternoon. The patient is out of bed to chair, feeling much better, no complaints. No chest pain, no palpitation. No fever. No cough. No abdominal pain. No nausea, vomiting, diarrhea. PHYSICAL EXAMINATION: VITAL SIGNS: As follows: Blood pressure this morning 153/51, pulse 69, respirations 14 and temperature 99.1, saturation 100%. Height 5 feet 4 inches and weight is 132 pounds. GENERAL: Mr. Irving is an 83 years old elderly male, moderately built, moderately nourished, not in acute distress. HEENT: Pupils normal, react to light and accommodation. Conjunctivae pink. Sclerae anicteric. Tongue is moist and trachea is midline. LUNGS: Symmetric on both sides. Occasional basal crackles present. CARDIOVASCULAR SYSTEM: [place] at the fifth intercostal space, midclavicular line. S1, S2 audible. No murmur or gallop. ABDOMEN: Normal in appearance, soft, tympanitic. No guarding, no rigidity. No hepatosplenomegaly. CENTRAL NERVOUS SYSTEM: The patient is alert, awake, oriented x3. Nonfocal neuro examination. Cranial nerves II-XII grossly intact. Sensory and motor system is within normal limits. EXTREMITIES: No cyanosis, no clubbing, no edema. LABORATORY DATA: Includes as follows: As of 06/13/2018, WBC 11.2, hemoglobin 9.6, hematocrit is 30.4 and MCV 68.8 and platelets 145. Sodium 135, potassium 3.5, chloride 97, CO2 of 27, BUN 50, creatinine 4.7, glucose 129, calcium 8.1, phosphorus 4.4, magnesium 2.1. Total bili 0.9, AST 34, ALT 35, alkaline phosphatase is 213, total protein 6.7, albumin is 3.6. His other laboratory data as of 06/10/2018, blood culture x1 positive for Klebsiella pneumoniae sensitive to all antibiotics except ampicillin, sensitive to meropenem also. Repeat blood culture as of 06/12/2018, negative x2, day 1. Chest x-ray, as of 06/12/2018, external artifact limits evaluation of the lung, upper apex. Right internal jugular approach catheter extends into the right atrium. Patchy atelectasis or infiltrates within the medial inferior aspect of the right upper lobe, cardiomegaly. ASSESSMENT: In summary, Mr. Irving is an 83-year-old elderly [place] male with a history of longstanding hypertension, diabetes, anemia, also thalassemia, coronary artery disease, status post stent placement, renal failure, proteinuria with worsening renal function with a baseline creatinine about 4.2 in 03/2018 and now admitted with a creatinine 5 with a glomerular filtration rate about 12 to 14 with a small bowel obstruction and also went into flash pulmonary edema and elevated troponin levels and also fever. Blood culture positive for Klebsiella pneumoniae. 1. Acute renal failure on chronic kidney disease V versus progression of the chronic kidney disease V to end-stage renal disease. 2. Anemia secondary to renal failure and iron deficiency cannot be ruled out and alpha-thalassemia. 3. Coronary artery disease. 4. Gram-negative sepsis secondary to Klebsiella pneumoniae. 5. Hypertension. 6. Diabetes. 7. Coronary artery disease with elevated troponin levels, most likely secondary to demand ischemia with flash pulmonary edema, cannot rule out non-ST elevation myocardial infarction. PLAN: The patient's repeat cultures are negative so far, day 1. Continue to monitor. Continue IV antibiotics as per ID recommendations. Continue his antihypertensive medications, hydralazine 10 mg p.o. every 6 hours, losartan 100 mg p.o. daily, metoprolol 50 mg every 12 hours, amlodipine 10 mg daily, continue Procrit 10,000 units three times a week, Sunday, Sunday, and Sunday and continue GI prophylaxis, Protonix 20 mg p.o. daily and also continue vitamins 1 tablet p.o. daily and subcu heparin for DVT prophylaxis 5000 units every 8 hours and aspirin 81 mg p.o. daily. Continue Crestor 10 mg at bedtime, continue Rocephin 1 g daily for Klebsiella pneumoniae sepsis. We will follow up with Vascular Surgery for AV fistula and PermCath placement when cleared by ID. We will follow up with you. Thank you for allowing me to participate in your patient's care. Aamir Galeano MD
--- NOTE | 2018-06-14 06:00 | CP.PCM.PN ---
Subjective - Date & Time of Evaluation Date of Evaluation: 06/12/18 Time of Evaluation: 16:20 - Subjective Subjective: Patient seen and evaluatedPatient seen and evaluated Denies chest pain and dyspnea Physical Exam - Constitutional Appears: Non-toxic, No Acute Distress - ENT Exam ENT Exam: Mucous Membranes Moist - Respiratory Exam Respiratory Exam: Clear to Auscultation Bilateral, NORMAL BREATHING PATTERN - Cardiovascular Exam Cardiovascular Exam: REGULAR RHYTHM, +S1, +S2 - GI/Abdominal Exam GI & Abdominal Exam: Distended, Soft, Tenderness. absent: Firm, Guarding, Rebound, Rigid Additional comments: full, tender, distended NGT in place with bilious output Ex lap scar noted - Extremities Exam Extremities exam: Negative for: pedal edema, tenderness - Neurological Exam Neurological exam: Alert, Oriented x3 - Psychiatric Exam Psychiatric exam: Normal Affect, Normal Mood - Skin Skin Exam: Dry, Intact, Normal Color, Warm Assessment & Plan - Assessment and Plan (Free Text) Assessment: SBO improved 1. CAD s/p RCA stent 05/2016. No interval cardiac symptoms 2. Normal EF 3. HTN 4. CKD 5. ACS 6. Fevere/Sepsis? 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 EF 55% Avoid fluid overload Lasix IV as needed Patient developing anemia likely CKD May need transfusion and definitive renal therapy (HD) phillip Objective - Vital Signs/Intake and Output Vital Signs (last 24 hours): Temp Pulse Resp BP Pulse Ox 98.7 F 57 L 14 140/65 90 L 06/13/18 20:00 06/14/18 05:00 06/14/18 05:00 06/14/18 05:36 06/14/18 05:00 Intake and Output: 06/13/18 06/14/18 18:59 06:59 Intake Total 520 730 Output Total 900 600 Balance -380 130 - Medications Medications: Current Medications Amlodipine Besylate (Norvasc) 10 mg PO DAILY [facility] Last Admin: 06/13/18 09:38 Dose: 10 mg Aspirin (Ecotrin) 81 mg PO DAILY [facility] Last Admin: 06/13/18 09:36 Dose: 81 mg Epoetin Manny (Procrit) 10,000 unit SC MWF [facility] Last Admin: 06/12/18 11:22 Dose: 10,000 unit Furosemide (Lasix) 40 mg IVP BID [facility] Last Admin: 06/13/18 18:31 Dose: 40 mg Heparin Sodium (Porcine) (Heparin) 5,000 units SC Q8 [facility] Last Admin: 06/13/18 22:43 Dose: 5,000 units Hydralazine HCl (Apresoline) 10 mg PO Q6H [facility] Last Admin: 06/14/18 00:32 Dose: 10 mg Hydrochlorothiazide (Hydrodiuril) 25 mg PO DAILY [facility] Last Admin: 06/13/18 09:36 Dose: 25 mg Ceftriaxone Sodium 1 gm/ (Sodium Chloride) 100 mls @ 100 mls/hr IVPB 1800 [facility]; Protocol Last Admin: 06/13/18 17:18 Dose: 100 mls/hr Insulin Aspart (Novolog) 0 unit SC ACHS [facility]; Protocol Last Admin: 06/13/18 21:37 Dose: Not Given Insulin Detemir (Levemir) 10 unit SC DAILY [facility] Last Admin: 06/13/18 09:35 Dose: 10 u Losartan Potassium (Cozaar) 100 mg PO DAILY [facility] Last Admin: 06/13/18 09:37 Dose: 100 mg Metoprolol Tartrate (Lopressor) 50 mg PO Q12H [facility] Last Admin: 06/13/18 22:43 Dose: 50 mg Multivitamins (Hexavitamin) 1 tab PO DAILY [facility] Last Admin: 06/13/18 09:36 Dose: 1 tab Pantoprazole Sodium (Protonix Ec Tab) 20 mg PO DAILY [facility] Last Admin: 06/13/18 09:37 Dose: 20 mg Rosuvastatin Calcium (Crestor) 10 mg PO HS [facility] Last Admin: 06/13/18 22:43 Dose: 10 mg - Labs Labs: 06/13/18 17:25 06/13/18 17:25 PT 12.5 SECONDS (9.7-12.2) H 06/11/18 10:48 INR 1.1 06/11/18 10:48 APTT 57 SECONDS (21-34) H 06/11/18 10:48
--- NOTE | 2018-06-14 06:01 | CP.PCM.PN ---
Subjective - Date & Time of Evaluation Date of Evaluation: 06/13/18 Time of Evaluation: 19:20 - Subjective Subjective: Patient seen and evaluatedPatient seen and evaluated Denies chest pain and dyspnea S/P Hemodialysis Physical Exam - Constitutional Appears: Non-toxic, No Acute Distress - ENT Exam ENT Exam: Mucous Membranes Moist - Respiratory Exam Respiratory Exam: Clear to Auscultation Bilateral, NORMAL BREATHING PATTERN - Cardiovascular Exam Cardiovascular Exam: REGULAR RHYTHM, +S1, +S2 - GI/Abdominal Exam GI & Abdominal Exam: Distended, Soft, Tenderness. absent: Firm, Guarding, Rebound, Rigid Additional comments: full, tender, distended NGT in place with bilious output Ex lap scar noted - Extremities Exam Extremities exam: Negative for: pedal edema, tenderness - Neurological Exam Neurological exam: Alert, Oriented x3 - Psychiatric Exam Psychiatric exam: Normal Affect, Normal Mood - Skin Skin Exam: Dry, Intact, Normal Color, Warm Assessment & Plan - Assessment and Plan (Free Text) Assessment: SBO improved 1. CAD s/p RCA stent 05/2016. No interval cardiac symptoms 2. Normal EF 3. HTN 4. CKD 5. ACS 6. Fevere/Sepsis? 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 EF 55% Avoid fluid overload Lasix IV as needed HD initiated Patient feels better Objective - Vital Signs/Intake and Output Vital Signs (last 24 hours): Temp Pulse Resp BP Pulse Ox 98.7 F 57 L 14 140/65 90 L 06/13/18 20:00 06/14/18 05:00 06/14/18 05:00 06/14/18 05:36 06/14/18 05:00 Intake and Output: 06/13/18 06/14/18 18:59 06:59 Intake Total 520 730 Output Total 900 600 Balance -380 130 - Medications Medications: Current Medications Amlodipine Besylate (Norvasc) 10 mg PO DAILY [facility] Last Admin: 06/13/18 09:38 Dose: 10 mg Aspirin (Ecotrin) 81 mg PO DAILY [facility] Last Admin: 06/13/18 09:36 Dose: 81 mg Epoetin Manny (Procrit) 10,000 unit SC MWF [facility] Last Admin: 06/12/18 11:22 Dose: 10,000 unit Furosemide (Lasix) 40 mg IVP BID [facility] Last Admin: 06/13/18 18:31 Dose: 40 mg Heparin Sodium (Porcine) (Heparin) 5,000 units SC Q8 [facility] Last Admin: 06/13/18 22:43 Dose: 5,000 units Hydralazine HCl (Apresoline) 10 mg PO Q6H [facility] Last Admin: 06/14/18 00:32 Dose: 10 mg Hydrochlorothiazide (Hydrodiuril) 25 mg PO DAILY [facility] Last Admin: 06/13/18 09:36 Dose: 25 mg Ceftriaxone Sodium 1 gm/ (Sodium Chloride) 100 mls @ 100 mls/hr IVPB 1800 [facility]; Protocol Last Admin: 06/13/18 17:18 Dose: 100 mls/hr Insulin Aspart (Novolog) 0 unit SC ACHS [facility]; Protocol Last Admin: 06/13/18 21:37 Dose: Not Given Insulin Detemir (Levemir) 10 unit SC DAILY [facility] Last Admin: 06/13/18 09:35 Dose: 10 u Losartan Potassium (Cozaar) 100 mg PO DAILY [facility] Last Admin: 06/13/18 09:37 Dose: 100 mg Metoprolol Tartrate (Lopressor) 50 mg PO Q12H [facility] Last Admin: 06/13/18 22:43 Dose: 50 mg Multivitamins (Hexavitamin) 1 tab PO DAILY [facility] Last Admin: 06/13/18 09:36 Dose: 1 tab Pantoprazole Sodium (Protonix Ec Tab) 20 mg PO DAILY [facility] Last Admin: 06/13/18 09:37 Dose: 20 mg Rosuvastatin Calcium (Crestor) 10 mg PO HS [facility] Last Admin: 06/13/18 22:43 Dose: 10 mg - Labs Labs: 06/13/18 17:25 06/13/18 17:25 PT 12.5 SECONDS (9.7-12.2) H 06/11/18 10:48 INR 1.1 06/11/18 10:48 APTT 57 SECONDS (21-34) H 06/11/18 10:48
[2018-06-14 06:13] LABS: BASO # 0.1 K/uL (0.0-0.2); EOS # 0.5 K/uL (0.0-0.7); EOS % 4.6 % (0.0-4.0); HEMOGLOBIN 10.1 g/dL (12.0-18.0); LYMPH # 1.6 K/uL (1.0-4.3); LYMPH % 14.7 % (20.0-40.0); MEAN CELL VOLUME 70.4 fL (80.0-94.0); MEAN CORPUSCULAR HEMOGLOBIN 21.8 pg (27.0-31.0); MEAN PLATELET VOLUME 10.6 fL (7.2-11.7); MONO # 1.4 K/uL (0.0-0.8); MONO % 12.4 % (0.0-10.0); NEUT # 7.4 K/uL (1.8-7.0); NEUT % 67.3 % (50.0-75.0); NRBC % 0.1 % (0.0-2.0); RBC 4.61 Mil/uL (4.40-5.90)
[2018-06-14 06:37] LABS: ALB/GLOB RATIO 1.1 (1.0-2.1); ALBUMIN 3.5 g/dL (3.5-5.0); CALCIUM 8.1 mg/dl (8.6-10.4)
[2018-06-14] MEDS: Pantoprazole 20 mg EC Tab PO SCH (10:02)
[2018-06-14] MEDS: Multiple Vitamins Tab PO SCH (10:02)
[2018-06-14] MEDS: Insulin Detemir 100 units/ml Vial (Levemir) SC SCH (10:04)
[2018-06-14] MEDS: (Novolog) Insulin Aspart, Recombinant 100 u/ml 10 ml vial SC SCH ×4 (10:04→23:01)
--- NOTE | 2018-06-14 11:12 | CARD ---
APPROVED REPORT Date of service: 06/06/2018 EKG Measurement Heart [id number] <Conclusion> Sinus rhythm with 1st degree AV block Otherwise normal ECG
--- NOTE | 2018-06-14 12:42 | CP.PCM.PN ---
Subjective - Date & Time of Evaluation Date of Evaluation: 06/14/18 Time of Evaluation: 12:00 - Subjective Subjective: chart review vitals BP noted on high side, had HD sugar rising patient seen comfortable felt better after 2 cycles of HD laboratory discussed ambulatory feeding had BM, no abdominal pain Objective - Vital Signs/Intake and Output Vital Signs (last 24 hours): Temp Pulse Resp BP Pulse Ox 98.3 F 57 L 13 158/66 H 100 06/14/18 11:58 06/14/18 08:00 06/14/18 08:00 06/14/18 11:58 06/14/18 11:58 Intake and Output: 06/14/18 06/14/18 06:59 18:59 Intake Total 730 Output Total 600 200 Balance 130 -200 - Medications Medications: Current Medications Amlodipine Besylate (Norvasc) 10 mg PO DAILY [facility] Last Admin: 06/14/18 10:03 Dose: 10 mg Aspirin (Ecotrin) 81 mg PO DAILY [facility] Last Admin: 06/14/18 10:02 Dose: 81 mg Epoetin Manny (Procrit) 10,000 unit SC MWF [facility] Last Admin: 06/12/18 11:22 Dose: 10,000 unit Furosemide (Lasix) 40 mg IVP BID [facility] Last Admin: 06/14/18 10:03 Dose: 40 mg Heparin Sodium (Porcine) (Heparin) 5,000 units SC Q8 [facility] Last Admin: 06/14/18 06:07 Dose: 5,000 units Hydralazine HCl (Apresoline) 10 mg PO Q6H [facility] Last Admin: 06/14/18 06:08 Dose: 10 mg Hydrochlorothiazide (Hydrodiuril) 25 mg PO DAILY [facility] Last Admin: 06/14/18 10:03 Dose: 25 mg Ceftriaxone Sodium 1 gm/ (Sodium Chloride) 100 mls @ 100 mls/hr IVPB 1800 [facility]; Protocol Last Admin: 06/13/18 17:18 Dose: 100 mls/hr Insulin Aspart (Novolog) 0 unit SC ACHS [facility]; Protocol Last Admin: 06/14/18 10:04 Dose: 1 u Insulin Detemir (Levemir) 10 unit SC DAILY [facility] Last Admin: 06/14/18 10:04 Dose: 10 u Losartan Potassium (Cozaar) 100 mg PO DAILY [facility] Last Admin: 06/14/18 10:03 Dose: 100 mg Metoprolol Tartrate (Lopressor) 50 mg PO Q12H [facility] Last Admin: 06/14/18 10:03 Dose: 50 mg Multivitamins (Hexavitamin) 1 tab PO DAILY [facility] Last Admin: 06/14/18 10:02 Dose: 1 tab Pantoprazole Sodium (Protonix Ec Tab) 20 mg PO DAILY [facility] Last Admin: 06/14/18 10:02 Dose: 20 mg Rosuvastatin Calcium (Crestor) 10 mg PO HS [facility] Last Admin: 06/13/18 22:43 Dose: 10 mg - Labs Labs: 06/14/18 06:09 06/14/18 06:09 PT 12.5 SECONDS (9.7-12.2) H 06/11/18 10:48 INR 1.1 06/11/18 10:48 APTT 57 SECONDS (21-34) H 06/11/18 10:48 - Constitutional Appears: Non-toxic, No Acute Distress - Head Exam Head Exam: ATRAUMATIC, NORMOCEPHALIC - Eye Exam Eye Exam: Normal appearance - ENT Exam ENT Exam: Mucous Membranes Moist - Respiratory Exam Respiratory Exam: Decreased Breath Sounds, NORMAL BREATHING PATTERN - Cardiovascular Exam Cardiovascular Exam: REGULAR RHYTHM - GI/Abdominal Exam GI & Abdominal Exam: Soft, Normal Bowel Sounds. absent: Distended - Extremities Exam Extremities Exam: Full ROM. absent: Joint Swelling, Pedal Edema, Tenderness - Neurological Exam Neurological Exam: Alert, Awake, Normal Gait, Oriented x3 - Psychiatric Exam Psychiatric exam: Normal Affect, Normal Mood - Skin Skin Exam: Intact, Normal Color Assessment and Plan (1) Renal failure (ARF), acute on chronic Assessment & Plan: had 2 cylcles of HD with bloos transfusion, feeling better Status: Acute (2) Hypertension associated with chronic kidney disease due to type 2 diabetes mellitus Assessment & Plan: will adjust BP accordingly on HD Status: Acute (3) Coronary arteriosclerosis Assessment & Plan: no chest pain Status: Chronic (4) Small bowel obstruction Assessment & Plan: asymptomatic with BM Status: Acute (5) Anemia Assessment & Plan: with CRI post transfusion.procrit- improving Status: Acute (6) Diabetes mellitus Assessment & Plan: , feeding improving sugar risisng , adjust insulin Status: Acute (7) CHF (congestive heart failure) Assessment & Plan: stable, no fluid overload , had HD , feeling better Status: Acute
[2018-06-14] MEDS: EPOETIN ALFA 10,000 UNIT/ML ML SC SCH (12:58)
--- NOTE | 2018-06-14 15:53 | CP.PCM.PN ---
Subjective - Date & Time of Evaluation Date of Evaluation: 06/14/18 Time of Evaluation: 15:53 - Subjective Subjective: pt is seen and examined, follow up consult is dictated #[id number] for hd in am Objective - Vital Signs/Intake and Output Vital Signs (last 24 hours): Temp Pulse Resp BP Pulse Ox 98.3 F 58 L 8 L 158/66 H 91 L 06/14/18 11:58 06/14/18 12:09 06/14/18 12:09 06/14/18 12:09 06/14/18 12:09 Intake and Output: 06/14/18 06/14/18 06:59 18:59 Intake Total 730 Output Total 600 200 Balance 130 -200 - Medications Medications: Current Medications Amlodipine Besylate (Norvasc) 10 mg PO DAILY [facility] Last Admin: 06/14/18 10:03 Dose: 10 mg Aspirin (Ecotrin) 81 mg PO DAILY [facility] Last Admin: 06/14/18 10:02 Dose: 81 mg Epoetin Manny (Procrit) 10,000 unit SC MWF [facility] Last Admin: 06/14/18 12:58 Dose: 10,000 unit Furosemide (Lasix) 40 mg IVP BID [facility] Last Admin: 06/14/18 10:03 Dose: 40 mg Heparin Sodium (Porcine) (Heparin) 5,000 units SC Q8 [facility] Last Admin: 06/14/18 14:07 Dose: 5,000 units Hydralazine HCl (Apresoline) 10 mg PO Q6H [facility] Last Admin: 06/14/18 12:40 Dose: 10 mg Hydrochlorothiazide (Hydrodiuril) 25 mg PO DAILY [facility] Last Admin: 06/14/18 10:03 Dose: 25 mg Ceftriaxone Sodium 1 gm/ (Sodium Chloride) 100 mls @ 100 mls/hr IVPB 1800 [facility]; Protocol Last Admin: 06/13/18 17:18 Dose: 100 mls/hr Insulin Aspart (Novolog) 0 unit SC ACHS [facility]; Protocol Last Admin: 06/14/18 12:44 Dose: 2 u Insulin Detemir (Levemir) 15 unit SC DAILY [facility] Losartan Potassium (Cozaar) 100 mg PO DAILY [facility] Last Admin: 06/14/18 10:03 Dose: 100 mg Metoprolol Tartrate (Lopressor) 50 mg PO Q12H [facility] Last Admin: 06/14/18 10:03 Dose: 50 mg Multivitamins (Hexavitamin) 1 tab PO DAILY [facility] Last Admin: 06/14/18 10:02 Dose: 1 tab Pantoprazole Sodium (Protonix Ec Tab) 20 mg PO DAILY [facility] Last Admin: 06/14/18 10:02 Dose: 20 mg Rosuvastatin Calcium (Crestor) 10 mg PO HS [facility] Last Admin: 06/13/18 22:43 Dose: 10 mg - Labs Labs: 06/14/18 06:09 06/14/18 06:09 PT 12.5 SECONDS (9.7-12.2) H 06/11/18 10:48 INR 1.1 06/11/18 10:48 APTT 57 SECONDS (21-34) H 06/11/18 10:48
--- NOTE | 2018-06-15 01:17 | PN ---
DATE: 06/14/2018 FOLLOWUP RENAL CONSULTATION LOCATION: The patient is located in room 668. SUBJECTIVE: Mr. Irving is an 83-year-old elderly very pleasant [place] male with a history of longstanding hypertension, diabetes, chronic kidney disease stage 4 to 5, anemia, proteinuria, coronary artery disease, status post stent placement who was admitted with abdominal distention and pain and found to have a small bowel obstruction, status post low Gomco suction and his symptoms improved after 24 hours and started on clear liquids. Subsequently, the patient's course was complicated by flash pulmonary edema, requiring transfer to ICU and placing on BiPAP, IV Lasix and IV nitroglycerin, and also the patient developed fever in ICU room of 102 on 06/09/2018, and subsequently blood culture was growing Klebsiella pneumoniae x1 set, on IV antibiotics. His symptoms improved and WBC improved and also his renal function got worse in ICU, requiring initiation of the renal replacement therapy and also elevated troponin levels. The patient is feeling much better now. PHYSICAL EXAMINATION: VITAL SIGNS: As follows: Blood pressure 130/64, pulse 60, respiration about 13, and saturation 91% to 100%, temperature 98.3. Height 5 feet 4 inches. Weight is 133 pounds. GENERAL: Mr. Irving is an 83-year-old elderly male, moderately built, moderately nourished, not in acute distress. HEENT: Pupils are normal and reactive to light and accommodation. Conjunctivae pink. Sclerae anicteric. Tongue is moist. Trachea is midline. LUNGS: Symmetric on both sides. Bilateral breath sounds present. Clear to auscultation. CARDIOVASCULAR SYSTEM: [place] at the fifth intercostal space, midclavicular line. S1 and S2 audible. No murmur or gallop. ABDOMEN: Normal in appearance. Soft, tympanitic. No guarding. No rigidity. No hepatosplenomegaly. CENTRAL NERVOUS SYSTEM: The patient is alert, awake, oriented x3. Nonfocal neuro examination. Cranial nerves II through XII are grossly intact. Sensory and motor system is within normal limits. EXTREMITIES: No cyanosis, no clubbing, no edema. CURRENT MEDICATIONS: Include as follows: Hydralazine, Rocephin, losartan, Crestor, aspirin, heparin, multivitamins, hydrochlorothiazide, Lasix, metoprolol, amlodipine, Epogen, and Protonix. LABORATORY DATA: Include as follows: WBC 11, hemoglobin 10.1, hematocrit 32.5, platelets 172. Sodium 136, potassium 3.4, chloride 98, CO2 of 13, BUN 34, creatinine 3.7, glucose 169, calcium 8.1, phosphorus 4.4, and magnesium 1.9. Total bili 0.5, AST 31, alkaline phosphatase 212, total protein 6.7, and albumin 3.7. ASSESSMENT: In summary, Mr. Irving is an 83-year-old elderly [place] male with a history of hypertension, diabetes, coronary disease, chronic kidney disease stage 4 to 5, anemia who was admitted with small bowel obstruction, status post flash pulmonary edema, status post gram-negative sepsis with worsening renal function, on hemodialysis. 1. Acute on chronic kidney disease versus progression of chronic kidney disease to end-stage renal disease. 2. Gram-negative sepsis secondary to Klebsiella pneumoniae. 3. Anemia. 4. Hypertension. 5. Diabetes. 6. Status post congestive heart failure. PLAN: Continue IV antibiotics as per PMD. Continue followup with Vascular Surgery for AV fistula placement and PermCath and also follow up with Cardiology for further management. We will follow with you. Thank you for allowing me to participate in your patient's care. Aamir Galeano MD
[2018-06-15 07:08] LABS: ALB/GLOB RATIO 1.1 (1.0-2.1); ALBUMIN 3.6 g/dL (3.5-5.0); CALCIUM 8.1 mg/dl (8.6-10.4)
[2018-06-15 07:11] LABS: BASO # 0.1 K/uL (0.0-0.2); EOS # 0.4 K/uL (0.0-0.7); EOS % 4.6 % (0.0-4.0); HEMOGLOBIN 10.3 g/dL (12.0-18.0); LYMPH # 1.8 K/uL (1.0-4.3); LYMPH % 19.6 % (20.0-40.0); MEAN CELL VOLUME 70.2 fL (80.0-94.0); MEAN CORPUSCULAR HEMOGLOBIN 21.6 pg (27.0-31.0); MEAN CORPUSCULAR HGB CONC 30.7 g/dL (33.0-37.0); MEAN PLATELET VOLUME 10.3 fL (7.2-11.7); MONO # 1.2 K/uL (0.0-0.8); MONO % 13.1 % (0.0-10.0); NEUT # 5.7 K/uL (1.8-7.0); NEUT % 61.7 % (50.0-75.0); NRBC % 0.1 % (0.0-2.0); RBC 4.77 Mil/uL (4.40-5.90); RED CELL DISTRIBUTION WIDTH 25.5 % (11.5-14.5); WHITE BLOOD COUNT 9.3 K/uL (4.8-10.8)
[2018-06-15] MEDS: (Novolog) Insulin Aspart, Recombinant 100 u/ml 10 ml vial SC SCH ×4 (07:56→22:20)
[2018-06-15] MEDS: Insulin Detemir 100 units/ml Vial (Levemir) SC SCH (08:50)
--- NOTE | 2018-06-15 08:54 | CP.PCM.PN ---
Subjective - Date & Time of Evaluation Date of Evaluation: 06/15/18 Time of Evaluation: 08:30 - Subjective Subjective: chart review vitals=BP on high side- meds adjusted HD schedule Patient seen comfortable discussed subacute with HD scheduled HD today patient aware of condition and plan no complaints Objective - Vital Signs/Intake and Output Vital Signs (last 24 hours): Temp Pulse Resp BP Pulse Ox 98.0 F 70 20 161/75 H 97 06/15/18 07:10 06/15/18 07:10 06/15/18 07:10 06/15/18 07:10 06/15/18 07:10 Intake and Output: 06/15/18 06/15/18 06:59 18:59 Intake Total 350 Output Total 1400 Balance -1050 - Medications Medications: Current Medications Amlodipine Besylate (Norvasc) 10 mg PO DAILY [facility] Last Admin: 06/14/18 10:03 Dose: 10 mg Aspirin (Ecotrin) 81 mg PO DAILY [facility] Last Admin: 06/14/18 10:02 Dose: 81 mg Epoetin Manny (Procrit) 10,000 unit SC MWF [facility] Last Admin: 06/14/18 12:58 Dose: 10,000 unit Furosemide (Lasix) 40 mg IVP BID [facility] Last Admin: 06/14/18 18:39 Dose: 40 mg Heparin Sodium (Porcine) (Heparin) 5,000 units SC Q8 [facility] Last Admin: 06/15/18 05:35 Dose: 5,000 units Hydralazine HCl (Apresoline) 25 mg PO TID [facility] Hydrochlorothiazide (Hydrodiuril) 25 mg PO DAILY [facility] Last Admin: 06/14/18 10:03 Dose: 25 mg Ceftriaxone Sodium 1 gm/ (Sodium Chloride) 100 mls @ 100 mls/hr IVPB 1800 [facility]; Protocol Last Admin: 06/14/18 19:04 Dose: 100 mls/hr Insulin Aspart (Novolog) 0 unit SC ACHS [facility]; Protocol Last Admin: 06/15/18 07:56 Dose: 1 u Insulin Detemir (Levemir) 15 unit SC DAILY [facility] Losartan Potassium (Cozaar) 100 mg PO DAILY [facility] Last Admin: 06/14/18 10:03 Dose: 100 mg Metoprolol Tartrate (Lopressor) 50 mg PO Q12H [facility] Last Admin: 06/14/18 23:01 Dose: 50 mg Multivitamins (Hexavitamin) 1 tab PO DAILY [facility] Last Admin: 06/14/18 10:02 Dose: 1 tab Pantoprazole Sodium (Protonix Ec Tab) 20 mg PO DAILY [facility] Last Admin: 06/14/18 10:02 Dose: 20 mg Paricalcitol (Zemplar) 2 mcg IV TTS [facility] Rosuvastatin Calcium (Crestor) 10 mg PO HS [facility] Last Admin: 06/14/18 23:00 Dose: 10 mg - Labs Labs: 06/15/18 06:50 06/15/18 06:50 PT 12.5 SECONDS (9.7-12.2) H 06/11/18 10:48 INR 1.1 06/11/18 10:48 APTT 57 SECONDS (21-34) H 06/11/18 10:48 - Constitutional Appears: Non-toxic, No Acute Distress (ambulatory ) - Eye Exam Eye Exam: absent: Nystagmus - ENT Exam ENT Exam: Mucous Membranes Moist - Respiratory Exam Respiratory Exam: Decreased Breath Sounds, NORMAL BREATHING PATTERN - Cardiovascular Exam Cardiovascular Exam: REGULAR RHYTHM - GI/Abdominal Exam GI & Abdominal Exam: Soft, Normal Bowel Sounds. absent: Tenderness - Extremities Exam Extremities Exam: Full ROM. absent: Pedal Edema - Back Exam Back Exam: Full ROM - Neurological Exam Neurological Exam: Alert, Awake, Normal Gait, Oriented x3 - Psychiatric Exam Psychiatric exam: Normal Affect, Normal Mood - Skin Skin Exam: Intact, Normal Color Assessment and Plan (1) Renal failure (ARF), acute on chronic Assessment & Plan: ongoing HD Status: Acute (2) Hypertension associated with chronic kidney disease due to type 2 diabetes mellitus Assessment & Plan: to adjust meds accordingly , now on HD Status: Acute (3) Coronary arteriosclerosis Assessment & Plan: chest pain free Status: Chronic (4) Small bowel obstruction Assessment & Plan: no symptoms. is feeding Status: Acute (5) Anemia Assessment & Plan: improving Status: Acute (6) Diabetes mellitus Assessment & Plan: noted changes, feeding -will adjust insulin accordingly Status: Acute (7) CHF (congestive heart failure) Assessment & Plan: stable , no SOB Status: Acute - Assessment and Plan (Free Text) Assessment: subacute discussion with patient , with HD center
[2018-06-15] MEDS: Multiple Vitamins Tab PO SCH ×2 (10:46→14:16)
[2018-06-15] MEDS: Pantoprazole 20 mg EC Tab PO SCH ×2 (10:47→14:16)
[2018-06-15] MEDS: Paricalcitol 2 mcg/ml Inj IV SCH (12:04)
[2018-06-15] MEDS: Epoetin Alfa 10,000 unit/ml Dialysis SC SCH (12:04)
--- NOTE | 2018-06-15 12:19 | CARD ---
APPROVED REPORT Date of service: 06/09/2018 EKG Measurement Heart [id number] <Conclusion> Sinus rhythm with 1st degree AV block Otherwise normal ECG
--- NOTE | 2018-06-15 19:59 | CP.PCM.PN ---
Subjective - Date & Time of Evaluation Date of Evaluation: 06/15/18 Time of Evaluation: 12:30 - Subjective Subjective: Providing nephrology coverage for Dr. Galeano: 84 yo M w/ pmh of htn, dm, CAD s/p stent, and CKD IV/V, admitted with gram neg sepsis, worsening renal failure, initiated on HD earlier this week; Seen on HD, not reporting any complaints; Objective - Vital Signs/Intake and Output Vital Signs (last 24 hours): Temp Pulse Resp BP Pulse Ox 97.8 F 73 20 166/79 H 96 06/15/18 15:00 06/15/18 18:45 06/15/18 15:00 06/15/18 18:08 06/15/18 15:00 Intake and Output: 06/15/18 06/16/18 18:59 06:59 Output Total 200 Balance -200 - Medications Medications: Current Medications Amlodipine Besylate (Norvasc) 10 mg PO DAILY [facility] Last Admin: 06/15/18 10:47 Dose: Not Given Aspirin (Ecotrin) 81 mg PO DAILY [facility] Last Admin: 06/15/18 10:45 Dose: Not Given Epoetin Manny (Procrit) 10,000 unit SC MWF [facility] Last Admin: 06/15/18 12:04 Dose: 10,000 unit Furosemide (Lasix) 40 mg IVP BID [facility] Last Admin: 06/15/18 18:08 Dose: 40 mg Heparin Sodium (Porcine) (Heparin) 5,000 units SC Q8 [facility] Last Admin: 06/15/18 14:17 Dose: 5,000 units Heparin Sodium (Porcine) (Heparin (For Dialysis)) 2,200 units IVP TTS [facility] Last Admin: 06/15/18 12:05 Dose: 2,200 units Hydralazine HCl (Apresoline) 25 mg PO TID [facility] Last Admin: 06/15/18 18:03 Dose: 25 mg Hydrochlorothiazide (Hydrodiuril) 25 mg PO DAILY [facility] Last Admin: 06/15/18 14:16 Dose: 25 mg Ceftriaxone Sodium 1 gm/ (Sodium Chloride) 100 mls @ 100 mls/hr IVPB 1800 [facility]; Protocol Last Admin: 06/15/18 18:04 Dose: 100 mls/hr Insulin Aspart (Novolog) 0 unit SC ACHS [facility]; Protocol Last Admin: 06/15/18 17:26 Dose: 4 u Insulin Detemir (Levemir) 15 unit SC DAILY [facility] Last Admin: 06/15/18 08:50 Dose: 15 u Losartan Potassium (Cozaar) 100 mg PO DAILY [facility] Last Admin: 06/15/18 14:17 Dose: 100 mg Metoprolol Tartrate (Lopressor) 50 mg PO Q12H [facility] Last Admin: 06/15/18 10:46 Dose: Not Given Multivitamins (Hexavitamin) 1 tab PO DAILY [facility] Last Admin: 06/15/18 14:16 Dose: 1 tab Pantoprazole Sodium (Protonix Ec Tab) 20 mg PO DAILY [facility] Last Admin: 06/15/18 14:16 Dose: 20 mg Paricalcitol (Zemplar) 2 mcg IV TTS [facility] Last Admin: 06/15/18 12:04 Dose: 2 mcg Rosuvastatin Calcium (Crestor) 10 mg PO HS [facility] Last Admin: 06/14/18 23:00 Dose: 10 mg - Labs Labs: 06/15/18 06:50 06/15/18 06:50 PT 12.5 SECONDS (9.7-12.2) H 06/11/18 10:48 INR 1.1 06/11/18 10:48 APTT 57 SECONDS (21-34) H 06/11/18 10:48 - Constitutional Appears: Non-toxic, No Acute Distress - Eye Exam Eye Exam: Normal appearance - Respiratory Exam Respiratory Exam: absent: Rhonchi, Wheezes, Respiratory Distress - Cardiovascular Exam Cardiovascular Exam: RRR, +S1, +S2 - GI/Abdominal Exam GI & Abdominal Exam: Soft. absent: Distended, Tenderness - Neurological Exam Neurological Exam: Alert, Awake - Psychiatric Exam Psychiatric exam: Normal Affect, Normal Mood. absent: Agitated - Skin Skin Exam: Warm. absent: Cyanosis Assessment and Plan (1) ESRD on hemodialysis Assessment & Plan: Stable electrolyte and volume status; receiving HD today via temp IJ catheter; tolerating well; -Will be on TTS HD schedule for now; -f/u with vasc surgery for tunneled HD cath placement and AVF creation; Status: Acute (2) Hypertensive CKD, ESRD on dialysis Assessment & Plan: BP still elevated; will increase hydralazine to 50 mg q8h, continue rest of meds including IV diuretics; Status: Acute (3) Anemia in CKD (chronic kidney disease) Assessment & Plan: Hgb just at goal (10-11g), continue EPO on HD; no need for IV iron; Status: Acute (4) Gram negative sepsis Assessment & Plan: On ceftriaxone, no renal dose adjustment needed; Status: Acute (5) Chronic kidney disease-mineral and bone disorder Assessment & Plan: Phos just at goal (< 5.5), will start on phoslo 1 tab w/ meals; Status: Acute
--- NOTE | 2018-06-15 20:42 | CP.PCM.PN ---
Subjective - Date & Time of Evaluation Date of Evaluation: 06/15/18 Time of Evaluation: 09:15 - Subjective Subjective: Patient seen and evaluatedPatient seen and evaluated Denies chest pain and dyspnea S/P Hemodialysis Physical Exam - Constitutional Appears: Non-toxic, No Acute Distress - ENT Exam ENT Exam: Mucous Membranes Moist - Respiratory Exam Respiratory Exam: Clear to Auscultation Bilateral, NORMAL BREATHING PATTERN - Cardiovascular Exam Cardiovascular Exam: REGULAR RHYTHM, +S1, +S2 - GI/Abdominal Exam GI & Abdominal Exam: Distended, Soft, Tenderness. absent: Firm, Guarding, Rebound, Rigid Additional comments: full, tender, distended NGT in place with bilious output Ex lap scar noted - Extremities Exam Extremities exam: Negative for: pedal edema, tenderness - Neurological Exam Neurological exam: Alert, Oriented x3 - Psychiatric Exam Psychiatric exam: Normal Affect, Normal Mood - Skin Skin Exam: Dry, Intact, Normal Color, Warm Assessment & Plan - Assessment and Plan (Free Text) Assessment: SBO improved 1. CAD s/p RCA stent 05/2016. No interval cardiac symptoms 2. Normal EF 3. HTN 4. CKD 5. ACS 6. Fevere/Sepsis? 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 EF 55% Avoid fluid overload Lasix IV as needed HD initiated Patient feels better Objective - Vital Signs/Intake and Output Vital Signs (last 24 hours): Temp Pulse Resp BP Pulse Ox 97.8 F 73 20 166/79 H 96 06/15/18 15:00 06/15/18 18:45 06/15/18 15:00 06/15/18 18:08 06/15/18 15:00 Intake and Output: 06/15/18 06/16/18 18:59 06:59 Output Total 200 Balance -200 - Medications Medications: Current Medications Amlodipine Besylate (Norvasc) 10 mg PO DAILY [facility] Last Admin: 06/15/18 10:47 Dose: Not Given Aspirin (Ecotrin) 81 mg PO DAILY [facility] Last Admin: 06/15/18 10:45 Dose: Not Given Epoetin Manny (Procrit) 10,000 unit SC MWF [facility] Last Admin: 06/15/18 12:04 Dose: 10,000 unit Furosemide (Lasix) 40 mg IVP BID [facility] Last Admin: 06/15/18 18:08 Dose: 40 mg Heparin Sodium (Porcine) (Heparin) 5,000 units SC Q8 [facility] Last Admin: 06/15/18 14:17 Dose: 5,000 units Heparin Sodium (Porcine) (Heparin (For Dialysis)) 2,200 units IVP TTS [facility] Last Admin: 06/15/18 12:05 Dose: 2,200 units Hydralazine HCl (Apresoline) 25 mg PO TID [facility] Last Admin: 06/15/18 18:03 Dose: 25 mg Hydrochlorothiazide (Hydrodiuril) 25 mg PO DAILY [facility] Last Admin: 06/15/18 14:16 Dose: 25 mg Ceftriaxone Sodium 1 gm/ (Sodium Chloride) 100 mls @ 100 mls/hr IVPB 1800 [facility]; Protocol Last Admin: 06/15/18 18:04 Dose: 100 mls/hr Insulin Aspart (Novolog) 0 unit SC ACHS [facility]; Protocol Last Admin: 06/15/18 17:26 Dose: 4 u Insulin Detemir (Levemir) 15 unit SC DAILY [facility] Last Admin: 06/15/18 08:50 Dose: 15 u Losartan Potassium (Cozaar) 100 mg PO DAILY [facility] Last Admin: 06/15/18 14:17 Dose: 100 mg Metoprolol Tartrate (Lopressor) 50 mg PO Q12H [facility] Last Admin: 06/15/18 10:46 Dose: Not Given Multivitamins (Hexavitamin) 1 tab PO DAILY [facility] Last Admin: 06/15/18 14:16 Dose: 1 tab Pantoprazole Sodium (Protonix Ec Tab) 20 mg PO DAILY [facility] Last Admin: 06/15/18 14:16 Dose: 20 mg Paricalcitol (Zemplar) 2 mcg IV TTS [facility] Last Admin: 06/15/18 12:04 Dose: 2 mcg Rosuvastatin Calcium (Crestor) 10 mg PO HS [facility] Last Admin: 06/14/18 23:00 Dose: 10 mg - Labs Labs: 06/15/18 06:50 06/15/18 06:50 PT 12.5 SECONDS (9.7-12.2) H 06/11/18 10:48 INR 1.1 06/11/18 10:48 APTT 57 SECONDS (21-34) H 06/11/18 10:48
--- NOTE | 2018-06-15 20:42 | CP.PCM.PN ---
Subjective - Date & Time of Evaluation Date of Evaluation: 06/14/18 Time of Evaluation: 17:10 - Subjective Subjective: Patient seen and evaluatedPatient seen and evaluated No cardiac events On Hemodialysis Physical Exam - Constitutional Appears: Non-toxic, No Acute Distress - ENT Exam ENT Exam: Mucous Membranes Moist - Respiratory Exam Respiratory Exam: Clear to Auscultation Bilateral, NORMAL BREATHING PATTERN - Cardiovascular Exam Cardiovascular Exam: REGULAR RHYTHM, +S1, +S2 - GI/Abdominal Exam GI & Abdominal Exam: Distended, Soft, Tenderness. absent: Firm, Guarding, Rebound, Rigid Additional comments: full, tender, distended NGT in place with bilious output Ex lap scar noted - Extremities Exam Extremities exam: Negative for: pedal edema, tenderness - Neurological Exam Neurological exam: Alert, Oriented x3 - Psychiatric Exam Psychiatric exam: Normal Affect, Normal Mood - Skin Skin Exam: Dry, Intact, Normal Color, Warm Assessment & Plan - Assessment and Plan (Free Text) Assessment: SBO improved 1. CAD s/p RCA stent 05/2016. No interval cardiac symptoms 2. Normal EF 3. HTN 4. CKD 5. ACS 6. Fevere/Sepsis? 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 EF 55% Avoid fluid overload Lasix IV as needed On initiated Objective - Vital Signs/Intake and Output Vital Signs (last 24 hours): Temp Pulse Resp BP Pulse Ox 97.8 F 73 20 166/79 H 96 06/15/18 15:00 06/15/18 18:45 06/15/18 15:00 06/15/18 18:08 06/15/18 15:00 Intake and Output: 06/15/18 06/16/18 18:59 06:59 Output Total 200 Balance -200 - Medications Medications: Current Medications Amlodipine Besylate (Norvasc) 10 mg PO DAILY [facility] Last Admin: 06/15/18 10:47 Dose: Not Given Aspirin (Ecotrin) 81 mg PO DAILY [facility] Last Admin: 06/15/18 10:45 Dose: Not Given Epoetin Manny (Procrit) 10,000 unit SC MWF [facility] Last Admin: 06/15/18 12:04 Dose: 10,000 unit Furosemide (Lasix) 40 mg IVP BID [facility] Last Admin: 06/15/18 18:08 Dose: 40 mg Heparin Sodium (Porcine) (Heparin) 5,000 units SC Q8 [facility] Last Admin: 06/15/18 14:17 Dose: 5,000 units Heparin Sodium (Porcine) (Heparin (For Dialysis)) 2,200 units IVP TTS [facility] Last Admin: 06/15/18 12:05 Dose: 2,200 units Hydralazine HCl (Apresoline) 25 mg PO TID [facility] Last Admin: 06/15/18 18:03 Dose: 25 mg Hydrochlorothiazide (Hydrodiuril) 25 mg PO DAILY [facility] Last Admin: 06/15/18 14:16 Dose: 25 mg Ceftriaxone Sodium 1 gm/ (Sodium Chloride) 100 mls @ 100 mls/hr IVPB 1800 [facility]; Protocol Last Admin: 06/15/18 18:04 Dose: 100 mls/hr Insulin Aspart (Novolog) 0 unit SC ACHS [facility]; Protocol Last Admin: 06/15/18 17:26 Dose: 4 u Insulin Detemir (Levemir) 15 unit SC DAILY [facility] Last Admin: 06/15/18 08:50 Dose: 15 u Losartan Potassium (Cozaar) 100 mg PO DAILY [facility] Last Admin: 06/15/18 14:17 Dose: 100 mg Metoprolol Tartrate (Lopressor) 50 mg PO Q12H [facility] Last Admin: 06/15/18 10:46 Dose: Not Given Multivitamins (Hexavitamin) 1 tab PO DAILY [facility] Last Admin: 06/15/18 14:16 Dose: 1 tab Pantoprazole Sodium (Protonix Ec Tab) 20 mg PO DAILY [facility] Last Admin: 06/15/18 14:16 Dose: 20 mg Paricalcitol (Zemplar) 2 mcg IV TTS [facility] Last Admin: 06/15/18 12:04 Dose: 2 mcg Rosuvastatin Calcium (Crestor) 10 mg PO HS [facility] Last Admin: 06/14/18 23:00 Dose: 10 mg - Labs Labs: 06/15/18 06:50 06/15/18 06:50 PT 12.5 SECONDS (9.7-12.2) H 06/11/18 10:48 INR 1.1 06/11/18 10:48 APTT 57 SECONDS (21-34) H 06/11/18 10:48
[2018-06-16] MEDS: (Novolog) Insulin Aspart, Recombinant 100 u/ml 10 ml vial SC SCH ×4 (08:10→22:28)
[2018-06-16 09:10] LABS: BASO # 0.2 K/uL (0.0-0.2); BASO % 1.4 % (0.0-2.0); EOS # 0.5 K/uL (0.0-0.7); EOS % 4.5 % (0.0-4.0); HEMOGLOBIN 10.8 g/dL (12.0-18.0); LYMPH # 2.1 K/uL (1.0-4.3); LYMPH % 19.8 % (20.0-40.0); MEAN CELL VOLUME 70.9 fL (80.0-94.0); MEAN CORPUSCULAR HGB CONC 31.1 g/dL (33.0-37.0); MEAN PLATELET VOLUME 9.8 fL (7.2-11.7); MONO # 1.2 K/uL (0.0-0.8); MONO % 11.1 % (0.0-10.0); NEUT # 6.7 K/uL (1.8-7.0); NEUT % 63.2 % (50.0-75.0); NRBC % 0.3 % (0.0-2.0); RBC 4.92 Mil/uL (4.40-5.90); RED CELL DISTRIBUTION WIDTH 25.3 % (11.5-14.5); WHITE BLOOD COUNT 10.7 K/uL (4.8-10.8)
--- NOTE | 2018-06-16 09:23 | CP.PCM.PN ---
Subjective - Date & Time of Evaluation Date of Evaluation: 06/16/18 Time of Evaluation: 09:20 - Subjective Subjective: chart review Vitals BP still on high side despite dose adjustment had HD yesterday patient seen in bed aware had dialysis yesterday no current complaints on feeding had bowel movement no abdominal pain Objective - Vital Signs/Intake and Output Vital Signs (last 24 hours): Temp Pulse Resp BP Pulse Ox 98.0 F 59 L 20 162/62 H 99 06/16/18 07:30 06/16/18 07:30 06/16/18 07:30 06/16/18 07:30 06/16/18 07:30 Intake and Output: 06/16/18 06/16/18 06:59 18:59 Intake Total 460 Output Total 350 Balance 110 - Medications Medications: Current Medications Amlodipine Besylate (Norvasc) 10 mg PO DAILY [facility] Last Admin: 06/15/18 10:47 Dose: Not Given Aspirin (Ecotrin) 81 mg PO DAILY [facility] Last Admin: 06/15/18 10:45 Dose: Not Given Epoetin Manny (Procrit) 10,000 unit SC MWF [facility] Last Admin: 06/15/18 12:04 Dose: 10,000 unit Furosemide (Lasix) 40 mg IVP BID [facility] Last Admin: 06/15/18 18:08 Dose: 40 mg Heparin Sodium (Porcine) (Heparin) 5,000 units SC Q8 [facility] Last Admin: 06/16/18 05:38 Dose: 5,000 units Heparin Sodium (Porcine) (Heparin (For Dialysis)) 2,200 units IVP TTS [facility] Last Admin: 06/15/18 12:05 Dose: 2,200 units Hydralazine HCl (Apresoline) 50 mg PO QID [facility] Hydrochlorothiazide (Hydrodiuril) 25 mg PO DAILY [facility] Last Admin: 06/15/18 14:16 Dose: 25 mg Ceftriaxone Sodium 1 gm/ (Sodium Chloride) 100 mls @ 100 mls/hr IVPB 1800 [facility]; Protocol Last Admin: 06/15/18 18:04 Dose: 100 mls/hr Insulin Aspart (Novolog) 0 unit SC ACHS [facility]; Protocol Last Admin: 06/16/18 08:10 Dose: 1 u Insulin Detemir (Levemir) 15 unit SC DAILY [facility] Last Admin: 06/15/18 08:50 Dose: 15 u Losartan Potassium (Cozaar) 100 mg PO DAILY [facility] Last Admin: 06/15/18 14:17 Dose: 100 mg Metoprolol Tartrate (Lopressor) 50 mg PO Q12H [facility] Last Admin: 06/15/18 22:56 Dose: 50 mg Multivitamins (Hexavitamin) 1 tab PO DAILY [facility] Last Admin: 06/15/18 14:16 Dose: 1 tab Pantoprazole Sodium (Protonix Ec Tab) 20 mg PO DAILY [facility] Last Admin: 06/15/18 14:16 Dose: 20 mg Paricalcitol (Zemplar) 2 mcg IV TTS [facility] Last Admin: 06/15/18 12:04 Dose: 2 mcg Rosuvastatin Calcium (Crestor) 10 mg PO HS [facility] Last Admin: 06/15/18 22:56 Dose: 10 mg - Labs Labs: 06/16/18 09:05 06/15/18 06:50 PT 12.5 SECONDS (9.7-12.2) H 06/11/18 10:48 INR 1.1 06/11/18 10:48 APTT 57 SECONDS (21-34) H 06/11/18 10:48 - Constitutional Appears: Non-toxic, No Acute Distress - Head Exam Head Exam: ATRAUMATIC, NORMOCEPHALIC - Eye Exam Eye Exam: Normal appearance - ENT Exam ENT Exam: Mucous Membranes Moist - Neck Exam Neck Exam: Full ROM (bandaged surgical site ) - Respiratory Exam Respiratory Exam: Decreased Breath Sounds - Cardiovascular Exam Cardiovascular Exam: REGULAR RHYTHM - GI/Abdominal Exam GI & Abdominal Exam: Soft, Normal Bowel Sounds. absent: Distended, Mass - Extremities Exam Extremities Exam: Full ROM. absent: Joint Swelling, Pedal Edema, Tenderness - Neurological Exam Neurological Exam: Alert, Awake, Normal Gait, Oriented x3 - Psychiatric Exam Psychiatric exam: Normal Affect, Normal Mood - Skin Skin Exam: Intact, Normal Color Assessment and Plan (1) Renal failure (ARF), acute on chronic Assessment & Plan: on HD and follow up, renal on case Status: Acute (2) Hypertension associated with chronic kidney disease due to type 2 diabetes mellitus Assessment & Plan: BP not on goal- adjusting medication and dose Status: Acute (3) Coronary arteriosclerosis Assessment & Plan: no chest pain on med s Status: Chronic (4) Small bowel obstruction Assessment & Plan: no symptoms, on feeding Status: Acute (5) Anemia Assessment & Plan: post HD - transfusion- improving Status: Acute (6) Diabetes mellitus Assessment & Plan: with feeding, FS is rising , will adjust insulin accordingly Status: Acute (7) CHF (congestive heart failure) Assessment & Plan: currently controlled post HD Status: Acute - Assessment and Plan (Free Text) Assessment: for subacute weekend oreder placed discussed with patient
[2018-06-16] MEDS: Multiple Vitamins Tab PO SCH (10:52)
[2018-06-16] MEDS: Insulin Detemir 100 units/ml Vial (Levemir) SC SCH (10:54)
[2018-06-16] MEDS: Pantoprazole 20 mg EC Tab PO SCH (10:56)
--- NOTE | 2018-06-16 20:53 | CP.PCM.PN ---
Subjective - Date & Time of Evaluation Date of Evaluation: 06/16/18 Time of Evaluation: 09:35 - Subjective Subjective: No cardiac events noted Stable hemodynamics On Hemodialysis Physical Exam - Constitutional Appears: Non-toxic, No Acute Distress - ENT Exam ENT Exam: Mucous Membranes Moist - Respiratory Exam Respiratory Exam: Clear to Auscultation Bilateral, NORMAL BREATHING PATTERN - Cardiovascular Exam Cardiovascular Exam: REGULAR RHYTHM, +S1, +S2 - GI/Abdominal Exam GI & Abdominal Exam: Distended, Soft, Tenderness. absent: Firm, Guarding, Rebound, Rigid Additional comments: full, tender, distended NGT in place with bilious output Ex lap scar noted - Extremities Exam Extremities exam: Negative for: pedal edema, tenderness - Neurological Exam Neurological exam: Alert, Oriented x3 - Psychiatric Exam Psychiatric exam: Normal Affect, Normal Mood - Skin Skin Exam: Dry, Intact, Normal Color, Warm Assessment & Plan - Assessment and Plan (Free Text) Assessment: SBO improved 1. CAD s/p RCA stent 05/2016. No interval cardiac symptoms 2. Normal EF 3. HTN 4. CKD on HD 5. ACS 6. Fevere/Sepsis? 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 EF 55% Objective - Vital Signs/Intake and Output Vital Signs (last 24 hours): Temp Pulse Resp BP Pulse Ox 97.8 F 68 20 147/63 99 06/16/18 15:00 06/16/18 19:00 06/16/18 15:00 06/16/18 18:10 06/16/18 15:00 - Medications Medications: Current Medications Amlodipine Besylate (Norvasc) 10 mg PO DAILY [facility] Last Admin: 06/16/18 10:52 Dose: 10 mg Aspirin (Ecotrin) 81 mg PO DAILY [facility] Last Admin: 06/16/18 10:51 Dose: 81 mg Epoetin Manny (Procrit) 10,000 unit SC MWF [facility] Last Admin: 06/15/18 12:04 Dose: 10,000 unit Furosemide (Lasix) 40 mg IVP BID [facility] Last Admin: 06/16/18 18:10 Dose: 40 mg Heparin Sodium (Porcine) (Heparin (For Dialysis)) 2,200 units IVP TTS [facility] Last Admin: 06/15/18 12:05 Dose: 2,200 units Hydralazine HCl (Apresoline) 50 mg PO QID [facility] Last Admin: 06/16/18 18:21 Dose: 50 mg Hydrochlorothiazide (Hydrodiuril) 25 mg PO DAILY [facility] Last Admin: 06/16/18 10:51 Dose: 25 mg Ceftriaxone Sodium 1 gm/ (Sodium Chloride) 100 mls @ 100 mls/hr IVPB 1800 [facility]; Protocol Last Admin: 06/16/18 17:48 Dose: 100 mls/hr Insulin Aspart (Novolog) 0 unit SC ACHS [facility]; Protocol Last Admin: 06/16/18 17:30 Dose: 1 u Insulin Detemir (Levemir) 15 unit SC DAILY [facility] Last Admin: 06/16/18 10:54 Dose: 15 u Losartan Potassium (Cozaar) 100 mg PO DAILY [facility] Last Admin: 06/16/18 10:52 Dose: 100 mg Metoprolol Tartrate (Lopressor) 50 mg PO Q12H [facility] Last Admin: 06/16/18 11:01 Dose: 50 mg Multivitamins (Hexavitamin) 1 tab PO DAILY [facility] Last Admin: 06/16/18 10:52 Dose: 1 tab Pantoprazole Sodium (Protonix Ec Tab) 20 mg PO DAILY [facility] Last Admin: 06/16/18 10:56 Dose: 20 mg Paricalcitol (Zemplar) 2 mcg IV TTS [facility] Last Admin: 06/15/18 12:04 Dose: 2 mcg Rosuvastatin Calcium (Crestor) 10 mg PO HS [facility] Last Admin: 06/15/18 22:56 Dose: 10 mg - Labs Labs: 06/16/18 09:05 06/15/18 06:50 PT 12.5 SECONDS (9.7-12.2) H 06/11/18 10:48 INR 1.1 06/11/18 10:48 APTT 57 SECONDS (21-34) H 06/11/18 10:48
[2018-06-17 07:54] LABS: BASO # 0.1 K/uL (0.0-0.2); BASO % 1.1 % (0.0-2.0); EOS # 0.5 K/uL (0.0-0.7); EOS % 4.2 % (0.0-4.0); HEMOGLOBIN 10.3 g/dL (12.0-18.0); LYMPH # 2.1 K/uL (1.0-4.3); LYMPH % 18.1 % (20.0-40.0); MEAN CELL VOLUME 70.4 fL (80.0-94.0); MEAN CORPUSCULAR HEMOGLOBIN 21.8 pg (27.0-31.0); MEAN CORPUSCULAR HGB CONC 31.1 g/dL (33.0-37.0); MEAN PLATELET VOLUME 9.7 fL (7.2-11.7); MONO # 1.1 K/uL (0.0-0.8); MONO % 9.6 % (0.0-10.0); RBC 4.7 Mil/uL (4.40-5.90); RED CELL DISTRIBUTION WIDTH 24.6 % (11.5-14.5); WHITE BLOOD COUNT 11.9 K/uL (4.8-10.8)
[2018-06-17 08:13] LABS: ALB/GLOB RATIO 1.2 (1.0-2.1); ALBUMIN 3.7 g/dL (3.5-5.0); CALCIUM 8.3 mg/dl (8.6-10.4)
[2018-06-17] MEDS: (Novolog) Insulin Aspart, Recombinant 100 u/ml 10 ml vial SC SCH ×4 (08:21→22:00)
[2018-06-17] MEDS: Epoetin Alfa 10,000 unit/ml Dialysis SC SCH (08:21)
[2018-06-17] MEDS: Multiple Vitamins Tab PO SCH (10:06)
[2018-06-17] MEDS: Pantoprazole 20 mg EC Tab PO SCH (10:06)
[2018-06-17] MEDS: Insulin Detemir 100 units/ml Vial (Levemir) SC SCH (10:07)
--- NOTE | 2018-06-17 10:18 | CP.PCM.PN ---
Subjective - Date & Time of Evaluation Date of Evaluation: 06/17/18 Time of Evaluation: 10:00 - Subjective Subjective: chart review BP meds adjustment BP improving plan for sub acute ordered patient seen patient seen no complaints daughters at bedside -discussion fsub acute discussion staff discussion- awaiyting slot and vascular acces Objective - Vital Signs/Intake and Output Vital Signs (last 24 hours): Temp Pulse Resp BP Pulse Ox 98.4 F 61 20 144/66 98 06/17/18 08:04 06/17/18 08:04 06/17/18 08:04 06/17/18 10:05 06/17/18 08:04 Intake and Output: 06/17/18 06/17/18 06:59 18:59 Intake Total 400 Output Total 100 Balance 300 - Medications Medications: Current Medications Amlodipine Besylate (Norvasc) 10 mg PO DAILY [facility] Last Admin: 06/17/18 10:06 Dose: 10 mg Aspirin (Ecotrin) 81 mg PO DAILY [facility] Last Admin: 06/17/18 10:06 Dose: 81 mg Epoetin Manny (Procrit) 10,000 unit SC MWF [facility] Last Admin: 06/17/18 08:21 Dose: 10,000 unit Furosemide (Lasix) 40 mg IVP BID [facility] Last Admin: 06/17/18 10:05 Dose: 40 mg Heparin Sodium (Porcine) (Heparin (For Dialysis)) 2,200 units IVP TTS [facility] Last Admin: 06/15/18 12:05 Dose: 2,200 units Heparin Sodium (Porcine) (Heparin) 5,000 units SC Q8 [facility] Last Admin: 06/17/18 06:52 Dose: Not Given Hydralazine HCl (Apresoline) 50 mg PO QID [facility] Last Admin: 06/17/18 10:06 Dose: 50 mg Hydrochlorothiazide (Hydrodiuril) 25 mg PO DAILY [facility] Last Admin: 06/17/18 10:06 Dose: 25 mg Ceftriaxone Sodium 1 gm/ (Sodium Chloride) 100 mls @ 100 mls/hr IVPB 1800 [facility]; Protocol Last Admin: 06/16/18 17:48 Dose: 100 mls/hr Insulin Aspart (Novolog) 0 unit SC ACHS [facility]; Protocol Last Admin: 06/17/18 08:21 Dose: 1 u Insulin Detemir (Levemir) 15 unit SC DAILY [facility] Last Admin: 06/17/18 10:07 Dose: 15 u Losartan Potassium (Cozaar) 100 mg PO DAILY [facility] Last Admin: 06/17/18 10:06 Dose: 100 mg Metoprolol Tartrate (Lopressor) 50 mg PO Q12H [facility] Last Admin: 06/17/18 10:06 Dose: 50 mg Multivitamins (Hexavitamin) 1 tab PO DAILY [facility] Last Admin: 06/17/18 10:06 Dose: 1 tab Pantoprazole Sodium (Protonix Ec Tab) 20 mg PO DAILY [facility] Last Admin: 06/17/18 10:06 Dose: 20 mg Paricalcitol (Zemplar) 2 mcg IV TTS [facility] Last Admin: 06/15/18 12:04 Dose: 2 mcg Rosuvastatin Calcium (Crestor) 10 mg PO HS [facility] Last Admin: 06/16/18 22:34 Dose: 10 mg - Labs Labs: 06/17/18 07:42 06/17/18 07:42 PT 12.5 SECONDS (9.7-12.2) H 06/11/18 10:48 INR 1.1 06/11/18 10:48 APTT 57 SECONDS (21-34) H 06/11/18 10:48 - Constitutional Appears: Well, No Acute Distress - Head Exam Head Exam: ATRAUMATIC, NORMOCEPHALIC - Eye Exam Eye Exam: Normal appearance. absent: Nystagmus - ENT Exam ENT Exam: Mucous Membranes Moist - Neck Exam Neck Exam: Full ROM. absent: Tenderness - Respiratory Exam Respiratory Exam: Decreased Breath Sounds, Clear to Ausculation Bilateral, NORMAL BREATHING PATTERN - Cardiovascular Exam Cardiovascular Exam: REGULAR RHYTHM - GI/Abdominal Exam GI & Abdominal Exam: Soft, Normal Bowel Sounds. absent: Distended, Tenderness - Extremities Exam Extremities Exam: Full ROM. absent: Joint Swelling, Pedal Edema - Back Exam Back Exam: NORMAL INSPECTION - Neurological Exam Neurological Exam: Alert, Awake, Normal Gait, Oriented x3 - Psychiatric Exam Psychiatric exam: Normal Affect, Normal Mood - Skin Skin Exam: Intact, Normal Color Assessment and Plan (1) Renal failure (ARF), acute on chronic Assessment & Plan: on HD- for vascular access while waiting for slot/subacute care Status: Acute (2) Hypertension associated with chronic kidney disease due to type 2 diabetes mellitus Assessment & Plan: BP with adjusting doses, on HD Status: Acute (3) Coronary arteriosclerosis Assessment & Plan: stable, no chest pain- as per cardio no further procedure at this point, will wait for renal to be stabilized Status: Chronic (4) Small bowel obstruction Assessment & Plan: asymptomatic with feeding with BM Status: Acute (5) Anemia Assessment & Plan: improving Status: Acute (6) Diabetes mellitus Assessment & Plan: increasing sugar with feeding will adjust insulin as needed Status: Acute (7) CHF (congestive heart failure) Assessment & Plan: stable,controlled Status: Acute - Assessment and Plan (Free Text) Assessment: 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
--- NOTE | 2018-06-17 14:04 | CP.PCM.PN ---
Subjective - Date & Time of Evaluation Date of Evaluation: 06/17/18 Time of Evaluation: 06:00 - Subjective Subjective: Patient seen and evaluated bedside. Patient states he is feeling better, eating well, denies SOB. He has been getting out of bed into chair but not walking around yet. Objective - Vital Signs/Intake and Output Vital Signs (last 24 hours): Temp Pulse Resp BP Pulse Ox 98.4 F 62 20 147/61 98 06/17/18 08:04 06/17/18 13:21 06/17/18 08:04 06/17/18 13:21 06/17/18 08:04 Intake and Output: 06/17/18 06/17/18 06:59 18:59 Intake Total 400 Output Total 100 Balance 300 - Medications Medications: Current Medications Amlodipine Besylate (Norvasc) 10 mg PO DAILY [facility] Last Admin: 06/17/18 10:06 Dose: 10 mg Aspirin (Ecotrin) 81 mg PO DAILY [facility] Last Admin: 06/17/18 10:06 Dose: 81 mg Epoetin Manny (Procrit) 10,000 unit SC MWF [facility] Last Admin: 06/17/18 08:21 Dose: 10,000 unit Furosemide (Lasix) 40 mg IVP BID [facility] Last Admin: 06/17/18 10:05 Dose: 40 mg Heparin Sodium (Porcine) (Heparin (For Dialysis)) 2,200 units IVP TTS [facility] Last Admin: 06/15/18 12:05 Dose: 2,200 units Heparin Sodium (Porcine) (Heparin) 5,000 units SC Q8 [facility] Last Admin: 06/17/18 13:21 Dose: 5,000 units Hydralazine HCl (Apresoline) 50 mg PO QID [facility] Last Admin: 06/17/18 13:21 Dose: 50 mg Hydrochlorothiazide (Hydrodiuril) 25 mg PO DAILY [facility] Last Admin: 06/17/18 10:06 Dose: 25 mg Ceftriaxone Sodium 1 gm/ (Sodium Chloride) 100 mls @ 100 mls/hr IVPB 1800 [facility]; Protocol Last Admin: 06/16/18 17:48 Dose: 100 mls/hr Insulin Aspart (Novolog) 0 unit SC ACHS [facility]; Protocol Last Admin: 06/17/18 12:02 Dose: 3 u Insulin Detemir (Levemir) 15 unit SC DAILY [facility] Last Admin: 06/17/18 10:07 Dose: 15 u Losartan Potassium (Cozaar) 100 mg PO DAILY [facility] Last Admin: 06/17/18 10:06 Dose: 100 mg Metoprolol Tartrate (Lopressor) 50 mg PO Q12H [facility] Last Admin: 06/17/18 10:06 Dose: 50 mg Multivitamins (Hexavitamin) 1 tab PO DAILY [facility] Last Admin: 06/17/18 10:06 Dose: 1 tab Pantoprazole Sodium (Protonix Ec Tab) 20 mg PO DAILY [facility] Last Admin: 06/17/18 10:06 Dose: 20 mg Paricalcitol (Zemplar) 2 mcg IV TTS [facility] Last Admin: 06/15/18 12:04 Dose: 2 mcg Rosuvastatin Calcium (Crestor) 10 mg PO HS [facility] Last Admin: 06/16/18 22:34 Dose: 10 mg - Labs Labs: 06/17/18 07:42 06/17/18 07:42 PT 12.5 SECONDS (9.7-12.2) H 06/11/18 10:48 INR 1.1 06/11/18 10:48 APTT 57 SECONDS (21-34) H 06/11/18 10:48 - Constitutional Appears: No Acute Distress - Respiratory Exam Respiratory Exam: Clear to Ausculation Bilateral - Cardiovascular Exam Cardiovascular Exam: REGULAR RHYTHM, +S1, +S2 - Extremities Exam Extremities Exam: absent: Pedal Edema - Neurological Exam Neurological Exam: Alert, Awake, Oriented x3 Assessment and Plan - Assessment and Plan (Free Text) Plan: Assessment and Plan (1) ESRD on hemodialysis Assessment & Plan: -continue HD TTS via IJ catheter until tunneled catheter placed -will f/u with vasc surgery for tunneled HD cath placement and AVF creation Status: Acute (2) Hypertensive CKD, ESRD on dialysis Assessment & Plan: -BP improving to 144/66 -continue current meds lasix, HCTZ, hydralazine, norvasc Status: Acute (3) Anemia in CKD (chronic kidney disease) Assessment & Plan: -Hgb at goal (10-11g), continue EPO on HD; no need for IV iron; Status: Acute (4) Gram negative sepsis Assessment & Plan: On ceftriaxone, no renal dose adjustment needed Status: Acute (5) Chronic kidney disease-mineral and bone disorder Assessment & Plan: -Phos just at goal (< 5.5) -phoslo 1 tab Status: Acute
--- NOTE | 2018-06-17 23:50 | CP.PCM.PN ---
Subjective - Date & Time of Evaluation Date of Evaluation: 06/17/18 Time of Evaluation: 16:15 - Subjective Subjective: Patient without cardiac events Comfortable Objective - Vital Signs/Intake and Output Vital Signs (last 24 hours): Temp Pulse Resp BP Pulse Ox 97.4 F L 59 L 20 138/58 L 97 06/17/18 15:31 06/17/18 15:31 18 15:31 06/17/18 17:31 06/17/18 15:31 Intake and Output: 06/17/18 06/18/18 18:59 06:59 Intake Total 400 Output Total 150 200 Balance 250 -200 - Medications Medications: Current Medications Amlodipine Besylate (Norvasc) 10 mg PO DAILY [facility] Last Admin: 06/17/18 10:06 Dose: 10 mg Aspirin (Ecotrin) 81 mg PO DAILY [facility] Last Admin: 06/17/18 10:06 Dose: 81 mg Epoetin Manny (Procrit) 10,000 unit SC MWF [facility] Last Admin: 06/17/18 08:21 Dose: 10,000 unit Furosemide (Lasix) 40 mg IVP BID [facility] Last Admin: 06/17/18 17:31 Dose: 40 mg Heparin Sodium (Porcine) (Heparin (For Dialysis)) 2,200 units IVP TTS [facility] Last Admin: 06/15/18 12:05 Dose: 2,200 units Heparin Sodium (Porcine) (Heparin) 5,000 units SC Q8 [facility] Last Admin: 06/17/18 22:10 Dose: 5,000 units Hydralazine HCl (Apresoline) 50 mg PO QID [facility] Last Admin: 06/17/18 22:09 Dose: 50 mg Hydrochlorothiazide (Hydrodiuril) 25 mg PO DAILY [facility] Last Admin: 06/17/18 10:06 Dose: 25 mg Ceftriaxone Sodium 1 gm/ (Sodium Chloride) 100 mls @ 100 mls/hr IVPB 1800 [facility]; Protocol Last Admin: 06/17/18 17:33 Dose: 100 mls/hr Insulin Aspart (Novolog) 0 unit SC ACHS [facility]; Protocol Last Admin: 06/17/18 17:32 Dose: 2 u Insulin Detemir (Levemir) 15 unit SC DAILY [facility] Last Admin: 06/17/18 10:07 Dose: 15 u Losartan Potassium (Cozaar) 100 mg PO DAILY [facility] Last Admin: 06/17/18 10:06 Dose: 100 mg Metoprolol Tartrate (Lopressor) 50 mg PO Q12H [facility] Last Admin: 06/17/18 22:10 Dose: 50 mg Multivitamins (Hexavitamin) 1 tab PO DAILY [facility] Last Admin: 06/17/18 10:06 Dose: 1 tab Pantoprazole Sodium (Protonix Ec Tab) 20 mg PO DAILY [facility] Last Admin: 06/17/18 10:06 Dose: 20 mg Paricalcitol (Zemplar) 2 mcg IV TTS [facility] Last Admin: 06/15/18 12:04 Dose: 2 mcg Rosuvastatin Calcium (Crestor) 10 mg PO HS [facility] Last Admin: 06/17/18 22:10 Dose: 10 mg - Labs Labs: 06/17/18 07:42 06/17/18 07:42 PT 12.5 SECONDS (9.7-12.2) H 06/11/18 10:48 INR 1.1 06/11/18 10:48 APTT 57 SECONDS (21-34) H 06/11/18 10:48
[2018-06-18] MEDS: (Novolog) Insulin Aspart, Recombinant 100 u/ml 10 ml vial SC SCH ×4 (08:16→23:23)
--- NOTE | 2018-06-18 11:13 | CP.PCM.PN ---
Subjective - Date & Time of Evaluation Date of Evaluation: 06/18/18 Time of Evaluation: 11:30 - Subjective Subjective: chart review BP noted on high side went for HD this am no unusual event patient seen on HD, no complaints' good PO intake good appetite feels good after HD discussion with staff plan for sub acute awaiting vascular access Objective - Vital Signs/Intake and Output Vital Signs (last 24 hours): Temp Pulse Resp BP Pulse Ox 97.6 F 66 16 163/70 H 66 L 06/18/18 09:07 06/18/18 09:07 06/18/18 09:07 06/18/18 09:40 06/18/18 09:07 Intake and Output: 06/18/18 06/18/18 06:59 18:59 Output Total 200 Balance -200 - Medications Medications: Current Medications Amlodipine Besylate (Norvasc) 10 mg PO DAILY [facility] Last Admin: 06/17/18 10:06 Dose: 10 mg Aspirin (Ecotrin) 81 mg PO DAILY [facility] Last Admin: 06/17/18 10:06 Dose: 81 mg Epoetin Manny (Procrit) 10,000 unit SC MWF [facility] Last Admin: 06/17/18 08:21 Dose: 10,000 unit Furosemide (Lasix) 40 mg IVP BID [facility] Last Admin: 06/18/18 10:29 Dose: Not Given Heparin Sodium (Porcine) (Heparin) 5,000 units SC Q8 [facility] Last Admin: 06/18/18 05:37 Dose: 5,000 units Hydralazine HCl (Apresoline) 50 mg PO QID [facility] Last Admin: 06/18/18 10:29 Dose: Not Given Hydrochlorothiazide (Hydrodiuril) 25 mg PO DAILY [facility] Last Admin: 06/17/18 10:06 Dose: 25 mg Ceftriaxone Sodium 1 gm/ (Sodium Chloride) 100 mls @ 100 mls/hr IVPB 1800 [facility]; Protocol Last Admin: 06/17/18 17:33 Dose: 100 mls/hr Insulin Aspart (Novolog) 0 unit SC ACHS [facility]; Protocol Last Admin: 06/18/18 08:16 Dose: 1 u Insulin Detemir (Levemir) 15 unit SC DAILY [facility] Last Admin: 06/17/18 10:07 Dose: 15 u Losartan Potassium (Cozaar) 100 mg PO DAILY [facility] Last Admin: 06/17/18 10:06 Dose: 100 mg Metoprolol Tartrate (Lopressor) 50 mg PO Q12H [facility] Last Admin: 06/17/18 22:10 Dose: 50 mg Multivitamins (Hexavitamin) 1 tab PO DAILY [facility] Last Admin: 06/17/18 10:06 Dose: 1 tab Pantoprazole Sodium (Protonix Ec Tab) 20 mg PO DAILY [facility] Last Admin: 06/17/18 10:06 Dose: 20 mg Paricalcitol (Zemplar) 2 mcg IV TTS [facility] Last Admin: 06/15/18 12:04 Dose: 2 mcg Rosuvastatin Calcium (Crestor) 10 mg PO HS [facility] Last Admin: 06/17/18 22:10 Dose: 10 mg - Labs Labs: 06/17/18 07:42 06/17/18 07:42 PT 12.5 SECONDS (9.7-12.2) H 06/11/18 10:48 INR 1.1 06/11/18 10:48 APTT 57 SECONDS (21-34) H 06/11/18 10:48 - Constitutional Appears: Non-toxic, No Acute Distress - Head Exam Head Exam: ATRAUMATIC, NORMOCEPHALIC - Eye Exam Eye Exam: Normal appearance. absent: Nystagmus - ENT Exam ENT Exam: Mucous Membranes Moist - Neck Exam Neck Exam: Full ROM. absent: Tenderness - Respiratory Exam Respiratory Exam: Decreased Breath Sounds, Clear to Ausculation Bilateral, NORMAL BREATHING PATTERN - Cardiovascular Exam Cardiovascular Exam: REGULAR RHYTHM - GI/Abdominal Exam GI & Abdominal Exam: Soft, Normal Bowel Sounds. absent: Distended - Extremities Exam Extremities Exam: Full ROM. absent: Pedal Edema - Back Exam Back Exam: Full ROM - Neurological Exam Neurological Exam: Alert, Awake, Normal Gait, Oriented x3 - Psychiatric Exam Psychiatric exam: Normal Affect, Normal Mood - Skin Skin Exam: Intact, Normal Color Assessment and Plan (1) Renal failure (ARF), acute on chronic Status: Acute (2) Hypertension associated with chronic kidney disease due to type 2 diabetes mellitus Status: Acute (3) Coronary arteriosclerosis Status: Chronic (4) Small bowel obstruction Status: Acute (5) Anemia Status: Acute (6) Diabetes mellitus Status: Acute (7) CHF (congestive heart failure) Status: Acute - Assessment and Plan (Free Text) Assessment: Patient with multiple medical prob;em Pneumonia improving CHF. ARF - on HD- improved SB) been feeding - has BM- good stable Hypertension- to adjust dose accordingly IDDM@ increasng sugar now that patient is feeding - will adjust Insulin dose accordingly for subacute, HD
--- NOTE | 2018-06-18 11:13 | VASCLAB ---
Date of service: 06/17/2018 PROCEDURE: Upper Extremity Venous Mapping HISTORY: Vein mapping, Pre-op AVF PRIORS: None. TECHNIQUE: Bilateral upper extremity, internal jugular, subclavian, axillary, brachial, ulnar, radial, basilic and upper cephalic veins were evaluated. Flow was assessed with color Doppler, compressibility, assessment of phasic flow and augmentation response. Report prepared by DAVID Keen FINDINGS: RIGHT: 1. Internal Jugular Vein: Perm-a-cath in place. 2. Subclavian Vein:Compressibility - Fully compressible: Thrombus - None : Flow - Phasic 3. Axillary Vein: Compressibility - Fully compressible: Thrombus - None 4. Brachial Vein: Compressibility - Fully compressible: Thrombus - None 5. Ulnar Vein:Compressibility - Fully compressible: Thrombus - None 6. Radial Vein:Compressibility - Fully compressible: Thrombus - None 7. Cephalic Vein: Compressibility - Fully compressible: thrombus - None 7.1. Upper Arm: Proximal Diameter: 0.33cm. Mid Diameter: 0.38cm. Distal Diameter: 0.33 7.2. Forearm: Proximal Diameter: 0.30 Mid Diameter:0.34cm. Distal Diameter: 0.22cm 8. Basilic Vein:Compressibility - Fully compressible: thrombus - None 8.1. Upper Arm:Proximal Diameter: 0.30 Mid Diameter: 0.31 Distal Diameter: 0.26cm. 8.2. Forearm: Proximal Diameter: 0.21cm. Mid Diameter:0.18cm. Distal Diameter: 0.15 LEFT: 1. Internal Jugular Vein: Compressibility - Fully compressible: Thrombus - None : Flow - Phasic 2. Subclavian Vein:Compressibility - Fully compressible: Thrombus - None : Flow - Phasic 3. Axillary Vein: Compressibility - Fully compressible: Thrombus - None 4. Brachial Vein: Compressibility - Fully compressible: Thrombus - None 5. Ulnar Vein:Compressibility - Fully compressible: Thrombus - None 6. Radial Vein:Compressibility - Fully compressible: Thrombus - None 7. Cephalic Vein: Compressibility - Fully compressible: thrombus - None 7.1. Upper Arm: Proximal Diameter: 0.22cm. Mid Diameter: 0.20cm. Distal Diameter: 0.18 7.2. Forearm: Proximal Diameter: 0.17cm. Mid Diameter:0.17cm. Distal Diameter: 0.16cm 8. Basilic Vein:Compressibility - Fully compressible: thrombus - None 8.1. Upper Arm:Proximal Diameter: 0.33cm. Mid Diameter: 0.43cm. Distal Diameter: 0.25cm. 8.2. Forearm: Proximal Diameter: 0.23cm. Mid Diameter:0.17cm. Distal Diameter: 0.20cm. OTHER FINDINGS: There was no deep or superficial venous thrombosis noted in both upper extremities. IMPRESSION: Please refer to above listed measurements for vein size.
[2018-06-18] MEDS: Insulin Detemir 100 units/ml Vial (Levemir) SC SCH (12:03)
[2018-06-18] MEDS: Paricalcitol 2 mcg/ml Inj IV SCH (12:48)
--- NOTE | 2018-06-18 13:35 | CP.PCM.PN ---
<BettyPa Suzie - Last Filed: 06/18/18 17:57> Subjective - Date & Time of Evaluation Date of Evaluation: 06/18/18 Time of Evaluation: 13:32 - Subjective Subjective: Nephrology progress note - Betty, PGY - 2 Patient seen and examined at bedside. No overnight events reported. At this time has no complaints and feels that he is tolerating hemodialysis well. Denies any diarrhea, SOB, nausea, vomiting, or chest discomfort. Objective - Vital Signs/Intake and Output Vital Signs (last 24 hours): Temp Pulse Resp BP Pulse Ox 97.3 F L 97 H 16 164/83 H 66 L 06/18/18 12:15 06/18/18 12:15 06/18/18 09:07 06/18/18 12:15 06/18/18 09:07 Intake and Output: 06/18/18 06/18/18 06:59 18:59 Output Total 200 Balance -200 - Medications Medications: Current Medications Amlodipine Besylate (Norvasc) 10 mg PO DAILY [facility] Last Admin: 06/17/18 10:06 Dose: 10 mg Aspirin (Ecotrin) 81 mg PO DAILY [facility] Last Admin: 06/17/18 10:06 Dose: 81 mg Epoetin Manny (Procrit) 10,000 unit SC MWF [facility] Last Admin: 06/17/18 08:21 Dose: 10,000 unit Furosemide (Lasix) 40 mg IVP BID [facility] Last Admin: 06/18/18 10:29 Dose: Not Given Heparin Sodium (Porcine) (Heparin) 5,000 units SC Q8 [facility] Last Admin: 06/18/18 05:37 Dose: 5,000 units Heparin Sodium (Porcine) (Heparin (For Dialysis)) 2,100 units IVP TTS [facility] Last Admin: 06/18/18 12:43 Dose: 2,100 units Hydralazine HCl (Apresoline) 50 mg PO QID [facility] Last Admin: 06/18/18 10:29 Dose: Not Given Ceftriaxone Sodium 1 gm/ (Sodium Chloride) 100 mls @ 100 mls/hr IVPB 1800 [facility]; Protocol Last Admin: 06/17/18 17:33 Dose: 100 mls/hr Insulin Aspart (Novolog) 0 unit SC ACHS [facility]; Protocol Last Admin: 06/18/18 08:16 Dose: 1 u Insulin Detemir (Levemir) 17 unit SC Q24H [facility] Losartan Potassium (Cozaar) 100 mg PO DAILY [facility] Last Admin: 06/17/18 10:06 Dose: 100 mg Metoprolol Tartrate (Lopressor) 50 mg PO Q12H [facility] Last Admin: 06/17/18 22:10 Dose: 50 mg Multivitamins (Hexavitamin) 1 tab PO DAILY [facility] Last Admin: 06/17/18 10:06 Dose: 1 tab Pantoprazole Sodium (Protonix Ec Tab) 20 mg PO DAILY [facility] Last Admin: 06/17/18 10:06 Dose: 20 mg Paricalcitol (Zemplar) 2 mcg IV TTS [facility] Last Admin: 06/18/18 12:48 Dose: 2 mcg Rosuvastatin Calcium (Crestor) 10 mg PO HS [facility] Last Admin: 06/17/18 22:10 Dose: 10 mg - Labs Labs: 06/17/18 07:42 06/17/18 07:42 PT 12.5 SECONDS (9.7-12.2) H 06/11/18 10:48 INR 1.1 06/11/18 10:48 APTT 57 SECONDS (21-34) H 06/11/18 10:48 - Constitutional Appears: Well - Head Exam Head Exam: ATRAUMATIC, NORMAL INSPECTION, NORMOCEPHALIC - Eye Exam Eye Exam: EOMI, Normal appearance, PERRL Pupil Exam: NORMAL ACCOMODATION, PERRL - ENT Exam ENT Exam: Mucous Membranes Moist, Normal Exam - Neck Exam Neck Exam: Full ROM, Normal Inspection. absent: Lymphadenopathy - Respiratory Exam Respiratory Exam: Clear to Ausculation Bilateral, NORMAL BREATHING PATTERN - Cardiovascular Exam Cardiovascular Exam: REGULAR RHYTHM, +S1, +S2. absent: Murmur - GI/Abdominal Exam GI & Abdominal Exam: Soft, Normal Bowel Sounds. absent: Tenderness - Extremities Exam Extremities Exam: Full ROM, Normal Capillary Refill, Normal Inspection. absent: Joint Swelling, Pedal Edema - Back Exam Back Exam: NORMAL INSPECTION - Neurological Exam Neurological Exam: Alert, Awake, CN II-XII Intact, Normal Gait, Oriented x3 - Psychiatric Exam Psychiatric exam: Normal Affect, Normal Mood - Skin Skin Exam: Dry, Intact, Normal Color, Warm Assessment and Plan (1) ESRD on hemodialysis Assessment & Plan: Patient tolerating dialysis well. Will consult vascular surgery regarding placement of an AV fistula as well as tunneled permacath which will be used until fistula matures. Status: Acute (2) Anemia in CKD (chronic kidney disease) Assessment & Plan: -Hgb at goal (10-11g), continue EPO on HD; no need for IV iron Status: Acute (3) Chronic kidney disease-mineral and bone disorder Assessment & Plan: -Phos just at goal (< 5.5) -phoslo 1 tab Status: Acute (4) Gram negative sepsis Assessment & Plan: On ceftriaxone, no renal dose adjustment needed Status: Acute (5) Hypertension associated with chronic kidney disease due to type 2 diabetes mellitus Assessment & Plan: -continue current meds lasix, HCTZ, hydralazine, norvasc Status: Acute <Ivan Vegas - Last Filed: 06/19/18 05:23> Objective - Vital Signs/Intake and Output Vital Signs (last 24 hours): Temp Pulse Resp BP Pulse Ox 98.2 F 62 20 117/53 L 97 06/18/18 23:35 06/18/18 23:35 06/18/18 23:35 06/18/18 23:35 06/18/18 23:35 Intake and Output: 06/18/18 06/19/18 18:59 06:59 Intake Total 300 Balance 300 - Medications Medications: Current Medications Amlodipine Besylate (Norvasc) 10 mg PO DAILY [facility] Last Admin: 06/18/18 13:44 Dose: 10 mg Aspirin (Ecotrin) 81 mg PO DAILY [facility] Last Admin: 06/18/18 13:43 Dose: 81 mg Epoetin Manny (Procrit) 10,000 unit SC MWF [facility] Last Admin: 06/17/18 08:21 Dose: 10,000 unit Furosemide (Lasix) 40 mg IVP BID [facility] Last Admin: 06/18/18 18:23 Dose: 40 mg Heparin Sodium (Porcine) (Heparin) 5,000 units SC Q8 [facility] Last Admin: 06/19/18 05:04 Dose: Not Given Heparin Sodium (Porcine) (Heparin (For Dialysis)) 2,100 units IVP TTS [facility] Last Admin: 06/18/18 12:43 Dose: 2,100 units Hydralazine HCl (Apresoline) 50 mg PO QID [facility] Last Admin: 06/18/18 22:11 Dose: 50 mg Insulin Aspart (Novolog) 0 unit SC ACHS [facility]; Protocol Last Admin: 06/18/18 23:23 Dose: Not Given Insulin Detemir (Levemir) 17 unit SC Q24H [facility] Last Admin: 06/18/18 12:03 Dose: Not Given Losartan Potassium (Cozaar) 100 mg PO DAILY [facility] Last Admin: 06/18/18 13:43 Dose: 100 mg Metoprolol Tartrate (Lopressor) 50 mg PO Q12H [facility] Last Admin: 06/18/18 22:12 Dose: 50 mg Multivitamins (Hexavitamin) 1 tab PO DAILY [facility] Last Admin: 06/18/18 13:44 Dose: 1 tab Pantoprazole Sodium (Protonix Ec Tab) 20 mg PO DAILY [facility] Last Admin: 06/18/18 13:45 Dose: 20 mg Paricalcitol (Zemplar) 2 mcg IV TTS [facility] Last Admin: 06/18/18 12:48 Dose: 2 mcg Rosuvastatin Calcium (Crestor) 10 mg PO HS [facility] Last Admin: 06/18/18 22:12 Dose: 10 mg - Labs Labs: 06/17/18 07:42 06/17/18 07:42 PT 12.5 SECONDS (9.7-12.2) H 06/11/18 10:48 INR 1.1 06/11/18 10:48 APTT 57 SECONDS (21-34) H 06/11/18 10:48 Assessment and Plan (1) ESRD on hemodialysis Status: Acute (2) Hypertensive CKD, ESRD on dialysis Status: Acute (3) Anemia in CKD (chronic kidney disease) Status: Acute (4) Gram negative sepsis Status: Acute (5) Chronic kidney disease-mineral and bone disorder Status: Acute Attending/Attestation - Attestation I have personally seen and examined this patient.: Yes I have fully participated in the care of the patient.: Yes I have reviewed all pertinent clinical information, including history, physical exam and plan: Yes Notes (Text): Providing nephrology coverage for Dr. Galeano: Patient seen and examined; I agree with the resident's note as above with the following additions/edits: 84 yo M w/ pmh of htn, dm, CAD s/p stent, and CKD IV/V, admitted with gram neg sepsis, worsening renal failure, initiated on HD last week; Patient seen on HD; low UF goal as patient is euvolemic on exam; being dialyzed via temp IJ catheter; vascular surgery to place tunneled HD cath and AVF tentatively for tomorrow; HTN of ESRD; BP improved with higher dose of hydralazine; discontinuing HCTZ (no benefit at this advanced stage of renal failure); continue rest of meds, can change lasix to PO; Anemia of CKD; hgb at goal, continue EPO on HD; Phos at goal (<5.5) off binders, can start as needed.
[2018-06-18] MEDS: Multiple Vitamins Tab PO SCH (13:44)
[2018-06-18] MEDS: Pantoprazole 20 mg EC Tab PO SCH (13:45)
--- NOTE | 2018-06-19 07:09 | CP.PCM.PN ---
Subjective - Date & Time of Evaluation Date of Evaluation: 06/18/18 Time of Evaluation: 19:30 - Subjective Subjective: No cardiac events noted Stable hemodynamics On Hemodialysis Physical Exam - Constitutional Appears: Non-toxic, No Acute Distress - ENT Exam ENT Exam: Mucous Membranes Moist - Respiratory Exam Respiratory Exam: Clear to Auscultation Bilateral, NORMAL BREATHING PATTERN - Cardiovascular Exam Cardiovascular Exam: REGULAR RHYTHM, +S1, +S2 - GI/Abdominal Exam GI & Abdominal Exam: Distended, Soft, Tenderness. absent: Firm, Guarding, Rebound, Rigid Additional comments: full, tender, distended NGT in place with bilious output Ex lap scar noted - Extremities Exam Extremities exam: Negative for: pedal edema, tenderness - Neurological Exam Neurological exam: Alert, Oriented x3 - Psychiatric Exam Psychiatric exam: Normal Affect, Normal Mood - Skin Skin Exam: Dry, Intact, Normal Color, Warm Assessment & Plan - Assessment and Plan (Free Text) Assessment: SBO improved 1. CAD s/p RCA stent 05/2016. No interval cardiac symptoms 2. Normal EF 3. HTN 4. CKD on HD 5. ACS 6. Fevere/Sepsis? 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 EF 55% Patient for AVF. Assessed as moderate cardiac risk for VA, CHF D/W with the patient and his If benefit outweighs the risk please proceed with the surgery Avoid fluid overload No further cardiac work up planned at this time Objective - Vital Signs/Intake and Output Vital Signs (last 24 hours): Temp Pulse Resp BP Pulse Ox 98.2 F 62 20 117/53 L 97 06/18/18 23:35 06/18/18 23:35 06/18/18 23:35 06/18/18 23:35 06/18/18 23:35 - Medications Medications: Current Medications Amlodipine Besylate (Norvasc) 10 mg PO DAILY [facility] Last Admin: 06/18/18 13:44 Dose: 10 mg Aspirin (Ecotrin) 81 mg PO DAILY [facility] Last Admin: 06/18/18 13:43 Dose: 81 mg Epoetin Manny (Procrit) 10,000 unit SC MWF [facility] Last Admin: 06/17/18 08:21 Dose: 10,000 unit Furosemide (Lasix) 40 mg IVP BID [facility] Last Admin: 06/18/18 18:23 Dose: 40 mg Heparin Sodium (Porcine) (Heparin) 5,000 units SC Q8 [facility] Last Admin: 06/19/18 05:04 Dose: Not Given Heparin Sodium (Porcine) (Heparin (For Dialysis)) 2,100 units IVP TTS [facility] Last Admin: 06/18/18 12:43 Dose: 2,100 units Hydralazine HCl (Apresoline) 50 mg PO QID [facility] Last Admin: 06/18/18 22:11 Dose: 50 mg Insulin Aspart (Novolog) 0 unit SC ACHS [facility]; Protocol Last Admin: 06/18/18 23:23 Dose: Not Given Insulin Detemir (Levemir) 17 unit SC Q24H [facility] Last Admin: 06/18/18 12:03 Dose: Not Given Losartan Potassium (Cozaar) 100 mg PO DAILY [facility] Last Admin: 06/18/18 13:43 Dose: 100 mg Metoprolol Tartrate (Lopressor) 50 mg PO Q12H [facility] Last Admin: 06/18/18 22:12 Dose: 50 mg Multivitamins (Hexavitamin) 1 tab PO DAILY [facility] Last Admin: 06/18/18 13:44 Dose: 1 tab Pantoprazole Sodium (Protonix Ec Tab) 20 mg PO DAILY [facility] Last Admin: 06/18/18 13:45 Dose: 20 mg Paricalcitol (Zemplar) 2 mcg IV TTS [facility] Last Admin: 06/18/18 12:48 Dose: 2 mcg Rosuvastatin Calcium (Crestor) 10 mg PO HS [facility] Last Admin: 06/18/18 22:12 Dose: 10 mg - Labs Labs: 06/17/18 07:42 06/17/18 07:42 PT 12.5 SECONDS (9.7-12.2) H 06/11/18 10:48 INR 1.1 06/11/18 10:48 APTT 57 SECONDS (21-34) H 06/11/18 10:48
[2018-06-19 08:07] LABS: BASO # 0.1 K/uL (0.0-0.2); BASO % 1.7 % (0.0-2.0); EOS # 0.3 K/uL (0.0-0.7); EOS % 4.1 % (0.0-4.0); HEMOGLOBIN 10.4 g/dL (12.0-18.0); LYMPH # 1.7 K/uL (1.0-4.3); MEAN CELL VOLUME 70.7 fL (80.0-94.0); MEAN CORPUSCULAR HEMOGLOBIN 22.1 pg (27.0-31.0); MEAN CORPUSCULAR HGB CONC 31.2 g/dL (33.0-37.0); MEAN PLATELET VOLUME 9.9 fL (7.2-11.7); MONO % 11.8 % (0.0-10.0); NEUT # 5.3 K/uL (1.8-7.0); NEUT % 62.4 % (50.0-75.0); NRBC % 0.1 % (0.0-2.0); RBC 4.73 Mil/uL (4.40-5.90); RED CELL DISTRIBUTION WIDTH 25.6 % (11.5-14.5); WHITE BLOOD COUNT 8.5 K/uL (4.8-10.8)
[2018-06-19 08:13] LABS: ALB/GLOB RATIO 1.3 (1.0-2.1); ALBUMIN 3.6 g/dL (3.5-5.0); CALCIUM 8.2 mg/dl (8.6-10.4); INR 1.2; PROTHROMBIN TIME 12.7 SECONDS (9.7-12.2)
[2018-06-19] MEDS: Multiple Vitamins Tab PO SCH (10:12)
[2018-06-19] MEDS: (Novolog) Insulin Aspart, Recombinant 100 u/ml 10 ml vial SC SCH ×4 (10:13→21:14)
[2018-06-19] MEDS: Pantoprazole 20 mg EC Tab PO SCH (10:13)
[2018-06-19] MEDS ORDERED: HEPARIN-NS 5,000 UNITS/500 ML 0 UNIT/0 ML BAG IV ONE (10:32)
[2018-06-19] MEDS ORDERED: ceFAZolin 1 gm in NS 1 GM/100 ML BAG IVPB ONE (10:33)
[2018-06-19] MEDS ORDERED: Lidocaine 2% MPF (5 ml) Inj ONE (10:38)
[2018-06-19] MEDS ORDERED: Ropivacaine 0.5% PF (20 ml) inj INJ ONE ×2 (10:39→10:57)
[2018-06-19] MEDS ORDERED: Propofol 10 mg/ml Inj (20 ML) ONE (10:40)
[2018-06-19] MEDS ORDERED: Midazolam 2 MG/2 ML VIAL ONE (10:40)
[2018-06-19] MEDS ORDERED: HEPARIN-NS 5,000 UNITS/500 ML 5,000 UNIT/500 ML BAG IV ONE (10:48)
--- NOTE | 2018-06-19 13:40 | PCM.SURG1 ---
Surgeon's Initial Post Op Note - Surgeon's Notes Surgeon: Dr. Evans Ceramic Tile Installer: Dr. Puckett PGY3 Type of Anesthesia: General IV, Block Regional Pre-Operative Diagnosis: End-stage renal disease Operative Findings: see dictation Post-Operative Diagnosis: same Operation Performed: radio-cephalic AV fistula, Right IJ permacath placement Specimen/Specimens Removed: none Estimated Blood Loss: EBL {In ML}: 12 Blood Products Given: N/A Drains Used: No Drains Post-Op Condition: Good Date of Surgery/Procedure: 06/19/18 Time of Surgery/Procedure: 13:40
[2018-06-19] MEDS ORDERED: HYDROmorphone 0.5 mg/0.5 ml ISec IVP PRN (13:47)
[2018-06-19] MEDS ORDERED: Sodium Chloride 0.9% 1,000 ML IV SCH (14:00)
--- NOTE | 2018-06-19 14:12 | RAD ---
Date of service: 06/19/2018 HISTORY: permacath placement COMPARISON: 06/12/2018. FINDINGS: Right-sided dialysis catheter terminates in the right atrium. LUNGS: The lungs are well inflated. There is mild pulmonary venous congestion. PLEURA: No pleural effusions or pneumothorax. CARDIOVASCULAR: There is moderate cardiomegaly. There are aortic atherosclerotic calcifications present. OSSEOUS STRUCTURES: Within normal limits for the patient's age. VISUALIZED UPPER ABDOMEN: Normal. OTHER FINDINGS: None. IMPRESSION: Right-sided dialysis catheter terminates in the right atrium. Moderate cardiomegaly and mild pulmonary venous congestion.
--- NOTE | 2018-06-19 15:04 | CP.PCM.PN ---
Subjective - Date & Time of Evaluation Date of Evaluation: 06/19/18 Time of Evaluation: 07:00 - Subjective Subjective: chart review vitals noted not in the room-went for ORpatient seen pos left arm vascular access and daughter by beside patient had eaten no abdominal pain plan for subacute discussion has slot for HD this time they want it near the daughter's house director social on case Objective - Vital Signs/Intake and Output Vital Signs (last 24 hours): Temp Pulse Resp BP Pulse Ox 97.8 F 74 20 156/65 H 98 06/19/18 08:28 06/19/18 08:28 06/19/18 08:28 06/19/18 08:28 06/19/18 08:28 Intake and Output: 06/19/18 06/19/18 06:59 18:59 Intake Total 600 Balance 600 - Medications Medications: Current Medications Amlodipine Besylate (Norvasc) 10 mg PO DAILY [facility] Last Admin: 06/19/18 10:13 Dose: Not Given Aspirin (Ecotrin) 81 mg PO DAILY [facility] Last Admin: 06/19/18 10:12 Dose: Not Given Epoetin Manny (Procrit) 10,000 unit SC TTS [facility] Furosemide (Lasix) 40 mg IVP BID [facility] Last Admin: 06/19/18 10:12 Dose: Not Given Heparin Sodium (Porcine) (Heparin) 5,000 units SC Q8 [facility] Last Admin: 06/19/18 05:04 Dose: Not Given Heparin Sodium (Porcine) (Heparin (For Dialysis)) 2,100 units IVP TTS [facility] Last Admin: 06/18/18 12:43 Dose: 2,100 units Hydralazine HCl (Apresoline) 50 mg PO QID [facility] Last Admin: 06/19/18 10:12 Dose: Not Given Hydromorphone HCl (Dilaudid) 0.5 mg IVP Q10M PRN PRN Reason: Pain, moderate (4-7) Stop: 06/19/18 15:48 Sodium Chloride (Sodium Chloride 0.9%) 1,000 mls @ 75 mls/hr IV .[id number] [facility] Insulin Aspart (Novolog) 0 unit SC ACHS [facility]; Protocol Last Admin: 06/19/18 10:13 Dose: Not Given Insulin Detemir (Levemir) 17 unit SC Q24H [facility] Last Admin: 06/18/18 12:03 Dose: Not Given Losartan Potassium (Cozaar) 100 mg PO DAILY [facility] Last Admin: 06/19/18 10:12 Dose: Not Given Metoprolol Tartrate (Lopressor) 50 mg PO Q12H [facility] Last Admin: 06/19/18 10:11 Dose: 50 mg Multivitamins (Hexavitamin) 1 tab PO DAILY [facility] Last Admin: 06/19/18 10:12 Dose: Not Given Ondansetron HCl (Zofran Inj) 4 mg IVP ONCE PRN PRN Reason: Nausea/Vomiting Stop: 06/19/18 15:48 Pantoprazole Sodium (Protonix Ec Tab) 20 mg PO DAILY [facility] Last Admin: 06/19/18 10:13 Dose: Not Given Paricalcitol (Zemplar) 2 mcg IV TTS [facility] Last Admin: 06/18/18 12:48 Dose: 2 mcg Rosuvastatin Calcium (Crestor) 10 mg PO HS [facility] Last Admin: 06/18/18 22:12 Dose: 10 mg - Labs Labs: 06/19/18 07:49 06/19/18 07:49 PT 12.7 SECONDS (9.7-12.2) H 06/19/18 07:49 INR 1.2 06/19/18 07:49 APTT 38 SECONDS (21-34) H 06/19/18 07:49 - Constitutional Appears: Non-toxic, No Acute Distress - Head Exam Head Exam: ATRAUMATIC, NORMOCEPHALIC - Eye Exam Eye Exam: Normal appearance - ENT Exam ENT Exam: Mucous Membranes Moist - Neck Exam Neck Exam: Full ROM. absent: Tenderness - Respiratory Exam Respiratory Exam: Decreased Breath Sounds, Clear to Ausculation Bilateral, NORMAL BREATHING PATTERN - Cardiovascular Exam Cardiovascular Exam: REGULAR RHYTHM - GI/Abdominal Exam GI & Abdominal Exam: Soft, Normal Bowel Sounds. absent: Distended, Tenderness - Extremities Exam Extremities Exam: Full ROM. absent: Pedal Edema - Neurological Exam Neurological Exam: Alert, Awake, Normal Gait, Oriented x3 - Psychiatric Exam Psychiatric exam: Normal Affect, Normal Mood - Skin Skin Exam: Intact, Normal Color Assessment and Plan - Assessment and Plan (Free Text) Assessment: patient with multiple medical problems CAD CHF IDDM2 Anemia Hypertension ESRD now on HD vascular acces done today for subacute patient and family aware of plan
[2018-06-19] MEDS: Insulin Detemir 100 units/ml Vial (Levemir) SC SCH (15:43)
--- NOTE | 2018-06-19 16:37 | RAD ---
Date of service: 06/19/2018 PROCEDURE: Intraoperative Fluoroscopy. HISTORY: RENAL FAILURE FINDINGS: Fluoroscopic assistance was provided for PermCath placement. Total fluoroscopic time (continuous mode) utilized during the procedure 19.4 seconds. Dose report: DLP [id number] (mGy/m2) . Please refer to the operative report from HANY López.
[2018-06-19] MEDS ORDERED: Insulin Detemir 100 units/ml Vial (Levemir) SC SCH (19:58)
--- NOTE | 2018-06-19 21:17 | CP.PCM.PN ---
Subjective - Date & Time of Evaluation Date of Evaluation: 06/19/18 Time of Evaluation: 17:35 - Subjective Subjective: pt is seen and examined, follow up consult is dictated #[id number] for hd in am s/p rt ijv pc and left avf Objective - Vital Signs/Intake and Output Vital Signs (last 24 hours): Temp Pulse Resp BP Pulse Ox 97.3 F L 68 20 158/72 H 99 06/19/18 15:55 06/19/18 15:55 06/19/18 15:55 06/19/18 18:29 06/19/18 15:55 Intake and Output: 06/19/18 06/20/18 18:59 06:59 Intake Total 625 Output Total 100 Balance 525 - Medications Medications: Current Medications Amlodipine Besylate (Norvasc) 10 mg PO DAILY [facility] Last Admin: 06/19/18 10:13 Dose: Not Given Aspirin (Ecotrin) 81 mg PO DAILY [facility] Last Admin: 06/19/18 10:12 Dose: Not Given Epoetin Manny (Procrit) 10,000 unit SC TTS [facility] Furosemide (Lasix) 40 mg IVP BID [facility] Last Admin: 06/19/18 18:29 Dose: 40 mg Heparin Sodium (Porcine) (Heparin) 5,000 units SC Q8 [facility] Last Admin: 06/19/18 21:12 Dose: 5,000 units Heparin Sodium (Porcine) (Heparin (For Dialysis)) 2,100 units IVP TTS [facility] Last Admin: 06/18/18 12:43 Dose: 2,100 units Hydralazine HCl (Apresoline) 50 mg PO QID [facility] Last Admin: 06/19/18 21:13 Dose: 50 mg Insulin Aspart (Novolog) 0 unit SC ACHS [facility]; Protocol Last Admin: 06/19/18 21:14 Dose: Not Given Insulin Detemir (Levemir) 19 unit SC Q24H [facility] Last Admin: 06/19/18 20:30 Dose: 19 units Losartan Potassium (Cozaar) 100 mg PO DAILY [facility] Last Admin: 06/19/18 10:12 Dose: Not Given Metoprolol Tartrate (Lopressor) 50 mg PO Q12H [facility] Last Admin: 06/19/18 21:14 Dose: 50 mg Multivitamins (Hexavitamin) 1 tab PO DAILY [facility] Last Admin: 06/19/18 10:12 Dose: Not Given Pantoprazole Sodium (Protonix Ec Tab) 20 mg PO DAILY [facility] Last Admin: 06/19/18 10:13 Dose: Not Given Paricalcitol (Zemplar) 2 mcg IV TTS [facility] Last Admin: 06/18/18 12:48 Dose: 2 mcg Rosuvastatin Calcium (Crestor) 10 mg PO HS [facility] Last Admin: 06/19/18 21:13 Dose: 10 mg - Labs Labs: 06/19/18 07:49 06/19/18 07:49 PT 12.7 SECONDS (9.7-12.2) H 06/19/18 07:49 INR 1.2 06/19/18 07:49 APTT 38 SECONDS (21-34) H 06/19/18 07:49
--- NOTE | 2018-06-20 00:07 | OP ---
PROCEDURE DATE: 06/19/2018 PREOPERATIVE DIAGNOSIS: Renal failure. POSTOPERATIVE DIAGNOSIS: Renal failure. PROCEDURE CARRIED OUT: 1. Placement of PermCath in right jugular vein with C-arm fluoroscopy, ultrasound guidance and micropuncture technique. 2. Creation of arteriovenous fistula of left wrist. SURGEON: Tate Evans Jr., MD CORPORATE CLAIMS EXAMINER: Kaylie Puckett DO ANESTHESIOLOGIST: Mr. Barron. ANESTHESIA: Local block. INDICATIONS: The patient is an elderly man with renal insufficiency, who requires dialysis, has a temporary catheter in the neck. OPERATIVE FINDINGS: The old catheter was removed. DESCRIPTION OF PROCEDURE: Using ultrasound guidance and micropuncture technique, we punctured below the previous catheter. We got into the vein uneventfully, then advanced the guidewire and sheath assembly. It originated on the right chest wall, went to the jugular vein and terminated in the superior vena cava. There was excellent return. It was secured to the skin and flushed with heparinized saline. It was a tunneled catheter. We then turned our attention to the left arm. Initially, there were not good veins visible on vein mapping etc., but after the block was administered, the veins were much better. We created a snuffbox fistula at the left wrist. The vein and artery were dissected free. They were anastomosed in an end-to-side fashion using loupe magnification and heparin anticoagulation. At the end of the procedure, there was good flow to the fistula and the procedure was terminated. Blood loss for the procedure was 25 mL. The wound was closed with 5-0 nylon sutures. Heparin was used with vessel loupe control and loupe magnification. Operation carried out was snuffbox fistula of the left wrist. Tate Evans Jr., MD cc: Ana Noel MD
--- NOTE | 2018-06-20 02:12 | PN ---
DATE: 06/19/2018 FOLLOWUP RENAL CONSULTATION LOCATION: Room 668, bed B REQUESTED BY: Ana Noel MD REASON FOR FOLLOWUP: End-stage renal disease, anemia, for continuation of hemodialysis. SUBJECTIVE: Mr. 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 The patient was placed on low Gomco suction and symptoms improved after 24 hours and started on clear liquids. His hospital course was complicated by flash pulmonary edema and also elevated troponin levels requiring transfer to ICU, placed on IV nitro and also BiPap machine and IV Lasix. His symptoms improved with worsening renal function and with elevated troponins requiring initiation of the renal replacement therapy, also found to have gram-negative sepsis, Klebsiella pneumonia. The patient is on IV antibiotics. His white count improved after IV antibiotics initiation. The patient was started hemodialysis with temporary catheter. Subsequently, his catheter was changed to right internal jugular PermCath and also radiocephalic AV fistula placement today. The patient is not in acute distress. Complains of numbness in the whole left arm, still feeling post anesthesia effect as per the patient and no tingling sensation. No cold sensation in the fingers, fingers are warm to touch. Denies any chest pain or palpitation. Denies any fever or cough. No abdominal pain. No nausea, vomiting, diarrhea. PHYSICAL EXAMINATION: GENERAL: Mr. Irving is an 83-year-old elderly Belgian male, moderately build, moderately nourished, not in acute distress. VITAL SIGNS: Blood pressure this evening 157/68, pulse 68, respiration 20, temperature 97.3, saturation 99%. Height 5 feet 4 inches, weight is 130 pounds. HEENT: Pupils normal and reactive to light and accommodation. Conjunctivae pink. Sclerae anicteric. Tongue is moist and trachea is midline. LUNGS: Symmetric on both sides. Bilateral breath sounds present. Clear to auscultation. CARDIOVASCULAR SYSTEM: [place] at the fifth intercostal space, midclavicular area. S1 and S2 audible. No murmur or gallop. ABDOMEN: Normal in appearance. Soft, tympanic. No guarding, no rigidity. No hepatosplenomegaly. The patient has a midline scar present from the previous surgery. EXTREMITIES: No cyanosis, no clubbing, no edema. Status post left radiocephalic AV fistula with good bruit. CENTRAL NERVOUS SYSTEM: The patient is alert, awake, oriented x3. Nonfocal neuro examination. Cranial nerves II-XII grossly intact. Sensory and motor system is within normal limits. LABORATORY DATA: Include as follows: As of 06/19/2018, WBC 8.5, hemoglobin 10.4, hematocrit is 33.4, MCV 70.7, and platelets 239. PT 12.7, INR 1.2, PTT 38. Sodium 135, potassium 3.8, chloride 100, CO2 29, BUN 38, creatinine 4.4, glucose 173, calcium 8.2, phosphorus 4.3 magnesium 2.1, total bili 0.5, AST 30, ALT 39, alkaline phosphatase 129, total protein 6.4, albumin is 3.9. CURRENT MEDICATIONS: Include as follows: Hydralazine 50 mg p.o. four times a day, and losartan 100 mg p.o. daily, Crestor 10 mg at bedtime, aspirin 81 mg daily, subcu heparin 5000 subcu every 8 hours, heparin in the catheter post dialysis three times a week 2100 units, hexavitamin 1 tablet daily and Lasix 40 mg IV b.i.d., Levemir 19 units subcu every 24 hours, Lopressor 50 mg p.o. every 12 hours, amlodipine 10 mg daily NovoLog for sliding scale, Procrit 10,000 units times a week, Protonix 20 mg p.o. daily, Zemplar 2 mcg IV three times a week. ASSESSMENT AND PLAN: In summary, Mr. Irving is an 83-year-old elderly very pleasant Belgian male with a history of hypertension, diabetes, hyperlipidemia, coronary artery disease status post stent placement, nephrotic range proteinuria, chronic kidney disease stage IV to V, anemia, lost followup for more than a year and admitted with small bowel obstruction, abdominal pain. His hospital course is complicated by non-ST elevation myocardial infarction and also gram-negative sepsis with worsening renal function requiring initiation of the renal replacement therapy. 1. End-stage renal disease, most likely secondary to underlying diabetic nephropathy, cannot rule out acute on chronic kidney disease V. 2. 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 3. Hypertension. Continue his current medications including hydralazine, losartan, metoprolol, and amlodipine. The patient underwent arteriovenous fistula placement and also internal jugular PermCath on the right side. The patient is stable from the renal standpoint, awaiting for the outpatient hemodialysis unit placement. Initially the patient's family agreed for [facility] dialysis center, now they are decided to go to patient's daughter's house and would like to make arrangement for the dialysis in [facility] close to the patient's daughter. We will discuss with the social service for further arrangement. We will schedule for hemodialysis in a.m. We will follow with you. Thank you for allowing me to participate in your patient's care. Aamir Galeano MD
[2018-06-20] MEDS: (Novolog) Insulin Aspart, Recombinant 100 u/ml 10 ml vial SC SCH ×4 (07:26→22:10)
--- NOTE | 2018-06-20 09:02 | CP.PCM.PN ---
Subjective - Date & Time of Evaluation Date of Evaluation: 06/20/18 Time of Evaluation: 08:54 - Subjective Subjective: Vascular Surgery Dr. Evans Pt S&E @bedside. pt underwent L AVF creation and RIJ permacath placement yesterday. pt tolerated procedure well w/ no complications. No acute events overnight. Pt has no complaints this AM. some minor discomfort at surgical site. denies F/C, N/V. tolerating diet. Objective - Vital Signs/Intake and Output Vital Signs (last 24 hours): Temp Pulse Resp BP Pulse Ox 98.2 F 67 20 165/63 H 96 06/20/18 08:31 06/20/18 08:31 06/20/18 08:31 06/20/18 08:31 06/20/18 08:31 - Medications Medications: Current Medications Amlodipine Besylate (Norvasc) 10 mg PO DAILY [facility] Last Admin: 06/19/18 10:13 Dose: Not Given Aspirin (Ecotrin) 81 mg PO DAILY [facility] Last Admin: 06/19/18 10:12 Dose: Not Given Epoetin Manny (Procrit) 10,000 unit SC TTS [facility] Furosemide (Lasix) 40 mg IVP BID [facility] Last Admin: 06/19/18 18:29 Dose: 40 mg Heparin Sodium (Porcine) (Heparin (For Dialysis)) 2,100 units IVP TTS [facility] Last Admin: 06/18/18 12:43 Dose: 2,100 units Hydralazine HCl (Apresoline) 50 mg PO QID [facility] Last Admin: 06/19/18 21:13 Dose: 50 mg Insulin Aspart (Novolog) 0 unit SC ACHS [facility]; Protocol Last Admin: 06/20/18 07:26 Dose: Not Given Insulin Detemir (Levemir) 19 unit SC Q24H [facility] Last Admin: 06/19/18 20:30 Dose: 19 units Losartan Potassium (Cozaar) 100 mg PO DAILY [facility] Last Admin: 06/19/18 10:12 Dose: Not Given Metoprolol Tartrate (Lopressor) 50 mg PO Q12H [facility] Last Admin: 06/19/18 21:14 Dose: 50 mg Multivitamins (Hexavitamin) 1 tab PO DAILY [facility] Last Admin: 06/19/18 10:12 Dose: Not Given Pantoprazole Sodium (Protonix Ec Tab) 20 mg PO DAILY [facility] Last Admin: 02/20/19 10:13 Dose: Not Given Paricalcitol (Zemplar) 2 mcg IV TTS [facility] Last Admin: 06/18/18 12:48 Dose: 2 mcg Rosuvastatin Calcium (Crestor) 10 mg PO HS [facility] Last Admin: 06/19/18 21:13 Dose: 10 mg - Labs Labs: 06/19/18 07:49 06/19/18 07:49 PT 12.7 SECONDS (9.7-12.2) H 06/19/18 07:49 INR 1.2 06/19/18 07:49 APTT 38 SECONDS (21-34) H 06/19/18 07:49 - Constitutional Appears: Non-toxic, No Acute Distress - Head Exam Head Exam: NORMAL INSPECTION - Eye Exam Eye Exam: Normal appearance - ENT Exam ENT Exam: Mucous Membranes Moist - Respiratory Exam Respiratory Exam: NORMAL BREATHING PATTERN. absent: Accessory Muscle Use, Decreased Breath Sounds - Cardiovascular Exam Cardiovascular Exam: REGULAR RHYTHM. absent: Bradycardia, Tachycardia - GI/Abdominal Exam GI & Abdominal Exam: Soft. absent: Tenderness - Extremities Exam Additional comments: palpable thrill palpable radial artery - Neurological Exam Neurological Exam: Alert, Awake, Oriented x3 - Psychiatric Exam Psychiatric exam: Normal Affect, Normal Mood - Skin Skin Exam: Dry, Intact, Normal Color, Warm Assessment and Plan - Assessment and Plan (Free Text) Assessment: 83 y/o M w/ ESRD POD#1 s/p L radiocephalic AVF and RIJ permacath placement Plan: - cont HD via permacath - monitor site for bleeding - vascular checks Qshift - no further surgical intervention needed Further recs per Dr. Nathan Puckett DO PGY3
[2018-06-20] MEDS ORDERED: Epoetin Alfa 10,000 unit/ml Dialysis SC SCH (10:00)
--- NOTE | 2018-06-20 10:29 | CP.PCM.PN ---
Subjective - Date & Time of Evaluation Date of Evaluation: 06/20/18 Time of Evaluation: 10:00 - Subjective Subjective: chart review BP still uncontrolled despite HD sugar rising -on Insulin no unusual event overnight patient seen in HD conversant no complaint feeding no abdominal pain SBO is resolved discussion with CM- has to change subacute as per daughter lives far away Objective - Vital Signs/Intake and Output Vital Signs (last 24 hours): Temp Pulse Resp BP Pulse Ox 98.2 F 67 20 165/63 H 96 06/20/18 08:31 06/20/18 08:31 06/20/18 08:31 06/20/18 08:31 06/20/18 08:31 - Medications Medications: Current Medications Amlodipine Besylate (Norvasc) 10 mg PO DAILY [facility] Last Admin: 06/19/18 10:13 Dose: Not Given Aspirin (Ecotrin) 81 mg PO DAILY [facility] Last Admin: 06/19/18 10:12 Dose: Not Given Epoetin Manny (Procrit) 10,000 unit SC TTS [facility] Furosemide (Lasix) 40 mg IVP BID [facility] Last Admin: 06/19/18 18:29 Dose: 40 mg Heparin Sodium (Porcine) (Heparin (For Dialysis)) 2,100 units IVP TTS [facility] Last Admin: 06/18/18 12:43 Dose: 2,100 units Hydralazine HCl (Apresoline) 100 mg PO TID [facility] Insulin Aspart (Novolog) [facility]; Protocol Last Admin: 06/20/18 07:26 Dose: Not Given Insulin Detemir (Levemir) 22 unit SC Q24H [facility] Losartan Potassium (Cozaar) 100 mg PO DAILY [facility] Last Admin: 06/19/18 10:12 Dose: Not Given Metoprolol Tartrate (Lopressor) 50 mg PO Q12H [facility] Last Admin: 06/19/18 21:14 Dose: 50 mg Multivitamins (Hexavitamin) 1 tab PO DAILY [facility] Last Admin: 06/19/18 10:12 Dose: Not Given Pantoprazole Sodium (Protonix Ec Tab) 20 mg PO DAILY [facility] Last Admin: 06/19/18 10:13 Dose: Not Given Paricalcitol (Zemplar) 2 mcg IV TTS [facility] Last Admin: 06/18/18 12:48 Dose: 2 mcg Rosuvastatin Calcium (Crestor) 10 mg PO HS [facility] Last Admin: 06/19/18 21:13 Dose: 10 mg - Labs Labs: 06/19/18 07:49 06/19/18 07:49 PT 12.7 SECONDS (9.7-12.2) H 06/19/18 07:49 INR 1.2 06/19/18 07:49 APTT 38 SECONDS (21-34) H 06/19/18 07:49 - Constitutional Appears: Non-toxic - Head Exam Head Exam: ATRAUMATIC, NORMOCEPHALIC - Eye Exam Eye Exam: Normal appearance - Cardiovascular Exam Cardiovascular Exam: REGULAR RHYTHM - GI/Abdominal Exam GI & Abdominal Exam: Soft, Normal Bowel Sounds. absent: Distended, Tenderness - Neurological Exam Neurological Exam: Alert, Awake, Normal Gait, Oriented x3 - Psychiatric Exam Psychiatric exam: Normal Affect, Normal Mood - Skin Skin Exam: Intact, Normal Color Assessment and Plan - Assessment and Plan (Free Text) Plan: Patient with ESRD on HD for subacute awaiting slot Hypertension- stiull on the high side- adjust BP meds accordingly CAD chest pain free CHF - on lasix, HD IDDM2- rising sugar- will adjust dose accordingly for sub acute/PT /HD patient anf family aware of condition and plan
--- NOTE | 2018-06-20 10:36 | CP.PCM.PN ---
Subjective - Date & Time of Evaluation Date of Evaluation: 06/20/18 Time of Evaluation: 10:36 - Subjective Subjective: pt is seen and examined, follow up consult is dictated #[id number] seen in hemodialysis Objective - Vital Signs/Intake and Output Vital Signs (last 24 hours): Temp Pulse Resp BP Pulse Ox 98.7 F 75 16 174/64 H 98 06/20/18 10:28 06/20/18 10:28 06/20/18 10:28 06/20/18 10:28 06/20/18 09:00 - Medications Medications: Current Medications Amlodipine Besylate (Norvasc) 10 mg PO DAILY [facility] Last Admin: 06/19/18 10:13 Dose: Not Given Aspirin (Ecotrin) 81 mg PO DAILY [facility] Last Admin: 06/19/18 10:12 Dose: Not Given Epoetin Manny (Procrit) 10,000 unit SC TTS [facility] Furosemide (Lasix) 40 mg IVP BID [facility] Last Admin: 06/19/18 18:29 Dose: 40 mg Heparin Sodium (Porcine) (Heparin (For Dialysis)) 2,100 units IVP TTS [facility] Last Admin: 06/18/18 12:43 Dose: 2,100 units Hydralazine HCl (Apresoline) 100 mg PO TID [facility] Insulin Aspart (Novolog) 0 unit SC [facility]; Protocol Last Admin: 06/20/18 07:26 Dose: Not Given Insulin Detemir (Levemir) 22 unit SC Q24H [facility] Losartan Potassium (Cozaar) 100 mg PO DAILY [facility] Last Admin: 06/19/18 10:12 Dose: Not Given Metoprolol Tartrate (Lopressor) 50 mg PO Q12H [facility] Last Admin: 06/19/18 21:14 Dose: 50 mg Multivitamins (Hexavitamin) 1 tab PO DAILY [facility] Last Admin: 06/19/18 10:12 Dose: Not Given Pantoprazole Sodium (Protonix Ec Tab) 20 mg PO DAILY [facility] Last Admin: 06/19/18 10:13 Dose: Not Given Paricalcitol (Zemplar) 2 mcg IV TTS [facility] Last Admin: 06/18/18 12:48 Dose: 2 mcg Rosuvastatin Calcium (Crestor) 10 mg PO HS [facility] Last Admin: 06/19/18 21:13 Dose: 10 mg - Labs Labs: 06/19/18 07:49 06/19/18 07:49 PT 12.7 SECONDS (9.7-12.2) H 06/19/18 07:49 INR 1.2 06/19/18 07:49 APTT 38 SECONDS (21-34) H 06/19/18 07:49
[2018-06-20] MEDS: Multiple Vitamins Tab PO SCH (11:29)
[2018-06-20] MEDS: Pantoprazole 20 mg EC Tab PO SCH (11:30)
[2018-06-20] MEDS: Paricalcitol 2 mcg/ml Inj IV SCH (12:22)
[2018-06-20] MEDS: Epoetin Alfa 10,000 unit/ml Dialysis IV SCH (13:15)
[2018-06-20] MEDS: Insulin Detemir 100 units/ml Vial (Levemir) SC SCH (13:42)
--- NOTE | 2018-06-21 08:05 | PN ---
DATE: 06/20/2018 FOLLOWUP RENAL CONSULTATION LOCATION: The patient is located in room 668, bed B. REQUESTED BY: Ana Noel MD REASON FOR RENAL CONSULTATION: End-stage renal disease for continuation of hemodialysis. SUBJECTIVE: Ha Irving is an 83-year-old elderly [place] male with a history of longstanding hypertension, diabetes, coronary artery disease status post stent placement, CAD, proteinuria, anemia, was admitted with abdominal pain, distention and admitted for a small bowel obstruction status post low Gomco suction placement for 24 hours and symptoms improved. Subsequently his hospital course complicated by flash pulmonary edema and elevated troponin levels requiring transfer to ICU and placed on the BiPAP, IV nitro and IV Lasix and symptoms improved. His hospital course also complicated in ICU by gram-negative sepsis with Klebsiella pneumonia and with elevated WBC count started on IV antibiotics with worsening renal function requiring initiation of the renal replacement therapy. The patient is feeling better, not in acute distress and denies any complaints. No chest pain or palpitation. No fever. No cough. Status post right intrajugular PermCath and also left forearm AV fistula. The patient denies any chest pain or palpitation. Denies any fever or cough. No abdominal pain. No nausea, vomiting, diarrhea. The patient was seen and examined during hemodialysis today. UF goal is about 500 mL. PHYSICAL EXAMINATION: VITAL SIGNS: Blood pressure 174/64, pulse 75, respirations 16, temperature 98.7 and saturation 100%. Height 5 feet 4 inches, weight is 130 pounds. GENERAL: Mr. Irving is an 83-year-old elderly [place] male, moderately built, moderately nourished, not in acute distress. HEENT: Pupils normal, react to light and accommodation. Conjunctivae pink, sclerae anicteric. Tongue is moist and trachea is midline. LUNGS: Symmetric on both sides. Bilateral breath sounds present. Clear to auscultation. CVS: [place] in the fifth intercostal space, midclavicular line. S1, S2, audible. No murmur or gallop. ABDOMEN: Normal in appearance, soft, tympanitic. No guarding. No hepatosplenomegaly. 4[employer]ER: The patient is alert, awake, oriented x3. Nonfocal neuro examination. Cranial nerves II-XII grossly intact. Sensory and motor system is within normal limits. EXTREMITIES: No cyanosis, no clubbing, no edema. CURRENT MEDICATIONS: Include as follows, hydralazine 100 mg p.o. t.i.d., losartan 100 mg p.o. daily, Crestor 10 mg p.o. at bedtime, aspirin 81 mg daily, heparin 3700 units intracatheter three times a week, multivitamin 1 tablet daily, Lasix 40 mg IV b.i.d., Levemir 22 units subcu every 24 hours, metoprolol 15 every 12 hours, amlodipine 10 mg daily, Epogen 75705 units three times a week, Protonix 20 mg p.o. daily and Zemplar 2 mcg IV three times a week. LABORATORY DATA: No new labs available. As of 06/19/2018, WBC 8.5, hemoglobin 10.4 and hematocrit is 33.4, platelets 239. PT 12.7, PTT 38. Sodium 135, potassium 3.8, chloride 100, CO2 29, BUN38, creatinine 4.4, glucose 173, calcium 8.2, phosphorus 4.3, magnesium 2.1. Total bili 0.3, AST 30, ALT 39, alkaline phos 129, total protein 6.4, albumin is 3.6. Accu-Cheks last night 188 and this morning 155. ASSESSMENT: In summary, Mr. Irving is an 83-year-old elderly very pleasant [place] male with history of longstanding hypertension, diabetes, coronary artery disease status post stents, hyperlipidemia, proteinuria, anemia, was admitted with small bowel obstruction, nausea, vomiting, abdominal pain status post low Gomco suction and status post treatment for flash pulmonary edema and treatment for gram-negative sepsis with Klebsiella pneumonia, status post right intrajugular PermCath and the left upper extremity arteriovenous fistula. 1. End-stage renal disease, most likely secondary to diabetic nephropathy. 2. Hypertension. 3. Diabetes. 4. Anemia secondary to renal failure and cannot rule out alpha thalassemia. PLAN: Continue hemodialysis three times a week. Continue Epogen and Zemplar. Continue his current antihypertensive medications hydralazine, metoprolol, amlodipine and losartan and continue GI prophylaxis with Protonix. The patient is awaiting outpatient hemodialysis unit placement in [facility] where he would like to stay with his daughter. Initially family requested [facility], now family changed their mind that he is going to move to his daughter's house, so social work coordinator in working up for outpatient hemodialysis unit placement. Thank you for allowing me to participate in your patient's care. The patient was seen and examined during dialysis this morning. Aamir Galeano MD
[2018-06-21] MEDS: (Novolog) Insulin Aspart, Recombinant 100 u/ml 10 ml vial SC SCH ×3 (08:44→21:59)
[2018-06-21] MEDS: Pantoprazole 20 mg EC Tab PO SCH (10:19)
[2018-06-21] MEDS: Insulin Detemir 100 units/ml Vial (Levemir) SC SCH (10:19)
[2018-06-21] MEDS: Multiple Vitamins Tab PO SCH (10:21)
--- NOTE | 2018-06-21 14:16 | CP.PCM.PN ---
Subjective - Date & Time of Evaluation Date of Evaluation: 06/21/18 Time of Evaluation: 12:30 - Subjective Subjective: patient's chart reviewed BP running high patient seen- eating no pain, no vomting BM good no chest pain awaiting for transfer family changes place of subacute Objective - Vital Signs/Intake and Output Vital Signs (last 24 hours): Temp Pulse Resp BP Pulse Ox 98.9 F 69 20 171/59 H 98 06/21/18 07:00 06/21/18 07:00 06/21/18 07:00 06/21/18 10:19 06/21/18 07:00 - Medications Medications: Current Medications Amlodipine Besylate (Norvasc) 10 mg PO DAILY [facility] Last Admin: 06/21/18 10:19 Dose: 10 mg Aspirin (Ecotrin) 81 mg PO DAILY [facility] Last Admin: 06/21/18 10:18 Dose: 81 mg Epoetin Manny (Procrit) 10,000 unit IV TTS [facility] Last Admin: 06/20/18 13:15 Dose: 10,000 unit Furosemide (Lasix) 40 mg IVP BID [facility] Last Admin: 06/21/18 10:19 Dose: 40 mg Heparin Sodium (Porcine) (Heparin (For Dialysis)) 3,700 units IVP TTS [facility] Last Admin: 06/20/18 12:23 Dose: 3,700 units Hydralazine HCl (Apresoline) 100 mg PO TID [facility] Last Admin: 06/21/18 10:18 Dose: 100 mg Insulin Aspart (Novolog) 0 unit SC ACHS [facility]; Protocol Last Admin: 06/21/18 08:44 Dose: Not Given Insulin Detemir (Levemir) 22 unit SC Q24H [facility] Last Admin: 06/21/18 10:19 Dose: 22 u Losartan Potassium (Cozaar) 100 mg PO DAILY [facility] Last Admin: 06/21/18 10:19 Dose: 100 mg Metoprolol Tartrate (Lopressor) 50 mg PO Q12H [facility] Last Admin: 06/20/18 22:12 Dose: 50 mg Multivitamins (Hexavitamin) 1 tab PO DAILY [facility] Last Admin: 06/21/18 10:21 Dose: 1 tab Pantoprazole Sodium (Protonix Ec Tab) 20 mg PO DAILY [facility] Last Admin: 06/21/18 10:19 Dose: 20 mg Paricalcitol (Zemplar) 2 mcg IV TTS [facility] Last Admin: 06/20/18 12:22 Dose: 2 mcg Rosuvastatin Calcium (Crestor) 10 mg PO HS [facility] Last Admin: 06/20/18 22:09 Dose: 10 mg - Labs Labs: 06/19/18 07:49 06/19/18 07:49 PT 12.7 SECONDS (9.7-12.2) H 06/19/18 07:49 INR 1.2 06/19/18 07:49 APTT 38 SECONDS (21-34) H 06/19/18 07:49 - Constitutional Appears: Non-toxic, No Acute Distress - Head Exam Head Exam: ATRAUMATIC, NORMOCEPHALIC - Eye Exam Eye Exam: absent: Nystagmus - ENT Exam ENT Exam: Mucous Membranes Moist - Respiratory Exam Respiratory Exam: Decreased Breath Sounds, Clear to Ausculation Bilateral, NORMAL BREATHING PATTERN - Cardiovascular Exam Cardiovascular Exam: REGULAR RHYTHM - GI/Abdominal Exam GI & Abdominal Exam: Soft, Normal Bowel Sounds. absent: Tenderness - Extremities Exam Extremities Exam: Full ROM. absent: Pedal Edema - Neurological Exam Neurological Exam: Alert, Awake, Normal Gait, Oriented x3 - Skin Skin Exam: Intact, Normal Color Assessment and Plan - Assessment and Plan (Free Text) Assessment: Patient with multiple medical problemsnow with ESRD on HD - subacute transfer ongoing Hypertension-meds adjusted- will monitor IDDM@- Insulin and adjust accordingly CAD AFib HF, on meds,controlled Debility SBO resolved for sub acute on HD
--- NOTE | 2018-06-21 19:11 | CP.PCM.PN ---
Subjective - Date & Time of Evaluation Date of Evaluation: 06/21/18 Time of Evaluation: 19:11 - Subjective Subjective: pt is seen and examined, follow up consult is dictated #[id number] for hd tomorrow Objective - Vital Signs/Intake and Output Vital Signs (last 24 hours): Temp Pulse Resp BP Pulse Ox 97.8 F 71 20 134/68 100 06/21/18 15:00 06/21/18 15:00 06/21/18 15:00 06/21/18 17:36 06/21/18 15:00 - Medications Medications: Current Medications Amlodipine Besylate (Norvasc) 10 mg PO DAILY [facility] Last Admin: 06/21/18 10:19 Dose: 10 mg Aspirin (Ecotrin) 81 mg PO DAILY [facility] Last Admin: 06/21/18 10:18 Dose: 81 mg Epoetin Manny (Procrit) 10,000 unit IV TTS [facility] Last Admin: 06/20/18 13:15 Dose: 10,000 unit Furosemide (Lasix) 40 mg IVP BID [facility] Last Admin: 06/21/18 17:36 Dose: 40 mg Heparin Sodium (Porcine) (Heparin (For Dialysis)) 3,700 units IVP TTS [facility] Last Admin: 06/20/18 12:23 Dose: 3,700 units Hydralazine HCl (Apresoline) 100 mg PO TID [facility] Last Admin: 06/21/18 17:35 Dose: 100 mg Insulin Aspart (Novolog) 0 unit SC ACHS [facility]; Protocol Last Admin: 06/21/18 17:34 Dose: 3 u Insulin Detemir (Levemir) 22 unit SC Q24H [facility] Last Admin: 06/21/18 10:19 Dose: 22 u Losartan Potassium (Cozaar) 100 mg PO DAILY [facility] Last Admin: 06/21/18 10:19 Dose: 100 mg Metoprolol Tartrate (Lopressor) 50 mg PO Q12H [facility] Last Admin: 06/20/18 22:12 Dose: 50 mg Multivitamins (Hexavitamin) 1 tab PO DAILY [facility] Last Admin: 06/21/18 10:21 Dose: 1 tab Pantoprazole Sodium (Protonix Ec Tab) 20 mg PO DAILY [facility] Last Admin: 06/21/18 10:19 Dose: 20 mg Paricalcitol (Zemplar) 2 mcg IV TTS [facility] Last Admin: 06/20/18 12:22 Dose: 2 mcg Rosuvastatin Calcium (Crestor) 10 mg PO HS [facility] Last Admin: 06/20/18 22:09 Dose: 10 mg - Labs Labs: 06/19/18 07:49 06/19/18 07:49 PT 12.7 SECONDS (9.7-12.2) H 06/19/18 07:49 INR 1.2 06/19/18 07:49 APTT 38 SECONDS (21-34) H 06/19/18 07:49
--- NOTE | 2018-06-22 03:12 | PN ---
DATE: 06/21/2018 FOLLOWUP RENAL CONSULTATION LOCATION: The patient is located in room 668, bed B. REQUESTED BY: Ana Noel MD REASON FOR FOLLOWUP: End-stage renal disease, continuation of hemodialysis. SUBJECTIVE: Mr. Irving is an 83-year-old elderly very pleasant [place] male with a history of longstanding hypertension, diabetes, hyperlipidemia, coronary artery disease, status post stent placement about 10 years ago, nephrotic-range proteinuria, anemia who was admitted initially to the hospital with abdominal distention and pain, nausea and vomiting and found to have a high-grade small-bowel obstruction. Subsequently, the patient was placed on low [place]om[place] suction. His symptoms improved after 24 hours. Also, the patient developed flash pulmonary edema and NSTEMI. Also, the patient was found to have gram-negative sepsis. Blood culture was positive for Klebsiella pneumoniae in the ICU with elevated WBC count, started on IV antibiotics. Also, the patient developed worsening renal function since admission, requiring initiation of the renal replacement therapy. The patient underwent right internal jugular PermCath and also left forearm AV fistula. The patient denies any complaints. Denies any chest pain or palpitation. Denies any fever or cough. No abdominal pain. No nausea, vomiting, or diarrhea. PHYSICAL EXAMINATION: VITAL SIGNS: As follows: Blood pressure 134/68, pulse 71, respiration 20, temperature 97.8, saturation 100%. Height 5 feet 4 inches. Weight is 130 pounds. GENERAL: Mr. Irving is an 83-year-old elderly male, moderately built, moderate nourished, not in acute distress. HEENT: Pupils are normal and reactive to light and accommodation. Conjunctivae pink. Sclerae anicteric. Tongue is moist. Trachea is midline. LUNGS: Symmetric on both sides. Bilateral breath sounds present. Clear to auscultation. CARDIOVASCULAR SYSTEM: [place] at the fifth intercostal space, midclavicular line. S1 and S2 audible. No murmur or gallop. ABDOMEN: Normal in appearance. Soft, tympanitic. No guarding. No rigidity. No hepatosplenomegaly. CENTRAL NERVOUS SYSTEM: The patient is alert, awake, oriented x3. Nonfocal neuro examination. Cranial nerves II through XII grossly intact. Sensory and motor system is within normal limits. EXTREMITIES: No cyanosis, no clubbing, no edema. CURRENT MEDICATIONS: Include as follows: Hydralazine 100 mg p.o. t.i.d., losartan 100 mg p.o. daily, Crestor 10 mg daily, aspirin 81 mg daily, heparin 3700 units three times a week in the dialysis catheter, multivitamin one tablet daily, Lasix 40 mg IV b.i.d., Levemir 22 units subcu daily, metoprolol 50 mg p.o. every 12 hours, amlodipine 10 mg daily, Epogen 10,000 units three times a week, Protonix 20 mg p.o. daily, Zemplar 2 mcg three times a week. LABORATORY DATA: No new labs are available. Accu-Cheks, 100, 415, and 267. ASSESSMENT AND PLAN: In summary, Mr. Irving is an 83-year-old elderly [place] male with a history of longstanding hypertension, diabetes, hyperlipidemia, coronary artery disease, status post stent placement, anemia, proteinuria, chronic kidney disease with a baseline creatinine about 4.2 a few months ago who was admitted with shortness of breath, abdominal pain and distention and found to have high-grade small-bowel obstruction. 1. End-stage renal disease. Continue hemodialysis three times a week. 2. Hypertension. 3. Diabetes. 4. Ucf-CV-dmovhofoa myocardial infarction. 5. Anemia secondary to renal failure and cannot rule out alpha thalassemia. 6. Status post Klebsiella pneumoniae sepsis. The patient is waiting for the outpatient hemodialysis unit placement in [facility] where the patient is going to stay with his daughter for the next one month until his comes back home. Discussed with the patient and the patient's daughter at bedside this evening. Repeat labs in the morning. Thank you for allowing me to participate in your patient's care. Aamir Galeano MD
--- NOTE | 2018-06-22 09:14 | CP.PCM.PN ---
Subjective - Date & Time of Evaluation Date of Evaluation: 06/22/18 Time of Evaluation: 01:20 - Subjective Subjective: chart review vitals BP noted, afebrile lab= noted high sugar last night no unusual event overnight patient seen, feeding self, conversant, no complaint on HD shedule awaiting transfer aware of condition and plan Objective - Vital Signs/Intake and Output Vital Signs (last 24 hours): Temp Pulse Resp BP Pulse Ox 98.1 F 68 20 151/57 H 98 06/22/18 08:36 06/22/18 08:36 06/22/18 08:36 06/22/18 08:36 06/22/18 08:36 Intake and Output: 06/22/18 06/22/18 06:59 18:59 Output Total 300 Balance -300 - Medications Medications: Current Medications Amlodipine Besylate (Norvasc) 10 mg PO DAILY [facility] Last Admin: 06/21/18 10:19 Dose: 10 mg Aspirin (Ecotrin) 81 mg PO DAILY [facility] Last Admin: 06/21/18 10:18 Dose: 81 mg Epoetin Manny (Procrit) 10,000 unit IV TTS [facility] Last Admin: 06/20/18 13:15 Dose: 10,000 unit Furosemide (Lasix) 40 mg IVP BID [facility] Last Admin: 06/21/18 17:36 Dose: 40 mg Heparin Sodium (Porcine) (Heparin (For Dialysis)) 3,700 units IVP TTS [facility] Last Admin: 06/20/18 12:23 Dose: 3,700 units Hydralazine HCl (Apresoline) 100 mg PO TID [facility] Last Admin: 06/21/18 17:35 Dose: 100 mg Insulin Aspart (Novolog) 0 unit SC ACHS [facility]; Protocol Last Admin: 06/21/18 21:59 Dose: Not Given Insulin Detemir (Levemir) 22 unit SC Q24H [facility] Last Admin: 06/21/18 10:19 Dose: 22 u Losartan Potassium (Cozaar) 100 mg PO DAILY [facility] Last Admin: 06/21/18 10:19 Dose: 100 mg Metoprolol Tartrate (Lopressor) 50 mg PO Q12H [facility] Last Admin: 06/21/18 21:45 Dose: 50 mg Multivitamins (Hexavitamin) 1 tab PO DAILY [facility] Last Admin: 06/21/18 10:21 Dose: 1 tab Pantoprazole Sodium (Protonix Ec Tab) 20 mg PO DAILY [facility] Last Admin: 06/21/18 10:19 Dose: 20 mg Paricalcitol (Zemplar) 2 mcg IV TTS [facility] Last Admin: 06/20/18 12:22 Dose: 2 mcg Rosuvastatin Calcium (Crestor) 10 mg PO HS [facility] Last Admin: 06/21/18 21:45 Dose: 10 mg - Labs Labs: 06/19/18 07:49 06/19/18 07:49 PT 12.7 SECONDS (9.7-12.2) H 06/19/18 07:49 INR 1.2 06/19/18 07:49 APTT 38 SECONDS (21-34) H 06/19/18 07:49 - Constitutional Appears: Non-toxic, No Acute Distress - Head Exam Head Exam: ATRAUMATIC, NORMOCEPHALIC - Eye Exam Eye Exam: Normal appearance. absent: Nystagmus - ENT Exam ENT Exam: Mucous Membranes Moist - Neck Exam Neck Exam: Full ROM. absent: Tenderness - Respiratory Exam Respiratory Exam: Decreased Breath Sounds, Clear to Ausculation Bilateral, NORMAL BREATHING PATTERN - Cardiovascular Exam Cardiovascular Exam: REGULAR RHYTHM - GI/Abdominal Exam GI & Abdominal Exam: Soft, Normal Bowel Sounds. absent: Distended, Tenderness - Extremities Exam Extremities Exam: Full ROM. absent: Pedal Edema - Neurological Exam Neurological Exam: Alert, Awake, Normal Gait, Oriented x3 - Psychiatric Exam Psychiatric exam: Normal Affect, Normal Mood - Skin Skin Exam: Intact, Normal Color Assessment and Plan - Assessment and Plan (Free Text) Assessment: Patient with multiple medical problem [facility] ongoing Hypertension- bp meds adjusted - monitor Afib CAD CHF IDDM2 DeBility Anemia DVT and GI prophylaxis ongoing monitoring and adjust medication dose as needed
[2018-06-22] MEDS: Insulin Detemir 100 units/ml Vial (Levemir) SC SCH (10:44)
[2018-06-22] MEDS: Multiple Vitamins Tab PO SCH (10:44)
[2018-06-22] MEDS: Pantoprazole 20 mg EC Tab PO SCH (10:45)
[2018-06-22] MEDS: Paricalcitol 2 mcg/ml Inj IV SCH (11:16)
[2018-06-22] MEDS: Epoetin Alfa 10,000 unit/ml Dialysis IV SCH (11:16)
[2018-06-22] MEDS: (Novolog) Insulin Aspart, Recombinant 100 u/ml 10 ml vial SC SCH ×5 (13:51→22:21)
--- NOTE | 2018-06-22 16:18 | CP.PCM.PN ---
Subjective - Date & Time of Evaluation Date of Evaluation: 06/22/18 Time of Evaluation: 16:17 - Subjective Subjective: pt is seen and examined, follow up consult is dictated #[id number] s/p hd today, uf 300 ml stable hd tx Objective - Vital Signs/Intake and Output Vital Signs (last 24 hours): Temp Pulse Resp BP Pulse Ox 98 F 74 18 143/57 L 98 06/22/18 12:40 06/22/18 14:20 06/22/18 09:40 06/22/18 14:20 06/22/18 12:40 Intake and Output: 06/22/18 06/22/18 06:59 18:59 Output Total 300 Balance -300 - Medications Medications: Current Medications Amlodipine Besylate (Norvasc) 10 mg PO DAILY [facility] Last Admin: 06/22/18 10:44 Dose: Not Given Aspirin (Ecotrin) 81 mg PO DAILY [facility] Last Admin: 06/22/18 10:44 Dose: Not Given Epoetin Manny (Procrit) 10,000 unit IV TTS [facility] Last Admin: 06/22/18 11:16 Dose: 10,000 unit Furosemide (Lasix) 40 mg IVP BID [facility] Last Admin: 06/22/18 10:44 Dose: Not Given Heparin Sodium (Porcine) (Heparin (For Dialysis)) 3,700 units IVP TTS [facility] Last Admin: 06/22/18 11:16 Dose: 3,700 units Hydralazine HCl (Apresoline) 100 mg PO TID [facility] Last Admin: 06/22/18 14:21 Dose: 100 mg Insulin Aspart (Novolog) 0 unit SC ACHS [facility]; Protocol Last Admin: 06/22/18 13:51 Dose: 1 u Insulin Detemir (Levemir) 24 unit SC Q24H [facility] Last Admin: 06/22/18 10:44 Dose: Not Given Losartan Potassium (Cozaar) 100 mg PO DAILY [facility] Last Admin: 06/22/18 10:43 Dose: Not Given Metoprolol Tartrate (Lopressor) 50 mg PO Q12H [facility] Last Admin: 06/22/18 10:44 Dose: Not Given Multivitamins (Hexavitamin) 1 tab PO DAILY [facility] Last Admin: 06/22/18 10:44 Dose: Not Given Pantoprazole Sodium (Protonix Ec Tab) 20 mg PO DAILY [facility] Last Admin: 06/22/18 10:45 Dose: Not Given Paricalcitol (Zemplar) 2 mcg IV TTS [facility] Last Admin: 06/22/18 11:16 Dose: 2 mcg Rosuvastatin Calcium (Crestor) 10 mg PO HS [facility] Last Admin: 06/21/18 21:45 Dose: 10 mg - Labs Labs: 06/19/18 07:49 06/19/18 07:49 PT 12.7 SECONDS (9.7-12.2) H 06/19/18 07:49 INR 1.2 06/19/18 07:49 APTT 38 SECONDS (21-34) H 06/19/18 07:49
--- NOTE | 2018-06-22 19:10 | CP.PCM.PN ---
Subjective - Date & Time of Evaluation Date of Evaluation: 06/19/18 Time of Evaluation: 08:00 - Subjective Subjective: Covering for Dr Antonino For OR for vascular access for dialysis no chest pain no sob Objective - Vital Signs/Intake and Output Vital Signs (last 24 hours): Temp Pulse Resp BP Pulse Ox 98 F 74 18 131/53 L 98 06/22/18 12:40 06/22/18 14:20 06/22/18 09:40 06/22/18 17:20 06/22/18 12:40 - Medications Medications: Current Medications Amlodipine Besylate (Norvasc) 10 mg PO DAILY [facility] Last Admin: 06/22/18 10:44 Dose: Not Given Aspirin (Ecotrin) 81 mg PO DAILY [facility] Last Admin: 06/22/18 10:44 Dose: Not Given Epoetin Manny (Procrit) 10,000 unit IV TTS [facility] Last Admin: 06/22/18 11:16 Dose: 10,000 unit Furosemide (Lasix) 40 mg IVP BID [facility] Last Admin: 06/22/18 17:20 Dose: 40 mg Heparin Sodium (Porcine) (Heparin (For Dialysis)) 3,700 units IVP TTS [facility] Last Admin: 06/22/18 11:16 Dose: 3,700 units Hydralazine HCl (Apresoline) 100 mg PO TID [facility] Last Admin: 06/22/18 17:19 Dose: 50 mg Insulin Aspart (Novolog) 0 unit SC ACHS [facility]; Protocol Last Admin: 06/22/18 17:22 Dose: 2 u Insulin Detemir (Levemir) 24 unit SC Q24H [facility] Last Admin: 06/22/18 10:44 Dose: Not Given Losartan Potassium (Cozaar) 100 mg PO DAILY [facility] Last Admin: 06/22/18 10:43 Dose: Not Given Metoprolol Tartrate (Lopressor) 50 mg PO Q12H [facility] Last Admin: 06/22/18 10:44 Dose: Not Given Multivitamins (Hexavitamin) 1 tab PO DAILY [facility] Last Admin: 06/22/18 10:44 Dose: Not Given Pantoprazole Sodium (Protonix Ec Tab) 20 mg PO DAILY [facility] Last Admin: 06/22/18 10:45 Dose: Not Given Paricalcitol (Zemplar) 2 mcg IV TTS [facility] Last Admin: 02/23/19 11:16 Dose: 2 mcg Rosuvastatin Calcium (Crestor) 10 mg PO HS [facility] Last Admin: 06/21/18 21:45 Dose: 10 mg - Labs Labs: 06/19/18 07:49 06/19/18 07:49 PT 12.7 SECONDS (9.7-12.2) H 06/19/18 07:49 INR 1.2 06/19/18 07:49 APTT 38 SECONDS (21-34) H 06/19/18 07:49 - Constitutional Appears: Non-toxic - Eye Exam Eye Exam: absent: Scleral icterus - ENT Exam ENT Exam: Mucous Membranes Moist - Neck Exam Neck Exam: Full ROM - Respiratory Exam Respiratory Exam: NORMAL BREATHING PATTERN - Cardiovascular Exam Cardiovascular Exam: REGULAR RHYTHM - GI/Abdominal Exam GI & Abdominal Exam: Soft - Extremities Exam Extremities Exam: absent: Pedal Edema Assessment and Plan - Assessment and Plan (Free Text) Assessment: ESRD T2dm Plan: Cont meds
--- NOTE | 2018-06-22 19:16 | CP.PCM.PN ---
Subjective - Date & Time of Evaluation Date of Evaluation: 06/20/18 Time of Evaluation: 09:00 - Subjective Subjective: appears comfortble lying in bed no chest pain no sob Objective - Vital Signs/Intake and Output Vital Signs (last 24 hours): Temp Pulse Resp BP Pulse Ox 98 F 74 18 131/53 L 98 06/22/18 12:40 06/22/18 14:20 06/22/18 09:40 06/22/18 17:20 06/22/18 12:40 - Medications Medications: Current Medications Amlodipine Besylate (Norvasc) 10 mg PO DAILY [facility] Last Admin: 06/22/18 10:44 Dose: Not Given Aspirin (Ecotrin) 81 mg PO DAILY [facility] Last Admin: 06/22/18 10:44 Dose: Not Given Epoetin Manny (Procrit) 10,000 unit IV TTS [facility] Last Admin: 06/22/18 11:16 Dose: 10,000 unit Furosemide (Lasix) 40 mg IVP BID [facility] Last Admin: 06/22/18 17:20 Dose: 40 mg Heparin Sodium (Porcine) (Heparin (For Dialysis)) 3,700 units IVP TTS [facility] Last Admin: 06/22/18 11:16 Dose: 3,700 units Hydralazine HCl (Apresoline) 100 mg PO TID [facility] Last Admin: 06/22/18 17:19 Dose: 50 mg Insulin Aspart (Novolog) 0 unit SC ACHS [facility]; Protocol Last Admin: 06/22/18 17:22 Dose: 2 u Insulin Detemir (Levemir) 24 unit SC Q24H [facility] Last Admin: 06/22/18 10:44 Dose: Not Given Losartan Potassium (Cozaar) 100 mg PO DAILY [facility] Last Admin: 06/22/18 10:43 Dose: Not Given Metoprolol Tartrate (Lopressor) 50 mg PO Q12H [facility] Last Admin: 06/22/18 10:44 Dose: Not Given Multivitamins (Hexavitamin) 1 tab PO DAILY [facility] Last Admin: 06/22/18 10:44 Dose: Not Given Pantoprazole Sodium (Protonix Ec Tab) 20 mg PO DAILY [facility] Last Admin: 06/22/18 10:45 Dose: Not Given Paricalcitol (Zemplar) 2 mcg IV TTS [facility] Last Admin: 06/22/18 11:16 Dose: 2 mcg Rosuvastatin Calcium (Crestor) 10 mg PO HS [facility] Last Admin: 06/21/18 21:45 Dose: 10 mg - Labs Labs: 06/19/18 07:49 06/19/18 07:49 PT 12.7 SECONDS (9.7-12.2) H 06/19/18 07:49 INR 1.2 06/19/18 07:49 APTT 38 SECONDS (21-34) H 06/19/18 07:49 - Constitutional Appears: Non-toxic - Head Exam Head Exam: ATRAUMATIC - Eye Exam Eye Exam: Scleral icterus - ENT Exam ENT Exam: Normal Exam - Respiratory Exam Respiratory Exam: NORMAL BREATHING PATTERN - Cardiovascular Exam Cardiovascular Exam: REGULAR RHYTHM - GI/Abdominal Exam GI & Abdominal Exam: Soft - Extremities Exam Extremities Exam: absent: Pedal Edema - Neurological Exam Neurological Exam: Alert, Oriented x3 Assessment and Plan - Assessment and Plan (Free Text) Assessment: ESRD HTN T2dm Plan: For TALIB Cont HD Agree with meds
--- NOTE | 2018-06-22 19:26 | CP.PCM.PN ---
Subjective - Date & Time of Evaluation Date of Evaluation: 06/21/18 Time of Evaluation: 08:15 - Subjective Subjective: no chest pain no sob NAD lying in bed comfortably Objective - Vital Signs/Intake and Output Vital Signs (last 24 hours): Temp Pulse Resp BP Pulse Ox 98 F 74 18 131/53 L 98 06/22/18 12:40 06/22/18 14:20 06/22/18 09:40 06/22/18 17:20 06/22/18 12:40 - Medications Medications: Current Medications Amlodipine Besylate (Norvasc) 10 mg PO DAILY [facility] Last Admin: 06/22/18 10:44 Dose: Not Given Aspirin (Ecotrin) 81 mg PO DAILY [facility] Last Admin: 06/22/18 10:44 Dose: Not Given Epoetin Manny (Procrit) 10,000 unit IV TTS [facility] Last Admin: 06/22/18 11:16 Dose: 10,000 unit Furosemide (Lasix) 40 mg IVP BID [facility] Last Admin: 06/22/18 17:20 Dose: 40 mg Heparin Sodium (Porcine) (Heparin (For Dialysis)) 3,700 units IVP TTS [facility] Last Admin: 06/22/18 11:16 Dose: 3,700 units Hydralazine HCl (Apresoline) 100 mg PO TID [facility] Last Admin: 06/22/18 17:19 Dose: 50 mg Insulin Aspart (Novolog) 0 unit SC ACHS [facility]; Protocol Last Admin: 06/22/18 17:22 Dose: 2 u Insulin Detemir (Levemir) 24 unit SC Q24H [facility] Last Admin: 06/22/18 10:44 Dose: Not Given Losartan Potassium (Cozaar) 100 mg PO DAILY [facility] Last Admin: 06/22/18 10:43 Dose: Not Given Metoprolol Tartrate (Lopressor) 50 mg PO Q12H [facility] Last Admin: 06/22/18 10:44 Dose: Not Given Multivitamins (Hexavitamin) 1 tab PO DAILY [facility] Last Admin: 06/22/18 10:44 Dose: Not Given Pantoprazole Sodium (Protonix Ec Tab) 20 mg PO DAILY [facility] Last Admin: 06/22/18 10:45 Dose: Not Given Paricalcitol (Zemplar) 2 mcg IV TTS [facility] Last Admin: 06/22/18 11:16 Dose: 2 mcg Rosuvastatin Calcium (Crestor) 10 mg PO HS [facility] Last Admin: 06/21/18 21:45 Dose: 10 mg - Labs Labs: 06/19/18 07:49 06/19/18 07:49 PT 12.7 SECONDS (9.7-12.2) H 06/19/18 07:49 INR 1.2 06/19/18 07:49 APTT 38 SECONDS (21-34) H 06/19/18 07:49 - Constitutional Appears: Non-toxic - Head Exam Head Exam: NORMAL INSPECTION - Eye Exam Eye Exam: absent: Scleral icterus - Neck Exam Neck Exam: Full ROM - Respiratory Exam Respiratory Exam: NORMAL BREATHING PATTERN - Cardiovascular Exam Cardiovascular Exam: REGULAR RHYTHM - GI/Abdominal Exam GI & Abdominal Exam: Soft, Normal Bowel Sounds - Extremities Exam Extremities Exam: absent: Pedal Edema Assessment and Plan - Assessment and Plan (Free Text) Assessment: ESRD CAD T2dm HTN Plan: Awaiting TALIB Family requesting facility close to daughter's house Cont meds
--- NOTE | 2018-06-23 01:10 | PN ---
DATE: 06/22/2018 FOLLOWUP RENAL CONSULTATION LOCATION: The patient is located in room 668, bed B. REQUESTED BY: Ana Noel MD REASON FOR FOLLOWUP: End-stage renal disease, continuation of hemodialysis. SUBJECTIVE: Mr. Irving is an 83-year-old elderly very pleasant [place] male with a past medical history significant for longstanding hypertension, diabetes, hyperlipidemia, chronic kidney disease stage 4 to 5, proteinuria, anemia, questionable alpha thalassemia who was admitted with the chief complaints of abdominal pain, distention and found to have small bowel obstruction, status post stent placement and low Gomco suction and symptoms improved after 24 hours. His hospital course complicated by flash pulmonary edema, NSTEMI and also gram-negative sepsis Klebsiella pneumonia, on IV antibiotics. Also, his renal function deteriorated in the hospital, requiring initiation of the renal replacement therapy. The patient is on hemodialysis three times a week, Sunday, and Sunday. The patient is feeling better. Denies any headache or dizziness. Denies any chest pain or palpitation. Denies any fever or cough. No abdominal pain. No nausea, vomiting, or diarrhea. PHYSICAL EXAMINATION: VITAL SIGNS: As follows: Blood pressure 151/75, pulse 68, respirations about 20, temperature 98, and saturation 98%. Height 5 feet 4 inches. Weight is 130 pounds. GENERAL: Mr. Irving is an 83-year-old elderly male, moderately built, moderately nourished, not in acute distress. HEENT: Pupils are normal and reactive to light and accommodation. Conjunctivae pink. Sclerae anicteric. Tongue is moist. Trachea is midline. LUNGS: Symmetric on both sides. Bilateral breath sounds present. Clear to auscultation. CARDIOVASCULAR SYSTEM: [place] at the fifth intercostal space, midclavicular line. S1 and S2 audible. No murmur or gallop. ABDOMEN: Normal in appearance. Soft, tympanitic. No guarding. No rigidity. No hepatosplenomegaly. CENTRAL NERVOUS SYSTEM: The patient is alert, awake, oriented x3. Nonfocal neuro examination. Cranial nerves II through XII grossly intact. Sensory and motor system is within normal limits. EXTREMITIES: No cyanosis, no clubbing, no edema. CURRENT MEDICATIONS: Include as follows: Hydralazine, losartan, Crestor, aspirin, heparin 3700 units three times a week in the PermCath, multivitamins, Lasix 40 mg IV b.i.d., Levemir 24 units subcu every 24 hours, metoprolol 50 mg p.o. every 12 hours, amlodipine 10 mg daily, NovoLog per sliding scale, Epogen 10,000 units three times a week, Protonix 20 mg p.o. daily, Zemplar 2 mcg three times a week of Sunday, and Sunday. LABORATORY DATA: No new labs available for today. Accu-Cheks 168 and 166. ASSESSMENT AND PLAN: In summary, Mr. Irving is an 83-year-old elderly [place]ian male with a history of longstanding hypertension, diabetes, coronary artery disease, hyperlipidemia, status post stent placement about 10 years ago with increased blood urea nitrogen and creatinine who was admitted with small bowel obstruction and also hospital course complicated by flash pulmonary edema, [id number]-[id number] myocardial infarction and also Klebsiella pneumoniae sepsis, on hemodialysis three times a week. 1. End-stage renal disease, most likely secondary to diabetic nephropathy, cannot rule out underlying hypertensive nephrosclerosis. Status post right internal jugular PermCath and left wrist arteriovenous fistula. 2. Hypertension. Continue his blood pressure medications, hydralazine, losartan, amlodipine and metoprolol. 3. Anemia secondary to renal failure and cannot rule out alpha thalassemia. 4. Diabetes. The patient is awaiting for the outpatient hemodialysis unit placement in [facility] where he is planning to move with his daughter. We will follow with correctional counselor/case manager and social service. Continue Procrit and Zemplar during dialysis three times a week. Thank you for allowing me to participate in your patient's care. Aamir Galeano MD
[2018-06-23] MEDS: (Novolog) Insulin Aspart, Recombinant 100 u/ml 10 ml vial SC SCH ×4 (07:35→21:22)
--- NOTE | 2018-06-23 09:21 | CP.PCM.PN ---
Subjective - Date & Time of Evaluation Date of Evaluation: 06/23/18 Time of Evaluation: 09:10 - Subjective Subjective: chart reviewBP better afebrile sugar improving had HD patient seen had HD yesterday, no complaints breathing okay abdomen stable awaiting for placement Objective - Vital Signs/Intake and Output Vital Signs (last 24 hours): Temp Pulse Resp BP Pulse Ox 98.7 F 68 20 127/52 L 96 06/22/18 23:35 06/22/18 23:35 06/22/18 23:35 06/22/18 23:35 06/22/18 23:35 Intake and Output: 06/23/18 06/23/18 06:59 18:59 Output Total 200 Balance -200 - Medications Medications: Current Medications Amlodipine Besylate (Norvasc) 10 mg PO DAILY [facility] Last Admin: 06/22/18 10:44 Dose: Not Given Aspirin (Ecotrin) 81 mg PO DAILY [facility] Last Admin: 06/22/18 10:44 Dose: Not Given Epoetin Manny (Procrit) 10,000 unit IV TTS [facility] Last Admin: 06/22/18 11:16 Dose: 10,000 unit Furosemide (Lasix) 40 mg IVP BID [facility] Last Admin: 06/22/18 17:20 Dose: 40 mg Heparin Sodium (Porcine) (Heparin (For Dialysis)) 3,700 units IVP TTS [facility] Last Admin: 06/22/18 11:16 Dose: 3,700 units Hydralazine HCl (Apresoline) 100 mg PO TID [facility] Last Admin: 06/22/18 17:19 Dose: 100 mg Insulin Aspart (Novolog) 0 unit SC ACHS [facility]; Protocol Last Admin: 06/23/18 07:35 Dose: Not Given Insulin Detemir (Levemir) 24 unit SC Q24H [facility] Last Admin: 06/22/18 10:44 Dose: Not Given Losartan Potassium (Cozaar) 100 mg PO DAILY [facility] Last Admin: 06/22/18 10:43 Dose: Not Given Metoprolol Tartrate (Lopressor) 50 mg PO Q12H [facility] Last Admin: 06/22/18 22:22 Dose: 50 mg Multivitamins (Hexavitamin) 1 tab PO DAILY [facility] Last Admin: 06/22/18 10:44 Dose: Not Given Pantoprazole Sodium (Protonix Ec Tab) 20 mg PO DAILY [facility] Last Admin: 06/22/18 10:45 Dose: Not Given Paricalcitol (Zemplar) 2 mcg IV TTS [facility] Last Admin: 06/22/18 11:16 Dose: 2 mcg Rosuvastatin Calcium (Crestor) 10 mg PO HS [facility] Last Admin: 06/22/18 22:23 Dose: 10 mg - Labs Labs: 06/19/18 07:49 06/19/18 07:49 PT 12.7 SECONDS (9.7-12.2) H 06/19/18 07:49 INR 1.2 06/19/18 07:49 APTT 38 SECONDS (21-34) H 06/19/18 07:49 - Constitutional Appears: Non-toxic, No Acute Distress - Head Exam Head Exam: ATRAUMATIC, NORMOCEPHALIC - Eye Exam Eye Exam: Normal appearance. absent: Nystagmus - ENT Exam ENT Exam: Mucous Membranes Moist - Neck Exam Neck Exam: Full ROM. absent: Tenderness - Respiratory Exam Respiratory Exam: Clear to Ausculation Bilateral, NORMAL BREATHING PATTERN - Cardiovascular Exam Cardiovascular Exam: REGULAR RHYTHM - GI/Abdominal Exam GI & Abdominal Exam: Soft, Normal Bowel Sounds. absent: Tenderness - Extremities Exam Extremities Exam: Full ROM. absent: Pedal Edema - Neurological Exam Neurological Exam: Alert, Awake, Normal Gait, Oriented x3 - Psychiatric Exam Psychiatric exam: Normal Affect, Normal Mood - Skin Skin Exam: Intact, Normal Color Assessment and Plan - Assessment and Plan (Free Text) Assessment: Patient with ESRD- on HD - schedule arrangement awaiting transfer to subacute currently has no complaints SBO resolved IDDM@- improving Hypertension with BP improving continue to adjust meds as needed CHF improved Anemia improving -monitoring for sub acute
[2018-06-23] MEDS: Pantoprazole 20 mg EC Tab PO SCH (10:16)
[2018-06-23] MEDS: Multiple Vitamins Tab PO SCH (10:16)
[2018-06-23] MEDS: Insulin Detemir 100 units/ml Vial (Levemir) SC SCH (10:29)
--- NOTE | 2018-06-23 15:27 | CP.PCM.PN ---
Subjective - Date & Time of Evaluation Date of Evaluation: 06/23/18 Time of Evaluation: 15:26 - Subjective Subjective: pt is seen and examined, follow up consult is dictated #[id number] check labs in am Objective - Vital Signs/Intake and Output Vital Signs (last 24 hours): Temp Pulse Resp BP Pulse Ox 98.5 F 65 20 165/67 H 94 L 06/23/18 09:23 06/23/18 09:23 06/23/18 09:23 06/23/18 10:17 06/23/18 09:23 Intake and Output: 06/23/18 06/23/18 06:59 18:59 Output Total 200 Balance -200 - Medications Medications: Current Medications Amlodipine Besylate (Norvasc) 10 mg PO DAILY [facility] Last Admin: 06/23/18 10:16 Dose: 10 mg Aspirin (Ecotrin) 81 mg PO DAILY [facility] Last Admin: 06/23/18 10:16 Dose: 81 mg Epoetin Manny (Procrit) 10,000 unit IV TTS [facility] Last Admin: 06/22/18 11:16 Dose: 10,000 unit Furosemide (Lasix) 40 mg IVP BID [facility] Last Admin: 06/23/18 10:17 Dose: 40 mg Hydralazine HCl (Apresoline) 100 mg PO TID [facility] Last Admin: 06/23/18 14:47 Dose: 100 mg Insulin Aspart (Novolog) 0 unit SC ACHS [facility]; Protocol Last Admin: 06/23/18 11:57 Dose: 2 u Insulin Detemir (Levemir) 24 unit SC Q24H [facility] Last Admin: 06/23/18 10:29 Dose: 24 units Losartan Potassium (Cozaar) 100 mg PO DAILY [facility] Last Admin: 06/23/18 10:16 Dose: 100 mg Metoprolol Tartrate (Lopressor) 50 mg PO Q12H [facility] Last Admin: 06/23/18 10:30 Dose: 50 mg Multivitamins (Hexavitamin) 1 tab PO DAILY [facility] Last Admin: 06/23/18 10:16 Dose: 1 tab Pantoprazole Sodium (Protonix Ec Tab) 20 mg PO DAILY [facility] Last Admin: 06/23/18 10:16 Dose: 20 mg Paricalcitol (Zemplar) 2 mcg IV TTS [facility] Last Admin: 06/22/18 11:16 Dose: 2 mcg Rosuvastatin Calcium (Crestor) 10 mg PO HS [facility] Last Admin: 06/22/18 22:23 Dose: 10 mg - Labs Labs: 06/19/18 07:49 06/19/18 07:49 PT 12.7 SECONDS (9.7-12.2) H 06/19/18 07:49 INR 1.2 06/19/18 07:49 APTT 38 SECONDS (21-34) H 06/19/18 07:49
--- NOTE | 2018-06-23 17:48 | CP.PCM.PN ---
Subjective - Date & Time of Evaluation Date of Evaluation: 06/23/18 Time of Evaluation: 13:30 - Subjective Subjective: Pt seen with family at bedside No chest pain No sob NAD Objective - Vital Signs/Intake and Output Vital Signs (last 24 hours): Temp Pulse Resp BP Pulse Ox 98.3 F 62 20 129/57 L 96 06/23/18 15:40 06/23/18 15:40 06/23/18 15:40 06/23/18 17:20 06/23/18 15:40 Intake and Output: 06/23/18 06/23/18 06:59 18:59 Output Total 200 Balance -200 - Medications Medications: Current Medications Amlodipine Besylate (Norvasc) 10 mg PO DAILY [facility] Last Admin: 06/23/18 10:16 Dose: 10 mg Aspirin (Ecotrin) 81 mg PO DAILY [facility] Last Admin: 06/23/18 10:16 Dose: 81 mg Epoetin Manny (Procrit) 10,000 unit IV TTS [facility] Last Admin: 06/22/18 11:16 Dose: 10,000 unit Furosemide (Lasix) 40 mg IVP BID [facility] Last Admin: 06/23/18 17:20 Dose: 40 mg Hydralazine HCl (Apresoline) 100 mg PO TID [facility] Last Admin: 06/23/18 17:20 Dose: 100 mg Insulin Aspart (Novolog) 0 unit SC [facility]; Protocol Last Admin: 06/23/18 16:45 Dose: Not Given Insulin Detemir (Levemir) 24 unit SC Q24H [facility] Last Admin: 06/23/18 10:29 Dose: 24 units Losartan Potassium (Cozaar) 100 mg PO DAILY [facility] Last Admin: 06/23/18 10:16 Dose: 100 mg Metoprolol Tartrate (Lopressor) 50 mg PO Q12H [facility] Last Admin: 06/23/18 10:30 Dose: 50 mg Multivitamins (Hexavitamin) 1 tab PO DAILY [facility] Last Admin: 06/23/18 10:16 Dose: 1 tab Pantoprazole Sodium (Protonix Ec Tab) 20 mg PO DAILY [facility] Last Admin: 06/23/18 10:16 Dose: 20 mg Paricalcitol (Zemplar) 2 mcg IV TTS [facility] Last Admin: 06/22/18 11:16 Dose: 2 mcg Rosuvastatin Calcium (Crestor) 10 mg PO HS [facility] Last Admin: 06/22/18 22:23 Dose: 10 mg - Labs Labs: 06/19/18 07:49 06/19/18 07:49 PT 12.7 SECONDS (9.7-12.2) H 06/19/18 07:49 INR 1.2 06/19/18 07:49 APTT 38 SECONDS (21-34) H 06/19/18 07:49 - Constitutional Appears: Non-toxic - Head Exam Head Exam: NORMAL INSPECTION - Eye Exam Eye Exam: absent: Scleral icterus - Neck Exam Neck Exam: Full ROM - Respiratory Exam Respiratory Exam: Clear to Ausculation Bilateral - Cardiovascular Exam Cardiovascular Exam: REGULAR RHYTHM - Extremities Exam Extremities Exam: Normal Inspection, Pedal Edema - Neurological Exam Neurological Exam: Alert, Oriented x3 Assessment and Plan - Assessment and Plan (Free Text) Assessment: ESRD CAD T2dm HTN Plan: Cont HD [facility] Ok for transfer to rehab
--- NOTE | 2018-06-24 02:19 | PN ---
DATE: 06/23/2018 FOLLOWUP RENAL CONSULTATION LOCATION: The patient is located in room 668, bed B. REQUESTED BY: Dr. Ana Noel. REASON FOR FOLLOWUP: End-stage renal disease, continuation of hemodialysis. SUBJECTIVE: Mr. 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 Subsequently, the patient was placed on low-Gomco suction. His symptoms resolved after 24 hours and was started on clear liquids and went into flash pulmonary edema and also NSTEMI requiring transfer to ICU and placed on IV Lasix and IV nitro and also BiPAP machine. His symptoms resolved and also in ICU, the patient developed Klebsiella pneumoniae, sepsis, treated with IV antibiotics and with worsening renal function, the patient required renal replacement therapy and started on hemodialysis with a temporary catheter. Subsequently, Augie catheter was changed to right intrajugular PermCath and also underwent left forearm AV fistula placement. The patient denies feeling better. Denies any headache, dizziness. Denies any chest pain or palpitation. Denies any fever or cough. No abdominal pain. No nausea, vomiting, diarrhea. PHYSICAL EXAMINATION: VITAL SIGNS: This afternoon as follows: Blood pressure 129/57, pulse 62, respirations 20, temperature 98.3, saturation 96%. Height 5 feet 4 inches, weight is 130 pounds. GENERAL: Mr. Irving is an 83-year-old elderly male, moderately built, moderately nourished, not in acute distress. HEENT: Pupils normal, react to light and accommodation. Conjunctivae pink. Sclerae anicteric. Tongue is moist and trachea is midline. LUNGS: Symmetric on both sides. Bilateral breath sounds present. Clear to auscultation. CARDIOVASCULAR SYSTEM: [place] at the fifth intercostal space, midclavicular line. S1, S2 audible. No murmur or gallop. ABDOMEN: Normal in appearance. Soft, tympanitic. No guarding, no rigidity. No hepatosplenomegaly. CENTRAL NERVOUS SYSTEM: The patient is alert, awake, oriented x3. Nonfocal neuro examination. Cranial nerves II-XII grossly intact. Sensory and motor system is within normal limits. EXTREMITIES: No cyanosis, no clubbing, no edema. CURRENT MEDICATIONS: Include as follows: Hydralazine 100 mg p.o. t.i.d., losartan 100 mg p.o. daily, Crestor 10 mg at bedtime, aspirin 81 mg daily, multivitamin 1 tablet daily, Lasix 40 mg IV b.i.d., Levemir 25 units subcu every 24 hours, metoprolol 50 mg every 12 hours, amlodipine 10 mg daily and NovoLog for sliding scale, Procrit 10,000 units three times a week, Protonix 20 mg p.o. daily and Zemplar 2 mcg three times a week. LABORATORY DATA: No new labs available and Accu-Cheks 162 and 244 and 146. ASSESSMENT AND PLAN: In summary, Mr. 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 The hospital course complicated by flash pulmonary edema, non-ST elevation myocardial infarction, and gram-negative sepsis with worsening renal function requiring initiation of the renal replacement therapy, status post right intrajugular PermCath and left forearm arteriovenous fistula. 1. End-stage renal disease. Continue hemodialysis three times a week, Sunday, , Sunday. The patient is awaiting for the outpatient hemodialysis unit placement in [facility] close to the patient's daughter's house. 2. Hypertension. Continue his current blood pressure medication, hydralazine, losartan, amlodipine and metoprolol. 3. 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 Continue Procrit and multivitamins. 4. Diabetes. Continue Levemir 24 units subcutaneous at bedtime and follow up Accu-Cheks. Continue Crestor and aspirin and Lasix and continue Zemplar 2 mcg three times a week. Continue gastrointestinal prophylaxis, Protonix 20 mg by mouth daily. We will follow up with you. Thank you for allowing me to participate in your patient's care. We will discuss with the social service in the morning regarding the outpatient hemodialysis placement. Discussed with the patient's daughter and the patient's son-in-law at bedside. We will check labs in the morning. Aamir Galeano MD [facility] # [id number]
[2018-06-24] MEDS: (Novolog) Insulin Aspart, Recombinant 100 u/ml 10 ml vial SC SCH ×4 (07:45→22:34)
[2018-06-24 08:32] LABS: HEMOGLOBIN 10.6 g/dL (12.0-18.0); MEAN CELL VOLUME 70.1 fL (80.0-94.0); MEAN CORPUSCULAR HEMOGLOBIN 22.1 pg (27.0-31.0); MEAN CORPUSCULAR HGB CONC 31.5 g/dL (33.0-37.0); MEAN PLATELET VOLUME 9.1 fL (7.2-11.7); RBC 4.82 Mil/uL (4.40-5.90); RED CELL DISTRIBUTION WIDTH 24.9 % (11.5-14.5); WHITE BLOOD COUNT 7.4 K/uL (4.8-10.8)
[2018-06-24 08:48] LABS: ALB/GLOB RATIO 1.4 (1.0-2.1); ALBUMIN 3.6 g/dL (3.5-5.0); CALCIUM 8.5 mg/dl (8.6-10.4)
[2018-06-24] MEDS: Pantoprazole 20 mg EC Tab PO SCH (10:44)
[2018-06-24] MEDS: Multiple Vitamins Tab PO SCH (10:45)
[2018-06-24] MEDS: Insulin Detemir 100 units/ml Vial (Levemir) SC SCH (10:45)
--- NOTE | 2018-06-24 19:24 | CP.PCM.PN ---
Subjective - Date & Time of Evaluation Date of Evaluation: 06/24/18 Time of Evaluation: 19:23 - Subjective Subjective: pt is seen and examined, follow up consult is dictated #[id number] for hd in am, and d/c to [facility] Objective - Vital Signs/Intake and Output Vital Signs (last 24 hours): Temp Pulse Resp BP Pulse Ox 98 F 54 L 20 137/56 L 97 06/24/18 15:51 06/24/18 15:51 06/24/18 15:51 06/24/18 15:51 06/24/18 15:51 Intake and Output: 06/24/18 06/25/18 18:59 06:59 Output Total 600 Balance -600 - Medications Medications: Current Medications Amlodipine Besylate (Norvasc) 10 mg PO DAILY [facility] Last Admin: 06/24/18 10:44 Dose: 10 mg Epoetin Manny (Procrit) 10,000 unit IV TTS [facility] Last Admin: 06/22/18 11:16 Dose: 10,000 unit Furosemide (Lasix) 40 mg IVP BID [facility] Last Admin: 06/24/18 10:45 Dose: 40 mg Hydralazine HCl (Apresoline) 100 mg PO TID [facility] Last Admin: 06/24/18 14:05 Dose: 100 mg Insulin Aspart (Novolog) 0 unit SC ACHS [facility]; Protocol Last Admin: 06/24/18 12:19 Dose: 3 u Insulin Detemir (Levemir) 24 unit SC Q24H [facility] Last Admin: 06/24/18 10:45 Dose: 24 units Losartan Potassium (Cozaar) 100 mg PO DAILY [facility] Last Admin: 06/24/18 10:43 Dose: 100 mg Metoprolol Tartrate (Lopressor) 50 mg PO Q12H [facility] Last Admin: 06/24/18 10:43 Dose: 50 mg Multivitamins (Hexavitamin) 1 tab PO DAILY [facility] Last Admin: 06/24/18 10:45 Dose: 1 tab Pantoprazole Sodium (Protonix Ec Tab) 20 mg PO DAILY [facility] Last Admin: 06/24/18 10:44 Dose: 20 mg Paricalcitol (Zemplar) 2 mcg IV TTS [facility] Last Admin: 06/22/18 11:16 Dose: 2 mcg Rosuvastatin Calcium (Crestor) 10 mg PO HS [facility] Last Admin: 06/23/18 21:22 Dose: 10 mg - Labs Labs: 06/24/18 08:27 06/24/18 08:27 PT 12.7 SECONDS (9.7-12.2) H 06/19/18 07:49 INR 1.2 06/19/18 07:49 APTT 38 SECONDS (21-34) H 06/19/18 07:49
--- NOTE | 2018-06-24 19:40 | CP.PCM.PN ---
Subjective - Date & Time of Evaluation Date of Evaluation: 06/24/18 Time of Evaluation: 08:30 - Subjective Subjective: chart review vitals stab;e afebrile patient seen not aware of HD schedule social science instructor discussion regarding transfer [place] daughter [place] daughter will take her in [place] social science instructor aware patient has no complaints patient has slot in [facility] in [place], but they prefer in [place] as above reasons Discussion with Diaz - to discuss with family Objective - Vital Signs/Intake and Output Vital Signs (last 24 hours): Temp Pulse Resp BP Pulse Ox 98 F 54 L 20 137/56 L 97 06/24/18 15:51 06/24/18 15:51 06/24/18 15:51 06/24/18 15:51 06/24/18 15:51 Intake and Output: 06/24/18 06/25/18 18:59 06:59 Output Total 600 Balance -600 - Medications Medications: Current Medications Amlodipine Besylate (Norvasc) 10 mg PO DAILY [facility] Last Admin: 06/24/18 10:44 Dose: 10 mg Epoetin Manny (Procrit) 10,000 unit IV TTS [facility] Last Admin: 06/22/18 11:16 Dose: 10,000 unit Furosemide (Lasix) 40 mg IVP BID [facility] Last Admin: 06/24/18 10:45 Dose: 40 mg Hydralazine HCl (Apresoline) 100 mg PO TID [facility] Last Admin: 06/24/18 14:05 Dose: 100 mg Insulin Aspart (Novolog) 0 unit SC ACHS [facility]; Protocol Last Admin: 06/24/18 12:19 Dose: 3 u Insulin Detemir (Levemir) 24 unit SC Q24H [facility] Last Admin: 06/24/18 10:45 Dose: 24 units Losartan Potassium (Cozaar) 100 mg PO DAILY [facility] Last Admin: 06/24/18 10:43 Dose: 100 mg Metoprolol Tartrate (Lopressor) 50 mg PO Q12H [facility] Last Admin: 06/24/18 10:43 Dose: 50 mg Multivitamins (Hexavitamin) 1 tab PO DAILY [facility] Last Admin: 06/24/18 10:45 Dose: 1 tab Pantoprazole Sodium (Protonix Ec Tab) 20 mg PO DAILY [facility] Last Admin: 06/24/18 10:44 Dose: 20 mg Paricalcitol (Zemplar) 2 mcg IV TTS [facility] Last Admin: 06/22/18 11:16 Dose: 2 mcg Rosuvastatin Calcium (Crestor) 10 mg PO HS [facility] Last Admin: 06/23/18 21:22 Dose: 10 mg - Labs Labs: 06/24/18 08:27 06/24/18 08:27 PT 12.7 SECONDS (9.7-12.2) H 06/19/18 07:49 INR 1.2 06/19/18 07:49 APTT 38 SECONDS (21-34) H 06/19/18 07:49 - Constitutional Appears: No Acute Distress - Head Exam Head Exam: ATRAUMATIC, NORMOCEPHALIC - Eye Exam Eye Exam: Normal appearance. absent: Nystagmus - ENT Exam ENT Exam: Mucous Membranes Moist - Neck Exam Neck Exam: Full ROM. absent: Tenderness - Respiratory Exam Respiratory Exam: Clear to Ausculation Bilateral, NORMAL BREATHING PATTERN - GI/Abdominal Exam GI & Abdominal Exam: Soft, Normal Bowel Sounds. absent: Distended, Tenderness - Extremities Exam Extremities Exam: Full ROM, Normal Inspection. absent: Joint Swelling, Pedal Edema, Tenderness - Back Exam Back Exam: Full ROM - Neurological Exam Neurological Exam: Alert, Awake, Normal Gait, Oriented x3 - Psychiatric Exam Psychiatric exam: Normal Affect, Normal Mood - Skin Skin Exam: Intact, Normal Color Assessment and Plan - Assessment and Plan (Free Text) Assessment: patient with ESRD on HD, FOR TRANSFER TO SUB ACUTE PATIENT HAS A SLOT IN LOCAL SUBACUTE AND HD PATIENT WILL HAVE DIALYSIS TOMORROW- AND WILL BE DISCHARGED ACCORDINGLY DISCUSSED WITH DAUGHTER DISCUSSSED WITH RENAL DR BENZ- PATIENT WILLL HAVE HD IN AM THEN CAN BE DISCHARGE HYPERTENSION- STABLE CHF CAD STABLE IDDM2 CONTROLLED CONTINUE CURRENT CARE AND MEDICATIONS WILL DISCUSS WITH PATIENT IN AM
--- NOTE | 2018-06-25 03:10 | PN ---
DATE: 06/24/2018 FOLLOWUP RENAL CONSULTATION LOCATION: The patient is located in room 668, bed B. REQUESTED BY: Ana Noel MD REASON FOR FOLLOWUP: End-stage renal disease, continuation of hemodialysis. SUBJECTIVE: Mr. Irving is an 83-year-old elderly, very pleasant [place] male with a history of longstanding hypertension, diabetes, coronary artery disease status post stent placement, hyperlipidemia, anemia, chronic kidney disease, proteinuria, who was admitted initially with abdominal distention and pain, found to have high-grade small-bowel obstruction, status post low Gomco suction and symptoms relieved after 24 hours. The patient was placed on liquid diet and subsequently his hospital course complicated by flash pulmonary edema requiring transfer to ICU and placed on IV Lasix, IV nitroglycerin, and BiPAP. Also, the patient developed gram-negative sepsis in ICU with worsening renal function requiring initiation of the renal replacement therapy. The patient is feeling better, not in acute distress. Denies any headache, dizziness. Denies any chest pain or palpitation. Denies any fever or cough. No abdominal pain. No nausea, vomiting, diarrhea. PHYSICAL EXAMINATION: VITAL SIGNS: As follows: Blood pressure 137/56, pulse 54, respirations 20, temperature 98, saturation 97%. Height 5 feet 4 inches and weight is 130 pounds. GENERAL: Mr. Irving is an 83-year-old elderly male, moderately built, moderately nourished, not in acute distress. HEENT: Pupils normal, reactive to light and accommodation. Conjunctivae pink. Sclerae anicteric. Tongue is moist and trachea is midline. LUNGS: Symmetric on both sides. Bilateral breath sounds present. Clear to auscultation. CARDIOVASCULAR SYSTEM: [place] at the fifth intercostal space, midclavicular line. S1 and S2 audible. No murmur or gallop. ABDOMEN: Normal in appearance, soft, tympanitic. No guarding. No rigidity. No hepatosplenomegaly. CENTRAL NERVOUS SYSTEM: The patient is alert, awake, oriented x3. Nonfocal neuro examination. Cranial nerves II-XII grossly intact. Sensory and motor systems within normal limits. EXTREMITIES: No cyanosis, no clubbing, no edema. CURRENT MEDICATIONS: Include as follows: Hydralazine 100 mg p.o. t.i.d., losartan 100 mg p.o. daily, Crestor 10 mg daily, multivitamin one tablet daily, Lasix 40 mg p.o. IV b.i.d., Levemir 24 units subcu at bedtime, Lopressor 50 mg p.o. every 12 hours, amlodipine 10 mg daily, NovoLog for sliding scale, Procrit 10,000 units three times a week, Protonix 20 mg p.o. daily, Zemplar 2 mcg three times a week. LABORATORY DATA: Include as follows: As of 06/24/2018, WBC 7.4, hemoglobin 10.6, hematocrit 33.8, MCV 70.1, platelets 242. Sodium 132, potassium 3.4, chloride 92, CO2 29, BUN 38, creatinine 4.4, glucose 136, calcium 8.5, phosphorus 5.1, magnesium 1.9. Total bili 0.6, AST 28, ALT 21, alkaline phosphatase 93, total protein 6.3, albumin 3.6. ASSESSMENT AND PLAN: In summary, Mr. Irving is an 83-year-old elderly [place] male with a history of hypertension, diabetes, coronary artery disease status post stent placement, hyperlipidemia, anemia, chronic kidney disease, proteinuria, was admitted initially with small bowel obstruction and with worsening renal function, creatinine about 5. His hospital course was complicated by flash pulmonary edema, non-ST elevation myocardial infarction, also gram-negative sepsis and worsening renal function requiring initiation of renal replacement, status post right intrajugular PermCath and status post left forearm arteriovenous fistula. 1. End-stage renal disease. Continue hemodialysis three times a week on Sunday, , Sunday. 2. Hypertension. Blood pressure is stable. Continue hydralazine, losartan, amlodipine, and metoprolol. 3. 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 Continue Procrit during dialysis. 4. Secondary hyperparathyroidism. Continue Zemplar three times a week on Sunday, , Sunday. 5. Type 2 diabetes. Continue Levemir and NovoLog for sliding scale. Case discussed with the spring encaser and also discussed with Dr. Noel. The patient is willing to go to subacute rehab. The patient can be discharged from the renal standpoint after hemodialysis tomorrow. Thank you for allowing me to participate in your patient's care. Aamir Galeano MD [facility] # [id number]
[2018-06-25] MEDS: (Novolog) Insulin Aspart, Recombinant 100 u/ml 10 ml vial SC SCH ×2 (07:17→11:51)
[2018-06-25] MEDS: Insulin Detemir 100 units/ml Vial (Levemir) SC SCH (08:13)
--- NOTE | 2018-06-25 10:12 | CP.PCM.PN ---
Subjective - Date & Time of Evaluation Date of Evaluation: 06/25/18 Time of Evaluation: 09:00 - Subjective Subjective: chart review afebrile vitals stable patient seen going for dialysis no other complaints daughter in [place] discussed transfer or discharge- daughter in charge called and discussed PA in charge-to clarify discharge sub acute or home Objective - Vital Signs/Intake and Output Vital Signs (last 24 hours): Temp Pulse Resp BP Pulse Ox 98.4 F 78 20 164/75 H 97 06/25/18 08:39 06/25/18 08:39 06/25/18 08:39 06/25/18 08:39 06/25/18 08:39 Intake and Output: 06/25/18 06/25/18 06:59 18:59 Intake Total 250 Output Total 700 Balance -450 - Medications Medications: Current Medications Amlodipine Besylate (Norvasc) 10 mg PO DAILY [facility] Last Admin: 06/24/18 10:44 Dose: 10 mg Epoetin Manny (Procrit) 10,000 unit IV TTS [facility] Last Admin: 06/22/18 11:16 Dose: 10,000 unit Furosemide (Lasix) 40 mg IVP BID [facility] Last Admin: 06/24/18 19:00 Dose: 40 mg Hydralazine HCl (Apresoline) 100 mg PO TID [facility] Last Admin: 06/24/18 19:00 Dose: 100 mg Insulin Aspart (Novolog) 0 unit SC ACHS [facility]; Protocol Last Admin: 06/25/18 07:17 Dose: Not Given Insulin Detemir (Levemir) 24 unit SC Q24H [facility] Last Admin: 06/25/18 08:13 Dose: 23 units Losartan Potassium (Cozaar) 100 mg PO DAILY [facility] Last Admin: 06/24/18 10:43 Dose: 100 mg Metoprolol Tartrate (Lopressor) 50 mg PO Q12H [facility] Last Admin: 06/24/18 22:34 Dose: 50 mg Multivitamins (Hexavitamin) 1 tab PO DAILY [facility] Last Admin: 06/24/18 10:45 Dose: 1 tab Pantoprazole Sodium (Protonix Ec Tab) 20 mg PO DAILY [facility] Last Admin: 06/24/18 10:44 Dose: 20 mg Paricalcitol (Zemplar) 2 mcg IV TTS [facility] Last Admin: 06/22/18 11:16 Dose: 2 mcg Rosuvastatin Calcium (Crestor) 10 mg PO HS [facility] Last Admin: 06/24/18 22:34 Dose: 10 mg - Labs Labs: 06/24/18 08:27 06/24/18 08:27 PT 12.7 SECONDS (9.7-12.2) H 06/19/18 07:49 INR 1.2 06/19/18 07:49 APTT 38 SECONDS (21-34) H 06/19/18 07:49 - Constitutional Appears: Non-toxic, No Acute Distress - Head Exam Head Exam: ATRAUMATIC, NORMOCEPHALIC - Eye Exam Eye Exam: Normal appearance - ENT Exam ENT Exam: Mucous Membranes Moist - Neck Exam Neck Exam: Full ROM. absent: Tenderness - Respiratory Exam Respiratory Exam: Clear to Ausculation Bilateral - Cardiovascular Exam Cardiovascular Exam: REGULAR RHYTHM - GI/Abdominal Exam GI & Abdominal Exam: Soft, Normal Bowel Sounds. absent: Distended, Tenderness - Extremities Exam Extremities Exam: Full ROM. absent: Joint Swelling, Pedal Edema - Neurological Exam Neurological Exam: Alert, Awake, Normal Gait, Oriented x3 - Psychiatric Exam Psychiatric exam: Normal Affect, Normal Mood - Skin Skin Exam: Intact, Normal Color Assessment and Plan - Assessment and Plan (Free Text) Assessment: Patient with multiple medical problems, now on HD- has slot discharge discussion clarifying place home versus sub acute Hypertension is controlled IDDM2- controlled- daughter was educated yesterday CAD stable Anemia stable A fib CHF controlled
[2018-06-25 10:23] VITALS: O2SAT 98
[2018-06-25] MEDS: Epoetin Alfa 10,000 unit/ml Dialysis IV SCH (10:36)
[2018-06-25] MEDS: Paricalcitol 2 mcg/ml Inj IV SCH (10:37)
[2018-06-25] MEDS: Pantoprazole 20 mg EC Tab PO SCH (10:40)
[2018-06-25] MEDS: Multiple Vitamins Tab PO SCH (10:40)
--- NOTE | 2018-06-25 11:13 | CP.PCM.PN ---
Subjective - Date & Time of Evaluation Date of Evaluation: 06/25/18 Time of Evaluation: 11:12 - Subjective Subjective: pt is seen and examined during hd, uf goal is 1 lit, follow up consult is dictated #[id number] Objective - Vital Signs/Intake and Output Vital Signs (last 24 hours): Temp Pulse Resp BP Pulse Ox 97.5 F L 59 L 18 164/68 H 98 06/25/18 09:45 06/25/18 09:45 06/25/18 09:45 06/25/18 10:30 06/25/18 09:45 Intake and Output: 06/25/18 06/25/18 06:59 18:59 Intake Total 250 Output Total 700 Balance -450 - Medications Medications: Current Medications Amlodipine Besylate (Norvasc) 10 mg PO DAILY [facility] Last Admin: 06/25/18 10:40 Dose: Not Given Epoetin Manny (Procrit) 10,000 unit IV TTS [facility] Last Admin: 06/25/18 10:36 Dose: 10,000 unit Furosemide (Lasix) 40 mg IVP BID [facility] Last Admin: 06/25/18 10:40 Dose: Not Given Hydralazine HCl (Apresoline) 100 mg PO TID [facility] Last Admin: 06/25/18 10:40 Dose: Not Given Insulin Aspart (Novolog) 0 unit SC [facility]; Protocol Last Admin: 06/25/18 07:17 Dose: Not Given Insulin Detemir (Levemir) 24 unit SC Q24H [facility] Last Admin: 06/25/18 08:13 Dose: 23 units Losartan Potassium (Cozaar) 100 mg PO DAILY [facility] Last Admin: 06/25/18 10:40 Dose: Not Given Metoprolol Tartrate (Lopressor) 50 mg PO Q12H [facility] Last Admin: 06/25/18 10:40 Dose: Not Given Multivitamins (Hexavitamin) 1 tab PO DAILY [facility] Last Admin: 06/25/18 10:40 Dose: Not Given Pantoprazole Sodium (Protonix Ec Tab) 20 mg PO DAILY [facility] Last Admin: 06/25/18 10:40 Dose: Not Given Paricalcitol (Zemplar) 2 mcg IV TTS [facility] Last Admin: 06/25/18 10:37 Dose: 2 mcg Rosuvastatin Calcium (Crestor) 10 mg PO HS [facility] Last Admin: 06/24/18 22:34 Dose: 10 mg - Labs Labs: 06/24/18 08:27 06/24/18 08:27 PT 12.7 SECONDS (9.7-12.2) H 06/19/18 07:49 INR 1.2 06/19/18 07:49 APTT 38 SECONDS (21-34) H 06/19/18 07:49
[2018-06-25 15:50] VITALS: BP 170/61; PULSE 79; RESP 20; TEMP 98.6
--- NOTE | 2018-06-26 01:25 | PN ---
DATE: 06/25/2018 FOLLOWUP RENAL CONSULTATION LOCATION: The patient is located in room 668, bed B. REQUESTED BY: Ana Noel MD REASON FOR FOLLOWUP: End-stage renal disease, continuation of hemodialysis. SUBJECTIVE: Mr. Irving is an 83-year-old elderly [place] male with history of longstanding hypertension, diabetes, hyperlipidemia, coronary artery disease, status post stent placement, nephrotic-range proteinuria, anemia, CKD V, was admitted with small bowel obstruction, abdominal pain and distention, status post low-Gomco suction placement and his symptoms improved after 24 hours and started on clear liquids. His hospital course is complicated by flash pulmonary edema, NSTEMI, and also gram-negative sepsis secondary to Klebsiella pneumoniae, on IV antibiotics and also worsening renal function, requiring initiation of the renal replacement therapy, on hemodialysis three times a week, Sunday, , Sunday. Now, the patient was accepted to [facility] in [facility] where he is planning to move temporarily to his daughter's house until his comes back from the [facility]. The patient is not in acute distress. Denies any headache, dizziness. Denies any chest pain or palpitation. Denies any fever or cough. No abdominal pain. No nausea, vomiting, diarrhea. The patient was seen and examined during dialysis. UF goal is about 1 liter. PHYSICAL EXAMINATION: VITAL SIGNS: As follows: Blood pressure 163/76, pulse about 58, respirations 16 and temperature 97, saturation 98%. Height 5 feet 4 inches, weight is 130 pounds. GENERAL: Mr. Irving is an 83 years old elderly male, moderately built, moderately nourished, not in acute distress. HEENT: Pupils normal, react to light and accommodation. Conjunctivae pink. Sclerae anicteric. Tongue is moist. Trachea is midline. LUNGS: Symmetric on both sides. Bilateral breath sounds present. Clear to auscultation. CARDIOVASCULAR SYSTEM: [place] at the fifth intercostal space, midclavicular line. S1, S2 audible. No murmur or gallop. ABDOMEN: Normal in appearance. Soft, tympanitic. No guarding, no rigidity. No hepatosplenomegaly. CENTRAL NERVOUS SYSTEM: The patient is alert, awake and oriented x3. Nonfocal neuro examination. Cranial nerves II through XII grossly intact. Sensory and motor system is within normal limits. EXTREMITIES: No cyanosis, no clubbing, no edema. CURRENT MEDICATIONS: Include as follows: Lipitor 20 mg p.o. at bedtime, omeprazole 20 mg p.o. daily, multivitamin 1 tablet daily and vitamin D 1000 units p.o. daily, hydralazine 100 mg p.o. t.i.d., amlodipine 10 mg p.o. daily, Protonix 20 mg p.o. daily, metoprolol 50 mg every 12 hours, Levemir 24 units subcu every 24 hours, Procrit 10,000 units IV three times a week. LABORATORY DATA: Includes as follows: As of 06/23/2018, WBC 7.4, hemoglobin 10.6, hematocrit 33.8, platelets 242. Sodium 132, potassium 3.4, chloride 92, CO2 of 29, BUN 38, creatinine 4.4, glucose 136, calcium 8.5, phosphorus 5.1, magnesium 1.9. Total bili 0.6, AST 38, ALT 21, alkaline phosphatase 93, total protein 6.3, albumin is 3.6. ASSESSMENT AND PLAN: In summary, Mr. Irving is an 83 years old elderly [place] male with history of longstanding hypertension, diabetes, coronary artery disease, hyperlipidemia, chronic kidney disease stage V, proteinuria, anemia, was admitted with small bowel obstruction, status post flash pulmonary edema, non-ST elevation myocardial infarction, and Klebsiella pneumoniae sepsis, anemia with worsening renal function, requiring initiation of renal replacement therapy, on hemodialysis three times a week, status post right intrajugular PermCath and also on the left wrist arteriovenous fistula. 1. End-stage renal disease. Continue hemodialysis three times a week, Sunday, , Sunday. The patient is accepted to outpatient hemodialysis unit in [facility] where is planning to move to his daughter's house temporarily. 2. Hypertension. Blood pressure is stable. Continue his current medications, amlodipine, hydralazine, losartan and metoprolol. 3. Diabetes. Continue Levemir as per Dr. Noel. 4. Anemia. Hemoglobin and hematocrit improving nicely. Continue Procrit during dialysis three times a week. The patient is stable from the renal standpoint for discharge to outpatient hemodialysis unit and close to the patient's daughter's house, [facility]. The patient was advised to follow up with the top stop attacher as recommended by his primary care physician. Thank you for allowing me to participate in your patient's care. The patient was seen and examined during dialysis and ultrafiltration about 1 liter. Aamir Galeano MD
--- NOTE | 2018-06-27 14:52 | CP.PCM.DIS ---
Provider - Provider Date of Admission: 06/06/18 05:42 Attending physician: Aan Noel MD Consults: 06/06/18 05:43 General Surgery Consult Stat Comment: sbo Consulting Provider: Luis M Seymour Consulting Physician: Luis M Seymour Reason for Consult: sbo 06/06/18 06:26 Cardiology Consult Routine Comment: Consulting Provider: Rogerio Muñiz Consulting Physician: Rogerio Muñiz Reason for Consult: 1st AV block 06/06/18 06:27 Nephrology Consult Routine Comment: Consulting Provider: Aamir Galeano Consulting Physician: Aamir Galeano Reason for Consult: renal insufficiency 06/10/18 18:02 Physician Consult Routine Comment: Consulting Provider: Hector Alicia Consulting Physician: Hector Alicia Reason for Consult: respiratory distress 06/11/18 12:38 Vascular Surgery Routine Comment: Consulting Provider: Tate Evans Jr. Physician Instructions: Reason For Exam: dialysis needed, permacath, avf 06/15/18 15:48 Discharge Planning [Case Management Referral] Routine Comment: Physician Instructions: Reason For Exam: for subacute Reason for Referral: Migratory Worker Eval 06/19/18 06:43 Cardiology Consult Routine Comment: Please notify Dr. Jarvis Consulting Provider: Zaid Jarvis Consulting Physician: Zaid Jarvis Reason for Consult: Cardiology coverage. I am out of town till June 28 Time Spent in preparation of Discharge (in minutes): 30 Hospital Course - Lab Results Lab Results: Micro Results 06/12/18 00:37 Blood-Venous Blood Culture - Final NO GROWTH AFTER 5 DAYS 06/12/18 00:37 Blood-Venous Blood Culture - Final NO GROWTH AFTER 5 DAYS 06/12/18 00:37 Blood-Venous Gram Stain - Final TEST NOT PERFORMED 06/14/18 16:10 Naris MRSA Culture - Final MRSA NOT DETECTED 06/07/18 21:49 Blood-Venous Blood Culture - Final NO GROWTH AFTER 5 DAYS 06/07/18 21:49 Blood-Venous Gram Stain - Final TEST NOT PERFORMED 06/07/18 21:49 Blood-Venous Blood Culture - Final NO GROWTH AFTER 5 DAYS 06/07/18 21:49 Blood-Venous Gram Stain - Final TEST NOT PERFORMED 06/10/18 10:36 Blood Blood Culture - Final Klebsiella Pneumoniae Ssp Pneu 06/10/18 10:36 Blood Gram Stain - Final 06/09/18 13:20 Nose MRSA Culture (Admit) - Final MRSA NOT DETECTED 06/09/18 15:14 Urine,Ramsay Urine Culture - Final No Growth (<1,000 CFU/ML) 06/07/18 23:15 Urine Random Urine Culture - Final No Growth (<1,000 CFU/ML) Most Recent Lab Values WBC 7.4 K/uL (4.8-10.8) 06/24/18 08:27 RBC 4.82 Mil/uL (4.40-5.90) 06/24/18 08:27 Hgb 10.6 g/dL (12.0-18.0) L 06/24/18 08:27 Hct 33.8 % (35.0-51.0) L 06/24/18 08:27 MCV 70.1 fL (80.0-94.0) L 06/24/18 08:27 MCH 22.1 pg (27.0-31.0) L 06/24/18 08:27 MCHC 31.5 g/dL (33.0-37.0) L 06/24/18 08:27 RDW 24.9 % (11.5-14.5) H 06/24/18 08:27 Plt Count 242 K/uL (130-400) 06/24/18 08:27 MPV 9.1 fL (7.2-11.7) 06/24/18 08:27 Neut % (Auto) 62.4 % (50.0-75.0) 06/19/18 07:49 Lymph % (Auto) 20.0 % (20.0-40.0) 06/19/18 07:49 [place] % (Auto) 11.8 % (0.0-10.0) H 06/19/18 07:49 Eos % (Auto) 4.1 % (0.0-4.0) H 06/19/18 07:49 Baso % (Auto) 1.7 % (0.0-2.0) 06/19/18 07:49 Neut # (Auto) 5.3 K/uL (1.8-7.0) 06/19/18 07:49 Lymph # (Auto) 1.7 K/uL (1.0-4.3) 06/19/18 07:49 [place] # (Auto) 1.0 K/uL (0.0-0.8) H 06/19/18 07:49 Eos # (Auto) 0.3 K/uL (0.0-0.7) 06/19/18 07:49 Baso # (Auto) 0.1 K/uL (0.0-0.2) 06/19/18 07:49 Neutrophils % (Manual) 85 % (50-75) H 06/11/18 10:48 Band Neutrophils % 2 % (0-2) 06/11/18 10:48 Lymphocytes % (Manual) 7 % (20-40) L 06/11/18 10:48 Reactive Lymphs % 1 % (0-0) H 06/10/18 06:11 Monocytes % (Manual) 5 % (0-10) 06/11/18 10:48 Eosinophils % (Manual) 1 % (0-4) 06/11/18 10:48 Differential Comment 06/09/18 08:00 Platelet Estimate Decreased (NORMAL) L 06/11/18 10:48 Hypochromasia (manual) Moderate 06/11/18 10:48 Poikilocytosis (manual Slight 06/07/18 08:11 Anisocytosis (manual) Slight 06/11/18 10:48 Microcytosis (manual) Moderate 06/11/18 10:48 Ovalocytes Moderate 06/11/18 10:48 PT 12.7 SECONDS (9.7-12.2) H 06/19/18 07:49 INR 1.2 06/19/18 07:49 APTT 38 SECONDS (21-34) H 06/19/18 07:49 pO2 29 mm/Hg (30-55) L 06/06/18 03:44 VBG pH 7.36 (7.32-7.43) 06/06/18 03:44 VBG pCO2 38 mmHg (40-60) L 06/06/18 03:44 VBG HCO3 20.9 mmol/L 06/06/18 03:44 VBG Total CO2 22.7 mmol/L (22-28) 06/06/18 03:44 VBG O2 Sat (Calc) 60.7 % (40-65) 06/06/18 03:44 VBG Base Excess -3.6 mmol/L (0.0-2.0) L 06/06/18 03:44 VBG Potassium 4.4 mmol/L (3.6-5.2) 06/06/18 03:44 Sodium 132.0 mmol/l (132-148) 06/06/18 03:44 Chloride 101.0 mmol/L (98-107) 06/06/18 03:44 Glucose 144 mg/dl (75-110) H 06/06/18 03:44 Lactate 0.9 mmol/L (0.7-2.1) 06/06/18 03:44 Sodium 132 mmol/L (132-148) 06/24/18 08:27 Potassium 3.4 mmol/L (3.6-5.2) L 06/24/18 08:27 Chloride 92 mmol/L (98-107) L 06/24/18 08:27 Carbon Dioxide 29 mmol/L (22-30) 06/24/18 08:27 Anion Gap 14 (10-20) 06/24/18 08:27 BUN 38 mg/dL (9-20) H 06/24/18 08:27 Creatinine 4.4 mg/dL (0.8-1.5) H 06/24/18 08:27 Est GFR ( Amer) 16 06/24/18 08:27 Est GFR (Non-Af Amer) 13 06/24/18 08:27 POC Glucose (mg/dL) 218 mg/dL (65-110) H 06/25/18 16:13 Random Glucose 136 mg/dL (75-110) H D 06/24/18 08:27 Calcium 8.5 mg/dl (8.6-10.4) L 06/24/18 08:27 Phosphorus 5.1 mg/dL (2.5-4.5) H 06/24/18 08:27 Magnesium 1.9 mg/dL (1.6-2.3) 06/24/18 08:27 Iron 119 ug/dL (49-181) 06/08/18 11:00 TIBC 214 ug/dL (250-450) L 06/08/18 11:00 % Saturation 55.6 (20-55) H 06/08/18 11:00 Ferritin 676.0 ng/mL 06/08/18 11:00 Total Bilirubin 0.6 mg/dL (0.2-1.3) 06/24/18 08:27 AST 28 U/L (17-59) 06/24/18 08:27 ALT 21 U/L (21-72) D 06/24/18 08:27 Alkaline Phosphatase 93 U/L (38-126) 06/24/18 08:27 Total Creatine Kinase 137 U/L (55-170) 06/09/18 16:25 CK-MB (Mass) 2.12 ng/mL (0.0-3.38) 06/09/18 16: Troponin I 1.3600 ng/mL (0.00-0.120) H* 06/10/18 06:09 Total Protein 6.3 g/dL (6.3-8.3) 06/24/18 08:27 Total Protein (PEP) 5.6 g/dL (6.1-8.1) L 06/08/18 11:00 Albumin 3.6 g/dL (3.5-5.0) 06/24/18 08:27 Albumin (PEP) 3.1 g/dL (3.8-4.8) L 06/08/18 11:00 Globulin 2.7 gm/dL (2.2-3.9) 06/24/18 08:27 Albumin/Globulin Ratio 1.4 (1.0-2.1) 06/24/18 08:27 Zkpao-4-Iszacxusp 0.4 g/dL (0.2-0.3) H 06/08/18 11:00 Lqiap-4-Vudnkugah 0.8 g/dL (0.5-0.9) 06/08/18 11:00 Beta Globulins 11.2 % 06/08/18 09:10 Omvd-8-Juldopxb 0.3 g/dL (0.4-0.6) L 06/08/18 11:00 Edug-5-Obddtwfl 0.3 g/dL (0.2-0.5) 06/08/18 11:00 Gamma Globulins 0.8 g/dL (0.8-1.7) 06/08/18 11:00 Abnorm Protein Band 1 TEST NOT PERFORMED 06/08/18 11:00 Abnorm Protein Band 2 TEST NOT PERFORMED 06/08/18 11:00 Abnorm Protein Band 3 TEST NOT PERFORMED 06/08/18 11:00 Lipase 157 U/L (23-300) 06/06/18 03:46 PTH Intact Whole Molec 135 pg/mL (14-64) H 06/08/18 11:00 Venous Blood Potassium 4.4 mmol/L (3.6-5.2) 06/06/18 03:44 Urine Color Straw (YELLOW) 06/09/18 15:14 Urine Clarity Clear (Clear) 06/09/18 15:14 Urine pH 5.0 (5.0-8.0) 06/09/18 15:14 Ur Specific [place] 1.006 (1.003-1.030) 06/09/18 15:14 Urine Protein 2+ mg/dL (NEGATIVE) H 06/09/18 15:14 Urine Glucose (UA) Normal mg/dL (Normal) 06/09/18 15:14 Urine Ketones Negative mg/dL (NEGATIVE) 06/09/18 15:14 Urine Blood 1+ (NEGATIVE) H 06/09/18 15:14 Urine Nitrate Negative (NEGATIVE) 06/09/18 15:14 Urine Bilirubin Negative (NEGATIVE) 06/09/18 15:14 Urine Urobilinogen Normal mg/dL (0.2-1.0) 06/09/18 15:14 Ur Leukocyte Esterase Neg Fredy/uL (Negative) 06/09/18 15:14 Urine WBC (Auto) 2 /hpf (0-5) 06/09/18 15:14 Urine RBC (Auto) 4 /hpf (0-3) H 06/09/18 15:14 Ur Squamous Epith Cells < 1 /hpf (0-5) 06/07/18 23:15 Urine Bacteria Rare (<OCC) 06/09/18 15:14 Hyaline Casts 0-2 /lpf (0-2) 06/09/18 15:14 Ur Random Creatinine 38 mg/dL (20-320) 06/08/18 09:10 U Random Total Protein 2263 mg/g creat (22-128) H 06/08/18 09:10 Urine Albumin (PEP) 64.5 % 06/08/18 09:10 Ur Protein Fractions See note 06/08/18 09:10 B-Hydroxybutyrate 0.60 mM (0.02-0.27) H 06/06/18 03:46 CAROLINE & SPEP Interp See note 06/08/18 11:00 DARY Screen Negative (Negative) 06/08/18 11:00 Complement C3 84.0 mg/dL (88.0-165.0) L 06/08/18 11:00 Complement C4 9.5 mg/dL (14.0-44.0) L 06/08/18 11:00 Hepatitis A IgM Ab Negative (NEGATIVE) 06/08/18 11:00 Hep Bs Antigen Negative (NEGATIVE) 06/08/18 11:00 Hep B Core IgM Ab Negative (NEGATIVE) 06/08/18 11:00 Hepatitis C Antibody Negative (NEGATIVE) 06/08/18 11:00 Blood Type A POSITIVE 06/12/18 05:49 Antibody Screen Negative 06/12/18 05:49 - Hospital Course Hospital Course: patient was admitted initially for small bowel obstruction symptoms-but improved with no surgical interventions, then had episod episode of respiratory distress and noted that his chronic renal insufficiency deteriorated and had to be dialyzed. patient had AV fistula inserted, and had hemodialysis while waiting for his slot - Date & Time of H&P Date of H&P: 06/25/18 Discharge Exam - Head Exam Head Exam: ATRAUMATIC, NORMOCEPHALIC - Eye Exam Eye Exam: absent: Nystagmus - ENT Exam ENT Exam: Mucous Membranes Moist - Respiratory Exam Respiratory Exam: Clear to PA & Lateral, NORMAL BREATHING PATTERN - Cardiovascular Exam Cardiovascular Exam: REGULAR RHYTHM - GI/Abdominal Exam GI & Abdominal Exam: Normal Bowel Sounds, Soft. absent: Tenderness - Extremities Exam Extremities exam: full ROM - Neurological Exam Neurological exam: Alert, Normal Gait, Oriented x3 - Psychiatric Exam Psychiatric exam: Normal Affect, Normal Mood - Skin Skin Exam: Intact, Normal Color Discharge Plan - Discharge Medications Prescriptions: hydrALAZINE [Apresoline] 100 mg PO TID #90 tab Insulin Detemir [Levemir] 24 unit SC Q24H 30 Days unit Metoprolol Tartrate [Lopressor] 50 mg PO Q12H #60 tab amLODIPine [Norvasc] 10 mg PO DAILY #30 tab Pantoprazole [Protonix EC Tab] 20 mg PO DAILY #30 ect - Follow Up Plan Condition: FAIR Disposition: HOME/ ROUTINE Instructions: Insulin Detemir, Heart Healthy Diet, Dialysis Diet , Heart Failure, Adult (DC), Arteriovenous Fistula for Dialysis (DC), End Stage Kidney Disease (DC), Dialysis Catheter (DC), Acute Abdominal Pain (DC) Additional Instructions: Please follow up with , a week after leaving the hospital,please call for appointment. take your medications as instructed by your doctor,for questions regarding your medications,please call . Referrals: Ana Noel MD [Medical Doctor] -
== END 2018-06-25 18:28 | disposition home or self-care (01) | DRG 981 ==
LOC: C.ER 03:06 → C.6T 05:42 → C.9I 06-09 11:18 → C.6T 06-14 15:50
PROVIDERS: ADMIT Internal Medicine; ATTEND Internal Medicine
PROC: B5181ZA Fluoroscopy of Superior Vena Cava using Low Osmolar Contrast, Guidance (ICD-10-PCS; 2018-06-12)
PROC: 5A1D70Z Performance of Urinary Filtration, Intermittent, Less than 6 Hours Per Day (ICD-10-PCS; 2018-06-12)
PROC: 02HV33Z Insertion of Infusion Device into Superior Vena Cava, Percutaneous Approach (ICD-10-PCS; principal; 2018-06-12 14:15)
PROC: 5A1D70Z Performance of Urinary Filtration, Intermittent, Less than 6 Hours Per Day (ICD-10-PCS; 2018-06-13)
PROC: 5A1D70Z Performance of Urinary Filtration, Intermittent, Less than 6 Hours Per Day (ICD-10-PCS; 2018-06-15)
PROC: 5A1D70Z Performance of Urinary Filtration, Intermittent, Less than 6 Hours Per Day (ICD-10-PCS; 2018-06-18)
PROC: 031 Upper Arteries, Bypass (ICD-10-PCS; 2018-06-19)
PROC: 5A1D70Z Performance of Urinary Filtration, Intermittent, Less than 6 Hours Per Day (ICD-10-PCS; 2018-06-20)
PROC: 5A1D70Z Performance of Urinary Filtration, Intermittent, Less than 6 Hours Per Day (ICD-10-PCS; 2018-06-22)
PROC: 5A1D70Z Performance of Urinary Filtration, Intermittent, Less than 6 Hours Per Day (ICD-10-PCS; 2018-06-25)
DX: K56.609 Unspecified intestinal obstruction, unspecified as to partial versus complete obstruction (principal); N18.6 End stage renal disease; A41.59 Other Gram-negative sepsis; J15.0 Pneumonia due to Klebsiella pneumoniae; I21.4 Non-ST elevation (NSTEMI) myocardial infarction; I50.33 Acute on chronic diastolic (congestive) heart failure; N25.81 Secondary hyperparathyroidism of renal origin; N17.9 Acute kidney failure, unspecified; J44.0 Chronic obstructive pulmonary disease with (acute) lower respiratory infection; I13.2 Hypertensive heart and chronic kidney disease with heart failure and with stage 5 chronic kidney disease, or end stage renal disease; I50.30 Unspecified diastolic (congestive) heart failure; J98.11 Atelectasis; E78.5 Hyperlipidemia, unspecified; Z99.2 Dependence on renal dialysis; Z95.5 Presence of coronary angioplasty implant and graft; R09.02 Hypoxemia; Z79.4 Long term (current) use of insulin; I48.91 Unspecified atrial fibrillation; D63.1 Anemia in chronic kidney disease; E11.21 Type 2 diabetes mellitus with diabetic nephropathy; E11.22 Type 2 diabetes mellitus with diabetic chronic kidney disease; I25.10 Atherosclerotic heart disease of native coronary artery without angina pectoris; I27.20 Pulmonary hypertension, unspecified; I34.1 Nonrheumatic mitral (valve) prolapse; K40.90 Unilateral inguinal hernia, without obstruction or gangrene, not specified as recurrent; Z85.46 Personal history of malignant neoplasm of prostate; D50.9 Iron deficiency anemia, unspecified; Z87.891 Personal history of nicotine dependence; M89.9 Disorder of bone, unspecified; B96.1 Klebsiella pneumoniae [K. pneumoniae] as the cause of diseases classified elsewhere

== ENCOUNTER 2018-08-19 08:34 | Outpatient (CLI) | payer MEDICARE | END 2018-08-19 08:35 | disposition home or self-care (01) | LOC: C.VASC 08:34 ==

== ENCOUNTER 2018-09-20 07:48 | Outpatient (CLI) | payer MEDICARE | END 2018-09-20 07:49 | disposition home or self-care (01) | LOC: C.CARD 07:48 | DX: Z01.810 Encounter for preprocedural cardiovascular examination (principal); Z95.5 Presence of coronary angioplasty implant and graft ==